=== PATIENT | female | born 1965 | race Caucasian/White ===

== ENCOUNTER 2022-10-01 05:01 | Emergency (ER) | payer OTHER, SELFPAY ==
[2022-10-01 05:05] VITALS: BP 128/68; PULSE 87; RESP 16; TEMP 36.7; O2SAT 96; BMI 34.9
--- NOTE | 2022-10-01 05:25 | ED_ITS ---
HPI - General Adult General Chief complaint: Extremity Injury, Upper Stated complaint: upper arm pain Time Seen by Provider: 10/01/22 05:14 Source: patient Mode of arrival: walk-in Limitations: no limitations History of Present Illness HPI narrative: patient in the Emergency Room is coming after she had a blood drawn four days ago ,she said after multiple attempts to draw blood work up ,patient is complaining of right arm pain at the elbow level that started the day after the blood draw The patient denies any nausea vomiting or any other concerns she denies any fever or any trauma she did take Tylenol at home for the pain that did not help Review of systems otherwise negative Related Data Home Medications Medication Instructions Recorded Confirmed aspirin 81 mg chewable tablet 81 mg PO DAILY 10/01/22 10/01/22 atorvastatin 20 mg tablet mg 10/01/22 bupropion HCl 300 mg 24 hr tablet, mg PO 10/01/22 extended release buspirone 15 mg tablet mg 10/01/22 carvedilol 3.125 mg tablet mg 10/01/22 cholecalciferol (vitamin D3) 1,250 10/01/22 mcg (50,000 unit) capsule dapagliflozin 10 mg tablet mg 10/01/22 (Farxiga) diltiazem HCl 120 mg mg PO 10/01/22 capsule,extended release 24 hr (Cartia XT) furosemide 40 mg tablet mg 10/01/22 glimepiride 4 mg tablet mg 10/01/22 lisinopril 2.5 mg tablet mg 10/01/22 magnesium oxide 400 mg (241.3 mg mg 10/01/22 magnesium) tablet omeprazole 20 mg capsule,delayed mg 10/01/22 release pramipexole 1 mg tablet mg 10/01/22 pregabalin 150 mg capsule (Lyrica) 150 mg PO DAILY 10/01/22 10/01/22 semaglutide 0.25 mg or 0.5 mg (2 mg subcut 10/01/22 mg/1.5 mL) subcutaneous pen injector (Ozempic) trazodone 100 mg tablet mg 10/01/22 Previous Rx's Medication Instructions Recorded ibuprofen 600 mg tablet 600 mg PO Q8H #10 tabs 10/01/22 Allergies Allergy/AdvReac Type Severity Reaction Status Date / Time No Known Drug Allergies Allergy Verified 10/01/22 05:09 Review of Systems ROS Status of ROS 10 or more systems reviewed and unremarkable except as noted in history and below Exam Narrative Exam Narrative: Nurses notes and vital signs reviewed and patient is not hypoxic. General: Well-appearing and in no apparent distress. Skin: Warm, dry, no pallor noted. No rash. Head: Normocephalic, atraumatic. Neck: Supple, non-tender. Eye: Pupils are equal, round and EOMI. No scleral icterus. Ears, Nose, Mouth, and Throat: TM are clear, no nasal mucosal hypertrophy. Oral mucosa is moist, no posterior oropharynx erythema, uvula is mid-line Cardiovascular: Regular Rate and Rhythm without murmur, gallop or rub. Respiratory: No accessory muscle use or respiratory distress. Lungs are clear to auscultation, no wheezing, rales or rhonchi Chest Wall: no tenderness Back: No midline thoracic or lumbar vertebral tenderness. No CVA tenderness Musculoskeletal: on examination the patient presents into the left upper extremity showed an area of subcutaneous hematoma mostly secondary to the blood draw, there was no signs of infection limited 2-1 cm right upper extremity pt had small subcutanous hematoma less than 1 cm at the elbow anteriorly , the pt elbow joint had and didn't want you to the pain that the patient had no erythema no hotness no redness and there is no signs of any elbow infection. Have normal capillary refill in her fingers and no vascular injury with a good radial pulse bilaterally GI: Abdomen is soft, non-distended. Normal bowel sounds. No masses appreciated. No tenderness to palpation. No rebound, guarding, or rigidity noted. Neurological: A&O x4. No cranial nerve dysfunction observed. No truncal ataxia. Moves all extremities. Sensation intact. Psychiatric: Cooperative and interactive. Normal mood and affect. Constitutional Vital Signs - 24 hr 10/01/22 05:05 Temperature 98.1 F Pulse Rate [Monitor Left] 87 Respiratory Rate 16 Blood Pressure [Left Arm] 128/68 H Pulse Oximetry 96 Oxygen Delivery Method Room Air Course Vital Signs Vital signs: Vital Signs Temperature 98.1 F 10/01/22 05:05 Pulse Rate 87 10/01/22 05:05 Respiratory Rate 16 10/01/22 05:05 Blood Pressure 128/68 H 10/01/22 05:05 Pulse Oximetry 96 10/01/22 05:05 Oxygen Delivery Method Room Air 10/01/22 05:05 Temperature 98.1 F 10/01/22 05:05 Pulse Rate 87 10/01/22 05:05 Respiratory Rate 16 10/01/22 05:05 Blood Pressure 128/68 H 10/01/22 05:05 Pulse Oximetry 96 10/01/22 05:05 Oxygen Delivery Method Room Air 10/01/22 05:05 Medical Decision Making MDM Narrative Medical decision making narrative: the patient presenting mostly with the phlebitis secondary to her recent blood draw she was given Toradol in the Emergency Room in addition to apply an Rufino wra p and instructed about using ice at home and also ibuprofen every eight hours for three days at the anti-inflammatory course---possible phlebitis The patient was still instructed to come back in case of any redness, swelling and increasing pain The patient is to followup with primary care physician in next 2-3 days or to return to the emergency department should any of the signs or symptoms worsen or new symptoms develop. The patient agrees with the following Diagnosis and Treatment plan and the patient will be discharged home. Discharge Plan Discharge Chief Complaint: Extremity Injury, Upper Clinical Impression: Phlebitis Patient Disposition: Home, Self-Care Time of Disposition Decision: 05:32 Condition: Good Mode of Transportation: Private Vehicle Prescriptions / Home Meds: New ibuprofen 600 mg tablet 600 mg PO Q8H Qty: 10 0RF Rx Instructions: please take with food No Action pramipexole 1 mg tablet furosemide 40 mg tablet atorvastatin 20 mg tablet carvedilol 3.125 mg tablet magnesium oxide 400 mg (241.3 mg magnesium) tablet trazodone 100 mg tablet glimepiride 4 mg tablet omeprazole 20 mg capsule,delayed release(DR/EC) diltiazem HCl [Cartia XT] 120 mg capsule,extended release 24hr PO lisinopril 2.5 mg tablet buspirone 15 mg tablet bupropion HCl 300 mg tablet extended release 24 hr PO cholecalciferol (vitamin D3) 1,250 mcg (50,000 unit) capsule Farxiga 10 mg tablet Ozempic 0.25 mg or 0.5 mg(2 mg/1.5 mL) pen injector SUBCUT aspirin 81 mg tablet,chewable 81 mg PO DAILY pregabalin [Lyrica] 150 mg capsule 150 mg PO DAILY Instructions: Phlebitis (ED) Stand Alone Forms: Portal Instructions Referrals: Shaikh Villalta MD [Primary Care Provider] - 1 week
[2022-10-01] MEDS: KETOROLAC TROMETHAMINE 30 MG/ML VIAL IM (05:46)
--- NOTE | 2022-10-01 05:59 | PC.NURSE ---
Pts right forearm and elbow maira wraped and pt placed in a sling prior to discharge A work note was given for today
== END 2022-10-01 06:01 | disposition home or self-care (01) ==
PROVIDERS: Emergency Provider Emergency Medicine; PCP Internal Medicine
DX: I80.8 Phlebitis and thrombophlebitis of other sites (principal); Z79.899 Other long term (current) drug therapy; Z79.82 Long term (current) use of aspirin
CPT/HCPCS: 96372; 99284

== ENCOUNTER 2022-10-23 00:33 | Observation (INO) | payer OTHER, SELFPAY ==
[2022-10-23] VITALS (26 sets, daily range): BP systolic 68–134; BP diastolic 48–89; PULSE 71–94; RESP 13–25; TEMP 36.4–36.5; O2SAT 3–96; BMI 35.2; BMI 36.7
--- NOTE | 2022-10-23 00:43 | ECG_ITS ---
[facility] Test Date: 2022-10-23 Pat Name: RAQUEL MAURICE Department: Room: - Gender: Female [employer] Person: : 1965 Requested By: SHAIKH SAWYER Order Number: [id number] Reading MD: MARIA FERNANDA MAST Measurements Intervals [place] Rate: 72 P: 62 VA: 178 QRS: 38 QRSD: 88 T: 60 QT: 396 QTc: 421 Interpretive Statements 1100 Sinus rhythm 4068 Nonspecific [place] abnormality 9130 borderline ECG No previous ECG available for comparison Electronically Signed On 10-23-2022 6:57:01 EDT by MARIA FERNANDA MAST
[2022-10-23 00:50] LABS: Glucometer 162 mg/dL (74-106)
[2022-10-23] MEDS: 0.9 % SODIUM CHLORIDE 1,000 ML 999 ML IV (01:04)
--- NOTE | 2022-10-23 01:06 | ED_ITS ---
HPI - Dizziness General Chief Complaint: Dizziness Stated Complaint: DIZZINESS Time Seen by Provider: 10/23/22 00:43 Source: patient Mode of arrival: walk-in Limitations: no limitations History of Present Illness HPI Narrative: patient experienced dizziness intermittently for the last two weeks. She has been taking Ozempic and has lost a lot of weight. She admittedly does not eat or drink enough. She told me that she works two jobs and it is difficult for her to drink enough water each day. During these episodes she describes feeling light headed and then things start to go black, like I am going to pass out but I don't. She said that her stationary fireman and her motor equipment lieutenant both monitor her labs and that her kidney function has been getting worse . Related Data Home Medications Medication Instructions Recorded Confirmed aspirin 81 mg chewable tablet 81 mg PO DAILY 10/01/22 10/01/22 atorvastatin 20 mg tablet mg 10/01/22 bupropion HCl 300 mg 24 hr tablet, mg PO 10/01/22 extended release buspirone 15 mg tablet mg 10/01/22 carvedilol 3.125 mg tablet mg 10/01/22 cholecalciferol (vitamin D3) 1,250 10/01/22 mcg (50,000 unit) capsule dapagliflozin 10 mg tablet mg 10/01/22 (Farxiga) diltiazem HCl 120 mg mg PO 10/01/22 capsule,extended release 24 hr (Cartia XT) furosemide 40 mg tablet mg 10/01/22 glimepiride 4 mg tablet mg 10/01/22 lisinopril 2.5 mg tablet mg 10/01/22 magnesium oxide 400 mg (241.3 mg mg 10/01/22 magnesium) tablet omeprazole 20 mg capsule,delayed mg 10/01/22 release pramipexole 1 mg tablet mg 10/01/22 pregabalin 150 mg capsule (Lyrica) 150 mg PO DAILY 10/01/22 10/01/22 semaglutide 0.25 mg or 0.5 mg (2 mg subcut 10/01/22 mg/1.5 mL) subcutaneous pen injector (Ozempic) trazodone 100 mg tablet mg 10/01/22 Previous Rx's Medication Instructions Recorded ibuprofen 600 mg tablet 600 mg PO Q8H #10 tabs 10/01/22 Allergies Allergy/AdvReac Type Severity Reaction Status Date / Time No Known Drug Allergies Allergy Verified 10/01/22 05:09 [facility] Social History Smoking status: Former smoker Exam Narrative Exam Narrative: Nurses notes and vital signs reviewed and patient is not hypoxic. afebrile HYPOTENSIVE General: Well-appearing and in no apparent distress. Skin: Warm, dry, no pallor noted. No rash. Head: Normocephalic, atraumatic. Eye: Pupils are equal, round and EOMI. No scleral icterus. Ears, Nose, Mouth, and Throat: Oral mucosa is dry Cardiovascular: Regular Rate and Rhythm without murmur, gallop or rub. Respiratory: No accessory muscle use or respiratory distress. Lungs are clear to auscultation, no wheezing, rales or rhonchi Musculoskeletal: normal ROM, no calf or popliteal tenderness, no lower extremity edema/swelling GI: Abdomen is soft, non-distended. Normal bowel sounds. No tenderness to palpation. No rebound, guarding, or rigidity noted. Neurological: A&O x4. No cranial nerve dysfunction observed. No truncal ataxia. Moves all extremities. Sensation intact. Psychiatric: Cooperative and interactive. Normal mood and affect. Constitutional Vital Signs - 24 hr 10/23/22 00:43 10/23/22 00:52 10/23/22 00:43 Temperature 97.6 F Pulse Rate Pulse Rate [Monitor Right] 78 Pulse Rate [orthostatic lying] 87 Pulse Rate [orthostatic sitting Right] Pulse Rate [orthostatic standing Right] Respiratory Rate 16 Blood Pressure Blood Pressure [Right Arm] 87/68 L Blood Pressure [orthostatic lying] 87/56 L Blood Pressure [orthostatic sitting Right Arm] Blood Pressure [orthostatic standing Right Arm] Pulse Oximetry 95 96 Oxygen Delivery Method Room Air 10/23/22 00:46 10/23/22 00:46 10/23/22 00:52 Temperature Pulse Rate 87 Pulse Rate [Monitor Right] Pulse Rate [orthostatic lying] Pulse Rate [orthostatic sitting Right] Pulse Rate [orthostatic standing Right] Respiratory Rate 16 Blood Pressure 87/68 L 87/56 L Blood Pressure [Right Arm] Blood Pressure [orthostatic lying] Blood Pressure [orthostatic sitting Right Arm] Blood Pressure [orthostatic standing Right Arm] Pulse Oximetry 3 L Oxygen Delivery Method 10/23/22 00:54 10/23/22 00:55 10/23/22 01:04 Temperature Pulse Rate 94 H 77 74 Pulse Rate [Monitor Right] Pulse Rate [orthostatic lying] Pulse Rate [orthostatic sitting Right] Pulse Rate [orthostatic standing Right] Respiratory Rate 16 18 21 Blood Pressure 72/52 L 68/48 L 91/50 L Blood Pressure [Right Arm] Blood Pressure [orthostatic lying] Blood Pressure [orthostatic sitting Right Arm] Blood Pressure [orthostatic standing Right Arm] Pulse Oximetry 95 Oxygen Delivery Method 10/23/22 00:54 10/23/22 00:55 10/23/22 01:15 Temperature Pulse Rate 75 Pulse Rate [Monitor Right] Pulse Rate [orthostatic lying] Pulse Rate [orthostatic sitting Right] 94 H Pulse Rate [orthostatic standing Right] 77 Respiratory Rate 18 Blood Pressure 85/54 L Blood Pressure [Right Arm] Blood Pressure [orthostatic lying] Blood Pressure [orthostatic sitting Right Arm] 72/52 L Blood Pressure [orthostatic standing Right Arm] 68/48 L Pulse Oximetry Oxygen Delivery Method 10/23/22 01:30 10/23/22 01:42 10/23/22 01:45 Temperature Pulse Rate 77 73 77 Pulse Rate [Monitor Right] Pulse Rate [orthostatic lying] Pulse Rate [orthostatic sitting Right] Pulse Rate [orthostatic standing Right] Respiratory Rate 25 H 18 19 Blood Pressure 97/59 L 89/54 L 89/57 L Blood Pressure [Right Arm] Blood Pressure [orthostatic lying] Blood Pressure [orthostatic sitting Right Arm] Blood Pressure [orthostatic standing Right Arm] Pulse Oximetry Oxygen Delivery Method 10/23/22 01:42 10/23/22 01:44 10/23/22 01:45 Temperature Pulse Rate Pulse Rate [Monitor Right] Pulse Rate [orthostatic lying] 76 Pulse Rate [orthostatic sitting Right] 81 Pulse Rate [orthostatic standing Right] 86 Respiratory Rate Blood Pressure Blood Pressure [Right Arm] Blood Pressure [orthostatic lying] 89/54 L Blood Pressure [orthostatic sitting Right Arm] 88/58 L Blood Pressure [orthostatic standing Right Arm] 89/57 L Pulse Oximetry Oxygen Delivery Method 10/23/22 01:45 10/23/22 02:00 Temperature Pulse Rate 82 79 Pulse Rate [Monitor Right] Pulse Rate [orthostatic lying] Pulse Rate [orthostatic sitting Right] Pulse Rate [orthostatic standing Right] Respiratory Rate 17 24 Blood Pressure 89/57 L 91/51 L Blood Pressure [Right Arm] Blood Pressure [orthostatic lying] Blood Pressure [orthostatic sitting Right Arm] Blood Pressure [orthostatic standing Right Arm] Pulse Oximetry Oxygen Delivery Method Course Vital Signs Vital signs: Vital Signs Temperature 97.6 F 10/23/22 00:43 Pulse Rate 78 10/23/22 00:43 Respiratory Rate 16 10/23/22 00:43 Blood Pressure 87/68 L 10/23/22 00:43 Pulse Oximetry 95 10/23/22 00:43 Oxygen Delivery Method Room Air 10/23/22 00:43 Temperature 97.6 F 10/23/22 00:43 Pulse Rate 79 10/23/22 02:00 Respiratory Rate 24 10/23/22 02:00 Blood Pressure 91/51 L 10/23/22 02:00 Pulse Oximetry 95 10/23/22 00:55 Oxygen Delivery Method Room Air 10/23/22 00:43 MDM - Dizziness MDM Narrative Medical decision making narrative: the patient presents with dizziness. Patient was placed on compliance monitor and EKG obtained. Blood drawn and sent for evaluation. She was found to have orthostatic hypotension. She was ordered to receive a liter of normal saline IV fluid. POC glucose = 162. Normal CBC. Elevated glucose and slightly decreased Na. Normal K. CO2 = 23. Elevated BUN and Cr = 41, 3.1. This is markedly worse than her last values of 31, 1.75 on 08/07/22. Repeat orthostatics after 1st liter of NS IVF were negative but she remained hypotensive. She was ordered to receive another liter of NS IVF. She has hyperglycemia and admittedly decreased oral intake of food and fluids. She has markedly worsened renal function. Her blood pressure is only slowly increasing. She may be an additional 2-3 liters behind on her fluids. I reached out to the tele-hospitalist complex care nurse practitioner to discuss an observation admission for dehydration and acute renal injury for this patient. Dr Fong asked that the patient be obs admit to med/surg with telemetry. Patient agreeable to admission Lab Data Attestation: I reviewed the patient's lab results. Labs: Lab Results 10/23/22 10/23/22 Range/Units 00:20 00:49 WBC 8.5 (4.0-11.0) 10^3/uL RBC 4.48 (4.20-5.40) 10^6/uL Hgb 13.3 (12.0-16.0) g/dL Hct 39.9 (36.0-48.0) % MCV 89.1 (81.0-99.0) fL MCH 29.7 (26.7-34.0) pg MCHC 33.3 (29.9-35.2) g/dL RDW 14.1 (11.0-15.0) % Plt Count 209 (150-450) 10^3/uL MPV 9.8 (9.5-13.5) fL Neut % (Auto) 68.1 (43.0-75.0) % Lymph % (Auto) 21.4 (20.5-60.0) % [place] % (Auto) 8.2 (1.7-12.0) % Eos % (Auto) 1.1 (0.9-7.0) % Baso % (Auto) 0.8 (0.2-2.0) % Neut # (Auto) 5.8 (1.4-6.5) 10^3/uL Lymph # (Auto) 1.8 (1.2-3.8) 10^3/uL [place] # (Auto) 0.7 (0.3-0.8) 10^3/uL Eos # (Auto) 0.1 (0.0-0.7) 10^3/uL Baso # (Auto) 0.1 (0.0-0.1) 10^3/uL Abs Immat Gran (auto) 0.03 (0.00-0.03) 10^3/uL Imm/Tot Granulo (auto) 0.4 (0.0-0.5) % Sodium 133 L (136-145) mmol/L Potassium 4.0 (3.5-5.1) mmol/L Chloride 99 (98-107) mmol/L Carbon Dioxide 23.1 (21.0-32.0) mmol/L Anion Gap 14.9 BUN 41.0 H (7.0-18.0) mg/dL Creatinine 3.10 H (0.55-1.02) mg/dL Est GFR ( Amer) 19 L (>=60) Est GFR (Non-Af Amer) 16 L (>=60) BUN/Creatinine Ratio 13.2 Glucose 159 H (74-106) mg/dL Calcium 9.5 (8.5-10.1) mg/dL Total Bilirubin 0.5 (0.2-1.0) mg/dL AST 15 (15-37) U/L ALT 20 (14-59) U/L Alkaline Phosphatase 136 H (46-116) U/L Total Protein 8.4 H (6.4-8.2) g/dL Albumin 3.7 (3.4-5.0) g/dL Globulin 4.7 g/dL Albumin/Globulin Ratio 0.8 POC Glucose 162 H (74-106) mg/dL ECG Data Interpretation: EKG interpretation: Emergency Department physician interpretation. Normal sinus rhythm at 72bpm. Normal axis, normal intervals and non-specific ST changes. No ST segment elevation or depression. Discharge Plan Discharge Chief Complaint: Dizziness Clinical Impression: Acute kidney injury, Orthostatic hypotension Patient Disposition: Admitted as Observation Time of Disposition Decision: 02:43 Prescriptions / Home Meds: No Action pramipexole 1 mg tablet furosemide 40 mg tablet atorvastatin 20 mg tablet carvedilol 3.125 mg tablet magnesium oxide 400 mg (241.3 mg magnesium) tablet trazodone 100 mg tablet glimepiride 4 mg tablet omeprazole 20 mg capsule,delayed release(DR/EC) diltiazem HCl [Cartia XT] 120 mg capsule,extended release 24hr PO lisinopril 2.5 mg tablet buspirone 15 mg tablet bupropion HCl 300 mg tablet extended release 24 hr PO cholecalciferol (vitamin D3) 1,250 mcg (50,000 unit) capsule Farxiga 10 mg tablet Ozempic 0.25 mg or 0.5 mg(2 mg/1.5 mL) pen injector SUBCUT aspirin 81 mg tablet,chewable 81 mg PO DAILY pregabalin [Lyrica] 150 mg capsule 150 mg PO DAILY ibuprofen 600 mg tablet 600 mg PO Q8H Qty: 10 0RF Rx Instructions: please take with food Additional Instructions: admit to dr yang, med/surg with telemetry Referrals: Shaikh Villalta MD [Primary Care Provider] - 1 week
[2022-10-23 01:09] LABS: Basophils Absolute Auto 0.1 10^3/uL (0.0-0.1); Basophils Percent Auto 0.8 % (0.2-2.0); Eosinophils Absolute Auto 0.1 10^3/uL (0.0-0.7); Eosinophils Percent Auto 1.1 % (0.9-7.0); Hematocrit 39.9 % (36.0-48.0); Hemoglobin 13.3 g/dL (12.0-16.0); Immature Granulocytes Abs Auto 0.03 10^3/uL (0.00-0.03); Immature Granulocytes Pct Auto 0.4 % (0.0-0.5); Lymphocytes Absolute Auto 1.8 10^3/uL (1.2-3.8); Lymphocytes Percent Auto 21.4 % (20.5-60.0); Mean Corpuscular HGB Conc 33.3 g/dL (29.9-35.2); Mean Corpuscular Hemoglobin 29.7 pg (26.7-34.0); Mean Corpuscular Volume 89.1 fL (81.0-99.0); Mean Platelet Volume 9.8 fL (9.5-13.5); Monocytes Absolute Auto 0.7 10^3/uL (0.3-0.8); Monocytes Percent Auto 8.2 % (1.7-12.0); Neutrophils Absolute Auto 5.8 10^3/uL (1.4-6.5); Neutrophils Percent Auto 68.1 % (43.0-75.0); Platelet Count 209 10^3/uL (150-450); Red Blood Count 4.48 10^6/uL (4.20-5.40); Red Cell Distribution Width 14.1 % (11.0-15.0); White Blood Count 8.5 10^3/uL (4.0-11.0)
[2022-10-23 01:27] LABS: Alanine Aminotransferase 20 U/L (14-59); Albumin Globulin Ratio 0.8; Albumin Level 3.7 g/dL (3.4-5.0); Alkaline Phosphatase 136 U/L (46-116); Anion Gap 14.9; Aspartate Amino Transferase 15 U/L (15-37); BUN Creatinine Ratio 13.2; Bilirubin Total 0.5 mg/dL (0.2-1.0); Calcium 9.5 mg/dL (8.5-10.1); Carbon Dioxide 23.1 mmol/L (21.0-32.0); Chloride 99 mmol/L (98-107); Estimated GFR (African America 19 (>=60); Estimated GFR (Non-African Ame 16 (>=60); Globulin 4.7 g/dL; Glucose 159 mg/dL (74-106); Sodium 133 mmol/L (136-145); Total Protein 8.4 g/dL (6.4-8.2)
[2022-10-23] MEDS: 0.9 % SODIUM CHLORIDE 1,000 ML 1000 ML IV (02:10)
--- NOTE | 2022-10-23 04:53 | P.PN_ITS ---
Progress Note: Subjective Subjective Interval history: Patient complains of weakness, dizziness This is a 56 years old female presents with above complaints. Patient's past medical history significant for chronic kidney disease, diabetes, hypertension. For the last year patient confusion Ozempic and attempt to lose weight. She succeeded, but seems that her oral intake significantly diminished as well. On presentation emergency room patient found to have significantly worsening renal parameters (increased BUN and creatinine. Patient has orthostatic changes in her vital signs. Admitted for IV hydration. Exam Narrative Exam Narrative: Physical Exam: Not in distress, pleasant, lucid, cooperative, Head - atraumatic, eyes - pupils equal, round, reactive to light, extra ocular movement intact, MMM Neck - supple, thyroid not enlarged, LN not palpated Lungs - clear to auscultation, no dullness on percussion CVS - heart sounds S1, S2, no additional murmurs gallop, regular rate and rhythm Gastrointestinal?abdomen is soft, non-tender, non-distended, no organomegaly, positive bowel sounds Extremities no clubbing, cyanosis or edema Neurological?cranial nerve II?XII grossly intact, no meningeal signs, no cerebellar signs, no sensory deficit Musculoskeletal - joints, no effusions, ROM preserved Dermatological - the skin dry, warm, no rashes Psychiatric?patient is AAO X3, patient has normal affect Constitutional Vital Signs - 24 hr 10/23/22 00:43 10/23/22 00:52 10/23/22 00:43 Temperature 97.6 F Pulse Rate Pulse Rate [Monitor Right] 78 Pulse Rate [orthostatic lying] 87 Pulse Rate [orthostatic sitting Right] Pulse Rate [orthostatic standing Right] Respiratory Rate 16 Blood Pressure Blood Pressure [Right Arm] 87/68 L Blood Pressure [orthostatic lying] 87/56 L Blood Pressure [orthostatic sitting Right Arm] Blood Pressure [orthostatic standing Right Arm] Pulse Oximetry 95 96 Oxygen Delivery Method Room Air 10/23/22 00:46 10/23/22 00:46 10/23/22 00:52 Temperature Pulse Rate 87 Pulse Rate [Monitor Right] Pulse Rate [orthostatic lying] Pulse Rate [orthostatic sitting Right] Pulse Rate [orthostatic standing Right] Respiratory Rate 16 Blood Pressure 87/68 L 87/56 L Blood Pressure [Right Arm] Blood Pressure [orthostatic lying] Blood Pressure [orthostatic sitting Right Arm] Blood Pressure [orthostatic standing Right Arm] Pulse Oximetry 3 L Oxygen Delivery Method 10/23/22 00:54 10/23/22 00:55 10/23/22 01:04 Temperature Pulse Rate 94 H 77 74 Pulse Rate [Monitor Right] Pulse Rate [orthostatic lying] Pulse Rate [orthostatic sitting Right] Pulse Rate [orthostatic standing Right] Respiratory Rate 16 18 21 Blood Pressure 72/52 L 68/48 L 91/50 L Blood Pressure [Right Arm] Blood Pressure [orthostatic lying] Blood Pressure [orthostatic sitting Right Arm] Blood Pressure [orthostatic standing Right Arm] Pulse Oximetry 95 Oxygen Delivery Method 10/23/22 00:54 10/23/22 00:55 10/23/22 01:15 Temperature Pulse Rate 75 Pulse Rate [Monitor Right] Pulse Rate [orthostatic lying] Pulse Rate [orthostatic sitting Right] 94 H Pulse Rate [orthostatic standing Right] 77 Respiratory Rate 18 Blood Pressure 85/54 L Blood Pressure [Right Arm] Blood Pressure [orthostatic lying] Blood Pressure [orthostatic sitting Right Arm] 72/52 L Blood Pressure [orthostatic standing Right Arm] 68/48 L Pulse Oximetry Oxygen Delivery Method 10/23/22 01:30 10/23/22 01:42 10/23/22 01:45 Temperature Pulse Rate 77 73 77 Pulse Rate [Monitor Right] Pulse Rate [orthostatic lying] Pulse Rate [orthostatic sitting Right] Pulse Rate [orthostatic standing Right] Respiratory Rate 25 H 18 19 Blood Pressure 97/59 L 89/54 L 89/57 L Blood Pressure [Right Arm] Blood Pressure [orthostatic lying] Blood Pressure [orthostatic sitting Right Arm] Blood Pressure [orthostatic standing Right Arm] Pulse Oximetry Oxygen Delivery Method 10/23/22 01:42 10/23/22 01:44 10/23/22 01:45 Temperature Pulse Rate Pulse Rate [Monitor Right] Pulse Rate [orthostatic lying] 76 Pulse Rate [orthostatic sitting Right] 81 Pulse Rate [orthostatic standing Right] 86 Respiratory Rate Blood Pressure Blood Pressure [Right Arm] Blood Pressure [orthostatic lying] 89/54 L Blood Pressure [orthostatic sitting Right Arm] 88/58 L Blood Pressure [orthostatic standing Right Arm] 89/57 L Pulse Oximetry Oxygen Delivery Method 10/23/22 01:45 10/23/22 02:00 10/23/22 02:00 Temperature Pulse Rate 82 79 76 Pulse Rate [Monitor Right] Pulse Rate [orthostatic lying] Pulse Rate [orthostatic sitting Right] Pulse Rate [orthostatic standing Right] Respiratory Rate 17 24 13 Blood Pressure 89/57 L 91/51 L 91/51 L Blood Pressure [Right Arm] Blood Pressure [orthostatic lying] Blood Pressure [orthostatic sitting Right Arm] Blood Pressure [orthostatic standing Right Arm] Pulse Oximetry Oxygen Delivery Method 10/23/22 02:15 10/23/22 02:30 10/23/22 03:20 Temperature Pulse Rate 76 79 86 Pulse Rate [Monitor Right] Pulse Rate [orthostatic lying] Pulse Rate [orthostatic sitting Right] Pulse Rate [orthostatic standing Right] Respiratory Rate 16 16 Blood Pressure 86/51 L 94/57 L Blood Pressure [Right Arm] Blood Pressure [orthostatic lying] Blood Pressure [orthostatic sitting Right Arm] Blood Pressure [orthostatic standing Right Arm] Pulse Oximetry Oxygen Delivery Method 10/23/22 02:46 10/23/22 03:13 10/23/22 03:20 Temperature Pulse Rate 77 93 H Pulse Rate [Monitor Right] Pulse Rate [orthostatic lying] Pulse Rate [orthostatic sitting Right] Pulse Rate [orthostatic standing Right] Respiratory Rate 21 25 H Blood Pressure 105/57 L Blood Pressure [Right Arm] Blood Pressure [orthostatic lying] Blood Pressure [orthostatic sitting Right Arm] Blood Pressure [orthostatic standing Right Arm] Pulse Oximetry Oxygen Delivery Method 10/23/22 03:30 10/23/22 03:40 10/23/22 03:53 Temperature Pulse Rate 71 77 74 Pulse Rate [Monitor Right] Pulse Rate [orthostatic lying] Pulse Rate [orthostatic sitting Right] Pulse Rate [orthostatic standing Right] Respiratory Rate 13 20 Blood Pressure Blood Pressure [Right Arm] Blood Pressure [orthostatic lying] Blood Pressure [orthostatic sitting Right Arm] Blood Pressure [orthostatic standing Right Arm] Pulse Oximetry Oxygen Delivery Method Progress Note: Objective Labs Labs: Short CBC 10/23/22 Range/Units 00:20 WBC 8.5 (4.0-11.0) 10^3/uL Hgb 13.3 (12.0-16.0) g/dL Hct 39.9 (36.0-48.0) % Plt Count 209 (150-450) 10^3/uL BMP 10/23/22 00:20 Sodium 133 L Potassium 4.0 Chloride 99 Carbon Dioxide 23.1 BUN 41.0 H Creatinine 3.10 H Glucose 159 H Calcium 9.5 Liver Function 10/23/22 Range/Units 00:20 Total Bilirubin 0.5 (0.2-1.0) mg/dL AST 15 (15-37) U/L ALT 20 (14-59) U/L Alkaline Phosphatase 136 H (46-116) U/L Albumin 3.7 (3.4-5.0) g/dL Progress Note: A&P Assessment and Plan (1) Acute kidney injury: Assessment and Plan: To be related to side effects of Ozempic that is patient appears to be dehydrated Started on IV fluid resuscitation Monitor kidney function closely Avoid use of nephrotoxic medications (2) Orthostatic hypotension: Assessment and Plan: Related to above Fall precautions in place Continue with IV fluids Check orthostatic vital signs (3) Diabetes: Assessment and Plan: DM- continue with ADA diet - hold off oral hypoglycemic agents while in the hospital to avoid hypoglycemic episodes - frequent accuchecks (TID AC + HS) - will provide coverage with long acting insulin as well as short acting insulin with meals - adjust as needed - hypoglycemia protocol in place (4) Hypertension: Assessment and Plan: Patient blood pressure appears to be low. Hold home antihypertensive medications (5) Chronic kidney disease (CKD): Assessment and Plan: Patient's baseline kidney function got significantly worse. Monitor BUN and creatinine after IV fluid challenge Telemedicine Attestation Telemedicine Attestation I conducted this encounter from [[place]] via secure live, [id number] video conference with the patient, located at [facility] with [dehydration]. Prior to the interview, the risks and benefits of telemedicine were discussed with the patient and verbal consent was obtained.
[2022-10-23 06:13] LABS: Basophils Absolute Auto 0.1 10^3/uL (0.0-0.1); Basophils Percent Auto 0.7 % (0.2-2.0); Eosinophils Absolute Auto 0.1 10^3/uL (0.0-0.7); Eosinophils Percent Auto 0.8 % (0.9-7.0); Hematocrit 39.1 % (36.0-48.0); Hemoglobin 12.7 g/dL (12.0-16.0); Immature Granulocytes Abs Auto 0.02 10^3/uL (0.00-0.03); Immature Granulocytes Pct Auto 0.3 % (0.0-0.5); Lymphocytes Absolute Auto 1.2 10^3/uL (1.2-3.8); Mean Corpuscular HGB Conc 32.5 g/dL (29.9-35.2); Mean Corpuscular Hemoglobin 29.5 pg (26.7-34.0); Mean Corpuscular Volume 90.7 fL (81.0-99.0); Mean Platelet Volume 9.7 fL (9.5-13.5); Monocytes Absolute Auto 0.5 10^3/uL (0.3-0.8); Monocytes Percent Auto 7.6 % (1.7-12.0); Neutrophils Absolute Auto 5.2 10^3/uL (1.4-6.5); Neutrophils Percent Auto 73.6 % (43.0-75.0); Platelet Count 174 10^3/uL (150-450); Red Blood Count 4.31 10^6/uL (4.20-5.40); Red Cell Distribution Width 14.1 % (11.0-15.0); White Blood Count 7.1 10^3/uL (4.0-11.0)
[2022-10-23] MEDS: 0.9 % SODIUM CHLORIDE 1,000 ML 100 ML IV (06:15)
[2022-10-23 06:33] LABS: Alanine Aminotransferase 18 U/L (14-59); Albumin Globulin Ratio 0.8; Albumin Level 3.4 g/dL (3.4-5.0); Alkaline Phosphatase 131 U/L (46-116); Anion Gap 10.3; Aspartate Amino Transferase 11 U/L (15-37); BUN Creatinine Ratio 16.2; Bilirubin Total 0.3 mg/dL (0.2-1.0); Calcium 9.3 mg/dL (8.5-10.1); Carbon Dioxide 25.9 mmol/L (21.0-32.0); Chloride 103 mmol/L (98-107); Chol HDL Ratio 3.7; Cholesterol 169 mg/dL (<=200); Estimated GFR (African America 23 (>=60); Estimated GFR (Non-African Ame 19 (>=60); Globulin 4.3 g/dL; Glucose 128 mg/dL (74-106); HDL Cholesterol 46 mg/dL (40-60); Magnesium 2.2 mg/dL (1.8-2.4); Potassium 4.2 mmol/L (3.5-5.1); Prealbumin 32.8 mg/dL (20.9-45.5); Sodium 135 mmol/L (136-145); Total Protein 7.7 g/dL (6.4-8.2); Triglycerides 180 mg/dL (<=150)
[2022-10-23] MEDS: MAGNESIUM OXIDE 400 MG TABLET PO (08:40)
[2022-10-23] MEDS: OMEPRAZOLE 20 MG CAPSULE.DR 40 MG PO (08:40)
[2022-10-23] MEDS: DILTIAZEM HCL 120 MG CAP.ER.24H PO (08:40)
[2022-10-23] MEDS: PRAMIPEXOLE 1 MG TABLET 0.5 MG PO (08:41)
[2022-10-23] MEDS: PREGABALIN 75 MG CAPSULE 150 MG PO (08:41)
--- NOTE | 2022-10-23 10:22 | PM.HP ---
H&P: HPI History of Present Illness Chief complaint: Lightheadedness Narrative: 56 y/o female to ER c/o lightheadedness for over 1 week. Feels very lightheaded when up and moving. Develops black on sides of vision and feels like will pass out but no LOC. Working a lot and not drinking as much over past week. Continued symptoms and to ER. Afebrile. BP low and orthostatic hypotension in ER. Labs showed MELODY. Started IV fluids and admitted. Much improved overnight. Not having lightheadedness and BP improved. Ambulating around room without difficulty. Review of Systems ROS Constitutional Denies: fever, chills or night sweats Cardiovascular Reports: lightheadedness; Denies: chest pain, palpitations or edema Respiratory Denies: shortness of breath, cough or wheezing Gastrointestinal Denies: abdominal pain, nausea, vomiting or diarrhea Genitourinary Denies: painful urination PFSH PFSH Social History Smoking status: Former smoker Meds Home Medications and Allergies Home Medications Medication Instructions Recorded Confirmed Type aspirin 81 mg chewable tablet 81 mg PO DAILY 10/01/22 10/01/22 History atorvastatin 20 mg tablet mg 10/01/22 History bupropion HCl 300 mg 24 hr tablet, mg PO 10/01/22 History extended release buspirone 15 mg tablet mg 10/01/22 History carvedilol 3.125 mg tablet mg 10/01/22 History cholecalciferol (vitamin D3) 1,250 10/01/22 History mcg (50,000 unit) capsule dapagliflozin 10 mg tablet mg 10/01/22 History (Farxiga) diltiazem HCl 120 mg mg PO 10/01/22 History capsule,extended release 24 hr (Cartia XT) furosemide 40 mg tablet mg 10/01/22 History glimepiride 4 mg tablet mg 10/01/22 History ibuprofen 600 mg tablet 600 mg PO Q8H #10 tabs 10/01/22 Rx lisinopril 2.5 mg tablet mg 10/01/22 History magnesium oxide 400 mg (241.3 mg mg 10/01/22 History magnesium) tablet omeprazole 20 mg capsule,delayed mg 10/01/22 History release pramipexole 1 mg tablet mg 10/01/22 History pregabalin 150 mg capsule (Lyrica) 150 mg PO DAILY 10/01/22 10/01/22 History semaglutide 0.25 mg or 0.5 mg (2 mg subcut 10/01/22 History mg/1.5 mL) subcutaneous pen injector (Ozempic) trazodone 100 mg tablet mg 10/01/22 History Allergies Allergy/AdvReac Type Severity Reaction Status Date / Time No Known Drug Allergies Allergy Verified 10/01/22 05:09 Exam Constitutional Vital Signs - 24 hr 10/23/22 00:43 10/23/22 00:52 10/23/22 00:43 Temperature 97.6 F Pulse Rate Pulse Rate [Monitor Right] 78 Pulse Rate [orthostatic lying] 87 Pulse Rate [orthostatic sitting Right] Pulse Rate [orthostatic standing Right] Respiratory Rate 16 Blood Pressure Blood Pressure [Right Arm] 87/68 L Blood Pressure [orthostatic lying] 87/56 L Blood Pressure [orthostatic sitting Right Arm] Blood Pressure [orthostatic standing Right Arm] Pulse Oximetry 95 96 Oxygen Delivery Method Room Air 10/23/22 00:46 10/23/22 00:46 10/23/22 00:52 Temperature Pulse Rate 87 Pulse Rate [Monitor Right] Pulse Rate [orthostatic lying] Pulse Rate [orthostatic sitting Right] Pulse Rate [orthostatic standing Right] Respiratory Rate 16 Blood Pressure 87/68 L 87/56 L Blood Pressure [Right Arm] Blood Pressure [orthostatic lying] Blood Pressure [orthostatic sitting Right Arm] Blood Pressure [orthostatic standing Right Arm] Pulse Oximetry 3 L Oxygen Delivery Method 10/23/22 00:54 10/23/22 00:55 10/23/22 01:04 Temperature Pulse Rate 94 H 77 74 Pulse Rate [Monitor Right] Pulse Rate [orthostatic lying] Pulse Rate [orthostatic sitting Right] Pulse Rate [orthostatic standing Right] Respiratory Rate 16 18 21 Blood Pressure 72/52 L 68/48 L 91/50 L Blood Pressure [Right Arm] Blood Pressure [orthostatic lying] Blood Pressure [orthostatic sitting Right Arm] Blood Pressure [orthostatic standing Right Arm] Pulse Oximetry 95 Oxygen Delivery Method 10/23/22 00:54 10/23/22 00:55 10/23/22 01:15 Temperature Pulse Rate 75 Pulse Rate [Monitor Right] Pulse Rate [orthostatic lying] Pulse Rate [orthostatic sitting Right] 94 H Pulse Rate [orthostatic standing Right] 77 Respiratory Rate 18 Blood Pressure 85/54 L Blood Pressure [Right Arm] Blood Pressure [orthostatic lying] Blood Pressure [orthostatic sitting Right Arm] 72/52 L Blood Pressure [orthostatic standing Right Arm] 68/48 L Pulse Oximetry Oxygen Delivery Method 10/23/22 01:30 10/23/22 01:42 10/23/22 01:45 Temperature Pulse Rate 77 73 77 Pulse Rate [Monitor Right] Pulse Rate [orthostatic lying] Pulse Rate [orthostatic sitting Right] Pulse Rate [orthostatic standing Right] Respiratory Rate 25 H 18 19 Blood Pressure 97/59 L 89/54 L 89/57 L Blood Pressure [Right Arm] Blood Pressure [orthostatic lying] Blood Pressure [orthostatic sitting Right Arm] Blood Pressure [orthostatic standing Right Arm] Pulse Oximetry Oxygen Delivery Method 10/23/22 01:42 10/23/22 01:44 10/23/22 01:45 Temperature Pulse Rate Pulse Rate [Monitor Right] Pulse Rate [orthostatic lying] 76 Pulse Rate [orthostatic sitting Right] 81 Pulse Rate [orthostatic standing Right] 86 Respiratory Rate Blood Pressure Blood Pressure [Right Arm] Blood Pressure [orthostatic lying] 89/54 L Blood Pressure [orthostatic sitting Right Arm] 88/58 L Blood Pressure [orthostatic standing Right Arm] 89/57 L Pulse Oximetry Oxygen Delivery Method 10/23/22 01:45 10/23/22 02:00 10/23/22 02:00 Temperature Pulse Rate 82 79 76 Pulse Rate [Monitor Right] Pulse Rate [orthostatic lying] Pulse Rate [orthostatic sitting Right] Pulse Rate [orthostatic standing Right] Respiratory Rate 17 24 13 Blood Pressure 89/57 L 91/51 L 91/51 L Blood Pressure [Right Arm] Blood Pressure [orthostatic lying] Blood Pressure [orthostatic sitting Right Arm] Blood Pressure [orthostatic standing Right Arm] Pulse Oximetry Oxygen Delivery Method 10/23/22 02:15 10/23/22 02:30 10/23/22 03:20 Temperature Pulse Rate 76 79 86 Pulse Rate [Monitor Right] Pulse Rate [orthostatic lying] Pulse Rate [orthostatic sitting Right] Pulse Rate [orthostatic standing Right] Respiratory Rate 16 16 Blood Pressure 86/51 L 94/57 L Blood Pressure [Right Arm] Blood Pressure [orthostatic lying] Blood Pressure [orthostatic sitting Right Arm] Blood Pressure [orthostatic standing Right Arm] Pulse Oximetry Oxygen Delivery Method 10/23/22 03:20 10/23/22 03:20 10/23/22 02:46 Temperature 97.6 F Pulse Rate 74 Pulse Rate [Monitor Right] 78 Pulse Rate [orthostatic lying] Pulse Rate [orthostatic sitting Right] Pulse Rate [orthostatic standing Right] Respiratory Rate 20 20 Blood Pressure 105/57 L Blood Pressure [Right Arm] 134/79 H Blood Pressure [orthostatic lying] Blood Pressure [orthostatic sitting Right Arm] Blood Pressure [orthostatic standing Right Arm] Pulse Oximetry 95 95 Oxygen Delivery Method Room Air Room Air 10/23/22 03:13 10/23/22 03:20 10/23/22 03:30 Temperature Pulse Rate 77 93 H 71 Pulse Rate [Monitor Right] Pulse Rate [orthostatic lying] Pulse Rate [orthostatic sitting Right] Pulse Rate [orthostatic standing Right] Respiratory Rate 21 25 H 13 Blood Pressure Blood Pressure [Right Arm] Blood Pressure [orthostatic lying] Blood Pressure [orthostatic sitting Right Arm] Blood Pressure [orthostatic standing Right Arm] Pulse Oximetry Oxygen Delivery Method 10/23/22 03:40 10/23/22 03:53 10/23/22 05:32 Temperature 97.7 F Pulse Rate 77 74 75 Pulse Rate [Monitor Right] Pulse Rate [orthostatic lying] Pulse Rate [orthostatic sitting Right] Pulse Rate [orthostatic standing Right] Respiratory Rate 20 18 Blood Pressure Blood Pressure [Right Arm] 108/71 Blood Pressure [orthostatic lying] Blood Pressure [orthostatic sitting Right Arm] Blood Pressure [orthostatic standing Right Arm] Pulse Oximetry 91 L Oxygen Delivery Method Room Air 10/23/22 06:01 10/23/22 06:03 10/23/22 06:03 Temperature Pulse Rate 82 Pulse Rate [Monitor Right] Pulse Rate [orthostatic lying] Pulse Rate [orthostatic sitting Right] Pulse Rate [orthostatic standing Right] Respiratory Rate Blood Pressure 99/66 123/85 H Blood Pressure [Right Arm] Blood Pressure [orthostatic lying] Blood Pressure [orthostatic sitting Right Arm] Blood Pressure [orthostatic standing Right Arm] Pulse Oximetry Oxygen Delivery Method 10/23/22 06:04 10/23/22 07:59 10/23/22 09:58 Temperature Pulse Rate 79 82 Pulse Rate [Monitor Right] Pulse Rate [orthostatic lying] Pulse Rate [orthostatic sitting Right] Pulse Rate [orthostatic standing Right] Respiratory Rate Blood Pressure 127/89 H Blood Pressure [Right Arm] Blood Pressure [orthostatic lying] Blood Pressure [orthostatic sitting Right Arm] Blood Pressure [orthostatic standing Right Arm] Pulse Oximetry Oxygen Delivery Method Documenting provider has reviewed patient's vital signs: yes Common normals: no apparent distress, oriented x3 and alert HENMT Common normals: normocephalic Eye Common normals: PERRL and EOMs intact bilaterally Respiratory Common normals: clear to auscultation bilaterally Cardio Common normals: regular rate, regular rhythm, no gallops, no murmurs and no rub GI Common normals: Normal to inspection, nondistended, normoactive bowel sounds present Extremity General: no edema Results Labs Labs: Short CBC 10/23/22 10/23/22 Range/Units 00:20 06:07 WBC 8.5 7.1 (4.0-11.0) 10^3/uL Hgb 13.3 12.7 (12.0-16.0) g/dL Hct 39.9 39.1 (36.0-48.0) % Plt Count 209 174 (150-450) 10^3/uL BMP 10/23/22 10/23/22 00:20 06:07 Sodium 133 L 135 L Potassium 4.0 4.2 Chloride 99 103 Carbon Dioxide 23.1 25.9 BUN 41.0 H 42.0 H Creatinine 3.10 H 2.60 H Glucose 159 H 128 H Calcium 9.5 9.3 Liver Function 10/23/22 10/23/22 Range/Units 00:20 06:07 Total Bilirubin 0.5 0.3 (0.2-1.0) mg/dL AST 15 11 L (15-37) U/L ALT 20 18 (14-59) U/L Alkaline Phosphatase 136 H 131 H (46-116) U/L Albumin 3.7 3.4 (3.4-5.0) g/dL Assessment and Plan Assessment and Plan (1) Acute kidney injury: (2) Orthostatic hypotension: (3) Diabetes: (4) Hypertension: (5) Chronic kidney disease (CKD): Plan 1. MELODY 2. orthostatic hypotension 3. Dehydration 4. DM2 with hyperglycemia 5. HTN 6. CKD 3b Presented with low BP and MELODY due to dehydration. Treated with IV fluids and symptoms improved. BP normal and ambulating without symptoms. Renal function improved. Discharge home. Increase fluid intake. Resume home medication without change. F/u with PCP in 1-2 weeks.
[2022-10-23 11:30] LABS: Glucometer 89 mg/dL (74-106)
--- NOTE | 2022-10-24 14:25 | CM.DCFOLLOWU ---
No answer 10/24/22
--- NOTE | 2022-10-26 15:57 | CM.DCFOLLOWU ---
Person spoke with: Shirley How are you feeling? good How is your pain? None Did you understand your discharge instructions? Yes Do you have any questions about your discharge instructions? No Were you given any prescriptions at discharge? Were you able to get your prescriptions filled? Do you understand how to take your medications as ordered? Yes Do you have any questions about your follow up appointment and do you plan to keep your follow up appointment? Will schedule Saturday Is there anything else that you would like to discuss? No Questions/Comments/Concerns/Other:
== END 2022-10-23 12:52 | disposition home or self-care (01) ==
LOC: ER 03:03 → MS 03:11
PROVIDERS: Admitting Provider Internal Medicine; Emergency Provider Emergency Medicine; PCP Internal Medicine; Visit Provider Family Medicine
DX: N17.9 Acute kidney failure, unspecified (principal); I12.9 Hypertensive chronic kidney disease with stage 1 through stage 4 chronic kidney disease, or unspecified chronic kidney disease; I95.1 Orthostatic hypotension; E86.0 Dehydration; E11.65 Type 2 diabetes mellitus with hyperglycemia; E11.22 Type 2 diabetes mellitus with diabetic chronic kidney disease; N18.32 Chronic kidney disease, stage 3b; Z87.891 Personal history of nicotine dependence; Z79.82 Long term (current) use of aspirin; Z79.899 Other long term (current) drug therapy
CPT/HCPCS: 36415; 80053; 80061; 82948; 83735; 84134; 85025; 93005; 96360; 99285; G0378; Q3014

== ENCOUNTER 2022-11-05 10:40 | Outpatient (OUT) | payer OTHER, SELFPAY ==
--- NOTE | 2022-11-05 11:15 | XR_ITS ---
[address] [address] Patient Name: RAQUEL MAURICE MRN: [id number] date: 1965 Sex: F Assigned Patient Location: LAB Current Patient Location: LAB Accession/Order Number: [id number] Exam Date: 11/05/2022 11:20 Report Date: 11/05/2022 13:38 At the request of: SHAIKH SAWYER Procedure: XR shoulder RT min 2V EXAM: XR shoulder RT min 2V HISTORY: Right Shoulder Pain M25.511 COMPARISON: None. TECHNIQUE: 3 views FINDINGS: No acute fracture or dislocation. No significant degenerative changes. Unremarkable soft tissues. XR/XR shoulder RT min 2V IMPRESSION: Unremarkable exam. Electronically authenticated by: JANIA PERSAUD Date: 11/05/2022 13:38
[2022-11-05 11:19] LABS: Basophils Percent Auto 0.5 % (0.2-2.0); Eosinophils Absolute Auto 0.1 10^3/uL (0.0-0.7); Eosinophils Percent Auto 1.3 % (0.9-7.0); Hematocrit 40.4 % (36.0-48.0); Hemoglobin 13.5 g/dL (12.0-16.0); Immature Granulocytes Abs Auto 0.02 10^3/uL (0.00-0.03); Immature Granulocytes Pct Auto 0.2 % (0.0-0.5); Lymphocytes Absolute Auto 1.5 10^3/uL (1.2-3.8); Lymphocytes Percent Auto 18.1 % (20.5-60.0); Mean Corpuscular HGB Conc 33.4 g/dL (29.9-35.2); Mean Corpuscular Hemoglobin 29.9 pg (26.7-34.0); Mean Corpuscular Volume 89.6 fL (81.0-99.0); Mean Platelet Volume 9.6 fL (9.5-13.5); Monocytes Absolute Auto 0.4 10^3/uL (0.3-0.8); Monocytes Percent Auto 4.2 % (1.7-12.0); Neutrophils Absolute Auto 6.3 10^3/uL (1.4-6.5); Neutrophils Percent Auto 75.7 % (43.0-75.0); Platelet Count 229 10^3/uL (150-450); Red Blood Count 4.51 10^6/uL (4.20-5.40); Red Cell Distribution Width 13.9 % (11.0-15.0); White Blood Count 8.3 10^3/uL (4.0-11.0)
[2022-11-05 11:44] LABS: Alanine Aminotransferase 16 U/L (14-59); Albumin Globulin Ratio 0.7; Albumin Level 3.6 g/dL (3.4-5.0); Alkaline Phosphatase 136 U/L (46-116); Anion Gap 14.6; Aspartate Amino Transferase 16 U/L (15-37); BUN Creatinine Ratio 21.5; Bilirubin Total 0.2 mg/dL (0.2-1.0); Calcium 9.7 mg/dL (8.5-10.1); Carbon Dioxide 26.8 mmol/L (21.0-32.0); Chloride 102 mmol/L (98-107); Chol HDL Ratio 3.5; Cholesterol 146 mg/dL (<=200); Estimated GFR (African America 32 (>=60); Estimated GFR (Non-African Ame 27 (>=60); Globulin 5.1 g/dL; Glucose 127 mg/dL (74-106); HDL Cholesterol 42 mg/dL (40-60); Potassium 4.4 mmol/L (3.5-5.1); Sodium 139 mmol/L (136-145); Total Protein 8.7 g/dL (6.4-8.2); Triglycerides 207 mg/dL (<=150); VLDL CHOLESTEROL 41.4 mg/dL
[2022-11-05 15:34] LABS: Estimated Average Glucose 128 mg/dL; Glycohemoglobin A1C 6.1 % (4.5-6.2)
[2022-11-05 16:14] LABS: Creatinine Urine Random 49.35 mg/dL (20.00-300.00)
== END 2022-11-05 10:41 | disposition home or self-care (01) ==
LOC: LAB 10:44
PROVIDERS: PCP Internal Medicine; Visit Provider Internal Medicine
DX: M25.511 Pain in right shoulder (principal); I11.0 Hypertensive heart disease with heart failure; I50.32 Chronic diastolic (congestive) heart failure; E11.69 Type 2 diabetes mellitus with other specified complication; N18.30 Chronic kidney disease, stage 3 unspecified; E66.9 Obesity, unspecified
CPT/HCPCS: 36415; 73030; 80053; 80061; 82570; 83036; 85025

== ENCOUNTER 2022-11-07 11:58 | Outpatient (OUT) | payer OTHER, SELFPAY ==
--- NOTE | 2022-11-07 12:01 | MR_ITS ---
[address] [address] Patient Name: RAQUEL MAURICE MRN: [id number] date: 1965 Sex: F Assigned Patient Location: MRI Current Patient Location: MRI Accession/Order Number: [id number] Exam Date: 11/07/2022 12:28 Report Date: 11/07/2022 15:23 At the request of: AMARA CABRERA Procedure: MR cervical spine wo con EXAMINATION: MR cervical spine wo con HISTORY: Cervical Myelopathy G95.9, Hyper-reflexia R29.2 COMPARISON: No relevant comparison available. TECHNIQUE: A variety of imaging planes and parameters were utilized for visualization of suspected pathology. FINDINGS: CRANIOCERVICAL AREA: Normal foramen magnum with no Chiari malformation. PARASPINAL AREA: Anterior midline mass measuring 1.5 x 2 cm axial image #1, 2.5 cm in CC dimension, sagittal image 8 Enlarged heterogeneous thyroid gland BONES: Normal alignment with no acute fracture or spondylolisthesis CORD: Normal caliber, contour, and signal intensity. CERVICAL DISC LEVELS: C2-C3: Early degenerative disc disease is present without focal protrusion or neural impingement. C3-C4: Early degenerative disc disease is present without focal protrusion or neural impingement. C4-C5: Moderate degenerative disc disease is present without visible neural impingement. C5-C6: Moderate disc space narrowing and disc desiccation. Moderate diffuse disc/osteophyte complex and facet osteoarthropathy. Narrowing of the central canal to 8.2 mm in AP dimension. Moderate bilateral foraminal stenosis C6-C7: Moderate disc space narrowing and disc desiccation. Moderate diffuse disc/osteophyte complex narrowing the central canal to 7.5 mm in AP dimension. Moderate bilateral foraminal stenosis C7-T1:. No significant disc/facet abnormality, spinal stenosis, or foraminal stenosis. MR/MR cervical spine wo con IMPRESSION: Discogenic changes resulting in central and foraminal stenosis at C5-C6 and C6-C7 1.5 x 2.0 x 2.5 cm midline anterior mass below the level of the epiglottis Enlarged heterogeneous thyroid gland Electronically authenticated by: DAMIEN LICEA Date: 11/07/2022 15:23
== END 2022-11-07 11:59 | disposition home or self-care (01) ==
LOC: MRI 11:58
PROVIDERS: PCP Internal Medicine; Visit Provider Psychiatry & Neurology Neurology
DX: R20.2 Paresthesia of skin (principal); R29.2 Abnormal reflex; G95.9 Disease of spinal cord, unspecified
CPT/HCPCS: 72141

== ENCOUNTER 2022-11-15 07:33 | Outpatient (RCR) | payer OTHER, SELFPAY | END 2022-12-14 11:47 | disposition home or self-care (01) | LOC: PT 07:33 | PROVIDERS: PCP Internal Medicine; Visit Provider Internal Medicine | DX: M25.511 Pain in right shoulder (principal) | CPT/HCPCS: 97010; 97014; 97110; 97112; 97113; 97140; 97162 ==

== ENCOUNTER 2022-11-22 13:52 | Outpatient (OUT) | payer OTHER, SELFPAY ==
--- NOTE | 2022-11-22 13:57 | US_ITS ---
The [address] [address] Patient Name: RAQUEL MAURICE MRN: [id number] date: 1965 Sex: F Assigned Patient Location: US Current Patient Location: Accession/Order Number: [id number] Exam Date: 11/22/2022 14:05 Report Date: 11/23/2022 06:44 At the request of: SHAIKH SAWYER Procedure: US thyroid EXAMINATION: US thyroid HISTORY: Neck mass R22.1 COMPARISON: Ultrasound thyroid 09/16/2021 FINDINGS: RIGHT LOBE: Enlarged with heterogeneous echotexture and contains several stable TR 4 nodules, largest is 1.4 cm. Lobe size: 5.5 x 2.1 x 2.2 cm LEFT LOBE: Enlarged with heterogeneous echotexture and contains several stable TR 4 nodules, largest is 2.0 cm. Lobe size: 6.1 x 1.9 x 2.5 cm ISTHMUS: [Heterogeneous echotexture. Superior to the isthmus is a 2.6 x 2.4 x 1.4 cm mass which is increased slightly in size (previously 2.2 x 1.9 x 1.5 cm). Thickness: 3 mm US/US thyroid IMPRESSION: 1. Interval increase in size of the nonspecific mass cephalad to the isthmus. Ultrasound-guided fine-needle aspiration is recommended. 2. Stable appearance of multiple bilateral thyroid nodules favoring multinodular goiter. TR4 (moderately suspicious): If > 1.0 cm Follow-up ultrasound in 1, 2, 3, and 5 years. If > 1.5 cm fine needle aspiration (FNA). Electronically authenticated by: AMARA DAVISON Date: 11/23/2022 06:44
== END 2022-11-22 13:53 | disposition home or self-care (01) ==
LOC: US 13:52
PROVIDERS: PCP Internal Medicine; Visit Provider Internal Medicine
DX: R22.1 Localized swelling, mass and lump, neck (principal); E07.9 Disorder of thyroid, unspecified
CPT/HCPCS: 76536

== ENCOUNTER 2022-12-04 13:40 | Day surgery (SDC) | payer OTHER, SELFPAY ==
--- NOTE | 2022-12-04 13:44 | US_ITS ---
[address] [address] Patient Name: RAQUEL MAURICE MRN: [id number] date: 1965 Sex: F Assigned Patient Location: US Current Patient Location: Accession/Order Number: [id number] Exam Date: 12/04/2022 13:45 Report Date: 12/04/2022 17:00 At the request of: SHAIKH SAWYER Procedure: US biopsy thyroid EXAMINATION: US biopsy thyroid HISTORY: Abnormal ultrasound - mass COMPARISON: Ultrasound thyroid 11/22/2022 TECHNIQUE: After obtaining informed consent, ultrasound-guided fine needle aspiration was performed in the usual sterile manner. FINDINGS: IMAGING: Ultrasound. BIOPSY NEEDLE: 25-gauge single 3 separate passes LOCATION: Oval slightly heterogeneous mass within versus adjacent superior margin of the thyroid isthmus. SPECIMEN TYPE: Cellular tissue. LOCAL ANESTHETIC: Buffered Xylocaine. COMPLICATIONS: None. LABORATORY: Prepared slide smears and washings for cell block evaluation. OTHER: Negative. PATHOLOGY: Pending. An addendum will be added when results are available. US/US biopsy thyroid IMPRESSION: 1. Uneventful ultrasound guided fine needle aspiration (FNA). 2. Pathology results are pending. Electronically authenticated by: AMARA DAVISON Date: 12/04/2022 17:00
[2022-12-04] MEDS: LIDOCAINE HCL 10 ML, SODIUM BICARBONATE 1 MEQ INJ (14:40)
[2022-12-04 15:29] VITALS: BP 133/98; PULSE 94; O2SAT 98
== END 2022-12-04 15:00 | disposition home or self-care (01) ==
LOC: US 13:41
PROVIDERS: Radiology Diagnostic Radiology; PCP Internal Medicine; Visit Provider Internal Medicine
DX: R22.1 Localized swelling, mass and lump, neck (principal)
CPT/HCPCS: 10005; 88173

== ENCOUNTER 2022-12-07 07:50 | Outpatient (OUT) | payer OTHER, SELFPAY ==
--- NOTE | 2022-12-07 07:57 | MR_ITS ---
[place] [id number] Patient Name: RAQUEL MAURICE MRN: [facility]:[id number] date: 1965 Sex: F Assigned Patient Location: MRI Current Patient Location: Accession/Order Number: [id number] Exam Date: 12/07/2022 08:00 Report Date: 12/10/2022 08:07 At the request of: SHAIKH SAWYER Procedure: MR shoulder RT wo con EXAMINATION: MR shoulder RT wo con HISTORY: Right Shoulder Pain M25.511 , chronic; limited range of motion COMPARISON: No relevant comparison available. TECHNIQUE: A variety of imaging planes and parameters were utilized for visualization of suspected pathology. Imaging was performed without or with contrast as indicated by examination type. FINDINGS: ROTATOR CUFF REGION CUFF TENDONS: Marked thinning of the supraspinatus tendon, and no clearly definable tendon attaching to the humeral head. Prominent edema and several screws within lateral humeral head consistent with prior rotator cuff repair. CUFF MUSCLES: Normal appearing muscles. DELTOID: Edema and thinning at its attachment, but no convincing tear. LONG BICEPS TENDON: No appreciable tear/disruption. LABRUM/BICEPS ANCHOR SUPERIOR: No visible labral tear or biceps anchor pathology. ANTERIOR/INFERIOR: No visible tear or attrition. POSTERIOR: No posterior labrum abnormality. CAPSULE No visible capsular laxity or thickening. AC JOINT REGION AC JOINT: Narrowing with prominent cephalad osteophyte at distal end of clavicle. AC LIGAMENTS: Normal acromioclavicular ligament. CC LIGAMENTS: Normal coracoclavicular ligaments. ACROMION: Normal horizontal (Type I) configuration. SUBACROMIAL BURSA: Marked narrowing of the acromial-humeral interval. Trace amount of fluid within the subacromial bursa. HYALINE CARTILAGE: Marked thinning without appreciable subchondral cysts. OTHER BONES: Unremarkable proximal humerus, glenoid, and coracoid. OTHER OBSERVATIONS: Negative. MR/MR shoulder RT wo con IMPRESSION: 1. Prior superior rotator cuff repair. 2. Marked thinning of the superior rotator cuff and suspected disruption from prior humeral head point of attachment/repair. 3. Prominent edema within lateral aspect of humeral head and adjacent soft tissues; sequela of recent surgery versus secondary to high-grade strain versus tear. 4. Moderate degenerative changes of the acromioclavicular joint predominantly projecting cephalad. Electronically authenticated by: AMARA DAVISON Date: 12/10/2022 08:07
== END 2022-12-07 07:51 | disposition home or self-care (01) ==
LOC: MRI 07:50
PROVIDERS: PCP Internal Medicine; Visit Provider Internal Medicine
DX: M25.511 Pain in right shoulder (principal)
CPT/HCPCS: 73221

== ENCOUNTER 2022-12-13 23:57 | Emergency (ER) | payer OTHER, SELFPAY ==
[2022-12-14] VITALS (19 sets, daily range): BP systolic 101–115; BP diastolic 63–70; PULSE 70–83; RESP 12–23; TEMP 36.6; O2SAT 93–98; BMI 36.0
--- NOTE | 2022-12-14 00:49 | ECG_ITS ---
[facility] Test Date: 2022-12-14 Pat Name: RAQUEL MAURICE Department: Room: - Gender: Female Clinical Social Worker: : 1965 Requested By: SHAIKH SAWYER Order Number: [id number] Reading MD: MARIA FERNANDA MAST Measurements Intervals [place] Rate: 75 P: 55 SD: 184 QRS: 30 QRSD: 90 T: 38 QT: 398 QTc: 427 Interpretive Statements 1100 Sinus rhythm [address] depression, unchanged from previous tracing 9130 borderline ECG Electronically Signed On 12-14-2022 7:01:31 EDT by MARIA FERNANDA MAST
--- NOTE | 2022-12-14 00:51 | ED_ITS ---
HPI - General Adult General Chief complaint: Weakness Stated complaint: general weakness Time Seen by Provider: 12/14/22 00:09 Mode of arrival: walk-in History of Present Illness HPI narrative: This 57-year-old female with a history of hypertension, type 2 diabetes and cardiomyopathy presents for evaluation of generalized weakness with mild dizziness and nausea. She states she has the feeling that things are closing in on her like she might pass out. She had similar symptoms in October and was told that she was dehydrated at that time. 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 She states she is having a hard time getting adjusted to slot shift manager. She denies any chest pain or shortness of breath. She has not passed out. She is mildly nauseated. She denies any vomiting or diarrhea. She has not had a fever or cough. She recently had her Lasix dose decreased by her chronometer repairer. Related Data Home Medications Medication Instructions Recorded Confirmed aspirin 81 mg capsule 81 mg PO DAILY 11/27/22 12/04/22 atorvastatin 20 mg tablet 20 mg PO DAILY 11/27/22 12/04/22 bupropion HCl 300 mg 24 hr tablet, 300 mg PO DAILY 11/27/22 12/04/22 extended release buspirone 15 mg tablet 15 mg PO BID 11/27/22 12/04/22 cholecalciferol (vitamin D3) 1,250 50,000 unit PO QWEEK 11/27/22 12/04/22 mcg (50,000 unit) capsule dapagliflozin propanediol 10 mg 10 mg PO DAILY 11/27/22 12/04/22 tablet (Farxiga) diltiazem HCl 120 mg 120 mg PO DAILY 11/27/22 12/04/22 capsule,extended release 24 hr (Cartia XT) furosemide 80 mg tablet 80 mg PO DAILY 11/27/22 12/04/22 glimepiride 4 mg tablet 4 mg PO BID 11/27/22 12/04/22 lisinopril 2.5 mg tablet 2.5 mg PO DAILY 11/27/22 12/04/22 magnesium oxide 400 mg PO DAILY 11/27/22 12/04/22 omeprazole magnesium 20 mg 20 mg PO DAILY 11/27/22 12/04/22 capsule,delayed release pramipexole 1 mg tablet 1 mg PO DAILY 11/27/22 12/04/22 pregabalin 100 mg capsule 100 mg PO TID 11/27/22 12/04/22 semaglutide 0.25 mg or 0.5 mg (2 0.25 mg subcut QWEEK 11/27/22 12/04/22 mg/3 mL) subcutaneous pen injector (Ozempic) Allergies Allergy/AdvReac Type Severity Reaction Status Date / Time No Known Drug Allergies Allergy Verified 12/14/22 00:22 Review of Systems ROS Status of ROS 10 or more systems reviewed and unremarkable except as noted in history and below [facility] Medical History (Updated 12/14/22 @ 02:34 by Lanny Steel MD) Surgical History (Updated 11/27/22 @ 14:49 by Joy Chavarria) Social History Smoking status: Former smoker Exam Narrative Exam Narrative: Nurses note and vital signs reviewed and patient is borderline hypoxic and 93 percent on room air. She has a low normal blood pressure 115/70. General: The patient appears well and in no apparent distress. Patient is resting comfortably on cart. Skin: Warm, dry, no pallor noted. There is no rash noted. Head: Normocephalic, atraumatic Eye: Normal conjunctiva, no drainage, EOMI. PERRL Ears, Nose, Mouth, and Throat: oral mucosa is dry, no oral lesions noted Cardiovascular: Regular Rate and Rhythm S1S2 with harsh holosystolic murmur, no gallops or S3 noted Respiratory: Patient is in no distress, no accessory muscle use, lungs are clear to auscultation, no wheezing, rales or rhonchi Back: non-tender, no CVA tenderness bilaterally to percussion. GI: Normal bowel sounds, no tenderness to palpation, no masses appreciated. No rebound, guarding, or rigidity noted. Musculoskeletal: The patient has no evidence of calf tenderness, no pitting edema, symmetrical pulses noted bilaterally Neurological: A&O x4, normal speech Psychiatric: Cooperative Constitutional Vital Signs, click to edit/add: Last Vital Signs Temp 98 F 12/14/22 00:14 Pulse 78 12/14/22 00:14 Resp 16 12/14/22 00:14 BP 115/70 12/14/22 00:14 Pulse Ox 93 L 12/14/22 00:14 O2 Del Method Room Air 12/14/22 00:14 Course Vital Signs Vital signs: Vital Signs Temperature 98 F 12/14/22 00:14 Pulse Rate 78 12/14/22 00:14 Respiratory Rate 16 12/14/22 00:14 Blood Pressure 115/70 12/14/22 00:14 Pulse Oximetry 93 L 12/14/22 00:14 Oxygen Delivery Method Room Air 12/14/22 00:14 Temperature 98 F 12/14/22 00:14 Pulse Rate 78 12/14/22 00:14 Respiratory Rate 16 12/14/22 00:14 Blood Pressure 115/70 12/14/22 00:14 Pulse Oximetry 93 L 12/14/22 00:14 Oxygen Delivery Method Room Air 12/14/22 00:14 Medical Decision Making MDM Narrative Medical decision making narrative: This 57-year-old female with a history of diabetes, hypertension, stage III kidney disease and a heart murmur presents for evaluation of dizziness and nausea. 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 She left her job and came to the emergency department for evaluation. She denied any chest pain but stated she felt like she was going to pass out. She has been eating and drinking normally. She was admitted here last month for severe dehydration and had a creatinine greater than 3 at that time. On arrival an EKG was done that was sinus rhythm at 75 beats for minute with nonspecific ST changes. An IV was placed and she was medicated with Zofran and IV fluids. Routine labs are ordered and are reviewed. She has a normal troponin. She has a normal white count. Her hemoglobin is 10.5 today which is considerably lower than it has been most recently when it was 12- 13. She had been extremely dehydrated when her creatinine was elevated and her hemoglobin was higher a be a reflection of dehydration. She denies that she is having any abdominal pain dark tarry stools and she has had several colonoscopies. She is being worked up for chronic neck and back pain and has an MRI of her lumbar spine later today. I discussed her labs with her and encouraged her to follow up closely with her PCP to monitor her hemoglobin. She is feeling better after her IVF and her vital signs are stable for discharge. Lab Data Labs: Lab Results 12/14/22 Range/Units 01:00 WBC 8.1 (4.0-11.0) 10^3/uL RBC 3.52 L (4.20-5.40) 10^6/uL Hgb 10.5 L (12.0-16.0) g/dL Hct 32.0 L (36.0-48.0) % MCV 90.9 (81.0-99.0) fL MCH 29.8 (26.7-34.0) pg MCHC 32.8 (29.9-35.2) g/dL RDW 14.6 (11.0-15.0) % Plt Count 193 (150-450) 10^3/uL MPV 9.9 (9.5-13.5) fL Neut % (Auto) 75.0 (43.0-75.0) % Lymph % (Auto) 13.9 L (20.5-60.0) % Sandoval % (Auto) 9.3 (1.7-12.0) % Eos % (Auto) 0.9 (0.9-7.0) % Baso % (Auto) 0.5 (0.2-2.0) % Neut # (Auto) 6.1 (1.4-6.5) 10^3/uL Lymph # (Auto) 1.1 L (1.2-3.8) 10^3/uL Sandoval # (Auto) 0.8 (0.3-0.8) 10^3/uL Eos # (Auto) 0.1 (0.0-0.7) 10^3/uL Baso # (Auto) 0.0 (0.0-0.1) 10^3/uL Abs Immat Gran (auto) 0.03 (0.00-0.03) 10^3/uL Imm/Tot Granulo (auto) 0.4 (0.0-0.5) % Sodium 136 (136-145) mmol/L Potassium 3.5 (3.5-5.1) mmol/L Chloride 103 (98-107) mmol/L Carbon Dioxide 26.4 (21.0-32.0) mmol/L Anion Gap 10.1 BUN 27.0 H (7.0-18.0) mg/dL Creatinine 1.35 H (0.55-1.02) mg/dL Est GFR ( Amer) 49 L (>=60) Est GFR (Non-Af Amer) 40 L (>=60) BUN/Creatinine Ratio 20.0 Glucose 150 H (74-106) mg/dL Lactate 0.7 (0.4-2.0) mmol/L Calcium 9.0 (8.5-10.1) mg/dL Magnesium 2.0 (1.8-2.4) mg/dL Total Bilirubin 0.3 (0.2-1.0) mg/dL AST 25 (15-37) U/L ALT 35 (14-59) U/L Alkaline Phosphatase 144 H (46-116) U/L Troponin I High Sens 8.7 (4.0-51.3) pg/mL NT-Pro-B Natriuret Pep 268.0 (<=900.0) pg/mL Total Protein 8.0 (6.4-8.2) g/dL Albumin 3.0 L (3.4-5.0) g/dL Globulin 5.0 g/dL Albumin/Globulin Ratio 0.6 Lipase 84.0 (73.0-393.0) U/L TSH 0.341 L (0.358-3.740) uIU/mL ECG Data Attestation: I personally reviewed and interpreted this ECG as follows: (Sinus rhythm at 75 beats for minute, normal axis, normal intervals, minimal ST depression in lead 2, 3 and aVF, no acute ST segment elevation or T-wave inversion) Discharge Plan Discharge Chief Complaint: Weakness Clinical Impression: Dizziness, nonspecific, Anemia, Nausea Patient Disposition: Home, Self-Care Time of Disposition Decision: 02:36 Condition: Good Prescriptions / Home Meds: No Action aspirin 81 mg capsule 81 mg PO DAILY atorvastatin 20 mg tablet 20 mg PO DAILY bupropion HCl 300 mg tablet extended release 24 hr 300 mg PO DAILY buspirone 15 mg tablet 15 mg PO BID cholecalciferol (vitamin D3) 1,250 mcg (50,000 unit) capsule 50,000 unit PO QWEEK Patient Comments: sundays Farxiga 10 mg tablet 10 mg PO DAILY furosemide 80 mg tablet 80 mg PO DAILY glimepiride 4 mg tablet 4 mg PO BID lisinopril 2.5 mg tablet 2.5 mg PO DAILY magnesium oxide 400 mg magnesium tablet 400 mg PO DAILY omeprazole magnesium 20 mg capsule,delayed release(DR/EC) 20 mg PO DAILY pramipexole 1 mg tablet 1 mg PO DAILY pregabalin 100 mg capsule 100 mg PO TID Ozempic 0.25 mg or 0.5 mg (2 mg/3 mL) pen injector 0.25 mg subcut QWEEK Patient Comments: sundays Rx Instructions: for 4 weeks diltiazem HCl [Cartia XT] 120 mg capsule,extended release 24hr 120 mg PO DAILY Instructions: Lightheadedness (ED), Anemia (ED) Stand Alone Forms: Portal Instructions Referrals: Shaikh Villalta MD [Primary Care Provider] - 1 week
[2022-12-14] MEDS: ONDANSETRON PF 4 MG/2 ML VIAL IV (01:08)
[2022-12-14] MEDS: 0.9 % SODIUM CHLORIDE 1,000 ML 999 ML IV (01:08)
[2022-12-14 01:22] LABS: Basophils Percent Auto 0.5 % (0.2-2.0); Eosinophils Absolute Auto 0.1 10^3/uL (0.0-0.7); Eosinophils Percent Auto 0.9 % (0.9-7.0); Hemoglobin 10.5 g/dL (12.0-16.0); Immature Granulocytes Abs Auto 0.03 10^3/uL (0.00-0.03); Immature Granulocytes Pct Auto 0.4 % (0.0-0.5); Lymphocytes Absolute Auto 1.1 10^3/uL (1.2-3.8); Lymphocytes Percent Auto 13.9 % (20.5-60.0); Mean Corpuscular HGB Conc 32.8 g/dL (29.9-35.2); Mean Corpuscular Hemoglobin 29.8 pg (26.7-34.0); Mean Corpuscular Volume 90.9 fL (81.0-99.0); Mean Platelet Volume 9.9 fL (9.5-13.5); Monocytes Absolute Auto 0.8 10^3/uL (0.3-0.8); Monocytes Percent Auto 9.3 % (1.7-12.0); Neutrophils Absolute Auto 6.1 10^3/uL (1.4-6.5); Platelet Count 193 10^3/uL (150-450); Red Blood Count 3.52 10^6/uL (4.20-5.40); Red Cell Distribution Width 14.6 % (11.0-15.0); White Blood Count 8.1 10^3/uL (4.0-11.0)
[2022-12-14 01:37] LABS: Lactate/Lactic Acid 0.7 mmol/L (0.4-2.0)
[2022-12-14 01:43] LABS: Alanine Aminotransferase 35 U/L (14-59); Albumin Globulin Ratio 0.6; Alkaline Phosphatase 144 U/L (46-116); Anion Gap 10.1; Aspartate Amino Transferase 25 U/L (15-37); Bilirubin Total 0.3 mg/dL (0.2-1.0); Carbon Dioxide 26.4 mmol/L (21.0-32.0); Chloride 103 mmol/L (98-107); Estimated GFR (African America 49 (>=60); Estimated GFR (Non-African Ame 40 (>=60); Glucose 150 mg/dL (74-106); Potassium 3.5 mmol/L (3.5-5.1); Sodium 136 mmol/L (136-145); Thyroid Stimulating Hormone 0.341 uIU/mL (0.358-3.740); Troponin I High Sensitivity 8.7 pg/mL (4.0-51.3)
--- NOTE | 2022-12-14 02:19 | XR_ITS ---
The [address] [address] Patient Name: RAQUEL MAURICE MRN: [id number] date: 1965 Sex: F Assigned Patient Location: ER Current Patient Location: Accession/Order Number: [id number] Exam Date: 12/14/2022 02:27 Report Date: 12/14/2022 03:31 At the request of: DANI MARKER Procedure: XR chest 1V EXAM: XR chest 1V HISTORY: weakness COMPARISON: 11/20/2021. TECHNIQUE: AP FINDINGS: Cardiomediastinal silhouette is within normal limits. Lung rouse show no evidence for consolidation, infiltrate, pneumothorax or pleural effusion. There is pulmonary vascular congestion on the right. Osseous structures are intact without evidence for an acute osseous abnormality. The diaphragm is intact. XR/XR chest 1V IMPRESSION: Mild pulmonary vascular congestion without evidence for an acute process. Electronically authenticated by: BENY CAMPA Date: 12/14/2022 03:31
== END 2022-12-14 02:50 | disposition home or self-care (01) ==
PROVIDERS: Emergency Provider Emergency Medicine; PCP Internal Medicine
DX: R42 Dizziness and giddiness (principal); D64.9 Anemia, unspecified; R11.2 Nausea with vomiting, unspecified; I42.9 Cardiomyopathy, unspecified; I12.9 Hypertensive chronic kidney disease with stage 1 through stage 4 chronic kidney disease, or unspecified chronic kidney disease; N18.30 Chronic kidney disease, stage 3 unspecified; E11.22 Type 2 diabetes mellitus with diabetic chronic kidney disease; Z79.82 Long term (current) use of aspirin; Z79.899 Other long term (current) drug therapy; Z87.891 Personal history of nicotine dependence
CPT/HCPCS: 36415; 71045; 80053; 81003; 83605; 83690; 83735; 83880; 84443; 84484; 85025; 93005; 96374; 99285

== ENCOUNTER 2022-12-15 07:18 | Outpatient (OUT) | payer OTHER, SELFPAY ==
[2022-12-15 09:50] LABS: Free T3 3.03 pg/mL (2.18-3.98); Thyroid Stimulating Hormone 0.677 uIU/mL (0.358-3.740)
[2022-12-16 07:09] LABS: Thyroid Peroxidase (TPO) Ab 10 IU/mL (0-34)
[2022-12-17 16:09] LABS: Thyroglobulin Antibody <1.0 IU/mL (0.0-0.9)
== END 2022-12-15 07:19 | disposition home or self-care (01) ==
LOC: LAB 07:20
PROVIDERS: PCP Internal Medicine; Visit Provider Internal Medicine
DX: E04.1 Nontoxic single thyroid nodule (principal)
CPT/HCPCS: 36415; 84436; 84439; 84443; 84481; 86376; 86800

== ENCOUNTER 2022-12-18 13:27 | Outpatient (OUT) | payer OTHER, SELFPAY ==
--- NOTE | 2022-12-18 13:32 | MR_ITS ---
[place] [id number] Patient Name: RAQUEL MAURICE MRN: [id number] date: 1965 Sex: F Assigned Patient Location: MRI Current Patient Location: MRI Accession/Order Number: [id number] Exam Date: 12/18/2022 13:50 Report Date: 12/18/2022 15:13 At the request of: JOAN ARMENTA Procedure: MR lumbar spine wo con TITLE: MR lumbar spine wo con COMPARISON: None. CLINICAL HISTORY: Radiculopathy lumbar region M54.16. Chronic lower back and lower extremity pain TECHNIQUE: Sagittal T1, sagittal T2 FSE, sagittal STIR, and axial T2 FSE. FINDINGS: Alignment is normal. There is no listhesis nor vertebral body height loss. The conus medullaris terminates at L1-2 and appears normal. The visualized adjacent soft tissues appear unremarkable. There is multilevel disc desiccation sparing L2-3 and L5-S1. Mild disc bulges at the thoracolumbar junction T12-L1: Normal disc space. No stenosis. L1-L2:Mild disc bulge and facet hypertrophy. No stenosis. L2-3: Normal disc space. No stenosis. L3-4: Disc desiccation. Small annular tear with a left lateral disc protrusion. Facet hypertrophy. Mild central canal and moderate foraminal narrowing L4-5: Diffuse disc bulge with lateral extension. Bilateral facet hypertrophy. Moderate central canal and foraminal stenoses L5-S1: Small central disc protrusion. Bilateral facet hypertrophy. No significant stenosis MR/MR lumbar spine wo con IMPRESSION: MULTILEVEL DEGENERATIVE CHANGES OF THE LOWER THORACIC AND LUMBAR SPINE RELATIVE SPARING OF THE L2-3 AND L5-S1 DISC SPACES. MODERATE MULTIFACTORIAL CENTRAL CANAL AND FORAMINAL NARROWING L4-5 ANNULAR TEAR WITH FORAMINAL DISC PROTRUSION L5-3-4 FACET HYPERTROPHY LOWER 3 LUMBAR LEVELS. Electronically authenticated by: KAHLIL MUSTAFA Date: 12/18/2022 15:13
== END 2022-12-18 13:28 | disposition home or self-care (01) ==
LOC: MRI 13:27
PROVIDERS: PCP Internal Medicine; Visit Provider Physician Assistant Medical
DX: M54.16 Radiculopathy, lumbar region (principal)
CPT/HCPCS: 72148

== ENCOUNTER 2022-12-27 12:46 | Outpatient (RCR) | payer OTHER, SELFPAY | END 2022-12-28 14:00 | disposition home or self-care (01) | LOC: PT 12:46 | PROVIDERS: PCP Internal Medicine; Visit Provider Physician Assistant Medical | DX: R20.2 Paresthesia of skin (principal); R29.3 Abnormal posture | CPT/HCPCS: 97110; 97161 ==

== ENCOUNTER 2023-05-27 12:09 | Outpatient (OUT) | payer OTHER, SELFPAY ==
--- NOTE | 2023-05-27 12:18 | MM_ITS ---
Patient Name: RAQUEL MAURICE MR#: [id number] : 1965 Exam Date: 05/27/2023 Ordering Doctor: Shaikh Silvino Villalta . RADIOLOGY REPORT PROCEDURE: MM TOMOSYNTHESIS SCREENING BI COMPARISON: MG MAMM SCREEN 3D AARON CAD, 11/08/2020. MG MAMM SCREEN 3D AARON CAD, 02/14/2022. INDICATIONS: screening Calculator Name NCI Breast Cancer Risk Assessment Tool 5 Year Breast Cancer Risk 1.00% Lifetime Breast Cancer Risk 6.50% Personal Breast Cancer No Personal Ovarian Cancer No Treatments None Family Cancers Mother with unknown cancer at age 72. LOCATION: [facility] BREAST COMPOSITION: Scattered areas fibroglandular density. FINDINGS: DIAGNOSTIC CATEGORY 1--NEGATIVE. NO CHANGE FROM COMPARISON ASSESSMENT. RIGHT BREAST: No significant suspicious finding. LEFT BREAST: No significant suspicious finding. RECOMMENDATIONS: ROUTINE MAMMOGRAM AND CLINICAL EVALUATION IN 12 MONTHS. PLEASE NOTE: A NORMAL MAMMOGRAM DOES NOT EXCLUDE THE POSSIBILITY OF BREAST CANCER. A CLINICALLY SUSPICIOUS PALPABLE LUMP SHOULD BE BIOPSIED. Dictated by: Osman Dunn MD on 05/27/2023 at 13:46 Approved by: Osman Dunn MD on 05/27/2023 at 13:48
--- NOTE | 2023-05-27 12:19 | XR_ITS ---
The [address] [address] Patient Name: RAQUEL MAURICE MRN: [id number] date: 1965 Sex: F Assigned Patient Location: MAMMO Current Patient Location: Accession/Order Number: [id number] Exam Date: 05/27/2023 12:28 Report Date: 05/28/2023 10:43 At the request of: SHAIKH SAWYER Procedure: XR shoulder LT min 2V PROCEDURE: XR shoulder LT min 2V HISTORY: acute pain of left shoulder M25.512 COMPARISON: None. FINDINGS: BONES:No fracture, dislocation, bone lesion. Mild degenerative changes acromioclavicular joint. Small degenerative osteophyte along inferior margin of glenoid. SOFT TISSUES:No visible soft tissue swelling. EFFUSION:None visible. OTHER: Negative. XR/XR shoulder LT min 2V IMPRESSION: 1. Mild degenerative changes. 2. No acute bone abnormality. Electronically authenticated by: AMARA DAVISON Date: 05/28/2023 10:43
--- NOTE | 2023-05-27 12:20 | XR_ITS ---
[address] [address] Patient Name: RAQUEL MAURICE MRN: [id number] date: 1965 Sex: F Assigned Patient Location: [facility] Current Patient Location: [facility] Accession/Order Number: [id number] Exam Date: 05/27/2023 12:28 Report Date: 05/27/2023 15:27 At the request of: SHAIKH SAWYER Procedure: XR knee AARON 3V EXAMINATION: XR knee AARON 3V HISTORY: chronic pain of both knees M25.561, M25.562, G89.29 COMPARISON: 06/25/2023 FINDINGS: RIGHT FINDINGS: BONES: No acute fracture or dislocation. Moderate tricompartmental osteoarthropathy with moderate narrowing of medial joint space with marginal osteophyte formation SOFT TISSUES: Negative. No visible soft tissue swelling. OTHER: Negative. LEFT FINDINGS: BONES: No acute fracture or dislocation. Moderate to severe tricompartmental osteoarthropathy with [id number] articulation of the medial compartment. Marginal osteophyte formation SOFT TISSUES: Negative. No visible soft tissue swelling. OTHER: Negative. XR/XR knee AARON 3V IMPRESSION: RIGHT CONCLUSION: Moderate osteoarthritis LEFT CONCLUSION: Moderate to severe osteoarthritis Electronically authenticated by: DAMIEN LICEA Date: 05/27/2023 15:27
--- OUTSIDE RECORDS SUMMARY | 2023-05-27 12:20 | XMS_ITS | CCD ---
Author Name Unknown Address [id number] [place] [address] Organization [facility] Care Team Providers Care Inspectors And Regulatory Officers Name Role Phone Lisbeth Grace Primary Care Physician Truman, Margarita Unavailable PROVIDER, UNKNOWN Attending Unavailable PROVIDER, UNKNOWN Admitting Unavailable ERIC CONTE Attending Unavailable KAVONALY, RAGHEBernie Admitting Unavailable SELF, REFERRED Referring Unavailable LISBETH GRACE Primary Care Unavailable Isaias Gomez Unavailable Giovana Crum Unavailable TIFFANI, DR CAMPA Admitting Unavailable MARISELUKARBEL, DR CAMPA Attending Unavailable MARISELUKARBNAZARIO, DR CAMPA Consulting Unavailable FAWWAD, TILLMAN H Primary Care Unavailable ZIEBER, DR AMARA Segundo Consulting Unavailable FAWWAD, TILLMAN H Admitting Unavailable FAWWAD, TILLMAN H Attending Unavailable FAWWAD, TILLMAN H Primary Care Unavailable FAWWAD, TILLMAN H Consulting Unavailable TRUMAN, MARGARITA Attending Unavailable TRUMAN, MARGARITA Consulting Unavailable TRUMAN, MARGARITA Admitting Unavailable FAWWAD, TILLMAN H Primary Care Unavailable MISC, DR ASHRAF Admitting Unavailable VINAYAK, DR DAMIEN Lowry Consulting Unavailable MISC, DR ASHRAF Attending Unavailable FAWWAD, TILLMAN H Primary Care Unavailable MISC, DR ASHRAF Consulting Unavailable ZIEBER, DR AMARA Segundo Consulting Unavailable TRUMAN, MARGARITA Admitting Unavailable TRUMAN, MARGARITA Attending Unavailable TRUMAN, MARGARITA Consulting Unavailable FAWWAD, TILLMAN H Primary Care Unavailable FAWWAD, TILLMAN H Admitting Unavailable FAWWAD, TILLMAN H Attending Unavailable FAWWAD, TILLMAN H Primary Care Unavailable DR AMARA DAVISON Consulting Unavailable JUAN CARLOS ., BRITTNEY Admitting Unavailable [facility] Primary Care Unavailable JUAN CARLOS Tripathi, BRITTNEY Attending Unavailable JUAN CARLOS ., BRITTNEY Consulting Unavailable NILL ., DR GAYLE Admitting Unavailable NILL ., DR GAYLE Attending Unavailable NILL ., DR GAYLE Consulting Unavailable [facility] Primary Care Unavailable MAJO SRIVASTAVA Consulting Unavailable Nalini LANDERS Attending Unavailable Nalini LANDERS Attending Unavailable JANIA GUTIERREZ Attending Unavailable [facility] Referring Unavailable [facility] Primary Care Unavailable AMBAR, TILLMAN Attending Unavailable KATHERYN NIXON Attending Unavailable TIFFANI, KATHERYN Attending Unavailable KATHERYN NIXON Attending Unavailable Allergies Allergy Classification Reported Allergen(s) Allergy Type Date of Onset Reaction(s) Facility (1 source) No Known Medication Allergies; Translations: [No Known Medication Allergies] Propensity to adverse reactions (disorder) [facility] Repository Medications Current Medications Medication Drug Class(es) Dates Sig (Normalized) Sig (Original) acetaminophen 650 mg oral tablet (3 sources) take 2 tablets by mouth every eight hours as needed Acetaminophen ER 650 MG 2 tablets as needed Orally every 8 hrs Active take 2 tablets by mo uth every eight hours Acetaminophen ER 650 MG 2 tablets as nee ded Orally every 8 hrs Active apixaban 5 mg oral tablet (2 sources) Factor Xa Inhibitor take 1 tablet by mouth every twelve hours Eliquis 5 MG 1 tab(s) Orally bid Active aspirin 81 mg delayed release oral tablet (7 sources) Platelet Aggregation Inhibitor, Nonsteroidal Anti-inflammatory Drug Start: 05-04-2020 take 1 tablet by mouth once daily aspirin 81 mg Oral EC Tab 81 mg = 1 tab(s), Oral, Daily, Refills(s) 0 Start Date: 05/04/20 Status: Ordered take 1 tablet by mouth once reinaldo y Aspirin 81 81 MG 1 tablet Orally Once a day Active atorvastatin 20 mg oral tablet (7 sources) HMG-CoA Reductase Inhibitor Start: 05-04-2020 take 1 tablet by mouth once daily atorvastatin 20 mg Tab 20 mg = 1 tab(s), Oral, Daily, Refills(s) 0 Start Date: 05/04/20 Status: Ordered calcium (as carbonate)-vitamin D 600 mg-800 intl units oral tablet (2 sources) Start: 05-04-2020 take 1 tablet by mouth twice daily calcium (as carbonate)-vitamin D 600 mg-800 intl units oral tablet 1 tab(s), Oral, BID Start Date: 05/04/20 Status: Ordered carvedilol 3.125 mg oral tablet (4 sources) alpha-Adrenergic John, beta-Adrenergic John take 1 tablet by mouth every twelve hours Carvedilol 3.125 MG 1 tablet with food Orally Twice a day Active Carvedilol Activ e CHROMIUM PICOLINATE (5 sources) take 1 tablet by mouth once daily Chromium Picolinate 1000 MCG 1 tablet Orally Once a day Active dapagliflozin 5 mg oral tablet (5 sources) Sodium-Glucose Cotransporter 2 Inhibitor Start: 09-27-19 take 2 tablets by mouth once daily Farxiga 5 mg oral tablet 10 mg = 2 tab(s), Oral, Daily, Refills(s) 0 Start Date: 09/26/21 Status: Ordered take 1 tablet by bryan th every twenty-four hours Farxiga 10 MG 1 tablet Orally Once a day Active 24 hr dilTIAZem hydrochloride 120 mg extended release oral capsule (5 sources) Calcium Channel John take 1 capsule by mouth once daily dilTIAZem HCl ER Beads 120 MG 1 capsule Orally Once a day Active take 1 capsule by mouth once monica ly dilTIAZem HCl ER Beads 360 MG 1 capsule Orally Once a day Not-Taking diltiazem 24 hour extended release (2 sources) Start: 09-26-2021 take 1 capsule by mouth once daily diltiazem 24 hour extended release = 1 cap(s), Oral, Daily, Refills(s) 0 Start Date: 09/26/21 Status: Ordered ergocalciferol 1.25 mg oral capsule (5 sources) Provitamin D2 Compound Start: 08-08-2021 take 1 capsule by mouth every week Ergocalciferol 1.25 MG (13218 UT) 1 capsule Orally Q week for 90 day(s) Jul, Active escitalopram 20 mg oral tablet (7 sources) Serotonin Reuptake Inhibitor Start: 09-26-2021 take 1 tablet by mouth once daily Lexapro 20 mg Tab 20 mg = 1 tab(s), Oral, Daily, Refills(s) 0 Start Date: 09/26/21 Status: Ordered ferrous sulfate (5 sources) take 1 tablet by mouth every twenty-four hours Ferrous Sulfate 325 (65 Fe) MG 1 tablet Orally Once a day Active take 1 tablet by mouth once reinaldo y Ferrous Sulfate 325 (65 Fe) MG 1 tablet Orally Once a day Active furosemide 40 mg oral tablet (7 sources) Loop Diuretic Start: 05-04-2020 take 2 tablets by mouth once daily Lasix 40 mg Tab 80 mg = 2 tab(s), Oral, Daily, Refills(s) 0 Start Date: 05/04/20 Status: Ordered glimepiride 4 mg oral tablet (7 sources) Sulfonylurea Start: 05-04-2020 take 2 tablets by mouth once daily glimepiride 4 mg Tab 8 mg = 2 tab(s), Oral, Daily, Refills(s) 0 Start Date: 05/04/20 Status: Ordered take 1 tablet by bryan th every twelve hours Glimepiride 4 MG 1 tab(s) Orally bid Act beronica hydrOXYzine hydrochloride 25 mg oral tablet (5 sources) Antihistamine Start: 10-10-2021 take 1 tablet by mouth four times daily as needed for anxiety hydrOXYzine hydrochloride 25 mg Tab 25 mg = 1 tab(s), Oral, QID, PRN as needed for anxiety, Refills(s) 0 Start Date: 10/10/21 Status: Ordered take 1 tablet by bryan th every twenty-four hours hydrOXYzine HCl 25 MG 1 tablet at bedtim e as needed Orally Once a day Active insulin glargine 100 unt/ml injectable solution (7 sources) Insulin Analog Start: 05-04-2020 inject 40 [IU] by subcutaneous injection once daily at bedtime Lantus 100 units/mL Injection-Insulin 40 unit(s), SubCutaneous, Once a day (at bedtime), Refills(s) 0 Start Date: 05/04/20 Status: Ordered Lantus SoloStar 100 UNIT/ML as directed Subcutaneous 35 UNITS ONCE A DAY Active lisinopril 2.5 mg oral tablet (7 sources) Angiotensin Converting Enzyme Inhibitor Start: 08-08-2021 take 1 tablet by mouth once daily lisinopril 2.5 mg Tab 2.5 mg = 1 tab(s), Oral, Daily, Refills(s) 0 Start Date: 10/10/21 Status: Ordered Magnesium (5 sources) Magnesium 400 MG as directed Orally Once a day Active magnesium oxide 400 mg oral tablet (2 sources) Start: 09-26-2021 take 1 tablet by mouth once daily magnesium oxide 400 mg Tab 400 mg = 1 tab(s), Oral, Daily, Refills(s) 0 Start Date: 09/26/21 Status: Ordered 24 hr metoprolol succinate 200 mg extended release oral tablet (8 sources) beta-Adrenergic John Start: 09-26-2021 metoprolol 200 mg ER Tab 200 mg = 1 tab(s), Oral, Daily, along with 100mg tab, Refills(s) 0 Start Date: 09/26/21 Status: Ordered Start: 05-04-2020 take 1 tablet by bryan th once daily Metoprolol succinate 100 mg ER Tablet = 1 tab(s), Oral, Daily, Refills(s) 0 Start Date: 05/04/20 Status: Ordered omeprazole 20 mg delayed release oral capsule (7 sources) Proton Pump Inhibitor Start: 10-10-2021 take 1 capsule by mouth once daily omeprazole 20 mg Cap-DR 20 mg = 1 cap(s), Oral, Daily, Refills(s) 0 Start Date: 10/10/21 Status: Ordered pramipexole dihydrochloride 1 mg oral tablet (7 sources) Nonergot Dopamine Agonist Start: 05-04-2020 take 1 tablet by mouth at bedtime pramipexole 1 mg Tab 1 mg = 1 tab(s), Oral, Bedtime, Refills(s) 0 Start Date: 05/04/20 Status: Ordered + Complete Multi 18-0.8 & 290 MG (2 sources) + Complete Multi 18-0.8 & 290 MG as directed Orally Active ProFe 180 mg oral capsule (2 sources) Start: 09-26-2021 take 1 capsule by mouth once daily ProFe 180 mg oral capsule 180 mg = 1 cap(s), Oral, Daily, Refills(s) 0 Start Date: 09/26/21 Status: Ordered 0.25 mg, 0.5 mg dose 1.5 ml semaglutide 1.34 mg/ml pen injector (5 sources) Ozempic (0.25 or 0.5 MG/DOSE) 2 MG/1.5ML as directed Subcutaneous Active Rybelsus 7 MG 1 tablet at least 30 minutes before first food, beverage or other oral medicine of the day Orally Once a day Active Problems Active Problems Problem Classification Problem Date Documented Date Episodic/Chronic Anxiety disorders (4 sources) Mixed anxiety and depressive disorder; Translations: [Other specified anxiety disorders] Onset: 1 09-26-2021 Chronic Chronic kidney disease (14 sources) Chronic kidney disease stage 4; Translations: [Chronic kidney disease, stage 4 (severe)] Chronic Congestive heart failure; nonhypertensive (3 sources) Diastolic heart failure; Translations: [Unspecified diastolic (congestive) heart failure] Onset: 2 09-26-2021 Chronic Deficiency and other anemia (5 sources) Anemia of renal disease; Translations: [Anemia in chronic kidney disease] Chronic Diabetes mellitus with complications (8 sources) Disorder of kidney due to diabetes mellitus; Translations: [Type 2 diabetes mellitus with diabetic chronic kidney disease] Onset: 2 Resolved: 2 Chronic Diabetes mellitus without complication (3 sources) Type 2 diabetes mellitus; Translations: [Type 2 diabetes mellitus without complications] Onset: 2 05-04-2020 Chronic Disorders of lipid metabolism (5 sources) Hyperlipidemia; Translations: [Hyperlipidemia, unspecified] Onset: 2 05-04-2020 Chronic Essential hypertension (4 sources) Hypertensive disorder; Translations: [Essential (primary) hypertension] Onset: 3 05-04-2020 Chronic Heart valve disorders (2 sources) Functional heart murmur 05-04-2020 Episodic Hypertension with complications and secondary hypertension (12 sources) Chronic kidney disease due to hypertension; Translations: [Hypertensive chronic kidney disease with stage 1 through stage 4 chronic kidney disease, or unspecified chronic kidney disease] Onset: 2 Resolved: 2 Chronic Immunizations and screening for infectious disease (5 sources) Contact with and (suspected) exposure to other viral communicable diseases; Translations: [Contact with and (suspected) exposure to other viral communicable diseases] Episodic Mood disorders (1 source) Major depressive disorder, recurrent severe without psychotic features; Translations: [Major depressive disorder, recurrent severe without psychotic features] Onset: 1 Chronic Nutritional deficiencies (10 sources) Vitamin D deficiency; Translations: [Vitamin D deficiency, unspecified] Onset: 2 Resolved: 2 05-04-2020 Chronic Nutritional deficiencies (3 sources) Iron deficiency; Translations: [IRON DEFICIENCY] Onset: 2 Resolved: 2 Episodic Other circulatory disease (2 sources) Vascular insufficiency 05-04-2020 Episodic Other circulatory disease (2 sources) Other hypotension; Translations: [Other hypotension] Onset: 4 Episodic Other connective tissue disease (2 sources) Plantar fasciitis 05-04-2020 Episodic Other diseases of kidney and ureters (5 sources) Secondary hyperparathyroidism; Translations: [Secondary hyperparathyroidism of renal origin] Chronic Other diseases of kidney and ureters (2 sources) Disorder of kidney and ureter, unspecified; Translations: [Disorder of kidney and ureter, unspecified] Onset: 4 Episodic Other ear and sense organ disorders (2 sources) Sensorineural hearing loss, bilateral 05-04-2020 Chronic Other gastrointestinal disorders (2 sources) History of gastritis 05-04-2020 Episodic Other hereditary and degenerative nervous system conditions (2 sources) Restless legs 05-04-2020 Chronic Other nervous system disorders (1 source) Carpal tunnel syndrome, left upper limb; Translations: [CARPAL TUNNEL SYND LEFT UPPER LIMB] Onset: 2 Chronic Other nutritional; endocrine; and metabolic disorders (2 sources) Body mass index 40+ - severely obese 10-10-2021 Chronic Other nutritional; endocrine; and metabolic disorders (2 sources) Morbid obesity 09-26-2021 Chronic Other nutritional; endocrine; and metabolic disorders (1 source) Morbid (severe) obesity due to excess calories; Translations: [MORBID SEVERE OBES D/T EXCESS DARLENE] Onset: 2 Chronic Other nutritional; endocrine; and metabolic disorders (1 source) Obesity, unspecified; Translations: [OBESITY UNSPECIFIED] Onset: 2 Chronic Other nutritional; endocrine; and metabolic disorders (1 source) Body mass index (BMI) 50.0-59.9, adult; Translations: [BODY MASS INDEX BMI 50.0-59.9 ADULT] Onset: 2 Chronic Other nutritional; endocrine; and metabolic disorders (3 sources) Hyperuricemia without signs of inflammatory arthritis and tophaceous disease; Translations: [HU W/O SIGNS IA AND TOPHACEOUS DZ] Onset: 2 Resolved: 2 Episodic Other skin disorders (4 sources) Trichilemmal cyst; Translations: [Pilar cyst] Onset: 2 Episodic Other skin disorders (2 sources) Infection of sebaceous cyst 05-04-2020 Episodic Rashmi-; endo-; and myocarditis; cardiomyopathy (except that caused by tuberculosis or sexually transmitted disease) (10 sources) Hypertrophic obstructive cardiomyopathy; Translations: [Obstructive hypertrophic cardiomyopathy] Onset: 2 05-04-2020 Chronic Peripheral and visceral atherosclerosis (2 sources) Peripheral vascular disease 09-26-2021 Chronic Pulmonary heart disease (4 sources) H/O: pulmonary embolus; Translations: [Personal history of pulmonary embolism] Onset: 3 09-26-2021 Episodic Residual codes; unclassified (2 sources) Sleep apnea 05-04-2020 Chronic Residual codes; unclassified (1 source) Obstructive sleep apnea (adult) (pediatric); Translations: [OBSTRUCTIVE SLEEP APNEA] Onset: 2 Chronic Residual codes; unclassified (2 sources) Insomnia 05-04-2020 Episodic Retinal detachments; defects; vascular occlusion; and retinopathy (2 sources) Bilateral telangiectasis of retinas 05-04-2020 Chronic Skin and subcutaneous tissue infections (2 sources) Abscess of left axilla 05-18-2020 Episodic Spondylosis; intervertebral disc disorders; other back problems (2 sources) Cervical disc disorder 05-04-2020 Chronic Spondylosis; intervertebral disc disorders; other back problems (2 sources) Chronic low back pain 05-04-2020 Episodic Substance-related disorders (3 sources) Smoker; Translations: [Nicotine dependence, cigarettes, uncomplicated] Onset: 2 05-04-2020 Chronic Thyroid disorders (5 sources) Hyperthyroidism; Translations: [Thyroid colloid nodule ] Onset: 2 09-26-2021 Chronic Unclassified (1 source) CHRN KIDNEY DISEASE STG 3 UNSP; Translations: [CHRN KIDNEY DISEASE STG 3 UNSP] Onset: 3 Unclassified (1 source) CONTACT W/AND (SUSP) EXPOS COVID-19; Translations: [CONTACT W/AND (SUSP) EXPOS COVID-19] Onset: 2 Varicose veins of lower extremity (2 sources) Varicose veins of lower extremity 05-04-2020 Episodic Viral infection (1 source) Viral infection, unspecified Episodic Past or Other Problems Problem Classification Problem Date Documented Date Episodic/Chronic Cardiac dysrhythmias (1 source) Bradycardia, unspecified; Translations: [BRADYCARDIA UNSPECIFIED] Onset: 11-22-2021 Episodic Chronic kidney disease (3 sources) Chronic kidney disease; Translations: [Chronic kidney disease, stage 3 unspecified] Onset: 08-08-2021 Resolved: 08-08-2021 Conditions associated with dizziness or vertigo (3 sources) Dizziness and giddiness; Translations: [DIZZINESS AND GIDDINESS] Onset: 11-20-2021 Episodic Diabetes mellitus without complication (1 source) Hyperglycemia, unspecified; Translations: [HYPERGLYCEMIA UNSPECIFIED] Onset: 11-22-2021 Episodic Fluid and electrolyte disorders (3 sources) Hyperosmolality and hypernatremia; Translations: [Acidosis] Onset: 11-22-2021 Episodic Nonspecific chest pain (1 source) Other chest pain; Translations: [OTHER CHEST PAIN] Onset: 03-28-2022 Episodic Other aftercare (1 source) Other terminal clerk (current) drug therapy; Translations: [OTH INTENSIVE CARE MEDICINE SPECIALIST CURRENT DRUG THERAPY] Onset: 01-04-2022 Episodic Other aftercare (1 source) termite technician (current) use of aspirin; Translations: [INTENSIVE CARE MEDICINE SPECIALIST CURRENT USE OF ASPIRIN] Onset: 01-04-2022 Episodic Other aftercare (1 source) termite technician (current) use of insulin; Translations: [INTENSIVE CARE MEDICINE SPECIALIST CURRENT USE OF INSULIN] Onset: 01-04-2022 Episodic Other aftercare (1 source) termite technician (current) use of anticoagulants; Translations: [INTENSIVE CARE MEDICINE SPECIALIST CURRNT USE ANTICOAGULANTS] Onset: 11-22-2021 Episodic Other bone disease and musculoskeletal deformities (4 sources) Other specified disorders of bone density and structure, left thigh; Translations: [OTH D/O BONE DEN STRUCT LT THIGH] Onset: 02-14-2022 Episodic Other lower respiratory disease (1 source) Shortness of breath; Translations: [SHORTNESS OF BREATH] Onset: 11-22-2021 Episodic Other non-traumatic joint disorders (4 sources) Pain in left shoulder; Translations: [PAIN IN LEFT SHOULDER] Onset: 03-23-2022 Episodic Other non-traumatic joint disorders (1 source) Pain in right knee; Translations: [PAIN IN RIGHT KNEE] Onset: 03-28-2022 Episodic Other screening for suspected conditions (not mental disorders or infectious disease) (1 source) Encounter for screening mammogram for malignant neoplasm of breast; Translations: [ENC SCR MAMMO MALIG NEOPLASM BREAST] Onset: 03-13-2022 Episodic Other skin disorders (4 sources) Pilar cyst; Translations: [PILAR CYST] Onset: 12-27-2021 Episodic Other skin disorders (4 sources) Localized swelling, mass and lump, head; Translations: [LOCALIZED SWELLING MASS AND LUMP HEAD] Onset: 09-16-2021 Episodic Residual codes; unclassified (1 source) Family history of osteoporosis; Translations: [FAMILY HISTORY OF OSTEOPOROSIS] Onset: 03-13-2022 Episodic Residual codes; unclassified (1 source) Family history of malignant neoplasm, unspecified; Translations: [FAM HX MALIGNANT NEOPLASM UNS] Onset: 03-13-2022 Episodic Residual codes; unclassified (1 source) Pain, unspecified; Translations: [PAIN UNSPECIFIED] Onset: 01-04-2022 Episodic Residual codes; unclassified (1 source) Transient alteration of awareness; Translations: [TRANSIENT ALTERATION OF AWARENESS] Onset: 11-22-2021 Episodic Shock (1 source) Cardiogenic shock; Translations: [CARDIOGENIC SHOCK] Onset: 11-22-2021 Episodic Unclassified (2 sources) Drug therapy finding 10-10-2021 Results Test Name Value Interpretation Reference Range Facility Office Visiton 05-24-2023 Follow-up visit [id number] Jessica Vila 1965 F Date Provider Department Center 05/24/2023 KATHERYN MARTINEZ Family History Problem Relation Age of Onset Breast cancer Mother Family Status - Relation Status Age at Mother Level of Service:84607 [place] OFFICE/OUTPATIENT ESTABLISHED MOD MDM 30 MIN Normal [facility] Office Visiton 12-07-2022 Follow-up visit [id number] Jessica Vila 1965 F Date Provider Department Center 12/07/2022 KATHERYN MARTINEZ Family History Problem Relation Age of Onset Breast cancer Mother Family Status - Relation Status Age at Mother Level of Service:89409 [place] OFFICE/OUTPATIENT ESTABLISHED LOW MDM 20-29 MIN Reason for Visit and Comments: Follow-up [834395] - 6 MONTH FOLLOW UP Normal [facility] PTH INTACTon 08-08-2022 PTH, Intact 34 pg/mL Normal 15-65 [facility] Comment on above: Performed By: #### C LIBERTAD #### [facility] [address] [place] [address] Dr. Kelsie Dominguez HEMOGRAM AND PLATELon 2022 Hematocrit (Bld) [Volume fraction] 38.1 % Normal 36.0-48.0 [facility] Comment on above: Performed By: #### H H #### [facility] [address] [place] [address] Dr. Kelsie Dominguez Hemoglobin (Bld) [Mass/Vol] 12.5 g/dL Normal 12.0-16.0 [facility] Comment on above: Performed By: #### H H #### [facility] [address] [place] [address] Dr. Kelsie Dominguez MCH (RBC) [Entitic mass] 29.8 pg Normal 26.7-34.0 [facility] Comment on above: Performed By: #### H H #### [facility] [address] [place] [address] Dr. Kelsie Dominguez MCHC (RBC) [Mass/Vol] 32.8 g/dL Normal 29.9-35.2 [facility] Comment on above: Performed By: #### H H #### [facility] [address] [place] [address] Dr. Kelsie Dominguez MCV (RBC) [Entitic vol] 90.9 fL Normal 81.0-99.0 [facility] Comment on above: Performed By: #### H H #### [facility] [address] [place] [address] Dr. Kelsie Dominguez PLT 207 103/ul Normal 150-450 [facility] Comment on above: Performed By: #### H H #### [facility] [address] [place] [address] Dr. Kelsie Dominguez RBC 4.19 106/ul Critically low 4.20-5.40 [facility] Comment on above: Performed By: #### H H #### [facility] [address] [place] [address] Dr. Kelsie Dominguez WBC 5.1 103/ul Normal 4.0-11.0 [facility] Comment on above: Performed By: #### H H #### [facility] [address] [place] [address] Dr. Kelsie Dominguez MAGNESIUMon 08-07-2022 Magnesium [Mass/Vol] 1.9 mg/dL Normal 1.8-2.4 [facility] Comment on above: Performed By: #### H H #### [facility] [address] [place] [address] Dr. Kelsie Dominguez RENAL FUNCTION PANELon 08-07 Albumin [Mass/Vol] 3.0 g/dL Critically low 3.4-5.0 [facility] Comment on above: Performed By: #### H H #### [facility] [address] [place] [address] Dr. Kelsie Dominguez Calcium [Mass/Vol] 9.1 mg/dL Normal 8.5-10.1 [facility] Comment on above: Performed By: #### H H #### [facility] [address] [place] [address] Dr. Kelsie Dominguez Chloride [Moles/Vol] 103 mmol/L Normal 98-107 [facility] Comment on above: Performed By: #### H H #### [facility] [address] [place] [address] Dr. Kelsie Dominguez CO2 [Moles/Vol] 24.9 mmol/L Normal 21.0-32.0 [facility] Comment on above: Performed By: #### H H #### [facility] [address] [place] [address] Dr. Kelsie Dominguez Creatinine [Mass/Vol] 1.75 mg/dL Critically high 0.55-1.02 [facility] Comment on above: Performed By: #### H H #### [facility] [address] [place] [address] Dr. Kelsie Dominguez EGFR-AF NAMIBIAN 36 mL/min/1.73m2 Critically low >=60 [facility] Comment on above: Performed By: #### H H #### [facility] [address] [address] [address] Kelsie Dominguez EGFR-NON AF NAMIBIAN 30 mL/min/1.73m2 Critically low >=60 [facility] Comment on above: Performed By: #### H H #### [facility] [address] [address] [address] Kelsie Dominguez Glucose [Mass/Vol] 222 mg/dL Critically high 74-106 [facility] Comment on above: Performed By: #### H H #### [facility] [address] [address] [address] Kelsie Dominguez Phosphate [Mass/Vol] 3.6 mg/dL Normal 2.6-4.7 [facility] Comment on above: Performed By: #### H H #### [facility] [address] [address] [address] Kelsie Dominguez Potassium [Moles/Vol] 3.6 mmol/L Normal 3.5-5.1 [facility] Comment on above: Performed By: #### H H #### [facility] [address] [address] [address] Kelsie Dominguez Sodium [Moles/Vol] 141 mmol/L Normal 136-145 [facility] Comment on above: Performed By: #### H H #### [facility] [address] [address] [address] Kelsie Dominguez Urea nitrogen [Mass/Vol] 31.0 mg/dL Critically high 7.0-18.0 [facility] Comment on above: Performed By: #### H H #### [facility] [address] [place] [address] Dr. Kelsie Dominguez UA RANDOM W/MICROSCOPICon BACTERIA NONE SEEN Normal NONE SEEN [facility] Comment on above: Performed By: #### V ITAD #### [facility] [address] [address] [address] Kelsie Dominguez Bilirubin Ql (U) Negative Normal NEGATIVE [facility] Comment on above: Performed By: #### V ITAD #### [facility] [address] [place] [address] Dr. Kelsie Dominguez CAST NONE SEEN Normal NONE SEEN [facility] Comment on above: Performed By: #### V ITAD #### [facility] [address] [place] [address] Dr. Kelsie Dominguez Clarity (U) CLEAR Normal CLEAR [facility] Comment on above: Performed By: #### V ITAD #### [facility] [address] [place] [address] Dr. Kelsie Dominguez Color (U) LT. YELLOW Normal YELLOW [facility] Comment on above: Performed By: #### V ITAD #### [facility] [address] [place] [address] Dr. Kelsie Dominguez Crystals LM Nom (Urine sed) NONE SEEN Normal NONE SEEN [facility] Comment on above: Performed By: #### V ITAD #### [facility] [address] [place] [address] Dr. Kelsie Dominguez Epithelial cells LM Ql (Urine sed) RARE Normal NONE SEEN /RARE [facility] Comment on above: Performed By: #### V ITAD #### [facility] [address] [place] [address] Dr. Kelsie Domingeuz Glucose Ql (U) 250 mg/dl Abnormal NEGATIVE [facility] Comment on above: Performed By: #### V ITAD #### [facility] [address] [place] [address] Dr. Kelsie Dominguez Hemoglobin Ql (U) SMALL Abnormal NEGATIVE [facility] Comment on above: Performed By: #### V ITAD #### [facility] [address] [place] [address] Dr. Kelsie Dominguez Ketones Ql (U) Negative Normal NEGATIVE [facility] Comment on above: Performed By: #### V ITAD #### [facility] [address] [place] [address] Dr. Kelsie Dominguez LEUKOCYTES TRACE Abnormal NEGATIVE [facility] Comment on above: Performed By: #### V ITAD #### [facility] [address] [place] [address] Dr. Kelsie Dominguez MUCOUS TRACE Abnormal NONE SEEN [facility] Comment on above: Performed By: #### V ITAD #### [facility] [address] [place] [address] Dr. Kelsie Dominguez Nitrite Ql (U) Negative Normal NEGATIVE [facility] Comment on above: Performed By: #### V ITAD #### [facility] [address] [place] [address] Dr. Kelsie Dominguez pH (U) 6.0 [pH] Normal 5-9 [facility] Comment on above: Performed By: #### V ITAD #### [facility] [address] [place] [address] Dr. Kelsie Dominguez RBC 5-10 Abnormal 0-2 [facility] Comment on above: Performed By: #### V ITAD #### [facility] [address] [place] [address] Dr. Kelsie Dominguez SPEC GRAVITY 1.010 Normal 1.005-<=1.02 5 [facility] Comment on above: Performed By: #### V ITAD #### [facility] [address] [place] [address] Dr. Kelsie Dominguez UA PROTEIN Negative Normal NEGATIVE/ TRACE [facility] Comment on above: Performed By: #### V ITAD #### [facility] [address] [place] [address] Dr. Kelsie Dominguez Urobilinogen Qn (U) 0.2 {Miguel'U}/dL Normal 0.2 - 1. 0 [facility] Comment on above: Performed By: #### V ITAD #### [facility] [address] [place] [address] Dr. Kelsie Dominguez WBC 10-20 Abnormal NONE SEEN [facility] Comment on above: Performed By: #### V ITAD #### [facility] [address] [place] [address] Dr. Kelsie Dominguez URIC ACID SERUMon 08-07-2022 Urate [Mass/Vol] 10.2 mg/dL Critically high 2.6-6.0 [facility] Comment on above: Performed By: #### H H #### [facility] [address] [address] [address] Kelsie Dominguez URINE T PROTEIN CREAT RATIOo n 08-07-2022 Protein (U) [Mass/Vol] 25.3 mg/dL Critically high <=12.0 [facility] Comment on above: Performed By: #### V ITAD #### [facility] [address] [address] [address] Kelsie Dominguez UR PROT CREAT RAT 0.21 Normal [facility] Comment on above: Performed By: #### V ITAD #### [facility] [address] [place] [address] Dr. Kelsie Dominguez URINE CREAT 121.04 mg/dL Normal 20.00-300.00 [facility] Comment on above: Performed By: #### V ITAD #### [facility] [address] [address] [address] Kelsie Dominguez VITAMIN D 25 OHon 08-07-2022 VIT D 25-OH 30.9 ng/mL Normal [facility] Comment on above: Performed By: #### V ITAD #### [facility] [address] [place] [address] Dr. Kelsie Dominguez VIT D RANGES SEE BELOW Normal [facility] Comment on above: Result Comment: <20 ng/mL Vit D deficient 20 - <30 ng/mL Vit D insufficient 30 - 100 ng/mL Vit D sufficient >100 ng/mL Potential Toxicity Performed By: #### V ITAD #### [facility] [address] [place] [address] Dr. Kelsie Dominguez Office Visiton 06-11-2022 Follow-up visit [id number] Jessica Vila 1965 F Date Provider Department Center 06/11/2022 KATHERYN MARTINEZ [facility] Family History Problem Relation Age of Onset Breast cancer Mother Family Status - Relation Status Age at Mother Level of Service:44831 CA OFFICE/OUTPATIENT ESTABLISHED LOW MDM 20-29 MIN Reason for Visit and Comments: Hyperlipidemia [182] Hypertension [214180] Cardiomyopathy [104] Normal [facility] MG MAMM SCREEN 3D AARON CADon 02-14-2022 MG MAMM SCREEN 3D AARON CAD Patient: RAQUEL VILA Exam Date: 02/14/2022 : 1965 Gender:F Ordering : DR. SHREYAS LONG M.D. Admission #: [id number] Family : Order #: [id number] CLICK HERE TO VIEW EXAM RADIOLOGY REPORT PROCEDURE: MAMMOGRAM SCREENING 3D BILATERAL CAD COMPARISON: MG MAMM SCREEN 3D AARON CAD, 11/08/2020. MG MAMM SCREEN AARON W CAD, 10/15/2019. INDICATIONS: Screening mammography Calculator Name NCI Breast Cancer Risk Assessment Tool 5 Year Breast Cancer Risk 1.00% Lifetime Breast Cancer Risk 6.60% Personal Breast Cancer No Personal Ovarian Cancer No Treatments None Family Cancers Mother with unknown cancer at age 72. LOCATION: [facility] BREAST COMPOSITION: Scattered areas fibroglandular density. FINDINGS: DIAGNOSTIC CATEGORY 1--NEGATIVE. NO CHANGE FROM COMPARISON ASSESSMENT. Scattered benign-appearing calcifications are present. RIGHT BREAST: No significant suspicious finding. LEFT BREAST: No significant suspicious finding. RECOMMENDATIONS: ROUTINE MAMMOGRAM AND CLINICAL EVALUATION IN 12 MONTHS. PLEASE NOTE: A NORMAL MAMMOGRAM DOES NOT EXCLUDE THE POSSIBILITY OF BREAST CANCER. A CLINICALLY SUSPICIOUS PALPABLE LUMP SHOULD BE BIOPSIED. Dictated by: Damien Dunn MD on 02/14/2022 at 11:20 Approved by: Damien Dunn MD on 02/14/2022 at 11:22 Normal [facility] XR DEXA BONE DENSITYon 02-14 XR DEXA BONE DENSITY EXAMINATION: XR DEX A BONE DENSITY, 02/14/2022 9:40 AM EDT HISTORY: FH: Osteoporosis COMPARISON: DEXA bone densitometry 04/28/2020 TECHNIQUE: Dual-energy X-ray absorptiometry (DEXA) bone density study performed for the axial skeleton. FINDINGS: SPINE ANALYSIS: Average bone mineral density is 1.135 g/cm2. T-score (standard deviation relative to young adult mean): -0.4 . -3.8% change since prior study. HIP ANALYSIS: Lowest bone mineral density is within the left femoral neck, 0.10 g/cm2. T-score (standard deviation relative to young adult mean): -1.6 . -7.7% change since prior study. IMPRESSION: [employer] Classification: Osteopenia - Moderate Fracture Risk Electronically authenticated by: AMARA LANEY Date: 2022-02-14 21:14 Normal [facility] PTH INTACTon 02-02-2022 PTH, Intact 23 pg/mL Normal 15-65 [facility] Comment on above: Performed By: #### C LIBERTAD #### [facility] [address] [place] [address] Dr. Kelsie Dominguez FERRITINon 01-31-2022 Ferritin [Mass/Vol] 96.0 ng/mL Normal 8.0-252.0 [facility] Comment on above: Performed By: #### C LIBERTAD #### [facility] [address] [place] [address] Dr. Kelsie Dominguez HEMOGRAM AND PLATELon 2021 Hematocrit (Bld) [Volume fraction] 38.7 % Normal 36.0-48.0 [facility] Comment on above: Performed By: #### H H #### [facility] [address] [place] [address] Dr. Kelsie Dominguez Hemoglobin (Bld) [Mass/Vol] 12.4 g/dL Normal 12.0-16.0 [facility] Comment on above: Performed By: #### H H #### [facility] [address] [place] [address] Dr. Kelsie Dominguez MCH (RBC) [Entitic mass] 31.3 pg Normal 26.7-34.0 [facility] Comment on above: Performed By: #### H H #### [facility] [address] [place] [address] Dr. Kelsie Dominguez MCHC (RBC) [Mass/Vol] 32.0 g/dL Normal 29.9-35.2 [facility] Comment on above: Performed By: #### H H #### [facility] [address] [place] [address] Dr. Kelsie Dominguez MCV (RBC) [Entitic vol] 97.7 fL Normal 81.0-99.0 [facility] Comment on above: Performed By: #### H H #### [facility] [address] [address] [address] Kelsie Dominguez PLT 157 103/ul Normal 150-450 [facility] Comment on above: Performed By: #### H H #### [facility] [address] [address] [address] Kelsie Dominguez RBC 3.96 106/ul Critically low 4.20-5.40 [facility] Comment on above: Performed By: #### H H #### [facility] [address] [address] [address] Kelsie Dominguez WBC 6.8 103/ul Normal 4.0-11.0 [facility] Comment on above: Performed By: #### H H #### [facility] [address] [address] [address] Kelsie Dominguez IRON AND TIBCon 01-31-2022 % SATURATION 16.4 % Normal [facility] Comment on above: Performed By: #### C LIBERTAD #### [facility] [address] [place] [address] Dr. Kelsie Dominguez Iron [Mass/Vol] 44.0 ug/dL Critically low 50.0-170.0 [facility] Comment on above: Performed By: #### C LIBERTAD #### [facility] [address] [address] [address] Kelsie Dominguez TIBC DIRECT 268.0 ug/dL Normal 250.0-450.0 [facility] Comment on above: Performed By: #### C LIBERTAD #### [facility] [address] [place] [address] Dr. Kelsie Dominguez MAGNESIUMon 01-31-2022 Magnesium [Mass/Vol] 1.9 mg/dL Normal 1.8-2.4 [facility] Comment on above: Performed By: #### M Mary, RENAL, URIC #### [facility] [address] [place] [address] Dr. Kelsie Dominguez RENAL FUNCTION PANELon 01-31 Albumin [Mass/Vol] 3.3 g/dL Critically low 3.4-5.0 [facility] Comment on above: Performed By: #### M G, RENAL, URIC #### [facility] [address] [address] [address] Kelsie Dominguez Calcium [Mass/Vol] 9.3 mg/dL Normal 8.5-10.1 [facility] Comment on above: Performed By: #### M G, RENAL, URIC #### [facility] [address] [address] [address] Kelsie Dominguez Chloride [Moles/Vol] 110 mmol/L Critically high 98-107 [facility] Comment on above: Performed By: #### M G, RENAL, URIC #### [facility] [address] [address] [address] Kelsie Dominguez CO2 [Moles/Vol] 24.0 mmol/L Normal 21.0-32.0 [facility] Comment on above: Performed By: #### M G, RENAL, URIC #### [facility] [address] [place] [address] Dr. Kelsie Dominguez Creatinine [Mass/Vol] 1.37 mg/dL Critically high 0.55-1.02 [facility] Comment on above: Performed By: #### M G, RENAL, URIC #### [facility] [address] [place] [address] Dr. Kelsie Dominguez EGFR-AF NAMIBIAN 48 mL/min/1.73m2 Critically low >=60 [facility] Comment on above: Performed By: #### M G, RENAL, URIC #### [facility] [address] [place] [address] Dr. Kelsie Dominguez EGFR-NON AF NAMIBIAN 40 mL/min/1.73m2 Critically low >=60 [facility] Comment on above: Performed By: #### M G, RENAL, URIC #### [facility] [address] [address] [address] Kelsie Dominguez Glucose [Mass/Vol] 280 mg/dL Critically high 74-106 [facility] Comment on above: Performed By: #### M G, RENAL, URIC #### [facility] [address] [address] [address] Kelsie Dominguez Phosphate [Mass/Vol] 3.7 mg/dL Normal 2.6-4.7 [facility] Comment on above: Performed By: #### M G, RENAL, URIC #### [facility] [address] [place] [address] Dr. Kelsie Dominguez Potassium [Moles/Vol] 4.4 mmol/L Normal 3.5-5.1 [facility] Comment on above: Performed By: #### M G, RENAL, URIC #### [facility] [address] [place] [address] Dr. Kelsie Dominguez Sodium [Moles/Vol] 146 mmol/L Critically high 136-145 [facility] Comment on above: Performed By: #### M G, RENAL, URIC #### [facility] [address] [place] [address] Dr. Kelsie Dominguez Urea nitrogen [Mass/Vol] 36.0 mg/dL Critically high 7.0-18.0 [facility] Comment on above: Performed By: #### M G, RENAL, URIC #### [facility] [address] [place] [address] Dr. Kelsie Dominguez UA RANDOM W/MICROSCOPICon BACTERIA SMALL Abnormal NONE SEEN [facility] Comment on above: Performed By: #### V ITAD #### [facility] [address] [place] [address] Dr. Kelsie Dominguez Bilirubin Ql (U) Negative Normal NEGATIVE [facility] Comment on above: Performed By: #### V ITAD #### [facility] [address] [place] [address] Dr. Kelsie Dominguez CAST NONE SEEN Normal NONE SEEN [facility] Comment on above: Performed By: #### V ITAD #### [facility] [address] [place] [address] Dr. Kelsie Dominguez Clarity (U) CLEAR Normal CLEAR [facility] Comment on above: Performed By: #### V ITAD #### [facility] [address] [place] [address] Dr. Kelsie Dominguez Color (U) LT. YELLOW Normal YELLOW [facility] Comment on above: Performed By: #### V ITAD #### [facility] [address] [place] [address] Dr. Kelsie Dominguez Crystals LM Nom (Urine sed) NONE SEEN Normal NONE SEEN [facility] Comment on above: Performed By: #### V ITAD #### [facility] [address] [place] [address] Dr. Kelsie Dominguez Epithelial cells LM Ql (Urine sed) FEW Abnormal NONE SEEN /RARE [facility] Comment on above: Performed By: #### V ITAD #### [facility] [address] [place] [address] Dr. Kelsie Dominguez Glucose Ql (U) 500 mg/dl Abnormal NEGATIVE [facility] Comment on above: Performed By: #### V ITAD #### [facility] [address] [place] [address] Dr. Kelsie Dominguez Hemoglobin Ql (U) LARGE Abnormal NEGATIVE [facility] Comment on above: Performed By: #### V ITAD #### [facility] [address] [place] [address] Dr. Kelsie Dominguez Ketones Ql (U) Negative Normal NEGATIVE [facility] Comment on above: Performed By: #### V ITAD #### [facility] [address] [place] [address] Dr. Kelsie Dominguez LEUKOCYTES SMALL Abnormal NEGATIVE [facility] Comment on above: Performed By: #### V ITAD #### [facility] [address] [place] [address] Dr. Kelsie Dominguez MUCOUS NONE SEEN Normal NONE SEEN [facility] Comment on above: Performed By: #### V ITAD #### [facility] [address] [place] [address] Dr. Kelsie Dominguez Nitrite Ql (U) Negative Normal NEGATIVE [facility] Comment on above: Performed By: #### V ITAD #### [facility] [address] [place] [address] Dr. Kelsie Dominguez pH (U) 6.0 [pH] Normal 5-9 [facility] Comment on above: Performed By: #### V ITAD #### [facility] [address] [place] [address] Dr. Kelsie Dominguez RBC 20-50 Abnormal 0-2 [facility] Comment on above: Performed By: #### V ITAD #### [facility] [address] [place] [address] Dr. Kelsie Dominguez SPEC GRAVITY 1.020 Normal 1.005-<=1.02 5 [facility] Comment on above: Performed By: #### V ITAD #### [facility] [address] [address] [address] Kelsie Dominguez UA PROTEIN 30 mg/dl Abnormal NEGATIVE/ TRACE [facility] Comment on above: Performed By: #### V ITAD #### [facility] [address] [place] [address] Dr. Kelsie Dominguez Urobilinogen Qn (U) 0.2 {Miguel'U}/dL Normal 0.2 - 1. 0 [facility] Comment on above: Performed By: #### V ITAD #### [facility] [address] [place] [address] Dr. Kelsie Dominguez WBC 20-50 Abnormal NONE SEEN [facility] Comment on above: Performed By: #### V ITAD #### [facility] [address] [place] [address] Dr. Kelsie Dominguez URIC ACID SERUMon 01-31-2022 Urate [Mass/Vol] 9.4 mg/dL Critically high 2.6-6.0 [facility] Comment on above: Performed By: #### M G, RENAL, URIC #### [facility] [address] [place] [address] Dr. Kelsie Dominguez URINE T PROTEIN CREAT RATIOo n 01-31-2022 Protein (U) [Mass/Vol] 56.9 mg/dL Critically high <=12.0 [facility] Comment on above: Performed By: #### H H #### [facility] [address] [place] [address] Dr. Kelsie Dominguez UR PROT CREAT RAT 0.42 Normal [facility] Comment on above: Performed By: #### H H #### [facility] [address] [place] [address] Dr. Kelsie Dominguez URINE CREAT 136.85 mg/dL Normal 20.00-300.00 [facility] Comment on above: Performed By: #### H H #### [facility] [address] [address] [address] Kelsie Dominguez VITAMIN D 25 OHon 01-31-2022 VIT D 25-OH 32.0 ng/mL Normal [facility] Comment on above: Performed By: #### C LIBERTAD #### [facility] [address] [address] [address] Kelsie Dominguez VIT D RANGES SEE BELOW Normal [facility] Comment on above: Result Comment: <20 ng/mL Vit D deficient 20 - <30 ng/mL Vit D insufficient 30 - 100 ng/mL Vit D sufficient >100 ng/mL Potential Toxicity Performed By: #### C LIBERTAD #### [facility] [address] [address] [address] Kelsie Dominguez [facility] [place] [place] [facility] January 11, 2022 [address] [place] [address] RAQUEL VILA 1965 To Whom It May Concern, Please excuse above patient from work 01/10/2022 due to doctor office appointment. . Sincerely, Dr. Nalini Landers MD General Surgery [facility] Ambulatory Visit Summaryon 0 01-10-2022 Ambulatory Visit Summary RAQUEL VILA :1965 Visit Date:01/10/2022 Ambulatory Visit Instructions Your Care Team Attending Physician - SHAHEED ARAIZA, Nalini Segundo Primary Care Physician - Lisbeth Grace MD This Is Your Medications List aspirin (aspirin 81 mg Oral EC Tab) atorvastatin (atorvastatin 20 mg Tab) calcium-vitamin D (calcium (as carbonate)-vitamin D 600 mg-800 intl units oral tablet) dapagliflozin (Farxiga 5 mg oral tablet) diltiazem (diltiazem 24 hour extended release) escitalopram (Lexapro 20 mg Tab) furosemide (Lasix 40 mg Tab) glimepiride (glimepiride 4 mg Tab) hydrOXYzine (hydrOXYzine hydrochloride 25 mg Tab) insulin glargine (Lantus 100 units/mL Injection-Insulin) iron polysaccharide (ProFe 180 mg oral capsule) lisinopril (lisinopril 2.5 mg Tab) magnesium oxide (magnesium oxide 400 mg Tab) metoprolol (Metoprolol succinate 100 mg ER Tablet) metoprolol (metoprolol 200 mg ER Tab) omeprazole (omeprazole 20 mg Cap-DR) pramipexole (pramipexole 1 mg Tab) Procedures Performed section, Deviated nasal septum, Excision of cyst, Rotator cuff tear, Tonsillectomy with adenoidectomy, Uvulectomy. Medications What How Much When Instructions Unchanged aspirin (aspirin 81 mg Oral EC Tab) 1 Tablets By Mouth Every day Unchanged atorvastatin (atorvastatin 20 mg Tab) 1 Tablets By Mouth Every day Unchanged calcium-vitamin D (calcium (as carbonate)-vitamin D 600 mg-800 intl units oral tablet) 1 Tablets By Mouth 2 times a day Unchanged dapagliflozin (Farxiga 5 mg oral tablet) 2 Tablets By Mouth Every day Unchanged diltiazem (diltiazem 24 hour extended release) 1 Capsules By Mouth Every day Unchanged escitalopram (Lexapro 20 mg Tab) 1 Tablets By Mouth Every day Unchanged furosemide (Lasix 40 mg Tab) 2 Tablets By Mouth Every day Unchanged glimepiride (glimepiride 4 mg Tab) 2 Tablets By Mouth Every day Unchanged hydrOXYzine (hydrOXYzine hydrochloride 25 mg Tab) 1 Tablets By Mouth 4 times a day as needed for as needed for anxiety Unchanged insulin glargine (Lantus 100 units/ mL Injection-Insulin) 40 Units Subcutaneous Once a day (at bedtime) Unchanged iron polysaccharide (ProFe 180 mg oral capsule) 1 Capsules By Mouth Every day Unchanged lisinopril (lisinopril 2.5 mg Tab) 1 Tablets By Mouth Every day Unchanged magnesium oxide (magnesium oxide 400 mg Tab) 1 Tablets By Mouth Every day Unchanged metoprolol (metoprolol 200 mg ER Tab) 1 Tablets By Mouth Every day along with 100mg tab Unchanged metoprolol (Metoprolol succinate 100 mg ER Tablet) 1 Tablets By Mouth Every day Unchanged omeprazole (omeprazole 20 mg Cap-DR) 1 Capsules By Mouth Every day Unchanged pramipexole (pramipexole 1 mg Tab) 1 Tablets By Mouth At bedtime Allergies No Known Allergies No Known Medication Allergies Problems Ongoing - Any problem that you are currently receiving treatment for. Anxiety and depression Asymptomatic varicose veins of bilateral lower extremities Benign and innocent cardiac murmurs Bilateral sensorineural hearing loss BMI 45.0-49.9, adult Cardiomyopathy, hypertrophic obstructive Cervical disc disease Chronic low back pain Colloid thyroid nodule DM II (diabetes mellitus, type II), controlled Heart failure, diastolic History of gastritis History of pulmonary embolism HTN (hypertension) Hyperlipidemia Hyperthyroidism Hypertrophic obstructive cardiomyopathy Infected sebaceous cyst Insomnia Morbid obesity Pilar cysts Plantar fasciitis PVD (peripheral vascular disease) Retinal telangiectasia of both eyes RLS (restless legs syndrome) Sleep apnea Smoker Venous insufficiency Vitamin D deficiency Historical - Any problem that you are no longer receiving treatment for. Anticoagulated Left axillary abscess Normal [facility] General Surgery Office/Clini c Noteon 01-10-2022 General Surgery Office/Clinic Note Chief Complaint post operative follow up HPI Staff 14 day post operative follow up post excisional biopsy pilar cyst occipital and parietal scalps. Denies tenderness, bleeding or drainage. Sutures intact. History of Present Illness 2 weeks s/p excision pilar cysts x 2, doing well, mild soreness, no drainage; pathology consistent with pilar cysts. Physical Exam skin: incisions healing well, no erythema or drainage. Assessment/Plan 1. Pilar cysts (L72.11: Pilar cyst) doing well, sutures removed; call with problems/questions. Follow-up No qualifying data available Problem List/Past Medical History Ongoing Anxiety and depression Asymptomatic varicose veins of bilateral lower extremities Benign and innocent cardiac murmurs Bilateral sensorineural hearing loss BMI 45.0-49.9, adult Cardiomyopathy, hypertrophic obstructive Cervical disc disease Chronic low back pain Colloid thyroid nodule DM II (diabetes mellitus, type II), controlled Heart failure, diastolic History of gastritis History of pulmonary embolism HTN (hypertension) Hyperlipidemia Hyperthyroidism Hypertrophic obstructive cardiomyopathy Infected sebaceous cyst Insomnia Morbid obesity Pilar cysts Plantar fasciitis PVD (peripheral vascular disease) Retinal telangiectasia of both eyes RLS (restless legs syndrome) Sleep apnea Smoker Venous insufficiency Vitamin D deficiency Historical Anticoagulated Left axillary abscess Procedure/Surgical History section, Deviated nasal septum, Excision of cyst, Rotator cuff tear, Tonsillectomy with adenoidectomy, Uvulectomy. Medications aspirin 81 mg Oral EC Tab, 81 mg= 1 tab(s), Oral, Daily atorvastatin 20 mg Tab, 20 mg= 1 tab(s), Oral, Daily calcium (as carbonate)-vitamin D 600 mg-800 intl units oral tablet, 1 tab(s), Oral, BID diltiazem 24 hour extended release, 1 cap(s), Oral, Daily Farxiga 5 mg oral tablet, 10 mg= 2 tab(s), Oral, Daily glimepiride 4 mg Tab, 8 mg= 2 tab(s), Oral, Daily hydrOXYzine hydrochloride 25 mg Tab, 25 mg= 1 tab(s), Oral, QID, PRN Lantus 100 units/mL Injection-Insulin, 40 unit(s), SubCutaneous, Once a day (at bedtime) Lasix 40 mg Tab, 80 mg= 2 tab(s), Oral, Daily Lexapro 20 mg Tab, 20 mg= 1 tab(s), Oral, Daily lisinopril 2.5 mg Tab, 2.5 mg= 1 tab(s), Oral, Daily magnesium oxide 400 mg Tab, 400 mg= 1 tab(s), Oral, Daily metoprolol 200 mg ER Tab, 200 mg= 1 tab(s), Oral, Daily Metoprolol succinate 100 mg ER Tablet, 1 tab(s), Oral, Daily omeprazole 20 mg Cap-DR, 20 mg= 1 cap(s), Oral, Daily pramipexole 1 mg Tab, 1 mg= 1 tab(s), Oral, Bedtime ProFe 180 mg oral capsule, 180 mg= 1 cap(s), Oral, Daily Allergies No Known Allergies No Known Medication Allergies Social History Alcohol - Denies Alcohol Use, 05/04/2020 Substance Abuse - Denies Substance Abuse, 05/04/2020 Tobacco Former smoker, quit more than 30 days ago Tobacco Use:. Never Smokeless Tobacco Use:., 10/10/2021 Family History Diabetes mellitus type 2: Mother. Hypertension: Mother. Multiple myeloma: Sister. Immunizations Vaccine Date Status Comments influenza virus vaccine, inactivated - Not Given Patient Refuses Normal [facility] Comment on above: Result Comment: Elec tronically Signed By: SHAHEED ARAIZA, Nalini Feng\Date and Time Signed: 01/10/22 17:59 EDT Pathology Noteon 01-04-2022 Pathology Note [id number]# 1.00CD:127 Normal [facility] Operative Reporton Operative Report [id number]#1 .00CD:127 Normal [facility] Consultation Noteon 12-27-19 Consultation Note [id number] .00CD:127 Normal [facility] SARS-CoV-2 (COVID-19) RNA NA A+probe Ql (Resp)on 12-06-2021 SARS-CoV-2 (COVID-19) RNA SUZANNA+probe Ql (Unsp spec) Positive [employer] Other Physician Referralon 022 Physician Referral [id number] .00CD:127 Normal [facility] Lab Reportson 12-01-2021 Lab Reports [id number] .00CD:127 Normal [facility] BASIC METABOLIC PANELon Calcium [Mass/Vol] 8.7 mg/dL Normal 8.6-10.3 [facility] Comment on above: Order Comment: No: D o not add to previous draw Performed By: #### 8 4511 #### [facility] [address] [place] [address], [facility] Chloride [Moles/Vol] 104 mmol/L Normal 98-107 [facility] Comment on above: Order Comment: No: D o not add to previous draw Performed By: #### 8 4511 #### [facility] [address] [place] [address], [facility] CO2 [Moles/Vol] 27 mmol/L Normal 21-31 [facility] Comment on above: Order Comment: No: D o not add to previous draw Performed By: #### 8 4511 #### [facility] [address] [place] [address], [facility] Creatinine [Mass/Vol] 0.85 mg/dL Normal 0.60-1.20 [facility] Comment on above: Order Comment: No: D o not add to previous draw Performed By: #### 8 4511 #### [facility] [address] [place] [address], [facility] GFR/1.73 sq M.predicted among non-blacks MDRD (S/P/Bld) [Vol rate/Area] mL/min/{1.73_m2} Normal >60 The [facility] Comment on above: Order Comment: No: D o not add to previous draw Result Comment: The [facility]'s estimated glomerular filtration rate (eGFR) will no longer include consideration of race in its calculation. The National Kidney Foundation's eGFR Task Force developed new recommendations for the estimation of the glomerular filtration rate in the [place] They recommend immediate implementation of the new equation refit without the race variable in all laboratories because the calculation does not include race. In addition to not including race in the calculation and reporting, it included diversity in its development, and has acceptable performance characteristics and potential consequences that do not disproportionately affect any one group of individuals. Performed By: #### 8 4511 #### [facility] [address] [place] [address], [facility] Glucose [Mass/Vol] 150 mg/dL High 70-100 [facility] Comment on above: Order Comment: No: D o not add to previous draw Performed By: #### 8 4511 #### [facility] [address] [place] [address], [place] Potassium [Moles/Vol] 4.3 mmol/L Normal 3.5-5.1 [facility] Comment on above: Order Comment: No: D o not add to previous draw Performed By: #### 8 4511 #### [facility] [address] [place] [address], [place] Sodium [Moles/Vol] 139 mmol/L Normal 136-145 [facility] Comment on above: Order Comment: No: D o not add to previous draw Performed By: #### 8 4511 #### [facility] [address] [place] [address], [facility] Urea nitrogen [Mass/Vol] 11 mg/dL Normal 7-25 The [facility] Comment on above: Order Comment: No: D o not add to previous draw Performed By: #### 8 4511 #### [facility] [address] [place] [address], [place] POC GLUCOSE LABon 11-24-2021 Glucose [Mass/Vol] 176 mg/dL High 70-100 [facility] Comment on above: Performed By: #### 8 5499 #### [facility] [address] [place] [address], [place] Glucose [Mass/Vol] 141 mg/dL High 70-100 [facility] Comment on above: Performed By: #### 8 5499 #### [facility] [address] [place] [address], [place] Glucose [Mass/Vol] 147 mg/dL High 70-100 [facility] Comment on above: Performed By: #### 8 5499 #### [facility] [address] [place] [address], [facility] BASIC METABOLIC PANELon 08-0 Calcium [Mass/Vol] 8.2 mg/dL Low 8.6-10.3 [facility] Comment on above: Order Comment: RESUL TS CHECKED AND CALLED. ACCURATELY READ BACK BY Jina TAVAREZ ED, RN Performed By: #### 8 4511 #### [facility] [address] [place] [address], [place] Chloride [Moles/Vol] 106 mmol/L Normal 98-107 The [facility] Comment on above: Order Comment: RESUL TS CHECKED AND CALLED. ACCURATELY READ BACK BY Jina TAVAREZ ED RN Performed By: #### 8 4511 #### [facility] [address] [place] [address], [facility] CO2 [Moles/Vol] 29 mmol/L Normal 21-31 The [facility] Comment on above: Order Comment: RESUL TS CHECKED AND CALLED. ACCURATELY READ BACK BY Jina TAVAREZ ED RN Performed By: #### 8 4511 #### [facility] [address] [place] [address], [facility] Creatinine [Mass/Vol] 1.04 mg/dL Normal 0.60-1.20 [facility] Comment on above: Order Comment: RESUL TS CHECKED AND CALLED. ACCURATELY READ BACK BY Jina TAVAREZ ED RN Performed By: #### 8 4511 #### [facility] [address] [place] [address], [facility] GFR/1.73 sq M.predicted among non-blacks MDRD (S/P/Bld) [Vol rate/Area] mL/min/{1.73_m2} Normal >60 The [facility] Comment on above: Order Comment: RESUL TS CHECKED AND CALLED. ACCURATELY READ BACK BY Jina TAVAREZ ED, RN Result Comment: The [facility]'s estimated glomerular filtration rate (eGFR) will no longer include consideration of race in its calculation. The National Kidney Foundation's eGFR Task Force developed new recommendations for the estimation of the glomerular filtration rate in the [place] They recommend immediate implementation of the new equation refit without the race variable in all laboratories because the calculation does not include race. In addition to not including race in the calculation and reporting, it included diversity in its development, and has acceptable performance characteristics and potential consequences that do not disproportionately affect any one group of individuals. Performed By: #### 8 4511 #### [facility] [address] [facility] [place] [address], [facility] Glucose [Mass/Vol] 124 mg/dL High 70-100 [facility] Comment on above: Order Comment: RESUL TS CHECKED AND CALLED. ACCURATELY READ BACK BY Jina TAVAREZ ED, RN Performed By: #### 8 4511 #### [facility] [address] Potassium [Moles/Vol] 3.3 mmol/L Low 3.5-5.1 The [facility] Comment on above: Order Comment: RESUL TS CHECKED AND CALLED. ACCURATELY READ BACK BY Jina TAVAREZ ED RN Performed By: #### 8 4511 #### [facility] [address] [facility] Sodium [Moles/Vol] 145 mmol/L Normal 136-145 [facility] Comment on above: Order Comment: RESUL TS CHECKED AND CALLED. ACCURATELY READ BACK BY Jina TAVAREZ ED RN Performed By: #### 8 4511 #### [facility] [address] Urea nitrogen [Mass/Vol] 15 mg/dL Normal 7-25 The [facility] Comment on above: Order Comment: RESUL TS CHECKED AND CALLED. ACCURATELY READ BACK BY Jina TAVAREZ ED RN Performed By: #### 8 4511 #### [facility] [address] CBC W/DIFFon 11-23-2021 ABS IMM GRANS 0.0 10*3/uL Normal 0.0-0.2 The [facility] Comment on above: Order Comment: No: D o not add to previous draw Performed By: #### 8 4511 #### [facility] [address] [place] [address], [facility] ABS NEUTROPHILS 4.5 10*3/uL Normal 1.6-7.6 The [facility] Comment on above: Order Comment: No: D o not add to previous draw Performed By: #### 8 4511 #### [facility] [address] [place] [address], [facility] Basophils (Bld) [#/Vol] 0.0 10*3/uL Normal 0.0-0.2 The [facility] Comment on above: Order Comment: No: D o not add to previous draw Performed By: #### 8 4511 #### [facility] [address] [place] [address], [place] Basophils/100 WBC (Bld) 0.6 % Normal 0.0-1.0 The [facility] Comment on above: Order Comment: No: D o not add to previous draw Performed By: #### 8 4511 #### [facility] [address] [place] [address], [place] Eosinophils (Bld) [#/Vol] 0.1 10*3/uL Normal 0.0-0.5 The [facility] Comment on above: Order Comment: No: D o not add to previous draw Performed By: #### 8 4511 #### [facility] [address] [place] [address], [facility] Eosinophils/100 WBC (Bld) 1.7 % Normal 0.0-6.0 The [facility] Comment on above: Order Comment: No: D o not add to previous draw Performed By: #### 8 4511 #### [facility] [address] [place] [address], [facility] Erythrocyte distribution width (RBC) [Ratio] 14.4 % Normal 11.5-15.0 The [facility] Comment on above: Order Comment: No: D o not add to previous draw Performed By: #### 8 4511 #### [facility] [address] [place] [address], [place] Hematocrit (Bld) [Volume fraction] 32.1 % Low 36.0-45.0 [facility] Comment on above: Order Comment: No: D o not add to previous draw Performed By: #### 8 4511 #### [facility] [address] [place] [address], [place] Hemoglobin (Bld) [Mass/Vol] 10.5 g/dL Low 12.0-15.0 The [facility] Comment on above: Order Comment: No: D o not add to previous draw Performed By: #### 8 4511 #### [facility] [address] [place] [address], [facility] IMMATURE GRANS 0.5 % Normal 0.0-1.0 [facility] Comment on above: Order Comment: No: D o not add to previous draw Performed By: #### 8 4511 #### [facility] [address] [place] [address], [facility] Lymphocytes (Bld) [#/Vol] 1.1 10*3/uL Low 1.2-4.0 The [facility] Comment on above: Order Comment: No: D o not add to previous draw Performed By: #### 8 4511 #### [facility] [address] [place] [address], [facility] Lymphocytes/100 WBC (Bld) 17.4 % Low 20.0-45.0 The [facility] Comment on above: Order Comment: No: D o not add to previous draw Performed By: #### 8 4511 #### [facility] [address] [place] [address], [facility] MCH (RBC) [Entitic mass] 31.8 pg Normal 27.0-33.0 The [facility] Comment on above: Order Comment: No: D o not add to previous draw Performed By: #### 8 4511 #### [facility] [address] [place] [address], [facility] MCHC (RBC) [Mass/Vol] 32.7 g/dL Normal 32.0-35.0 The [facility] Comment on above: Order Comment: No: D o not add to previous draw Performed By: #### 8 4511 #### [facility] [address] [place] [address], [facility] MCV (RBC) [Entitic vol] 97.3 fL Normal 82.0-98.0 The [facility] Comment on above: Order Comment: No: D o not add to previous draw Performed By: #### 8 4511 #### [facility] [address] [place] [address], [facility] Monocytes (Bld) [#/Vol] 0.7 10*3/uL Normal 0.1-1.0 The [facility] Comment on above: Order Comment: No: D o not add to previous draw Performed By: #### 8 4511 #### [facility] [address] [place] [id number], [facility] MONOS 10.5 % Normal 5.0-12.0 The [facility] Comment on above: Order Comment: No: D o not add to previous draw Performed By: #### 8 4511 #### [facility] [address] [place] [address], [facility] Neutrophils/100 WBC (Bld) 69.3 % Normal 40.0-72.0 The [facility] Comment on above: Order Comment: No: D o not add to previous draw Performed By: #### 8 4511 #### [facility] [address] [place] [address], [facility] Nucleated RBC/100 WBC (Bld) [Ratio] 0 % Normal 0-0 The [facility] Comment on above: Order Comment: No: D o not add to previous draw Performed By: #### 8 4511 #### [facility] [address] [place] [id number], [place] PLAT CNT 146 10*3/uL Low 150-[address] [facility] Comment on above: Order Comment: No: D o not add to previous draw Performed By: #### 8 4511 #### [facility] [address] [place] [id number], [facility] RBC (Bld) [#/Vol] 3.30 10*6/uL Low 3.80-5.00 The [facility] Comment on above: Order Comment: No: D o not add to previous draw Performed By: #### 8 4511 #### [facility] [address] [place] [address], [place] WBC (Bld) [#/Vol] 6.48 10*3/uL Normal 4.00-10.60 The [facility] Comment on above: Order Comment: No: D o not add to previous draw Performed By: #### 8 4511 #### [facility] [address] [place] [address], [place] MAGNESIUM BLOODon 11-23-2021 Magnesium [Mass/Vol] 1.8 mg/dL Low 1.9-2.7 The [facility] Comment on above: Order Comment: RESUL TS CHECKED AND CALLED. ACCURATELY READ BACK BY Jina TAVAREZ ED, RN Performed By: #### 8 4511 #### [facility] [address] [place] [address], [place] POC GLUCOSE LABon 11-23-2021 Glucose [Mass/Vol] 175 mg/dL High 70-100 [facility] Comment on above: Performed By: #### 8 5499 ####[facility] [place] [address], [place] Glucose [Mass/Vol] 148 mg/dL High 70-100 [facility] Comment on above: Performed By: #### 8 4511 #### [facility] [address] [place] [address], [place] Glucose [Mass/Vol] 115 mg/dL High 70-100 [facility] Comment on above: Performed By: #### 8 5499 #### [facility] [address] [place] [address], [place] Glucose [Mass/Vol] 123 mg/dL High 70-100 [facility] Comment on above: Performed By: #### 8 5499 #### [facility] [address] [place] [address], [place] PORTABLE CHEST 1 VIEWon 080 4-2022 PORTABLE CHEST 1 VIEW [facility] Department of Radiology [address] [place] [address] Patient Name: RAQUEL VILA : 1965 Sex: F Age: Race: White Pt. Location: [place] [address] Patient Status: I Ordered Date: 11/23/2021 12:10:00 PM Completed Date: 11/23/2021 12:54 PM Requesting Provider: ESTHELA HOOD Attending Provider: REMINGTON NOLAN Report Copy To: Signs & Symptoms: Shortness of Breath History: Comments: Atelectasis Exam: PORTABLE CHEST 1 VIEW PORTABLE CHEST 1 VIEW 11/23/2021 12:54 PM CLINICAL INDICATIONS: Shortness of Breath TECHNOLOGIST COMMENTS: Shortness of Breath QUESTION FOR THE RADIOLOGIST: Atelectasis PROTOCOL: AP(PA) view was obtained. COMPARISON: 11/20/2021 IMPRESSION: Has been extubated. Appearance of the lungs is improved. No new airspace disease or infiltrate. Vasculature appears more distinct. No large effusion. Elevation of the right hemidiaphragm is noted in likely chronic. No acute process Electronically signed: Maggie Lynne. Transcribed by: [email or web address], User Resident: Electronically Signed by: MAGGIE LYNNE @ 11/23/2021 01:05 PM Normal [facility] Comment on above: Order Comment: Atele ctasis ARTERIAL BLOOD GAS WITH ICAo n 11-22-2021 BASE EXCESS 2 mmol/L Normal -2-3 [facility] Comment on above: Performed By: #### 8 4511 #### [facility] [address] [place] [address], [facility] DELIVERY SYSTEMS VENTILATOR Normal [facility] Comment on above: Performed By: #### 8 4511 #### [facility] [address] [place] [address], [place] FIO2 40 % Normal [facility] Comment on above: Performed By: #### 8 4511 #### [facility] [address] [place] [address], [facility] HCO3 (Bld) [Moles/Vol] 27 mmol/L Normal 21-28 The [facility] Comment on above: Performed By: #### 8 4511 #### [facility] [address] [place] [address], [facility] IONIZED CALCIUM 1.16 mmol/L Normal 1.13-1.32 The [facility] Comment on above: Performed By: #### 8 4511 #### [facility] [address] [place] [address], [place] MIN VOLUME 8.1 Normal [facility] Comment on above: Performed By: #### 8 4511 #### [facility] [address] [place] [address], [facility] MODALITY AC-ASSIST CONTROL Normal The [facility] Comment on above: Performed By: #### 8 4511 #### [facility] [address] [place] [address], [place] Oxygen (Bld) [Partial pressure] 85 mm[Hg] Normal 83-108 [facility] Comment on above: Performed By: #### 8 4511 #### [facility] [address] [place] [address], [place] Oxygen saturation in Blood 97.0 % Normal 94.0-97.0 [facility] Comment on above: Performed By: #### 8 4511 #### [facility] [address] [place] [address], [place] PCO2 40 mmHg Normal 35-45 [facility] Comment on above: Performed By: #### 8 4511 #### [facility] [address] [place] [address], [place] PEEP 8.0 CMH20 Normal [facility] Comment on above: Performed By: #### 8 4511 #### [facility] [address] [place] [address], [place] PF RATIO 215 mmHg Normal [facility] Comment on above: Performed By: #### 8 4511 #### [facility] [address] [place] [address], [place] pH (Bld) 7.43 [pH] Normal 7.35-7.45 [facility] Comment on above: Performed By: #### 8 4511 #### [facility] [address] [place] [address], [place] Respiratory rate 18 /min Normal [facility] Comment on above: Performed By: #### 8 4511 #### [facility] [address] [place] [address], [place] TIDAL VOLUME (VT) CC 450 Normal [facility] Comment on above: Performed By: #### 8 4511 #### [facility] [address] [place] [address], [place] CBC COMPLETE BLOOD COUNTon 0 11-22-2021 Erythrocyte distribution width (RBC) [Ratio] 14.6 % Normal 11.5-15.0 The [facility] Comment on above: Order Comment: No: D o not add to previous draw Performed By: #### 8 4511 #### [facility] [address] [place] [address], [place] Hematocrit (Bld) [Volume fraction] 32.0 % Low 36.0-45.0 [facility] Comment on above: Order Comment: No: D o not add to previous draw Performed By: #### 8 4511 #### [facility] [address] [place] [id number], [facility] Hemoglobin (Bld) [Mass/Vol] 10.6 g/dL Low 12.0-15.0 The [facility] Comment on above: Order Comment: No: D o not add to previous draw Performed By: #### 8 4511 #### [facility] [address] [place] [address], [facility] MCH (RBC) [Entitic mass] 31.6 pg Normal 27.0-33.0 [facility] Comment on above: Order Comment: No: D o not add to previous draw Performed By: #### 8 4511 #### [facility] [address] [place] [address], [facility] MCHC (RBC) [Mass/Vol] 33.1 g/dL Normal 32.0-35.0 [facility] Comment on above: Order Comment: No: D o not add to previous draw Performed By: #### 8 4511 #### [facility] [address] [place] [address], [facility] MCV (RBC) [Entitic vol] 95.5 fL Normal 82.0-98.0 The [facility] Comment on above: Order Comment: No: D o not add to previous draw Performed By: #### 8 4511 #### [facility] [address] [facility] [place] [address], [facility] Nucleated RBC/100 WBC (Bld) [Ratio] 0 % Normal 0-0 The [facility] Comment on above: Order Comment: No: D o not add to previous draw Performed By: #### 8 4511 #### [facility] [address] [place] [address], [facility] PLAT CNT 147 10*3/uL Low 150-[address] [facility] Comment on above: Order Comment: No: D o not add to previous draw Performed By: #### 8 4511 #### [facility] [address] [place] [address], [facility] RBC (Bld) [#/Vol] 3.35 10*6/uL Low 3.80-5.00 The [facility] Comment on above: Order Comment: No: D o not add to previous draw Performed By: #### 8 4511 #### [facility] [address] [place] [address], [place] WBC (Bld) [#/Vol] 7.77 10*3/uL Normal 4.00-10.60 The [facility] Comment on above: Order Comment: No: D o not add to previous draw Performed By: #### 8 4511 #### [facility] [address] [place] [address], [facility] COMP METABOLIC PANELon 11-22 Albumin [Mass/Vol] 3.4 g/dL Low 3.5-5.7 [facility] Comment on above: Order Comment: No: D o not add to previous draw Performed By: #### 8 4511 #### [facility] [address] [place] [address], [facility] ALKALINE PHOSPH 134 IU/L High 34-104 The [facility] Comment on above: Order Comment: No: D o not add to previous draw Performed By: #### 8 4511 #### [facility] [address] [place] [address], [place] ALT [Catalytic activity/Vol] 400 U/L Critically high 7-52 The [facility] Comment on above: Order Comment: No: D o not add to previous draw Performed By: #### 8 4511 #### [facility] [address] [place] [address], [place] AST [Catalytic activity/Vol] 306 U/L High 13-39 The [facility] Comment on above: Order Comment: No: D o not add to previous draw Performed By: #### 8 4511 #### [facility] [address] [place] [address], [place] Bilirubin [Mass/Vol] 0.4 mg/dL Normal 0.3-1.0 The [facility] Comment on above: Order Comment: No: D o not add to previous draw Performed By: #### 8 4511 #### [facility] [address] [place] [address], [place] Calcium [Mass/Vol] 8.4 mg/dL Low 8.6-10.3 The [facility] Comment on above: Order Comment: No: D o not add to previous draw Performed By: #### 8 4511 #### [facility] [address] [place] [address], [place] Chloride [Moles/Vol] 109 mmol/L High 98-107 The [facility] Comment on above: Order Comment: No: D o not add to previous draw Performed By: #### 8 4511 #### [facility] [address] [place] [address], [place] CO2 [Moles/Vol] 25 mmol/L Normal 21-31 The [facility] Comment on above: Order Comment: No: D o not add to previous draw Performed By: #### 8 4511 #### [facility] [address] [place] [address], [place] Creatinine [Mass/Vol] 1.34 mg/dL High 0.60-1.20 The [facility] Comment on above: Order Comment: No: D o not add to previous draw Performed By: #### 8 4511 #### [facility] [address] [place] [address], [place] EGFR 47 ml/min/1.73sq m Abnormal >60 The [facility] Comment on above: Order Comment: No: D o not add to previous draw Result Comment: The [facility]'s estimated glomerular filtration rate (eGFR) will no longer include consideration of race in its calculation. The National Kidney Foundation's eGFR Task Force developed new recommendations for the estimation of the glomerular filtration rate in the [place] They recommend immediate implementation of the new equation refit without the race variable in all laboratories because the calculation does not include race. In addition to not including race in the calculation and reporting, it included diversity in its development, and has acceptable performance characteristics and potential consequences that do not disproportionately affect any one group of individuals. Performed By: #### 8 4511 #### [facility] [address] [place] [address], [place] Glucose [Mass/Vol] 100 mg/dL Normal 70-100 The [facility] Comment on above: Order Comment: No: D o not add to previous draw Performed By: #### 8 4511 #### [facility] [address] [place] [address], [place] Potassium [Moles/Vol] 3.2 mmol/L Low 3.5-5.1 The [facility] Comment on above: Order Comment: No: D o not add to previous draw Performed By: #### 8 4511 #### [facility] [address] [place] [address], [place] Protein [Mass/Vol] 5.5 g/dL Low 6.0-8.3 [facility] Comment on above: Order Comment: No: D o not add to previous draw Performed By: #### 8 4511 #### [facility] [address] [place] [address], [place] Sodium [Moles/Vol] 144 mmol/L Normal 136-145 The [facility] Comment on above: Order Comment: No: D o not add to previous draw Performed By: #### 8 4511 #### [facility] [address] [place] [address], [place] Urea nitrogen [Mass/Vol] 21 mg/dL Normal 7-25 The [facility] Comment on above: Order Comment: No: D o not add to previous draw Performed By: #### 8 4511 #### [facility] [address] [place] [address], [facility] MAGNESIUM BLOODon 11-22-2021 Magnesium [Mass/Vol] 1.9 mg/dL Normal 1.9-2.7 The [facility] Comment on above: Order Comment: No: D o not add to previous draw Performed By: #### 8 4511 #### [facility] [address] [place] [address], [facility] PHOSPHORUS BLOODon Phosphate [Mass/Vol] 3.3 mg/dL Normal 2.5-5.0 The [facility] Comment on above: Order Comment: No: D o not add to previous draw Performed By: #### 8 4511 #### [facility] [address] [place] [address], [facility] POC GLUCOSE LABon 11-22-2021 Glucose [Mass/Vol] 140 mg/dL High 70-100 The [facility] Comment on above: Performed By: #### 8 5499 #### [facility] [address] [place] [address], [place] Glucose [Mass/Vol] 160 mg/dL High 70-100 The [facility] Comment on above: Performed By: #### 8 5499 #### [facility] [address] [place] [place] [address], [facility] Glucose [Mass/Vol] 86 mg/dL Normal 70-100 The [facility] Comment on above: Performed By: #### 8 4511 #### [facility] [address] [facility] [place] [address], [facility] *BLOOD CULTUREon 11-21-2021 *BLOOD CULTURE Clinical Report: (D) Specimen: BLOOD CULTURE Collected: 11/21/2021 00:17 Status: Final Last Updated: 11/26/2021 06:23 CULT RES (Final) No Growth Day 5 Normal [facility] Comment on above: Performed By: #### 8 [id number] #### [facility] [address] [place] [address], [facility] Performed By: #### 8 4511 #### [facility] [address] [place] [address], [facility] ARTERIAL BLOOD GAS WITH ICAo n 11-21-2021 BASE EXCESS -1 mmol/L Normal -2-3 [facility] Comment on above: Performed By: #### 8 5499 #### [facility] [address] [place] [address], [facility] DELIVERY SYSTEMS VENTILATOR Normal [facility] Comment on above: Performed By: #### 8 5499 #### [facility] [address] [place] [address], [facility] FIO2 70 % Normal [facility] Comment on above: Performed By: #### 8 5499 #### [facility] [address] [place] [address], [facility] HCO3 (Bld) [Moles/Vol] 24 mmol/L Normal 21-28 [facility] Comment on above: Performed By: #### 8 [id number] #### [facility] [address] [place] [address], [facility] IONIZED CALCIUM 1.17 mmol/L Normal 1.13-1.32 The [facility] Comment on above: Performed By: #### 8 5499 #### [facility] [address] [place] [address], [place] MIN VOLUME 11.0 Normal [facility] Comment on above: Performed By: #### 8 5499 #### [facility] [address] [place] [address], [place] MODALITY AC VC Normal [facility] Comment on above: Performed By: #### 8 5499 #### [facility] [address] [place] [address], [facility] Oxygen (Bld) [Partial pressure] 191 mm[Hg] Critically high 83-108 The [facility] Comment on above: Performed By: #### 8 5499 #### [facility] [address] [place] [address], [place] Oxygen saturation in Blood 97.8 % High 94.0-97.0 The [facility] Comment on above: Performed By: #### 8 5499 #### [facility] [address] [place] [address], [facility] PCO2 39 mmHg Normal 35-45 The [facility] Comment on above: Performed By: #### 8 5499 #### [facility] [address] [place] [address], [facility] PEEP 10.0 CMH20 Normal The [facility] Comment on above: Performed By: #### 8 5499 #### [facility] [address] [place] [address], [facility] pH (Bld) 7.40 [pH] Normal 7.35-7.45 The [facility] Comment on above: Performed By: #### 8 5499 #### [facility] [address] [place] [address], [place] Respiratory rate 24 /min Normal [facility] Comment on above: Performed By: #### 8 5499 #### [facility] [address] [place] [address], [place] TIDAL VOLUME (VT) CC 450 Normal [facility] Comment on above: Performed By: #### 8 5499 #### [facility] [address] [place] [address], [facility] BASIC METABOLIC PANELon 08-0 Calcium [Mass/Vol] 9.3 mg/dL Normal 8.6-10.3 [facility] Comment on above: Order Comment: RESUL TS CHECKED AND CALLED. ACCURATELY READ BACK BY Jina TAVAREZ ED RN Performed By: #### 8 4511 #### [facility] [address] [place] [address], [facility] Chloride [Moles/Vol] 106 mmol/L Normal 98-107 The [facility] Comment on above: Order Comment: RESUL TS CHECKED AND CALLED. ACCURATELY READ BACK BY Jina TAVAREZ ED RN Performed By: #### 8 4511 #### [facility] [address] CO2 [Moles/Vol] 25 mmol/L Normal 21-31 [facility] Comment on above: Order Comment: RESUL TS CHECKED AND CALLED. ACCURATELY READ BACK BY Jina TAVAREZ ED RN Performed By: #### 8 4511 #### [address] Creatinine [Mass/Vol] 1.68 mg/dL High 0.60-1.20 [facility] Comment on above: Order Comment: RESUL TS CHECKED AND CALLED. ACCURATELY READ BACK BY Jina TAVAREZ ED RN Performed By: #### 8 4511 #### [facility] [address] EGFR 36 ml/min/1.73sq m Abnormal >60 [facility] Comment on above: Order Comment: RESUL TS CHECKED AND CALLED. ACCURATELY READ BACK BY Jina TAVAREZ ED RN Result Comment: The [facility]'s estimated glomerular filtration rate (eGFR) will no longer include consideration of race in its calculation. The National Kidney Foundation's eGFR Task Force developed new recommendations for the estimation of the glomerular filtration rate in the [place] They recommend immediate implementation of the new equation refit without the race variable in all laboratories because the calculation does not include race. In addition to not including race in the calculation and reporting, it included diversity in its development, and has acceptable performance characteristics and potential consequences that do not disproportionately affect any one group of individuals. Performed By: #### 8 4511 #### [facility] [address] [place] [address], [facility] Glucose [Mass/Vol] 201 mg/dL High 70-100 [facility] Comment on above: Order Comment: RESUL TS CHECKED AND CALLED. ACCURATELY READ BACK BY Jina TAVAREZ ED RN Performed By: #### 8 4511 #### [facility] [address] [place] [address], [facility] Potassium [Moles/Vol] 3.7 mmol/L Normal 3.5-5.1 The [facility] Comment on above: Order Comment: RESUL TS CHECKED AND CALLED. ACCURATELY READ BACK BY Jina TAVAREZ ED RN Performed By: #### 8 4511 #### [facility] [address] [place] [address], [facility] Sodium [Moles/Vol] 141 mmol/L Normal 136-145 The [facility] Comment on above: Order Comment: RESUL TS CHECKED AND CALLED. ACCURATELY READ BACK BY Jina TAVAREZ ED RN Performed By: #### 8 4511 #### [facility] [address] [place] [address], [facility] Urea nitrogen [Mass/Vol] 28 mg/dL High 7-25 The [facility] Comment on above: Order Comment: RESUL TS CHECKED AND CALLED. ACCURATELY READ BACK BY Jina TAVAREZ ED RN Performed By: #### 8 4511 #### [facility] [address] BETA HYDROXYBUTYRATEon 11-21 BETA HYDROXYBUTYRATE 0.21 mmol/L Normal 0.02-0.27 The [facility] Comment on above: Performed By: #### 8 4511 #### [facility] [address] [place] [address], [facility] CBC W/DIFFon 11-21-2021 ABS IMM GRANS 0.1 10*3/uL Normal 0.0-0.2 The [facility] Comment on above: Order Comment: No: D o not add to previous draw Performed By: #### 8 4511 #### [facility] [address] [place] [address], [facility] ABS NEUTROPHILS 9.5 10*3/uL High 1.6-7.6 The [facility] Comment on above: Order Comment: No: D o not add to previous draw Performed By: #### 8 4511 #### [facility] [address] [place] [address], [place] Basophils (Bld) [#/Vol] 0.0 10*3/uL Normal 0.0-0.2 The [facility] Comment on above: Order Comment: No: D o not add to previous draw Performed By: #### 8 4511 #### [facility] [address] [place] [address], [facility] Basophils/100 WBC (Bld) 0.3 % Normal 0.0-1.0 The [facility] Comment on above: Order Comment: No: D o not add to previous draw Performed By: #### 8 4511 #### [facility] [address] [place] [address], [facility] Eosinophils (Bld) [#/Vol] 0.0 10*3/uL Normal 0.0-0.5 The [facility] Comment on above: Order Comment: No: D o not add to previous draw Performed By: #### 8 4511 #### [facility] [address] [place] [id number], [facility] Eosinophils/100 WBC (Bld) 0.0 % Normal 0.0-6.0 The [facility] Comment on above: Order Comment: No: D o not add to previous draw Performed By: #### 8 4511 #### [facility] [address] [place] [address], [place] Erythrocyte distribution width (RBC) [Ratio] 14.3 % Normal 11.5-15.0 The [facility] Comment on above: Order Comment: No: D o not add to previous draw Performed By: #### 8 4511 #### [facility] [address] [place] [id number], [facility] Hematocrit (Bld) [Volume fraction] 38.8 % Normal 36.0-45.0 The [facility] Comment on above: Order Comment: No: D o not add to previous draw Performed By: #### 8 4511 #### [facility] [address] [place] [address], [facility] Hemoglobin (Bld) [Mass/Vol] 13.0 g/dL Normal 12.0-15.0 The [facility] Comment on above: Order Comment: No: D o not add to previous draw Performed By: #### 8 4511 #### [facility] [address] [place] [address], [facility] IMMATURE GRANS 1.1 % High 0.0-1.0 The [facility] lauren [facility] Comment on above: Order Comment: No: D o not add to previous draw Performed By: #### 8 4511 #### [facility] [address] [place] [id number], [facility] Lymphocytes (Bld) [#/Vol] 0.9 10*3/uL Low 1.2-4.0 The [facility] Comment on above: Order Comment: No: D o not add to previous draw Performed By: #### 8 4511 #### [facility] [address] [place] [id number], [facility] Lymphocytes/100 WBC (Bld) 8.2 % Low 20.0-45.0 The [facility] Comment on above: Order Comment: No: D o not add to previous draw Performed By: #### 8 4511 #### [facility] [address] [place] [id number], [facility] MCH (RBC) [Entitic mass] 31.3 pg Normal 27.0-33.0 The [facility] Comment on above: Order Comment: No: D o not add to previous draw Performed By: #### 8 4511 #### [facility] [address] [place] [address], [facility] MCHC (RBC) [Mass/Vol] 33.5 g/dL Normal 32.0-35.0 The [facility] Comment on above: Order Comment: No: D o not add to previous draw Performed By: #### 8 4511 #### [facility] [address] [place] [address], [facility] MCV (RBC) [Entitic vol] 93.3 fL Normal 82.0-98.0 The [facility] Comment on above: Order Comment: No: D o not add to previous draw Performed By: #### 8 4511 #### [facility] [address] [place] [address], [facility] Monocytes (Bld) [#/Vol] 1.0 10*3/uL Normal 0.1-1.0 The [facility] Comment on above: Order Comment: No: D o not add to previous draw Performed By: #### 8 4511 #### [facility] [address] [place] [address], [facility] MONOS 8.3 % Normal 5.0-12.0 The [facility] Comment on above: Order Comment: No: D o not add to previous draw Performed By: #### 8 4511 #### [facility] [address] [place] [address], [facility] Neutrophils/100 WBC (Bld) 82.1 % High 40.0-72.0 The [facility] Comment on above: Order Comment: No: D o not add to previous draw Performed By: #### 8 4511 #### [facility] [address] [place] [address], [facility] Nucleated RBC/100 WBC (Bld) [Ratio] 0 % Normal 0-0 The [facility] Comment on above: Order Comment: No: D o not add to previous draw Performed By: #### 8 4511 #### [facility] [address] [place] [address], [facility] PLAT CNT 176 10*3/uL Normal 150-[address] [facility] Comment on above: Order Comment: No: D o not add to previous draw Performed By: #### 8 4511 #### [facility] [address] [place] [id number], [facility] RBC (Bld) [#/Vol] 4.16 10*6/uL Normal 3.80-5.00 The [facility] Comment on above: Order Comment: No: D o not add to previous draw Performed By: #### 8 4511 #### [facility] [address] [place] [address], [facility] WBC (Bld) [#/Vol] 11.53 10*3/uL High 4.00-10.60 [facility] Comment on above: Order Comment: No: D o not add to previous draw Performed By: #### 8 4511 #### [facility] [address] [place] [address], [facility] ABS IMM GRANS 0.2 10*3/uL Normal 0.0-0.2 The [facility] Comment on above: Order Comment: Yes: Add to Previous draw if able Performed By: #### 8 5499 #### [facility] [address] [place] [address], [facility] ABS NEUTROPHILS 12.0 10*3/uL High 1.6-7.6 The [facility] Comment on above: Order Comment: Yes: Add to Previous draw if able Performed By: #### 8 5499 #### [facility] [address] [place] [address], [facility] Basophils (Bld) [#/Vol] 0.0 10*3/uL Normal 0.0-0.2 The [facility] Comment on above: Order Comment: Yes: Add to Previous draw if able Performed By: #### 8 5499 #### [facility] [address] [place] [address], [facility] Basophils/100 WBC (Bld) 0.2 % Normal 0.0-1.0 The [facility] Comment on above: Order Comment: Yes: Add to Previous draw if able Performed By: #### 8 5499 #### [facility] [address] [place] [address], [place] Eosinophils (Bld) [#/Vol] 0.0 10*3/uL Normal 0.0-0.5 The [facility] Comment on above: Order Comment: Yes: Add to Previous draw if able Performed By: #### 8 5499 #### [facility] [address] [place] [address], [facility] Eosinophils/100 WBC (Bld) 0.1 % Normal 0.0-6.0 The [facility] Comment on above: Order Comment: Yes: Add to Previous draw if able Performed By: #### 8 [id number] #### [facility] [address] [place] [address], [facility] Erythrocyte distribution width (RBC) [Ratio] 14.5 % Normal 11.5-15.0 The [facility] Comment on above: Order Comment: Yes: Add to Previous draw if able Performed By: #### 8 [id number] #### [facility] [address] [place] [address], [place] Hematocrit (Bld) [Volume fraction] 40.6 % Normal 36.0-45.0 The [facility] Comment on above: Order Comment: Yes: Add to Previous draw if able Performed By: #### 8 [id number] #### [facility] [address] [place] [address], [place] Hemoglobin (Bld) [Mass/Vol] 13.3 g/dL Normal 12.0-15.0 [facility] [facility] Comment on above: Order Comment: Yes: Add to Previous draw if able Performed By: #### 8 [id number] #### [facility] [address] [place] [address], [facility] IMMATURE GRANS 1.7 % High 0.0-1.0 The [facility] Comment on above: Order Comment: Yes: Add to Previous draw if able Performed By: #### 8 [id number] #### [facility] [address] [place] [address], [facility] Lymphocytes (Bld) [#/Vol] 0.6 10*3/uL Low 1.2-4.0 The [facility] Comment on above: Order Comment: Yes: Add to Previous draw if able Performed By: #### 8 [id number] #### [facility] [address] [facility] [place] [address], [facility] Lymphocytes/100 WBC (Bld) 4.2 % Low 20.0-45.0 The [facility] Comment on above: Order Comment: Yes: Add to Previous draw if able Performed By: #### 8 [id number] #### [facility] [address] [place] [address], [facility] MCH (RBC) [Entitic mass] 31.4 pg Normal 27.0-33.0 The [facility] Comment on above: Order Comment: Yes: Add to Previous draw if able Performed By: #### 8 [id number] #### [facility] [address] [place] [place] [address], [facility] MCHC (RBC) [Mass/Vol] 32.8 g/dL Normal 32.0-35.0 The [facility] Comment on above: Order Comment: Yes: Add to Previous draw if able Performed By: #### 8 [id number] #### [facility] [address] [facility] [place] [address], [facility] MCV (RBC) [Entitic vol] 95.8 fL Normal 82.0-98.0 The [facility] Comment on above: Order Comment: Yes: Add to Previous draw if able Performed By: #### 8 [id number] #### [facility] [address] [place] [address], [facility] Monocytes (Bld) [#/Vol] 0.8 10*3/uL Normal 0.1-1.0 The [facility] Comment on above: Order Comment: Yes: Add to Previous draw if able Performed By: #### 8 [id number] #### [facility] [address] [place] [address], [place] MONOS 5.8 % Normal 5.0-12.0 The [facility] Comment on above: Order Comment: Yes: Add to Previous draw if able Performed By: #### 8 [id number] #### [facility] [address] [place] [address], [place] Neutrophils/100 WBC (Bld) 88.0 % High 40.0-72.0 The [facility] Comment on above: Order Comment: Yes: Add to Previous draw if able Performed By: #### 8 [id number] #### [facility] [address] [place] [address], [place] Nucleated RBC/100 WBC (Bld) [Ratio] 0 % Normal 0-0 The [facility] Comment on above: Order Comment: Yes: Add to Previous draw if able Performed By: #### 8 [id number] #### [facility] [address] [place] [address], [place] PLAT CNT 163 10*3/uL Normal 150-[address] [facility] Comment on above: Order Comment: Yes: Add to Previous draw if able Performed By: #### 8 [id number] #### [facility] [address] [place] [address], [place] RBC (Bld) [#/Vol] 4.24 10*6/uL Normal 3.80-5.00 The [facility] Comment on above: Order Comment: Yes: Add to Previous draw if able Performed By: #### 8 [id number] #### [facility] [address] [place] [address], [place] WBC (Bld) [#/Vol] 13.68 10*3/uL High 4.00-10.60 The [facility] Comment on above: Order Comment: Yes: Add to Previous draw if able Performed By: #### 8 [id number] #### [facility] [address] [place] [address], [facility] COMP METABOLIC PANELon 11-21 Albumin [Mass/Vol] 4.1 g/dL Normal 3.5-5.7 The [facility] Comment on above: Performed By: #### 8 4511 #### [facility] [address] [place] [address], [facility] ALKALINE PHOSPH 196 IU/L High 34-104 The [facility] Comment on above: Performed By: #### 8 4511 #### [facility] [address] [place] [address], [place] ALT [Catalytic activity/Vol] 560 U/L Critically high 7-52 The [facility] Comment on above: Performed By: #### 8 4511 #### [facility] [address] [place] [address], [facility] AST [Catalytic activity/Vol] 852 U/L High 13-39 The [facility] Comment on above: Performed By: #### 8 4511 #### [facility] [address] [place] [address], [facility] Bilirubin [Mass/Vol] 0.9 mg/dL Normal 0.3-1.0 The [facility] Comment on above: Performed By: #### 8 4511 #### [facility] [address] [place] [address], [facility] Calcium [Mass/Vol] 8.9 mg/dL Normal 8.6-10.3 The [facility] Comment on above: Performed By: #### 8 4511 #### [facility] [address] [place] [address], [place] Chloride [Moles/Vol] 101 mmol/L Normal 98-107 The [facility] Comment on above: Performed By: #### 8 4511 #### [facility] [address] [place] [address], [facility] CO2 [Moles/Vol] 22 mmol/L Normal 21-31 [facility] Comment on above: Performed By: #### 8 4511 #### [facility] [address] [place] [address], [facility] Creatinine [Mass/Vol] 1.90 mg/dL High 0.60-1.20 The [facility] Comment on above: Performed By: #### 8 4511 #### [facility] [address] [place] [address], [facility] EGFR 31 ml/min/1.73sq m Abnormal >60 The [facility] Comment on above: Result Comment: The [facility]'s estimated glomerular filtration rate (eGFR) will no longer include consideration of race in its calculation. The National Kid[employer] Foundation's eGFR Task Force developed new recommendations for the estimation of the glomerular filtration rate in the [place] They recommend immediate implementation of the new equation refit without the race variable in all laboratories because the calculation does not include race. In addition to not including race in the calculation and reporting, it included diversity in its development, and has acceptable performance characteristics and potential consequences that do not disproportionately affect any one group of individuals. Performed By: #### 8 [id number] #### [facility] [address] [place] [address], [facility] Glucose [Mass/Vol] 436 mg/dL High 70-100 The [facility] Comment on above: Performed By: #### 8 4511 #### [facility] [address] [place] [address], [facility] Potassium [Moles/Vol] 4.4 mmol/L Normal 3.5-5.1 The [facility] Comment on above: Performed By: #### 8 4511 #### [facility] [address] [place] [address], [facility] Protein [Mass/Vol] 6.9 g/dL Normal 6.0-8.3 The [facility] Comment on above: Performed By: #### 8 4511 #### [facility] [address] [place] [address], [facility] Sodium [Moles/Vol] 136 mmol/L Normal 136-145 The [facility] Comment on above: Performed By: #### 8 4511 #### [facility] [address] [place] [address], [facility] Urea nitrogen [Mass/Vol] 30 mg/dL High 7-25 The [facility] Comment on above: Performed By: #### 8 4511 #### [facility] [address] [place] [address], [facility] CT BRAIN WO CONTRASTon 11-21 CT BRAIN WO CONTRAST [facility] Department of Radiology [address] [place], [place] [id number] Patient Name: RAQUEL VILA : 1965 Sex: F Age: Race: White Pt. Location: [place] [address] Patient Status: I Ordered Date: 11/20/2021 10:30:00 PM Completed Date: 11/20/2021 10:58 PM Requesting Provider: AISHWARYA DUCKWORTH Attending Provider: REMINGTON NOLAN Report Copy To: Signs & Symptoms: Headache History: See Comments Comments: Other Exam: CT BRAIN WO CONTRAST CLINICAL HISTORY: Headache. TECHNIQUE: CT brain without intravenous contrast. Automated exposure control was utilized. COMPARISON: No relevant prior studies available. FINDINGS: There is no shift of the midline structures, acute intracranial bleeding, mass effects, or evidence of acute ischemia/infarct. Artifact in the right occipital region accounting for the increased attenuation. The ventricular system size is age compatible. The brainstem and the cerebellum are unremarkable. The visualized intraorbital contents and the infratemporal soft tissues show no acute abnormality. No mucosal thickening in the visualized paranasal sinuses. The osseous structures in the skull base and the calvarium show no acute abnormality. Sebaceous cyst is present in the occipital subcutaneous tissues. IMPRESSION: * No acute intracranial findings. All CT scans at this facility use dose modulation, iterative reconstruction, and/or weight based dosing when appropriate to reduce radiation dose to as low as reasonably achievable. Electronically signed: Aziza Funes M.D.. Transcribed by: [email or web address], User Resident: Electronically Signed by: AZIZA FUNES @ 11/20/2021 11:03 PM Normal The [facility] Comment on above: Order Comment: Other ELECTROLYTE PANELon 11-22-19 22 CARBON DIOXIDE CANCELED Normal 21-31 The [facility] Comment on above: Result Comment: The released value 23 was canceled by [email or web address] on 11/21/2021 02:22 Performed By: #### 8 4511 #### [facility] [address] [place] [address], [facility] CHLORIDE CANCELED Normal 98-107 The [facility] Comment on above: Result Comment: The released value 101 was canceled by [email or web address] on 11/21/2021 02:22 Performed By: #### 8 4511 #### [facility] [address] [place] [address], [place] POTASSIUM CANCELED Normal 3.5-5.1 The [facility] Comment on above: Result Comment: The released value 4.4 was canceled by [email or web address] on 11/21/2021 02:22 Performed By: #### 8 4511 #### [facility] [address] [place] [address], [facility] SODIUM CANCELED Normal 136-145 The [facility] Comment on above: Result Comment: The released value 135 was canceled by [email or web address] on 11/21/2021 02:22 Performed By: #### 8 4511 #### [facility] [address] [place] [address], [place] LACTATE BLOODon 11-21-2021 Lactate [Moles/Vol] 2.1 mmol/L Normal .5-2.2 The [facility] Comment on above: Order Comment: No: D o not add to previous draw Performed By: #### 8 4511 #### [facility] [address] [place] [address], [facility] Lactate [Moles/Vol] 2.1 mmol/L Normal .5-2.2 The [facility] Comment on above: Order Comment: RESUL TS CHECKED AND CALLED. ACCURATELY READ BACK BY Jina TAVAREZ ED RN Performed By: #### 8 4511 #### [facility] [address] [place] [address], [facility] MAGNESIUM BLOODon 11-21-2021 Magnesium [Mass/Vol] 2.0 mg/dL Normal 1.9-2.7 The [facility] Comment on above: Order Comment: RESUL TS CHECKED AND CALLED. ACCURATELY READ BACK BY Jina TAVAREZ ED, RN Performed By: #### 8 4511 #### [facility] [address] [place] [address], [place] OSMOLALITY BLOODon 2 Osmolality [Osmolality] 319 mosm/kg High 285-305 The [facility] Comment on above: Order Comment: No: D o not add to previous draw Performed By: #### 8 4511 #### [facility] [address] [place] [address], [place] PHOSPHORUS BLOODon 2 Phosphate [Mass/Vol] 3.1 mg/dL Normal 2.5-5.0 The [facility] Comment on above: Order Comment: RESUL TS CHECKED AND CALLED. ACCURATELY READ BACK BY Jina TAVAREZ ED, RN Performed By: #### 8 4511 #### [facility] [address] [place] [address], [place] POC GLUCOSE LABon 11-21-2021 Glucose [Mass/Vol] 150 mg/dL High 70-100 The [facility] Comment on above: Performed By: #### 8 [id number] #### [facility] [address] [place] [address], [place] Glucose [Mass/Vol] 149 mg/dL High 70-100 The [facility] Comment on above: Performed By: #### 8 [id number] #### [facility] [address] [place] [address], [place] Glucose [Mass/Vol] 178 mg/dL High 70-100 The [facility] Comment on above: Performed By: #### 8 4511 #### [facility] [address] [place] [address], [place] Glucose [Mass/Vol] 173 mg/dL High 70-100 The [facility] Comment on above: Performed By: #### 8 4511 #### [facility] [address] [place] [address], [place] Glucose [Mass/Vol] 158 mg/dL High 70-100 The [facility] Comment on above: Performed By: #### 8 [id number] #### [facility] [address] [place] [address], [place] Glucose [Mass/Vol] 165 mg/dL High 70-100 The [facility] Comment on above: Performed By: #### 8 4511 #### [facility] [address] [place] [address], [place] Glucose [Mass/Vol] 185 mg/dL High 70-100 [facility] Comment on above: Performed By: #### 8 5499 #### [facility] [address] [place] [address], [place] Glucose [Mass/Vol] 200 mg/dL High 70-100 [facility] Comment on above: Performed By: #### 8 5499 ####[facility] [place] [address], [place] Glucose [Mass/Vol] 230 mg/dL High 70-100 [facility] Comment on above: Performed By: #### 8 4511 #### [facility] [address] [place] [address], [place] Glucose [Mass/Vol] 265 mg/dL High 70-100 [facility] Comment on above: Performed By: #### 8 5499 #### [facility] [address] [place] [address], [place] Glucose [Mass/Vol] 352 mg/dL High 70-100 [facility] Comment on above: Performed By: #### 8 [id number] #### [facility] [address] [place] [address], [place] Glucose [Mass/Vol] 403 mg/dL High 70-100 [facility] Comment on above: Performed By: #### 8 [id number] #### [facility] [address] [place] [address], [place] Glucose [Mass/Vol] 502 mg/dL Critically high 70-100 T he [facility] Comment on above: Order Comment: NOTE: Critical Value Performed By: #### 8 [id number] #### [facility] [address] [place] [address], [place] Glucose [Mass/Vol] 490 mg/dL High 70-100 [facility] Comment on above: Performed By: #### 8 5499 #### [facility] [address] [place] [address], [facility] PROCALCITONINon 11-21-2021 PROCALCITONIN 1.17 ng/mL High 0.00-0.10 [facility] Comment on above: Result Comment: Susp ected Lower Respiratory Tract Infection: 0.1-0.25ng/mL- Low likelihood for bacterial infection;Antibiotics discouraged.* >0.25ng/mL- Increased likelihood bacterial infection;Antibiotics encouraged. Suspected Sepsis: Strongly consider initiating antibiotics in all unstable patients. 0.1-0.5ng/mL- Low likelihood for sepsis; Antibiotics discouraged.* >0.5ng/mL- Increased likelihood sepsis; Antibiotics encouraged. >2.0ng/mL- High risk of sepsis/septic shock; Antibiotics strongly encouraged. *Recommend retesting PCT within 6-12hours if clinically indicated and initial PCT<0.5ng/mL Performed By: #### 8 4511 #### [facility] [address] TRIGLYCERIDES BLOODon 2021 Triglyceride [Mass/Vol] 121 mg/dL Normal 40-149 The [facility] Comment on above: Order Comment: RESUL TS CHECKED AND CALLED. ACCURATELY READ BACK BY Jina TAVAREZ ED RN Result Comment: TRIG LYCERIDE REFERENCE RANGE: 20 YEARS AND OLDER CARDIOVASCULAR RISK LESS THAN 150 mg/dl LOW RISK 150 TO 199 mg/dl BORDERLINE RISK 200 mg/dl AND GREATER HIGH RISK Performed By: #### 8 1717 #### [facility] [address] [place] [address], [facility] ACETONE SERUMon 11-20-2021 ACETONE Negative Normal NEGATIVE The [facility] Comment on above: Performed By: #### V ITAD #### [facility] [address] [place], [place] [address] Dr. Kelsie Dominguez ARTERIAL BLOOD GAS WITH ICAo n 11-20-2021 BASE EXCESS -4 mmol/L Low -2-[address] [facility] Comment on above: Order Comment: RESUL TS CHECKED AND CALLED. ACCURATELY READ BACK BY Jina TAVAREZ ED RN Performed By: #### 8 4511 #### [facility] [address] [facility] [place] [address], [facility] DELIVERY SYSTEMS VENTILATOR Normal The [facility] Comment on above: Order Comment: RESUL TS CHECKED AND CALLED. ACCURATELY READ BACK BY Jina TAVAREZ ED RN Performed By: #### 8 4511 #### [facility] [address] [place] [address], [facility] FIO2 100 % Normal [facility] Comment on above: Order Comment: RESUL TS CHECKED AND CALLED. ACCURATELY READ BACK BY Jina TAVAREZ ED RN Performed By: #### 8 4511 #### [facility] [address] [place] [address], [facility] HCO3 (Bld) [Moles/Vol] 23 mmol/L Normal 21-28 The [facility] Comment on above: Order Comment: RESUL TS CHECKED AND CALLED. ACCURATELY READ BACK BY Jina TAVAREZ ED RN Performed By: #### 8 4511 #### [facility] [address] [place] [address], [facility] IONIZED CALCIUM 1.13 mmol/L Normal 1.13-1.32 The [facility] Comment on above: Order Comment: RESUL TS CHECKED AND CALLED. ACCURATELY READ BACK BY Jina TAVAREZ ED, RN Performed By: #### 8 4511 #### [facility] [address] [place], [place] [address] MIN VOLUME 11.0 Normal The [facility] Comment on above: Order Comment: RESUL TS CHECKED AND CALLED. ACCURATELY READ BACK BY Jina TAVAREZ ED RN Performed By: #### 8 4511 #### [facility] [address] [place] [place] [address], [facility] MODALITY AC VC Normal The [facility] Comment on above: Order Comment: RESUL TS CHECKED AND CALLED. ACCURATELY READ BACK BY Jina TAVAREZ ED RN Performed By: #### 8 4511 #### [facility] [address] [place] [address], [facility] Oxygen (Bld) [Partial pressure] 68 mm[Hg] Low 83-108 The [facility] Comment on above: Order Comment: RESUL TS CHECKED AND CALLED. ACCURATELY READ BACK BY Jina TAVAREZ ED RN Performed By: #### 8 4511 #### [facility] [address] [facility]. [place], [place] [address] [place] [address] Oxygen saturation in Blood 91.7 % Low 94.0-97.0 The [facility] Comment on above: Order Comment: RESUL TS CHECKED AND CALLED. ACCURATELY READ BACK BY Jina TAVAREZ ED RN Performed By: #### 8 4511 #### [facility] [address] [facility] [place] [address], [facility] PCO2 52 mmHg High 35-45 The [facility] Comment on above: Order Comment: RESUL TS CHECKED AND CALLED. ACCURATELY READ BACK BY Jina TAVAREZ ED RN Performed By: #### 8 4511 #### [facility] [address] [facility] [place] [address], [facility] PEEP 10.0 CMH20 Normal The [facility] Comment on above: Order Comment: RESUL TS CHECKED AND CALLED. ACCURATELY READ BACK BY Jina TAVAREZ ED RN Performed By: #### 8 4511 #### [facility] [address] [place] [address], [facility] pH (Bld) 7.26 [pH] Low 7.35-7.45 The [facility] Comment on above: Order Comment: RESUL TS CHECKED AND CALLED. ACCURATELY READ BACK BY Jina TAVAREZ ED RN Performed By: #### 8 4511 #### [facility] [address] [place] [address], [facility] Respiratory rate 24 /min Normal The [facility] Comment on above: Order Comment: RESUL TS CHECKED AND CALLED. ACCURATELY READ BACK BY Jina TAVAREZ ED RN Performed By: #### 8 4511 #### [facility] [address] [place] [address], [facility] TIDAL VOLUME (VT) CC 450 Normal The [facility] Comment on above: Order Comment: RESUL TS CHECKED AND CALLED. ACCURATELY READ BACK BY Jina TAVAREZ ED RN Performed By: #### 8 4511 #### [facility] [address] [place] [address], [facility] BASE EXCESS -10 mmol/L Low -2-[address] [facility] Comment on above: Performed By: #### 8 4511 #### [facility] [address] [place], [place] [id number] [place] [address] DELIVERY SYSTEMS VENTILATOR Normal The [facility] Comment on above: Performed By: #### 8 4511 #### [facility] [address] [place] [address], [facility] FIO2 60 % Normal The [facility] Comment on above: Performed By: #### 8 4511 #### [facility] [address] [place] [address], [facility] HCO3 (Bld) [Moles/Vol] 20 mmol/L Low 21-28 The [facility] Comment on above: Result Comment: RESU LTS CHECKED AND CALLED. ACCURATELY READ BACK BY Jina TAVAREZ ED, RN Performed By: #### 8 4511 #### [facility] [address] [place] [address], [facility] IONIZED CALCIUM 1.13 mmol/L Normal 1.13-1.32 The [facility] Comment on above: Performed By: #### 8 4511 #### [facility] [address] [place] [address], [place] MIN VOLUME 6.8 Normal [facility] Comment on above: Performed By: #### 8 4511 #### [facility] [address] [place] [address], [place] MODALITY AV VC Normal The [facility] Comment on above: Performed By: #### 8 4511 #### [facility] [address] [place] [address], [place] Oxygen (Bld) [Partial pressure] 65 mm[Hg] Low 83-108 [facility] Comment on above: Performed By: #### 8 4511 #### [facility] [address] [place] [address], [place] Oxygen saturation in Blood 87.0 % Critically low 94.0-97.0 The [facility] Comment on above: Performed By: #### 8 [id number] #### [facility] [address] [place] [address], [place] PCO2 59 mmHg Critically high 35-45 The [facility] Comment on above: Performed By: #### 8 [id number] #### [facility] [address] [place] [address], [place] PEEP 8.0 CMH20 Normal [facility] Comment on above: Performed By: #### 8 [id number] #### [facility] [address] [place] [address], [place] pH (Bld) 7.14 [pH] Critically low 7.35-7.45 The [facility] Comment on above: Result Comment: RESU LTS CHECKED AND CALLED. ACCURATELY READ BACK BY Jina TAVAREZ ED, RN Performed By: #### 8 [id number] #### [facility] [address] [place] [address], [place] Respiratory rate 14 /min Normal The [facility] Comment on above: Performed By: #### 8 [id number] #### [facility] [address] [place] [address], [facility] TIDAL VOLUME (VT) CC 500 Normal The [facility] Comment on above: Performed By: #### 8 [id number] #### [facility] [address] [place] [address], [facility] BASIC METABOLIC PANELon 08-0 Calcium [Mass/Vol] 8.5 mg/dL Low 8.6-10.3 The [facility] Comment on above: Performed By: #### [id number] #### [facility] [address] [place] [address], [facility] Chloride [Moles/Vol] 102 mmol/L Normal 98-107 The [facility] Comment on above: Performed By: #### [id number] #### [facility] [address] [place] [address], [facility] CO2 [Moles/Vol] 19 mmol/L Low 21-31 The [facility] Comment on above: Performed By: #### 8 [id number] #### [facility] [address] [place] [address], [facility] Creatinine [Mass/Vol] 1.89 mg/dL High 0.60-1.20 The [facility] Comment on above: Performed By: #### 8 [id number] #### [facility] [address] EGFR 31 ml/min/1.73sq m Abnormal >60 The [facility] Comment on above: Result Comment: The [facility]'s estimated glomerular filtration rate (eGFR) will no longer include consideration of race in its calculation. The National Kidney Foundation's eGFR Task Force developed new recommendations for the estimation of the glomerular filtration rate in the [place] They recommend immediate implementation of the new equation refit without the race variable in all laboratories because the calculation does not include race. In addition to not including race in the calculation and reporting, it included diversity in its development, and has acceptable performance characteristics and potential consequences that do not disproportionately affect any one group of individuals. Performed By: #### [id number] #### [facility] [address] [place] [address], [facility] Glucose [Mass/Vol] 465 mg/dL High 70-100 The [facility] Comment on above: Performed By: #### [id number] #### [facility] [address] [facility] [place] [address], [facility] Potassium [Moles/Vol] 6.2 mmol/L Critically high 3.5-5.1 The [facility] Comment on above: Result Comment: M-CR ITICAL RESULT(S) REVIEWED, CALLED TO AND READ BACK BY Alexandra Vásquez RN at 2021. M-No hemolysis. Performed By: #### [id number] #### [facility] [address] [facility] [place] [address], [facility] Sodium [Moles/Vol] 135 mmol/L Low 136-145 The [facility] Comment on above: Performed By: #### [id number] #### [facility] [address] [facility] [place] [address], [facility] Urea nitrogen [Mass/Vol] 28 mg/dL High 7-25 The [facility] Comment on above: Performed By: #### [id number] #### [facility] [address] [facility] [place] [address], [facility] BLOOD GASES BTYon 11-20-2021 02 MODE VENTILATOR Normal The [facility] Comment on above: Performed By: #### V ITAD #### [facility] [address] [address] [address] Kelsie OBANDO TEST Positive Normal [facility] Comment on above: Performed By: #### V ITAD #### [facility] [address] [address] [address] Kelsie Dominguez Base excess Calc (Bld) [Moles/Vol] -14.30259 mmol/L Critically low -2.0-2.0 [facility] Comment on above: Performed By: #### V ITAD #### [facility] [address] [place] [address] Dr. Kelsie Dominguez BIPAP PRESSURE Normal [facility] Comment on above: Performed By: #### V ITAD #### [facility] [address] [place] [address] Dr. Kelsie Dmoinguez CO2 [Moles/Vol] 34.7 mmol/L Critically high 23.0-28.0 [facility] Comment on above: Performed By: #### V ITAD #### [facility] [address] [place] [address] Dr. Kelsie Dominguez CPAP [facility] Comment on above: Performed By: #### V ITAD #### [facility] [address] [place] [address] Dr. Kelsie Dominguez FIO2 100.00 % Normal [facility] Comment on above: Performed By: #### V ITAD #### [facility] [address] [place] [address] Dr. Kelsie Dominguez HCO3 (Bld) [Moles/Vol] 13.8 mmol/L Critically low 22.0-26.0 [facility] Comment on above: Performed By: #### V ITAD #### [facility] [address] [place] [address] Dr. Kelsie Dominguez LPM [facility] Comment on above: Performed By: #### V ITAD #### [facility] [address] [place] [address] Dr. Kelsie Dominguez MINUTE VOLUME Normal [facility] Comment on above: Performed By: #### V ITAD #### [facility] [address] [place] [address] Dr. Kelsie Dominguez Oxygen (Bld) [Partial pressure] 122.0 mm[Hg] Critically high 80.0-100.0 [facility] Comment on above: Performed By: #### V ITAD #### [facility] [address] [place] [address] Dr. Kelsie Dominguez Oxygen saturation in Blood 97.0 % Normal 95.0-100.0 [facility] Comment on above: Performed By: #### V ITAD #### [facility] [address] [address] [address] Kelsie Dominguez PCO2 53.1 mmHg Critically high 35.0-45.0 [facility] Comment on above: Performed By: #### V ITAD #### [facility] [address] [address] [address] Kelsie Dominguez PEEP 8 [facility] Comment on above: Performed By: #### V ITAD #### [facility] [address] [place] [address] Dr. Kelsie Dominguez pH (Bld) 7.084 [pH] Critically low 7.350-7.450 [facility] Comment on above: Performed By: #### V ITAD #### [facility] [address] [place] [address] Dr. Kelsie Dominguez PIP [facility] Comment on above: Performed By: #### V ITAD #### [facility] [address] [place] [address] Dr. Kelsie Dominguez PS 14 [facility] Comment on above: Performed By: #### V ITAD #### [facility] [address] [place] [address] Dr. Kelsie Dominguez PUNCTURE SITE RR [facility] Comment on above: Performed By: #### V ITAD #### [facility] [address] [place] [address] Dr. Kelsie Dominguez RATE 20 bpm [facility] Comment on above: Performed By: #### V ITAD #### [facility] [address] [place] [address] Dr. Kelsie Dominguez VENT MODE PSIMV [facility] Comment on above: Performed By: #### V ITAD #### [facility] [address] [place] [address] Dr. Kelsie Dominguez [place] [facility] Comment on above: Performed By: #### V ITAD #### [facility] [address] [place] [address] Dr. Kelsie Dominguez BNPon 11-20-2021 Natriuretic peptide B (Bld) [Mass/Vol] 2560.0 pg/mL Critically high <=900.0 [facility] Comment on above: Performed By: #### C MP, CMADM, BNP #### [facility] [address] [place] [address] Dr. Kelsie Dominguez CARDIAC JANIA ADMITon 022 CK [Catalytic activity/Vol] 93 U/L Normal 26-192 [facility] Comment on above: Performed By: #### C MP, CMADM, BNP #### [facility] [address] [place] [address] Dr. Kelsie Dominguez CK.MB [Mass/Vol] 2.87 ng/mL Normal <=3.60 [facility] Comment on above: Performed By: #### C MP, CMADM, BNP #### [facility] [address] [place] [address] Dr. Kelsie Dominguez HSTROP 12.2 pg/mL Normal 4.0-51.3 [facility] Comment on above: Result Comment: CUT- OFF POINTS HAVE BEEN ESTABLISHED BASED ON THE FOURTH UNIVERSAL DEFINITIONS OF MYOCARDIAL INFARCTION. THE UPPER REFERENCE LIMIT (URL) OF TROPONIN, DEFINED THE 99TH PERCENTILE OF cTnI DISTRIBUTION IN A REFERENCE POPULATION, HAS BEEN CONFIRMED THE DECISION THRESHOLD FOR [place] DIAGNOSIS. Performed By: #### C MP, CMADM, BNP #### [facility] [address] [place] [address] Dr. Kelsie Dominguez VARGAS 112 ng/mL Critically high 9-82 [facility] Comment on above: Performed By: #### C MP, CMADM, BNP #### [facility] [address] [place] [address] Dr. Kelsie Dominguez CBC W MANUAL DIFFon 11-21-19 22 ATYPICAL LYMPH # Normal [facility] Comment on above: Performed By: #### C BCMAN #### [facility] [address] [place] [address] Dr. Kelsie Dominguez ATYPICAL LYMPH % Normal [facility] Comment on above: Performed By: #### C BCMAN #### [facility] [address] [place] [address] Dr. Kelsie Dominguez BAND # 0.1 103/ul Normal 0.0-0.3 [facility] Comment on above: Performed By: #### C BCMAN #### [facility] [address] [place] [address] Dr. Kelsie Dominguez BAND % 1 % Normal 0-5 [facility] Comment on above: Performed By: #### C BCMAN #### [facility] [address] [place] [address] Dr. Kelsie Dominguez BASOM # 0.00 103/ul Normal 0.00-0.10 [facility] Comment on above: Performed By: #### C BCMAN #### [facility] [address] [place] [address] Dr. Kelsie Dominguez BASOM % 0.0 % Critically low 0.2-2.0 [facility] Comment on above: Performed By: #### C BCKASEY #### [facility] [address] [place] [address] Dr. Kelsie Dominguez BLAST # Normal [facility] Comment on above: Performed By: #### C BCKASEY #### [facility] [address] [place] [address] Dr. Kelsie Dominguez BLAST % Normal [facility] Comment on above: Performed By: #### C LIBERTAD #### [facility] [address] [place] [address] Dr. Kelsie Dominguez CORRECTED WBC Normal 4.0-11.0 The [facility] Comment on above: Performed By: #### C BCKASEY #### [facility] [address] [place] [address] Dr. Kelsie Dominguez EOS # 0.00 103/ul Normal 0.00-0.70 [facility] Comment on above: Performed By: #### C BCKASEY #### [facility] [address] [place] [address] Dr. Kelsie Dominguez EOS% 0.0 % Critically low 0.9-7.0 [facility] Comment on above: Performed By: #### C LIBERTAD #### [facility] [address] [address] [address] Kelsie Dominguez HCT 43.8 % Normal 36.0-48.0 [facility] Comment on above: Performed By: #### C LIBERTAD #### [facility] [address] [address] [address] Kelsie Dominguez HGB 13.3 g/dl Normal 12.0-16.0 [facility] Comment on above: Performed By: #### C LIBERTAD #### [facility] [address] [address] [address] Kelsie Dominguez LYMPHM # 3.78 103/ul Normal 1.20-3.80 [facility] Comment on above: Performed By: #### C LIBERTAD #### [facility] [address] [place] [address] Dr. Kelsie Dominguez LYMPHM% 27.0 % Normal 20.5-60.0 [facility] Comment on above: Performed By: #### C LIBERTAD #### [facility] [address] [place] [address] Dr. Kelsie Dominguez MCH 31.4 pg Normal 26.7-34.0 [facility] Comment on above: Performed By: #### C LIBERTAD #### [facility] [address] [place] [address] Dr. Kelsie Dominguez MCHC 30.4 g/dl Normal 29.9-35.2 [facility] Comment on above: Performed By: #### C LIBERTAD #### [facility] [address] [place] [address] Dr. Kelsie Dominguez MCV 103.3 fL Critically high 81.0-99.0 [facility] Comment on above: Performed By: #### C LIBERTAD #### [facility] [address] [place] [address] Dr. Kelsie Dominguez METAMYELOCYTE # Normal [facility] Comment on above: Performed By: #### C LIBERTAD #### [facility] [address] [place] [address] Dr. Kelsie Dominguez METAMYELOCYTE % Normal [facility] Comment on above: Performed By: #### C BCMAN #### [facility] [address] [address] [address] Kelsie Dominguez MONOM# 1.12 103/ul Critically high 0.30-0.80 [facility] Comment on above: Performed By: #### C BCMAN #### [facility] [address] [address] [address] Kelsie Dominguez MONOM% 8.0 % Normal 1.7-12.0 [facility] Comment on above: Performed By: #### C BCMAN #### [facility] [address] [address] [address] Kelsie Dominguez MPV 9.2 fL Critically low 9.5-13.5 [facility] Comment on above: Performed By: #### C BCMAN #### [facility] [address] [place] [address] Dr. Kelsie Dominguez MYELOCYTE # Normal [facility] Comment on above: Performed By: #### C BCKASEY #### [facility] [address] [address] [address] Kelsie Dominguez MYELOCYTE % Normal [facility] Comment on above: Performed By: #### C BCMAN #### [facility] [address] [place] [address] Dr. Kelsie Dominguez NRBC Normal [facility] Comment on above: Performed By: #### C BCKASEY #### [facility] [address] [address] [address] Kelsie Dominguez PLT 213 103/ul Normal 150-450 [facility] Comment on above: Performed By: #### C BCMAN #### [facility] [address] [address] [address] Kelsie Dominguez RBC 4.24 106/ul Normal 4.20-5.40 [facility] Comment on above: Performed By: #### C BCKASEY #### [facility] [address] [address] [address] Kelsie Dominguez RDW 14.6 % Normal 11.0-15.0 [facility] Comment on above: Performed By: #### C LIBERTAD #### [facility] [address] [address] [address] Kelsie Dominguez SEG # 8.96 103/ul Critically high 1.40-6.50 [facility] Comment on above: Performed By: #### C LIBERTAD #### [facility] [address] [address] [address] Kelsie Dominguez SEG % 64.0 % Normal 43.0-75.0 [facility] Comment on above: Performed By: #### C KAREEMMAN #### [facility] [address] [address] [address] Kelsie Dominguez WBC 14.0 103/ul Critically high 4.0-11.0 [facility] Comment on above: Performed By: #### C LIBERTAD #### [facility] [address] [place] [address] Dr. Kelsie Dominguez Covid-19 PCR ([facility])on SARS-CoV-2 (COVID-19) RNA SUZANNA+probe Ql (Unsp spec) Not detected Normal NOT DETECTED [facility] Comment on above: Result Comment: When diagnostic testing is negative, the possibility of a false negative should be considered in the context of a patient's recent exposures and the presence of clinical signs and symptoms consistent with SARS-CoV-2. This test is not yet approved or cleared by the [place] FDA. When there are no FDA-approved or cleared tests available, and other criteria are met, FDA can make tests available under an emergency access mechanism called an Emergency Use Authorization (EUA). The EUA for this test is supported by the Heavy Equipment Sales Manager of Health and Human Service's declaration that circumstances exist to justify the emergency use of in vitro diagnostics for the detection and/or diagnosis of the virus that causes COVID-19. This EUA will remain in effect for the duration of the COVID-19 declaration justifying emergency of IVDs, unless it is terminated or revoked by the FDA (after which the test may no longer be used). Performed By: #### C LIBERTAD #### [facility] [address] [place] [address] Dr. Kelsie Dominguez D-DIMERon 11-20-2021 D-DIMER 2.80 mg/L FEU Critically high <=0.59 [facility] Comment on above: Performed By: #### V ITAD #### [facility] [address] [place] [id number] Kelsie Dominguez D-DIMER COMMENTS SEE BELOW Normal [facility] Comment on above: Result Comment: Incr eases in D-Dimer concentration observed with thromboembolic events can be variable due to localization, size, and age of the thrombus. Therefore, a thromboembolic event cannot be diagnosed with certainty on the basis of the reference range. D-Dimers may also be elevated for a variety of disorders including: advanced age, , coronary disease, cancer, liver disease, infection, inflammation, hematoma, DIC, trauma, post-surgery, diabetes, thrombolytic or anticoagulant therapy, stress, and generalized hospitalization. Performed By: #### V ITAD #### [facility] [address] [place] [address] Dr. Kelsie Dominguez LACTATE BLOODon 11-20-2021 Lactate [Moles/Vol] 5.2 mmol/L Critically high .5-2.2 [facility] Comment on above: Order Comment: RESUL TS CHECKED AND CALLED. ACCURATELY READ BACK BY Jina TAVAREZ ED, RN Result Comment: M-CR ITICAL RESULT(S) REVIEWED, CALLED TO AND READ BACK BY Alxeandra Vásquez RN at 2140. Performed By: #### 8 [id number] #### [facility] [address] LACTATE/LACTIC ACIDon 2021 Lactate [Moles/Vol] 12.3 mmol/L Critically high 0.4-1.9 [facility] Comment on above: Performed By: #### H H #### [facility] [address] [place], [place] [id number] Dr. Kelsie Dominguez LIVER BATTERYon 11-20-2021 Albumin [Mass/Vol] 4.1 g/dL Normal 3.5-5.7 [facility] Comment on above: Performed By: #### 8 [id number] #### [facility] [address] [place] [address], [place] ALKALINE PHOSPH 213 IU/L High 34-104 [facility] Comment on above: Performed By: #### 8 [id number] #### [facility] [address] [place] [address], [place] ALT [Catalytic activity/Vol] 437 U/L Critically high 7-52 [facility] Comment on above: Performed By: #### 8 [id number] #### [facility] [address] [place] [address], [place] AST [Catalytic activity/Vol] 717 U/L High 13-39 [facility] Comment on above: Performed By: #### 8 [id number] #### [facility] [address] [place] [address], [place] Bilirubin [Mass/Vol] 1.7 mg/dL High 0.3-1.0 [facility] Comment on above: Performed By: #### 8 [id number] #### [facility] [address] [place] [address], [place] Bilirubin.direct [Mass/Vol] 0.9 mg/dL High 0.0-0.2 [facility] Comment on above: Performed By: #### 8 [id number] #### [facility] [address] [place] [address], [place] Protein [Mass/Vol] 6.8 g/dL Normal 6.0-8.3 [facility] Comment on above: Performed By: #### 8 [id number] #### [facility] [address] [place] [address], [place] MAGNESIUM BLOODon 11-20-2021 Magnesium [Mass/Vol] 2.1 mg/dL Normal 1.9-2.7 [facility] Comment on above: Performed By: #### 8 [id number] #### [facility] [address] [place] [address], [place] PHOSPHORUS BLOODon Phosphate [Mass/Vol] 7.1 mg/dL High 2.5-5.0 [facility] Comment on above: Performed By: #### 8 [id number] #### [address] [address] POINT OF CARE GLUCOSEon Glucose [Mass/Vol] 477 mg/dL Critically high 74-106 [facility] Comment on above: Performed By: #### C LIBERTAD #### [facility] [address] [address] [address] Kelsie Dominguez PORTABLE CHEST 1 VIEWon PORTABLE CHEST 1 VIEW [facility] Department of Radiology [address] [place] [id number] Patient Name: RAQUEL VILA : 1965 Sex: F Age: Race: White Pt. Location: [facility] Patient Status: E Ordered Date: 11/20/2021 8:35:00 PM Completed Date: 11/20/2021 08:43 PM Requesting Provider: NICOLLE RICH Attending Provider: NICOLLE RICH Report Copy To: Signs & Symptoms: O2 Desaturation History: Comments: Check E.T. Position Exam: PORTABLE CHEST 1 VIEW PORTABLE CHEST 1 VIEW 11/20/2021 8:43 PM CLINICAL INDICATIONS: O2 Desaturation TECHNOLOGIST COMMENTS: Check E.T. Position, O2 Desaturation QUESTION FOR THE RADIOLOGIST: Check E.T. Position PROTOCOL: AP(PA) view was obtained. COMPARISON: 08/05/2020 IMPRESSION: * Endotracheal tube above the laura. * Mildly prominent cardiac silhouette exaggerated by technique. Vascular congestion and multifocal groundglass opacities are noted. * No pneumothorax or free air. Electronically signed: Aziza Funes M.D.. Transcribed by: [email or web address], User Resident: Electronically Signed by: AZIZA FUNES @ 11/20/2021 09:02 PM Normal [facility] Comment on above: Order Comment: Check E.T. Position PROF 14(COMP METB)on 022 Albumin [Mass/Vol] 3.4 g/dL Normal 3.4-5.0 [facility] Comment on above: Performed By: #### C MP, CMADM, BNP #### [facility] [address] [place] [address] Dr. Kelsie Dominguez Albumin/Globulin [Mass ratio] 0.9 {ratio} Normal [facility] Comment on above: Performed By: #### C MP, CMADM, BNP #### [facility] [address] [address] [address] Kelsie Dominguez ALP [Catalytic activity/Vol] 161 U/L Critically high 46-116 [facility] Comment on above: Performed By: #### C MP, CMADM, BNP #### [facility] [address] [address] [address] Kelsie Dominguez ALT [Catalytic activity/Vol] 91 U/L Critically high 14-59 [facility] Comment on above: Performed By: #### C MP, CMADM, BNP #### [facility] [address] [address] [address] Kelsie Dominguez Anion gap [Moles/Vol] 29.0 mmol/L Normal [facility] Comment on above: Performed By: #### C MP, CMADM, BNP #### [facility] [address] [address] [address] Kelsie Dominguez AST [Catalytic activity/Vol] 134 U/L Critically high 15-37 [facility] Comment on above: Performed By: #### C MP, CMADM, BNP #### [facility] [address] [address] [address] Kelsie Dominguez Bilirubin [Mass/Vol] 1.0 mg/dL Normal 0.2-1.0 [facility] Comment on above: Performed By: #### C MP, CMADM, BNP #### [facility] [address] [place] [address] Dr. Kelsie Dominguez Calcium [Mass/Vol] 8.9 mg/dL Normal 8.5-10.1 [facility] Comment on above: Performed By: #### C MP, CMADM, BNP #### [facility] [address] [place] [address] Dr. Kelsie Dominguez Chloride [Moles/Vol] 98 mmol/L Normal 98-107 [facility] Comment on above: Performed By: #### C MP, CMADM, BNP #### [facility] [address] [place] [address] Dr. Kelsie Dominguez CO2 [Moles/Vol] 15.6 mmol/L Critically low 21.0-32.0 [facility] Comment on above: Performed By: #### C MP, CMADM, BNP #### [facility] [address] [place] [address] Dr. Kelsie Dominguez Creatinine [Mass/Vol] 2.18 mg/dL Critically high 0.55-1.02 [facility] Comment on above: Performed By: #### C MP, CMADM, BNP #### [facility] [address] [place] [address] Dr. Kelsie Dominguez EGFR-AF NAMIBIAN 28 mL/min/1.73m2 Critically low >=60 [facility] Comment on above: Performed By: #### C MP, CMADM, BNP #### [facility] [address] [place] [address] Dr. Kelsie Dominguez EGFR-NON AF NAMIBIAN 23 mL/min/1.73m2 Critically low >=60 [facility] Comment on above: Performed By: #### C MP, CMADM, BNP #### [facility] [address] [address] [address] Kelsie Dominguez Globulin (S) [Mass/Vol] 3.9 g/dL Normal [facility] Comment on above: Performed By: #### C MP, CMADM, BNP #### [facility] [address] [address] [address] Kelsie Dominguez Glucose [Mass/Vol] 587 mg/dL Critically high 74-106 [facility] Comment on above: Performed By: #### C MP, CMADM, BNP #### [facility] [address] [address] [address] Kelsie Dominguez Potassium [Moles/Vol] 6.6 mmol/L Critically high 3.5-5.1 [facility] Comment on above: Performed By: #### C MP, CMADM, BNP #### [facility] [address] [place] [address] Dr. Kelsie Dominguez Protein [Mass/Vol] 7.3 g/dL Normal 6.4-8.2 [facility] Comment on above: Performed By: #### C MP, CMADM, BNP #### [facility] [address] [address] [address] Kelsie Dominguez Sodium [Moles/Vol] 136 mmol/L Normal 136-145 [facility] Comment on above: Performed By: #### C MP, CMADM, BNP #### [facility] [address] [address] [address] Kelsie Dominguez Urea nitrogen [Mass/Vol] 25.0 mg/dL Critically high 7.0-18.0 [facility] Comment on above: Performed By: #### C MP, CMADM, BNP #### [facility] [address] [address] [address] Kelsie Dominguez Urea nitrogen/Creatinine [Mass ratio] 11.5 mg/mg Normal [facility] Comment on above: Performed By: #### C MP, CMADM, BNP #### [facility] [address] [address] [address] Kelsie Dominguez PROTIMEon 08-01-2022 INR Coag (PPP) [Relative time] 1.06 {INR} Normal [facility] Comment on above: Performed By: #### V ITAD #### [facility] [address] [place] [address] Dr. Kelsie Dominguez INR GUIDELINES SEE BELOW Normal [facility] Comment on above: Result Comment: EDDI RED INR: 2.0 - 3.0 CONDITIONS NOT LISTED BELOW 2.5 - 3.5 FOR PROSTHETIC HEART VALVE REPLACEMENT 2.5 - 3.5 RECURRENT THROMBOSIS Performed By: #### V ITAD #### [facility] [address] [place] [address] Dr. Kelsie Dominguez PT Coag (PPP) [Time] 11.4 s Normal 9.0-11.6 [facility] Comment on above: Performed By: #### V ITAD #### [facility] [address] [place] [address] Dr. Kelsie Dominguez PTTon 11-20-2021 aPTT Coag (Bld) [Time] 29.0 s Normal 22.3-36.2 [facility] Comment on above: Performed By: #### V ITAD #### [facility] [address] [place] [address] Dr. Kelsie Dominguez TROPONIN-Ion 11-20-2021 Troponin I.cardiac [Mass/Vol] 0.01 ng/mL Normal 0.00-0.04 [facility] Comment on above: Result Comment: REFE RENCE RANGES: 0.00 - 0.04 ng/ml NORMAL 0.05 - 0.50 ng/ml INDETERMINATE > 0.50 ng/ml CONSISTENT WITH AN M.I. Performed By: #### 8 [id number] #### [facility] [address] [place] [address], [facility] URINALYSISon 11-20-2021 Appearance (U) CLEAR Normal CLEAR [facility] Comment on above: Order Comment: Yes: Add to Previous draw if able Performed By: #### 1 0008 #### [facility] [address] [place] [address], [place] Bilirubin Ql (U) Negative Normal NEGATIVE [facility] Comment on above: Order Comment: Yes: Add to Previous draw if able Performed By: #### 1 0008 #### [facility] [address] [place] [address], [facility] Color (U) YELLOW Normal YELLOW [facility] Comment on above: Order Comment: Yes: Add to Previous draw if able Performed By: #### 1 0008 #### [facility] [address] [place] [address], [facility] EPIS NONE SEEN Normal FEW,OCC,NONE SEEN [facility] Comment on above: Order Comment: Yes: Add to Previous draw if able Performed By: #### 1 0008 #### [facility] [address] [place] [address], [place] Glucose Ql (U) >=1000 Abnormal NEGATIVE [facility] Comment on above: Order Comment: Yes: Add to Previous draw if able Performed By: #### 1 0008 #### [facility] [address] [place] [address], [place] Hemoglobin Ql (U) SMALL Abnormal NEGATIVE The [facility] Comment on above: Order Comment: Yes: Add to Previous draw if able Performed By: #### 1 0008 #### [facility] [address] [place] [address], [place] KETONE Negative Normal NEGATIVE [facility] Comment on above: Order Comment: Yes: Add to Previous draw if able Performed By: #### 1 0008 #### [facility] [address] [place] [address], [place] LEUK DORIS Negative Normal NEGATIVE The [facility] Comment on above: Order Comment: Yes: Add to Previous draw if able Performed By: #### 1 0008 #### [facility] [address] [place] [address], [place] MUCUS THREADS OCC Abnormal NONE SEEN The [facility] Comment on above: Order Comment: Yes: Add to Previous draw if able Performed By: #### 1 0008 #### [facility] [address] [place] [address], [facility] Nitrite Ql (U) Negative Normal NEGATIVE [facility] Comment on above: Order Comment: Yes: Add to Previous draw if able Performed By: #### 1 0008 #### [facility] [address] [place] [address], [facility] pH (U) 6.0 [pH] Normal 5.0-8.0 [facility] Comment on above: Order Comment: Yes: Add to Previous draw if able Performed By: #### 1 0008 #### [facility] [address] [facility] [place] [address], [facility] Protein Ql (U) 30 Abnormal NEGATIVE [facility] Comment on above: Order Comment: Yes: Add to Previous draw if able Performed By: #### 1 0008 #### [facility] [address] [facility]. [address] RBC 0-2 Abnormal NONE SEEN The [facility] Comment on above: Order Comment: Yes: Add to Previous draw if able Performed By: #### 1 0008 #### [facility] [address] [facility] [place] [address], [facility] SPEC GRAV 1.015 Normal 1.015-1.[address] [facility] Comment on above: Order Comment: Yes: Add to Previous draw if able Performed By: #### 1 0008 #### [facility] [address] [place] [address], [facility] WBC UA 0-2 Abnormal NONE SEEN The [facility] Comment on above: Order Comment: Yes: Add to Previous draw if able Performed By: #### 1 0008 #### [facility] [address] XR CHEST 1 Von 11-20-2021 XR CHEST 1 V EXAMINATION: XR CHES T 1 V HISTORY: SHORTNESS OF BREATH COMPARISON: No relevant comparison available. FINDINGS: LUNGS: Endotracheal tube with the tip in the right mainstem bronchus, 1.2 cm underexpanded lungs with right hilar prominence. VASCULATURE: No increased pulmonary vasculature. PLEURA: No pneumothorax, effusion, or pleural thickening. CARDIAC: Cardiomegaly. MEDIASTINUM: No visible mass or adenopathy. BONES: No fracture or visible bone lesion. OTHER: Negative. IMPRESSION: 1. Endotracheal tube tip is in right mainstem bronchus. Retraction of the tube 4 cm is recommended. 2. Underexpanded lungs with right perihilar prominence; developing pulmonary edema versus infiltrates versus lymphadenopathy. Left-side is obscured by the heart silhouette. 3. New cardiomegaly. Electronically authenticated by: AMARA DAVISON Date: 2021-11-20 17:47 Normal [facility] ECHOCARDIO M/2D COMPLETEon 0 10-02-2021 ECHOCARDIO M/2D COMPLETE Patient: RAQUEL VILA Exam Date: 10/02/2021 : 1965 Gender:F Ordering : DR KATHERYN NIXON M.D. Admission #: [id number] Family : SHAIKH Silvino JACQUES . Order #: [id number] CLICK HERE TO VIEW EXAM ECHOCARDIOGRAM REPORT PROCEDURE: CARDIO PULMONARY ECHOCARDIO M/2D COMP INDICATIONS: Hypertrophic obstructive cardiomyopathy, hypertension, former smoker, h/o ablation COMPARISON: None. DESCRIPTION: COMPLETE ECHOCARDIOGRAM Real-time transthoracic echocardiography with 2D, M-mode, spectral and color flow Doppler performed. QUALITY: Technical quality was good. 65 290# BP 144/78 HR 81 LEFT VENTRICLE: Normal chamber size. Mild concentric left ventricular hypertrophy. Systolic function is hyperdynamic. There is evidence of mild left ventricular outflow tract obstruction with a late peaking gradient of 16 mmHg (peak velocity 2.02 m/s) at rest. There is no evidence of systolic anterior motion (ZAC) of the anterior mitral valve leaflet. Overall gradient across the left ventricle is moderately increased at 47 mmHg [velocity 3.4 m/s]. This is related to the hyperdynamic contractility of the ventricle. LV EF: Hyperdynamic left ventricular ejection fraction, (75%). DIASTOLIC: Diastolic function is indeterminate. ATRIAL SEPTUM: LEFT ATRIUM: Mild dilatation. RIGHT ATRIUM: Normal chamber size. RIGHT VENTRICLE: Normal chamber size. Normal right ventricular systolic function. TRICUSPID VALVE: Normal mobility and thickness. No stenosis with mild regurgitation. Doppler studies reveal moderately (45-60) elevated right sided pressures. RVSP 47 mmHg MITRAL VALVE: Normal mobility and thickness. No evidence of mitral valve stenosis. There is no mitral annular calcification. Trivial mitral regurgitation. AORTIC VALVE: Normal trileaflet appearance. No visible sclerosis. Normal leaflet mobility. Trivial aortic regurgitation. AORTIC ROOT: Normal diameter and appearance. Ascending aorta is normal in size. PULMONIC VALVE: Normal thickness and mobility. No stenosis. No regurgitation. PERICARDIUM: No evidence of pericardial effusion. IVC: Not well visualized. PLEURA: CONCLUSION: 1. Left ventricular systolic function is hyperdynamic. LVEF is 75%. Mild left ventricular outflow tract obstruction is noted with a peak gradient of 16 mmHg at rest. There is no evidence of ZAC of the mitral valve. Moderately increased overall velocities and gradient across the left ventricle related to hyperdynamic contractility. 2. Normal right ventricular systolic function. 3. No significant valvular dysfunction. 4. Moderate elevation of right-sided pressures. Adult Echocardiography Procedure Report Left Ventricle Left Atrium Mitral Valve Right Ventricle Aorta Aortic Valve Peak Velocity (Antegrade Flow): 3.45 m/s, 3.41 m/s AoV Area (Peak Rafael): 1.67 cm2, 1.67 cm2, 1.70 cm2, 1.70 cm2 AoV Area (VTI): 1.39 cm2, 1.39 cm2 Peak Velocity(Antegrade Flow): 3.45 m/s, 3.41 m/s Peak Gradient(Antegrade Flow): 47.57 mm[Hg], 46.38 mm[Hg] Mean Velocity(Antegrade Flow): 2.65 m/s Mean Gradient(Antegrade Flow): 30.92 mm[Hg] Velocity Time Integral: 79.43 cm Tricuspid Valve Peak Velocity (Regurgitant Flow): 3.36 m/s, 2.96 m/s, 3.29 m/s, 3.32 m/s Peak Velocity: 0.62 m/s Pulmonic Valve PV Max Rafael (0.6 - 0.9 m per sec): 1.24 m/s PV Max Gradient: 6.11 mm[Hg] Right Atrium Dictated by: Katheryn Nixon M.D. on 10/03/2021 at 18:23 Approved by: Katheryn Nixon M.D. on 10/03/2021 at 18:42 Normal [facility] US ST HEAD_NECKon 09-17-[address] HEAD_NECK EXAM: US ST HEAD_NEC K HISTORY: Mass of head , chronic, slowly enlarging lump on back of scalp COMPARISON: None. TECHNIQUE: Ultrasound evaluation of soft tissue FINDINGS: Corresponding to the patient's palpable lump is a 2.0 x 1.8 x 1.1 cm smoothly encapsulated heterogeneous nodule within the subcutaneous fat. No detectable internal blood flow on color Doppler. IMPRESSION: 1. Nonspecific avascular versus hypovascular mass within the subcutaneous fat corresponding to patient's lump. This is nonspecific but would be compatible with a chronic sebaceous gland cyst, epidermoid inclusion cyst, etc. Ultrasound-guided tissue sampling could be performed if desired. Electronically authenticated by: AMARA DAVISON Date: 2021-09-17 09:22 Normal [facility] US THYROIDon 09-17-2021 US THYROID EXAMINATION: US THYROID HISTORY: Non-toxic uninodular goiter COMPARISON: Ultrasound thyroid 11/08/2020, 03/25/2020 FINDINGS: RIGHT LOBE: Contains several stable nodules, highest grade is a 6 mm TR 4 nodule within mid body and an 8 mm TR 4 nodule within superior pole. Lobe size: 5.8 x 2.1 x 2.2 cm LEFT LOBE: Contains a 2.0 x 1.8 x 1.4 cm TR 4 nodule within inferior pole. Lobe size: 6.5 x 2.4 x 2.8 cm ISTHMUS: Contains a 2.2 x 1.9 x 1.5 cm TR 4 nodule. Abnormally thickened isthmus. Thickness: 7 mm IMPRESSION: 1. Heterogeneous thyroid gland containing multiple nodules suggests multinodular goiter. No significant change compared to last 2 years. Follow-up imaging in one year is recommended. TR 4: The [employer] TI-RADS committee's white paper recommendations for thyroid lesions classified as TR4 (moderately suspicious) are listed below: > 1.0 cm. Follow-up ultrasound in 1, 2, 3, and 5 years. > 1.5 cm. FNA. J. Am Alfonso Radiol 2017;14:587-595. Electronically authenticated by: AMARA DAVISON Date: 2021-09-17 09:29 Normal [facility] Vital Signs Date Time Vital Sign Value Performing Clinician Facility 02-08-2022 15:00-0400 Body height 165.1 cm Margarita Truman Other [facility] Other 02-08-2022 15:00-0400 Body mass index (BMI) [Ratio] 42.66 kg/m2 Margarita Truman Other [facility] Other 02-08-2022 15:00-0400 Body temperature 96.6 [degF] Margarita Truman Other [facility] Other 02-08-2022 15:00-0400 Body weight 116.3 kg Margarita Truman Other [facility] Other 02-08-2022 15:00-0400 Diastolic blood pressure 76 mm[Hg] Margarita Truman Other [facility] Other 02-08-2022 15:00-0400 Respiratory rate 18 /min Margarita Truman Other [facility] Other 02-08-2022 15:00-0400 SaO2% (BldA) [Mass fraction] 96 % Margarita Truman Other [facility] Other 02-08-2022 15:00-0400 Systolic blood pressure 114 mm[Hg] Margarita Truman Other [facility] Other 12-06-2021 12:35-0400 Body height 165.1 cm Isaias Gomez Other [facility] Other 12-06-2021 12:35-0400 Body mass index (BMI) [Ratio] 43.26 kg/m2 Isaias Gomez Other [facility] Other 12-06-2021 12:35-0400 Body temperature 97.3 [degF] Isaias Gomez Other [facility] Other 12-06-2021 12:35-0400 Body weight 117.94 kg Isaias Gomez Other [facility] Other 12-06-2021 12:35-0400 Respiratory rate 18 /min Isaias Gomez Other [facility] Other 12-06-2021 12:35-0400 SaO2% (BldA) [Mass fraction] 93 % Isaias Gomez Other [facility] Other 10-10-2021 14:05-0400 Blood Pressure Location [facility] 10-10-2021 14:05-0400 Diastolic blood pressure 78 mm[Hg] Nalini NILL [facility] 10-10-2021 14:05-0400 Heart rate 72 /min Nalini NILL [facility] 10-10-2021 14:05-0400 Respiratory rate 16 /min Nalini NILL [facility] 10-10-2021 14:05-0400 Systolic blood pressure 120 mm[Hg] Nalini NILL [facility] 08-08-2021 16:00-0400 Body height 165.1 cm Margarita Truman Other [facility] Other 08-08-2021 16:00-0400 Body mass index (BMI) [Ratio] 48.89 kg/m2 Margarita Truman Other [facility] Other 08-08-2021 16:00-0400 Body temperature 97.8 [degF] Margarita Truman Other [facility] Other 08-08-2021 16:00-0400 Body weight 133.27 kg Margarita Truman Other [facility] Other 08-08-2021 16:00-0400 Diastolic blood pressure 78 mm[Hg] Margarita Truman Other [facility] Other 08-08-2021 16:00-0400 Respiratory rate 18 /min Margarita Truman Other [facility] Other 08-08-2021 16:00-0400 SaO2% (BldA) [Mass fraction] 95 % Margarita Truman Other [facility] Other 08-08-2021 16:00-0400 Systolic blood pressure 122 mm[Hg] Margarita Truman Other [facility] Other Encounters Encounter Date Encounter Type Care Provider Facility Start: 05-24-2023 End: 05-24-2023 ambulatory [facility] Start: 05-07-2023 End: 05-07-2023 ambulatory SHAIKH AMBAR Not Available Start: 04-25-2023 End: 04-25-2023 ambulatory [facility] Start: 12-07-2022 End: 12-07-2022 ambulatory [facility] Start: 11-01-2022 ambulatory Nalini LANDERS Facility:[facility] Start: 08-07-2022 End: 08-08-2022 ambulatory MARGARITA TRUMAN Facility:[facility] Start: 06-14-2022 End: 06-14-2022 ambulatory Margarita Truman Other [facility] Other Start: 06-14-2022 Telephone encounter Margarita Truman [facility] Start: 06-11-2022 End: 06-11-2022 ambulatory [facility] Start: 05-31-2022 End: 05-31-2022 ambulatory Giovana Crum Other [facility] Other Start: 05-31-2022 Telephone encounter Giovana Crum [facility] Start: 03-23-2022 End: 03-31-2022 ambulatory SHAIKH Ashley JACQUES Facility:[facility] Start: 02-14-2022 End: 02-15-[address] DOCTOR SHAHID Facility:[facility] Start: 02-08-2022 End: 02-08-2022 ambulatory Margarita Truman Other [facility] Other Start: 02-08-2022 Office outpatient visit 25 minutes Margarita Truman [facility] Start: 01-31-2022 End: 02-01-2022 ambulatory MARGARITA TRUMAN Facility:[facility] Start: 01-10-2022 End: 01-11-2022 ambulatory Nalini LANDERS Facility:[facility] Start: 01-10-2022 End: 01-10-2022 Patient encounter procedure Nalini LANDERS General Surgery [facility] Start: 12-27-2021 End: 12-28-[address] NALINI LANDERS . Facility:[facility] Start: 12-06-2021 End: 12-06-2021 ambulatory Isaias Gomez Other [facility] Other Start: 12-06-2021 Office outpatient visit 15 minutes Isaias Jason [facility] Start: 11-21-2021 End: 11-21-2021 ambulatory UNKNOWN PROVIDER Facility:[facility] Start: 11-20-2021 End: 11-24-2021 Evaluation and management of inpatient ERIC CONTE Facility:[facility] Start: 11-20-2021 End: 11-20-[address] AMARA DAVISON Facility: Start: 10-10-2021 End: 10-10-2021 Patient encounter procedure Nalini JULIENL General Surgery [facility] Start: 10-02-2021 End: 10-03-[address] KATHERYN NIXON Facility:[facility] Start: 09-16-2021 End: 09-17-[address] AMARA DAVISON Facility: Start: 08-08-2021 End: 08-08-2021 ambulatory Margarita Truman Other [facility] Other Start: 08-08-2021 Office outpatient visit 25 minutes Margarita Truman [facility] Procedures Date Procedure Procedure Detail Performing Clinician Start: 04-25-2023 Follow-up visit Follow-up JANIA Bassett MATT section Nalini NIL L Deviated nasal septu m (disorder) Nalini NILL Excision of cyst Nalini NIL L Excision of uvula Nalini NI LL Rotator cuff syndrom e (disorder) Nalini NILL Comment on above: right Tonsillectomy and adenoidectomy Nalini NILL Immunizations Immunization Date Immunization Notes Care Provider Fa cility NEGATED: Highlighted row has not occurred!05-18-2020 influenza virus vaccine, unspecified formulation Nalini NILL [facility] Payers Date Payer Category Payer Unknown [id number] [id number]. [id number] 1965 Unknown [id number] 2.16.8 [id number] 1965 Unknown [id number] 2.16.84 [id number] 1965 Unknown [id number] 2.16.84 [id number] 1965 Unknown [id number] 2.16.84 [id number] 1965 Unknown [id number] 2.16.84 [id number] 1965 Unknown [id number] 2.16.84 [id number] 1965 Unknown [id number] 2.16.84 [id number] 1965 Unknown [id number] 2.16.84 [id number] 1965 Unknown [id number] 2.16.84 [id number] 1965 Unknown [id number] 2.16.8 [id number] 1965 Unknown [id number] 2.16.8 [id number] 1965 Unknown [id number] 2.16.84 0.1.191779.3.579.2.1286 1965 Unknown [id number] 2.16.84 [id number] 1959 Medicaid [id number] 1959 Unknown [id number] Unknown [id number] Social History Date Type Detail Facility Start: 10-10-2021 Tobacco smoking status Ex-smoker (fi day) [facility] Other Tobacco smoking status Never Gener al Surgery [employer] Sex Assigned At Female [facility] Other Functional Status Date Assessment Result Facility 10-10-2021 Functional Status N/A General [facility] [employer] Clinical Notes 08-08-2021 to 05-24-2023 Note Date & Type Note Facility 05-24-2023 Note [facility] Subjective Raquel Vila is a 57 y.o. year old female patient being seen for 6 mo follow up HCM, hypertension, hyperlipidemia, and hx of PE. She will have routine labs drawn on Saturday for PCP. She denies chest pain, SOB, palpitations, LE edema, and lightheadedness/syncope. Patient Active Problem List Diagnosis ??? Chronic low back pain ??? Current smoker ??? Diastolic heart failure (CMS/HCC) ??? Disorder of intervertebral disc of cervical spine ??? Functional heart murmur ??? History of pulmonary embolism ??? Hyperlipidemia ??? Hypertrophic obstructive cardiomyopathy (CMS/HCC) ??? Infected sebaceous cyst ??? Insomnia ??? Mixed anxiety depressive disorder ??? Generalized anxiety disorder ??? Morbid obesity (CMS/HCC) ??? Hypertension ??? Peripheral vascular disease (CMS/HCC) ??? Pilar cyst ??? Plantar fasciitis ??? Restless legs syndrome ??? Sensorineural hearing loss (SNHL) of both ears ??? Severe episode of recurrent major depressive disorder, without psychotic features (CMS/HCC) ??? Obstructive sleep apnea syndrome ??? Sleep apnea ??? Type 2 diabetes mellitus (CMS/HCC) ??? Diabetes mellitus (CMS/HCC) ??? Varicose veins of lower extremity ??? Vascular insufficiency ??? Vitamin D deficiency ??? Family history of osteoporosis in mother ??? Acute pain of left shoulder ??? Annual physical exam ??? Cardiomyopathy (CMS/HCC) ??? Chronic pain of both knees Family History Problem Relation Name Age of Onset ??? Breast cancer Mother Social History Tobacco Use ??? Smoking status: Former Types: Cigarettes ??? Smokeless tobacco: Never Substance Use Topics ??? Alcohol use: Yes Comment: occasional HPI Raquel is seen in follow up. She was initially seen on 10/02/[address] Grace's office. Visit of 10/02/2017: She was recently evaluated by Dr Grace due to shortness of breath, leg edema, chest heaviness. The chest heaviness and shortness of breath happen on mild exertion (walking short distance). This is resolved by resting. She sometimes has symptoms when sleeping at night. She has no palpitations. She has had no syncope. She has history of hypertension, on treatment for about 1 year. She has obesity and PATRICE. She has diabetes (on treatment for about 1 year). Echocardiogram 09/25/2017: Normal LV systolic function. Mild diastolic dysfunction. Mild biatrial dilatation. Mild to moderate TR with moderate elevated right sided pressures. LVOT resting dynamic gradient (mean 26 mmHg). No provocative maneuvers performed. Findings are consistent with the phenotype of hypertrophic obstructive cardiomyopathy. ECG today 10/02/2017: Normal sinus rhythm Non specific ST abnormality Update 11/11/2017: She is seen in follow up. She has been feeling better. She says she recently had pneumonia, was on antibiotics. At last visit I had added metoprolol. She is still having dyspnea on exertion, better that before. No chest pain. Her lipid profile 09/04/2017: LDL 116; chol 227; HDL 60; TG 256 Echocardiogram 11/05/2017: Global left ventricular systolic function is normal (Visually estimated EF 65%). Mild left ventricular outflow tract obstruction. Moderate increase in LVOT Doppler flows with Valsalva maneuver. No regional wall motion abnormality. Grade 1, mild diastolic dysfunction (abnormal relaxation). Mild-moderate tricuspid regurgitation. Doppler studies suggest mildly elevated right sided pressures. Event monitor 10/02/2017 for 23.5 days: sinus rhythm mostly with 8 beat of accelerated junctional rhythm. Update 02/12/2018: She is seen in follow up. She is feeling a bit better but still has dyspnea on exertion. She has been found to have anemia (Hb 10.0) and will see GI for possible endoscopy. Event monitor 12/30/2017 for 24 days: sinus rhythm with rare PACs and PVCs and no significant arrhythmias. Echocardiogram 02/10/2018: Global left ventricular systolic function is normal (Visually estimated EF 65%). Concentric left ventricular hypertrophy. No regional wall motion abnormality. Moderate left ventricular outflow tract obstruction. Right ventricular systolic function appears normal. Mild-moderate tricuspid regurgitation. Doppler studies suggest mildly elevated right sided pressures. There is an LV obstruction under provocation. The max LVOT velocity is 4.6 m/sec. Gradient 84 mmHg. Doppler flows in the LVOT increased with valsalva maneuver. According to echocardiographic criteria, there is hypertrophic cardiomyopathy with obstruction. Limited echocardiogram performed to assess left ventricular outflow tract and right ventricular systolic pressure. Her septum measures about 2 cm at the base. Update 03/24/2018: She is seen in follow up. At last visit I had increased the cardizem to 360 mg daily. She says that she has been a little more short of breath on exertion. No robbi (more content not included)... [facility] 12-07-2022 Note [place] [facility] - [facility] Subjective Raquel Vila is a 56 y.o. year old female patient being seen for Follow-up (6 MONTH FOLLOW UP ) Patient Active Problem List Diagnosis Chronic low back pain Current smoker Diastolic heart failure (CMS/HCC) Disorder of intervertebral disc of cervical spine Functional heart murmur History of pulmonary embolism Hyperlipidemia Hypertrophic obstructive cardiomyopathy (CMS/HCC) Infected sebaceous cyst Insomnia Mixed anxiety depressive disorder Generalized anxiety disorder Morbid obesity (CMS/HCC) Hypertension Peripheral vascular disease (CMS/HCC) Pilar cyst Plantar fasciitis Restless legs syndrome Sensorineural hearing loss (SNHL) of both ears Severe episode of recurrent major depressive disorder, without psychotic features (CMS/HCC) Obstructive sleep apnea syndrome Sleep apnea Type 2 diabetes mellitus (CMS/HCC) Diabetes mellitus (CMS/HCC) Varicose veins of lower extremity Vascular insufficiency Vitamin D deficiency Family history of osteoporosis in mother Family History Problem Relation Name Age of Onset Breast cancer Mother Social History Tobacco Use Smoking status: Former Types: Cigarettes Smokeless tobacco: Never Substance Use Topics Alcohol use: Yes Comment: occasional HPI Raquel is seen in follow up. She was initially seen on 10/02/[address] Grace's office. Visit of 10/02/2017: She was recently evaluated by Dr Grace due to shortness of breath, leg edema, chest heaviness. The chest heaviness and shortness of breath happen on mild exertion (walking short distance). This is resolved by resting. She sometimes has symptoms when sleeping at night. She has no palpitations. She has had no syncope. She has history of hypertension, on treatment for about 1 year. She has obesity and PATRICE. She has diabetes (on treatment for about 1 year). Echocardiogram 09/25/2017: Normal LV systolic function. Mild diastolic dysfunction. Mild biatrial dilatation. Mild to moderate TR with moderate elevated right sided pressures. LVOT resting dynamic gradient (mean 26 mmHg). No provocative maneuvers performed. Findings are consistent with the phenotype of hypertrophic obstructive cardiomyopathy. ECG today 10/02/2017: Normal sinus rhythm Non specific ST abnormality Update 11/11/2017: She is seen in follow up. She has been feeling better. She says she recently had pneumonia, was on antibiotics. At last visit I had added metoprolol. She is still having dyspnea on exertion, better that before. No chest pain. Her lipid profile 09/04/2017: LDL 116; chol 227; HDL 60; TG 256 Echocardiogram 11/05/2017: Global left ventricular systolic function is normal (Visually estimated EF 65%). Mild left ventricular outflow tract obstruction. Moderate increase in LVOT Doppler flows with Valsalva maneuver. No regional wall motion abnormality. Grade 1, mild diastolic dysfunction (abnormal relaxation). Mild-moderate tricuspid regurgitation. Doppler studies suggest mildly elevated right sided pressures. Event monitor 10/02/2017 for 23.5 days: sinus rhythm mostly with 8 beat of accelerated junctional rhythm. Update 02/12/2018: She is seen in follow up. She is feeling a bit better but still has dyspnea on exertion. She has been found to have anemia (Hb 10.0) and will see GI for possible endoscopy. Event monitor 12/30/2017 for 24 days: sinus rhythm with rare PACs and PVCs and no significant arrhythmias. Echocardiogram 02/10/2018: Global left ventricular systolic function is normal (Visually estimated EF 65%). Concentric left ventricular hypertrophy. No regional wall motion abnormality. Moderate left ventricular outflow tract obstruction. Right ventricular systolic function appears normal. Mild-moderate tricuspid regurgitation. Doppler studies suggest mildly elevated right sided pressures. There is an LV obstruction under provocation. The max LVOT velocity is 4.6 m/sec. Gradient 84 mmHg. Doppler flows in the LVOT increased with valsalva maneuver. According to echocardiographic criteria, there is hypertrophic cardiomyopathy with obstruction. Limited echocardiogram performed to assess left ventricular outflow tract and right ventricular systolic pressure. Her septum measures about 2 cm at the base. Update 03/24/2018: She is seen in follow up. At last visit I had increased the cardizem to 360 mg daily. She says that she has been a little more short of breath on exertion. No chest pain. Echocardiogram 03/19/2018: Global left ventricular systolic function is hyperdynamic (Visually estimated EF 75%). The left ventricle is normal size. Left ventricular wall thickness is mildly increased. Mild left ventricular hypertrophy. No regional wall motion abnormality. The mitral valve is normal in mobility and thickness. Mild systolic anterior motion of the mitral valve is seen. Grade I: (more content not included)... [facility] 06-11-2022 Note [place] [facility] - [facility] Subjective Raquel Vila is a 56 y.o. year old female patient being seen for 6 mo follow up HOCM, hypertension, and hyperlipidemia. Had labs in Jan 2022. She is down 27#. She hasn't had issues since her admission to [facility] in Nov 2021. Patient Active Problem List Diagnosis Chronic low back pain Current smoker Diastolic heart failure (CMS/HCC) Disorder of intervertebral disc of cervical spine Functional heart murmur History of pulmonary embolism Hyperlipidemia Hypertrophic obstructive cardiomyopathy (CMS/HCC) Infected sebaceous cyst Insomnia Mixed anxiety depressive disorder Generalized anxiety disorder Morbid obesity (CMS/HCC) Hypertension Peripheral vascular disease (CMS/HCC) Pilar cyst Plantar fasciitis Restless legs syndrome Sensorineural hearing loss (SNHL) of both ears Severe episode of recurrent major depressive disorder, without psychotic features (CMS/HCC) Obstructive sleep apnea syndrome Sleep apnea Type 2 diabetes mellitus (CMS/HCC) Diabetes mellitus (CMS/HCC) Varicose veins of lower extremity Vascular insufficiency Vitamin D deficiency Family History Problem Relation Name Age of Onset Breast cancer Mother Social History Tobacco Use Smoking status: Former Types: Cigarettes Smokeless tobacco: Never Substance Use Topics Alcohol use: Yes Comment: occasional HPI Raquel is seen in follow up. She was initially seen on 10/02/[address] Grace's office. Visit of 10/02/2017: She was recently evaluated by Dr Grace due to shortness of breath, leg edema, chest heaviness. The chest heaviness and shortness of breath happen on mild exertion (walking short distance). This is resolved by resting. She sometimes has symptoms when sleeping at night. She has no palpitations. She has had no syncope. She has history of hypertension, on treatment for about 1 year. She has obesity and PATRICE. She has diabetes (on treatment for about 1 year). Echocardiogram 09/25/2017: Normal LV systolic function. Mild diastolic dysfunction. Mild biatrial dilatation. Mild to moderate TR with moderate elevated right sided pressures. LVOT resting dynamic gradient (mean 26 mmHg). No provocative maneuvers performed. Findings are consistent with the phenotype of hypertrophic obstructive cardiomyopathy. ECG today 10/02/2017: Normal sinus rhythm Non specific ST abnormality Update 11/11/2017: She is seen in follow up. She has been feeling better. She says she recently had pneumonia, was on antibiotics. At last visit I had added metoprolol. She is still having dyspnea on exertion, better that before. No chest pain. Her lipid profile 09/04/2017: LDL 116; chol 227; HDL 60; TG 256 Echocardiogram 11/05/2017: Global left ventricular systolic function is normal (Visually estimated EF 65%). Mild left ventricular outflow tract obstruction. Moderate increase in LVOT Doppler flows with Valsalva maneuver. No regional wall motion abnormality. Grade 1, mild diastolic dysfunction (abnormal relaxation). Mild-moderate tricuspid regurgitation. Doppler studies suggest mildly elevated right sided pressures. Event monitor 10/02/2017 for 23.5 days: sinus rhythm mostly with 8 beat of accelerated junctional rhythm. Update 02/12/2018: She is seen in follow up. She is feeling a bit better but still has dyspnea on exertion. She has been found to have anemia (Hb 10.0) and will see GI for possible endoscopy. Event monitor 12/30/2017 for 24 days: sinus rhythm with rare PACs and PVCs and no significant arrhythmias. Echocardiogram 02/10/2018: Global left ventricular systolic function is normal (Visually estimated EF 65%). Concentric left ventricular hypertrophy. No regional wall motion abnormality. Moderate left ventricular outflow tract obstruction. Right ventricular systolic function appears normal. Mild-moderate tricuspid regurgitation. Doppler studies suggest mildly elevated right sided pressures. There is an LV obstruction under provocation. The max LVOT velocity is 4.6 m/sec. Gradient 84 mmHg. Doppler flows in the LVOT increased with valsalva maneuver. According to echocardiographic criteria, there is hypertrophic cardiomyopathy with obstruction. Limited echocardiogram performed to assess left ventricular outflow tract and right ventricular systolic pressure. Her septum measures about 2 cm at the base. Update 03/24/2018: She is seen in follow up. At last visit I had increased the cardizem to 360 mg daily. She says that she has been a little more short of breath on exertion. No chest pain. Echocardiogram 03/19/2018: Global left ventricular systolic function is hyperdynamic (Visually estimated EF 75%). The left ventricle is normal size. Left ventricular wall thickness is mildly increased. Mild left ventricular hypertrophy. No regional wall motion abnormality. The mitral valve is normal in mobility (more content not included)... 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 She appears to be euvolemic. Continue current antihypertensive medication and diuretic. Jan, Chronic kidney disease, stage 3 unspecified (ICD-10 - N18.30) She has a CKD due to the diabetes mellitus and hypertension. Her baseline serum creatinine is 1.1-1.3 mg/dL. She has no evidence of hematuria proteinuria on UA. Her renal ultrasound showed renal cortical thinning with no evidence of renal mass or hydronephrosis or kidney stones. I discussed with the importance of good DM and HTN control to surround the progression of CKD. I have advised her to avoid NSAIDs. Jan, Diabetes mellitus with chronic kidney disease (ICD-10 - E11.22) I have advised her to continue to follow with Dr. Mendenhall for the management. Continue low-dose of the lisinopril for renal protection. Continue Farxiga. I informed her that in future I will prescribe finerenone but due to her relatively low blood pressure we will avoid it now. Jan, Vitamin D deficiency (ICD-10 - E55.9) Her calcium and vitamin D are within the target goal. Continue oral vitamin D. Jan, Iron deficiency (ICD-10 - E61.1) She has low Iron .Continue oral iron supplement. Jan, Hyperuricemia (ICD-10 - E79.0) She has hyperuricemia due to the CKD and diuretics. Will monitor as she is asymptomatic. Will prescribe allopurinol if she gets symptoms. Jan, Hypernatremia (ICD-10 - E87.0) She has hypernatremia likely due to the hyperglycemia induced osmotic diuresis. Advised her to adequately hydrate herself. [facility] Other 09-07-2022 NoteOPERATIVE NOTE OPERATION DATE: 12/27/2021 PREOPERATIVE DIAGNOSIS: Enlarging pilar cyst of the occipital and parietal scalp. 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 PROCEDURE: Excisional biopsy of enlarging pilar cyst of the occipital and parietal scalp. SURGEON: Nalini aLnders M.D. ANESTHESIA: Local with 0.5% Marcaine plain. ESTIMATED BLOOD LOSS: Less than 3 mL. INDICATIONS AND CONSENT: Patient is a 56-year-old female with history of enlarging pilar cyst in the left occipital and right parietal scalp. Indications, risks, benefits, alternatives of proceeding with the excisional biopsy under local anesthesia were explained extensively to the patient, including risks of bleeding, infection, scarring, pain, recurrence and need for further surgery. All of her questions were answered. Informed consent was obtained. PROCEDURE: Patient brought to the operating room, placed in the right lateral decubitus position. The left occipital region was prepped and draped in the usual sterile fashion. It was anesthetized with 0.5% Marcaine plain. Incision was made over the long access of the lesion, carried down to subcutaneous using sharp dissection. A 1.5 cm pilar cyst was freed up and sent off to Pathology. Wound was irrigated. Incision was then closed with interrupted 4-0 Prolene sutures. Patient was then positioned in the supine position and the right parietal lesion was excised in identical fashion. This was approximately 1 cm in greatest diameter. It was closed in identical fashion. The patient tolerated procedure well, was discharged home in good condition, is to follow up in 10 days for suture removal and wound check. She is to call sooner with any problems or questions. CC: Shaikh Ambar M.D.[facility] [id number] Evaluation note* Encounter Date Diagnosis Assessment Notes Treatment Notes Treatment Clinical Notes Nov, Contact with and (suspected) exposure to other viral communicable diseases (ICD-10 - Z20.828) Nov, Viral infection (ICD-10 - B34.9) We will call you when the covid PCR test results return. Drink plenty of fluids and get plenty of rest. If you develop chest pain, shortness of breath, or feel like you are going to pass out then go to the ER. Follow up with your pcp as scheduled. PCR test is positive. I educated her about the risk versus benefits of starting paxlovid admitted as I believe she would be a good candidate for it given the duration of her symptoms and her age. However, patient does not feel comfortable starting the medication and would like to hold off on it. She is given return precautions. Advised her to follow-up with her family doctor in 7 to 10 days. She understands and agrees with plan. [employer] Other 08-05-2022 NoteMR#: [id number] I [facility] Pt. Name: Raquel Vila Admitted: 11/20/2021 Discharged: 11/24/2021 Date of : 1965 Physician: Eric Conte MD DISCHARGE SUMMARY FINAL DIAGNOSES: 1. Complete heart block. 2. Acute hypoxemic and hypercapnic respiratory failure requiring mechanical ventilation. 3. Chronic congestive heart failure. 4. Anion gap metabolic acidosis. 5. Transaminitis. 6. Hyperglycemia. 7. Hypertrophic cardiomyopathy. 8. Acute kidney injury. 9. Hypertension. 10. Depression history. HISTORY OF PRESENT ILLNESS AND HOSPITALIZATION COURSE: The patient is a 55-year-old female. She presented to an outside facility initially and she was found to be in complete heart block. Reported heart rate on admission was 20. The patient was initially transcutaneously paced and sent to the [facility] for further management. The patient was intubated and mechanically ventilated prior to her transfer to [facility]. The patient was admitted to the medical ICU. Her EKG was showing sinus bradycardia. Her blood pressure on admission was in the 80s systolically and she was started on Levophed. The patient was transitioned later on to dopamine infusion. She was seen by Cardiology Service during her ICU stay. The patient is on Cardizem and metoprolol and they were discontinued. She was also on Lexapro, which was held given her presentation with the arrhythmia. Bradycardia is more likely related to medication induced, this has resolved upon holding the Cardizem and the metoprolol. She was eventually transitioned to carvedilol as per Cardiology recommendations. The patient was extubated on November 23 and she was transitioned to nasal cannula. She was saturating in the high 90s on 2 L. She had a followup x-ray post extubation, which is showing no infiltration or pleural effusion. The patient reports that she had history of oxygen requirement in the past. She was evaluated on the day of discharge by respiratory therapy and she did not qualify for home O2 therapy. The patient was resumed on her congestive heart failure medications including the Lasix. She had an echocardiogram done during this admission showing an EF of 55-60 percent. The patient will need to follow up with Cardiology as an outpatient. During her hospitalization, she was also found to have transaminitis, which is likely related to the hyperperfusion status, this was resolving during her admission. Psychiatry recommended for her to be back on her Lexapro, which was discussed with the Cardiology Team and she was put back on her Lexapro. The patient had an acute kidney injury on this admission and that resolved. The patient was discharged home in stable condition on November 24, 2021. MEDICATION ON DISCHARGE: As per the medication reconciliation list. INSTRUCTIONS ON DISCHARGE: She was instructed to follow up with her PCP within a week of discharge and to follow up with Cardiology and Psychiatry Team as an outpatient. She was instructed to seek medical attention if she develop worsening of her symptoms including lightheadedness/dizziness, increased shortness of breath or chest pain. Time of discharge 50 minutes. Electronically Signed by: Eric Conte MD 11/29/2021 07:32 A Eric Conte MD Date Dict: 11/24/2021/03:25 P/Eric Conte MD Date Trans: 11/24/2021 04:50 P/jenny [id number] cc: Lisbeth Grace M.D. 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 She appears to be euvolemic. Continue current antihypertensive medication and diuretic. Jul, Chronic kidney disease, stage 3 unspecified (ICD-10 - N18.30) She has a CKD due to the diabetes mellitus and hypertension. Her baseline serum creatinine is 1.1-1.3 mg/dL. She has no evidence of hematuria proteinuria on UA. Her renal ultrasound showed renal cortical thinning with no evidence of renal mass or hydronephrosis or kidney stones. I discussed with the importance of good DM and HTN control to surround the progression of CKD. I have advised her to avoid NSAIDs. Jul, Diabetes mellitus with chronic kidney disease (ICD-10 - E11.22) Her hemoglobin A1c is above the target goal. I have advised her to continue to follow with Dr. Mendenhall for the management. I have advised her to discuss with Dr. Mendenhall about Farxiga. I have prescribed low-dose of the lisinopril for renal protection. Jul, Vitamin D deficiency (ICD-10 - E55.9) He has a vitamin D deficiency and I have prescribed oral vitamin D once weekly 50,000 unit Jul, Iron deficiency (ICD-10 - E61.1) She has low Iron .Continue oral iron supplement. Jul, Hyperuricemia (ICD-10 - E79.0) She has hyperuricemia due to the CKD and diuretics. Will monitor as she is asymptomatic. Will prescribe allopurinol if she gets symptoms. [facility] [facility] Other Evaluation + Plan note No data available for this section General Surgery [place] Evaluation noteNo InformationNort [employer] Other History general Narrative - Reported* Type Description Date Medical History 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 Medical History HYPERTENSION Medical History VITAMIN D DEFICIENCY Medical History MIXED HYPERLIPIDEMIA Medical History PNEUMONIA, PULMONARY EDEMA, O2 LOW FOUND A CLOT IN LUNG Surgical History 1 Surgical History NASAL SURGERY Surgical History TONSIL ADNOIDS REMOVED Surgical History RIGHT ROTATOR CUFF Hospitalization History SEE ABOVE Hospitalization History ABLASION FOR HEART X5 DA Y [facility] Hospitalization History PNEUMONIA, BLOOD CLOT IN THE LUNG 07/2020 [facility] Other History general Narrative - Reported* Type Description Date Medical History 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 Medical History HYPERTENSION Medical History VITAMIN D DEFICIENCY Medical History MIXED HYPERLIPIDEMIA Medical History PNEUMONIA, PULMONARY EDEMA, O2 LOW FOUND A CLOT IN LUNG Surgical History 1 Surgical History NASAL SURGERY Surgical History TONSIL ADNOIDS REMOVED Surgical History RIGHT ROTATOR CUFF Hospitalization History SEE ABOVE Hospitalization History ABLASION FOR HEART X5 DA Y [facility] Hospitalization History PNEUMONIA, BLOOD CLOT IN THE LUNG 07/2020 Hospitalization History DRUG REACTION MIXING MET OPROLOL AND LEXAPRO 11/2021 [facility] Other [facility] general Narrative - Reported* Type Description Date Medical History 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 Medical History HYPERTENSION Medical History VITAMIN D DEFICIENCY Medical History MIXED HYPERLIPIDEMIA Medical History PNEUMONIA, PULMONARY EDEMA, O2 LOW FOUND A CLOT IN LUNG Medical History [facility] 11/20/2021 UNRESPONSIVE AND LOW HEART RATE Surgical History 1 Surgical History NASAL SURGERY Surgical History TONSIL ADNOIDS REMOVED Surgical History RIGHT ROTATOR CUFF Surgical History CYST REMOVED FROM SCALP AREA Hospitalization History SEE ABOVE Hospitalization History ABLASION FOR HEART X5 DA Y [facility] Hospitalization History PNEUMONIA, BLOOD CLOT IN THE LUNG 07/2020 Hospitalization History DRUG REACTION MIXING MET OPROLOL AND LEXAPRO 11/2021 [facility] Other Hospital Discharge instructions No data available for this section General Surgery [place] [facility] note No data available for this section General Surgery [place] Summary Purpose Family History No Family History Records FoundNo Family History Records FoundNo Family History Records FoundNo Family History Records FoundNo Family History Records FoundNo Family History Records FoundNo Family History Records Found Advance Directives No Advanced Directives Records FoundNo Advanced Directives Records FoundNo Advanced Directives Records FoundNo Advanced Directives Records FoundNo Advanced Directives Records FoundNo Advanced Directives Records FoundNo Advanced Directives Records Found Additional Source Comments Care Team (unrecognized sect ion and content) Personnel Name: Lisbeth Grace MD Address: [address] [place] [address] Personnel Name: Lisbeth Grace MD Address: [address] [place] [address] [place] [address]- REASON FOR VISIT (unrecogniz ed section and content) CKDGRAY LEW FOCUS, COUGH, C ONGESTION, DIZZINESS, H/A, SINUS DRAINAGE,CKD and HTNREFILLREFILL INFORMATION SOURCE (unrecogn ized section and content) DATE CREATED AUTHOR 11/22/2021 [facility] DATE CREATED AUTHOR AUTHOR'S ORGANIZ ATION 12/01/2021 [facility] DATE CREATED AUTHOR AUTHOR'S ORGANIZ ATION 09/05/2022 [facility] DATE CREATED AUTHOR AUTHOR'S ORGANIZ ATION 11/02/2022 [facility] DATE CREATED AUTHOR AUTHOR'S ORGANIZ ATION 04/28/[address] [facility] DATE CREATED AUTHOR AUTHOR'S ORGANIZ ATION 05/08/2023 [facility] DATE CREATED AUTHOR AUTHOR'S ORGANIZ ATION 05/25/2023 [facility] FOR RECORDS PERTAINING TO PATIENTS WHO ARE OR HAVE BEEN ENROLLED IN A CHEMICAL DEPENDENCY/SUBSTANCEABUSE PROGRAM, SOME INFORMATION MAY BE OMITTED. This clinical summary was aggregated from multiple sources. Caution should be exercised in using it in the provision of clinical care. This summary normalizes information from multiple sources, and as a consequence, information in this document may materially change the coding, format and clinical context of patient data. In addition, data may be omitted in some cases. CLINICAL DECISIONS SHOULD BE BASED ON THE PRIMARY CLINICAL RECORDS. [facility] provides no warranty or guarantee of the accuracy or completeness of information in this document.
== END 2023-05-27 12:10 | disposition home or self-care (01) ==
LOC: MAMMO 12:10
PROVIDERS: PCP Internal Medicine; Visit Provider Internal Medicine
DX: Z12.31 Encounter for screening mammogram for malignant neoplasm of breast (principal); M25.561 Pain in right knee; M25.562 Pain in left knee; G89.29 Other chronic pain; M25.512 Pain in left shoulder; Z80.8 Family history of malignant neoplasm of other organs or systems
CPT/HCPCS: 73030; 73562; 77063; 77067

== ENCOUNTER 2023-06-01 09:57 | Outpatient (OUT) | payer OTHER, SELFPAY ==
--- OUTSIDE RECORDS SUMMARY | 2023-06-01 10:02 | XMS_ITS | CCD ---
Author Name Unknown Address [id number] [place] [address] Organization [facility] Care Team Providers Care It Security Manager Name Role Phone Lisbeth Grace Primary Care Physician [phone] Truman, Margarita Unavailable PROVIDER, UNKNOWN Attending Unavailable PROVIDER, UNKNOWN Admitting Unavailable ERIC CONTE Attending Unavailable KAVONALY, RAGHEBernie Admitting Unavailable SELF, REFERRED Referring Unavailable LISBETH GRACE Primary Care Unavailable Isaias Gomez Unavailable Giovana Crum Unavailable TIFFANI, DR CAMPA Admitting Unavailable MOUKARBEL, DR CAMPA Attending Unavailable MARISELUKARBEL, DR CAMPA Consulting Unavailable FAWWAD, TILLMAN H [...] Unavailable JUAN CARLOS ., BRITTNEY Admitting Unavailable [facility], [facility] Primary Care Unavailable JUAN CARLOS Tripathi, BRITTNEY Attending Unavailable JUAN CARLOS ., BRITTNEY Consulting Unavailable NILL ., DR GAYLE Admitting Unavailable NILL ., DR GAYLE Attending Unavailable NILL ., DR GAYLE Consulting Unavailable [facility], [facility] Primary Care Unavailable MAJO SRIVASTAVA Consulting Unavailable Nalini LANDERS Attending Unavailable Nalini LANDERS Attending Unavailable JANIA GUTIERREZ Attending Unavailable [facility], [facility] Referring Unavailable [facility], [facility] Primary Care Unavailable AMBAR, TILLMAN Attending Unavailable KATHERYN NIXON Attending Unavailable TIFFANI, KATHERYN Attending Unavailable KATHERYN NIXON Attending Unavailable Allergies Allergy Classification Reported Allergen(s) Allergy Type Date of Onset Reaction(s) Facility (1 source) No Known Medication Allergies; Translations: [No Known Medication Allergies] Propensity to adverse reactions (disorder) [facility] Repository Medications Current Medications Medication Drug Class(es) [...] by mouth every week Ergocalciferol 1.25 MG (85264 UT) 1 capsule Orally Q week for [...] 03-28-2022 Episodic Other aftercare (1 source) Other alf (current) drug therapy; Translations: [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 THERAPY] Onset: 01-04-2022 Episodic Other aftercare (1 source) detention (current) use of aspirin; Translations: [[facility] CURRENT USE OF ASPIRIN] Onset: 01-04-2022 Episodic Other aftercare (1 source) 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 of insulin; Translations: [[facility] CURRENT USE OF INSULIN] Onset: 01-04-2022 Episodic Other aftercare (1 source) 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 of anticoagulants; Translations: [[facility] CURRNT USE ANTICOAGULANTS] Onset: 11-22-2021 Episodic Other [...] Range Facility Office Visiton 05-24-2023 Follow-up visit [id number] Jessica Vila 1965 F Date Provider Department Center 05/24/2023 KATHERYN MATRINEZ Family History Problem Relation Age of Onset Breast cancer Mother Family Status - Relation Status Age at Mother Level of Service:90850 [place] OFFICE/OUTPATIENT ESTABLISHED MOD MDM 30 MIN Normal [facility] Office Visiton 12-07-2022 Follow-up visit [id number] Jessica Vila 1965 F Date Provider Department Center 12/07/2022 KATHERYN MARTINEZ Family History Problem Relation Age of Onset Breast cancer Mother Family Status - Relation Status Age at Mother Level of Service:73144 [place] OFFICE/OUTPATIENT ESTABLISHED LOW MDM 20-29 MIN Reason for Visit and Comments: Follow-up [882131] - 6 MONTH FOLLOW UP Normal [facility] PTH INTACTon 08-08-2022 PTH, Intact 34 pg/mL Normal 15-65 [facility] Comment on above: Performed By: #### C LIBERTAD #### [facility] [address] [place] [address] Dr. Kelsie Dominguez HEMOGRAM AND PLATELon 2022 Hematocrit (Bld) [Volume fraction] 38.1 % Normal 36.0-48.0 [facility] Comment on above: Performed By: #### H H #### [facility] [address] [place] [address] Dr. Kelsie Dominguez Hemoglobin (Bld) [Mass/Vol] 12.5 g/dL Normal 12.0-16.0 [facility] Comment on above: Performed By: #### H H #### [facility] [address] [place] [address] Dr. Kelsie Dominguez MCH (RBC) [Entitic mass] 29.8 pg Normal 26.7-34.0 [facility] Comment on above: Performed By: #### H H #### [facility] [address] [place] [address] Dr. Kelsie Dominguez MCHC (RBC) [Mass/Vol] 32.8 g/dL Normal 29.9-35.2 [facility] Comment on above: Performed By: #### H H #### [facility] [address] [place] [address] Dr. Kelsie Dominguez MCV (RBC) [Entitic vol] 90.9 fL Normal 81.0-99.0 [facility] Comment on above: Performed By: #### H H #### [facility] [address] [place] [address] Dr. Kelsie Dominguez PLT 207 103/ul Normal 150-450 [facility] Comment on above: Performed By: #### H H #### [facility] [address] [place] [address] Dr. Kelsei Dominguez RBC 4.19 106/ul Critically low 4.20-5.40 [facility] Comment on above: Performed By: #### H H #### [facility] [address] [place] [address] Dr. Kelsie Dominguez WBC 5.1 103/ul Normal 4.0-11.0 [facility] Comment on above: Performed By: #### H H #### [facility] [address] [place] [address] Dr. Kelsie Dominguez MAGNESIUMon 08-07-2022 Magnesium [Mass/Vol] 1.9 mg/dL Normal 1.8-2.4 [facility] Comment on above: Performed By: #### H H #### [facility] [address] [place] [address] Dr. Kelsie Dominguez RENAL FUNCTION PANELon 08-07 Albumin [Mass/Vol] 3.0 g/dL Critically low 3.4-5.0 [facility] Comment on above: Performed By: #### H H #### [facility] [address] [place] [address] Dr. Kelsie Dominguez Calcium [Mass/Vol] 9.1 mg/dL Normal 8.5-10.1 [facility] Comment on above: Performed By: #### H H #### [facility] [address] [place] [address] Dr. Kelsie Dominguez Chloride [Moles/Vol] 103 mmol/L Normal 98-107 [facility] Comment on above: Performed By: #### H H #### [facility] [address] [place] [address] Dr. Kelsie Dominguez CO2 [Moles/Vol] 24.9 mmol/L Normal 21.0-32.0 [facility] Comment on above: Performed By: #### H H #### [facility] [address] [place] [address] Dr. Kelsie Dominguez Creatinine [Mass/Vol] 1.75 mg/dL Critically high 0.55-1.02 [facility] Comment on above: Performed By: #### H H #### [facility] [address] [place] [address] Dr. Kelsie Domniguez EGFR-AF TRINIDADIAN 36 mL/min/1.73m2 Critically low >=60 [facility] Comment on above: Performed By: #### H H #### [facility] [address] [address] [address] Kelsie Dominguez EGFR-NON AF TRINIDADIAN 30 mL/min/1.73m2 Critically low >=60 [facility] Comment on above: Performed By: #### H H #### [facility] [address] [address] [address] Kelsie Dominguez Glucose [Mass/Vol] 222 mg/dL Critically high 74-106 [facility] Comment on above: Performed By: #### H H #### [facility] [address] [address] [address] Kelsie Dominguez Phosphate [Mass/Vol] 3.6 mg/dL Normal 2.6-4.7 [facility] Comment on above: Performed By: #### H H #### [facility] [address] [address] [address] Kelsie Dominguez Potassium [Moles/Vol] 3.6 mmol/L Normal 3.5-5.1 [facility] Comment on above: Performed By: #### H H #### [facility] [address] [address] [address] Kelsie Dominguez Sodium [Moles/Vol] 141 mmol/L Normal 136-145 [facility] Comment on above: Performed By: #### H H #### [facility] [address] [address] [address] Kelsie Dominguez Urea nitrogen [Mass/Vol] 31.0 mg/dL Critically high 7.0-18.0 [facility] Comment on above: Performed By: #### H H #### [facility] [address] [place] [address] Dr. Kelsie Dominguez UA RANDOM W/MICROSCOPICon BACTERIA NONE SEEN Normal NONE SEEN [facility] Comment on above: Performed By: #### V ITAD #### [facility] [address] [address] [address] Kelsie Dominguez Bilirubin Ql (U) Negative Normal NEGATIVE [facility] Comment on above: Performed By: #### V ITAD #### [facility] [address] [place] [address] Dr. Kelsie Dominguez CAST NONE SEEN Normal NONE SEEN [facility] Comment on above: Performed By: #### V ITAD #### [facility] [address] [place] [address] Dr. Kelsie Dominguez Clarity (U) CLEAR Normal CLEAR [facility] Comment on above: Performed By: #### V ITAD #### [facility] [address] [place] [address] Dr. Kelsie Dominguez Color (U) LT. YELLOW Normal YELLOW [facility] Comment on above: Performed By: #### V ITAD #### [facility] [address] [place] [address] Dr. Kelsie Dominguez Crystals LM Nom (Urine sed) NONE SEEN Normal NONE SEEN [facility] Comment on above: Performed By: #### V ITAD #### [facility] [address] [place] [address] Dr. Kelsie Dominguez Epithelial cells LM Ql (Urine sed) RARE Normal NONE SEEN /RARE [facility] Comment on above: Performed By: #### V ITAD #### [facility] [address] [place] [address] Dr. Kelsie Dominguez Glucose Ql (U) 250 mg/dl Abnormal NEGATIVE [facility] Comment on above: Performed By: #### V ITAD #### [facility] [address] [place] [address] Dr. Kelsie Dominguez Hemoglobin Ql (U) SMALL Abnormal NEGATIVE [facility] Comment on above: Performed By: #### V ITAD #### [facility] [address] [place] [address] Dr. Kelsie Dominguez Ketones Ql (U) Negative Normal NEGATIVE [facility] Comment on above: Performed By: #### V ITAD #### [facility] [address] [place] [address] Dr. Kelsie Dominguez LEUKOCYTES TRACE Abnormal NEGATIVE [facility] Comment on above: Performed By: #### V ITAD #### [facility] [address] [place] [address] Dr. Kelsie Dominguez MUCOUS TRACE Abnormal NONE SEEN [facility] Comment on above: Performed By: #### V ITAD #### [facility] [address] [place] [address] Dr. Kelsie Dominguez Nitrite Ql (U) Negative Normal NEGATIVE [facility] Comment on above: Performed By: #### V ITAD #### [facility] [address] [place] [address] Dr. Kelsie Dominguez pH (U) 6.0 [pH] Normal 5-9 [facility] Comment on above: Performed By: #### V ITAD #### [facility] [address] [place] [address] Dr. Kelsie Dominguez RBC 5-10 Abnormal 0-2 [facility] Comment on above: Performed By: #### V ITAD #### [facility] [address] [place] [address] Dr. Kelsie Dominguez SPEC GRAVITY 1.010 Normal 1.005-<=1.02 5 [facility] Comment on above: Performed By: #### V ITAD #### [facility] [address] [place] [address] Dr. Kelsie Dominguez UA PROTEIN Negative Normal NEGATIVE/ TRACE [facility] Comment on above: Performed By: #### V ITAD #### [facility] [address] [place] [address] Dr. Kelsie Dominguez Urobilinogen Qn (U) 0.2 {Miguel'U}/dL Normal 0.2 - 1. 0 [facility] Comment on above: Performed By: #### V ITAD #### [facility] [address] [place] [address] Dr. Kelsie Dominguez WBC 10-20 Abnormal NONE SEEN [facility] Comment on above: Performed By: #### V ITAD #### [facility] [address] [place] [address] Dr. Kelsei Dominguez URIC ACID SERUMon 08-07-2022 Urate [Mass/Vol] 10.2 mg/dL Critically high 2.6-6.0 [facility] Comment on above: Performed By: #### H H #### [facility] [address] [address] [address] Kelsie Dominguez URINE T PROTEIN CREAT RATIOo n 08-07-2022 Protein (U) [Mass/Vol] 25.3 mg/dL Critically high <=12.0 [facility] Comment on above: Performed By: #### V ITAD #### [facility] [address] [address] [address] Kelsie Dominguez UR PROT CREAT RAT 0.21 Normal [facility] Comment on above: Performed By: #### V ITAD #### [facility] [address] [place] [address] Dr. Kelsie Dominguez URINE CREAT 121.04 mg/dL Normal 20.00-300.00 [facility] Comment on above: Performed By: #### V ITAD #### [facility] [address] [address] [address] Kelsie Dominguez VITAMIN D 25 OHon 08-07-2022 VIT D 25-OH 30.9 ng/mL Normal [facility] Comment on above: Performed By: #### V ITAD #### [facility] [address] [place] [address] Dr. Kelsie Dominguez VIT D RANGES SEE BELOW Normal [facility] Comment on above: Result Comment: <20 ng/mL Vit D deficient 20 - <30 ng/mL Vit D insufficient 30 - 100 ng/mL Vit D sufficient >100 ng/mL Potential Toxicity Performed By: #### V ITAD #### [facility] [address] [place] [address] Dr. Kelsie Dominguez Office Visiton 06-11-2022 Follow-up visit [id number] Jessica Vila 1965 F Date Provider Department Center 06/11/2022 KATHERYN MARTINEZ [facility] Family History Problem Relation Age of Onset Breast cancer Mother Family Status - Relation Status Age at Mother Level of Service:23866 [place] OFFICE/OUTPATIENT ESTABLISHED LOW MDM 20-29 MIN Reason for Visit and Comments: Hyperlipidemia [182] Hypertension [665049] Cardiomyopathy [104] Normal [facility] MG MAMM SCREEN 3D AARON CADon 02-14-2022 MG MAMM SCREEN 3D AARON CAD Patient: RAQUEL VILA Exam Date: 02/14/2022 : 1965 Gender:F Ordering : DR. SHREYAS LONG M.D. Admission #: [id number] Family : Order #: [id number] CLICK HERE TO VIEW EXAM RADIOLOGY REPORT [...] unknown cancer at age 72. LOCATION: [facility] BREAST COMPOSITION: Scattered areas fibroglandular density. [...] MD on 02/14/2022 at 11:22 Normal [facility] XR DEXA BONE DENSITYon 02-14 XR [...] by: AMARA LANEY Date: 2022-02-14 21:14 Normal [facility] PTH INTACTon 02-02-2022 PTH, Intact 23 pg/mL Normal 15-65 [facility] Comment on above: Performed By: #### C LIBERTAD #### [facility] [address] [place] [address] Dr. Kelsie Dominguez FERRITINon 01-31-2022 Ferritin [Mass/Vol] 96.0 ng/mL Normal 8.0-252.0 [facility] Comment on above: Performed By: #### C LIBERTAD #### [facility] [address] [place] [address] Dr. Kelsie Dominguez HEMOGRAM AND PLATELon 2021 Hematocrit (Bld) [Volume fraction] 38.7 % Normal 36.0-48.0 [facility] Comment on above: Performed By: #### H H #### [facility] [address] [place] [address] Dr. Kelsie Dominguez Hemoglobin (Bld) [Mass/Vol] 12.4 g/dL Normal 12.0-16.0 [facility] Comment on above: Performed By: #### H H #### [facility] [address] [place] [address] Dr. Kelsie Dominguez MCH (RBC) [Entitic mass] 31.3 pg Normal 26.7-34.0 [facility] Comment on above: Performed By: #### H H #### [facility] [address] [place] [address] Dr. Kelsie Dominguez MCHC (RBC) [Mass/Vol] 32.0 g/dL Normal 29.9-35.2 [facility] Comment on above: Performed By: #### H H #### [facility] [address] [place] [address] Dr. Kelsie Dominguez MCV (RBC) [Entitic vol] 97.7 fL Normal 81.0-99.0 [facility] Comment on above: Performed By: #### H H #### [facility] [address] [address] [address] Kelsie Dominguez PLT 157 103/ul Normal 150-450 [facility] Comment on above: Performed By: #### H H #### [facility] [address] [address] [address] Kelsie Dominguez RBC 3.96 106/ul Critically low 4.20-5.40 [facility] Comment on above: Performed By: #### H H #### [facility] [address] [address] [address] Kelsie Dominguez WBC 6.8 103/ul Normal 4.0-11.0 [facility] Comment on above: Performed By: #### H H #### [facility] [address] [address] [address] Kelsie Dominguez IRON AND TIBCon 01-31-2022 % SATURATION 16.4 % Normal [facility] Comment on above: Performed By: #### C LIBERTAD #### [facility] [address] [place] [address] Dr. Kelsie Dominguez Iron [Mass/Vol] 44.0 ug/dL Critically low 50.0-170.0 [facility] Comment on above: Performed By: #### C LIBERTAD #### [facility] [address] [address] [address] Kelsie Dominguez TIBC DIRECT 268.0 ug/dL Normal 250.0-450.0 [facility] Comment on above: Performed By: #### C LIBERTAD #### [facility] [address] [place] [address] Dr. Kelsie Dominguez MAGNESIUMon 01-31-2022 Magnesium [Mass/Vol] 1.9 mg/dL Normal 1.8-2.4 [facility] Comment on above: Performed By: #### M Mary, RENAL, URIC #### [facility] [address] [place] [address] Dr. Kelsie Dominguez RENAL FUNCTION PANELon 01-31 Albumin [Mass/Vol] 3.3 g/dL Critically low 3.4-5.0 [facility] Comment on above: Performed By: #### M G, RENAL, URIC #### [facility] [address] [address] [address] Kelsie Dominguez Calcium [Mass/Vol] 9.3 mg/dL Normal 8.5-10.1 [facility] Comment on above: Performed By: #### M G, RENAL, URIC #### [facility] [address] [address] [address] Kelsie Dominguez Chloride [Moles/Vol] 110 mmol/L Critically high 98-107 [facility] Comment on above: Performed By: #### M G, RENAL, URIC #### [facility] [address] [address] [address] Kelsie Dominguez CO2 [Moles/Vol] 24.0 mmol/L Normal 21.0-32.0 [facility] Comment on above: Performed By: #### M G, RENAL, URIC #### [facility] [address] [place] [address] Dr. Kelsie Dominguez Creatinine [Mass/Vol] 1.37 mg/dL Critically high 0.55-1.02 [facility] Comment on above: Performed By: #### M G, RENAL, URIC #### [facility] [address] [place] [address] Dr. Kelsie Dominguez EGFR-AF TRINIDADIAN 48 mL/min/1.73m2 Critically low >=60 [facility] Comment on above: Performed By: #### M G, RENAL, URIC #### [facility] [address] [place] [address] Dr. Kelsie Dominguez EGFR-NON AF TRINIDADIAN 40 mL/min/1.73m2 Critically low >=60 [facility] Comment on above: Performed By: #### M G, RENAL, URIC #### [facility] [address] [address] [address] Kelsie Dominguez Glucose [Mass/Vol] 280 mg/dL Critically high 74-106 [facility] Comment on above: Performed By: #### M G, RENAL, URIC #### [facility] [address] [address] [address] Kelsie Dominguez Phosphate [Mass/Vol] 3.7 mg/dL Normal 2.6-4.7 [facility] Comment on above: Performed By: #### M G, RENAL, URIC #### [facility] [address] [place] [address] Dr. Kelsie Dominguez Potassium [Moles/Vol] 4.4 mmol/L Normal 3.5-5.1 [facility] Comment on above: Performed By: #### M G, RENAL, URIC #### [facility] [address] [place] [address] Dr. Kelsie Dominguez Sodium [Moles/Vol] 146 mmol/L Critically high 136-145 [facility] Comment on above: Performed By: #### M G, RENAL, URIC #### [facility] [address] [place] [address] Dr. Kelsie Dominguez Urea nitrogen [Mass/Vol] 36.0 mg/dL Critically high 7.0-18.0 [facility] Comment on above: Performed By: #### M G, RENAL, URIC #### [facility] [address] [place] [address] Dr. Kelsie Dominguez UA RANDOM W/MICROSCOPICon BACTERIA SMALL Abnormal NONE SEEN [facility] Comment on above: Performed By: #### V ITAD #### [facility] [address] [place] [address] Dr. Kelsie Dominguez Bilirubin Ql (U) Negative Normal NEGATIVE [facility] Comment on above: Performed By: #### V ITAD #### [facility] [address] [place] [address] Dr. Kelsie Dominguez CAST NONE SEEN Normal NONE SEEN [facility] Comment on above: Performed By: #### V ITAD #### [facility] [address] [place] [address] Dr. Kelsie Dominguez Clarity (U) CLEAR Normal CLEAR [facility] Comment on above: Performed By: #### V ITAD #### [facility] [address] [place] [address] Dr. Kelsie Dominguez Color (U) LT. YELLOW Normal YELLOW [facility] Comment on above: Performed By: #### V ITAD #### [facility] [address] [place] [address] Dr. Kelsie Dominguez Crystals LM Nom (Urine sed) NONE SEEN Normal NONE SEEN [facility] Comment on above: Performed By: #### V ITAD #### [facility] [address] [place] [address] Dr. Kelsie Dominguez Epithelial cells LM Ql (Urine sed) FEW Abnormal NONE SEEN /RARE [facility] Comment on above: Performed By: #### V ITAD #### [facility] [address] [place] [address] Dr. Kelsie Dominguez Glucose Ql (U) 500 mg/dl Abnormal NEGATIVE [facility] Comment on above: Performed By: #### V ITAD #### [facility] [address] [place] [address] Dr. Kelsie Dominguez Hemoglobin Ql (U) LARGE Abnormal NEGATIVE [facility] Comment on above: Performed By: #### V ITAD #### [facility] [address] [place] [address] Dr. Kelsie Dominguez Ketones Ql (U) Negative Normal NEGATIVE [facility] Comment on above: Performed By: #### V ITAD #### [facility] [address] [place] [address] Dr. Kelsie Dominguez LEUKOCYTES SMALL Abnormal NEGATIVE [facility] Comment on above: Performed By: #### V ITAD #### [facility] [address] [place] [address] Dr. Kelsie Dominguez MUCOUS NONE SEEN Normal NONE SEEN [facility] Comment on above: Performed By: #### V ITAD #### [facility] [address] [place] [address] Dr. Kelsie Dominguez Nitrite Ql (U) Negative Normal NEGATIVE [facility] Comment on above: Performed By: #### V ITAD #### [facility] [address] [place] [address] Dr. Kelsie Dominguez pH (U) 6.0 [pH] Normal 5-9 [facility] Comment on above: Performed By: #### V ITAD #### [facility] [address] [place] [address] Dr. Kelsie Dominguez RBC 20-50 Abnormal 0-2 [facility] Comment on above: Performed By: #### V ITAD #### [facility] [address] [place] [address] Dr. Kelsie Dominguez SPEC GRAVITY 1.020 Normal 1.005-<=1.02 5 [facility] Comment on above: Performed By: #### V ITAD #### [facility] [address] [address] [address] Kelsie Dominguez UA PROTEIN 30 mg/dl Abnormal NEGATIVE/ TRACE [facility] Comment on above: Performed By: #### V ITAD #### [facility] [address] [place] [address] Dr. Kelsie Dominguez Urobilinogen Qn (U) 0.2 {Miguel'U}/dL Normal 0.2 - 1. 0 [facility] Comment on above: Performed By: #### V ITAD #### [facility] [address] [place] [address] Dr. Kelsie Dominguez WBC 20-50 Abnormal NONE SEEN [facility] Comment on above: Performed By: #### V ITAD #### [facility] [address] [place] [address] Dr. Kelsie Dominguez URIC ACID SERUMon 01-31-2022 Urate [Mass/Vol] 9.4 mg/dL Critically high 2.6-6.0 [facility] Comment on above: Performed By: #### M G, RENAL, URIC #### [facility] [address] [place] [address] Dr. Kelsie Dominguez URINE T PROTEIN CREAT RATIOo n 01-31-2022 Protein (U) [Mass/Vol] 56.9 mg/dL Critically high <=12.0 [facility] Comment on above: Performed By: #### H H #### [facility] [address] [place] [address] Dr. Kelsie Dominguez UR PROT CREAT RAT 0.42 Normal The [facility] Comment on above: Performed By: #### H H #### [facility] [address] [place] [address] Dr. Kelsie Dominguez URINE CREAT 136.85 mg/dL Normal 20.00-300.00 [facility] Comment on above: Performed By: #### H H #### [facility] [address] [address] [address] Kelsie Dominguez VITAMIN D 25 OHon 01-31-2022 VIT D 25-OH 32.0 ng/mL Normal [facility] Comment on above: Performed By: #### C LIBERTAD #### [facility] [address] [address] [address] Kelsie Dominguez VIT D RANGES SEE BELOW Normal [facility] Comment on above: Result Comment: <20 ng/mL Vit D deficient 20 - <30 ng/mL Vit D insufficient 30 - 100 ng/mL Vit D sufficient >100 ng/mL Potential Toxicity Performed By: #### C LIBERTAD #### [facility] [address] [address] [address] Kelsie Dominguez Provider [facility] Provider Letter [facility] January 11, 2022 RAQUEL VILA [address] [place] [address] RAQUEL VILA 1965 To Whom It May Concern, Please excuse above patient from work 01/10/2022 due to doctor office appointment. . Sincerely, Dr. Nalini Landers MD General Surgery [facility] Ambulatory Visit Summaryon 0 01-10-2022 Ambulatory Visit [...] treatment for. Anticoagulated Left axillary abscess Normal [facility] General Surgery Office/Clini c Noteon 01-10-2022 General [...] inactivated - Not Given Patient Refuses Normal [facility] Comment on above: Result Comment: Elec tronically Signed By: SHAHEED ARAIZA, Nalini Feng\Date and Time Signed: 01/10/22 17:59 EDT Pathology Noteon 01-04-2022 Pathology Note [id number]# 1.00CD:127 Normal [facility] Operative Reporton Operative Report [id number]#1 .00CD:127 Normal [facility] Consultation Noteon 12-27-19 Consultation Note [id number]#1 .00CD:127 Normal [facility] SARS-CoV-2 (COVID-19) RNA NA A+probe Ql (Resp)on 12-06-2021 SARS-CoV-2 (COVID-19) RNA SUZANNA+probe Ql (Unsp spec) Positive [employer] Other Physician Referralon 022 Physician Referral [id number] .00CD:127 Normal [facility] Lab Reportson 12-01-2021 Lab Reports [id number] .00CD:127 Normal [facility] BASIC METABOLIC PANELon Calcium [Mass/Vol] 8.7 mg/dL Normal 8.6-10.3 [facility] Comment on above: Order Comment: No: D o not add to previous draw Performed By: #### 8 4511 #### [facility] [address] [place] [address], [facility] Chloride [Moles/Vol] 104 mmol/L Normal 98-107 [facility] Comment on above: Order Comment: No: D o not add to previous draw Performed By: #### 8 4511 #### [facility] [address] [place] [address], [facility] CO2 [Moles/Vol] 27 mmol/L Normal 21-31 [facility] Comment on above: Order Comment: No: D o not add to previous draw Performed By: #### 8 4511 #### [facility] [address] [place] [address], [facility] Creatinine [Mass/Vol] 0.85 mg/dL Normal 0.60-1.20 [facility] Comment on above: Order Comment: No: D o not add to previous draw Performed By: #### 8 4511 #### [facility] [address] [place] [address], [facility] GFR/1.73 sq M.predicted among non-blacks MDRD (S/P/Bld) [Vol rate/Area] mL/min/{1.73_m2} Normal >60 [facility] Comment on above: Order Comment: No: D o not add to previous draw Result Comment: [facility]'s estimated glomerular filtration rate (eGFR) will no [...] individuals. Performed By: #### 8 4511 #### [facility] [address] [place] [address], [facility] Glucose [Mass/Vol] 150 mg/dL High 70-100 [facility] Comment on above: Order Comment: No: D o not add to previous draw Performed By: #### 8 4511 #### [facility] [address] [place] [address], [place] Potassium [Moles/Vol] 4.3 mmol/L Normal 3.5-5.1 [facility] Comment on above: Order Comment: No: D o not add to previous draw Performed By: #### 8 4511 #### [facility] [address] [place] [address], [place] Sodium [Moles/Vol] 139 mmol/L Normal 136-145 The [facility] Comment on above: Order Comment: No: D o not add to previous draw Performed By: #### 8 4511 #### [facility] [address] [place] [address], [facility] Urea nitrogen [Mass/Vol] 11 mg/dL Normal 7-25 [facility] Comment on above: Order Comment: No: D o not add to previous draw Performed By: #### 8 4511 #### [facility] [address] [place] [address], [place] POC GLUCOSE LABon 11-24-2021 Glucose [Mass/Vol] 176 mg/dL High 70-100 The [facility] Comment on above: Performed By: #### 8 5499 #### [facility] [address] [place] [address], [place] Glucose [Mass/Vol] 141 mg/dL High 70-100 [facility] Comment on above: Performed By: #### 8 5499 #### [facility] [address] [place] [address], [place] Glucose [Mass/Vol] 147 mg/dL High 70-100 [facility] Comment on above: Performed By: #### 8 5499 #### [facility] [address] [place] [address], [facility] BASIC METABOLIC PANELon 08-0 Calcium [Mass/Vol] 8.2 mg/dL Low 8.6-10.3 [facility] Comment on above: Order Comment: RESUL TS CHECKED AND CALLED. ACCURATELY READ BACK BY Jina TAVAREZ ED, RN Performed By: #### 8 4511 #### [facility] [address] [place] [address], [place] Chloride [Moles/Vol] 106 mmol/L Normal 98-107 [facility] Comment on above: Order Comment: RESUL TS CHECKED AND CALLED. ACCURATELY READ BACK BY Jina TAVAREZ ED RN Performed By: #### 8 4511 #### [facility] [address] [place] [address], [facility] CO2 [Moles/Vol] 29 mmol/L Normal 21-31 The [facility] Comment on above: Order Comment: RESUL TS CHECKED AND CALLED. ACCURATELY READ BACK BY Jina TAVAREZ ED RN Performed By: #### 8 4511 #### [facility] [address] [place] [address], [facility] Creatinine [Mass/Vol] 1.04 mg/dL Normal 0.60-1.20 [facility] Comment on above: Order Comment: RESUL TS CHECKED AND CALLED. ACCURATELY READ BACK BY Jina TAVAREZ ED RN Performed By: #### 8 4511 #### [facility] [address] [place] [address], [facility] GFR/1.73 sq M.predicted among non-blacks MDRD (S/P/Bld) [Vol rate/Area] mL/min/{1.73_m2} Normal >60 [facility] Comment on above: Order Comment: RESUL TS CHECKED AND CALLED. ACCURATELY READ BACK BY Jina TAVAREZ ED, RN Result Comment: [facility]'s estimated glomerular filtration rate (eGFR) will no [...] individuals. Performed By: #### 8 4511 #### [facility] [address] [place] [address], [facility] Glucose [Mass/Vol] 124 mg/dL High 70-100 [facility] Comment on above: Order Comment: RESUL TS CHECKED AND CALLED. ACCURATELY READ BACK BY Jina TAVAREZ ED, RN Performed By: #### 8 4511 #### [facility] [address] Potassium [Moles/Vol] 3.3 mmol/L Low 3.5-5.1 [facility] Comment on above: Order Comment: RESUL TS CHECKED AND CALLED. ACCURATELY READ BACK BY Jina TAVAREZ ED RN Performed By: #### 8 4511 #### [facility] [address] [facility] [address] Sodium [Moles/Vol] 145 mmol/L Normal 136-145 The [facility] Comment on above: Order Comment: RESUL TS CHECKED AND CALLED. ACCURATELY READ BACK BY Jina TAVAREZ ED RN Performed By: #### 8 4511 #### [facility] [address] Urea nitrogen [Mass/Vol] 15 mg/dL Normal 7-25 [facility] Comment on above: Order Comment: RESUL TS CHECKED AND CALLED. ACCURATELY READ BACK BY Jina TAVAREZ ED RN Performed By: #### 8 4511 #### [facility] [address] CBC W/DIFFon 11-23-2021 ABS IMM GRANS 0.0 10*3/uL Normal 0.0-0.2 The [facility] Comment on above: Order Comment: No: D o not add to previous draw Performed By: #### 8 4511 #### [facility] [address] [place] [address], [facility] ABS NEUTROPHILS 4.5 10*3/uL Normal 1.6-7.6 The [facility] Comment on above: Order Comment: No: D o not add to previous draw Performed By: #### 8 4511 #### [facility] [address] [place] [address], [facility] Basophils (Bld) [#/Vol] 0.0 10*3/uL Normal 0.0-0.2 [facility] Comment on above: Order Comment: No: D o not add to previous draw Performed By: #### 8 4511 #### [facility] [address] [place] [address], [place] Basophils/100 WBC (Bld) 0.6 % Normal 0.0-1.0 [facility] Comment on above: Order Comment: No: D o not add to previous draw Performed By: #### 8 4511 #### [facility] [address] [place] [address], [place] Eosinophils (Bld) [#/Vol] 0.1 10*3/uL Normal 0.0-0.5 [facility] Comment on above: Order Comment: No: D o not add to previous draw Performed By: #### 8 4511 #### [facility] [address] [place] [address], [facility] Eosinophils/100 WBC (Bld) 1.7 % Normal 0.0-6.0 [facility] Comment on above: Order Comment: No: D o not add to previous draw Performed By: #### 8 4511 #### [facility] [address] [place] [address], [facility] Erythrocyte distribution width (RBC) [Ratio] 14.4 % Normal 11.5-15.0 [facility] Comment on above: Order Comment: No: D o not add to previous draw Performed By: #### 8 4511 #### [facility] [address] [place] [address], [place] Hematocrit (Bld) [Volume fraction] 32.1 % Low 36.0-45.0 [facility] Comment on above: Order Comment: No: D o not add to previous draw Performed By: #### 8 4511 #### [facility] [address] [place] [address], [place] Hemoglobin (Bld) [Mass/Vol] 10.5 g/dL Low 12.0-15.0 [facility] Comment on above: Order Comment: No: D o not add to previous draw Performed By: #### 8 4511 #### [facility] [address] [place] [address], [facility] IMMATURE GRANS 0.5 % Normal 0.0-1.0 [facility] Comment on above: Order Comment: No: D o not add to previous draw Performed By: #### 8 4511 #### [facility] [address] [place] [address], [facility] Lymphocytes (Bld) [#/Vol] 1.1 10*3/uL Low 1.2-4.0 [facility] Comment on above: Order Comment: No: D o not add to previous draw Performed By: #### 8 4511 #### [facility] [address] [place] [address], [facility] Lymphocytes/100 WBC (Bld) 17.4 % Low 20.0-45.0 [facility] Comment on above: Order Comment: No: D o not add to previous draw Performed By: #### 8 4511 #### [facility] [address] [place] [address], [facility] MCH (RBC) [Entitic mass] 31.8 pg Normal 27.0-33.0 [facility] Comment on above: Order Comment: No: D o not add to previous draw Performed By: #### 8 4511 #### [facility] [address] [place] [address], [facility] MCHC (RBC) [Mass/Vol] 32.7 g/dL Normal 32.0-35.0 [facility] Comment on above: Order Comment: No: D o not add to previous draw Performed By: #### 8 4511 #### [facility] [address] [place] [address], [facility] MCV (RBC) [Entitic vol] 97.3 fL Normal 82.0-98.0 [facility] Comment on above: Order Comment: No: D o not add to previous draw Performed By: #### 8 4511 #### [facility] [address] [place] [address], [facility] Monocytes (Bld) [#/Vol] 0.7 10*3/uL Normal 0.1-1.0 [facility] Comment on above: Order Comment: No: D o not add to previous draw Performed By: #### 8 4511 #### [facility] [address] [place] [id number], [facility] MONOS 10.5 % Normal 5.0-12.0 [facility] Comment on above: Order Comment: No: D o not add to previous draw Performed By: #### 8 4511 #### [facility] [address] [place] [address], [facility] Neutrophils/100 WBC (Bld) 69.3 % Normal 40.0-72.0 [facility] Comment on above: Order Comment: No: D o not add to previous draw Performed By: #### 8 4511 #### [facility] [address] [place] [address], [facility] Nucleated RBC/100 WBC (Bld) [Ratio] 0 % Normal 0-0 [facility] Comment on above: Order Comment: No: D o not add to previous draw Performed By: #### 8 4511 #### [facility] [address] [place] [id number], [place] PLAT CNT 146 10*3/uL Low 150-400 The [facility] Comment on above: Order Comment: No: D o not add to previous draw Performed By: #### 8 4511 #### [facility] [address] [place] [id number], [facility] RBC (Bld) [#/Vol] 3.30 10*6/uL Low 3.80-5.00 The [facility] Comment on above: Order Comment: No: D o not add to previous draw Performed By: #### 8 4511 #### [facility] [address] [place] [address], [place] WBC (Bld) [#/Vol] 6.48 10*3/uL Normal 4.00-10.60 The [facility] Comment on above: Order Comment: No: D o not add to previous draw Performed By: #### 8 4511 #### [facility] [address] [place] [address], [place] MAGNESIUM BLOODon 11-23-2021 Magnesium [Mass/Vol] 1.8 mg/dL Low 1.9-2.7 [facility] Comment on above: Order Comment: RESUL TS CHECKED AND CALLED. ACCURATELY READ BACK BY Jina TAVAREZ ED, RN Performed By: #### 8 4511 #### [facility] [address] [place] [address], [place] POC GLUCOSE LABon 11-23-2021 Glucose [Mass/Vol] 175 mg/dL High 70-100 The [facility] Comment on above: Performed By: #### 8 5499 ####[facility] [place] [address], [place] Glucose [Mass/Vol] 148 mg/dL High 70-100 The [facility] Comment on above: Performed By: #### 8 4511 #### [facility] [address] [place] [address], [place] Glucose [Mass/Vol] 115 mg/dL High 70-100 The [facility] Comment on above: Performed By: #### 8 5499 #### [facility] [address] [place] [address], [place] Glucose [Mass/Vol] 123 mg/dL High 70-100 The [facility] Comment on above: Performed By: #### 8 5499 #### [facility] [address] [place] [address], [place] PORTABLE CHEST 1 VIEWon 080 4-2022 PORTABLE CHEST 1 VIEW [facility] Department of Radiology [address] [place] [address] Patient Name: RAQUEL VILA : 1965 Sex: F Age: Race: White Pt. Location: [place] [address] Patient Status: I Ordered Date: 11/23/2021 12:10:00 [...] process Electronically signed: Maggie Lynne. Transcribed by: [email or web address], User Resident: Electronically Signed by: MAGGIE LYNNE @ 11/23/2021 01:05 PM Normal [facility] Comment on above: Order Comment: Atele ctasis ARTERIAL BLOOD GAS WITH ICAo n 11-22-2021 BASE EXCESS 2 mmol/L Normal -2-3 [facility] Comment on above: Performed By: #### 8 4511 #### [facility] [address] [place] [address], [facility] DELIVERY SYSTEMS VENTILATOR Normal The [facility] Comment on above: Performed By: #### 8 4511 #### [facility] [address] [place] [address], [place] FIO2 40 % Normal [facility] Comment on above: Performed By: #### 8 4511 #### [facility] [address] [place] [address], [facility] HCO3 (Bld) [Moles/Vol] 27 mmol/L Normal 21-28 [facility] Comment on above: Performed By: #### 8 4511 #### [facility] [address] [place] [address], [facility] IONIZED CALCIUM 1.16 mmol/L Normal 1.13-1.32 The [facility] Comment on above: Performed By: #### 8 4511 #### [facility] [address] [place] [address], [place] MIN VOLUME 8.1 Normal [facility] Comment on above: Performed By: #### 8 4511 #### [facility] [address] [place] [address], [facility] MODALITY AC-ASSIST CONTROL Normal The [facility] Comment on above: Performed By: #### 8 4511 #### [facility] [address] [place] [address], [place] Oxygen (Bld) [Partial pressure] 85 mm[Hg] Normal 83-108 [facility] Comment on above: Performed By: #### 8 4511 #### [facility] [address] [place] [address], [place] Oxygen saturation in Blood 97.0 % Normal 94.0-97.0 [facility] Comment on above: Performed By: #### 8 4511 #### [facility] [address] [place] [address], [place] PCO2 40 mmHg Normal 35-45 [facility] Comment on above: Performed By: #### 8 4511 #### [facility] [address] [place] [address], [place] PEEP 8.0 CMH20 Normal [facility] Comment on above: Performed By: #### 8 4511 #### [facility] [address] [place] [address], [place] PF RATIO 215 mmHg Normal [facility] Comment on above: Performed By: #### 8 4511 #### [facility] [address] [place] [address], [place] pH (Bld) 7.43 [pH] Normal 7.35-7.45 [facility] Comment on above: Performed By: #### 8 4511 #### [facility] [address] [place] [address], [place] Respiratory rate 18 /min Normal [facility] Comment on above: Performed By: #### 8 4511 #### [facility] [address] [place] [address], [place] TIDAL VOLUME (VT) CC 450 Normal [facility] Comment on above: Performed By: #### 8 4511 #### [facility] [address] [place] [address], [place] CBC COMPLETE BLOOD COUNTon 0 11-22-2021 Erythrocyte distribution width (RBC) [Ratio] 14.6 % Normal 11.5-15.0 [facility] Comment on above: Order Comment: No: D o not add to previous draw Performed By: #### 8 4511 #### [facility] [address] [place] [address], [place] Hematocrit (Bld) [Volume fraction] 32.0 % Low 36.0-45.0 [facility] Comment on above: Order Comment: No: D o not add to previous draw Performed By: #### 8 4511 #### [facility] [address] [place] [id number], [facility] Hemoglobin (Bld) [Mass/Vol] 10.6 g/dL Low 12.0-15.0 [facility] Comment on above: Order Comment: No: D o not add to previous draw Performed By: #### 8 4511 #### [facility] [address] [place] [address], [facility] MCH (RBC) [Entitic mass] 31.6 pg Normal 27.0-33.0 [facility] Comment on above: Order Comment: No: D o not add to previous draw Performed By: #### 8 4511 #### [facility] [address] [place] [address], [facility] MCHC (RBC) [Mass/Vol] 33.1 g/dL Normal 32.0-35.0 [facility] Comment on above: Order Comment: No: D o not add to previous draw Performed By: #### 8 4511 #### [facility] [address] [place] [address], [facility] MCV (RBC) [Entitic vol] 95.5 fL Normal 82.0-98.0 [facility] Comment on above: Order Comment: No: D o not add to previous draw Performed By: #### 8 4511 #### [facility] [address] [facility] [place] [address], [facility] Nucleated RBC/100 WBC (Bld) [Ratio] 0 % Normal 0-0 [facility] Comment on above: Order Comment: No: D o not add to previous draw Performed By: #### 8 4511 #### [facility] [address] [place] [address], [facility] PLAT CNT 147 10*3/uL Low 150-400 The [facility] Comment on above: Order Comment: No: D o not add to previous draw Performed By: #### 8 4511 #### [facility] [address] [place] [address], [facility] RBC (Bld) [#/Vol] 3.35 10*6/uL Low 3.80-5.00 The [facility] Comment on above: Order Comment: No: D o not add to previous draw Performed By: #### 8 4511 #### [facility] [address] [place] [address], [place] WBC (Bld) [#/Vol] 7.77 10*3/uL Normal 4.00-10.60 The [facility] Comment on above: Order Comment: No: D o not add to previous draw Performed By: #### 8 4511 #### [facility] [address] [place] [address], [facility] COMP METABOLIC PANELon 11-22 Albumin [Mass/Vol] 3.4 g/dL Low 3.5-5.7 [facility] Comment on above: Order Comment: No: D o not add to previous draw Performed By: #### 8 4511 #### [facility] [address] [place] [address], [facility] ALKALINE PHOSPH 134 IU/L High 34-104 The [facility] Comment on above: Order Comment: No: D o not add to previous draw Performed By: #### 8 4511 #### [facility] [address] [place] [address], [place] ALT [Catalytic activity/Vol] 400 U/L Critically high 7-52 [facility] Comment on above: Order Comment: No: D o not add to previous draw Performed By: #### 8 4511 #### [facility] [address] [place] [address], [place] AST [Catalytic activity/Vol] 306 U/L High 13-39 [facility] Comment on above: Order Comment: No: D o not add to previous draw Performed By: #### 8 4511 #### [facility] [address] [place] [address], [place] Bilirubin [Mass/Vol] 0.4 mg/dL Normal 0.3-1.0 [facility] Comment on above: Order Comment: No: D o not add to previous draw Performed By: #### 8 4511 #### [facility] [address] [place] [address], [place] Calcium [Mass/Vol] 8.4 mg/dL Low 8.6-10.3 The [facility] Comment on above: Order Comment: No: D o not add to previous draw Performed By: #### 8 4511 #### [facility] [address] [place] [address], [place] Chloride [Moles/Vol] 109 mmol/L High 98-107 [facility] Comment on above: Order Comment: No: D o not add to previous draw Performed By: #### 8 4511 #### [facility] [address] [place] [address], [place] CO2 [Moles/Vol] 25 mmol/L Normal 21-31 The [facility] Comment on above: Order Comment: No: D o not add to previous draw Performed By: #### 8 4511 #### [facility] [address] [place] [address], [place] Creatinine [Mass/Vol] 1.34 mg/dL High 0.60-1.20 [facility] Comment on above: Order Comment: No: D o not add to previous draw Performed By: #### 8 4511 #### [facility] [address] [place] [address], [place] EGFR 47 ml/min/1.73sq m Abnormal >60 The [facility] Comment on above: Order Comment: No: D o not add to previous draw Result Comment: [facility]'s estimated glomerular filtration rate (eGFR) will no [...] individuals. Performed By: #### 8 4511 #### [facility] [address] [place] [address], [place] Glucose [Mass/Vol] 100 mg/dL Normal 70-100 The [facility] Comment on above: Order Comment: No: D o not add to previous draw Performed By: #### 8 4511 #### [facility] [address] [place] [address], [place] Potassium [Moles/Vol] 3.2 mmol/L Low 3.5-5.1 [facility] Comment on above: Order Comment: No: D o not add to previous draw Performed By: #### 8 4511 #### [facility] [address] [place] [address], [place] Protein [Mass/Vol] 5.5 g/dL Low 6.0-8.3 [facility] Comment on above: Order Comment: No: D o not add to previous draw Performed By: #### 8 4511 #### [facility] [address] [place] [address], [place] Sodium [Moles/Vol] 144 mmol/L Normal 136-145 The [facility] Comment on above: Order Comment: No: D o not add to previous draw Performed By: #### 8 4511 #### [facility] [address] [place] [address], [place] Urea nitrogen [Mass/Vol] 21 mg/dL Normal 7-25 [facility] Comment on above: Order Comment: No: D o not add to previous draw Performed By: #### 8 4511 #### [facility] [address] [place] [address], [facility] MAGNESIUM BLOODon 11-22-2021 Magnesium [Mass/Vol] 1.9 mg/dL Normal 1.9-2.7 [facility] Comment on above: Order Comment: No: D o not add to previous draw Performed By: #### 8 4511 #### [facility] [address] [place] [address], [facility] PHOSPHORUS BLOODon Phosphate [Mass/Vol] 3.3 mg/dL Normal 2.5-5.0 [facility] Comment on above: Order Comment: No: D o not add to previous draw Performed By: #### 8 4511 #### [facility] [address] [place] [address], [facility] POC GLUCOSE LABon 11-22-2021 Glucose [Mass/Vol] 140 mg/dL High 70-100 The [facility] Comment on above: Performed By: #### 8 5499 #### [facility] [address] [place] [address], [place] Glucose [Mass/Vol] 160 mg/dL High 70-100 The [facility] Comment on above: Performed By: #### 8 5499 #### [facility] [address] [place] [place] [address], [facility] Glucose [Mass/Vol] 86 mg/dL Normal 70-100 The [facility] Comment on above: Performed By: #### 8 4511 #### [facility] [address] [facility] [place] [address], [facility] *BLOOD CULTUREon 11-21-2021 *BLOOD CULTURE Clinical Report: (D) Specimen: BLOOD CULTURE Collected: 11/21/2021 00:17 Status: Final Last Updated: 11/26/2021 06:23 CULT RES (Final) No Growth Day 5 Normal [facility] Comment on above: Performed By: #### 8 [id number] #### [facility] [address] [place] [address], [facility] Performed By: #### 8 4511 #### [facility] [address] [place] [address], [facility] ARTERIAL BLOOD GAS WITH ICAo n 11-21-2021 BASE EXCESS -1 mmol/L Normal -2-3 [facility] Comment on above: Performed By: #### 8 5499 #### [facility] [address] [place] [address], [facility] DELIVERY SYSTEMS VENTILATOR Normal [facility] Comment on above: Performed By: #### 8 5499 #### [facility] [address] [place] [address], [facility] FIO2 70 % Normal [facility] Comment on above: Performed By: #### 8 5499 #### [facility] [address] [place] [address], [facility] HCO3 (Bld) [Moles/Vol] 24 mmol/L Normal 21-28 [facility] Comment on above: Performed By: #### 8 5499 #### [facility] [address] [place] [address], [facility] IONIZED CALCIUM 1.17 mmol/L Normal 1.13-1.32 The [facility] Comment on above: Performed By: #### 8 5499 #### [facility] [address] [place] [address], [place] MIN VOLUME 11.0 Normal [facility] Comment on above: Performed By: #### 8 5499 #### [facility] [address] [place] [address], [place] MODALITY AC VC Normal [facility] Comment on above: Performed By: #### 8 5499 #### [facility] [address] [place] [address], [facility] Oxygen (Bld) [Partial pressure] 191 mm[Hg] Critically high 83-108 [facility] Comment on above: Performed By: #### 8 5499 #### [facility] [address] [place] [address], [place] Oxygen saturation in Blood 97.8 % High 94.0-97.0 [facility] Comment on above: Performed By: #### 8 5499 #### [facility] [address] [place] [address], [facility] PCO2 39 mmHg Normal 35-45 [facility] Comment on above: Performed By: #### 8 5499 #### [facility] [address] [place] [address], [facility] PEEP 10.0 CMH20 Normal [facility] Comment on above: Performed By: #### 8 5499 #### [facility] [address] [place] [address], [facility] pH (Bld) 7.40 [pH] Normal 7.35-7.45 [facility] Comment on above: Performed By: #### 8 5499 #### [facility] [address] [place] [address], [place] Respiratory rate 24 /min Normal [facility] Comment on above: Performed By: #### 8 5499 #### [facility] [address] [place] [address], [place] TIDAL VOLUME (VT) CC 450 Normal [facility] Comment on above: Performed By: #### 8 5499 #### [facility] [address] [place] [address], [facility] BASIC METABOLIC PANELon 08-0 Calcium [Mass/Vol] 9.3 mg/dL Normal 8.6-10.3 [facility] Comment on above: Order Comment: RESUL TS CHECKED AND CALLED. ACCURATELY READ BACK BY Jina TAVAREZ ED RN Performed By: #### 8 4511 #### [facility] [address] [place] [address], [facility] Chloride [Moles/Vol] 106 mmol/L Normal 98-107 [facility] Comment on above: Order Comment: RESUL TS CHECKED AND CALLED. ACCURATELY READ BACK BY Jina TAVAREZ ED RN Performed By: #### 8 4511 #### [facility] [address] CO2 [Moles/Vol] 25 mmol/L Normal 21-31 [facility] Comment on above: Order Comment: RESUL TS CHECKED AND CALLED. ACCURATELY READ BACK BY Jina TAVAREZ ED RN Performed By: #### 8 4511 #### [address] Creatinine [Mass/Vol] 1.68 mg/dL High 0.60-1.20 [facility] Comment on above: Order Comment: RESUL TS CHECKED AND CALLED. ACCURATELY READ BACK BY Jina TAVAREZ ED RN Performed By: #### 8 4511 #### [facility] [address] EGFR 36 ml/min/1.73sq m Abnormal >60 [facility] Comment on above: Order Comment: RESUL TS CHECKED AND CALLED. ACCURATELY READ BACK BY Jina TAVAREZ ED RN Result Comment: [facility]'s estimated glomerular filtration rate (eGFR) will no [...] individuals. Performed By: #### 8 4511 #### [facility] [address] [place] [address], [facility] Glucose [Mass/Vol] 201 mg/dL High 70-100 [facility] Comment on above: Order Comment: RESUL TS CHECKED AND CALLED. ACCURATELY READ BACK BY Jina TAVAREZ ED RN Performed By: #### 8 4511 #### [facility] [address] [place] [address], [facility] Potassium [Moles/Vol] 3.7 mmol/L Normal 3.5-5.1 [facility] Comment on above: Order Comment: RESUL TS CHECKED AND CALLED. ACCURATELY READ BACK BY Jina TAVAREZ ED RN Performed By: #### 8 4511 #### [facility] [address] [place] [address], [facility] Sodium [Moles/Vol] 141 mmol/L Normal 136-145 The [facility] Comment on above: Order Comment: RESUL TS CHECKED AND CALLED. ACCURATELY READ BACK BY Jina TAVAREZ ED RN Performed By: #### 8 4511 #### [facility] [address] [place] [address], [facility] Urea nitrogen [Mass/Vol] 28 mg/dL High 7-25 [facility] Comment on above: Order Comment: RESUL TS CHECKED AND CALLED. ACCURATELY READ BACK BY Jina TAVAREZ ED RN Performed By: #### 8 4511 #### [facility] [address] BETA HYDROXYBUTYRATEon 11-21 BETA HYDROXYBUTYRATE 0.21 mmol/L Normal 0.02-0.27 [facility] Comment on above: Performed By: #### 8 4511 #### [facility] [address] [place] [address], [facility] CBC W/DIFFon 11-21-2021 ABS IMM GRANS 0.1 10*3/uL Normal 0.0-0.2 [facility] Comment on above: Order Comment: No: D o not add to previous draw Performed By: #### 8 4511 #### [facility] [address] [place] [address], [facility] ABS NEUTROPHILS 9.5 10*3/uL High 1.6-7.6 The [facility] Comment on above: Order Comment: No: D o not add to previous draw Performed By: #### 8 4511 #### [facility] [address] [place] [address], [place] Basophils (Bld) [#/Vol] 0.0 10*3/uL Normal 0.0-0.2 [facility] Comment on above: Order Comment: No: D o not add to previous draw Performed By: #### 8 4511 #### [facility] [address] [place] [address], [facility] Basophils/100 WBC (Bld) 0.3 % Normal 0.0-1.0 [facility] Comment on above: Order Comment: No: D o not add to previous draw Performed By: #### 8 4511 #### [facility] [address] [place] [address], [facility] Eosinophils (Bld) [#/Vol] 0.0 10*3/uL Normal 0.0-0.5 [facility] Comment on above: Order Comment: No: D o not add to previous draw Performed By: #### 8 4511 #### [facility] [address] [place] [id number], [facility] Eosinophils/100 WBC (Bld) 0.0 % Normal 0.0-6.0 [facility] Comment on above: Order Comment: No: D o not add to previous draw Performed By: #### 8 4511 #### [facility] [address] [place] [address], [place] Erythrocyte distribution width (RBC) [Ratio] 14.3 % Normal 11.5-15.0 [facility] Comment on above: Order Comment: No: D o not add to previous draw Performed By: #### 8 4511 #### [facility] [address] [place] [id number], [facility] Hematocrit (Bld) [Volume fraction] 38.8 % Normal 36.0-45.0 [facility] Comment on above: Order Comment: No: D o not add to previous draw Performed By: #### 8 4511 #### [facility] [address] [place] [address], [facility] Hemoglobin (Bld) [Mass/Vol] 13.0 g/dL Normal 12.0-15.0 [facility] Comment on above: Order Comment: No: D o not add to previous draw Performed By: #### 8 4511 #### [facility] [address] [place] [address], [facility] IMMATURE GRANS 1.1 % High 0.0-1.0 The [facility] Comment on above: Order Comment: No: D o not add to previous draw Performed By: #### 8 4511 #### [facility] [address] [place] [id number], [facility] Lymphocytes (Bld) [#/Vol] 0.9 10*3/uL Low 1.2-4.0 [facility] Comment on above: Order Comment: No: D o not add to previous draw Performed By: #### 8 4511 #### [facility] [address] [place] [id number], [facility] Lymphocytes/100 WBC (Bld) 8.2 % Low 20.0-45.0 [facility] Comment on above: Order Comment: No: D o not add to previous draw Performed By: #### 8 4511 #### [facility] [address] [place] [id number], [facility] MCH (RBC) [Entitic mass] 31.3 pg Normal 27.0-33.0 [facility] Comment on above: Order Comment: No: D o not add to previous draw Performed By: #### 8 4511 #### [facility] [address] [place] [address], [facility] MCHC (RBC) [Mass/Vol] 33.5 g/dL Normal 32.0-35.0 [facility] Comment on above: Order Comment: No: D o not add to previous draw Performed By: #### 8 4511 #### [facility] [address] [place] [address], [facility] MCV (RBC) [Entitic vol] 93.3 fL Normal 82.0-98.0 [facility] Comment on above: Order Comment: No: D o not add to previous draw Performed By: #### 8 4511 #### [facility] [address] [place] [address], [facility] Monocytes (Bld) [#/Vol] 1.0 10*3/uL Normal 0.1-1.0 [facility] Comment on above: Order Comment: No: D o not add to previous draw Performed By: #### 8 4511 #### [facility] [address] [place] [address], [facility] MONOS 8.3 % Normal 5.0-12.0 [facility] Comment on above: Order Comment: No: D o not add to previous draw Performed By: #### 8 4511 #### [facility] [address] [place] [address], [facility] Neutrophils/100 WBC (Bld) 82.1 % High 40.0-72.0 [facility] Comment on above: Order Comment: No: D o not add to previous draw Performed By: #### 8 4511 #### [facility] [address] [place] [address], [facility] Nucleated RBC/100 WBC (Bld) [Ratio] 0 % Normal 0-0 [facility] Comment on above: Order Comment: No: D o not add to previous draw Performed By: #### 8 4511 #### [facility] [address] [place] [address], [facility] PLAT CNT 176 10*3/uL Normal 150-400 The [facility] Comment on above: Order Comment: No: D o not add to previous draw Performed By: #### 8 4511 #### [facility] [address] [place] [id number], [facility] RBC (Bld) [#/Vol] 4.16 10*6/uL Normal 3.80-5.00 The [facility] Comment on above: Order Comment: No: D o not add to previous draw Performed By: #### 8 4511 #### [facility] [address] [place] [place] [address], [facility] WBC (Bld) [#/Vol] 11.53 10*3/uL High 4.00-10.60 [facility] Comment on above: Order Comment: No: D o not add to previous draw Performed By: #### 8 4511 #### [facility] [address] [place] [address], [facility] ABS IMM GRANS 0.2 10*3/uL Normal 0.0-0.2 The [facility] Comment on above: Order Comment: Yes: Add to Previous draw if able Performed By: #### 8 5499 #### [facility] [address] [place] [place] [address], [facility] ABS NEUTROPHILS 12.0 10*3/uL High 1.6-7.6 The [facility] Comment on above: Order Comment: Yes: Add to Previous draw if able Performed By: #### 8 5499 #### [facility] [address] [place] [address], [facility] Basophils (Bld) [#/Vol] 0.0 10*3/uL Normal 0.0-0.2 [facility] Comment on above: Order Comment: Yes: Add to Previous draw if able Performed By: #### 8 5499 #### [facility] [address] [place] [address], [facility] Basophils/100 WBC (Bld) 0.2 % Normal 0.0-1.0 [facility] Comment on above: Order Comment: Yes: Add to Previous draw if able Performed By: #### 8 5499 #### [facility] [address] [place] [address], [place] Eosinophils (Bld) [#/Vol] 0.0 10*3/uL Normal 0.0-0.5 [facility] Comment on above: Order Comment: Yes: Add to Previous draw if able Performed By: #### 8 5499 #### [facility] [address] [place] [address], [facility] Eosinophils/100 WBC (Bld) 0.1 % Normal 0.0-6.0 [facility] Comment on above: Order Comment: Yes: Add to Previous draw if able Performed By: #### 8 5499 #### [facility] [address] [place] [address], [facility] Erythrocyte distribution width (RBC) [Ratio] 14.5 % Normal 11.5-15.0 [facility] Comment on above: Order Comment: Yes: Add to Previous draw if able Performed By: #### 8 5499 #### [facility] [address] [place] [address], [place] Hematocrit (Bld) [Volume fraction] 40.6 % Normal 36.0-45.0 [facility] Comment on above: Order Comment: Yes: Add to Previous draw if able Performed By: #### 8 5499 #### [facility] [address] [place] [address], [place] Hemoglobin (Bld) [Mass/Vol] 13.3 g/dL Normal 12.0-15.0 [facility] Comment on above: Order Comment: Yes: Add to Previous draw if able Performed By: #### 8 5499 #### [facility] [address] [place] [address], [facility] IMMATURE GRANS 1.7 % High 0.0-1.0 The [facility] Comment on above: Order Comment: Yes: Add to Previous draw if able Performed By: #### 8 5499 #### [facility] [address] [place] [address], [facility] Lymphocytes (Bld) [#/Vol] 0.6 10*3/uL Low 1.2-4.0 [facility] Comment on above: Order Comment: Yes: Add to Previous draw if able Performed By: #### 8 5499 #### [facility] [address] [facility] [place] [address], [facility] Lymphocytes/100 WBC (Bld) 4.2 % Low 20.0-45.0 [facility] Comment on above: Order Comment: Yes: Add to Previous draw if able Performed By: #### 8 5499 #### [facility] [address] [place] [address], [facility] MCH (RBC) [Entitic mass] 31.4 pg Normal 27.0-33.0 [facility] Comment on above: Order Comment: Yes: Add to Previous draw if able Performed By: #### 8 5499 #### [facility] [address] [place] [address], [facility] MCHC (RBC) [Mass/Vol] 32.8 g/dL Normal 32.0-35.0 [facility] Comment on above: Order Comment: Yes: Add to Previous draw if able Performed By: #### 8 5499 #### [facility] [address] [facility] [place] [address], [facility] MCV (RBC) [Entitic vol] 95.8 fL Normal 82.0-98.0 [facility] Comment on above: Order Comment: Yes: Add to Previous draw if able Performed By: #### 8 5499 #### [facility] [address] [place] [address], [facility] Monocytes (Bld) [#/Vol] 0.8 10*3/uL Normal 0.1-1.0 [facility] Comment on above: Order Comment: Yes: Add to Previous draw if able Performed By: #### 8 5499 #### [facility] [address] [place] [address], [place] MONOS 5.8 % Normal 5.0-12.0 [facility] Comment on above: Order Comment: Yes: Add to Previous draw if able Performed By: #### 8 5499 #### [facility] [address] [place] [address], [place] Neutrophils/100 WBC (Bld) 88.0 % High 40.0-72.0 [facility] Comment on above: Order Comment: Yes: Add to Previous draw if able Performed By: #### 8 5499 #### [facility] [address] [place] [address], [place] Nucleated RBC/100 WBC (Bld) [Ratio] 0 % Normal 0-0 [facility] Comment on above: Order Comment: Yes: Add to Previous draw if able Performed By: #### 8 5499 #### [facility] [address] [place] [address], [place] PLAT CNT 163 10*3/uL Normal 150-400 The [facility] Comment on above: Order Comment: Yes: Add to Previous draw if able Performed By: #### 8 5499 #### [facility] [address] [place] [address], [place] RBC (Bld) [#/Vol] 4.24 10*6/uL Normal 3.80-5.00 The [facility] Comment on above: Order Comment: Yes: Add to Previous draw if able Performed By: #### 8 5499 #### [facility] [address] [place] [address], [place] WBC (Bld) [#/Vol] 13.68 10*3/uL High 4.00-10.60 [facility] Comment on above: Order Comment: Yes: Add to Previous draw if able Performed By: #### 8 5499 #### [facility] [address] [place] [address], [facility] COMP METABOLIC PANELon 11-21 Albumin [Mass/Vol] 4.1 g/dL Normal 3.5-5.7 The [facility] Comment on above: Performed By: #### 8 4511 #### [facility] [address] [place] [address], [facility] ALKALINE PHOSPH 196 IU/L High 34-104 The [facility] Comment on above: Performed By: #### 8 4511 #### [facility] [address] [place] [address], [place] ALT [Catalytic activity/Vol] 560 U/L Critically high 7-52 [facility] Comment on above: Performed By: #### 8 4511 #### [facility] [address] [place] [address], [facility] AST [Catalytic activity/Vol] 852 U/L High 13-39 [facility] Comment on above: Performed By: #### 8 4511 #### [facility] [address] [place] [address], [facility] Bilirubin [Mass/Vol] 0.9 mg/dL Normal 0.3-1.0 [facility] Comment on above: Performed By: #### 8 4511 #### [facility] [address] [place] [address], [facility] Calcium [Mass/Vol] 8.9 mg/dL Normal 8.6-10.3 The [facility] Comment on above: Performed By: #### 8 4511 #### [facility] [address] [place] [address], [place] Chloride [Moles/Vol] 101 mmol/L Normal 98-107 [facility] Comment on above: Performed By: #### 8 4511 #### [facility] [address] [place] [address], [facility] CO2 [Moles/Vol] 22 mmol/L Normal 21-31 [facility] Comment on above: Performed By: #### 8 4511 #### [facility] [address] [place] [address], [facility] Creatinine [Mass/Vol] 1.90 mg/dL High 0.60-1.20 [facility] Comment on above: Performed By: #### 8 4511 #### [facility] [address] [place] [address], [facility] EGFR 31 ml/min/1.73sq m Abnormal >60 The [facility] Comment on above: Result Comment: [facility]'s estimated glomerular filtration rate (eGFR) will no [...] individuals. Performed By: #### 8 4511 #### [facility] [address] [place] [address], [facility] Glucose [Mass/Vol] 436 mg/dL High 70-100 The [facility] Comment on above: Performed By: #### 8 4511 #### [facility] [address] [place] [address], [facility] Potassium [Moles/Vol] 4.4 mmol/L Normal 3.5-5.1 [facility] Comment on above: Performed By: #### 8 4511 #### [facility] [address] [place] [address], [facility] Protein [Mass/Vol] 6.9 g/dL Normal 6.0-8.3 The [facility] Comment on above: Performed By: #### 8 4511 #### [facility] [address] [place] [address], [facility] Sodium [Moles/Vol] 136 mmol/L Normal 136-145 The [facility] Comment on above: Performed By: #### 8 4511 #### [facility] [address] [place] [address], [facility] Urea nitrogen [Mass/Vol] 30 mg/dL High 7-25 [facility] Comment on above: Performed By: #### 8 4511 #### [facility] [address] [place] [address], [facility] CT BRAIN WO CONTRASTon 11-21 CT BRAIN WO CONTRAST [facility] Department of Radiology [address] [place], [place] [id number] Patient Name: RAQUEL VILA : 1965 Sex: F Age: Race: White Pt. Location: [place] [address] Patient Status: I Ordered Date: 11/20/2021 10:30:00 [...] Electronically signed: Aziza Funes M.D.. Transcribed by: [email or web address], User Resident: Electronically Signed by: AZIZA FUNES @ 11/20/2021 11:03 PM Normal [facility] Comment on above: Order Comment: Other ELECTROLYTE PANELon 11-22-19 22 CARBON DIOXIDE CANCELED Normal 21-31 The [facility] Comment on above: Result Comment: The released value 23 was canceled by [email or web address] on 11/21/2021 02:22 Performed By: #### 8 4511 #### [facility] [address] [place] [address], [facility] [facility] CHLORIDE CANCELED Normal 98-107 [facility] Comment on above: Result Comment: The released value 101 was canceled by [email or web address] on 11/21/2021 02:22 Performed By: #### 8 [id number] #### [facility] [address] [place] [address], [place] POTASSIUM CANCELED Normal 3.5-5.1 [facility] Comment on above: Result Comment: The released value 4.4 was canceled by [email or web address] on 11/21/2021 02:22 Performed By: #### 8 [id number] #### [facility] [address] [place] [address], [facility] SODIUM CANCELED Normal 136-145 [facility] Comment on above: Result Comment: The released value 135 was canceled by [email or web address] on 11/21/2021 02:22 Performed By: #### 8 4511 #### [facility] [address] [place] [address], [place] LACTATE BLOODon 11-21-2021 Lactate [Moles/Vol] 2.1 mmol/L Normal .5-2.2 The [facility] Comment on above: Order Comment: No: D o not add to previous draw Performed By: #### 8 4511 #### [facility] [address] [place] [address], [facility] Lactate [Moles/Vol] 2.1 mmol/L Normal .5-2.2 The [facility] Comment on above: Order Comment: RESUL TS CHECKED AND CALLED. ACCURATELY READ BACK BY Jina TAVAREZ ED RN Performed By: #### 8 4511 #### [facility] [address] [place] [address], [facility] MAGNESIUM BLOODon 11-21-2021 Magnesium [Mass/Vol] 2.0 mg/dL Normal 1.9-2.7 [facility] Comment on above: Order Comment: RESUL TS CHECKED AND CALLED. ACCURATELY READ BACK BY Jina TAVAREZ ED, RN Performed By: #### 8 4511 #### [facility] [address] [place] [address], [place] OSMOLALITY BLOODon 2 Osmolality [Osmolality] 319 mosm/kg High 285-305 [facility] Comment on above: Order Comment: No: D o not add to previous draw Performed By: #### 8 4511 #### [facility] [address] [place] [address], [place] PHOSPHORUS BLOODon 2 Phosphate [Mass/Vol] 3.1 mg/dL Normal 2.5-5.0 [facility] Comment on above: Order Comment: RESUL TS CHECKED AND CALLED. ACCURATELY READ BACK BY Jina TAVAREZ ED, RN Performed By: #### 8 4511 #### [facility] [address] [place] [address], [place] POC GLUCOSE LABon 11-21-2021 Glucose [Mass/Vol] 150 mg/dL High 70-100 The [facility] Comment on above: Performed By: #### 8 [id number] #### [facility] [address] [place] [address], [place] Glucose [Mass/Vol] 149 mg/dL High 70-100 The [facility] Comment on above: Performed By: #### 8 5499 #### [facility] [address] [place] [address], [place] Glucose [Mass/Vol] 178 mg/dL High 70-100 The [facility] Comment on above: Performed By: #### 8 4511 #### [facility] [address] [place] [address], [place] Glucose [Mass/Vol] 173 mg/dL High 70-100 The [facility] Comment on above: Performed By: #### 8 4511 #### [facility] [address] [place] [address], [place] Glucose [Mass/Vol] 158 mg/dL High 70-100 The [facility] Comment on above: Performed By: #### 8 [id number] #### [facility] [address] [place] [address], [place] Glucose [Mass/Vol] 165 mg/dL High 70-100 The [facility] Comment on above: Performed By: #### 8 4511 #### [facility] [address] [place] [address], [place] Glucose [Mass/Vol] 185 mg/dL High 70-100 [facility] Comment on above: Performed By: #### 8 5499 #### [facility] [address] [place] [address], [place] Glucose [Mass/Vol] 200 mg/dL High 70-100 [facility] Comment on above: Performed By: #### 8 5499 ####[facility] [place] [address], [place] Glucose [Mass/Vol] 230 mg/dL High 70-100 [facility] Comment on above: Performed By: #### 8 4511 #### [facility] [address] [place] [address], [place] Glucose [Mass/Vol] 265 mg/dL High 70-100 [facility] Comment on above: Performed By: #### 8 5499 #### [facility] [address] [place] [address], [place] Glucose [Mass/Vol] 352 mg/dL High 70-100 [facility] Comment on above: Performed By: #### 8 [id number] #### [facility] [address] [place] [address], [place] Glucose [Mass/Vol] 403 mg/dL High 70-100 [facility] Comment on above: Performed By: #### 8 5499 #### [facility] [address] [place] [address], [place] Glucose [Mass/Vol] 502 mg/dL Critically high 70-100 T [facility] Comment on above: Order Comment: NOTE: Critical Value Performed By: #### 8 [id number] #### [facility] [address] [place] [address], [place] Glucose [Mass/Vol] 490 mg/dL High 70-100 [facility] Comment on above: Performed By: #### 8 [id number] #### [facility] [address] [place] [address], [facility] PROCALCITONINon 11-21-2021 PROCALCITONIN 1.17 ng/mL High 0.00-0.10 [facility] Comment on above: Result Comment: Susp [...] PCT<0.5ng/mL Performed By: #### 8 4511 #### [facility] [address] TRIGLYCERIDES BLOODon 2021 Triglyceride [Mass/Vol] 121 mg/dL Normal 40-149 [facility] Comment on above: Order Comment: RESUL TS CHECKED AND CALLED. ACCURATELY READ BACK BY Jina TAVAREZ ED RN Result Comment: TRIG LYCERIDE REFERENCE RANGE: 20 YEARS AND OLDER CARDIOVASCULAR RISK LESS THAN 150 mg/dl LOW RISK 150 TO 199 mg/dl BORDERLINE RISK 200 mg/dl AND GREATER HIGH RISK Performed By: #### 8 [id number] #### [facility] [address] [place] [address], [facility] ACETONE SERUMon 11-20-2021 ACETONE Negative Normal NEGATIVE [facility] Comment on above: Performed By: #### V ITAD #### [facility] [address] [place], [place] [address] Dr. Kelsie Dominguez ARTERIAL BLOOD GAS WITH ICAo n 11-20-2021 BASE EXCESS -4 mmol/L Low -2-3 The [facility] Comment on above: Order Comment: RESUL TS CHECKED AND CALLED. ACCURATELY READ BACK BY Jina TAVAREZ ED RN Performed By: #### 8 4511 #### [facility] [address] [facility] [place] [address], [facility] DELIVERY SYSTEMS VENTILATOR Normal The [facility] Comment on above: Order Comment: RESUL TS CHECKED AND CALLED. ACCURATELY READ BACK BY Jina TAVAREZ ED RN Performed By: #### 8 4511 #### [facility] [address] [place] [address], [facility] FIO2 100 % Normal [facility] Comment on above: Order Comment: RESUL TS CHECKED AND CALLED. ACCURATELY READ BACK BY Jina TAVAREZ ED RN Performed By: #### 8 4511 #### [facility] [address] [place] [address], [facility] HCO3 (Bld) [Moles/Vol] 23 mmol/L Normal 21-28 [facility] Comment on above: Order Comment: RESUL TS CHECKED AND CALLED. ACCURATELY READ BACK BY Jina TAVAREZ ED RN Performed By: #### 8 4511 #### [facility] [address] [place] [address], [facility] IONIZED CALCIUM 1.13 mmol/L Normal 1.13-1.32 The [facility] Comment on above: Order Comment: RESUL TS CHECKED AND CALLED. ACCURATELY READ BACK BY Jina TAVAREZ ED, RN Performed By: #### 8 4511 #### [facility] [address] [facility] [place], [place] [address] MIN VOLUME 11.0 Normal [facility] Comment on above: Order Comment: RESUL TS CHECKED AND CALLED. ACCURATELY READ BACK BY Jina TAVAREZ ED RN Performed By: #### 8 4511 #### [facility] [address] [place] [address], [facility] MODALITY AC VC Normal [facility] Comment on above: Order Comment: RESUL TS CHECKED AND CALLED. ACCURATELY READ BACK BY Jina TAVAREZ ED RN Performed By: #### 8 4511 #### [facility] [address] [place] [address], [facility] Oxygen (Bld) [Partial pressure] 68 mm[Hg] Low 83-108 [facility] Comment on above: Order Comment: RESUL TS CHECKED AND CALLED. ACCURATELY READ BACK BY Jina TAVAREZ ED RN Performed By: #### 8 4511 #### [facility] [address] [facility] [place], [place] [id number] [place] [address] Oxygen saturation in Blood 91.7 % Low 94.0-97.0 [facility] Comment on above: Order Comment: RESUL TS CHECKED AND CALLED. ACCURATELY READ BACK BY Jina TAVAREZ ED RN Performed By: #### 8 4511 #### [facility] [address] [facility] [place] [address], [facility] PCO2 52 mmHg High 35-45 [facility] Comment on above: Order Comment: RESUL TS CHECKED AND CALLED. ACCURATELY READ BACK BY Jina TAVAREZ ED RN Performed By: #### 8 4511 #### [facility] [address] [facility] [place] [address], [facility] PEEP 10.0 CMH20 Normal [facility] Comment on above: Order Comment: RESUL TS CHECKED AND CALLED. ACCURATELY READ BACK BY Jina TAVAREZ ED RN Performed By: #### 8 4511 #### [facility] [address] [place] [address], [facility] pH (Bld) 7.26 [pH] Low 7.35-7.45 [facility] Comment on above: Order Comment: RESUL TS CHECKED AND CALLED. ACCURATELY READ BACK BY Jina TAVAREZ ED RN Performed By: #### 8 4511 #### [facility] [address] [place] [address], [facility] Respiratory rate 24 /min Normal The [facility] Comment on above: Order Comment: RESUL TS CHECKED AND CALLED. ACCURATELY READ BACK BY Jina TAVAREZ ED RN Performed By: #### 8 4511 #### [facility] [address] [place] [address], [facility] TIDAL VOLUME (VT) CC 450 Normal [facility] Comment on above: Order Comment: RESUL TS CHECKED AND CALLED. ACCURATELY READ BACK BY Jina TAVAREZ ED RN Performed By: #### 8 4511 #### [facility] [address] [place] [address], [facility] BASE EXCESS -10 mmol/L Low -2-3 The [facility] Comment on above: Performed By: #### 8 4511 #### [facility] [address] [place], [place] [id number] [place] [address] DELIVERY SYSTEMS VENTILATOR Normal The [facility] Comment on above: Performed By: #### 8 4511 #### [facility] [address] [place] [address], [facility] FIO2 60 % Normal [facility] Comment on above: Performed By: #### 8 4511 #### [facility] [address] [place] [address], [facility] HCO3 (Bld) [Moles/Vol] 20 mmol/L Low 21-28 [facility] Comment on above: Result Comment: RESU LTS CHECKED AND CALLED. ACCURATELY READ BACK BY Jina TAVAREZ ED, RN Performed By: #### 8 4511 #### [facility] [address] [place] [address], [facility] IONIZED CALCIUM 1.13 mmol/L Normal 1.13-1.32 The [facility] Comment on above: Performed By: #### 8 4511 #### [facility] [address] [place] [address], [place] MIN VOLUME 6.8 Normal [facility] Comment on above: Performed By: #### 8 4511 #### [facility] [address] [place] [address], [place] MODALITY AV VC Normal [facility] Comment on above: Performed By: #### 8 4511 #### [facility] [address] [place] [address], [place] Oxygen (Bld) [Partial pressure] 65 mm[Hg] Low 83-108 [facility] Comment on above: Performed By: #### 8 4511 #### [facility] [address] [place] [address], [place] Oxygen saturation in Blood 87.0 % Critically low 94.0-97.0 [facility] Comment on above: Performed By: #### 8 4511 #### [facility] [address] [place] [address], [place] PCO2 59 mmHg Critically high 35-45 The [facility] Comment on above: Performed By: #### 8 4511 #### [facility] [address] [place] [address], [place] PEEP 8.0 CMH20 Normal [facility] Comment on above: Performed By: #### 8 4511 #### [facility] [address] [place] [address], [place] pH (Bld) 7.14 [pH] Critically low 7.35-7.45 The [facility] Comment on above: Result Comment: RESU LTS CHECKED AND CALLED. ACCURATELY READ BACK BY Jina TAVAREZ ED, RN Performed By: #### 8 4511 #### [facility] [address] [place] [address], [place] Respiratory rate 14 /min Normal The [facility] Comment on above: Performed By: #### 8 4511 #### [facility] [address] [place] [address], [facility] TIDAL VOLUME (VT) CC 500 Normal [facility] Comment on above: Performed By: #### 8 4511 #### [facility] [address] [place] [address], [facility] BASIC METABOLIC PANELon 08-0 Calcium [Mass/Vol] 8.5 mg/dL Low 8.6-10.3 The [facility] Comment on above: Performed By: #### 8 5499 #### [facility] [address] [place] [address], [facility] Chloride [Moles/Vol] 102 mmol/L Normal 98-107 [facility] Comment on above: Performed By: #### 8 5499 #### [facility] [address] [place] [address], [facility] CO2 [Moles/Vol] 19 mmol/L Low 21-31 The [facility] Comment on above: Performed By: #### 8 [id number] #### [facility] [address] [place] [address], [facility] Creatinine [Mass/Vol] 1.89 mg/dL High 0.60-1.20 [facility] Comment on above: Performed By: #### 8 5499 #### [facility] [address] EGFR 31 ml/min/1.73sq m Abnormal >60 The [facility] Comment on above: Result Comment: [facility]'s estimated glomerular filtration rate (eGFR) will no [...] individuals. Performed By: #### 8 [id number] #### [facility] [address] [place] [address], [facility] Glucose [Mass/Vol] 465 mg/dL High 70-100 The [facility] Comment on above: Performed By: #### 8 [id number] #### [facility] [address] [facility] [place] [address], [facility] Potassium [Moles/Vol] 6.2 mmol/L Critically high 3.5-5.1 [facility] Comment on above: Result Comment: M-CR ITICAL RESULT(S) REVIEWED, CALLED TO AND READ BACK BY Alexandra Vásquez RN at 2021. M-No hemolysis. Performed By: #### 8 [id number] #### [facility] [address] [facility] [place] [address], [facility] Sodium [Moles/Vol] 135 mmol/L Low 136-145 The [facility] Comment on above: Performed By: #### 8 [id number] #### [facility] [address] [facility] [place] [address], [facility] Urea nitrogen [Mass/Vol] 28 mg/dL High 7-25 [facility] Comment on above: Performed By: #### 8 [id number] #### [facility] [address] [facility] [place] [address], [facility] BLOOD GASES BTYon 11-20-2021 02 MODE VENTILATOR Normal [facility] Comment on above: Performed By: #### V ITAD #### [facility] [address] [address] [address] Kelsie OBANDO TEST Positive Normal [facility] Comment on above: Performed By: #### V ITAD #### [facility] [address] [address] [address] Kelsie Dominguez Base excess Calc (Bld) [Moles/Vol] -14.88251 mmol/L Critically low -2.0-2.0 [facility] Comment on above: Performed By: #### V ITAD #### [facility] [address] [place] [address] Dr. Kelsie Dominguez BIPAP PRESSURE Normal [facility] Comment on above: Performed By: #### V ITAD #### [facility] [address] [place] [address] Dr. Kelsie Dominguez CO2 [Moles/Vol] 34.7 mmol/L Critically high 23.0-28.0 [facility] Comment on above: Performed By: #### V ITAD #### [facility] [address] [place] [address] Dr. Kelsie Dominguez CPAP [facility] Comment on above: Performed By: #### V ITAD #### [facility] [address] [place] [address] Dr. Kelsie Dominguez FIO2 100.00 % Normal [facility] Comment on above: Performed By: #### V ITAD #### [facility] [address] [place] [address] Dr. Kelsie Dominguez HCO3 (Bld) [Moles/Vol] 13.8 mmol/L Critically low 22.0-26.0 [facility] Comment on above: Performed By: #### V ITAD #### [facility] [address] [place] [address] Dr. Kelsie Dominguez LPM [facility] Comment on above: Performed By: #### V ITAD #### [facility] [address] [place] [address] Dr. Kelsie Dominguez MINUTE VOLUME Normal [facility] Comment on above: Performed By: #### V ITAD #### [facility] [address] [place] [address] Dr. Kelsie Dominguez Oxygen (Bld) [Partial pressure] 122.0 mm[Hg] Critically high 80.0-100.0 [facility] Comment on above: Performed By: #### V ITAD #### [facility] [address] [place] [address] Dr. Kelsie Dominguez Oxygen saturation in Blood 97.0 % Normal 95.0-100.0 [facility] Comment on above: Performed By: #### V ITAD #### [facility] [address] [address] [address] Kelsie Dominguez PCO2 53.1 mmHg Critically high 35.0-45.0 [facility] Comment on above: Performed By: #### V ITAD #### [facility] [address] [address] [address] Kelsie Dominguez PEEP 8 [facility] Comment on above: Performed By: #### V ITAD #### [facility] [address] [place] [address] Dr. Kelsie Dominguez pH (Bld) 7.084 [pH] Critically low 7.350-7.450 [facility] Comment on above: Performed By: #### V ITAD #### [facility] [address] [place] [address] Dr. Kelsie Dominguez PIP [facility] Comment on above: Performed By: #### V ITAD #### [facility] [address] [place] [address] Dr. Kelsie Dominguez PS 14 [facility] Comment on above: Performed By: #### V ITAD #### [facility] [address] [place] [address] Dr. Kelsie Dominguez PUNCTURE SITE RR [facility] Comment on above: Performed By: #### V ITAD #### [facility] [address] [place] [address] Dr. Kelsie Dominguez RATE 20 bpm [facility] Comment on above: Performed By: #### V ITAD #### [facility] [address] [place] [address] Dr. Kelsie Dominguez VENT MODE PSIMV [facility] Comment on above: Performed By: #### V ITAD #### [facility] [address] [place] [address] Dr. Kelsie Dominguez [place] [facility] Comment on above: Performed By: #### V ITAD #### [facility] [address] [place] [address] Dr. Kelsie Dominguez BNPon 11-20-2021 Natriuretic peptide B (Bld) [Mass/Vol] 2560.0 pg/mL Critically high <=900.0 [facility] Comment on above: Performed By: #### C MP, CMADM, BNP #### [facility] [address] [place] [address] Dr. Kelsie Dominguez CARDIAC JANIA ADMITon 022 CK [Catalytic activity/Vol] 93 U/L Normal 26-192 [facility] Comment on above: Performed By: #### C MP, CMADM, BNP #### [facility] [address] [place] [address] Dr. Kelsie Dominguez CK.MB [Mass/Vol] 2.87 ng/mL Normal <=3.60 [facility] Comment on above: Performed By: #### C MP, CMADM, BNP #### [facility] [address] [place] [address] Dr. Kelsie Dominguez HSTROP 12.2 pg/mL Normal 4.0-51.3 [facility] Comment on above: Result Comment: CUT- OFF POINTS HAVE BEEN ESTABLISHED BASED ON THE FOURTH UNIVERSAL DEFINITIONS OF MYOCARDIAL INFARCTION. THE UPPER REFERENCE LIMIT (URL) OF TROPONIN, DEFINED THE 99TH PERCENTILE OF cTnI DISTRIBUTION IN A REFERENCE POPULATION, HAS BEEN CONFIRMED THE DECISION THRESHOLD FOR CO DIAGNOSIS. Performed By: #### C MP, CMADM, BNP #### [facility] [address] [place] [address] Dr. Kelsie Dominguez VARGAS 112 ng/mL Critically high 9-82 [facility] Comment on above: Performed By: #### C MP, CMADM, BNP #### [facility] [address] [place] [address] Dr. Kelsie Dominguez CBC W MANUAL DIFFon 11-21-19 22 ATYPICAL LYMPH # Normal [facility] Comment on above: Performed By: #### C BCMAN #### [facility] [address] [place] [address] Dr. Kelsie Dominguez ATYPICAL LYMPH % Normal [facility] Comment on above: Performed By: #### C BCMAN #### [facility] [address] [place] [address] Dr. Kelsie Dominguez BAND # 0.1 103/ul Normal 0.0-0.3 [facility] Comment on above: Performed By: #### C BCMAN #### [facility] [address] [place] [address] Dr. Kelsie Dominguez BAND % 1 % Normal 0-5 [facility] Comment on above: Performed By: #### C BCMAN #### [facility] [address] [place] [address] Dr. Kelsie Dominguez BASOM # 0.00 103/ul Normal 0.00-0.10 [facility] Comment on above: Performed By: #### C BCMAN #### [facility] [address] [place] [address] Dr. Kelsie Dominguez BASOM % 0.0 % Critically low 0.2-2.0 [facility] Comment on above: Performed By: #### C BCKASEY #### [facility] [address] [place] [address] Dr. Kelsie Dominguez BLAST # Normal [facility] Comment on above: Performed By: #### C BCKASEY #### [facility] [address] [place] [address] Dr. Kelsie Dominguez BLAST % Normal [facility] Comment on above: Performed By: #### C LIBERTAD #### [facility] [address] [place] [address] Dr. Kelsie Dominguez CORRECTED WBC Normal 4.0-11.0 [facility] Comment on above: Performed By: #### C BCKASEY #### [facility] [address] [place] [address] Dr. Kelsie Dominguez EOS # 0.00 103/ul Normal 0.00-0.70 [facility] Comment on above: Performed By: #### C BCKASEY #### [facility] [address] [place] [address] Dr. Kelsie Dominguez EOS% 0.0 % Critically low 0.9-7.0 [facility] Comment on above: Performed By: #### C LIBERTAD #### [facility] [address] [address] [address] Kelsie Dominguez HCT 43.8 % Normal 36.0-48.0 [facility] Comment on above: Performed By: #### C LIBERTAD #### [facility] [address] [address] [address] Kelsie Dominguez HGB 13.3 g/dl Normal 12.0-16.0 [facility] Comment on above: Performed By: #### C LIBERTAD #### [facility] [address] [address] [address] Kelsie Dominguez LYMPHM # 3.78 103/ul Normal 1.20-3.80 [facility] Comment on above: Performed By: #### C LIBERTAD #### [facility] [address] [place] [address] Dr. Kelsie Dominguez LYMPHM% 27.0 % Normal 20.5-60.0 [facility] Comment on above: Performed By: #### C LIBERTAD #### [facility] [address] [place] [address] Dr. Kelsie Dominguez MCH 31.4 pg Normal 26.7-34.0 [facility] Comment on above: Performed By: #### C LIBERTAD #### [facility] [address] [place] [address] Dr. Kelsie Dominguez MCHC 30.4 g/dl Normal 29.9-35.2 [facility] Comment on above: Performed By: #### C LIBERTAD #### [facility] [address] [place] [address] Dr. Kelsie Dominguez MCV 103.3 fL Critically high 81.0-99.0 [facility] Comment on above: Performed By: #### C LIBERTAD #### [facility] [address] [place] [address] Dr. Kelsie Dominguez METAMYELOCYTE # Normal [facility] Comment on above: Performed By: #### C LIBERTAD #### [facility] [address] [place] [address] Dr. Kelsie Dominguez METAMYELOCYTE % Normal [facility] Comment on above: Performed By: #### C BCMAN #### [facility] [address] [address] [address] Kelsie Dominguez MONOM# 1.12 103/ul Critically high 0.30-0.80 [facility] Comment on above: Performed By: #### C BCMAN #### [facility] [address] [address] [address] Kelsie Dominguez MONOM% 8.0 % Normal 1.7-12.0 [facility] Comment on above: Performed By: #### C BCMAN #### [facility] [address] [address] [address] Kelsie Dominguez MPV 9.2 fL Critically low 9.5-13.5 [facility] Comment on above: Performed By: #### C BCMAN #### [facility] [address] [place] [address] Dr. Kelsie Dominguez MYELOCYTE # Normal [facility] Comment on above: Performed By: #### C BCKASEY #### [facility] [address] [address] [address] Kelsie Dominguez MYELOCYTE % Normal [facility] Comment on above: Performed By: #### C BCMAN #### [facility] [address] [place] [address] Dr. Kelsie Dominguez NRBC Normal [facility] Comment on above: Performed By: #### C BCKASEY #### [facility] [address] [address] [address] Kelsie Dominguez PLT 213 103/ul Normal 150-450 [facility] Comment on above: Performed By: #### C BCMAN #### [facility] [address] [address] [address] Kelsie Dominguez RBC 4.24 106/ul Normal 4.20-5.40 [facility] Comment on above: Performed By: #### C BCKASEY #### [facility] [address] [address] [address] Kelsie Dominguez RDW 14.6 % Normal 11.0-15.0 [facility] Comment on above: Performed By: #### C LIBERTAD #### [facility] [address] [address] [address] Kelsie Dominguez SEG # 8.96 103/ul Critically high 1.40-6.50 [facility] Comment on above: Performed By: #### C LIBERTAD #### [facility] [address] [address] [address] Kelsie Dominguez SEG % 64.0 % Normal 43.0-75.0 [facility] Comment on above: Performed By: #### C KAREEMMAN #### [facility] [address] [address] [address] Kelsie Dominguez WBC 14.0 103/ul Critically high 4.0-11.0 [facility] Comment on above: Performed By: #### C LIBERTAD #### [facility] [address] [place] [address] Dr. Kelsie Dominguez Covid-19 PCR ([facility])on SARS-CoV-2 (COVID-19) RNA SUZANNA+probe Ql (Unsp spec) Not detected Normal NOT DETECTED [facility] Comment on above: Result Comment: When [...] for this test is supported by the [place] of Health and Human Service's declaration that [...] used). Performed By: #### C LIBERTAD #### [facility] [address] [place] [address] Dr. Kelsie Dominguez D-DIMERon 11-20-2021 D-DIMER 2.80 mg/L FEU Critically high <=0.59 [facility] Comment on above: Performed By: #### V ITAD #### [facility] [address] [place] [address] Kelsie Dominguez D-DIMER COMMENTS SEE BELOW Normal [facility] Comment on above: Result Comment: Incr eases [...] hospitalization. Performed By: #### V ITAD #### [facility] [address] [place] [address] Dr. Kelsie Dominguez LACTATE BLOODon 11-20-2021 Lactate [Moles/Vol] 5.2 mmol/L Critically high .5-2.2 [facility] Comment on above: Order Comment: RESUL TS CHECKED AND CALLED. ACCURATELY READ BACK BY Jina TAVAREZ ED, RN Result Comment: M-CR ITICAL RESULT(S) REVIEWED, CALLED TO AND READ BACK BY Alexandra Vásquez RN at 2140. Performed By: #### 8 [id number] #### [facility] [address] LACTATE/LACTIC ACIDon 2021 Lactate [Moles/Vol] 12.3 mmol/L Critically high 0.4-1.9 [facility] Comment on above: Performed By: #### H H #### [facility] [address] [place], [place] [id number] Dr. Kelsie Dominguez LIVER BATTERYon 11-20-2021 Albumin [Mass/Vol] 4.1 g/dL Normal 3.5-5.7 [facility] Comment on above: Performed By: #### 8 [id number] #### [facility] [address] [place] [address], [place] ALKALINE PHOSPH 213 IU/L High 34-104 [facility] Comment on above: Performed By: #### 8 [id number] #### [facility] [address] [place] [address], [place] ALT [Catalytic activity/Vol] 437 U/L Critically high 7-52 [facility] Comment on above: Performed By: #### 8 [id number] #### [facility] [address] [place] [address], [place] AST [Catalytic activity/Vol] 717 U/L High 13-39 [facility] Comment on above: Performed By: #### 8 [id number] #### [facility] [address] [place] [address], [place] Bilirubin [Mass/Vol] 1.7 mg/dL High 0.3-1.0 [facility] Comment on above: Performed By: #### 8 [id number] #### [facility] [address] [place] [address], [place] Bilirubin.direct [Mass/Vol] 0.9 mg/dL High 0.0-0.2 [facility] Comment on above: Performed By: #### 8 [id number] #### [facility] [address] [place] [address], [place] Protein [Mass/Vol] 6.8 g/dL Normal 6.0-8.3 [facility] Comment on above: Performed By: #### 8 [id number] #### [facility] [address] [place] [address], [place] MAGNESIUM BLOODon 11-20-2021 Magnesium [Mass/Vol] 2.1 mg/dL Normal 1.9-2.7 [facility] Comment on above: Performed By: #### 8 [id number] #### [facility] [address] [place] [address], [place] PHOSPHORUS BLOODon Phosphate [Mass/Vol] 7.1 mg/dL High 2.5-5.0 [facility] Comment on above: Performed By: #### 8 [id number] #### [address] [address] POINT OF CARE GLUCOSEon Glucose [Mass/Vol] 477 mg/dL Critically high 74-106 [facility] Comment on above: Performed By: #### C LIBERTAD #### [facility] [address] [address] [address] Kelsie Dominguez PORTABLE CHEST 1 VIEWon PORTABLE CHEST 1 VIEW [facility] Department of Radiology [address] [place] [id number] Patient Name: RAQUEL VILA : 1965 Sex: F Age: Race: White Pt. Location: [facility] Patient Status: E Ordered Date: 11/20/2021 [...] Electronically signed: Aziza Funes M.D.. Transcribed by: [email or web address], User Resident: Electronically Signed by: AZIZA FUNES @ 11/20/2021 09:02 PM Normal [facility] Comment on above: Order Comment: Check E.T. Position PROF 14(COMP METB)on 022 Albumin [Mass/Vol] 3.4 g/dL Normal 3.4-5.0 [facility] Comment on above: Performed By: #### C MP, CMADM, BNP #### [facility] [address] [place] [address] Dr. Kelsie Dominguez Albumin/Globulin [Mass ratio] 0.9 {ratio} Normal [facility] Comment on above: Performed By: #### C MP, CMADM, BNP #### [facility] [address] [address] [address] Kelsie Dominguez ALP [Catalytic activity/Vol] 161 U/L Critically high 46-116 [facility] Comment on above: Performed By: #### C MP, CMADM, BNP #### [facility] [address] [address] [address] Kelsie Dominguez ALT [Catalytic activity/Vol] 91 U/L Critically high 14-59 [facility] Comment on above: Performed By: #### C MP, CMADM, BNP #### [facility] [address] [address] [address] Kelsie Dominguez Anion gap [Moles/Vol] 29.0 mmol/L Normal [facility] Comment on above: Performed By: #### C MP, CMADM, BNP #### [facility] [address] [address] [address] Kelsie Dominguez AST [Catalytic activity/Vol] 134 U/L Critically high 15-37 [facility] Comment on above: Performed By: #### C MP, CMADM, BNP #### [facility] [address] [address] [address] Kelsie Dominguez Bilirubin [Mass/Vol] 1.0 mg/dL Normal 0.2-1.0 [facility] Comment on above: Performed By: #### C MP, CMADM, BNP #### [facility] [address] [place] [address] Dr. Kelsie Dominguez Calcium [Mass/Vol] 8.9 mg/dL Normal 8.5-10.1 [facility] Comment on above: Performed By: #### C MP, CMADM, BNP #### [facility] [address] [place] [address] Dr. Kelsie Dominguez Chloride [Moles/Vol] 98 mmol/L Normal 98-107 [facility] Comment on above: Performed By: #### C MP, CMADM, BNP #### [facility] [address] [place] [address] Dr. Kelsie Dominguez CO2 [Moles/Vol] 15.6 mmol/L Critically low 21.0-32.0 [facility] Comment on above: Performed By: #### C MP, CMADM, BNP #### [facility] [address] [place] [address] Dr. Kelsie Dominguez Creatinine [Mass/Vol] 2.18 mg/dL Critically high 0.55-1.02 [facility] Comment on above: Performed By: #### C MP, CMADM, BNP #### [facility] [address] [place] [address] Dr. Kelsei Dominguez EGFR-AF TRINIDADIAN 28 mL/min/1.73m2 Critically low >=60 [facility] Comment on above: Performed By: #### C MP, CMADM, BNP #### [facility] [address] [place] [address] Dr. Kelsie Dominguez EGFR-NON AF TRINIDADIAN 23 mL/min/1.73m2 Critically low >=60 [facility] Comment on above: Performed By: #### C MP, CMADM, BNP #### [facility] [address] [address] [address] Kelsie Dominguez Globulin (S) [Mass/Vol] 3.9 g/dL Normal [facility] Comment on above: Performed By: #### C MP, CMADM, BNP #### [facility] [address] [address] [address] Kelsie Dominguez Glucose [Mass/Vol] 587 mg/dL Critically high 74-106 [facility] Comment on above: Performed By: #### C MP, CMADM, BNP #### [facility] [address] [address] [address] Kelsie Dominguez Potassium [Moles/Vol] 6.6 mmol/L Critically high 3.5-5.1 [facility] Comment on above: Performed By: #### C MP, CMADM, BNP #### [facility] [address] [place] [address] Dr. Kelsie Dominguez Protein [Mass/Vol] 7.3 g/dL Normal 6.4-8.2 [facility] Comment on above: Performed By: #### C MP, CMADM, BNP #### [facility] [address] [address] [address] Kelsie Dominguez Sodium [Moles/Vol] 136 mmol/L Normal 136-145 [facility] Comment on above: Performed By: #### C MP, CMADM, BNP #### [facility] [address] [address] [address] Kelsie Dominguez Urea nitrogen [Mass/Vol] 25.0 mg/dL Critically high 7.0-18.0 [facility] Comment on above: Performed By: #### C MP, CMADM, BNP #### [facility] [address] [address] [address] Kelsie Dominguez Urea nitrogen/Creatinine [Mass ratio] 11.5 mg/mg Normal [facility] Comment on above: Performed By: #### C MP, CMADM, BNP #### [facility] [address] [address] [address] Kelsie Dominguez PROTIMEon 08-01-2022 INR Coag (PPP) [Relative time] 1.06 {INR} Normal [facility] Comment on above: Performed By: #### V ITAD #### [facility] [address] [place] [address] Dr. Kelsie Dominguez INR GUIDELINES SEE BELOW Normal [facility] Comment on above: Result Comment: EDDI RED INR: 2.0 - 3.0 CONDITIONS NOT LISTED BELOW 2.5 - 3.5 FOR PROSTHETIC HEART VALVE REPLACEMENT 2.5 - 3.5 RECURRENT THROMBOSIS Performed By: #### V ITAD #### [facility] [address] [place] [address] Dr. Kelsie Dominguez PT Coag (PPP) [Time] 11.4 s Normal 9.0-11.6 [facility] Comment on above: Performed By: #### V ITAD #### [facility] [address] [place] [address] Dr. Kelsie Dominguez PTTon 11-20-2021 aPTT Coag (Bld) [Time] 29.0 s Normal 22.3-36.2 [facility] Comment on above: Performed By: #### V ITAD #### [facility] [address] [place] [address] Dr. Kelsie Dominguez TROPONIN-Ion 11-20-2021 Troponin I.cardiac [Mass/Vol] 0.01 ng/mL Normal 0.00-0.04 [facility] Comment on above: Result Comment: REFE RENCE RANGES: 0.00 - 0.04 ng/ml NORMAL 0.05 - 0.50 ng/ml INDETERMINATE > 0.50 ng/ml CONSISTENT WITH AN M.I. Performed By: #### 8 [id number] #### [facility] [address] [place] [address], [facility] URINALYSISon 11-20-2021 Appearance (U) CLEAR Normal CLEAR [facility] Comment on above: Order Comment: Yes: Add to Previous draw if able Performed By: #### 1 0008 #### [facility] [address] [place] [address], [place] Bilirubin Ql (U) Negative Normal NEGATIVE [facility] Comment on above: Order Comment: Yes: Add to Previous draw if able Performed By: #### 1 0008 #### [facility] [address] [place] [address], [facility] Color (U) YELLOW Normal YELLOW [facility] Comment on above: Order Comment: Yes: Add to Previous draw if able Performed By: #### 1 0008 #### [facility] [address] [place] [address], [facility] EPIS NONE SEEN Normal FEW,OCC,NONE SEEN [facility] Comment on above: Order Comment: Yes: Add to Previous draw if able Performed By: #### 1 0008 #### [facility] [address] [place] [address], [place] Glucose Ql (U) >=1000 Abnormal NEGATIVE [facility] Comment on above: Order Comment: Yes: Add to Previous draw if able Performed By: #### 1 0008 #### [facility] [address] [place] [address], [place] Hemoglobin Ql (U) SMALL Abnormal NEGATIVE [facility] Comment on above: Order Comment: Yes: Add to Previous draw if able Performed By: #### 1 0008 #### [facility] [address] [place] [address], [place] KETONE Negative Normal NEGATIVE [facility] Comment on above: Order Comment: Yes: Add to Previous draw if able Performed By: #### 1 0008 #### [facility] [address] [place] [address], [place] LEUK DORIS Negative Normal NEGATIVE [facility] Comment on above: Order Comment: Yes: Add to Previous draw if able Performed By: #### 1 0008 #### [facility] [address] [place] [address], [place] MUCUS THREADS OCC Abnormal NONE SEEN [facility] Comment on above: Order Comment: Yes: Add to Previous draw if able Performed By: #### 1 0008 #### [facility] [address] [place] [address], [facility] Nitrite Ql (U) Negative Normal NEGATIVE [facility] Comment on above: Order Comment: Yes: Add to Previous draw if able Performed By: #### 1 0008 #### [facility] [address] [facility] [place] [address], [facility] pH (U) 6.0 [pH] Normal 5.0-8.0 [facility] Comment on above: Order Comment: Yes: Add to Previous draw if able Performed By: #### 1 0008 #### [facility] [address] [facility] [place] [address], [facility] Protein Ql (U) 30 Abnormal NEGATIVE The [facility] Comment on above: Order Comment: Yes: Add to Previous draw if able Performed By: #### 1 0008 #### [facility] [address] [facility]. [address] RBC 0-2 Abnormal NONE SEEN [facility] Comment on above: Order Comment: Yes: Add to Previous draw if able Performed By: #### 1 0008 #### [facility] [address] [facility] [place] [address], [facility] SPEC GRAV 1.015 Normal 1.015-1.020 The [facility] Comment on above: Order Comment: Yes: Add to Previous draw if able Performed By: #### 1 0008 #### [facility] [address] [place] [address], [facility] WBC UA 0-2 Abnormal NONE SEEN [facility] Comment on above: Order Comment: Yes: Add to Previous draw if able Performed By: #### 1 0008 #### [facility] [address] XR CHEST 1 Von 11-20-2021 XR [...] by: AMARA DAVISON Date: 2021-11-20 17:47 Normal [facility] ECHOCARDIO M/2D COMPLETEon 0 10-02-2021 ECHOCARDIO M/2D COMPLETE Patient: RAQUEL VILA Exam Date: 10/02/2021 : 1965 Gender:F Ordering : DR KATHERYN NIXON M.D. Admission #: [id number] Family : SHAIKH Silvino JACQUES . Order #: [id number] CLICK HERE TO VIEW EXAM ECHOCARDIOGRAM REPORT [...] Nixon M.D. on 10/03/2021 at 18:[address] Normal [facility] [address] HEAD_NECKon 09-17-[address] HEAD_NECK [...] AMARA DAVISON Date: 2021-09-17 09:22 Normal [facility] US THYROIDon 09-17-2021 US THYROID EXAMINATION: [...] one year is recommended. TR 4: The [place] [employer] TI-RADS committee's white paper recommendations for thyroid lesions classified as TR4 (moderately suspicious) are listed below: > 1.0 cm. Follow-up ultrasound in 1, 2, 3, and 5 years. > 1.5 cm. FNA. J. Am Alfonso Radiol 2017;14:587-595. Electronically authenticated by: AMARA DAVISON Date: 2021-09-17 09:29 Normal [facility] Vital Signs Date Time Vital Sign Value Performing Clinician Facility 02-08-2022 15:00-0400 Body height 165.1 cm Margarita Truman Other [facility] Other 02-08-2022 15:00-0400 Body mass index (BMI) [Ratio] 42.66 kg/m2 Margarita Truman Other [facility] Other 02-08-2022 15:00-0400 Body temperature 96.6 [degF] Margarita Truman Other [facility] Other 02-08-2022 15:00-0400 Body weight 116.3 kg Margarita Truman Other [facility] Other 02-08-2022 15:00-0400 Diastolic blood pressure 76 mm[Hg] Margarita Truman Other [facility] Other 02-08-2022 15:00-0400 Respiratory rate 18 /min Margarita Truman Other [facility] Other 02-08-2022 15:00-0400 SaO2% (BldA) [Mass fraction] 96 % Margarita Truman Other [facility] Other 02-08-2022 15:00-0400 Systolic blood pressure 114 mm[Hg] Margarita Truman Other [facility] Other 12-06-2021 12:35-0400 Body height 165.1 cm Isaias Gomez Other [facility] Other 12-06-2021 12:35-0400 Body mass index (BMI) [Ratio] 43.26 kg/m2 Isaias Gomez Other [facility] Other 12-06-2021 12:35-0400 Body temperature 97.3 [degF] Isaias Gomez Other [facility] Other 12-06-2021 12:35-0400 Body weight 117.94 kg Isaias Gomez Other [facility] Other 12-06-2021 12:35-0400 Respiratory rate 18 /min Isaias Gomez Other [facility] Other 12-06-2021 12:35-0400 SaO2% (BldA) [Mass fraction] 93 % Isaias Gomez Other [facility] Other 10-10-2021 14:05-0400 Blood Pressure Location [facility] [place] 10-10-2021 14:05-0400 Diastolic blood pressure 78 mm[Hg] Nalini NILL [facility] [place] 10-10-2021 14:05-0400 Heart rate 72 /min Nalini NILL [facility] [place] 10-10-2021 14:05-0400 Respiratory rate 16 /min Nalini NILL [facility] [place] 10-10-2021 14:05-0400 Systolic blood pressure 120 mm[Hg] Nalini NILL [facility] [place] 08-08-2021 16:00-0400 Body height 165.1 cm Margarita Truman Other [facility] Other 08-08-2021 16:00-0400 Body mass index (BMI) [Ratio] 48.89 kg/m2 Margarita Truman Other [facility] Other 08-08-2021 16:00-0400 Body temperature 97.8 [degF] Margarita Truman Other [facility] Other 08-08-2021 16:00-0400 Body weight 133.27 kg Margarita Truman Other [facility] Other 08-08-2021 16:00-0400 Diastolic blood pressure 78 mm[Hg] Margarita Truman Other [facility] Other 08-08-2021 16:00-0400 Respiratory rate 18 /min Margarita Truman Other [facility] Other 08-08-2021 16:00-0400 SaO2% (BldA) [Mass fraction] 95 % Margarita Truman Other [facility] Other 08-08-2021 16:00-0400 Systolic blood pressure 122 mm[Hg] Margarita Truman Other [facility] Other Encounters Encounter Date Encounter Type Care Provider Facility Start: 05-24-2023 End: 05-24-2023 ambulatory [facility] Start: 05-07-2023 End: 05-07-2023 ambulatory SHAIKH AMBAR Not Available Start: 04-25-2023 End: 04-25-2023 ambulatory [facility] Start: 12-07-2022 End: 12-07-2022 ambulatory [facility] Start: 11-01-2022 ambulatory Nalini LANDERS Facility:[facility] Start: 08-07-2022 End: 08-08-2022 ambulatory MARGARITA TRUMAN Facility:[facility] Start: 06-14-2022 End: 06-14-2022 ambulatory Margarita Truman Other [facility] Other Start: 06-14-2022 Telephone encounter Margarita Truman [facility] Start: 06-11-2022 End: 06-11-2022 ambulatory [facility] Start: 05-31-2022 End: 05-31-2022 ambulatory Giovana Crum Other [facility] Other Start: 05-31-2022 Telephone encounter Giovana Crum [facility] Start: 03-23-2022 End: 03-31-2022 ambulatory SHAIKH Ashley JACQUES Facility:[facility] Start: 02-14-2022 End: 02-15-[address] DOCTOR SHAHID Facility:[facility] Start: 02-08-2022 End: 02-08-2022 ambulatory Margarita Truman Other [facility] Other Start: 02-08-2022 Office outpatient visit 25 minutes Margarita Truman [facility] Start: 01-31-2022 End: 02-01-2022 ambulatory MARGARITA TRUMAN Facility:[facility] Start: 01-10-2022 End: 01-11-2022 ambulatory Nalini LANDERS Facility:[facility] Start: 01-10-2022 End: 01-10-2022 Patient encounter procedure Nalini LANDERS General Surgery [facility] Start: 12-27-2021 End: 12-28-[address] NALINI LANDERS . Facility:[facility] Start: 12-06-2021 End: 12-06-2021 ambulatory Isaias Gomez Other [facility] Other Start: 12-06-2021 Office outpatient visit 15 minutes Isaias Jason [facility] Start: 11-21-2021 End: 11-21-2021 ambulatory UNKNOWN PROVIDER Facility:[facility] Start: 11-20-2021 End: 11-24-2021 Evaluation and management of inpatient ERIC CONTE Facility:[facility] Start: 11-20-2021 End: 11-20-[address] AMARA DAVISON Facility: Start: 10-10-2021 End: 10-10-2021 Patient encounter procedure Nalini JULIENL General Surgery Nill[facility]Said [place] Start: 10-02-2021 End: 10-03-[address] KATHERYN NIXON Facility:[facility] Start: 09-16-2021 End: 09-17-[address] AMARA DAVISON Facility: Start: 08-08-2021 End: 08-08-2021 ambulatory Margarita Truman Other [facility] Other Start: 08-08-2021 Office outpatient visit 25 minutes Margarita Truman [facility] Ne[facility] Procedures Date Procedure Procedure Detail Performing Clinician Start: 04-25-2023 Follow-up visit Follow-up JANIA Bassett MATT section Nalini NIL L Deviated nasal septu m (disorder) Nalini NILL Excision of cyst Nalini NIL L Excision of uvula Nalini NI LL Rotator cuff syndrom e (disorder) Naliin NILL Comment on above: right Tonsillectomy and adenoidectomy Nalini NILL Immunizations Immunization Date Immunization Notes Care Provider Fa cility NEGATED: Highlighted row has not occurred!05-18-2020 influenza virus vaccine, unspecified formulation Nalini NILL [facility] [place] Payers Date Payer Category Payer Unknown [id number] 2.16. [id number] 1965 Unknown [id number] 2.16.8 [id number] 1965 Unknown [id number] 2.16.84 [id number] 1965 Unknown [id number] 2.16.84 0.1.993380.3.579.2.593 1965 Unknown [id number] 2.16.84 0.1.119239.3.579.2.593 1965 Unknown [id number] 2.16.84 0.1.003276.3.579.2.593 1965 Unknown [id number] 2.16.84 0.1.005183.3.579.2.593 1965 Unknown [id number] 2.16.84 0.1.084055.3.579.2.593 1965 Unknown [id number] 2.16.84 0.1.060556.3.579.2.593 1965 Unknown [id number] 2.16.84 0.1.491977.3.579.2.593 1965 Unknown [id number] 2.16.8 40.1.801716.3.579.2.727 1965 Unknown [id number] 2.16.8 40.1.259375.3.579.2.727 1965 Unknown [id number] 2.16.84 0.1.141932.3.579.2.1286 1965 Unknown [id number] 2.16.84 0.1.683617.3.579.2.1259 1959 Medicaid [id number] 1959 Unknown [id number] Unknown [id number] Social History Date Type Detail Facility Start: 10-10-2021 Tobacco smoking status Ex-smoker (fi ady) [facility] Other Tobacco smoking status Never Gener al Surgery [facility] Sex Assigned At Female [facility] Other Functional Status Date Assessment Result Facility 10-10-2021 Functional Status N/A General [facility] Clinical Notes 08-08-2021 to 05-24-2023 Note Date & Type Note Facility 05-24-2023 Note [facility] Subjective Raquel Vila is a 57 [...] exertion. No robbi (more content not included)... [facility] 12-07-[address] [facility] - [facility] Subjective Raquel Vila is a 56 [...] seen. Grade I: (more content not included)... [facility] 06-11-[address] [facility] - [facility] Subjective Raquel Vila is a 56 y.o. year old female patient being seen for 6 mo follow up HOCM, hypertension, and hyperlipidemia. Had labs in Jan 2022. She is down 27#. She hasn't had issues since her admission to [facility] in Nov 2021. Patient Active Problem [...] normal in mobility (more content not included)... [facility] 02-08-2022 Evaluation note Encounter Date Diagnosis Assessment [...] diuresis. Advised her to adequately hydrate herself. 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 PROCEDURE: Excisional biopsy of enlarging pilar cyst of the occipital and parietal scalp. SURGEON: Nalini Landers M.D. ANESTHESIA: Local with 0.5% Marcaine plain. [...] problems or questions. CC: Shaikh Ambar M.D.[id number] Evaluation note* Encounter Date Diagnosis Assessment Notes [...] days. She understands and agrees with plan. [employer] Other 08-05-2022 NoteMR#: [id number] I [facility] Pt. Name: Raquel Vila Admitted: 11/20/2021 Discharged: [...] initially transcutaneously paced and sent to the [facility] for further management. The patient was intubated and mechanically ventilated prior to her transfer to [facility]. The patient was admitted to the [...] Conte MD Date Trans: 11/24/2021 04:50 P/jenny [id number] cc: Lisbeth Grace M.D. [address] [place] [id number]* Encounter Date Diagnosis Assessment [...] Will prescribe allopurinol if she gets symptoms. [employer] Other Evaluation + Plan note No data available for this section General Surgery [place] Evaluation noteNo InformationNort [facility] Other History general Narrative - Reported* Type [...] PNEUMONIA, BLOOD CLOT IN THE LUNG 07/2020 [employer] Other History general Narrative - Reported* Type [...] REACTION MIXING MET OPROLOL AND LEXAPRO 11/2021 [employer] Other [place] general Narrative - Reported* Type Description Date [...] REACTION MIXING MET OPROLOL AND LEXAPRO 11/2021 [employer] Other Hospital Discharge instructions No data available for this section General Surgery [place] Progress note No data available for this section General Surgery [place] Summary Purpose Family History No Family History [...] content) Personnel Name: Lisbeth Grace MD Address: [address] [place] [address] Personnel Name: Lisbeth Grace MD Address: [address] [place] [address] [place] [address]- REASON FOR VISIT (unrecogniz ed section and content) CKDGRAY LEW FOCUS, COUGH, C ONGESTION, DIZZINESS, H/A, SINUS DRAINAGE,CKD and HTNREFILLREFILL INFORMATION SOURCE (unrecogn ized section and content) DATE CREATED AUTHOR 11/22/2021 [facility] [employer] DATE CREATED AUTHOR AUTHOR'S ORGANIZ ATION 12/01/2021 [facility] DATE CREATED AUTHOR AUTHOR'S ORGANIZ ATION 09/05/2022 [facility] DATE CREATED AUTHOR AUTHOR'S ORGANIZ ATION 11/02/2022 [facility] DATE CREATED AUTHOR AUTHOR'S ORGANIZ ATION 04/28/2023 [facility] DATE CREATED AUTHOR AUTHOR'S ORGANIZ ATION 05/08/2023 [facility] DATE CREATED AUTHOR AUTHOR'S ORGANIZ ATION 05/25/2023 [facility] FOR RECORDS PERTAINING TO PATIENTS WHO ARE [...] BE BASED ON THE PRIMARY CLINICAL RECORDS. [facility] [employer] [facility]. provides no warranty or guarantee of the accuracy or completeness of information in this document.
[2023-06-01 10:24] LABS: Basophils Percent Auto 0.4 % (0.2-2.0); Eosinophils Absolute Auto 0.2 10^3/uL (0.0-0.7); Eosinophils Percent Auto 2.8 % (0.9-7.0); Hematocrit 42.6 % (36.0-48.0); Hemoglobin 13.9 g/dL (12.0-16.0); Immature Granulocytes Abs Auto 0.02 10^3/uL (0.00-0.03); Immature Granulocytes Pct Auto 0.3 % (0.0-0.5); Lymphocytes Absolute Auto 1.3 10^3/uL (1.2-3.8); Mean Corpuscular HGB Conc 32.6 g/dL (29.9-35.2); Mean Corpuscular Hemoglobin 30.8 pg (26.7-34.0); Mean Corpuscular Volume 94.2 fL (81.0-99.0); Mean Platelet Volume 9.4 fL (9.5-13.5); Monocytes Absolute Auto 0.4 10^3/uL (0.3-0.8); Monocytes Percent Auto 6.4 % (1.7-12.0); Neutrophils Absolute Auto 4.7 10^3/uL (1.4-6.5); Neutrophils Percent Auto 70.1 % (43.0-75.0); Platelet Count 167 10^3/uL (150-450); Red Blood Count 4.52 10^6/uL (4.20-5.40); Red Cell Distribution Width 13.2 % (11.0-15.0); White Blood Count 6.7 10^3/uL (4.0-11.0)
[2023-06-01 11:00] LABS: Alanine Aminotransferase 41 U/L (14-59); Albumin Globulin Ratio 0.8; Albumin Level 3.5 g/dL (3.4-5.0); Alkaline Phosphatase 145 U/L (46-116); Anion Gap 13.1; Aspartate Amino Transferase 27 U/L (15-37); BUN Creatinine Ratio 21.7; Bilirubin Total 0.2 mg/dL (0.2-1.0); Carbon Dioxide 28.2 mmol/L (21.0-32.0); Chloride 106 mmol/L (98-107); Chol HDL Ratio 3.2; Cholesterol 172 mg/dL (<=200); Estimated GFR (African America 48 (>=60); Estimated GFR (Non-African Ame 39 (>=60); Globulin 4.3 g/dL; Glucose 126 mg/dL (74-106); HDL Cholesterol 54 mg/dL (40-60); Potassium 4.3 mmol/L (3.5-5.1); Sodium 143 mmol/L (136-145); Total Protein 7.8 g/dL (6.4-8.2); Triglycerides 164 mg/dL (<=150); VLDL CHOLESTEROL 32.8 mg/dL
[2023-06-01 11:19] LABS: Estimated Average Glucose 114 mg/dL; Glycohemoglobin A1C 5.6 % (4.5-6.2)
[2023-06-01 11:27] LABS: Creatinine Urine Random 93.62 mg/dL (20.00-300.00); Protein Creatinine Ratio Urine 0.14; Total Protein Urine Random 12.7 mg/dL (<=11.9)
== END 2023-06-01 09:58 | disposition home or self-care (01) ==
LOC: LAB 09:59
PROVIDERS: PCP Internal Medicine; Visit Provider Internal Medicine
DX: E78.5 Hyperlipidemia, unspecified (principal); E11.22 Type 2 diabetes mellitus with diabetic chronic kidney disease; N18.4 Chronic kidney disease, stage 4 (severe); Z79.4 Long term (current) use of insulin; I10 Essential (primary) hypertension
CPT/HCPCS: 36415; 80053; 80061; 82570; 83036; 84156; 85025

== ENCOUNTER 2023-06-17 13:35 | Outpatient (OUT) | payer OTHER, SELFPAY ==
--- NOTE | 2023-06-17 13:40 | MR_ITS ---
The [address] [address] Patient Name: RAQUEL MAURICE MRN: [facility]:[id number] date: 1965 Sex: F Assigned Patient Location: MRI Current Patient Location: MRI Accession/Order Number: [id number] Exam Date: 06/17/2023 13:50 Report Date: 06/17/2023 17:07 At the request of: AMARA LOU Procedure: MR shoulder LT wo con HISTORY: Acute pain of the left shoulder. No known injury. MR SHOULDER LT WO CON: 06/17/2023 1:50 PM EST COMPARISON: Radiographs left shoulder 05/27/2023. TECHNIQUE: Multiplanar, multisequence MRI images of the shoulder were obtained. FINDINGS: A few images are slightly degraded by motion artifact. ACROMIOCLAVICULAR JOINT AND ROTATOR CUFF OUTLET: There are moderate degenerative changes of the acromioclavicular joint with subacromial fat effacement. There is a type I acromion. There is a subacromial enthesophyte. There is a small amount of edema-like signal in the subacromial/subdeltoid space. ROTATOR CUFF: There is a full-thickness tear of the majority of the supraspinatus tendon from the greater tuberosity with retraction of the tendon approximately 2 cm along the superior aspect of the humeral head. There is moderate tendinopathy of the infraspinatus tendon and there is a high-grade partial-thickness tear involving the bursal surface of the distal 2 cm of the anterior half of the tendon with severe thinning of the tendon in this region. There is severe tendinopathy of the distal subscapularis tendon. Superimposed on this tendinopathy is a moderate-grade longitudinal intrasubstance tear of the distal 1.1 cm of the tendon involving approximately 50% of tendon thickness. There is mild atrophy of the supraspinatus and infraspinatus muscles. There is no atrophy of the remainder of the rotator cuff muscles. BICEPS TENDON AND LABRUM: There is medial subluxation of the long bicipital tendon from the bicipital groove and there is a focal high-grade longitudinal partial-thickness tear of the proximal long bicipital tendon. There is a moderate amount of fluid surrounding the tendon within the bicipital groove. There is mild degenerative blunting of the free edge of the superior labrum. The remainder of the labrum appears within normal limits. GLENOHUMERAL JOINT: The articular cartilage appears grossly within normal limits. There is a small joint effusion. BONES: The bone marrow signal intensity is age appropriate. There is enthesophyte formation and subcortical cystic change with bone marrow edema involving the anterior greater tuberosity. There is also mild subcortical cystic change and bone marrow edema within the lesser tuberosity. MR/MR shoulder LT wo con IMPRESSION: 1. Full-thickness tear of the majority of the supraspinatus tendon with tendon retraction of approximately 2 cm. There is also moderate tendinopathy and a high-grade partial-thickness tear of the bursal surface of the distal 2 cm of the anterior half of the infraspinatus tendon. There is mild atrophy of these muscles. 2. Severe tendinopathy and moderate-grade longitudinal intrasubstance tear of the distal 1.1 cm of the subscapularis tendon. This is associated with medial subluxation of the long bicipital tendon from the bicipital groove and there is a focal high-grade longitudinal partial-thickness tear of the proximal long bicipital tendon. 3. Moderate acromioclavicular joint osteoarthritis with subacromial fat effacement. There is also a small subacromial enthesophyte. These findings are a likely cause for rotator cuff impingement syndrome. Electronically authenticated by: LISBETH GODWIN Date: 06/17/2023 17:07
== END 2023-06-17 13:36 | disposition home or self-care (01) ==
LOC: MRI 13:35
PROVIDERS: PCP Internal Medicine; Visit Provider Orthopaedic Surgery
DX: M25.512 Pain in left shoulder (principal); M75.122 Complete rotator cuff tear or rupture of left shoulder, not specified as traumatic
CPT/HCPCS: 73221

== ENCOUNTER 2023-06-19 09:46 | Outpatient (RCR) | payer OTHER, SELFPAY | END 2023-06-20 11:56 | disposition home or self-care (01) | LOC: PT 09:46 | PROVIDERS: PCP Internal Medicine; Visit Provider Orthopaedic Surgery | DX: M17.0 Bilateral primary osteoarthritis of knee (principal) | CPT/HCPCS: 97163 ==

== ENCOUNTER 2023-09-01 21:00 | Outpatient (OUT) | payer OTHER, SELFPAY | END 2023-09-01 21:01 | disposition home or self-care (01) | LOC: SLEEP 09-02 07:43 | PROVIDERS: PCP Internal Medicine; Visit Provider Internal Medicine | DX: G47.33 Obstructive sleep apnea (adult) (pediatric) (principal) | CPT/HCPCS: 95810 ==

== ENCOUNTER 2023-09-30 12:21 | Outpatient (OUT) | payer OTHER, SELFPAY ==
--- OUTSIDE RECORDS SUMMARY | 2023-09-30 12:46 | XMS_ITS | CCD ---
Author Organization [facility] Care Team Providers Care Grips Name Role Phone Lisbeth Grace Primary Care Physician Truman, Margarita Unavailable PROVIDER, UNKNOWN Attending Unavailable PROVIDER, UNKNOWN Admitting Unavailable ERIC CONTE Attending Unavailable REMINGTON NOLAN Admitting Unavailable SELF, REFERRED Referring Unavailable LISBETH GRACE Primary Care Unavailable Isaias Gomez Unavailable Giovana Crum Unavailable TIFFANI, DR CAMPA Admitting Unavailable TIFFANI, DR CAMPA Attending Unavailable TIFFANI, DR CAMPA Consulting Unavailable FAWWAD, TILLMAN H [...] Care Unavailable MISC, DR ASHRAF Consulting Unavailable LANEY, DR AMARA Segundo Consulting Unavailable TRUMAN, MARGARITA Admitting Unavailable TRUMAN, MARGARITA Attending Unavailable TRUMAN, MARGARITA Consulting Unavailable FAWWAD, TILLMAN H Primary Care Unavailable FAWWAD, TILLMAN H Admitting Unavailable FAWWAD, TILLMAN H Attending Unavailable FAWWAD, TILLMAN H Primary Care Unavailable LANEY, DR AMARA Segundo Consulting Unavailable JUAN CARLOS ., BRITTNEY Admitting Unavailable FAWWAD, TILLMAN H Primary Care Unavailable JUAN CARLOS ., BRITTNEY Attending Unavailable JUAN CARLOS ., BRITTNEY Consulting Unavailable NILL ., DR GAYLE Admitting Unavailable NILL ., DR GAYLE Attending Unavailable NILL ., DR GAYLE Consulting Unavailable FAWWAD, TILLMAN H Primary Care Unavailable MAJO SRIVASTAVA Consulting Unavailable Nalini LANDERS Attending Unavailable NILLNalini Attending Unavailable MOUKARBEL, KATHERYN Attending Unavailable MOUKARBEL, KATHERYN Attending Unavailable MOUKARBEL, KATHERYN Attending Unavailable MATTJANIA Attending Unavailable FAWWAD, TILLMAN Referring Unavailable FAWWAD, TILLMAN Primary Care Unavailable MATT, JANIA Bassett Attending Unavailable FAWWAD, TILLMAN Referring Unavailable FAWWAD, TILLMAN Primary Care Unavailable HEALTH, [facility] Referring Unavailable FAWWAD, TILLMAN Primary Care Unavailable FAWWAD, TILLMAN Attending Unavailable FAWWAD, TILLMAN Attending Unavailable FAWWAD, TILLMAN Attending Unavailable FAWWAD, TILLMAN Attending Unavailable FAWWAD, TILLMAN Referring Unavailable FAWWAD, TILLMAN Primary Care Unavailable FAWWAD, TILLMAN Referring Unavailable FAWWAD, TILLMAN Primary Care Unavailable FAWWAD, TILLMAN Referring Unavailable FAWWAD, TILLMAN Primary Care Unavailable FAWWAD, TILLMAN Referring Unavailable FAWWAD, TILLMAN Primary Care Unavailable Allergies Allergy Classification Reported Allergen(s) Allergy Type Date of Onset Reaction(s) Facility (1 source) No Known Medication Allergies; Translations: [No Known Medication Allergies] Propensity to adverse reactions (disorder) [facility] Repository Medications Current Medications Medication Drug [...] 09/26/21 Status: Ordered take 1 tablet by [facility] every twenty-four hours Farxiga 10 MG 1 [...] by mouth every week Ergocalciferol 1.25 MG (97910 UT) 1 capsule Orally Q week for [...] Problem Classification Problem Date Documented Date Episodic/Chronic Administrative/social admission (1 source) Encounter for pre-employment examination; Translations: [Encounter for pre-employment examination] Onset: 4 Episodic Anxiety disorders (4 sources) Mixed anxiety and [...] codes; unclassified (2 sources) Insomnia 05-04-2020 Episodic Residual codes; unclassified (2 sources) Pain, unspecified; Translations: [PAIN UNSPECIFIED] Onset: 2 Episodic Retinal detachments; defects; vascular occlusion; and [...] 03-28-2022 Episodic Other aftercare (1 source) 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; Translations: [OTH 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 DRUG THERAPY] Onset: 01-04-2022 Episodic Other aftercare (1 source) 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; Translations: [RESIDENTIAL CURRENT USE OF ASPIRIN] Onset: 01-04-2022 Episodic Other aftercare (1 source) terminal operations supervisor (current) use of insulin; Translations: [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 SUPERVISOR CURRENT USE OF INSULIN] Onset: 01-04-2022 Episodic Other aftercare (1 source) care home (current) use of anticoagulants; Translations: [RESIDENTIAL CURRNT USE ANTICOAGULANTS] Onset: 11-22-2021 Episodic Other [...] 03-13-2022 Episodic Residual codes; unclassified (1 source) Transient alteration of awareness; Translations: [TRANSIENT ALTERATION OF AWARENESS] Onset: 11-22-2021 Episodic Shock (1 source) Cardiogenic shock; Translations: [CARDIOGENIC SHOCK] Onset: 11-22-2021 Episodic Unclassified (2 sources) Drug therapy finding 10-10-2021 Results Test Name Value Interpretation Reference Range Facility HBV surface Ab IA Qnon 06-13 Anti HBs quant. <8.00 Normal [facility] Comment on above: Result Comment: Vacc inated: >=12mIU/mL, Positive (Immune) Unvaccinated: <8mIU/mL, Negative (Not Immune) 8-11.99 mIU/mL: Indeterminate, (Considered Not Immune) Performed By: #### 5 193-8, 8014-3, 6476-6, 66405-3, 61649-6 #### [facility] ([id number]) [address], [address] [place] [address] MeV IgG IA Ql (S)on 06-13-19 24 RUBEOLA AB SCREEN 2.2 AI High <0.9 [facility] Comment on above: Result Comment: POSI TIVE: Antibody(IgG) detected. Indicates previous exposure to rubeola virus and immunity. Performed By: #### 5 193-8, 8014-3, 6476-6, 19588-5, 84225-7 #### [facility] ([id number]) [address] [place] [address], [address] [place] [address] MuV IgG IA Ql (S)on 06-13-19 MUMPS VIRUS IgG 4.0 AI High <0.9 [facility] Comment on above: Result Comment: Interpretation-------- <0.9 Negative 0.9 - 1.0 Equivocal >1.0 Positive Performed By: #### 5 193-8, 8014-3, 6476-6, 74636-3, 12583-7 #### [facility] ([id number]) [address] [place] [address], [address] [place] [address] Rubella virus IgG Qn (S)on 0 06-13-2023 RUBELLA IgG 104 IU/mL Normal [facility] Comment on above: Result Comment: Interpretation-------- <8 NEGATIVE-considered Not Immune 8-9 EQUIVOCAL-consider retesting with new specimen >9 POSITIVE-considered Immune Performed By: #### 5 193-8, 8014-3, 6476-6, 01200-3, 17185-6 #### [facility] ([id number]) [address] [place] [address], [address] [place] [address] VZV IgG IA Ql (S)on 06-13-19 VARICELLA IgG 1.6 AI High <0.9 [facility] Comment on above: Result Comment: Interpretation-------- <0.9 Negative 0.9 - 1.0 Equivocal >1.0 Positive Performed By: #### 5 193-8, 8014-3, 6476-6, 82848-5, 85878-9 #### [facility] ([id number]) [address] [place] [address], [address] [place] [address] Office Visiton 05-24-2023 Follow-up visit [id number] Jessica Vila 1965 Provider Department Center 05/24/2023 KATHERYN MARTINEZ ROLY Yap Family History Problem Relation Age of Onset Breast cancer Mother Family Status - Relation Status Age at Mother Level of Service:58757 [place] OFFICE/OUTPATIENT ESTABLISHED MOD MDM 30 MIN Normal [facility] Office Visiton 12-07-2022 Follow-up visit [id number] Jessica Vila 1965 Provider Department Center 12/07/2022 KATHERYN MARTINEZ Family History Problem Relation Age of Onset Breast cancer Mother Family Status - Relation Status Age at Mother Level of Service:29404 AR OFFICE/OUTPATIENT ESTABLISHED LOW MDM 20-29 MIN Reason for Visit and Comments: Follow-up [968320] - 6 MONTH FOLLOW UP Normal [facility] PTH INTACTon 08-08-2022 PTH, Intact 34 pg/mL Normal 15-65 [facility] Comment on above: Performed By: #### C BCMAN #### [facility] [address] [place] [address] Dr. Kelsie Dominguez HEMOGRAM AND PLATELon 2022 Hematocrit (Bld) [Volume fraction] 38.1 % Normal 36.0-48.0 [facility] Comment on above: Performed By: #### H H #### [facility] [address] [place] [address] Dr. Kelsie Dominguez Hemoglobin (Bld) [Mass/Vol] 12.5 g/dL Normal 12.0-16.0 [facility] Comment on above: Performed By: #### H H #### [facility] [address] [place] [address] Dr. Kelsie Dominguez MCH (RBC) [Entitic mass] 29.8 pg Normal 26.7-34.0 [facility] Comment on above: Performed By: #### H H #### [facility] [address] [place] [address] Dr. Kelsie Dominguez MCHC (RBC) [Mass/Vol] 32.8 g/dL Normal 29.9-35.2 [facility] Comment on above: Performed By: #### H H #### [facility] [address] [place] [address] Dr. Kelsie Dominguez MCV (RBC) [Entitic vol] 90.9 fL Normal 81.0-99.0 [facility] Comment on above: Performed By: #### H H #### [facility] [address] [address] [address] Kelsie Dominguez PLT 207 103/ul Normal 150-450 [facility] Comment on above: Performed By: #### H H #### [facility] [address] [place] [address] Dr. Kelsie Dominguez RBC 4.19 106/ul Critically low 4.20-5.40 [facility] Comment on above: Performed By: #### H H #### [facility] [address] [address] [address] Kelsie Dominguez WBC 5.1 103/ul Normal 4.0-11.0 [facility] Comment on above: Performed By: #### H H #### [facility] [address] [place] [address] Dr. Kelsie Dominguez MAGNESIUMon 08-07-2022 Magnesium [Mass/Vol] 1.9 mg/dL Normal 1.8-2.4 [facility] Comment on above: Performed By: #### H H #### [facility] [address] [place] [address] Dr. Kelsie Dominguez RENAL FUNCTION PANELon 08-07 Albumin [Mass/Vol] 3.0 g/dL Critically low 3.4-5.0 [facility] Comment on above: Performed By: #### H H #### [facility] [address] [place] [address] Dr. Kelsie Dominguez Calcium [Mass/Vol] 9.1 mg/dL Normal 8.5-10.1 [facility] Comment on above: Performed By: #### H H #### [facility] [address] [place] [address] Dr. Kelsie Dominguez Chloride [Moles/Vol] 103 mmol/L Normal 98-107 [facility] Comment on above: Performed By: #### H H #### [facility] [address] [place] [address] Dr. Kelsie Dominguze CO2 [Moles/Vol] 24.9 mmol/L Normal 21.0-32.0 [facility] Comment on above: Performed By: #### H H #### [facility] [address] [place] [address] Dr. Kelsie Dominguez Creatinine [Mass/Vol] 1.75 mg/dL Critically high 0.55-1.02 [facility] Comment on above: Performed By: #### H H #### [facility] [address] [place] [address] Dr. Kelsie Dominguez EGFR-AF ERITREAN 36 mL/min/1.73m2 Critically low >=60 [facility] Comment on above: Performed By: #### H H #### [facility] [address] [address] [address] Kelsie Dominguez EGFR-NON AF ERITREAN 30 mL/min/1.73m2 Critically low >=60 [facility] Comment on above: Performed By: #### H H #### [facility] [address] [address] [address] Kelsie Dominguez Glucose [Mass/Vol] 222 mg/dL Critically high 74-106 [facility] Comment on above: Performed By: #### H H #### [facility] [address] [address] [address] Kelsie Dominguez Phosphate [Mass/Vol] 3.6 mg/dL Normal 2.6-4.7 [facility] Comment on above: Performed By: #### H H #### [facility] [address] [address] [address] Kelsie Dominguez Potassium [Moles/Vol] 3.6 mmol/L Normal 3.5-5.1 [facility] Comment on above: Performed By: #### H H #### [facility] [address] [address] [address] Kelsie Dominguez Sodium [Moles/Vol] 141 mmol/L Normal 136-145 [facility] Comment on above: Performed By: #### H H #### [facility] [address] [address] [address] Kelsie Dominguez Urea nitrogen [Mass/Vol] 31.0 mg/dL Critically high 7.0-18.0 [facility] Comment on above: Performed By: #### H H #### [facility] [address] [address] [address] Kelsie Dominguez UA RANDOM W/MICROSCOPICon BACTERIA NONE SEEN Normal NONE SEEN [facility] Comment on above: Performed By: #### V ITAD #### [facility] [address] [address] [address] Kelsie Dominguez Bilirubin Ql (U) Negative Normal NEGATIVE [facility] Comment on above: Performed By: #### V ITAD #### [facility] [address] [place] [address] Dr. Kelsie Dominguez CAST NONE SEEN Normal NONE SEEN [facility] Comment on above: Performed By: #### V ITAD #### [facility] [address] [place] [address] Dr. Kelsie Dominguez Clarity (U) CLEAR Normal CLEAR [facility] Comment on above: Performed By: #### V ITAD #### [facility] [address] [place] [address] Dr. Kelsie Dominguez Color (U) LT. YELLOW Normal YELLOW [facility] Comment on above: Performed By: #### V ITAD #### [facility] [address] [place] [address] Dr. Kelsie Dominguez Crystals LM Nom (Urine sed) NONE SEEN Normal NONE SEEN [facility] Comment on above: Performed By: #### V ITAD #### [facility] [address] [place] [address] Dr. Kelsie Dmoinguez Epithelial cells LM Ql (Urine sed) RARE Normal NONE SEEN /RARE [facility] Comment on above: Performed By: #### V ITAD #### [facility] [address] [place] [address] Dr. Kelsie Dominguez Glucose Ql (U) 250 mg/dl Abnormal NEGATIVE [facility] Comment on above: Performed By: #### V ITAD #### [facility] [address] [place] [address] Dr. Kelsie Dominguez Hemoglobin Ql (U) SMALL Abnormal NEGATIVE [facility] Comment on above: Performed By: #### V ITAD #### [facility] [address] [place] [address] Dr. Kelsie Dominguez Ketones Ql (U) Negative Normal NEGATIVE [facility] Comment on above: Performed By: #### V ITAD #### [facility] [address] [place] [address] Dr. Kelsie Dominguez LEUKOCYTES TRACE Abnormal NEGATIVE [facility] Comment on above: Performed By: #### V ITAD #### [facility] [address] [address] [address] Kelsie Dominguez MUCOUS TRACE Abnormal NONE SEEN [facility] Comment on above: Performed By: #### V ITAD #### [facility] [address] [place] [address] Dr. Kelsie Dominguez Nitrite Ql (U) Negative Normal NEGATIVE [facility] Comment on above: Performed By: #### V ITAD #### [facility] [address] [place] [address] Dr. Kelsie Dominguez pH (U) 6.0 [pH] Normal 5-9 [facility] Comment on above: Performed By: #### V ITAD #### [facility] [address] [place] [address] Dr. Kelsie Dominguez RBC 5-10 Abnormal 0-2 [facility] Comment on above: Performed By: #### V ITAD #### [facility] [address] [place] [address] Dr. Kelsie Dominguez SPEC GRAVITY 1.010 Normal 1.005-<=1.02 5 [facility] Comment on above: Performed By: #### V ITAD #### [facility] [address] [place] [address] Dr. Kelsie Dominguez UA PROTEIN Negative Normal NEGATIVE/ TRACE [facility] Comment on above: Performed By: #### V ITAD #### [facility] [address] [place] [address] Dr. Kelsie Dominguez Urobilinogen Qn (U) 0.2 {Miguel'U}/dL Normal 0.2 - 1. 0 [facility] Comment on above: Performed By: #### V ITAD #### [facility] [address] [place] [address] Dr. Kelsie Dominguez WBC 10-20 Abnormal NONE SEEN [facility] Comment on above: Performed By: #### V ITAD #### [facility] [address] [place] [address] Dr. Kelsie Dominguez URIC ACID SERUMon 08-07-2022 Urate [Mass/Vol] 10.2 mg/dL Critically high 2.6-6.0 [facility] Comment on above: Performed By: #### H H #### [facility] [address] [address] [address] Kelsie Dominguez URINE T PROTEIN CREAT RATIOo n 08-07-2022 Protein (U) [Mass/Vol] 25.3 mg/dL Critically high <=12.0 [facility] Comment on above: Performed By: #### V ITAD #### [facility] [address] [place] [address] Dr. Kelsie Dominguez UR PROT CREAT RAT 0.21 Normal [facility] Comment on above: Performed By: #### V ITAD #### [facility] [address] [place] [address] Dr. Kelsie Dominguez URINE CREAT 121.04 mg/dL Normal 20.00-300.00 [facility] Comment on above: Performed By: #### V ITAD #### [facility] [address] [place] [address] Dr. Kelsie Dominguez VITAMIN D 25 OHon 08-07-2022 VIT D 25-OH 30.9 ng/mL Normal [facility] Comment on above: Performed By: #### V ITAD #### [facility] [address] [place] [address] Dr. Kelsie Dominguez VIT D RANGES SEE BELOW Normal [facility] Comment on above: Result Comment: <20 ng/mL Vit D deficient 20 - <30 ng/mL Vit D insufficient 30 - 100 ng/mL Vit D sufficient >100 ng/mL Potential Toxicity Performed By: #### V ITAD #### [facility] [address] [place] [address] Dr. Kelsie Dominguez Office Visiton 06-11-2022 Follow-up visit [id number] Jessica Vila 1965 F Date Provider Department Center 06/11/2022 KATHERYN MARTINEZ [facility] Family History Problem Relation Age of Onset Breast cancer Mother Family Status - Relation Status Age at Mother Level of Service:04649 [place] OFFICE/OUTPATIENT ESTABLISHED LOW MDM 20-29 MIN Reason for Visit and Comments: Hyperlipidemia [182] Hypertension [035291] Cardiomyopathy [104] Normal [facility] MG MAMM SCREEN 3D AARON CADon 02-14-2022 MG MAMM SCREEN 3D AARON CAD Patient: RAQUEL VILA Exam Date: 02/14/2022 : 1965 Gender:F Ordering : DR. SHREYAS LONG M.D. Admission #: [id number] Family : Order #: [id number] CLICK HERE TO VIEW EXAM RADIOLOGY REPORT [...] unknown cancer at age 72. LOCATION: [facility] BREAST COMPOSITION: Scattered areas fibroglandular density. FINDINGS: [...] MD on 02/14/2022 at 11:22 Normal [facility] XR DEXA BONE DENSITYon 02-14 XR DEXA [...] Moderate Fracture Risk Electronically authenticated by: AMARA DAVISON Date: 2022-02-14 21:14 Normal [facility] PTH INTACTon 02-02-2022 PTH, Intact 23 pg/mL Normal 15-65 [facility] Comment on above: Performed By: #### C LIBERTAD #### [facility] [address] [place] [address] Dr. Kelsie Dominguez FERRITINon 01-31-2022 Ferritin [Mass/Vol] 96.0 ng/mL Normal 8.0-252.0 [facility] Comment on above: Performed By: #### C LIBERTAD #### [facility] [address] [place] [address] Dr. Kelsie Dominguez HEMOGRAM AND PLATELon 2021 Hematocrit (Bld) [Volume fraction] 38.7 % Normal 36.0-48.0 [facility] Comment on above: Performed By: #### H H #### [facility] [address] [place] [address] Dr. Kelsie Dominguez Hemoglobin (Bld) [Mass/Vol] 12.4 g/dL Normal 12.0-16.0 [facility] Comment on above: Performed By: #### H H #### [facility] [address] [place] [address] Dr. Kelsie Dominguez MCH (RBC) [Entitic mass] 31.3 pg Normal 26.7-34.0 [facility] Comment on above: Performed By: #### H H #### [facility] [address] [place] [address] Dr. Kelsie Dominguez MCHC (RBC) [Mass/Vol] 32.0 g/dL Normal 29.9-35.2 [facility] Comment on above: Performed By: #### H H #### [facility] [address] [place] [address] Dr. Kelsie Dominguez MCV (RBC) [Entitic vol] 97.7 fL Normal 81.0-99.0 [facility] Comment on above: Performed By: #### H H #### [facility] [address] [place] [address] Dr. Kelsie Dominguez PLT 157 103/ul Normal 150-450 [facility] Comment on above: Performed By: #### H H #### [facility] [address] [place] [address] Dr. Kelsie Dominguez RBC 3.96 106/ul Critically low 4.20-5.40 [facility] Comment on above: Performed By: #### H H #### [facility] [address] [address] [address] Kelsie Dominguez WBC 6.8 103/ul Normal 4.0-11.0 [facility] Comment on above: Performed By: #### H H #### [facility] [address] [place] [address] Dr. Kelsie Dominguez IRON AND TIBCon 01-31-2022 % SATURATION 16.4 % Normal [facility] Comment on above: Performed By: #### Swapna MAURER #### [facility] [address] [place] [address] Dr. Kelsie Dominguez Iron [Mass/Vol] 44.0 ug/dL Critically low 50.0-170.0 [facility] Comment on above: Performed By: #### Swapna MAURER #### [facility] [address] [place] [address] Dr. Kelsie Dominguez TIBC DIRECT 268.0 ug/dL Normal 250.0-450.0 [facility] Comment on above: Performed By: #### Swapna MAURER #### [facility] [address] [place] [address] Dr. Kelsie Dominguez MAGNESIUMon 01-31-2022 Magnesium [Mass/Vol] 1.9 mg/dL Normal 1.8-2.4 [facility] Comment on above: Performed By: #### M Mary, RENAL, URIC #### [facility] [address] [place] [address] Dr. Kelsie Dominguez RENAL FUNCTION PANELon 01-31 Albumin [Mass/Vol] 3.3 g/dL Critically low 3.4-5.0 [facility] Comment on above: Performed By: #### M G, RENAL, URIC #### [facility] [address] [address] [address] Kelsie Dominguez Calcium [Mass/Vol] 9.3 mg/dL Normal 8.5-10.1 [facility] Comment on above: Performed By: #### M G, RENAL, URIC #### [facility] [address] [address] [address] Kelsie Dominguez Chloride [Moles/Vol] 110 mmol/L Critically high 98-107 [facility] Comment on above: Performed By: #### M G, RENAL, URIC #### [facility] [address] [address] [address] Kelsie Dominguez CO2 [Moles/Vol] 24.0 mmol/L Normal 21.0-32.0 [facility] Comment on above: Performed By: #### M G, RENAL, URIC #### [facility] [address] [address] [address] Kelsie Dominguez Creatinine [Mass/Vol] 1.37 mg/dL Critically high 0.55-1.02 [facility] Comment on above: Performed By: #### M G, RENAL, URIC #### [facility] [address] [address] [address] Kelsie Dominguez EGFR-AF ERITREAN 48 mL/min/1.73m2 Critically low >=60 [facility] Comment on above: Performed By: #### M G, RENAL, URIC #### [facility] [address] [address] [address] Kelsie Dominguez EGFR-NON AF ERITREAN 40 mL/min/1.73m2 Critically low >=60 [facility] Comment on above: Performed By: #### M G, RENAL, URIC #### [facility] [address] [address] [address] Kelsie Dominguez Glucose [Mass/Vol] 280 mg/dL Critically high 74-106 [facility] Comment on above: Performed By: #### M G, RENAL, URIC #### [facility] [address] [address] [address] Kelsie Dominguez Phosphate [Mass/Vol] 3.7 mg/dL Normal 2.6-4.7 The [facility] Comment on above: Performed By: #### M G, RENAL, URIC #### [facility] [address] [place] [address] Dr. Kelsie Dominguez Potassium [Moles/Vol] 4.4 mmol/L Normal 3.5-5.1 [facility] Comment on above: Performed By: #### M G, RENAL, URIC #### [facility] [address] [place] [address] Dr. Kelsie Dominguez Sodium [Moles/Vol] 146 mmol/L Critically high 136-145 [facility] Comment on above: Performed By: #### M G, RENAL, URIC #### [facility] [address] [place] [address] Dr. Kelsie Dominguez Urea nitrogen [Mass/Vol] 36.0 mg/dL Critically high 7.0-18.0 [facility] Comment on above: Performed By: #### M G, RENAL, URIC #### [facility] [address] [place] [address] Dr. Kelsie Dominguez UA RANDOM W/MICROSCOPICon BACTERIA SMALL Abnormal NONE SEEN [facility] Comment on above: Performed By: #### V ITAD #### [facility] [address] [place] [address] Dr. Kelsie Dominguez Bilirubin Ql (U) Negative Normal NEGATIVE [facility] Comment on above: Performed By: #### V ITAD #### [facility] [address] [place] [address] Dr. Kelsie Dominguez CAST NONE SEEN Normal NONE SEEN [facility] Comment on above: Performed By: #### V ITAD #### [facility] [address] [place] [address] Dr. Kelsie Dominguez Clarity (U) CLEAR Normal CLEAR The [facility] Comment on above: Performed By: #### V ITAD #### [facility] [address] [place] [address] Dr. Kelsie Dominguez Color (U) LT. YELLOW Normal YELLOW The [facility] Comment on above: Performed By: #### V ITAD #### [facility] [address] [place] [address] Dr. Kelsie Dominguez Crystals LM Nom (Urine sed) NONE SEEN Normal NONE SEEN The [facility] Comment on above: Performed By: #### V ITAD #### [facility] [address] [place] [address] Dr. Kelsie Dominguez Epithelial cells LM Ql (Urine sed) FEW Abnormal NONE SEEN /RARE The [facility] Comment on above: Performed By: #### V ITAD #### [facility] [address] [place] [address] Dr. Kelsie Dominguez Glucose Ql (U) 500 mg/dl Abnormal NEGATIVE The [facility] Comment on above: Performed By: #### V ITAD #### [facility] [address] [place] [address] Dr. Kelsie Dominguez Hemoglobin Ql (U) LARGE Abnormal NEGATIVE [facility] Comment on above: Performed By: #### V ITAD #### [facility] [address] [place] [address] Dr. Kelsie Dominguez Ketones Ql (U) Negative Normal NEGATIVE The [facility] Comment on above: Performed By: #### V ITAD #### [facility] [address] [place] [address] Dr. Kelsie Dominguez LEUKOCYTES SMALL Abnormal NEGATIVE The [facility] Comment on above: Performed By: #### V ITAD #### [facility] [address] [place] [address] Dr. Kelsie Dominguez MUCOUS NONE SEEN Normal NONE SEEN [facility] Comment on above: Performed By: #### V ITAD #### [facility] [address] [place] [address] Dr. Kelsie Dominguez Nitrite Ql (U) Negative Normal NEGATIVE The [facility] Comment on above: Performed By: #### V ITAD #### [facility] [address] [place] [address] Dr. Kelsie Dominguez pH (U) 6.0 [pH] Normal 5-9 The [facility] Comment on above: Performed By: #### V ITAD #### [facility] [address] [place] [address] Dr. Kelsie Dominguez RBC 20-50 Abnormal 0-2 The [facility] Comment on above: Performed By: #### V ITAD #### [facility] [address] [place] [address] Dr. Kelsie Dominguez SPEC GRAVITY 1.020 Normal 1.005-<=1.02 5 [facility] Comment on above: Performed By: #### V ITAD #### [facility] [address] [place] [address] Dr. Kelsie Dominguez UA PROTEIN 30 mg/dl Abnormal NEGATIVE/ TRACE The [facility] Comment on above: Performed By: #### V ITAD #### [facility] [address] [place] [address] Dr. Kelsie Dominguez Urobilinogen Qn (U) 0.2 {Miguel'U}/dL Normal 0.2 - 1. 0 The [facility] Comment on above: Performed By: #### V ITAD #### [facility] [address] [place] [address] Dr. Kelsie Dominguez WBC 20-50 Abnormal NONE SEEN The [facility] Comment on above: Performed By: #### V ITAD #### [facility] [address] [place] [address] Dr. Kelsie Dominguez URIC ACID SERUMon 01-31-2022 Urate [Mass/Vol] 9.4 mg/dL Critically high 2.6-6.0 The [facility] Comment on above: Performed By: #### M G, RENAL, URIC #### [facility] [address] [place] [address] Dr. Kelsie Dominguez URINE T PROTEIN CREAT RATIOo n 01-31-2022 Protein (U) [Mass/Vol] 56.9 mg/dL Critically high <=12.0 The [facility] Comment on above: Performed By: #### H H #### [facility] [address] [place] [address] Dr. Kelsie Dominguez UR PROT CREAT RAT 0.42 Normal [facility] Comment on above: Performed By: #### H H #### [facility] [address] [place] [address] Dr. Kelsie Dominguez URINE CREAT 136.85 mg/dL Normal 20.00-300.00 [facility] Comment on above: Performed By: #### H H #### [facility] [address] [id number] Kelsei Dominguez VITAMIN D 25 OHon 01-31-2022 VIT D 25-OH 32.0 ng/mL Normal [facility] Comment on above: Performed By: #### C LIBERTAD #### [facility] [id number] Kelsie Dominguez VIT D RANGES SEE BELOW Normal [facility] Comment on above: Result Comment: <20 ng/mL Vit D deficient 20 - <30 ng/mL Vit D insufficient 30 - 100 ng/mL Vit D sufficient >100 ng/mL Potential Toxicity Performed By: #### C LIBERTAD #### [facility] [address] [address] [address] Kelsie Dominguez Provider Letter FTon 01-11 Provider Letter [facility] January 11, 2022 RA[address] V[place] [place] [address] RAQUEL VILA 1965 To Whom It May Concern, Please excuse above patient from work 01/10/2022 due to doctor office appointment. . Sincerely, Dr. Nalini Landers MD General Surgery [facility] Ambulatory Visit Summaryon 0 01-10-2022 Ambulatory Visit Summary RAQUEL VILA :1965 Visit Date:01/10/2022 Ambulatory Visit Instructions Your Care Team Attending Physician - SHAHEED ARAIZA, Nalini Segundo Primary Care Physician - Lesly ARAIZA, Lisbeth This Is Your Medications List aspirin (aspirin [...] treatment for. Anticoagulated Left axillary abscess Normal [facility] General Surgery Office/Clini c Noteon 01-10-2022 [...] inactivated - Not Given Patient Refuses Normal [facility] Comment on above: Result Comment: Elec tronically Signed By: SHAHEED ARAIZA, Nalini Feng\Date and Time Signed: 01/10/22 17:59 EDT Pathology Noteon 01-04-2022 Pathology Note [id number]# 1.00CD:127 Normal [facility] Operative Reporton Operative Report [id number]#1 .00CD:127 Normal [facility] Consultation Noteon 12-27-19 Consultation Note [id number]#1 .00CD:127 Normal [facility] SARS-CoV-2 (COVID-19) RNA NA A+probe Ql (Resp)on 12-06-2021 SARS-CoV-2 (COVID-19) RNA SUZANNA+probe Ql (Unsp spec) Positive [employer] Other Physician Referralon 022 Physician Referral [id number] .00CD:127 Normal [facility] Lab Reportson 12-01-2021 Lab Reports [id number]#1 .00CD:127 Normal [facility] BASIC METABOLIC PANELon Calcium [Mass/Vol] 8.7 mg/dL Normal 8.6-10.3 [facility] Comment on above: Order Comment: No: D o not add to previous draw Performed By: #### 8 4511 #### [facility] [address] [facility] [place] [address], [facility] Chloride [Moles/Vol] 104 mmol/L Normal 98-107 [facility] Comment on above: Order Comment: No: D o not add to previous draw Performed By: #### 8 4511 #### [facility] [address] [facility] [place] [address], [place] CO2 [Moles/Vol] 27 mmol/L Normal 21-31 [facility] Comment on above: Order Comment: No: D o not add to previous draw Performed By: #### 8 4511 #### [facility] [address] [place] [address], [facility] Creatinine [Mass/Vol] 0.85 mg/dL Normal 0.60-1.20 [facility] Comment on above: Order Comment: No: D o not add to previous draw Performed By: #### 8 4511 #### [facility] [address] [place] [address], [place] GFR/1.73 sq M.predicted among non-blacks MDRD (S/P/Bld) [Vol rate/Area] mL/min/{1.73_m2} Normal >60 [facility] Comment on above: Order Comment: No: D o not add to previous draw Result Comment: [facility]'s estimated glomerular filtration rate (eGFR) will no [...] individuals. Performed By: #### 8 4511 #### [facility] [address] [facility] [place] [place] [address], [facility] Glucose [Mass/Vol] 150 mg/dL High 70-100 The [facility] Comment on above: Order Comment: No: D o not add to previous draw Performed By: #### 8 4511 #### [facility] [address] [place] [address], [place] Potassium [Moles/Vol] 4.3 mmol/L Normal 3.5-5.1 [facility] Comment on above: Order Comment: No: D o not add to previous draw Performed By: #### 8 4511 #### [facility] [address] [place] [address], [place] Sodium [Moles/Vol] 139 mmol/L Normal 136-145 [facility] Comment on above: Order Comment: No: D o not add to previous draw Performed By: #### 8 4511 #### [facility] [address] [place] [address], [facility] Urea nitrogen [Mass/Vol] 11 mg/dL Normal 7-25 [facility] Comment on above: Order Comment: No: D o not add to previous draw Performed By: #### 8 4511 #### [facility] [address] [place] [address], [facility] POC GLUCOSE LABon 11-24-2021 Glucose [Mass/Vol] 176 mg/dL High 70-100 [facility] Comment on above: Performed By: #### 8 5499 #### [facility] [address] [place] [address], [place] Glucose [Mass/Vol] 141 mg/dL High 70-100 [facility] Comment on above: Performed By: #### 8 5499 #### [facility] [address] [place] [address], [place] Glucose [Mass/Vol] 147 mg/dL High 70-100 [facility] Comment on above: Performed By: #### 8 5499 #### [facility] [address] [facility] [place] [address], [facility] BASIC METABOLIC PANELon 08-0 Calcium [Mass/Vol] 8.2 mg/dL Low 8.6-10.3 [facility] Comment on above: Order Comment: RESUL TS CHECKED AND CALLED. ACCURATELY READ BACK BY Jina TAVAREZ ED, RN Performed By: #### 8 4511 #### [facility] [address] [place] [address], [facility] Chloride [Moles/Vol] 106 mmol/L Normal 98-107 [facility] Comment on above: Order Comment: RESUL TS CHECKED AND CALLED. ACCURATELY READ BACK BY Jina TAVAREZ ED RN Performed By: #### 8 4511 #### [facility] [address] [place] [address], [facility] CO2 [Moles/Vol] 29 mmol/L Normal 21-31 The [facility] Comment on above: Order Comment: RESUL TS CHECKED AND CALLED. ACCURATELY READ BACK BY Jina TAVAREZ ED, RN Performed By: #### 8 4511 #### [facility] [address] [place] [address], [facility] Creatinine [Mass/Vol] 1.04 mg/dL Normal 0.60-1.20 [facility] Comment on above: Order Comment: RESUL TS CHECKED AND CALLED. ACCURATELY READ BACK BY Jina TAVAREZ ED RN Performed By: #### 8 4511 #### [facility] [address] [facility] [place] [address], [facility] GFR/1.73 sq M.predicted among non-blacks MDRD (S/P/Bld) [Vol rate/Area] mL/min/{1.73_m2} Normal >60 [facility] Comment on above: Order Comment: RESUL TS CHECKED AND CALLED. ACCURATELY READ BACK BY Jina TAVAREZ ED, RN Result Comment: The [facility]'s estimated glomerular filtration rate (eGFR) will no [...] individuals. Performed By: #### 8 4511 #### [facility] [address] [facility] [place] [address], [facility] Glucose [Mass/Vol] 124 mg/dL High 70-100 [facility] Comment on above: Order Comment: RESUL TS CHECKED AND CALLED. ACCURATELY READ BACK BY Jina TAVAREZ ED, RN Performed By: #### 8 4511 #### [facility] [address] Potassium [Moles/Vol] 3.3 mmol/L Low 3.5-5.1 [facility] Comment on above: Order Comment: RESUL TS CHECKED AND CALLED. ACCURATELY READ BACK BY Jina TAVAREZ ED RN Performed By: #### 8 4511 #### [facility] [address] Sodium [Moles/Vol] 145 mmol/L Normal 136-145 [facility] Comment on above: Order Comment: RESUL TS CHECKED AND CALLED. ACCURATELY READ BACK BY Jina TAVAREZ ED RN Performed By: #### 8 4511 #### [facility] [address] Urea nitrogen [Mass/Vol] 15 mg/dL Normal 7-25 [facility] Comment on above: Order Comment: RESUL TS CHECKED AND CALLED. ACCURATELY READ BACK BY Jina TAVAREZ ED RN Performed By: #### 8 4511 #### [facility] [address] [place] [address], [facility] CBC W/DIFFon 11-23-2021 ABS IMM GRANS 0.0 10*3/uL Normal 0.0-0.2 The [facility] Comment on above: Order Comment: No: D o not add to previous draw Performed By: #### 8 4511 #### [facility] [address] ABS NEUTROPHILS 4.5 10*3/uL Normal 1.6-7.6 [facility] Comment on above: Order Comment: No: D o not add to previous draw Performed By: #### 8 4511 #### [facility] [address] [place] [address], [facility] Basophils (Bld) [#/Vol] 0.0 10*3/uL Normal 0.0-0.2 [facility] Comment on above: Order Comment: No: D o not add to previous draw Performed By: #### 8 4511 #### [facility] [address] [place] [address], [facility] Basophils/100 WBC (Bld) 0.6 % Normal 0.0-1.0 [facility] Comment on above: Order Comment: No: D o not add to previous draw Performed By: #### 8 4511 #### [facility] [address] [place] [address], [place] Eosinophils (Bld) [#/Vol] 0.1 10*3/uL Normal 0.0-0.5 [facility] Comment on above: Order Comment: No: D o not add to previous draw Performed By: #### 8 4511 #### [facility] [address] [place] [address], [facility] Eosinophils/100 WBC (Bld) 1.7 % Normal 0.0-6.0 [facility] Comment on above: Order Comment: No: D o not add to previous draw Performed By: #### 8 4511 #### [facility] [address] [place] [address], [facility] Erythrocyte distribution width (RBC) [Ratio] 14.4 % Normal 11.5-15.0 [facility] Comment on above: Order Comment: No: D o not add to previous draw Performed By: #### 8 4511 #### [facility] [address] [place] [address], [facility] Hematocrit (Bld) [Volume fraction] 32.1 % Low 36.0-45.0 [facility] Comment on above: Order Comment: No: D o not add to previous draw Performed By: #### 8 4511 #### [facility] [address] [place] [address], [facility] Hemoglobin (Bld) [Mass/Vol] 10.5 g/dL Low 12.0-15.0 [facility] Comment on above: Order Comment: No: D o not add to previous draw Performed By: #### 8 4511 #### [facility] [address] [place] [address], [facility] IMMATURE GRANS 0.5 % Normal 0.0-1.0 [facility] Comment on above: Order Comment: No: D o not add to previous draw Performed By: #### 8 4511 #### [facility] [address] [place] [address], [facility] Lymphocytes (Bld) [#/Vol] 1.1 10*3/uL Low 1.2-4.0 [facility] Comment on above: Order Comment: No: D o not add to previous draw Performed By: #### 8 4511 #### [facility] [address] [place] [address], [facility] Lymphocytes/100 WBC (Bld) 17.4 % Low 20.0-45.0 [facility] Comment on above: Order Comment: No: D o not add to previous draw Performed By: #### 8 4511 #### [facility] [address] [facility] [place] [address], [facility] MCH (RBC) [Entitic mass] 31.8 pg Normal 27.0-33.0 [facility] Comment on above: Order Comment: No: D o not add to previous draw Performed By: #### 8 4511 #### [facility] [address] [facility] [place] [address], [facility] MCHC (RBC) [Mass/Vol] 32.7 g/dL Normal 32.0-35.0 [facility] Comment on above: Order Comment: No: D o not add to previous draw Performed By: #### 8 4511 #### [facility] [address] [place] [id number], [facility] MCV (RBC) [Entitic vol] 97.3 fL Normal 82.0-98.0 [facility] Comment on above: Order Comment: No: D o not add to previous draw Performed By: #### 8 4511 #### [facility] [address] [place] [address], [facility] Monocytes (Bld) [#/Vol] 0.7 10*3/uL Normal 0.1-1.0 [facility] Comment on above: Order Comment: No: D o not add to previous draw Performed By: #### 8 4511 #### [facility] [address] [place] [address], [place] MONOS 10.5 % Normal 5.0-12.0 [facility] Comment on above: Order Comment: No: D o not add to previous draw Performed By: #### 8 4511 #### [facility] [address] [place] [address], [facility] Neutrophils/100 WBC (Bld) 69.3 % Normal 40.0-72.0 [facility] Comment on above: Order Comment: No: D o not add to previous draw Performed By: #### 8 4511 #### [facility] [address] [place] [address], [facility] Nucleated RBC/100 WBC (Bld) [Ratio] 0 % Normal 0-0 [facility] Comment on above: Order Comment: No: D o not add to previous draw Performed By: #### 8 4511 #### [facility] [address] [place] [address], [place] PLAT CNT 146 10*3/uL Low 150-400 The [facility] Comment on above: Order Comment: No: D o not add to previous draw Performed By: #### 8 4511 #### [facility] [address] [place] [address], [facility] RBC (Bld) [#/Vol] 3.30 10*6/uL Low 3.80-5.00 The [facility] Comment on above: Order Comment: No: D o not add to previous draw Performed By: #### 8 4511 #### [facility] [address] [place] [address], [place] WBC (Bld) [#/Vol] 6.48 10*3/uL Normal 4.00-10.60 The [facility] Comment on above: Order Comment: No: D o not add to previous draw Performed By: #### 8 4511 #### [facility] [address] [place] [address], [place] MAGNESIUM BLOODon 11-23-2021 Magnesium [Mass/Vol] 1.8 mg/dL Low 1.9-2.7 [facility] Comment on above: Order Comment: RESUL TS CHECKED AND CALLED. ACCURATELY READ BACK BY Jina TAVAREZ ED, RN Performed By: #### 8 4511 #### [facility] [address] [place] [address], [place] POC GLUCOSE LABon 11-23-2021 Glucose [Mass/Vol] 175 mg/dL High 70-100 The [facility] Comment on above: Performed By: #### 8 5499 ####[facility] [place] [address], [place] Glucose [Mass/Vol] 148 mg/dL High 70-100 [facility] Comment on above: Performed By: #### 8 4511 #### [facility] [address] [place] [address], [place] Glucose [Mass/Vol] 115 mg/dL High 70-100 [facility] Comment on above: Performed By: #### 8 5499 #### [facility] [address] [place] [address], [place] Glucose [Mass/Vol] 123 mg/dL High 70-100 [facility] Comment on above: Performed By: #### 8 5499 #### [facility] [address] [place] [address], [place] PORTABLE CHEST 1 VIEWon PORTABLE CHEST [address] [facility] Department of Radiology [address] [place] [address] Patient Name: RAQUEL VILA : 1965 Sex: F Age: Race: White Pt. Location: [place] [address] Patient Status: I Ordered Date: 11/23/2021 12:10:00 [...] process Electronically signed: Maggie Lynne. Transcribed by: [email or web address], User Resident: Electronically Signed by: MAGGIE LYNNE @ 11/23/2021 01:05 PM Normal [facility] Comment on above: Order Comment: Atele ctasis ARTERIAL BLOOD GAS WITH ICAo n 11-22-2021 BASE EXCESS 2 mmol/L Normal -2-3 The [facility] Comment on above: Performed By: #### 8 4511 #### [facility] [address] [place] [address], [place] DELIVERY SYSTEMS VENTILATOR Normal [facility] Comment on above: Performed By: #### 8 4511 #### [facility] [address] [place] [address], [place] FIO2 40 % Normal [facility] Comment on above: Performed By: #### 8 4511 #### [facility] [address] [place] [address], [place] HCO3 (Bld) [Moles/Vol] 27 mmol/L Normal 21-28 [facility] Comment on above: Performed By: #### 8 4511 #### [facility] [address] [place] [address], [place] IONIZED CALCIUM 1.16 mmol/L Normal 1.13-1.32 [facility] Comment on above: Performed By: #### 8 4511 #### [facility] [address] [place] [address], [place] MIN VOLUME 8.1 Normal [facility] Comment on above: Performed By: #### 8 4511 #### [facility] [address] [place] [address], [place] MODALITY AC-ASSIST CONTROL Normal [facility] Comment on above: Performed By: #### 8 4511 #### [facility] [address] [place] [address], [place] Oxygen (Bld) [Partial pressure] 85 mm[Hg] Normal 83-108 [facility] Comment on above: Performed By: #### 8 4511 #### [facility] [address] [place] [address], [place] Oxygen saturation in Blood 97.0 % Normal 94.0-97.0 [facility] Comment on above: Performed By: #### 8 4511 #### [facility] [address] [place] [address], [place] PCO2 40 mmHg Normal 35-45 [facility] Comment on above: Performed By: #### 8 4511 #### [facility] [address] [place] [address], [place] PEEP 8.0 CMH20 Normal [facility] Comment on above: Performed By: #### 8 4511 #### [facility] [address] [place] [address], [place] PF RATIO 215 mmHg Normal [facility] Comment on above: Performed By: #### 8 4511 #### [facility] [address] [place] [address], [place] pH (Bld) 7.43 [pH] Normal 7.35-7.45 [facility] Comment on above: Performed By: #### 8 4511 #### [facility] [address] [place] [address], [place] Respiratory rate 18 /min Normal [facility] Comment on above: Performed By: #### 8 4511 #### [facility] [address] [place] [address], [place] TIDAL VOLUME (VT) CC 450 Normal [facility] Comment on above: Performed By: #### 8 4511 #### [facility] [address] [place] [address], [place] CBC COMPLETE BLOOD COUNTon 0 - Erythrocyte distribution width (RBC) [Ratio] 14.6 % Normal 11.5-15.0 [facility] Comment on above: Order Comment: No: D o not add to previous draw Performed By: #### 8 4511 #### [facility] [address] [place] [address], [place] Hematocrit (Bld) [Volume fraction] 32.0 % Low 36.0-45.0 [facility] Comment on above: Order Comment: No: D o not add to previous draw Performed By: #### 8 4511 #### [facility] [address] [place] [address], [facility] Hemoglobin (Bld) [Mass/Vol] 10.6 g/dL Low 12.0-15.0 [facility] Comment on above: Order Comment: No: D o not add to previous draw Performed By: #### 8 4511 #### [facility] [address] [place] [address], [facility] MCH (RBC) [Entitic mass] 31.6 pg Normal 27.0-33.0 [facility] Comment on above: Order Comment: No: D o not add to previous draw Performed By: #### 8 4511 #### [facility] [address] [place] [address], [facility] MCHC (RBC) [Mass/Vol] 33.1 g/dL Normal 32.0-35.0 [facility] Comment on above: Order Comment: No: D o not add to previous draw Performed By: #### 8 4511 #### [facility] [address] [place] [id number], [facility] MCV (RBC) [Entitic vol] 95.5 fL Normal 82.0-98.0 [facility] Comment on above: Order Comment: No: D o not add to previous draw Performed By: #### 8 4511 #### [facility] [address] [place] [address], [facility] Nucleated RBC/100 WBC (Bld) [Ratio] 0 % Normal 0-0 [facility] Comment on above: Order Comment: No: D o not add to previous draw Performed By: #### 8 4511 #### [facility] [address] [place] [address], [place] PLAT CNT 147 10*3/uL Low 150-400 [facility] Comment on above: Order Comment: No: D o not add to previous draw Performed By: #### 8 4511 #### [facility] [address] [place] [address], [facility] RBC (Bld) [#/Vol] 3.35 10*6/uL Low 3.80-5.00 [facility] Comment on above: Order Comment: No: D o not add to previous draw Performed By: #### 8 4511 #### [facility] [address] [place] [address], [facility] WBC (Bld) [#/Vol] 7.77 10*3/uL Normal 4.00-10.60 [facility] Comment on above: Order Comment: No: D o not add to previous draw Performed By: #### 8 4511 #### [facility] [address] [place] [address], [facility] COMP METABOLIC PANELon 11-22 Albumin [Mass/Vol] 3.4 g/dL Low 3.5-5.7 [facility] Comment on above: Order Comment: No: D o not add to previous draw Performed By: #### 8 4511 #### [facility] [address] [place] [address], [facility] ALKALINE PHOSPH 134 IU/L High 34-104 [facility] Comment on above: Order Comment: No: D o not add to previous draw Performed By: #### 8 4511 #### [facility] [address] [place] [address], [facility] ALT [Catalytic activity/Vol] 400 U/L Critically high 7-52 [facility] Comment on above: Order Comment: No: D o not add to previous draw Performed By: #### 8 4511 #### [facility] [address] [place] [address], [facility] AST [Catalytic activity/Vol] 306 U/L High 13-39 [facility] Comment on above: Order Comment: No: D o not add to previous draw Performed By: #### 8 4511 #### [facility] [address] [place] [address], [place] Bilirubin [Mass/Vol] 0.4 mg/dL Normal 0.3-1.0 [facility] Comment on above: Order Comment: No: D o not add to previous draw Performed By: #### 8 4511 #### [facility] [address] [place] [address], [place] Calcium [Mass/Vol] 8.4 mg/dL Low 8.6-10.3 [facility] Comment on above: Order Comment: No: D o not add to previous draw Performed By: #### 8 4511 #### [facility] [address] [place] [address], [place] Chloride [Moles/Vol] 109 mmol/L High 98-107 [facility] Comment on above: Order Comment: No: D o not add to previous draw Performed By: #### 8 4511 #### [facility] [address] [place] [address], [place] CO2 [Moles/Vol] 25 mmol/L Normal 21-31 [facility] Comment on above: Order Comment: No: D o not add to previous draw Performed By: #### 8 4511 #### [facility] [address] [place] [address], [place] Creatinine [Mass/Vol] 1.34 mg/dL High 0.60-1.20 [facility] Comment on above: Order Comment: No: D o not add to previous draw Performed By: #### 8 4511 #### [facility] [address] [place] [address], [place] EGFR 47 ml/min/1.73sq m Abnormal >60 [facility] Comment on above: Order Comment: No: D o not add to previous draw Result Comment: [facility]'s estimated glomerular filtration rate (eGFR) will no [...] individuals. Performed By: #### 8 4511 #### [facility] [address] [place] [address], [place] Glucose [Mass/Vol] 100 mg/dL Normal 70-100 [facility] Comment on above: Order Comment: No: D o not add to previous draw Performed By: #### 8 4511 #### [facility] [address] [place] [address], [place] Potassium [Moles/Vol] 3.2 mmol/L Low 3.5-5.1 [facility] Comment on above: Order Comment: No: D o not add to previous draw Performed By: #### 8 4511 #### [facility] [address] [place] [address], [place] Protein [Mass/Vol] 5.5 g/dL Low 6.0-8.3 [facility]: Order Comment: No: D o not add to previous draw Performed By: #### 8 4511 #### [facility] [address] [place] [address], [place] Sodium [Moles/Vol] 144 mmol/L Normal 136-145 [facility] Comment on above: Order Comment: No: D o not add to previous draw Performed By: #### 8 4511 #### [facility] [address] [place] [address], [place] Urea nitrogen [Mass/Vol] 21 mg/dL Normal 7-25 [facility] Comment on above: Order Comment: No: D o not add to previous draw Performed By: #### 8 4511 #### [facility] [address] [place] [address], [facility] MAGNESIUM BLOODon 11-22-2021 Magnesium [Mass/Vol] 1.9 mg/dL Normal 1.9-2.7 [facility] Comment on above: Order Comment: No: D o not add to previous draw Performed By: #### 8 4511 #### [facility] [address] [place] [address], [facility] PHOSPHORUS BLOODon Phosphate [Mass/Vol] 3.3 mg/dL Normal 2.5-5.0 [facility] Comment on above: Order Comment: No: D o not add to previous draw Performed By: #### 8 4511 #### [facility] [address] [place] [address], [facility] POC GLUCOSE LABon 11-22-2021 Glucose [Mass/Vol] 140 mg/dL High 70-100 [facility] Comment on above: Performed By: #### 8 5499 #### [facility] [address] [place] [address], [facility] Glucose [Mass/Vol] 160 mg/dL High 70-100 [facility] Comment on above: Performed By: #### 8 5499 #### [facility] [address] [place] [address], [facility] Glucose [Mass/Vol] 86 mg/dL Normal 70-100 [facility] Comment on above: Performed By: #### 8 4511 #### [facility] [address] [place] [address], [facility] *BLOOD CULTUREon 11-21-2021 *BLOOD CULTURE Clinical Report: (D) Specimen: BLOOD CULTURE Collected: 11/21/2021 00:17 Status: Final Last Updated: 11/26/2021 06:23 CULT RES (Final) No Growth Day 5 Normal [facility] Comment on above: Performed By: #### 8 5499 #### [facility] [address] [place] [address], [facility] Performed By: #### 8 4511 #### [facility] [address] [place] [address], [facility] ARTERIAL BLOOD GAS WITH ICAo n 11-21-2021 BASE EXCESS -1 mmol/L Normal -2-3 [facility] Comment on above: Performed By: #### 8 5499 #### [facility] [address] [place] [address], [facility] DELIVERY SYSTEMS VENTILATOR Normal [facility] Comment on above: Performed By: #### 8 5499 #### [facility] [address] [place] [address], [facility] FIO2 70 % Normal [facility] Comment on above: Performed By: #### 8 5499 #### [facility] [address] [place] [address], [facility] HCO3 (Bld) [Moles/Vol] 24 mmol/L Normal 21-28 [facility] Comment on above: Performed By: #### 8 5499 #### [facility] [address] [place] [address], [facility] IONIZED CALCIUM 1.17 mmol/L Normal 1.13-1.32 [facility] Comment on above: Performed By: #### 8 5499 #### [facility] [address] [place] [address], [place] MIN VOLUME 11.0 Normal [facility] Comment on above: Performed By: #### 8 5499 #### [facility] [address] [place] [address], [place] MODALITY AC VC Normal [facility] Comment on above: Performed By: #### 8 5499 #### [facility] [address] Oxygen (Bld) [Partial pressure] 191 mm[Hg] Critically high 83-108 [facility] Comment on above: Performed By: #### 8 5499 #### [facility] [address] [facility] [place] [address], [facility] Oxygen saturation in Blood 97.8 % High 94.0-97.0 [facility] Comment on above: Performed By: #### 8 5499 #### [facility] [address] [place] [address], [facility] PCO2 39 mmHg Normal 35-45 [facility] Comment on above: Performed By: #### 8 5499 #### [facility] [address] [facility] [place] [address], [facility] PEEP 10.0 CMH20 Normal [facility] Comment on above: Performed By: #### 8 5499 #### [facility] [address] [facility] [place] [address], [facility] pH (Bld) 7.40 [pH] Normal 7.35-7.45 [facility] Comment on above: Performed By: #### 8 5499 #### [facility] [address] [place] [address], [facility] Respiratory rate 24 /min Normal [facility] Comment on above: Performed By: #### 8 5499 #### [facility] [address] TIDAL VOLUME (VT) CC 450 Normal [facility] Comment on above: Performed By: #### 8 5499 #### [facility] [address] [place] [address], [facility] BASIC METABOLIC PANELon 08-0 Calcium [Mass/Vol] 9.3 mg/dL Normal 8.6-10.3 [facility] Comment on above: Order Comment: RESUL TS CHECKED AND CALLED. ACCURATELY READ BACK BY R. DAYSI ED RN Performed By: #### 8 4511 #### [facility] [address] [place] [address], [facility] Chloride [Moles/Vol] 106 mmol/L Normal 98-107 [facility] Comment on above: Order Comment: RESUL TS CHECKED AND CALLED. ACCURATELY READ BACK BY Jina TAVAREZ ED RN Performed By: #### 8 4511 #### [facility] [address] [place] [address], [facility] CO2 [Moles/Vol] 25 mmol/L Normal 21-31 [facility] Comment on above: Order Comment: RESUL TS CHECKED AND CALLED. ACCURATELY READ BACK BY Jina TAVAREZ ED RN Performed By: #### 8 4511 #### [facility] [address] [facility] Creatinine [Mass/Vol] 1.68 mg/dL High 0.60-1.20 [facility] Comment on above: Order Comment: RESUL TS CHECKED AND CALLED. ACCURATELY READ BACK BY Jina TAVAREZ ED RN Performed By: #### 8 4511 #### [facility] [address] EGFR 36 ml/min/1.73sq m Abnormal >60 [facility] Comment on above: Order Comment: RESUL TS CHECKED AND CALLED. ACCURATELY READ BACK BY Jina TAVAREZ ED RN Result Comment: [facility]'s estimated glomerular filtration rate (eGFR) will no [...] individuals. Performed By: #### 8 4511 #### [facility] [address] [place] [address], [facility] Glucose [Mass/Vol] 201 mg/dL High 70-100 [facility] Comment on above: Order Comment: RESUL TS CHECKED AND CALLED. ACCURATELY READ BACK BY Jina TAVAREZ ED RN Performed By: #### 8 4511 #### [facility] [address] [place] [address], [facility] Potassium [Moles/Vol] 3.7 mmol/L Normal 3.5-5.1 [facility] Comment on above: Order Comment: RESUL TS CHECKED AND CALLED. ACCURATELY READ BACK BY Jina TAVAREZ ED RN Performed By: #### 8 4511 #### [facility] [address] [place] [address], [facility] Sodium [Moles/Vol] 141 mmol/L Normal 136-145 [facility] Comment on above: Order Comment: RESUL TS CHECKED AND CALLED. ACCURATELY READ BACK BY Jina TAVAREZ ED RN Performed By: #### 8 4511 #### [facility] [address] [place] [address], [facility] Urea nitrogen [Mass/Vol] 28 mg/dL High 7-25 [facility] Comment on above: Order Comment: RESUL TS CHECKED AND CALLED. ACCURATELY READ BACK BY Jina TAVAREZ ED RN Performed By: #### 8 4511 #### [facility] [address] BETA HYDROXYBUTYRATEon 11-21 BETA HYDROXYBUTYRATE 0.21 mmol/L Normal 0.02-0.27 [facility] Comment on above: Performed By: #### 8 4511 #### [facility] [address] [place] [address], [facility] CBC W/DIFFon 11-21-2021 ABS IMM GRANS 0.1 10*3/uL Normal 0.0-0.2 The [facility] lauren [facility] Comment on above: Order Comment: No: D o not add to previous draw Performed By: #### 8 2471 #### [facility] [address] [place] [address], [facility] ABS NEUTROPHILS 9.5 10*3/uL High 1.6-7.6 [facility] Comment on above: Order Comment: No: D o not add to previous draw Performed By: #### 8 4511 #### [facility] [address] [place] [address], [facility] Basophils (Bld) [#/Vol] 0.0 10*3/uL Normal 0.0-0.2 [facility] Comment on above: Order Comment: No: D o not add to previous draw Performed By: #### 8 4511 #### [facility] [address] [place] [address], [facility] Basophils/100 WBC (Bld) 0.3 % Normal 0.0-1.0 [facility] Comment on above: Order Comment: No: D o not add to previous draw Performed By: #### 8 4511 #### [facility] [address] [facility] [place] [place] [address], [facility] Eosinophils (Bld) [#/Vol] 0.0 10*3/uL Normal 0.0-0.5 [facility] Comment on above: Order Comment: No: D o not add to previous draw Performed By: #### 8 4511 #### [facility] [address] [facility] [place] [id number], [facility] Eosinophils/100 WBC (Bld) 0.0 % Normal 0.0-6.0 [facility] Comment on above: Order Comment: No: D o not add to previous draw Performed By: #### 8 4511 #### [facility] [address] [facility] [place] [address], [facility] Erythrocyte distribution width (RBC) [Ratio] 14.3 % Normal 11.5-15.0 [facility] Comment on above: Order Comment: No: D o not add to previous draw Performed By: #### 8 4511 #### [facility] [address] [place] [address], [facility] Hematocrit (Bld) [Volume fraction] 38.8 % Normal 36.0-45.0 [facility] Comment on above: Order Comment: No: D o not add to previous draw Performed By: #### 8 4511 #### [facility] [address] [place] [address], [facility] Hemoglobin (Bld) [Mass/Vol] 13.0 g/dL Normal 12.0-15.0 [facility] Comment on above: Order Comment: No: D o not add to previous draw Performed By: #### 8 4511 #### [facility] [address] [facility] [place] [address], [facility] IMMATURE GRANS 1.1 % High 0.0-1.0 The [facility] Comment on above: Order Comment: No: D o not add to previous draw Performed By: #### 8 4511 #### [facility] [address] [facility] [place] [address], [facility] Lymphocytes (Bld) [#/Vol] 0.9 10*3/uL Low 1.2-4.0 [facility] Comment on above: Order Comment: No: D o not add to previous draw Performed By: #### 8 4511 #### [facility] [address] [facility] [place] [address], [facility] Lymphocytes/100 WBC (Bld) 8.2 % Low 20.0-45.0 [facility] Comment on above: Order Comment: No: D o not add to previous draw Performed By: #### 8 4511 #### [facility] [address] [facility] [place] [id number], [facility] MCH (RBC) [Entitic mass] 31.3 pg Normal 27.0-33.0 [facility] Comment on above: Order Comment: No: D o not add to previous draw Performed By: #### 8 4511 #### [facility] [address] [place] [address], [facility] MCHC (RBC) [Mass/Vol] 33.5 g/dL Normal 32.0-35.0 [facility] Comment on above: Order Comment: No: D o not add to previous draw Performed By: #### 8 4511 #### [facility] [address] [place] [address], [facility] MCV (RBC) [Entitic vol] 93.3 fL Normal 82.0-98.0 [facility] Comment on above: Order Comment: No: D o not add to previous draw Performed By: #### 8 4511 #### [facility] [address] [place] [address], [facility] Monocytes (Bld) [#/Vol] 1.0 10*3/uL Normal 0.1-1.0 [facility] Comment on above: Order Comment: No: D o not add to previous draw Performed By: #### 8 4511 #### [facility] [address] [place] [address], [facility] MONOS 8.3 % Normal 5.0-12.0 [facility] Comment on above: Order Comment: No: D o not add to previous draw Performed By: #### 8 4511 #### [facility] [address] [place] [id number], [facility] Neutrophils/100 WBC (Bld) 82.1 % High 40.0-72.0 [facility] Comment on above: Order Comment: No: D o not add to previous draw Performed By: #### 8 4511 #### [facility] [address] [place] [id number], [facility] Nucleated RBC/100 WBC (Bld) [Ratio] 0 % Normal 0-0 [facility] Comment on above: Order Comment: No: D o not add to previous draw Performed By: #### 8 4511 #### [facility] [address] [place] [address], [facility] PLAT CNT 176 10*3/uL Normal 150-400 The [facility] Comment on above: Order Comment: No: D o not add to previous draw Performed By: #### 8 4511 #### [facility] [address] [place] [address], [facility] RBC (Bld) [#/Vol] 4.16 10*6/uL Normal 3.80-5.00 The [facility] Comment on above: Order Comment: No: D o not add to previous draw Performed By: #### 8 4511 #### [facility] [address] [facility] [place] [address], [facility] WBC (Bld) [#/Vol] 11.53 10*3/uL High 4.00-10.60 [facility] Comment on above: Order Comment: No: D o not add to previous draw Performed By: #### 8 4511 #### [facility] [address] [facility] [place] [address], [facility] ABS IMM GRANS 0.2 10*3/uL Normal 0.0-0.2 The [facility] Comment on above: Order Comment: Yes: Add to Previous draw if able Performed By: #### 8 5499 #### [facility] [address] [facility] [place] [address], [facility] ABS NEUTROPHILS 12.0 10*3/uL High 1.6-7.6 The [facility] Comment on above: Order Comment: Yes: Add to Previous draw if able Performed By: #### 8 5499 #### [facility] [address] [facility] [place] [address], [facility] Basophils (Bld) [#/Vol] 0.0 10*3/uL Normal 0.0-0.2 [facility] Comment on above: Order Comment: Yes: Add to Previous draw if able Performed By: #### 8 5499 #### [facility] [address] [place] [address], [facility] Basophils/100 WBC (Bld) 0.2 % Normal 0.0-1.0 [facility] Comment on above: Order Comment: Yes: Add to Previous draw if able Performed By: #### 8 5499 #### [facility] [address] [place] [address], [facility] Eosinophils (Bld) [#/Vol] 0.0 10*3/uL Normal 0.0-0.5 [facility] Comment on above: Order Comment: Yes: Add to Previous draw if able Performed By: #### 8 5499 #### [facility] [address] [place] [address], [facility] Eosinophils/100 WBC (Bld) 0.1 % Normal 0.0-6.0 [facility] Comment on above: Order Comment: Yes: Add to Previous draw if able Performed By: #### 8 5499 #### [facility] [address] [place] [id number], [facility] Erythrocyte distribution width (RBC) [Ratio] 14.5 % Normal 11.5-15.0 [facility] Comment on above: Order Comment: Yes: Add to Previous draw if able Performed By: #### 8 5499 #### [facility] [address] [place] [id number], [facility] Hematocrit (Bld) [Volume fraction] 40.6 % Normal 36.0-45.0 [facility] Comment on above: Order Comment: Yes: Add to Previous draw if able Performed By: #### 8 5499 #### [facility] [address] [place] [id number], [facility] Hemoglobin (Bld) [Mass/Vol] 13.3 g/dL Normal 12.0-15.0 [facility] Comment on above: Order Comment: Yes: Add to Previous draw if able Performed By: #### 8 5499 #### [facility] [address] [place] [id number], [place] IMMATURE GRANS 1.7 % High 0.0-1.0 The [facility] Comment on above: Order Comment: Yes: Add to Previous draw if able Performed By: #### 8 5499 #### [facility] [address] [place] [address], [facility] Lymphocytes (Bld) [#/Vol] 0.6 10*3/uL Low 1.2-4.0 [facility] Comment on above: Order Comment: Yes: Add to Previous draw if able Performed By: #### 8 5499 #### [facility] [address] [place] [address], [facility] Lymphocytes/100 WBC (Bld) 4.2 % Low 20.0-45.0 [facility] Comment on above: Order Comment: Yes: Add to Previous draw if able Performed By: #### 8 5499 #### [facility] [address] [place] [address], [facility] MCH (RBC) [Entitic mass] 31.4 pg Normal 27.0-33.0 [facility] Comment on above: Order Comment: Yes: Add to Previous draw if able Performed By: #### 8 5499 #### [facility] [address] [place] [address], [facility] MCHC (RBC) [Mass/Vol] 32.8 g/dL Normal 32.0-35.0 [facility] Comment on above: Order Comment: Yes: Add to Previous draw if able Performed By: #### 8 5499 #### [facility] [address] [place] [address], [facility] MCV (RBC) [Entitic vol] 95.8 fL Normal 82.0-98.0 The [facility] Comment on above: Order Comment: Yes: Add to Previous draw if able Performed By: #### 8 [id number] #### [facility] [address] [place] [address], [facility] Monocytes (Bld) [#/Vol] 0.8 10*3/uL Normal 0.1-1.0 [facility] Comment on above: Order Comment: Yes: Add to Previous draw if able Performed By: #### 8 [id number] #### [facility] [address] [place] [address], [facility] MONOS 5.8 % Normal 5.0-12.0 [facility] Comment on above: Order Comment: Yes: Add to Previous draw if able Performed By: #### 8 [id number] #### [facility] [address] [place] [address], [facility] Neutrophils/100 WBC (Bld) 88.0 % High 40.0-72.0 [facility] Comment on above: Order Comment: Yes: Add to Previous draw if able Performed By: #### 8 [id number] #### [facility] [address] [place] [id number], [facility] Nucleated RBC/100 WBC (Bld) [Ratio] 0 % Normal 0-0 [facility] Comment on above: Order Comment: Yes: Add to Previous draw if able Performed By: #### 8 [id number] #### [facility] [address] [place] [address], [facility] PLAT CNT 163 10*3/uL Normal 150-400 The [facility] Comment on above: Order Comment: Yes: Add to Previous draw if able Performed By: #### 8 [id number] #### [facility] [address] [place] [id number], [place] RBC (Bld) [#/Vol] 4.24 10*6/uL Normal 3.80-5.00 The [facility] Comment on above: Order Comment: Yes: Add to Previous draw if able Performed By: #### 8 [id number] #### [facility] [address] [place] [address], [place] WBC (Bld) [#/Vol] 13.68 10*3/uL High 4.00-10.60 [facility] Comment on above: Order Comment: Yes: Add to Previous draw if able Performed By: #### 8 [id number] #### [facility] [address] [place] [address], [facility] COMP METABOLIC PANELon 11-21 Albumin [Mass/Vol] 4.1 g/dL Normal 3.5-5.7 [facility] above: Performed By: #### 8 4511 #### [facility] [address] [place] [address], [facility] ALKALINE PHOSPH 196 IU/L High 34-104 The [facility] Comment on above: Performed By: #### 8 4511 #### [facility] [address] [place] [address], [place] ALT [Catalytic activity/Vol] 560 U/L Critically high 7-52 [facility] Comment on above: Performed By: #### 8 4511 #### [facility] [address] [place] [address], [place] AST [Catalytic activity/Vol] 852 U/L High 13-39 [facility] Comment on above: Performed By: #### 8 4511 #### [facility] [address] [place] [address], [place] Bilirubin [Mass/Vol] 0.9 mg/dL Normal 0.3-1.0 [facility] Comment on above: Performed By: #### 8 4511 #### [facility] [address] [place] [address], [place] Calcium [Mass/Vol] 8.9 mg/dL Normal 8.6-10.3 The [facility] Comment on above: Performed By: #### 8 4511 #### [facility] [address] [place] [address], [place] Chloride [Moles/Vol] 101 mmol/L Normal 98-107 [facility] Comment on above: Performed By: #### 8 4511 #### [facility] [address] [place] [address], [place] CO2 [Moles/Vol] 22 mmol/L Normal 21-31 [facility] Comment on above: Performed By: #### 8 4511 #### [facility] [address] [place] [address], [place] Creatinine [Mass/Vol] 1.90 mg/dL High 0.60-1.20 [facility] Comment on above: Performed By: #### 8 4511 #### [facility] [address] [place] [address], [place] EGFR 31 ml/min/1.73sq m Abnormal >60 The [facility] Comment on above: Result Comment: [facility]'s estimated glomerular filtration rate (eGFR) will no [...] individuals. Performed By: #### 8 4511 #### [facility] [address] [place] [address], [place] Glucose [Mass/Vol] 436 mg/dL High 70-100 The [facility] Comment on above: Performed By: #### 8 4511 #### [facility] [address] [place] [address], [place] Potassium [Moles/Vol] 4.4 mmol/L Normal 3.5-5.1 [facility] Comment on above: Performed By: #### 8 4511 #### [facility] [address] [place] [address], [place] Protein [Mass/Vol] 6.9 g/dL Normal 6.0-8.3 The [facility] Comment on above: Performed By: #### 8 4511 #### [id number] [place] [address] Sodium [Moles/Vol] 136 mmol/L Normal 136-145 The [facility] Comment on above: Performed By: #### 8 4511 #### [facility] [address] Urea nitrogen [Mass/Vol] 30 mg/dL High 7-25 [facility] Comment on above: Performed By: #### 8 4511 #### [address] BRAIN WO CONTRASTon 11-21 CT BRAIN WO CONTRAST [facility] Department of Radiology [address] [place] [id number] Patient Name: RAQUEL VILA : 1965 Sex: F Age: Race: White Pt. Location: [place] [address] Patient Status: I Ordered Date: 11/20/2021 10:30:00 [...] Electronically signed: Aziza Funes M.D.. Transcribed by: [email or web address], User Resident: Electronically Signed by: AZIZA FUNES @ 11/20/2021 11:03 PM Normal [facility] Comment on above: Order Comment: Other ELECTROLYTE PANELon 11-22-19 22 CARBON DIOXIDE CANCELED Normal 21-31 The [facility] Comment on above: Result Comment: The released value 23 was canceled by [email or web address] on 11/21/2021 02:22 Performed By: #### 8 4511 #### [facility] [address] [place] [address], [facility] CHLORIDE CANCELED Normal 98-107 [facility] Comment on above: Result Comment: The released value 101 was canceled by [email or web address] on 11/21/2021 02:22 Performed By: #### 8 4511 #### [facility] [address] [place] [address], [place] POTASSIUM CANCELED Normal 3.5-5.1 [facility] Comment on above: Result Comment: The released value 4.4 was canceled by [email or web address] on 11/21/2021 02:22 Performed By: #### 8 4511 #### [facility] [address] [place] [address], [facility] SODIUM CANCELED Normal 136-145 [facility] Comment on above: Result Comment: The released value 135 was canceled by NENA on 11/21/2021 02:22 Performed By: #### 8 4511 #### [facility] [address] [place] [address], [place] LACTATE BLOODon 11-21-2021 Lactate [Moles/Vol] 2.1 mmol/L Normal .5-2.2 [facility] Comment on above: Order Comment: No: D o not add to previous draw Performed By: #### 8 4511 #### [facility] [address] [place] [address], [facility] Lactate [Moles/Vol] 2.1 mmol/L Normal .5-2.2 The [facility] Comment on above: Order Comment: RESUL TS CHECKED AND CALLED. ACCURATELY READ BACK BY Jina TAVAREZ ED, RN Performed By: #### 8 4511 #### [facility] [address] [place] [address], [facility] MAGNESIUM BLOODon 11-21-2021 Magnesium [Mass/Vol] 2.0 mg/dL Normal 1.9-2.7 [facility] Comment on above: Order Comment: RESUL TS CHECKED AND CALLED. ACCURATELY READ BACK BY Jina TAVAREZ ED, RN Performed By: #### 8 4511 #### [facility] [address] [place] [address], [place] OSMOLALITY BLOODon 2 Osmolality [Osmolality] 319 mosm/kg High 285-305 [facility] Comment on above: Order Comment: No: D o not add to previous draw Performed By: #### 8 4511 #### [facility] [address] [place] [address], [place] PHOSPHORUS BLOODon 2 Phosphate [Mass/Vol] 3.1 mg/dL Normal 2.5-5.0 [facility] Comment on above: Order Comment: RESUL TS CHECKED AND CALLED. ACCURATELY READ BACK BY Jina TAVAREZ ED, RN Performed By: #### 8 4511 #### [facility] [address] [place] [address], [place] POC GLUCOSE LABon 11-21-2021 Glucose [Mass/Vol] 150 mg/dL High 70-100 [facility] on above: Performed By: #### 8 5499 #### [facility] [address] [place] [address], [place] Glucose [Mass/Vol] 149 mg/dL High 70-100 [facility] Comment on above: Performed By: #### 8 5499 #### [facility] [address] [place] [address], [place] Glucose [Mass/Vol] 178 mg/dL High 70-100 [facility] Comment on above: Performed By: #### 8 4511 #### [facility] [address] [place] [address], [place] Glucose [Mass/Vol] 173 mg/dL High 70-100 [facility] Comment on above: Performed By: #### 8 4511 #### [facility] [address] [place] [address], [place] Glucose [Mass/Vol] 158 mg/dL High 70-100 [facility] Comment on above: Performed By: #### 8 5499 #### [facility] [address] [place] [address], [place] Glucose [Mass/Vol] 165 mg/dL High 70-100 [facility] Comment on above: Performed By: #### 8 4511 #### [facility] [address] [place] [address], [place] Glucose [Mass/Vol] 185 mg/dL High 70-100 The [facility] Comment on above: Performed By: #### 8 5499 #### [facility] [address] [place] [address], [place] Glucose [Mass/Vol] 200 mg/dL High 70-100 [facility] Comment on above: Performed By: #### 8 5499 ####[facility] [place] [address], [place] Glucose [Mass/Vol] 230 mg/dL High 70-100 [facility] Comment on above: Performed By: #### 8 4511 #### [facility] [address] [place] [address], [place] Glucose [Mass/Vol] 265 mg/dL High 70-100 [facility] Comment on above: Performed By: #### 8 5499 #### [facility] [address] [place] [address], [place] Glucose [Mass/Vol] 352 mg/dL High 70-100 [facility] Comment on above: Performed By: #### 8 5499 #### [facility] [address] [place] [address], [place] Glucose [Mass/Vol] 403 mg/dL High 70-100 [facility] Comment on above: Performed By: #### 8 5499 #### [facility] [address] [place] [address], [place] Glucose [Mass/Vol] 502 mg/dL Critically high 70-100 T [facility] Comment on above: Order Comment: NOTE: Critical Value Performed By: #### 8 5499 #### [facility] [address] [place] [address], [place] Glucose [Mass/Vol] 490 mg/dL High 70-100 [facility] Comment on above: Performed By: #### 8 5499 #### [facility] [address] PROCALCITONINon 11-21-2021 PROCALCITONIN 1.17 ng/mL High 0.00-0.10 [facility] Comment on above: Result Comment: Susp ected [...] PCT<0.5ng/mL Performed By: #### 8 4511 #### [facility] [address] [facility]. [address] TRIGLYCERIDES BLOODon 2021 Triglyceride [Mass/Vol] 121 mg/dL Normal 40-149 [facility] Comment on above: Order Comment: RESUL TS CHECKED AND CALLED. ACCURATELY READ BACK BY Jina TAVAREZ ED, RN Result Comment: TRIG LYCERIDE REFERENCE RANGE: 20 YEARS AND OLDER CARDIOVASCULAR RISK LESS THAN 150 mg/dl LOW RISK 150 TO 199 mg/dl BORDERLINE RISK 200 mg/dl AND GREATER HIGH RISK Performed By: #### 8 4515 #### [facility] [address] [place] [address], [facility] ACETONE SERUMon 11-20-2021 ACETONE Negative Normal NEGATIVE The [facility] Comment on above: Performed By: #### V ITAD #### [facility] [address] [place] [address] [address] Kelsie Dominguez ARTERIAL BLOOD GAS WITH ICAo n 11-20-2021 BASE EXCESS -4 mmol/L Low -2-3 The [facility] Comment on above: Order Comment: RESUL TS CHECKED AND CALLED. ACCURATELY READ BACK BY Jina TAVAREZ ED RN Performed By: #### 8 4511 #### [facility] [address] [place] [address], [facility] [employer] VENTILATOR Normal The [facility] Comment on above: Order Comment: RESUL TS CHECKED AND CALLED. ACCURATELY READ BACK BY Jina TAVAREZ ED, RN Performed By: #### 8 4511 #### [facility] [address] [place] [address], [facility] FIO2 100 % Normal [facility] Comment on above: Order Comment: RESUL TS CHECKED AND CALLED. ACCURATELY READ BACK BY Jina TAVAREZ ED, RN Performed By: #### 8 4511 #### [facility] [address] [facility] [place] [address], [facility] HCO3 (Bld) [Moles/Vol] 23 mmol/L Normal 21-28 [facility] Comment on above: Order Comment: RESUL TS CHECKED AND CALLED. ACCURATELY READ BACK BY Jina TAVAREZ ED, RN Performed By: #### 8 4511 #### [facility] [address] [place] [address], [facility] IONIZED CALCIUM 1.13 mmol/L Normal 1.13-1.32 The [facility] Comment on above: Order Comment: RESUL TS CHECKED AND CALLED. ACCURATELY READ BACK BY Jina TAVAREZ ED, RN Performed By: #### 8 4511 #### [facility] [address] [place] [address], [facility] MIN VOLUME 11.0 Normal [facility] Comment on above: Order Comment: RESUL TS CHECKED AND CALLED. ACCURATELY READ BACK BY Jina TAVAREZ ED RN Performed By: #### 8 4511 #### [facility] [address] [facility] [place] [address], [facility] MODALITY AC VC Normal [facility] Comment on above: Order Comment: RESUL TS CHECKED AND CALLED. ACCURATELY READ BACK BY Jina TAVAREZ ED RN Performed By: #### 8 4511 #### [facility] [address] [place] [address], [facility] Oxygen (Bld) [Partial pressure] 68 mm[Hg] Low 83-108 [facility] Comment on above: Order Comment: RESUL TS CHECKED AND CALLED. ACCURATELY READ BACK BY Jina TAVAREZ ED RN Performed By: #### 8 4511 #### [facility] [address] [place], [place] [address] [place] [address] Oxygen saturation in Blood 91.7 % Low 94.0-97.0 [facility] Comment on above: Order Comment: RESUL TS CHECKED AND CALLED. ACCURATELY READ BACK BY Jina TAVAREZ ED RN Performed By: #### 8 4511 #### [facility] [address] [place] [address], [facility] PCO2 52 mmHg High 35-45 [facility] Comment on above: Order Comment: RESUL TS CHECKED AND CALLED. ACCURATELY READ BACK BY Jina TAVAREZ ED RN Performed By: #### 8 4511 #### [facility] [address] [facility] [place] [address], [facility] PEEP 10.0 CMH20 Normal [facility] Comment on above: Order Comment: RESUL TS CHECKED AND CALLED. ACCURATELY READ BACK BY Jina TAVAREZ ED RN Performed By: #### 8 4511 #### [facility] [address] [facility] [place] [address], [facility] pH (Bld) 7.26 [pH] Low 7.35-7.45 [facility] Comment on above: Order Comment: RESUL TS CHECKED AND CALLED. ACCURATELY READ BACK BY Jina TAVAREZ ED, RN Performed By: #### 8 4511 #### [facility] [address] [place] [address], [facility] Respiratory rate 24 /min Normal The [facility] Comment on above: Order Comment: RESUL TS CHECKED AND CALLED. ACCURATELY READ BACK BY Jina TAVAREZ ED RN Performed By: #### 8 4511 #### [facility] [address] [place] [address], [facility] TIDAL VOLUME (VT) CC 450 Normal [facility] Comment on above: Order Comment: RESUL TS CHECKED AND CALLED. ACCURATELY READ BACK BY Jina TAVAREZ ED RN Performed By: #### 8 4511 #### [facility] [address] [place] [address], [facility] BASE EXCESS -10 mmol/L Low -2-3 The [facility] Comment on above: Performed By: #### 8 4511 #### [facility] [address] [place] [address], [facility] [employer] VENTILATOR Normal The [facility] Comment on above: Performed By: #### 8 4511 #### [facility] [address] [place] [address], [facility] FIO2 60 % Normal [facility] Comment on above: Performed By: #### 8 4511 #### [facility] [address] [place] [address], [facility] HCO3 (Bld) [Moles/Vol] 20 mmol/L Low 21-28 [facility] Comment on above: Result Comment: RESU LTS CHECKED AND CALLED. ACCURATELY READ BACK BY Jina TAVAREZ ED, RN Performed By: #### 8 4511 #### [facility] [address] [place] [address], [facility] IONIZED CALCIUM 1.13 mmol/L Normal 1.13-1.32 The [facility] Comment on above: Performed By: #### 8 4511 #### [facility] [address] [place] [address], [place] MIN VOLUME 6.8 Normal [facility] Comment on above: Performed By: #### 8 4511 #### [facility] [address] [place] [address], [place] MODALITY AV VC Normal [facility] Comment on above: Performed By: #### 8 4511 #### [facility] [address] [place] [address], [place] Oxygen (Bld) [Partial pressure] 65 mm[Hg] Low 83-108 [facility] Comment on above: Performed By: #### 8 4511 #### [facility] [address] [place] [address], [place] Oxygen saturation in Blood 87.0 % Critically low 94.0-97.0 [facility] Comment on above: Performed By: #### 8 4511 #### [facility] [address] [place] [address], [place] PCO2 59 mmHg Critically high 35-45 The [facility] Comment on above: Performed By: #### 8 4511 #### [facility] [address] [place] [address], [place] PEEP 8.0 CMH20 Normal [facility] Comment on above: Performed By: #### 8 4511 #### [facility] [address] [place] [address], [place] pH (Bld) 7.14 [pH] Critically low 7.35-7.45 The [facility] Comment on above: Result Comment: RESU LTS CHECKED AND CALLED. ACCURATELY READ BACK BY Jina TAVAREZ ED, RN Performed By: #### 8 4511 #### [facility] [address] [place] [address], [place] Respiratory rate 14 /min Normal The [facility] Comment on above: Performed By: #### 8 4511 #### [facility] [address] [place] [address], [facility] TIDAL VOLUME (VT) CC 500 Normal [facility] Comment on above: Performed By: #### 8 4511 #### [facility] [address] [place] [address], [facility] BASIC METABOLIC PANELon 08-0 Calcium [Mass/Vol] 8.5 mg/dL Low 8.6-10.3 The [facility] Comment on above: Performed By: #### 8 5499 #### [facility] [address] [place] [address], [facility] Chloride [Moles/Vol] 102 mmol/L Normal 98-107 [facility] Comment on above: Performed By: #### 8 5499 #### [facility] [address] [place] [address], [facility] CO2 [Moles/Vol] 19 mmol/L Low 21-31 The [facility] Comment on above: Performed By: #### 8 5499 #### [facility] [address] [place] [address], [facility] Creatinine [Mass/Vol] 1.89 mg/dL High 0.60-1.20 [facility] Comment on above: Performed By: #### 8 5499 #### [facility] [address] [place] [address], [facility] EGFR 31 ml/min/1.73sq m Abnormal >60 The [facility] Comment on above: Result Comment: [facility]'s estimated glomerular filtration rate (eGFR) will no [...] individuals. Performed By: #### 8 5499 #### [facility] [address] [facility] [place] [address], [facility] Glucose [Mass/Vol] 465 mg/dL High 70-100 The [facility] Comment on above: Performed By: #### 8 5499 #### [facility] [address] [place] [address], [facility] Potassium [Moles/Vol] 6.2 mmol/L Critically high 3.5-5.1 [facility] Comment on above: Result Comment: M-CR ITICAL RESULT(S) REVIEWED, CALLED TO AND READ BACK BY Alexandra Vásquez RN at 2021. M-No hemolysis. Performed By: #### 8 5499 #### [facility] [address] [place] [address], [facility] Sodium [Moles/Vol] 135 mmol/L Low 136-145 The [facility] Comment on above: Performed By: #### 8 5499 #### [facility] [address] [place] [address], [facility] Urea nitrogen [Mass/Vol] 28 mg/dL High 7-25 [facility] Comment on above: Performed By: #### 8 5499 #### [facility] [address] [place] [address], [facility] BLOOD GASES BTYon 11-20-2021 02 MODE VENTILATOR Normal The [facility] Comment on above: Performed By: #### V ITAD #### [facility] [address] [place] [address] [address] Kelsie OBANDO TEST Positive Normal The [facility] Comment on above: Performed By: #### V ITAD #### [facility] [address] [address] [address] Kelsie Dominguez Base excess Calc (Bld) [Moles/Vol] -14.69977 mmol/L Critically low -2.0-2.0 [facility] Comment on above: Performed By: #### V ITAD #### [facility] [address] [place] [address] Dr. Kelsie Dominguez BIPAP PRESSURE Normal [facility] Comment on above: Performed By: #### V ITAD #### [facility] [address] [place] [address] Dr. Kelsie Dominguez CO2 [Moles/Vol] 34.7 mmol/L Critically high 23.0-28.0 [facility] Comment on above: Performed By: #### V ITAD #### [facility] [address] [place] [address] Dr. Kelsie Dominguez CPAP [facility] Comment on above: Performed By: #### V ITAD #### [facility] [address] [place] [address] Dr. Kelsie Dominguez FIO2 100.00 % [facility] Comment on above: Performed By: #### V ITAD #### [facility] [address] [place] [address] Dr. Kelsie Dominguez HCO3 (Bld) [Moles/Vol] 13.8 mmol/L Critically low 22.0-26.0 [facility] Comment on above: Performed By: #### V ITAD #### [facility] [address] [place] [address] Dr. Kelsie Dominguez LPM [facility] Comment on above: Performed By: #### V ITAD #### [facility] [address] [place] [address] Dr. Kelsie Dominguez MINUTE VOLUME Normal [facility] Comment on above: Performed By: #### V ITAD #### [facility] [address] [place] [address] Dr. Kelsie Dominguez Oxygen (Bld) [Partial pressure] 122.0 mm[Hg] Critically high 80.0-100.0 [facility] Comment on above: Performed By: #### V ITAD #### [facility] [address] [place] [address] Dr. Kelsie Dominguez Oxygen saturation in Blood 97.0 % Normal 95.0-100.0 [facility] Comment on above: Performed By: #### V ITAD #### [facility] [address] [place] [address] Dr. Kelsie Dominguez PCO2 53.1 mmHg Critically high 35.0-45.0 [facility] Comment on above: Performed By: #### V ITAD #### [facility] [address] [place] [address] Dr. Kelsie Dominguez PEEP 8 [facility] Comment on above: Performed By: #### V ITAD #### [facility] [address] [place] [address] Dr. Kelsie Dominguez pH (Bld) 7.084 [pH] Critically low 7.350-7.450 [facility] Comment on above: Performed By: #### V ITAD #### [facility] [address] [place] [address] Dr. Kelsie Dominguez PIP [facility] Comment on above: Performed By: #### V ITAD #### [facility] [address] [place] [address] Dr. Kelsie Dominguez PS 14 [facility] Comment on above: Performed By: #### V ITAD #### [facility] [address] [place] [address] Dr. Kelsie Dominguez PUNCTURE SITE RR [facility] Comment on above: Performed By: #### V ITAD #### [facility] [address] [place] [address] Dr. Kelsie Dominguez RATE 20 bpm [facility] Comment on above: Performed By: #### V ITAD #### [facility] [address] [place] [address] Dr. Kelsie Dominguez VENT MODE PSIMV [facility] Comment on above: Performed By: #### V ITAD #### [facility] [address] [place] [address] Dr. Kelsie Dominguez [place] [facility] Comment on above: Performed By: #### V ITAD #### [facility] [facility] [address] [place] [address] Dr. Kelsie Dominguez BNPon 11-20-2021 Natriuretic peptide B (Bld) [Mass/Vol] 2560.0 pg/mL Critically high <=900.0 [facility] Comment on above: Performed By: #### C MP, CMADM, BNP #### [facility] [address] [place] [address] Dr. Kelsie Dominguez CARDIAC JANIA ADMITon 022 CK [Catalytic activity/Vol] 93 U/L Normal 26-192 [facility] Comment on above: Performed By: #### C MP, CMADM, BNP #### [facility] [address] [place] [address] Dr. Kelsie Dominguez CK.MB [Mass/Vol] 2.87 ng/mL Normal <=3.60 [facility] Comment on above: Performed By: #### C MP, CMADM, BNP #### [facility] [address] [place] [address] Dr. Kelsie Dominguez HSTROP 12.2 pg/mL Normal 4.0-51.3 The [facility] Comment on above: Result Comment: CUT- OFF POINTS HAVE BEEN ESTABLISHED BASED ON THE FOURTH UNIVERSAL DEFINITIONS OF MYOCARDIAL INFARCTION. THE UPPER REFERENCE LIMIT (URL) OF TROPONIN, DEFINED THE 99TH PERCENTILE OF cTnI DISTRIBUTION IN A REFERENCE POPULATION, HAS BEEN CONFIRMED THE DECISION THRESHOLD FOR [place] DIAGNOSIS. Performed By: #### C MP, CMADM, BNP #### [facility] [address] [place] [address] Dr. Kelsie Dominguez VARGAS 112 ng/mL Critically high 9-[address] [facility] Comment on above: Performed By: #### C MP, CMADM, BNP #### [facility] [address] [place] [address] Dr. Kelsie Dominguez CBC W MANUAL DIFFon 11-21-19 22 ATYPICAL LYMPH # Normal [facility] Comment on above: Performed By: #### C BCKASEY #### [facility] [address] [place] [address] Dr. Kelsie Dominguez ATYPICAL LYMPH % Normal [facility] Comment on above: Performed By: #### C LIBERTAD #### [facility] [address] [place] [address] Dr. Kelsie Dominguez BAND # 0.1 103/ul Normal 0.0-0.3 The [facility] Comment on above: Performed By: #### C LIBERTAD #### [facility] [address] [place] [address] Dr. Kelsie Dominguez BAND % 1 % Normal 0-5 The [facility] Comment on above: Performed By: #### C LIBERTAD #### [facility] [address] [place] [address] Dr. Kelsie Dominguez BASOM # 0.00 103/ul Normal 0.00-0.10 [facility] Comment on above: Performed By: #### C LIBERTAD #### [facility] [address] [place] [address] Dr. Kelsie Dominguez BASOM % 0.0 % Critically low 0.2-2.0 [facility] Comment on above: Performed By: #### C LIBERTAD #### [facility] [address] [place] [address] Dr. Kelsie Dominguez BLAST # Normal [facility] Comment on above: Performed By: #### C LIBERTAD #### [facility] [address] [place] [address] Dr. Kelsie Dominguez BLAST % Normal [facility] Comment on above: Performed By: #### C LIBERTAD #### [facility] [address] [place] [address] Dr. Kelsie Dominguez CORRECTED WBC Normal 4.0-11.0 The [facility] Comment on above: Performed By: #### C LIBERTAD #### [facility] [address] [place] [address] Dr. Kelsie Dominguez EOS # 0.00 103/ul Normal 0.00-0.70 The [facility] Comment on above: Performed By: #### C LIBERTAD #### [facility] [address] [place] [address] Dr. Kelsie Dominguez EOS% 0.0 % Critically low 0.9-7.0 The [facility] Comment on above: Performed By: #### C LIBERTAD #### [facility] [address] [address] [address] Kelsie Dominguez HCT 43.8 % Normal 36.0-48.0 [facility] Comment on above: Performed By: #### C LIBERTAD #### [facility] [address] [address] [address] Kelsie Dominguez HGB 13.3 g/dl Normal 12.0-16.0 The [facility] Comment on above: Performed By: #### C LIBERTAD #### [facility] [address] [address] [address] Kelsie Dominguez LYMPHM # 3.78 103/ul Normal 1.20-3.80 The [facility] Comment on above: Performed By: #### C LIBERTAD #### [facility] [address] [place] [address] Dr. Kelsie Dominguez LYMPHM% 27.0 % Normal 20.5-60.0 [facility] Comment on above: Performed By: #### C LIBERTAD #### [facility] [address] [place] [address] Dr. Kelsie Dominguez MCH 31.4 pg Normal 26.7-34.0 [facility] Comment on above: Performed By: #### C LIBERTAD #### [facility] [address] [place] [address] Dr. Klesie Dominguez MCHC 30.4 g/dl Normal 29.9-35.2 The [facility] Comment on above: Performed By: #### C LIBERTAD #### [facility] [address] [address] [address] Kelsie Dominguez MCV 103.3 fL Critically high 81.0-99.[address] [facility] Comment on above: Performed By: #### C LIBERTAD #### [facility] [address] [place] [address] Dr. Kelsie Dominguez METAMYELOCYTE # Normal The [facility] Comment on above: Performed By: #### C LIBERTAD #### [facility] [address] [place] [address] Dr. Kelsie Dominguez METAMYELOCYTE % Normal The [facility] Comment on above: Performed By: #### C LIBERTAD #### [facility] [address] [address] [address] Kelsie Dominguez MONOM# 1.12 103/ul Critically high 0.30-0.80 [facility] Comment on above: Performed By: #### C LIBERTAD #### [facility] [address] [address] [address] Kelsie Dominguez MONOM% 8.0 % Normal 1.7-12.0 [facility] Comment on above: Performed By: #### C LIBERTAD #### [facility] [address] [address] [address] Kelsie Dominguez MPV 9.2 fL Critically low 9.5-13.5 [facility] Comment on above: Performed By: #### C LIBERTAD #### [facility] [address] [place] [address] Dr. Kelsie Dominguez MYELOCYTE # Normal [facility] Comment on above: Performed By: #### C LIBERTAD #### [facility] [address] [address] [address] Kelsie Dominguez MYELOCYTE % Normal [facility] Comment on above: Performed By: #### C LIBERTAD #### [facility] [address] [address] [address] Kelsie Dominguez NRBC Normal [facility] Comment on above: Performed By: #### C LIBERTAD #### [facility] [address] [place] [address] Dr. Kelsie Dominguez PLT 213 103/ul Normal 150-450 [facility] Comment on above: Performed By: #### C LIBERTAD #### [facility] [address] [address] [address] Kelsie Dominguez RBC 4.24 106/ul Normal 4.20-5.40 [facility] Comment on above: Performed By: #### C LIBERTAD #### [facility] [address] [place] [address] Dr. Kelsie Dominguez RDW 14.6 % Normal 11.0-15.0 [facility] Comment on above: Performed By: #### C LIBERTAD #### [facility] [address] [address] [address] Kelsie Dominguez SEG # 8.96 103/ul Critically high 1.40-6.50 [facility] Comment on above: Performed By: #### C LIBERTAD #### [facility] [address] [address] [address] Kelsie Dominguez SEG % 64.0 % Normal 43.0-75.0 The [facility] Comment on above: Performed By: #### C KAREEMMAN #### [facility] [address] [address] [address] Kelsie Dominguez WBC 14.0 103/ul Critically high 4.0-11.0 [facility] Comment on above: Performed By: #### C LIBERTAD #### [facility] [address] [place] [address] Dr. Kelsie Dominguez Covid-19 PCR (CVDTB)on SARS-CoV-2 (COVID-19) RNA SUZANNA+probe Ql (Unsp spec) Not detected Normal NOT DETECTED The [facility] Comment on above: Result Comment: When diagnostic [...] for this test is supported by the [employer]'s declaration that [...] used). Performed By: #### C LIBERTAD #### [facility] [address] [place] [address] Dr. Kelsie Dominguez D-DIMERon 11-20-2021 D-DIMER 2.80 mg/L FEU Critically high <=0.59 The [facility] Comment on above: Performed By: #### V ITAD #### [facility] [address] [place], [place] [address] Dr. Kelsie Dominguez D-DIMER COMMENTS SEE BELOW Normal [facility] Comment on above: Result Comment: [...] hospitalization. Performed By: #### V ITAD #### [facility] [address] [address] [address] Kelsie Dominguez LACTATE BLOODon 11-20-2021 Lactate [Moles/Vol] 5.2 mmol/L Critically high .5-2.2 The [facility] Comment on above: Order Comment: RESUL TS CHECKED AND CALLED. ACCURATELY READ BACK BY Jina TAVAREZ ED RN Result Comment: M-CR ITICAL RESULT(S) REVIEWED, CALLED TO AND READ BACK BY Alexandra Vásquez RN at 2140. Performed By: #### 8 [id number] #### [facility] [address] LACTATE/LACTIC ACIDon 2021 Lactate [Moles/Vol] 12.3 mmol/L Critically high 0.4-1.9 [facility] Comment on above: Performed By: #### H H #### [facility] [address] [address] [address] Kelsie Dominguez LIVER BATTERYon 11-20-2021 Albumin [Mass/Vol] 4.1 g/dL Normal 3.5-5.7 [facility] Comment on above: Performed By: #### [id number] #### [facility] [address] [place] [address], [facility] ALKALINE PHOSPH 213 IU/L High 34-104 The [facility] Comment on above: Performed By: #### 8 [id number] #### [facility] [address] [place] [address], [place] ALT [Catalytic activity/Vol] 437 U/L Critically high 7-52 The [facility] Comment on above: Performed By: #### 8 [id number] #### [facility] [address] [place] [address], [place] AST [Catalytic activity/Vol] 717 U/L High 13-39 [facility] Comment on above: Performed By: #### 8 [id number] #### [facility] [address] [place] [address], [place] Bilirubin [Mass/Vol] 1.7 mg/dL High 0.3-1.0 [facility] Comment on above: Performed By: #### 8 [id number] #### [facility] [address] [place] [address], [place] Bilirubin.direct [Mass/Vol] 0.9 mg/dL High 0.0-0.2 [facility] Comment on above: Performed By: #### 8 [id number] #### [facility] [address] [place] [address], [place] Protein [Mass/Vol] 6.8 g/dL Normal 6.0-8.3 The [facility] Comment on above: Performed By: #### 8 [id number] #### [facility] [address] [place] [address], [place] MAGNESIUM BLOODon 11-20-2021 Magnesium [Mass/Vol] 2.1 mg/dL Normal 1.9-2.7 [facility] Comment on above: Performed By: #### 8 [id number] #### [facility] [address] [place] [address], [place] PHOSPHORUS BLOODon Phosphate [Mass/Vol] 7.1 mg/dL High 2.5-5.0 [facility] Comment on above: Performed By: #### 8 [id number] #### [address] POINT OF CARE GLUCOSEon 08-0 Glucose [Mass/Vol] 477 mg/dL Critically high 74-106 T [facility] Comment on above: Performed By: #### C LIBERTAD #### [facility] [address] [address] [address] Kelsie Dominguez PORTABLE CHEST 1 VIEWon PORTABLE CHEST [address] [facility] Department of Radiology [address] [place] [address] Patient Name: RAQUEL VILA : 1965 Sex: F Age: Race: White Pt. Location: [facility] Patient Status: E Ordered Date: 11/20/2021 [...] Electronically signed: Aziza Funes M.D.. Transcribed by: [email or web address], User Resident: Electronically Signed by: AZIZA FUNES @ 11/20/2021 09:02 PM Normal [facility] Comment on above: Order Comment: Check E.T. Position PROF 14(COMP METB)on 022 Albumin [Mass/Vol] 3.4 g/dL Normal 3.4-5.0 [facility] Comment on above: Performed By: #### C MP, CMADM, BNP #### [facility] [address] [place] [address] Dr. Kelsie Dominguez Albumin/Globulin [Mass ratio] 0.9 {ratio} Normal [facility] Comment on above: Performed By: #### C MP, CMADM, BNP #### [facility] [address] [address] [address] Kelsie Dominguez ALP [Catalytic activity/Vol] 161 U/L Critically high 46-116 [facility] Comment on above: Performed By: #### C MP, CMADM, BNP #### [facility] [address] [address] [address] Kelsie Dominguez ALT [Catalytic activity/Vol] 91 U/L Critically high 14-59 [facility] Comment on above: Performed By: #### C MP, CMADM, BNP #### [facility] [address] [address] [address] Kelsie Dominguez Anion gap [Moles/Vol] 29.0 mmol/L Normal [facility] Comment on above: Performed By: #### C MP, CMADM, BNP #### [facility] [address] [address] [address] Kelsie Dominguez AST [Catalytic activity/Vol] 134 U/L Critically high 15-37 [facility] Comment on above: Performed By: #### C MP, CMADM, BNP #### [facility] [address] [address] [address] Kelsie Dominguez Bilirubin [Mass/Vol] 1.0 mg/dL Normal 0.2-1.0 [facility] Comment on above: Performed By: #### C MP, CMADM, BNP #### [facility] [address] [address] [address] Kelsie Dominguez Calcium [Mass/Vol] 8.9 mg/dL Normal 8.5-10.1 [facility] Comment on above: Performed By: #### C MP, CMADM, BNP #### [facility] [address] [place] [address] Dr. Kelsie Dominguez Chloride [Moles/Vol] 98 mmol/L Normal 98-107 [facility] Comment on above: Performed By: #### C MP, CMADM, BNP #### [facility] [address] [place] [address] Dr. Kelsie Dominguez CO2 [Moles/Vol] 15.6 mmol/L Critically low 21.0-32.0 [facility] Comment on above: Performed By: #### C MP, CMADM, BNP #### [facility] [address] [place] [address] Dr. Kelsie Dominguez Creatinine [Mass/Vol] 2.18 mg/dL Critically high 0.55-1.02 [facility] Comment on above: Performed By: #### C MP, CMADM, BNP #### [facility] [address] [place] [address] Dr. Kelsie Dominguez EGFR-AF ERITREAN 28 mL/min/1.73m2 Critically low >=60 [facility] Comment on above: Performed By: #### C MP, CMADM, BNP #### [facility] [address] [place] [address] Dr. Kelsie Dominguez EGFR-NON AF ERITREAN 23 mL/min/1.73m2 Critically low >=60 [facility] Comment on above: Performed By: #### C MP, CMADM, BNP #### [facility] [address] [address] [address] Kelsie Dominguez Globulin (S) [Mass/Vol] 3.9 g/dL Normal [facility] Comment on above: Performed By: #### C MP, CMADM, BNP #### [facility] [address] [place] [address] Dr. Kelsie Dominguez Glucose [Mass/Vol] 587 mg/dL Critically high 74-106 T [facility] Comment on above: Performed By: #### C MP, CMADM, BNP #### [facility] [address] [place] [address] Dr. Kelsie Dominguez Potassium [Moles/Vol] 6.6 mmol/L Critically high 3.5-5.1 [facility] Comment on above: Performed By: #### C MP, CMADM, BNP #### [facility] [address] [place] [address] Dr. Kelsie Dominguez Protein [Mass/Vol] 7.3 g/dL Normal 6.4-8.2 The [facility] Comment on above: Performed By: #### C MP, CMADM, BNP #### [facility] [address] [place] [address] Dr. Kelsie Dominguez Sodium [Moles/Vol] 136 mmol/L Normal 136-145 [facility] Comment on above: Performed By: #### C MP, CMADM, BNP #### [facility] [address] [place] [address] Dr. Kelsie Dominguez Urea nitrogen [Mass/Vol] 25.0 mg/dL Critically high 7.0-18.0 [facility] Comment on above: Performed By: #### C MP, CMADM, BNP #### [facility] [address] [place] [address] Dr. Kelsie Dominguez Urea nitrogen/Creatinine [Mass ratio] 11.5 mg/mg Normal [facility] Comment on above: Performed By: #### C MP, CMADM, BNP #### [facility] [address] [place] [address] Dr. Kelsie Dominguez PROTIMEon 11-20-2021 INR Coag (PPP) [Relative time] 1.06 {INR} Normal [facility] Comment on above: Performed By: #### V ITAD #### [facility] [address] [place] [address] Dr. Kelsie Dominguez INR GUIDELINES SEE BELOW Normal The [facility] Comment on above: Result Comment: EDDI RED INR: 2.0 - 3.0 CONDITIONS NOT LISTED BELOW 2.5 - 3.5 FOR PROSTHETIC HEART VALVE REPLACEMENT 2.5 - 3.5 RECURRENT THROMBOSIS Performed By: #### V ITAD #### [facility] [address] [place] [address] Dr. Kelsie Dominguez PT Coag (PPP) [Time] 11.4 s Normal 9.0-11.6 [facility] Comment on above: Performed By: #### V ITAD #### [facility] [address] [place] [address] Dr. Kelsie Dominguez PTTon 11-20-2021 aPTT Coag (Bld) [Time] 29.0 s Normal 22.3-36.2 [facility] Comment on above: Performed By: #### V ITAD #### [facility] [address] [place] [address] Dr. Kelsie Dominguez TROPONIN-Ion 11-20-2021 Troponin I.cardiac [Mass/Vol] 0.01 ng/mL Normal 0.00-0.04 [facility] Comment on above: Result Comment: REFE RENCE RANGES: 0.00 - 0.04 ng/ml NORMAL 0.05 - 0.50 ng/ml INDETERMINATE > 0.50 ng/ml CONSISTENT WITH AN M.I. Performed By: #### 8 [id number] #### [facility] [address] [place] [address], [facility] URINALYSISon 11-20-2021 Appearance (U) CLEAR Normal CLEAR The [facility] Comment on above: Order Comment: Yes: Add to Previous draw if able Performed By: #### 1 0008 #### [facility] [address] [place] [address], [place] Bilirubin Ql (U) Negative Normal NEGATIVE [facility] Comment on above: Order Comment: Yes: Add to Previous draw if able Performed By: #### 1 0008 #### [facility] [address] [place] [address], [place] Color (U) YELLOW Normal YELLOW [facility] Comment on above: Order Comment: Yes: Add to Previous draw if able Performed By: #### 1 0008 #### [facility] [address] [place] [address], [place] EPIS NONE SEEN Normal FEW,OCC,NONE SEEN [facility] Comment on above: Order Comment: Yes: Add to Previous draw if able Performed By: #### 1 0008 #### [facility] [address] [place] [address], [place] Glucose Ql (U) >=1000 Abnormal NEGATIVE The [facility] Comment on above: Order Comment: Yes: Add to Previous draw if able Performed By: #### 1 0008 #### [facility] [address] [place] [address], [place] Hemoglobin Ql (U) SMALL Abnormal NEGATIVE The [facility] Comment on above: Order Comment: Yes: Add to Previous draw if able Performed By: #### 1 0008 #### [facility] [address] [place] [address], [place] KETONE Negative Normal NEGATIVE [facility] Comment on above: Order Comment: Yes: Add to Previous draw if able Performed By: #### 1 0008 #### [facility] [address] [place] [address], [place] LEUK DORIS Negative Normal NEGATIVE [facility] Comment on above: Order Comment: Yes: Add to Previous draw if able Performed By: #### 1 0008 #### [facility] [address] [place] [address], [place] MUCUS THREADS OCC Abnormal NONE SEEN The [facility] Comment on above: Order Comment: Yes: Add to Previous draw if able Performed By: #### 1 0008 #### [facility] [address] [facility]. [address] Nitrite Ql (U) Negative Normal NEGATIVE The [facility] Comment on above: Order Comment: Yes: Add to Previous draw if able Performed By: #### 1 0008 #### [facility] [address] [facility]. [address] pH (U) 6.0 [pH] Normal 5.0-8.0 [facility] Comment on above: Order Comment: Yes: Add to Previous draw if able Performed By: #### 1 0008 #### [facility] [address] [place] [address], [facility] Protein Ql (U) 30 Abnormal NEGATIVE The [facility] Comment on above: Order Comment: Yes: Add to Previous draw if able Performed By: #### 1 0008 #### [facility] [address] RBC 0-2 Abnormal NONE SEEN The [facility] Comment on above: Order Comment: Yes: Add to Previous draw if able Performed By: #### 1 0008 #### [facility] [address] SPEC GRAV 1.015 Normal 1.015-1.020 The [facility] Comment on above: Order Comment: Yes: Add to Previous draw if able Performed By: #### 1 0008 #### [facility] [address] WBC UA 0-2 Abnormal NONE SEEN The [facility] Comment on above: Order Comment: Yes: Add to Previous draw if able Performed By: #### 1 0008 #### [facility] [address] XR CHEST 1 Von 11-20-2021 XR [...] by: AMARA DAVISON Date: 2021-11-20 17:47 Normal [facility] ECHOCARDIO M/2D COMPLETEon 0 10-02-2021 ECHOCARDIO M/2D COMPLETE Patient: RAQUEL VILA Exam Date: 10/02/2021 : 1965 Gender:F Ordering : DR KATHERYN NIXON M.D. Admission #: [id number] Family : SHAIKH Silvino JACQUES . Order #: [id number] CLICK HERE TO VIEW EXAM ECHOCARDIOGRAM REPORT [...] Nixon M.D. on 10/03/2021 at 18:42 Normal The [facility] US ST HEAD_NECKon 09-17-[address] HEAD_NECK [...] AMARA DAVISON Date: 2021-09-17 09:22 Normal The [facility] US THYROIDon 09-17-2021 US THYROID EXAMINATION: US [...] one year is recommended. TR 4: [employer] TI-RADS committee's white paper recommendations for thyroid lesions classified as TR4 (moderately suspicious) are listed below: > 1.0 cm. Follow-up ultrasound in 1, 2, 3, and 5 years. > 1.5 cm. FNA. J. Am Alfonso Radiol 2017;14:587-595. Electronically authenticated by: AMARA DAVISON Date: 2021-09-17 09:29 Normal [facility] Vital Signs Date Time Vital Sign Value Performing Clinician Facility 02-08-2022 15:00-0400 Body height 165.1 cm Margarita Truman Other [facility] Other 02-08-2022 15:00-0400 Body mass index (BMI) [Ratio] 42.66 kg/m2 Margarita Truman Other [facility] Other 02-08-2022 15:00-0400 Body temperature 96.6 [degF] Margarita Truman Other [facility] Other 02-08-2022 15:00-0400 Body weight 116.3 kg Margarita Truman Other [facility] Other 02-08-2022 15:00-0400 Diastolic blood pressure 76 mm[Hg] Margarita Truman Other [facility] Other 02-08-2022 15:00-0400 Respiratory rate 18 /min Margarita Truman Other [facility] Other 02-08-2022 15:00-0400 SaO2% (BldA) [Mass fraction] 96 % Margarita Truman Other [facility] Other 02-08-2022 15:00-0400 Systolic blood pressure 114 mm[Hg] Margarita Truman Other [facility] Other 12-06-2021 12:35-0400 Body height 165.1 cm Isaias Gomez Other [facility] Other 12-06-2021 12:35-0400 Body mass index (BMI) [Ratio] 43.26 kg/m2 Isaias Gomez Other [facility] Other 12-06-2021 12:35-0400 Body temperature 97.3 [degF] Isaias Gomez Other [facility] Other 12-06-2021 12:35-0400 Body weight 117.94 kg Isaias Gomez Other [facility] Other 12-06-2021 12:35-0400 Respiratory rate 18 /min Isaias Gomez Other [facility] Other 12-06-2021 12:35-0400 SaO2% (BldA) [Mass fraction] 93 % Isaias Gomez Other [facility] Other 10-10-2021 14:05-0400 Blood Pressure Location [facility] [place] 10-10-2021 14:05-0400 Diastolic blood pressure 78 mm[Hg] Nalini NILL [facility] [place] 10-10-2021 14:05-0400 Heart rate 72 /min Nalini NILL [facility] [place] 10-10-2021 14:05-0400 Respiratory rate 16 /min Nalini NILL [facility] [place] 10-10-2021 14:05-0400 Systolic blood pressure 120 mm[Hg] Nalini NILL [facility] [place] 08-08-2021 16:00-0400 Body height 165.1 cm Margarita Truman Other [facility] Other 08-08-2021 16:00-0400 Body mass index (BMI) [Ratio] 48.89 kg/m2 Margarita Truman Other [facility] Other 08-08-2021 16:00-0400 Body temperature 97.8 [degF] Margarita Truman Other [facility] Other 08-08-2021 16:00-0400 Body weight 133.27 kg Margarita Truman Other [facility] Other 08-08-2021 16:00-0400 Diastolic blood pressure 78 mm[Hg] Margarita Truman Other [facility] Other 08-08-2021 16:00-0400 Respiratory rate 18 /min Margarita Truman Other [facility] Other 08-08-2021 16:00-0400 SaO2% (BldA) [Mass fraction] 95 % Margarita Truman Other [facility] Other 08-08-2021 16:00-0400 Systolic blood pressure 122 mm[Hg] Margarita Truman Other [facility] Other Encounters Encounter Date Encounter Type Care Provider Facility Start: 09-14-2023 [facility] Start: 09-09-2023 End: 09-09-2023 ambulatory [facility] Not Available Start: 08-19-2023 End: 08-19-2023 ambulatory [facility] Not Available Start: 08-12-2023 End: 08-12-2023 ambulatory [facility] Not Available Start: 07-29-2023 ambulatory [facility] Start: 06-13-2023 End: 06-14-[address] [place] [address] Start: 05-30-2023 End: 05-30-2023 ambulatory JANIA Bassett [facility] Start: 05-24-2023 End: 05-24-[address] [facility] Start: 05-07-2023 End: 05-07-2023 ambulatory SHAIKH AMBAR Not Available Start: 04-25-2023 End: 04-25-2023 ambulatory JANIA Bassett [facility] Start: 12-07-2022 End: 12-07-[address] [facility] Start: 11-01-2022 ambulatory Nalini LANDERS Facility:[facility] Start: 08-07-2022 End: 08-08-2022 ambulatory MARGARITA TRUMAN Facility:[facility] Start: 06-14-2022 End: 06-14-2022 ambulatory Margarita Truman Other [facility] Other Start: 06-14-2022 Telephone encounter Margarita Truman [facility] Start: 06-11-2022 End: 06-11-[address] [facility] Start: 05-31-2022 End: 05-31-2022 ambulatory Giovana Crum Other [facility] Other Start: 05-31-2022 Telephone encounter Essam Elashi [facility] Start: 03-23-2022 End: 03-31-2022 ambulatory SHAIKH Ashley AMBAR Facility:[facility] Start: 02-14-2022 End: 02-15-[address] DOCTOR SHAHID Facility:[facility] Start: 02-08-2022 End: 02-08-2022 ambulatory Margarita Truman Other [facility] Other Start: 02-08-2022 Office outpatient visit 25 minutes Margarita Truman [facility] Start: 01-31-2022 End: 02-01-2022 ambulatory MARGARITA TRUMAN Facility: Start: 01-10-2022 End: 01-11-2022 ambulatory Nalini LANDERS Facility: [facility] Start: 01-10-2022 End: 01-10-2022 Patient encounter procedure Nalini LANDERS General Surgery [facility] [place] Start: 12-27-2021 End: 12-28-[address] NALINI LANDERS . Facility: Start: 12-06-2021 End: 12-06-2021 ambulatory Isaias Jason Other [facility] Other Start: 12-06-2021 Office outpatient visit 15 minutes Isaias Hi-Nella [facility] Start: 11-21-2021 End: 11-21-2021 ambulatory UNKNOWN PROVIDER Facility:[facility] Start: 11-20-2021 End: 11-24-2021 Evaluation and management of inpatient ERIC AGUILARUR Facility:[facility] Start: 11-20-2021 End: 11-20-[address] AMARA DAVISON Facility:[facility] Start: 10-10-2021 End: 10-10-2021 Patient encounter procedure Nalini LANDERS General [facility] Start: 10-02-2021 End: 10-03-[address] KATHERYN NIXON Facility:[facility] Start: 09-16-2021 End: 09-17-[address] AMARA DAVISON Facility:[facility] Start: 08-08-2021 End: 08-08-2021 ambulatory Margarita Truman Other [facility] Other Start: 08-08-2021 Office outpatient visit 25 minutes Margarita Truman [facility] Procedures Date Procedure Procedure Detail Performing Clinician Start: 04-25-2023 Follow-up visit Follow-up JANIA W MATT section Nalini Martinez Deviated nasal septu m (disorder) Nalini JULIENL Excision of cyst Nalini NIL L Excision of uvula Nalini NI LL Rotator cuff syndrom e (disorder) Nalini JULIENL Comment on above: right Tonsillectomy and adenoidectomy Nalini JULIENL Immunizations Immunization Date Immunization Notes Care Provider Fa cility NEGATED: Highlighted row has not occurred!05-18-2020 influenza virus vaccine, unspecified formulation Nalini LANDERS [facility] [place] Payers Date Payer Category Payer Unknown [id number] 2.16. [id number] 1965 Unknown [id number] 2.16.8 40.1.701424.3.579.2.647 1965 Unknown [id number] 2.16.84 0.1.517183.3.579.2.593 1965 Unknown [id number] 2.16.84 0.1.855014.3.579.2.593 1965 Unknown [id number] 2.16.84 0.1.328019.3.579.2.593 1965 Unknown [id number] 2.16.84 0.1.395948.3.579.2.593 1965 Unknown [id number] 2.16.84 0.1.948031.3.579.2.593 1965 Unknown [id number] 2.16.84 0.1.337957.3.579.2.593 1965 Unknown [id number] 2.16.84 0.1.213522.3.579.2.593 1965 Unknown [id number] 2.16.84 0.1.593034.3.579.2.593 1965 Unknown [id number] 2.16.8 40.1.241533.3.579.2.727 1965 Unknown [id number] 2.16.8 40.1.756209.3.579.2.727 1965 Unknown [id number] 2.16.8 40.1.210041.3.579.2.1286 1965 Unknown [id number] 2.16.8 40.1.376384.3.579.2.1286 1965 Unknown [id number] 2.16.84 0.1.145319.3.579.2.1286 1965 Unknown [id number] 2.16.84 0.1.558528.3.579.2.1259 1965 Unknown [id number] 2.16.84 0.1.592451.3.579.2.1259 1965 Unknown [id number] 2.16.84 0.1.729579.3.579.2.1259 1965 Unknown [id number] 2.16.84 0.1.453220.3.579.2.1259 1965 Unknown [id number] 2.16.8 40.1.288530.3.579.2.1286 1965 Unknown [id number] 2.16.8 40.1.595477.3.579.2.1286 1965 Unknown [id number] 2.16.8 40.1.319565.3.579.2.1286 1965 Unknown [id number] 2.16.8 40.1.211350.3.579.2.1286 1959 Medicaid [id number] 1959 Unknown [id number] Unknown [id number] 2.16.840.1.812993.19 Social History Date Type Detail Facility Start: 10-10-2021 Tobacco smoking status Ex-smoker (fi nding) [facility] Other Tobacco smoking status Never Gener [facility] [place] Sex Assigned At Female [facility] Other Functional Status Date Assessment Result Facility 10-10-2021 Functional Status N/A General [facility] [place] Clinical Notes 08-08-2021 to 05-24-2023 Note Date & Type Note Facility 05-24-2023 Note [facility] Subjective Raquel Vila is a [...] exertion. No robbi (more content not included)... [facility] 12-07-2022 Note [facility] Subjective Raquel Vila is a [...] seen. Grade I: (more content not included)... [facility] 06-11-2022 Note [facility] Subjective Raquel Vila is a 56 y.o. year old female patient being seen for 6 mo follow up HOCM, hypertension, and hyperlipidemia. Had labs in Jan 2022. She is down 27#. She hasn't had issues since her admission to [facility] in Nov 2021. Patient Active Problem List [...] normal in mobility (more content not included)... [facility] 02-08-2022 Evaluation note Encounter Date Diagnosis Assessment [...] diuresis. Advised her to adequately hydrate herself. [facility] Other 09-07-2022 NoteOPERATIVE NOTE OPERATION DATE: 12/27/2021 [...] problems or questions. CC: Shaikh Ambar M.D.[id number] Evaluation note* Encounter Date Diagnosis Assessment Notes [...] days. She understands and agrees with plan. [facility] Other 08-05-2022 NoteMR#: [id number] I [facility] Pt. Name: Raquel Vila Admitted: 11/20/2021 Discharged: [...] initially transcutaneously paced and sent to the [facility] for further management. The patient was intubated and mechanically ventilated prior to her transfer to [facility]. The patient was admitted to the medical [...] Conte MD Date Trans: 11/24/2021 04:50 P/jenny [id number] cc: Lisbeth Grcae M.D. [place] [id number] [facility] [place] [address]* Encounter Date Diagnosis Assessment Notes [...] her to continue to follow with Dr. eMndenhall for the management. I have advised her [...] Will prescribe allopurinol if she gets symptoms. [facility] Other Evaluation + Plan note No data available for this section General Surgery [place] Evaluation noteNo InformationNort [employer] Other History general Narrative - Reported* Type [...] PNEUMONIA, BLOOD CLOT IN THE LUNG 07/2020 [facility] Other History general Narrative - Reported* Type [...] REACTION MIXING MET OPROLOL AND LEXAPRO 11/2021 [facility] Other History general Narrative - Reported* Type [...] REACTION MIXING MET OPROLOL AND LEXAPRO 11/2021 [facility] Other Hospital Discharge instructions No data available for this section General Surgery [place] Progress note No data available for this section General Surgery [place] Summary Purpose Family History No Family History [...] content) Personnel Name: Lisbeth Grace MD Address: [address] [place] [address] Personnel Name: Lisbeth Grace MD Address: [address] [place] [address] REASON FOR VISIT (unrecogniz ed section and content) CKDGRAY LEW FOCUS, COUGH, C ONGESTION, DIZZINESS, H/A, SINUS DRAINAGE,CKD and HTNREFILLREFILL INFORMATION SOURCE (unrecogn ized section and content) DATE CREATED AUTHOR 11/22/2021 [facility] DATE CREATED AUTHOR AUTHOR'S ORGANIZ ATION 12/01/2021 [facility] DATE CREATED AUTHOR AUTHOR'S ORGANIZ ATION 09/05/2022 [facility] [facility] DATE CREATED AUTHOR AUTHOR'S ORGANIZ ATION 11/02/2022 [facility] DATE CREATED AUTHOR AUTHOR'S ORGANIZ ATION 05/25/2023 [facility] DATE CREATED AUTHOR AUTHOR'S ORGANIZ ATION 06/21/2023 [facility] DATE CREATED AUTHOR AUTHOR'S ORGANIZ ATION 09/12/2023 [facility] DATE CREATED AUTHOR AUTHOR'S ORGANIZ ATION [facility] FOR RECORDS PERTAINING TO PATIENTS WHO ARE [...] BE BASED ON THE PRIMARY CLINICAL RECORDS. [employer] [facility]. provides no warranty or guarantee of the accuracy or completeness of information in this document.
[2023-09-30 13:18] LABS: Estimated Average Glucose 117 mg/dL; Glycohemoglobin A1C 5.7 % (4.5-6.2)
[2023-09-30 14:01] LABS: Alanine Aminotransferase 30 U/L (14-59); Albumin Globulin Ratio 0.8; Albumin Level 3.4 g/dL (3.4-5.0); Alkaline Phosphatase 134 U/L (46-116); Anion Gap 13.5; Aspartate Amino Transferase 19 U/L (15-37); BUN Creatinine Ratio 23.9; Bilirubin Total 0.3 mg/dL (0.2-1.0); Carbon Dioxide 26.5 mmol/L (21.0-32.0); Chloride 104 mmol/L (98-107); Estimated GFR (African America 49 (>=60); Estimated GFR (Non-African Ame 41 (>=60); Globulin 4.2 g/dL; Glucose 149 mg/dL (74-106); Sodium 140 mmol/L (136-145); Total Protein 7.6 g/dL (6.4-8.2)
== END 2023-09-30 12:22 | disposition home or self-care (01) ==
LOC: LAB 12:23
PROVIDERS: PCP Internal Medicine; Visit Provider Internal Medicine
DX: E11.22 Type 2 diabetes mellitus with diabetic chronic kidney disease (principal); N18.4 Chronic kidney disease, stage 4 (severe); Z79.4 Long term (current) use of insulin
CPT/HCPCS: 36415; 80053; 83036

== ENCOUNTER 2023-10-22 21:00 | Outpatient (OUT) | payer OTHER, SELFPAY ==
--- OUTSIDE RECORDS SUMMARY | 2023-10-23 07:44 | XMS_ITS | CCD ---
Author Organization [facility] Care Team Providers Care Stock Analyst Name Role Phone Lisbeth Grace Primary Care Physician Truman, Margarita Unavailable PROVIDER, UNKNOWN Attending Unavailable PROVIDER, UNKNOWN Admitting Unavailable ERIC CONTE Attending Unavailable REMINTGON NOLAN Admitting Unavailable SELF, REFERRED Referring Unavailable [...] Care Unavailable MISC, DR ASHRAF Admitting Unavailable LASHMEET, DR DAMIEN Lowry Consulting Unavailable MISC, DR [...] Attending Unavailable FAWWAD, TILLMAN Referring Unavailable FAWWAD, [facility] Primary Care Unavailable FAWWAD, TILLMAN Referring Unavailable FAWWAD, [facility] Primary Care Unavailable FAWWAD, TILLMAN Referring Unavailable FAWWAD, [facility] Primary Care Unavailable FAWWAD, TILLMAN Referring Unavailable FAWWAD, [facility] Primary Care Unavailable RIKKI MILTON Attending Unavailable FAWWAD, TILLMAN Referring Unavailable FAWWAD, [facility] Primary Care Unavailable FAWWAD, TILLMAN Attending Unavailable FAWWAD, TILLMAN Attending Unavailable FAWWAD, TILLMAN Attending Unavailable FAWWAD, TILLMAN Attending Unavailable FAWWAD, TILLMAN Attending Unavailable MOUKARBELKATHERYN Attending Unavailable MOUKARBELKATHERYN Attending Unavailable MATTJANIA SOLO Attending Unavailable FAWWAD, TILLMAN Referring Unavailable FAWWAD, [facility] Primary Care Unavailable MATTJANIA SOLO Attending Unavailable FAWWAD, TILLMAN Referring Unavailable FAWWAD, [facility] Primary Care Unavailable JANIA GUTIERREZ Attending Unavailable FAWWAD, TILLMAN Referring Unavailable FAWWAD, [facility] Primary Care Unavailable [facility] Referring Unavailable FAWWAD, [facility] Primary Care Unavailable JANIA GUTIERREZ Attending Unavailable FAWWAD, TILLMAN Referring Unavailable FAWWAD, [facility] Primary Care Unavailable Allergies Allergy Classification Reported Allergen(s) Allergy Type Date of Onset Reaction(s) Facility (1 source) No Known Medication Allergies; Translations: [No Known Medication Allergies] Propensity to adverse reactions (disorder) [facility] Rep[facility] Medications Current Medications Medication Drug Class(es) Dates Sig (Normalized) Sig (Original) 8 hr acetaminophen 650 mg extended release oral tablet (4 sources) Start: 06-25-2024 take 1950 mg by mouth every twelve hours Acetaminophen Active 1950 MG PO Every 12 hours October 15, 2023 12:00am take 2 tablets by mo [facility] every eight hours as needed Acetaminophen ER [...] (1 source) Vitamin D Start: 10-15-2023 take 32059 [IU] by mouth every week Cholecalciferol (Vitamin D3) Active 46288 UNIT PO every week October 15, 2023 [...] Start: 09-26-2021 take 2 tablets by mo [facility] once daily Farxiga 5 mg oral tablet [...] by mouth every week Ergocalciferol 1.25 MG (82406 UT) 1 capsule Orally Q week for [...] Start: 10-10-2021 take 1 capsule by mo [facility] once daily omeprazole 20 mg Cap-DR 20 mg = 1 cap(s), Oral, Daily, Refills(s) 0 Start Date: 10/10/21 Status: Ordered pramipexole dihydrochloride 1 mg oral tablet (8 sources) Nonergot Dopamine Agonist Start: 10-15-2023 take 1 mg by mouth once daily at bedtime Pramipexole Active 1 MG PO Daily at bedtime October 15, 2023 12:00am Start: 05-04-2020 take 1 tablet by [facility] at bedtime pramipexole 1 mg [...] 03-28-2022 Episodic Other aftercare (1 source) Other mcfp (current) drug therapy; Translations: [OTH INTERNAL AFFAIRS INVESTIGATOR CURRENT DRUG THERAPY] Onset: 01-04-2022 Episodic Other aftercare (1 source) assisted (current) use of aspirin; Translations: [INTERNAL AFFAIRS INVESTIGATOR CURRENT USE OF ASPIRIN] Onset: 01-04-2022 Episodic Other aftercare (1 source) termination clerk (current) use of insulin; Translations: [ASSISTED CURRENT USE OF INSULIN] Onset: 01-04-2022 Episodic Other aftercare (1 source) assisted (current) use of anticoagulants; Translations: [INTERNAL AFFAIRS INVESTIGATOR CURRNT USE ANTICOAGULANTS] Onset: 11-22-2021 Episodic Other [...] [address] Milton's office. [facility] [address] Dr. Milton from [facility] is requesting clearance for shoulder arthroscopy scheduled for 10/31/2023. Please advise. Thanks. [facility] HBV surface Ab IA Qnon 06-13 Anti HBs quant. <8.00 Normal [facility] Comment on above: Result Comment: Vacc inated: >=12mIU/mL, Positive (Immune) Unvaccinated: <8mIU/mL, Negative (Not Immune) 8-11.99 mIU/mL: Indeterminate, (Considered Not Immune) Performed By: #### 5 193-8, 8014-3, 6476-6, 49174-2, 01290-3 #### [facility] ([id number]) [address] [place] [address], [address] [place] [address] MeV IgG IA Ql (S)on 06-13-19 24 RUBEOLA AB SCREEN 2.2 AI High <0.9 [facility] Comment on above: Result Comment: POSI TIVE: Antibody(IgG) detected. Indicates previous exposure to rubeola virus and immunity. Performed By: #### 5 193-8, 8014-3, 6476-6, 15020-3, 43574-0 #### [facility] ([id number]) [address] [place] [address], [address] [place] [address] MuV IgG IA Ql (S)on 06-13-19 24 MUMPS VIRUS IgG 4.0 AI High <0.9 [facility] Comment on above: Result Comment: Interpretation-------- <0.9 Negative 0.9 - 1.0 Equivocal >1.0 Positive Performed By: #### 5 193-8, 8014-3, 6476-6, 80126-6, 16163-5 #### [facility] ([id number]) [address] [place] [address], [address] [place] [address] Rubella virus IgG Qn (S)on 0 06-13-2023 RUBELLA IgG 104 IU/mL Normal [facility] Comment on above: Result Comment: Interpretation-------- <8 NEGATIVE-considered Not Immune 8-9 EQUIVOCAL-consider retesting with new specimen >9 POSITIVE-considered Immune Performed By: #### 5 193-8, 8014-3, 6476-6, 33155-9, 61347-1 #### [facility] ([id number]) [address] [place] [address], [address] [place] [address] VZV IgG IA Ql (S)on 06-13-19 VARICELLA IgG 1.6 AI High <0.9 [facility] Comment on above: Result Comment: Interpretation-------- <0.9 Negative 0.9 - 1.0 Equivocal >1.0 Positive Performed By: #### 5 193-8, 8014-3, 6476-6, 00300-6, 78132-2 #### [facility] ([id number]) [address] [place] [address], [address] [place] [address] Office Visiton 05-24-2023 Follow-up visit [id number] Jessica Vila 1965 F Date Provider Department [place] 05/24/2023 KATHERYN MARTINEZ ROLY [facility] Family History Problem Relation Age of Onset Breast cancer Mother Family Status - Relation Status Age at Mother Level of Service:36139 [place] OFFICE/OUTPATIENT ESTABLISHED MOD MDM 30 MIN Normal [facility] Office Visiton 12-07-2022 Follow-up visit [id number] Jessica Vila 1965 F Date Provider Department Center 12/07/2022 AmayaMARISELLONGKATHERYN [facility] Family History Problem Relation Age of Onset Breast cancer Mother Family Status - Relation Status Age at Mother Level of Service:09592 [place] OFFICE/OUTPATIENT ESTABLISHED LOW MDM 20-29 MIN Reason for Visit and Comments: Follow-up [150708] - 6 MONTH FOLLOW UP Normal [facility] PTH INTACTon 08-08-2022 PTH, Intact 34 pg/mL Normal 15-65 [facility] Comment on above: Performed By: #### C BCMAN #### [facility] [address] [place] [address] Dr. Kelsie Dominguez HEMOGRAM AND PLATELon 2022 Hematocrit (Bld) [Volume fraction] 38.1 % Normal 36.0-48.0 [facility] Comment on above: Performed By: #### H H #### [facility] [address] [place] [address] Dr. Kelsie Dominguez Hemoglobin (Bld) [Mass/Vol] 12.5 g/dL Normal 12.0-16.0 [facility] Comment on above: Performed By: #### H H #### [facility] [address] [place] [address] Dr. Kelsie Dominguez MCH (RBC) [Entitic mass] 29.8 pg Normal 26.7-34.0 [facility] Comment on above: Performed By: #### H H #### [facility] [address] [place] [address] Dr. Kelsie Dominguez MCHC (RBC) [Mass/Vol] 32.8 g/dL Normal 29.9-35.2 [facility] Comment on above: Performed By: #### H H #### [facility] [address] [place] [address] Dr. Kelsie Dominguez MCV (RBC) [Entitic vol] 90.9 fL Normal 81.0-99.0 [facility] Comment on above: Performed By: #### H H #### [facility] [address] [place] [address] Dr. Kelsie Dominguez PLT 207 103/ul Normal 150-450 [facility] Comment on above: Performed By: #### H H #### [facility] [address] [address] [address] Kelsie Dominguez RBC 4.19 106/ul Critically low 4.20-5.40 [facility] Comment on above: Performed By: #### H H #### [facility] [address] [place] [address] Dr. Kelsie Dominguez WBC 5.1 103/ul Normal 4.0-11.0 [facility] Comment on above: Performed By: #### H H #### [facility] [address] [place] [address] Dr. Kelsie Dominguez MAGNESIUMon 08-07-2022 Magnesium [Mass/Vol] 1.9 mg/dL Normal 1.8-2.4 [facility] Comment on above: Performed By: #### H H #### [facility] [address] [place] [address] Dr. Kelsie Dominguez RENAL FUNCTION PANELon 08-07 Albumin [Mass/Vol] 3.0 g/dL Critically low 3.4-5.0 [facility] Comment on above: Performed By: #### H H #### [facility] [address] [place] [address] Dr. Kelsie Dominguez Calcium [Mass/Vol] 9.1 mg/dL Normal 8.5-10.1 [facility] Comment on above: Performed By: #### H H #### [facility] [address] [place] [address] Dr. Kelsie Dominguez Chloride [Moles/Vol] 103 mmol/L Normal 98-107 [facility] Comment on above: Performed By: #### H H #### [facility] [address] [place] [address] Dr. Kelsie Dominguez CO2 [Moles/Vol] 24.9 mmol/L Normal 21.0-32.0 [facility] Comment on above: Performed By: #### H H #### [facility] [address] [place] [address] Dr. Kelsie Dominguez Creatinine [Mass/Vol] 1.75 mg/dL Critically high 0.55-1.02 [facility] Comment on above: Performed By: #### H H #### [facility] [address] [address] [address] Kelsie Dominguez EGFR-AF HAITIAN 36 mL/min/1.73m2 Critically low >=60 [facility] Comment on above: Performed By: #### H H #### [facility] [address] [address] [address] Kelsie Dominguez EGFR-NON AF HAITIAN 30 mL/min/1.73m2 Critically low >=60 [facility] Comment on above: Performed By: #### H H #### [facility] [address] [address] [address] Kelsie Dominguez Glucose [Mass/Vol] 222 mg/dL Critically high 74-106 [facility] Comment on above: Performed By: #### H H #### [facility] [address] [address] [address] Kelsie Dominguez Phosphate [Mass/Vol] 3.6 mg/dL Normal 2.6-4.7 [facility] Comment on above: Performed By: #### H H #### [facility] [address] [address] [address] Kelsie Dominguez Potassium [Moles/Vol] 3.6 mmol/L Normal 3.5-5.1 [facility] Comment on above: Performed By: #### H H #### [facility] [address] [address] [address] Kelsie Dominguez Sodium [Moles/Vol] 141 mmol/L Normal 136-145 [facility] Comment on above: Performed By: #### H H #### [facility] [address] [address] [address] Kelsie Dominguez Urea nitrogen [Mass/Vol] 31.0 mg/dL Critically high 7.0-18.0 [facility] Comment on above: Performed By: #### H H #### [facility] [address] [address] [address] Kelsie Dominguez UA RANDOM W/MICROSCOPICon BACTERIA NONE SEEN Normal NONE SEEN [facility] Comment on above: Performed By: #### V ITAD #### [facility] [address] [place] [address] Dr. Kelsie Dominguez Bilirubin Ql (U) Negative Normal NEGATIVE [facility] Comment on above: Performed By: #### V ITAD #### [facility] [address] [place] [address] Dr. Kelsie Dominguez CAST NONE SEEN Normal NONE SEEN [facility] Comment on above: Performed By: #### V ITAD #### [facility] [address] [place] [address] Dr. Kelsie Dominguez Clarity (U) CLEAR Normal CLEAR [facility] Comment on above: Performed By: #### V ITAD #### [facility] [address] [place] [address] Dr. Kelsie Dominguez Color (U) LT. YELLOW Normal YELLOW [facility] Comment on above: Performed By: #### V ITAD #### [facility] [address] [place] [address] Dr. Kelsie Dominguez Crystals LM Nom (Urine sed) NONE SEEN Normal NONE SEEN [facility] Comment on above: Performed By: #### V ITAD #### [facility] [address] [place] [address] Dr. Kelsie Dominguez Epithelial cells LM Ql (Urine sed) RARE Normal NONE SEEN /RARE [facility] Comment on above: Performed By: #### V ITAD #### [facility] [address] [place] [address] Dr. Kelsie Dominguez Glucose Ql (U) 250 mg/dl Abnormal NEGATIVE [facility] Comment on above: Performed By: #### V ITAD #### [facility] [address] [place] [address] Dr. Kelsie Dominguez Hemoglobin Ql (U) SMALL Abnormal NEGATIVE [facility] Comment on above: Performed By: #### V ITAD #### [facility] [address] [place] [address] Dr. Kelsie Dominguez Ketones Ql (U) Negative Normal NEGATIVE [facility] Comment on above: Performed By: #### V ITAD #### [facility] [address] [place] [address] Dr. Kelsie Dominguez LEUKOCYTES TRACE Abnormal NEGATIVE [facility] Comment on above: Performed By: #### V ITAD #### [facility] [address] [place] [address] Dr. Kelsie Dominguez MUCOUS TRACE Abnormal NONE SEEN [facility] Comment on above: Performed By: #### V ITAD #### [facility] [address] [place] [address] Dr. Kelsie Dominguez Nitrite Ql (U) Negative Normal NEGATIVE [facility] Comment on above: Performed By: #### V ITAD #### [facility] [address] [place] [address] Dr. Kelsie Dominguez pH (U) 6.0 [pH] Normal 5-9 [facility] Comment on above: Performed By: #### V ITAD #### [facility] [address] [place] [address] Dr. Kelsie Dominguez RBC 5-10 Abnormal 0-2 [facility] Comment on above: Performed By: #### V ITAD #### [facility] [address] [place] [address] Dr. Kelsie Dominguez SPEC GRAVITY 1.010 Normal 1.005-<=1.02 5 [facility] Comment on above: Performed By: #### V ITAD #### [facility] [address] [place] [address] Dr. Kelsie Dominguez UA PROTEIN Negative Normal NEGATIVE/ TRACE [facility] Comment on above: Performed By: #### V ITAD #### [facility] [address] [place] [address] Dr. Kelsie Dominguez Urobilinogen Qn (U) 0.2 {Miguel'U}/dL Normal 0.2 - 1. 0 [facility] Comment on above: Performed By: #### V ITAD #### [facility] [address] [place] [address] Dr. Kelsie Dominguez WBC 10-20 Abnormal NONE SEEN [facility] Comment on above: Performed By: #### V ITAD #### [facility] [address] [place] [address] Dr. Kelsie Dominguez URIC ACID SERUMon 08-07-2022 Urate [Mass/Vol] 10.2 mg/dL Critically high 2.6-6.0 [facility] Comment on above: Performed By: #### H H #### [facility] [address] [place] [address] Dr. Kelsie Dominguez URINE T PROTEIN CREAT RATIOo n 08-07-2022 Protein (U) [Mass/Vol] 25.3 mg/dL Critically high <=12.0 [facility] Comment on above: Performed By: #### V ITAD #### [facility] [address] [place] [address] Dr. Kelsie Dominguez UR PROT CREAT RAT 0.21 Normal [facility] Comment on above: Performed By: #### V ITAD #### [facility] [address] [place] [address] Dr. Kelsie Dominguez URINE CREAT 121.04 mg/dL Normal 20.00-300.00 [facility] Comment on above: Performed By: #### V ITAD #### [facility] [address] [place] [address] Dr. Kelsie Dominguez VITAMIN D 25 OHon 08-07-2022 VIT D 25-OH 30.9 ng/mL Normal [facility] Comment on above: Performed By: #### V ITAD #### [facility] [address] [place] [address] Dr. Kelsie Dominguez VIT D RANGES SEE BELOW Normal [facility] Comment on above: Result Comment: <20 ng/mL Vit D deficient 20 - <30 ng/mL Vit D insufficient 30 - 100 ng/mL Vit D sufficient >100 ng/mL Potential Toxicity Performed By: #### V ITAD #### [facility] [address] [place] [address] Dr. Kelsie Dominguez MG MAMM SCREEN 3D AARON CADon 02-14-2022 MG MAMM SCREEN 3D AARON CAD Patient: RAQUEL VILA Exam Date: 02/14/2022 : 1965 Gender:F Ordering : DR. SHREYAS LONG M.D. Admission #: [id number] Family : Order #: [id number] CLICK HERE TO VIEW EXAM RADIOLOGY REPORT [...] unknown cancer at age 72. LOCATION: [facility] BREAST COMPOSITION: Scattered areas fibroglandular density. [...] Dunn MD on 02/14/2022 at 11:22 Normal [facility] XR DEXA BONE DENSITYon 02-14 XR [...] by: AMARA DAVISON Date: 2022-02-14 21:14 Normal [facility] PTH INTACTon 02-02-2022 PTH, Intact 23 pg/mL Normal 15-65 [facility] Comment on above: Performed By: #### C LIBERTAD #### [facility] [address] [place] [address] Dr. Kelsie Dominguez FERRITINon 01-31-2022 Ferritin [Mass/Vol] 96.0 ng/mL Normal 8.0-252.0 [facility] Comment on above: Performed By: #### C LIBERTAD #### [facility] [address] [place] [address] Dr. Kelsie Dominguez HEMOGRAM AND PLATELon 2021 Hematocrit (Bld) [Volume fraction] 38.7 % Normal 36.0-48.0 [facility] Comment on above: Performed By: #### H H #### [facility] [address] [place] [address] Dr. Kelsie Dominguez Hemoglobin (Bld) [Mass/Vol] 12.4 g/dL Normal 12.0-16.0 [facility] Comment on above: Performed By: #### H H #### [facility] [address] [place] [address] Dr. Kelsie Dominguez MCH (RBC) [Entitic mass] 31.3 pg Normal 26.7-34.0 [facility] Comment on above: Performed By: #### H H #### [facility] [address] [place] [address] Dr. Kelsie Dominguez MCHC (RBC) [Mass/Vol] 32.0 g/dL Normal 29.9-35.2 [facility] Comment on above: Performed By: #### H H #### [facility] [address] [place] [address] Dr. Kelsie Dominguez MCV (RBC) [Entitic vol] 97.7 fL Normal 81.0-99.0 [facility] Comment on above: Performed By: #### H H #### [facility] [address] [place] [address] Dr. Kelsie Dominguez PLT 157 103/ul Normal 150-450 [facility] Comment on above: Performed By: #### H H #### [facility] [address] [place] [address] Dr. Kelsie Dominguez RBC 3.96 106/ul Critically low 4.20-5.40 [facility] Comment on above: Performed By: #### H H #### [facility] [address] [place] [address] Dr. Kelsie Dominguez WBC 6.8 103/ul Normal 4.0-11.0 [facility] Comment on above: Performed By: #### H H #### [facility] [address] [place] [address] Dr. Kelsie Dominguez IRON AND TIBCon 01-31-2022 % SATURATION 16.4 % Normal [facility] Comment on above: Performed By: #### C LIBERTAD #### [facility] [address] [place] [address] Dr. Kelsie Dominguez Iron [Mass/Vol] 44.0 ug/dL Critically low 50.0-170.0 [facility] Comment on above: Performed By: #### C LIBERTAD #### [facility] [address] [place] [address] Dr. Kelsie Dominguez TIBC DIRECT 268.0 ug/dL Normal 250.0-450.0 [facility] Comment on above: Performed By: #### C LIBERTAD #### [facility] [address] [place] [address] Dr. Kelsie Dominguez MAGNESIUMon 01-31-2022 Magnesium [Mass/Vol] 1.9 mg/dL Normal 1.8-2.4 [facility] Comment on above: Performed By: #### M Mary, RENAL, URIC #### [facility] [address] [place] [address] Dr. Kelsie Dominguez RENAL FUNCTION PANELon 01-31 Albumin [Mass/Vol] 3.3 g/dL Critically low 3.4-5.0 [facility] Comment on above: Performed By: #### M G, RENAL, URIC #### [facility] [address] [place] [address] Dr. Kelsie Dominguez Calcium [Mass/Vol] 9.3 mg/dL Normal 8.5-10.1 [facility] Comment on above: Performed By: #### M G, RENAL, URIC #### [facility] [address] [address] [address] Kelsie Dominguez Chloride [Moles/Vol] 110 mmol/L Critically high 98-107 [facility] Comment on above: Performed By: #### M G, RENAL, URIC #### [facility] [address] [place] [address] Dr. Kelsie Dominguez CO2 [Moles/Vol] 24.0 mmol/L Normal 21.0-32.0 [facility] Comment on above: Performed By: #### M G, RENAL, URIC #### [facility] [address] [place] [address] Dr. Kelsie Dominguez Creatinine [Mass/Vol] 1.37 mg/dL Critically high 0.55-1.02 [facility] Comment on above: Performed By: #### M G, RENAL, URIC #### [facility] [address] [place] [address] Dr. Kelsie Dominguez EGFR-AF HAITIAN 48 mL/min/1.73m2 Critically low >=60 [facility] Comment on above: Performed By: #### M G, RENAL, URIC #### [facility] [address] [place] [address] Dr. Kelsie Dominguez EGFR-NON AF HAITIAN 40 mL/min/1.73m2 Critically low >=60 [facility] Comment on above: Performed By: #### M G, RENAL, URIC #### [facility] [address] [place] [address] Dr. Kelsie Dominguez Glucose [Mass/Vol] 280 mg/dL Critically high 74-106 [facility] Comment on above: Performed By: #### M G, RENAL, URIC #### [facility] [address] [place] [address] Dr. Kelsie Dominguez Phosphate [Mass/Vol] 3.7 mg/dL Normal 2.6-4.7 [facility] Comment on above: Performed By: #### M G, RENAL, URIC #### [facility] [address] [place] [address] Dr. Kelsie Dominguez Potassium [Moles/Vol] 4.4 mmol/L Normal 3.5-5.1 [facility] Comment on above: Performed By: #### M G, RENAL, URIC #### [facility] [address] [place] [address] Dr. Kelsie Dominguez Sodium [Moles/Vol] 146 mmol/L Critically high 136-145 [facility] Comment on above: Performed By: #### M Mary, RENAL, URIC #### [facility] [address] [place] [address] Dr. Kelsie Dominguez Urea nitrogen [Mass/Vol] 36.0 mg/dL Critically high 7.0-18.0 [facility] Comment on above: Performed By: #### M Mary, RENAL, URIC #### [facility] [address] [place] [address] Dr. Kelsie Dominguez UA RANDOM W/MICROSCOPICon BACTERIA SMALL Abnormal NONE SEEN [facility] Comment on above: Performed By: #### V ITAD #### [facility] [address] [place] [address] Dr. Kelsie Dominguez Bilirubin Ql (U) Negative Normal NEGATIVE [facility] Comment on above: Performed By: #### V ITAD #### [facility] [address] [place] [address] Dr. Kelsie Dominguez CAST NONE SEEN Normal NONE SEEN [facility] Comment on above: Performed By: #### V ITAD #### [facility] [address] [place] [address] Dr. Kelsie Dominguez Clarity (U) CLEAR Normal CLEAR [facility] Comment on above: Performed By: #### V ITAD #### [facility] [address] [place] [address] Dr. Kelsie Dominguez Color (U) LT. YELLOW Normal YELLOW [facility] Comment on above: Performed By: #### V ITAD #### [facility] [address] [place] [address] Dr. Kelsie Dominguez Crystals LM Nom (Urine sed) NONE SEEN Normal NONE SEEN [facility] Comment on above: Performed By: #### V ITAD #### [facility] [address] [place] [address] Dr. Kelsie Dominguez Epithelial cells LM Ql (Urine sed) FEW Abnormal NONE SEEN /RARE [facility] Comment on above: Performed By: #### V ITAD #### [facility] [address] [place] [address] Dr. Kelsie Dominguez Glucose Ql (U) 500 mg/dl Abnormal NEGATIVE The [facility] Comment on above: Performed By: #### V ITAD #### [facility] [address] [place] [address] Dr. Kelsie Dominguez Hemoglobin Ql (U) LARGE Abnormal NEGATIVE The [facility] Comment on above: Performed By: #### V ITAD #### [facility] [address] [place] [address] Dr. Kelsie Dominguez Ketones Ql (U) Negative Normal NEGATIVE The [facility] Comment on above: Performed By: #### V ITAD #### [facility] [address] [place] [address] Dr. Kelsie Dominguez LEUKOCYTES SMALL Abnormal NEGATIVE [facility] Comment on above: Performed By: #### V ITAD #### [facility] [address] [place] [address] Dr. Kelsie Dominguez MUCOUS NONE SEEN Normal NONE SEEN [facility] Comment on above: Performed By: #### V ITAD #### [facility] [address] [place] [address] Dr. Kelsie Dominguez Nitrite Ql (U) Negative Normal NEGATIVE The [facility] Comment on above: Performed By: #### V ITAD #### [facility] [address] [place] [address] Dr. Kelsie Dominguez pH (U) 6.0 [pH] Normal 5-9 [facility] Comment on above: Performed By: #### V ITAD #### [facility] [address] [place] [address] Dr. Kelsie Dominguez RBC 20-50 Abnormal 0-2 [facility] Comment on above: Performed By: #### V ITAD #### [facility] [address] [place] [address] Dr. Kelsie Dominguez SPEC GRAVITY 1.020 Normal 1.005-<=1.02 5 [facility] Comment on above: Performed By: #### V ITAD #### [facility] [address] [place] [address] Dr. Kelsie Dominguez UA PROTEIN 30 mg/dl Abnormal NEGATIVE/ TRACE [facility] Comment on above: Performed By: #### V ITAD #### [facility] [address] [place] [address] Dr. Kelsie Dominguez Urobilinogen Qn (U) 0.2 {Miguel'U}/dL Normal 0.2 - 1. 0 [facility] Comment on above: Performed By: #### V ITAD #### [facility] [address] [place] [address] Dr. Kelsie Dominguez WBC 20-50 Abnormal NONE SEEN [facility] Comment on above: Performed By: #### V ITAD #### [facility] [address] [place] [address] Dr. Kelsie Dominguez URIC ACID SERUMon 01-31-2022 Urate [Mass/Vol] 9.4 mg/dL Critically high 2.6-6.0 [facility] Comment on above: Performed By: #### M G, RENAL, URIC #### [facility] [address] [place] [address] Dr. Kelsie Dominguez URINE T PROTEIN CREAT RATIOo n 01-31-2022 Protein (U) [Mass/Vol] 56.9 mg/dL Critically high <=12.0 [facility] Comment on above: Performed By: #### H H #### [facility] [address] [place] [address] Dr. Kelsie Dominguez UR PROT CREAT RAT 0.42 Normal The [facility] Comment on above: Performed By: #### H H #### [facility] [address] [place] [address] Dr. Kelsie Dominguez URINE CREAT 136.85 mg/dL Normal 20.00-300.00 The [facility] Comment on above: Performed By: #### H H #### [facility] [address] [place] [address] Dr. Kelsie Dominguez VITAMIN D 25 OHon 01-31-2022 VIT D 25-OH 32.0 ng/mL Normal [facility] Comment on above: Performed By: #### C LIBERTAD #### [facility] [address] [address] [address] Kelsie Dominguez VIT D RANGES SEE BELOW Normal [facility] Comment on above: Result Comment: <20 ng/mL Vit D deficient 20 - <30 ng/mL Vit D insufficient 30 - 100 ng/mL Vit D sufficient >100 ng/mL Potential Toxicity Performed By: #### C LIBERTAD #### [facility] [address] [address] [address] Kelsie Dominguez [place] [facility] [place] [facility] [place] January 11, 2022 RAQUEL VILA [address] [place] [address] RAQUEL VILA 1965 To Whom It May Concern, Please excuse above patient from work 01/10/2022 due to doctor office appointment. . Sincerely, Dr. Nalini Landers MD General Surgery [facility] Ambulatory Visit Summaryon 0 01-10-2022 [...] treatment for. Anticoagulated Left axillary abscess Normal [facility] General Surgery Office/Clini c Noteon 01-10-2022 [...] inactivated - Not Given Patient Refuses Normal [facility] Comment on above: Result Comment: Elec tronically Signed By: SHAHEED ARAIZA, Nalini Feng\Date and Time Signed: 01/10/22 17:59 EDT Pathology Noteon 01-04-2022 Pathology Note [id number]# 1.00CD:127 Normal [facility] Operative Reporton Operative Report [id number]#1 .00CD:127 Normal [facility] Consultation Noteon 12-27-19 Consultation Note [id number]#1 .00CD:127 Normal [facility] SARS-CoV-2 (COVID-19) RNA NA A+probe Ql (Resp)on 12-06-2021 SARS-CoV-2 (COVID-19) RNA SUZANNA+probe Ql (Unsp spec) Positive [email or web address] Other Physician Referralon 022 Physician Referral [id number] .00CD:127 Normal [facility] Lab Reportson 12-01-2021 Lab Reports [id number] .00CD:127 Normal [facility] BASIC METABOLIC PANELon Calcium [Mass/Vol] 8.7 mg/dL Normal 8.6-10.3 [facility] Comment on above: Order Comment: No: D o not add to previous draw Performed By: #### 8 4511 #### [facility] [address] [place] [address], [facility] Chloride [Moles/Vol] 104 mmol/L Normal 98-107 [facility] Comment on above: Order Comment: No: D o not add to previous draw Performed By: #### 8 4511 #### [facility] [address] [facility] [place] [place] [address], [place] CO2 [Moles/Vol] 27 mmol/L Normal 21-31 The [facility] Comment on above: Order Comment: No: D o not add to previous draw Performed By: #### 8 4511 #### [facility] [address] [place] [address], [place] Creatinine [Mass/Vol] 0.85 mg/dL Normal 0.60-1.20 [facility] Comment on above: Order Comment: No: D o not add to previous draw Performed By: #### 8 4511 #### [facility] [address] [place] [address], [facility] GFR/1.73 sq M.predicted among non-blacks MDRD (S/P/Bld) [Vol rate/Area] mL/min/{1.73_m2} Normal >60 The [facility] Comment on above: Order Comment: No: D o not add to previous draw Result Comment: The [facility]'s estimated glomerular filtration rate (eGFR) will [...] individuals. Performed By: #### 8 4511 #### [facility] [address] [place] [address], [place] Glucose [Mass/Vol] 150 mg/dL High 70-100 The [facility] Comment on above: Order Comment: No: D o not add to previous draw Performed By: #### 8 4511 #### [facility] [address] [place] [address], [place] Potassium [Moles/Vol] 4.3 mmol/L Normal 3.5-5.1 The [facility] Comment on above: Order Comment: No: D o not add to previous draw Performed By: #### 8 4511 #### [facility] [address] [place] [address], [place] Sodium [Moles/Vol] 139 mmol/L Normal 136-145 [facility] Comment on above: Order Comment: No: D o not add to previous draw Performed By: #### 8 4511 #### [facility] [address] [place] [address], [place] Urea nitrogen [Mass/Vol] 11 mg/dL Normal 7-25 The [facility] Comment on above: Order Comment: No: D o not add to previous draw Performed By: #### 8 4511 #### [facility] [address] [place] [address], [place] POC GLUCOSE LABon 11-24-2021 Glucose [Mass/Vol] 176 mg/dL High 70-100 [facility] Comment on above: Performed By: #### 8 5499 #### [facility] [address] [place] [address], [place] Glucose [Mass/Vol] 141 mg/dL High 70-100 [facility] Comment on above: Performed By: #### 8 5499 #### [facility] [address] [place] [address], [place] Glucose [Mass/Vol] 147 mg/dL High 70-100 [facility] Comment on above: Performed By: #### 8 5499 #### [facility] [address] [place] [address], [place] BASIC METABOLIC PANELon Calcium [Mass/Vol] 8.2 mg/dL Low 8.6-10.3 [facility] Comment on above: Order Comment: RESUL TS CHECKED AND CALLED. ACCURATELY READ BACK BY Jina TAVAREZ ED RN Performed By: #### 8 4511 #### [facility] [address] [place] [address], [place] Chloride [Moles/Vol] 106 mmol/L Normal 98-107 The [facility] Comment on above: Order Comment: RESUL TS CHECKED AND CALLED. ACCURATELY READ BACK BY Jina TAVAREZ ED RN Performed By: #### 8 4511 #### [facility] [address] [place] [address], [place] CO2 [Moles/Vol] 29 mmol/L Normal 21-31 The [facility] Comment on above: Order Comment: RESUL TS CHECKED AND CALLED. ACCURATELY READ BACK BY Jina TAVAREZ ED, RN Performed By: #### 8 4511 #### [facility] [address] [place] [address], [facility] Creatinine [Mass/Vol] 1.04 mg/dL Normal 0.60-1.20 The [facility] Comment on above: Order Comment: RESUL TS CHECKED AND CALLED. ACCURATELY READ BACK BY Jina TAVAREZ ED RN Performed By: #### 8 4511 #### [facility] [address] [place] [address], [facility] GFR/1.73 sq M.predicted among non-blacks MDRD (S/P/Bld) [Vol rate/Area] mL/min/{1.73_m2} Normal >60 The [facility] Comment on above: Order Comment: RESUL TS CHECKED AND CALLED. ACCURATELY READ BACK BY Jina TAVAREZ ED, RN Result Comment: The [facility]'s estimated glomerular filtration rate (eGFR) will [...] individuals. Performed By: #### 8 4511 #### [facility] [address] [place] [address], [facility] Glucose [Mass/Vol] 124 mg/dL High 70-100 [facility] Comment on above: Order Comment: RESUL TS CHECKED AND CALLED. ACCURATELY READ BACK BY Jina TAVAREZ ED, RN Performed By: #### 8 4511 #### [facility] [address] [place] [address], [place] Potassium [Moles/Vol] 3.3 mmol/L Low 3.5-5.1 The [facility] Comment on above: Order Comment: RESUL TS CHECKED AND CALLED. ACCURATELY READ BACK BY Jina TAVAREZ ED RN Performed By: #### 8 4511 #### [facility] [address] [facility] [place] [address], [facility] Sodium [Moles/Vol] 145 mmol/L Normal 136-145 The [facility] Comment on above: Order Comment: RESUL TS CHECKED AND CALLED. ACCURATELY READ BACK BY Jina TAVAREZ ED RN Performed By: #### 8 4511 #### [facility] [address] [facility] [address] Urea nitrogen [Mass/Vol] 15 mg/dL Normal 7-25 The [facility] Comment on above: Order Comment: RESUL TS CHECKED AND CALLED. ACCURATELY READ BACK BY Jina TAVAREZ ED RN Performed By: #### 8 4511 #### [facility] [address] [place] [address], [facility] CBC W/DIFFon 11-23-2021 ABS IMM GRANS 0.0 10*3/uL Normal 0.0-0.2 The [facility] Comment on above: Order Comment: No: D o not add to previous draw Performed By: #### 8 4511 #### [facility] [address] [facility] [place] [address], [facility] ABS NEUTROPHILS 4.5 10*3/uL Normal 1.6-7.6 The [facility] Comment on above: Order Comment: No: D o not add to previous draw Performed By: #### 8 4511 #### [facility] [address] [facility] [place] [address], [facility] Basophils (Bld) [#/Vol] 0.0 10*3/uL Normal 0.0-0.2 The [facility] Comment on above: Order Comment: No: D o not add to previous draw Performed By: #### 8 4511 #### [facility] [address] [place] [id number], [facility] Basophils/100 WBC (Bld) 0.6 % Normal 0.0-1.0 The [facility] Comment on above: Order Comment: No: D o not add to previous draw Performed By: #### 8 4511 #### [facility] [address] [place] [address], [facility] Eosinophils (Bld) [#/Vol] 0.1 10*3/uL Normal 0.0-0.5 The [facility] Comment on above: Order Comment: No: D o not add to previous draw Performed By: #### 8 4511 #### [facility] [address] [place] [address], [facility] Eosinophils/100 WBC (Bld) 1.7 % Normal 0.0-6.0 The [facility] Comment on above: Order Comment: No: D o not add to previous draw Performed By: #### 8 4511 #### [facility] [address] [facility] [place] [address], [facility] Erythrocyte distribution width (RBC) [Ratio] 14.4 % Normal 11.5-15.0 The [facility] Comment on above: Order Comment: No: D o not add to previous draw Performed By: #### 8 4511 #### [facility] [address] [place] [address], [facility] Hematocrit (Bld) [Volume fraction] 32.1 % Low 36.0-45.0 The [facility] Comment on above: Order Comment: No: D o not add to previous draw Performed By: #### 8 4511 #### [facility] [address] [facility] [place] [address], [facility] Hemoglobin (Bld) [Mass/Vol] 10.5 g/dL Low 12.0-15.0 The [facility] Comment on above: Order Comment: No: D o not add to previous draw Performed By: #### 8 4511 #### [facility] [address] [place] [address], [facility] IMMATURE GRANS 0.5 % Normal 0.0-1.0 The [facility] Comment on above: Order Comment: No: D o not add to previous draw Performed By: #### 8 4511 #### [facility] [address] [place] [address], [facility] Lymphocytes (Bld) [#/Vol] 1.1 10*3/uL Low 1.2-4.0 The [facility] Comment on above: Order Comment: No: D o not add to previous draw Performed By: #### 8 4511 #### [facility] [address] [place] [id number], [facility] Lymphocytes/100 WBC (Bld) 17.4 % Low 20.0-45.0 The [facility] Comment on above: Order Comment: No: D o not add to previous draw Performed By: #### 8 4511 #### [facility] [address] [facility] [place] [id number], [facility] MCH (RBC) [Entitic mass] 31.8 pg Normal 27.0-33.0 The [facility] Comment on above: Order Comment: No: D o not add to previous draw Performed By: #### 8 4511 #### [facility] [address] [facility] [place] [id number], [facility] MCHC (RBC) [Mass/Vol] 32.7 g/dL Normal 32.0-35.0 The [facility] Comment on above: Order Comment: No: D o not add to previous draw Performed By: #### 8 4511 #### [facility] [address] [place] [address], [facility] MCV (RBC) [Entitic vol] 97.3 fL Normal 82.0-98.0 The [facility] Comment on above: Order Comment: No: D o not add to previous draw Performed By: #### 8 4511 #### [facility] [address] [place] [id number], [facility] Monocytes (Bld) [#/Vol] 0.7 10*3/uL Normal 0.1-1.0 The [facility] Comment on above: Order Comment: No: D o not add to previous draw Performed By: #### 8 4511 #### [facility] [address] [place] [address], [place] MONOS 10.5 % Normal 5.0-12.0 The [facility] Comment on above: Order Comment: No: D o not add to previous draw Performed By: #### 8 4511 #### [facility] [address] [place] [address], [place] Neutrophils/100 WBC (Bld) 69.3 % Normal 40.0-72.0 The [facility] Comment on above: Order Comment: No: D o not add to previous draw Performed By: #### 8 4511 #### [facility] [address] [place] [address], [place] Nucleated RBC/100 WBC (Bld) [Ratio] 0 % Normal 0-0 The [facility] Comment on above: Order Comment: No: D o not add to previous draw Performed By: #### 8 4511 #### [facility] [address] [place] [address], [place] PLAT CNT 146 10*3/uL Low 150-[address] [facility] Comment on above: Order Comment: No: D o not add to previous draw Performed By: #### 8 4511 #### [facility] [address] [place] [address], [place] RBC (Bld) [#/Vol] 3.30 10*6/uL Low 3.80-5.00 The [facility] Comment on above: Order Comment: No: D o not add to previous draw Performed By: #### 8 4511 #### [facility] [address] [place] [address], [place] WBC (Bld) [#/Vol] 6.48 10*3/uL Normal 4.00-10.60 The [facility] Comment on above: Order Comment: No: D o not add to previous draw Performed By: #### 8 4511 #### [facility] [address] [place] [address], [facility] MAGNESIUM BLOODon 11-23-2021 Magnesium [Mass/Vol] 1.8 mg/dL Low 1.9-2.7 The [facility] Comment on above: Order Comment: RESUL TS CHECKED AND CALLED. ACCURATELY READ BACK BY Jina TAVAREZ ED, RN Performed By: #### 8 4511 #### [facility] [address] [facility] [place] [place] [address], [facility] POC GLUCOSE LABon 11-23-2021 Glucose [Mass/Vol] 175 mg/dL High 70-100 The [facility] Comment on above: Performed By: #### 8 5499 ####[facility] [place] [place] [address], [place] Glucose [Mass/Vol] 148 mg/dL High 70-100 The [facility] Comment on above: Performed By: #### 8 4511 #### [facility] [address] [facility] [place] [place] [address], [place] Glucose [Mass/Vol] 115 mg/dL High 70-100 The [facility] Comment on above: Performed By: #### 8 5499 #### [facility] [address] [facility] [place] [place] [address], [place] Glucose [Mass/Vol] 123 mg/dL High 70-100 The [facility] Comment on above: Performed By: #### 8 5499 #### [facility] [address] [facility] [place] [place] [address], [place] PORTABLE CHEST 1 VIEWon 08-0 PORTABLE CHEST 1 VIEW [facility] Department of Radiology [address] [place] [id number] Patient Name: RAQUEL VILA : 1965 Sex: F Age: Race: White Pt. Location: [place] [address] Patient Status: I Ordered Date: 11/23/2021 12:10:00 [...] process Electronically signed: Maggie Lynne. Transcribed by: [email or web address], User Resident: Electronically Signed by: MAGGIE LYNNE @ 11/23/2021 01:05 PM Normal The [facility] Comment on above: Order Comment: Atele ctasis ARTERIAL BLOOD GAS WITH ICAo n 11-22-2021 BASE EXCESS 2 mmol/L Normal -2-[address] [facility] Comment on above: Performed By: #### 8 4511 #### [facility] [address] [place] [address], [facility] DELIVERY SYSTEMS VENTILATOR Normal The [facility] Comment on above: Performed By: #### 8 4511 #### [facility] [address] [place] [address], [facility] FIO2 40 % Normal The [facility] Comment on above: Performed By: #### 8 4511 #### [facility] [address] [place] [address], [facility] HCO3 (Bld) [Moles/Vol] 27 mmol/L Normal 21-28 The [facility] Comment on above: Performed By: #### 8 4511 #### [facility] [address] [place] [address], [facility] IONIZED CALCIUM 1.16 mmol/L Normal 1.13-1.32 The [facility] Comment on above: Performed By: #### 8 4511 #### [facility] [address] [place] [address], [facility] MIN VOLUME 8.1 Normal The [facility] Comment on above: Performed By: #### 8 4511 #### [facility] [address] [place] [address], [facility] MODALITY AC-ASSIST CONTROL Normal The [facility] Comment on above: Performed By: #### 8 4511 #### [facility] [address] [place] [address], [facility] Oxygen (Bld) [Partial pressure] 85 mm[Hg] Normal 83-108 The [facility] Comment on above: Performed By: #### 8 4511 #### [facility] [address] [place] [address], [place] Oxygen saturation in Blood 97.0 % Normal 94.0-97.0 The [facility] Comment on above: Performed By: #### 8 4511 #### [facility] [address] [place] [address], [facility] PCO2 40 mmHg Normal 35-45 The [facility] Comment on above: Performed By: #### 8 4511 #### [facility] [address] [place] [address], [place] PEEP 8.0 CMH20 Normal [facility] Comment on above: Performed By: #### 8 4511 #### [facility] [address] [place] [address], [place] PF RATIO 215 mmHg Normal [facility] Comment on above: Performed By: #### 8 4511 #### [facility] [address] [place] [address], [place] pH (Bld) 7.43 [pH] Normal 7.35-7.45 [facility] Comment on above: Performed By: #### 8 4511 #### [facility] [address] [place] [address], [place] Respiratory rate 18 /min Normal [facility] Comment on above: Performed By: #### 8 4511 #### [facility] [address] [place] [address], [place] TIDAL VOLUME (VT) CC 450 Normal [facility] Comment on above: Performed By: #### 8 4511 #### [facility] [address] [place] [address], [place] CBC COMPLETE BLOOD COUNTon 0 - Erythrocyte distribution width (RBC) [Ratio] 14.6 % Normal 11.5-15.0 [facility] Comment on above: Order Comment: No: D o not add to previous draw Performed By: #### 8 4511 #### [facility] [address] [place] [address], [place] Hematocrit (Bld) [Volume fraction] 32.0 % Low 36.0-45.0 [facility] Comment on above: Order Comment: No: D o not add to previous draw Performed By: #### 8 4511 #### [facility] [address] [place] [address], [facility] Hemoglobin (Bld) [Mass/Vol] 10.6 g/dL Low 12.0-15.0 The [facility] Comment on above: Order Comment: No: D o not add to previous draw Performed By: #### 8 4511 #### [facility] [address] [place] [address], [facility] MCH (RBC) [Entitic mass] 31.6 pg Normal 27.0-33.0 The [facility] Comment on above: Order Comment: No: D o not add to previous draw Performed By: #### 8 4511 #### [facility] [address] [facility] [place] [address], [facility] MCHC (RBC) [Mass/Vol] 33.1 g/dL Normal 32.0-35.0 The [facility] Comment on above: Order Comment: No: D o not add to previous draw Performed By: #### 8 4511 #### [facility] [address] [facility] [place] [address], [facility] MCV (RBC) [Entitic vol] 95.5 fL Normal 82.0-98.0 The [facility] Comment on above: Order Comment: No: D o not add to previous draw Performed By: #### 8 4511 #### [facility] [address] [facility] [place] [address], [facility] Nucleated RBC/100 WBC (Bld) [Ratio] 0 % Normal 0-0 The [facility] Comment on above: Order Comment: No: D o not add to previous draw Performed By: #### 8 4511 #### [facility] [address] [facility]. [place] [id number], [facility] PLAT CNT 147 10*3/uL Low 150-[address] [facility] Comment on above: Order Comment: No: D o not add to previous draw Performed By: #### 8 4511 #### [facility] [address] [facility] [place] [address], [facility] RBC (Bld) [#/Vol] 3.35 10*6/uL Low 3.80-5.00 The [facility] Comment on above: Order Comment: No: D o not add to previous draw Performed By: #### 8 4511 #### [facility] [address] [place] [address], [place] WBC (Bld) [#/Vol] 7.77 10*3/uL Normal 4.00-10.60 The [facility] Comment on above: Order Comment: No: D o not add to previous draw Performed By: #### 8 4511 #### [facility] [address] [place] [address], [facility] COMP METABOLIC PANELon 11-22 Albumin [Mass/Vol] 3.4 g/dL Low 3.5-5.7 The [facility] Comment on above: Order Comment: No: D o not add to previous draw Performed By: #### 8 4511 #### [facility] [address] [place] [address], [place] ALKALINE PHOSPH 134 IU/L High 34-104 The [facility] Comment on above: Order Comment: No: D o not add to previous draw Performed By: #### 8 4511 #### [facility] [address] [place] [address], [place] ALT [Catalytic activity/Vol] 400 U/L Critically high 7-52 The [facility] Comment on above: Order Comment: No: D o not add to previous draw Performed By: #### 8 4511 #### [facility] [address] [place] [address], [place] AST [Catalytic activity/Vol] 306 U/L High 13-39 The [facility] Comment on above: Order Comment: No: D o not add to previous draw Performed By: #### 8 4511 #### [facility] [address] [place] [address], [place] Bilirubin [Mass/Vol] 0.4 mg/dL Normal 0.3-1.0 The [facility] Comment on above: Order Comment: No: D o not add to previous draw Performed By: #### 8 4511 #### [facility] [address] [place] [address], [place] Calcium [Mass/Vol] 8.4 mg/dL Low 8.6-10.3 The [facility] Comment on above: Order Comment: No: D o not add to previous draw Performed By: #### 8 4511 #### [facility] [address] [place] [address], [place] Chloride [Moles/Vol] 109 mmol/L High 98-107 The [facility] Comment on above: Order Comment: No: D o not add to previous draw Performed By: #### 8 4511 #### [facility] [address] [place] [address], [place] CO2 [Moles/Vol] 25 mmol/L Normal 21-31 The [facility] Comment on above: Order Comment: No: D o not add to previous draw Performed By: #### 8 4511 #### [facility] [address] [place] [address], [place] Creatinine [Mass/Vol] 1.34 mg/dL High 0.60-1.20 The [facility] Comment on above: Order Comment: No: D o not add to previous draw Performed By: #### 8 4511 #### [facility] [address] [place] [address], [place] EGFR 47 ml/min/1.73sq m Abnormal >60 The [facility] Comment on above: Order Comment: No: D o not add to previous draw Result Comment: The [facility]'s estimated glomerular filtration rate (eGFR) will [...] individuals. Performed By: #### 8 4511 #### [facility] [address] [place] [address], [place] Glucose [Mass/Vol] 100 mg/dL Normal 70-100 The [facility] Comment on above: Order Comment: No: D o not add to previous draw Performed By: #### 8 4511 #### [facility] [address] [place] [address], [place] Potassium [Moles/Vol] 3.2 mmol/L Low 3.5-5.1 The [facility] Comment on above: Order Comment: No: D o not add to previous draw Performed By: #### 8 4511 #### [facility] [address] [place] [address], [place] Protein [Mass/Vol] 5.5 g/dL Low 6.0-8.3 The [facility] Comment on above: Order Comment: No: D o not add to previous draw Performed By: #### 8 4511 #### [facility] [address] [place] [address], [place] Sodium [Moles/Vol] 144 mmol/L Normal 136-145 The [facility] Comment on above: Order Comment: No: D o not add to previous draw Performed By: #### 8 4511 #### [facility] [address] [place] [address], [place] Urea nitrogen [Mass/Vol] 21 mg/dL Normal 7-25 The [facility] Comment on above: Order Comment: No: D o not add to previous draw Performed By: #### 8 4511 #### [facility] [address] [place] [address], [place] MAGNESIUM BLOODon 11-22-2021 Magnesium [Mass/Vol] 1.9 mg/dL Normal 1.9-2.7 The [facility] Comment on above: Order Comment: No: D o not add to previous draw Performed By: #### 8 4511 #### [facility] [address] [place] [address], [facility] PHOSPHORUS BLOODon 2 Phosphate [Mass/Vol] 3.3 mg/dL Normal 2.5-5.0 The [facility] Comment on above: Order Comment: No: D o not add to previous draw Performed By: #### 8 4511 #### [facility] [address] [place] [address], [facility] POC GLUCOSE LABon 11-22-2021 Glucose [Mass/Vol] 140 mg/dL High 70-100 [facility] above: Performed By: #### 8 5499 #### [facility] [address] [place] [address], [place] Glucose [Mass/Vol] 160 mg/dL High 70-100 [facility] Comment on above: Performed By: #### 8 5499 #### [facility] [address] [place] [address], [place] Glucose [Mass/Vol] 86 mg/dL Normal 70-100 The [facility] Comment on above: Performed By: #### 8 4511 #### [facility] [address] [place] [address], [place] *BLOOD CULTUREon 11-21-2021 *BLOOD CULTURE Clinical Report: (D) Specimen: BLOOD CULTURE Collected: 11/21/2021 00:17 Status: Final Last Updated: 11/26/2021 06:23 CULT RES (Final) No Growth Day 5 Normal [facility] Comment on above: Performed By: #### 8 [id number] #### [facility] [address] [place] [address], [facility] Performed By: #### 8 4511 #### [facility] [address] [place] [address], [facility] ARTERIAL BLOOD GAS WITH ICAo n 11-21-2021 BASE EXCESS -1 mmol/L Normal -2-[address] [facility] Comment on above: Performed By: #### 8 5499 #### [facility] [address] [place] [address], [facility] DELIVERY SYSTEMS VENTILATOR Normal The [facility] Comment on above: Performed By: #### 8 5499 #### [facility] [address] [place] [address], [facility] FIO2 70 % Normal [facility] Comment on above: Performed By: #### 8 5499 #### [facility] [address] [place] [address], [facility] HCO3 (Bld) [Moles/Vol] 24 mmol/L Normal 21-28 The [facility] Comment on above: Performed By: #### 8 5499 #### [facility] [address] [place] [address], [facility] IONIZED CALCIUM 1.17 mmol/L Normal 1.13-1.32 The [facility] Comment on above: Performed By: #### 8 5499 #### [facility] [address] [place] [address], [place] MIN VOLUME 11.0 Normal [facility] Comment on above: Performed By: #### 8 5499 #### [facility] [address] [place] [address], [place] MODALITY AC VC Normal [facility] Comment on above: Performed By: #### 8 5499 #### [facility] [address] [place] [address], [place] Oxygen (Bld) [Partial pressure] 191 mm[Hg] Critically high 83-108 The [facility] Comment on above: Performed By: #### 8 5499 #### [facility] [address] [place] [address], [place] Oxygen saturation in Blood 97.8 % High 94.0-97.0 The [facility] Comment on above: Performed By: #### 8 5499 #### [facility] [address] [place] [address], [place] PCO2 39 mmHg Normal 35-45 The [facility] Comment on above: Performed By: #### 8 5499 #### [facility] [address] [place] [address], [place] PEEP 10.0 CMH20 Normal [facility] Comment on above: Performed By: #### 8 5499 #### [facility] [address] [place] [address], [place] pH (Bld) 7.40 [pH] Normal 7.35-7.45 The [facility] Comment on above: Performed By: #### 8 5499 #### [facility] [address] [place] [address], [place] Respiratory rate 24 /min Normal [facility] Comment on above: Performed By: #### 8 5499 #### [facility] [address] [place] [address], [place] TIDAL VOLUME (VT) CC 450 Normal [facility] Comment on above: Performed By: #### 8 5499 #### [facility] [address] [place] [address], [place] BASIC METABOLIC PANELon 08-0 2-2021 Calcium [Mass/Vol] 9.3 mg/dL Normal 8.6-10.3 [facility] Comment on above: Order Comment: RESUL TS CHECKED AND CALLED. ACCURATELY READ BACK BY Jina TAVAREZ ED, RN Performed By: #### 8 4511 #### [facility] [address] [place] [address], [place] Chloride [Moles/Vol] 106 mmol/L Normal 98-107 The [facility] Comment on above: Order Comment: RESUL TS CHECKED AND CALLED. ACCURATELY READ BACK BY Jina TAVAREZ ED RN Performed By: #### 8 4511 #### [facility] [address] [facility]. [address] CO2 [Moles/Vol] 25 mmol/L Normal 21-31 The [facility] Comment on above: Order Comment: RESUL TS CHECKED AND CALLED. ACCURATELY READ BACK BY Jina TAVAREZ ED RN Performed By: #### 8 4511 #### [facility] [address] Creatinine [Mass/Vol] 1.68 mg/dL High 0.60-1.20 The [facility] Comment on above: Order Comment: RESUL TS CHECKED AND CALLED. ACCURATELY READ BACK BY Jina TAVAREZ ED RN Performed By: #### 8 4511 #### [facility] [address] EGFR 36 ml/min/1.73sq m Abnormal >60 The [facility] Comment on above: Order Comment: RESUL TS CHECKED AND CALLED. ACCURATELY READ BACK BY Jina TAVAREZ ED, RN Result Comment: The [facility]'s estimated glomerular filtration rate (eGFR) will [...] individuals. Performed By: #### 8 4511 #### [facility] [address] [place] [address], [facility] Glucose [Mass/Vol] 201 mg/dL High 70-100 The [facility] Comment on above: Order Comment: RESUL TS CHECKED AND CALLED. ACCURATELY READ BACK BY R. DAYSI ED RN Performed By: #### 8 4511 #### [facility] [address] [place] [address], [facility] Potassium [Moles/Vol] 3.7 mmol/L Normal 3.5-5.1 The [facility] Comment on above: Order Comment: RESUL TS CHECKED AND CALLED. ACCURATELY READ BACK BY Jina TAVAREZ ED RN Performed By: #### 8 4511 #### [facility] [address] Sodium [Moles/Vol] 141 mmol/L Normal 136-145 The [facility] Comment on above: Order Comment: RESUL TS CHECKED AND CALLED. ACCURATELY READ BACK BY Jina TAVAREZ ED RN Performed By: #### 8 4511 #### [facility] [address] Urea nitrogen [Mass/Vol] 28 mg/dL High 7-25 The [facility] Comment on above: Order Comment: RESUL TS CHECKED AND CALLED. ACCURATELY READ BACK BY Jina TAVAREZ ED, RN Performed By: #### 8 4511 #### [facility] [address] BETA HYDROXYBUTYRATEon 11-21 BETA HYDROXYBUTYRATE 0.21 mmol/L Normal 0.02-0.27 The [facility] Comment on above: Performed By: #### 8 4511 #### [facility] [address] [place] [address], [facility] CBC W/DIFFon 11-21-2021 ABS IMM GRANS 0.1 10*3/uL Normal 0.0-0.2 The [facility] Comment on above: Order Comment: No: D o not add to previous draw Performed By: #### 8 4511 #### [facility] [address] [place] [address], [facility] ABS NEUTROPHILS 9.5 10*3/uL High 1.6-7.6 The [facility] Comment on above: Order Comment: No: D o not add to previous draw Performed By: #### 8 4511 #### [facility] [address] [place] [address], [place] Basophils (Bld) [#/Vol] 0.0 10*3/uL Normal 0.0-0.2 The [facility] Comment on above: Order Comment: No: D o not add to previous draw Performed By: #### 8 4511 #### [facility] [address] [place] [address], [place] Basophils/100 WBC (Bld) 0.3 % Normal 0.0-1.0 The [facility] Comment on above: Order Comment: No: D o not add to previous draw Performed By: #### 8 4511 #### [facility] [address] [place] [address], [place] Eosinophils (Bld) [#/Vol] 0.0 10*3/uL Normal 0.0-0.5 The [facility] Comment on above: Order Comment: No: D o not add to previous draw Performed By: #### 8 4511 #### [facility] [address] [place] [address], [place] Eosinophils/100 WBC (Bld) 0.0 % Normal 0.0-6.0 The [facility] Comment on above: Order Comment: No: D o not add to previous draw Performed By: #### 8 4511 #### [facility] [address] [place] [address], [place] Erythrocyte distribution width (RBC) [Ratio] 14.3 % Normal 11.5-15.0 The [facility] Comment on above: Order Comment: No: D o not add to previous draw Performed By: #### 8 4511 #### [facility] [address] [place] [address], [place] Hematocrit (Bld) [Volume fraction] 38.8 % Normal 36.0-45.0 The [facility] Comment on above: Order Comment: No: D o not add to previous draw Performed By: #### 8 4511 #### [facility] [address] [place] [address], [facility] Hemoglobin (Bld) [Mass/Vol] 13.0 g/dL Normal 12.0-15.0 The [facility] Comment on above: Order Comment: No: D o not add to previous draw Performed By: #### 8 4511 #### [facility] [address] [place] [address], [facility] IMMATURE GRANS 1.1 % High 0.0-1.0 The [facility] Comment on above: Order Comment: No: D o not add to previous draw Performed By: #### 8 4511 #### [facility] [address] [place] [address], [facility] Lymphocytes (Bld) [#/Vol] 0.9 10*3/uL Low 1.2-4.0 The [facility] Comment on above: Order Comment: No: D o not add to previous draw Performed By: #### 8 4511 #### [facility] [address] [place] [address], [facility] Lymphocytes/100 WBC (Bld) 8.2 % Low 20.0-45.0 The [facility] Comment on above: Order Comment: No: D o not add to previous draw Performed By: #### 8 4511 #### [facility] [address] [place] [address], [facility] MCH (RBC) [Entitic mass] 31.3 pg Normal 27.0-33.0 The [facility] Comment on above: Order Comment: No: D o not add to previous draw Performed By: #### 8 4511 #### [facility] [address] [place] [address], [place] MCHC (RBC) [Mass/Vol] 33.5 g/dL Normal 32.0-35.0 The [facility] Comment on above: Order Comment: No: D o not add to previous draw Performed By: #### 8 4511 #### [facility] [address] [facility] [place] [address], [facility] MCV (RBC) [Entitic vol] 93.3 fL Normal 82.0-98.0 The [facility] Comment on above: Order Comment: No: D o not add to previous draw Performed By: #### 8 4511 #### [facility] [address] [place] [address], [facility] Monocytes (Bld) [#/Vol] 1.0 10*3/uL Normal 0.1-1.0 The [facility] Comment on above: Order Comment: No: D o not add to previous draw Performed By: #### 8 4511 #### [facility] [address] [facility] [place] [address], [facility] MONOS 8.3 % Normal 5.0-12.0 The [facility] Comment on above: Order Comment: No: D o not add to previous draw Performed By: #### 8 4511 #### [facility] [address] [facility]. [place] [id number], [facility] Neutrophils/100 WBC (Bld) 82.1 % High 40.0-72.0 The [facility] Comment on above: Order Comment: No: D o not add to previous draw Performed By: #### 8 4511 #### [facility] [address] [facility] [place] [address], [facility] Nucleated RBC/100 WBC (Bld) [Ratio] 0 % Normal 0-0 The [facility] Comment on above: Order Comment: No: D o not add to previous draw Performed By: #### 8 4511 #### [facility] [address] [place] [address], [facility] PLAT CNT 176 10*3/uL Normal 150-[address] [facility] Comment on above: Order Comment: No: D o not add to previous draw Performed By: #### 8 4511 #### [facility] [address] [place] [address], [facility] RBC (Bld) [#/Vol] 4.16 10*6/uL Normal 3.80-5.00 The [facility] Comment on above: Order Comment: No: D o not add to previous draw Performed By: #### 8 4511 #### [facility] [address] [place] [address], [facility] WBC (Bld) [#/Vol] 11.53 10*3/uL High 4.00-10.60 The [facility] Comment on above: Order Comment: No: D o not add to previous draw Performed By: #### 8 4511 #### [facility] [address] [place] [address], [facility] ABS IMM GRANS 0.2 10*3/uL Normal 0.0-0.2 The [facility] Comment on above: Order Comment: Yes: Add to Previous draw if able Performed By: #### 8 [id number] #### [facility] [address] [facility] [place] [address], [facility] ABS NEUTROPHILS 12.0 10*3/uL High 1.6-7.6 The [facility] Comment on above: Order Comment: Yes: Add to Previous draw if able Performed By: #### 8 [id number] #### [facility] [address] [place] [address], [facility] Basophils (Bld) [#/Vol] 0.0 10*3/uL Normal 0.0-0.2 The [facility] Comment on above: Order Comment: Yes: Add to Previous draw if able Performed By: #### 8 [id number] #### [facility] [address] [place] [address], [facility] Basophils/100 WBC (Bld) 0.2 % Normal 0.0-1.0 The [facility] Comment on above: Order Comment: Yes: Add to Previous draw if able Performed By: #### 8 [id number] #### [facility] [address] [place] [address], [facility] Eosinophils (Bld) [#/Vol] 0.0 10*3/uL Normal 0.0-0.5 The [facility] Comment on above: Order Comment: Yes: Add to Previous draw if able Performed By: #### 8 [id number] #### [facility] [address] [place] [id number], [facility] Eosinophils/100 WBC (Bld) 0.1 % Normal 0.0-6.0 The [facility] Comment on above: Order Comment: Yes: Add to Previous draw if able Performed By: #### 8 [id number] #### [facility] [address] [place] [address], [facility] Erythrocyte distribution width (RBC) [Ratio] 14.5 % Normal 11.5-15.0 The [facility] Comment on above: Order Comment: Yes: Add to Previous draw if able Performed By: #### 8 [id number] #### [facility] [address] [place] [address], [facility] Hematocrit (Bld) [Volume fraction] 40.6 % Normal 36.0-45.0 [facility] [facility] Comment on above: Order Comment: Yes: Add to Previous draw if able Performed By: #### 8 [id number] #### [facility] [address] [place] [id number], [facility] Hemoglobin (Bld) [Mass/Vol] 13.3 g/dL Normal 12.0-15.0 The [facility] Comment on above: Order Comment: Yes: Add to Previous draw if able Performed By: #### 8 [id number] #### [facility] [address] [place] [id number], [place] IMMATURE GRANS 1.7 % High 0.0-1.0 The [facility] Comment on above: Order Comment: Yes: Add to Previous draw if able Performed By: #### 8 [id number] #### [facility] [address] [place] [address], [facility] Lymphocytes (Bld) [#/Vol] 0.6 10*3/uL Low 1.2-4.0 The [facility] Comment on above: Order Comment: Yes: Add to Previous draw if able Performed By: #### 8 [id number] #### [facility] [address] [facility] [place] [address], [facility] Lymphocytes/100 WBC (Bld) 4.2 % Low 20.0-45.0 The [facility] Comment on above: Order Comment: Yes: Add to Previous draw if able Performed By: #### 8 [id number] #### [facility] [address] [facility] [place] [address], [facility] MCH (RBC) [Entitic mass] 31.4 pg Normal 27.0-33.0 The [facility] Comment on above: Order Comment: Yes: Add to Previous draw if able Performed By: #### 8 [id number] #### [facility] [address] [facility] [place] [address], [facility] MCHC (RBC) [Mass/Vol] 32.8 g/dL Normal 32.0-35.0 The [facility] Comment on above: Order Comment: Yes: Add to Previous draw if able Performed By: #### 8 [id number] #### [facility] [address] [facility] [place] [address], [facility] MCV (RBC) [Entitic vol] 95.8 fL Normal 82.0-98.0 The [facility] Comment on above: Order Comment: Yes: Add to Previous draw if able Performed By: #### 8 [id number] #### [facility] [address] [facility] [place] [address], [facility] Monocytes (Bld) [#/Vol] 0.8 10*3/uL Normal 0.1-1.0 The [facility] Comment on above: Order Comment: Yes: Add to Previous draw if able Performed By: #### 8 [id number] #### [facility] [address] [place] [address], [place] MONOS 5.8 % Normal 5.0-12.0 The [facility] Comment on above: Order Comment: Yes: Add to Previous draw if able Performed By: #### 8 [id number] #### [facility] [address] [place] [address], [place] Neutrophils/100 WBC (Bld) 88.0 % High 40.0-72.0 The [facility] Comment on above: Order Comment: Yes: Add to Previous draw if able Performed By: #### 8 [id number] #### [facility] [address] [place] [address], [place] Nucleated RBC/100 WBC (Bld) [Ratio] 0 % Normal 0-0 The [facility] Comment on above: Order Comment: Yes: Add to Previous draw if able Performed By: #### 8 [id number] #### [facility] [address] [place] [address], [place] PLAT CNT 163 10*3/uL Normal 150-[address] [facility] Comment on above: Order Comment: Yes: Add to Previous draw if able Performed By: #### 8 [id number] #### [facility] [address] [place] [address], [place] RBC (Bld) [#/Vol] 4.24 10*6/uL Normal 3.80-5.00 The [facility] Comment on above: Order Comment: Yes: Add to Previous draw if able Performed By: #### 8 [id number] #### [facility] [address] [place] [address], [place] WBC (Bld) [#/Vol] 13.68 10*3/uL High 4.00-10.60 The [facility] Comment on above: Order Comment: Yes: Add to Previous draw if able Performed By: #### 8 [id number] #### [facility] [address] [place] [address], [place] COMP METABOLIC PANELon 11-21 Albumin [Mass/Vol] 4.1 g/dL Normal 3.5-5.7 The [facility] Comment on above: Performed By: #### 8 4511 #### [facility] [address] [place] [address], [place] ALKALINE PHOSPH 196 IU/L High 34-104 The [facility] Comment on above: Performed By: #### 8 4511 #### [facility] [address] [place] [address], [place] ALT [Catalytic activity/Vol] 560 U/L Critically high 7-52 The [facility] Comment on above: Performed By: #### 8 4511 #### [facility] [address] [place] [address], [place] AST [Catalytic activity/Vol] 852 U/L High 13-39 The [facility] Comment on above: Performed By: #### 8 4511 #### [facility] [address] [place] [address], [place] Bilirubin [Mass/Vol] 0.9 mg/dL Normal 0.3-1.0 The [facility] Comment on above: Performed By: #### 8 4511 #### [facility] [address] [place] [address], [place] Calcium [Mass/Vol] 8.9 mg/dL Normal 8.6-10.3 The [facility] Comment on above: Performed By: #### 8 4511 #### [facility] [address] [place] [address], [place] Chloride [Moles/Vol] 101 mmol/L Normal 98-107 The [facility] Comment on above: Performed By: #### 8 4511 #### [facility] [address] [place] [address], [place] CO2 [Moles/Vol] 22 mmol/L Normal 21-31 The [facility] Comment on above: Performed By: #### 8 4511 #### [facility] [address] [facility] [place] [address], [facility] Creatinine [Mass/Vol] 1.90 mg/dL High 0.60-1.20 The [facility] Comment on above: Performed By: #### 8 4511 #### [facility] [address] [facility] [place] [address], [facility] EGFR 31 ml/min/1.73sq m Abnormal >60 The [facility] Comment on above: Result Comment: The [facility]'s estimated glomerular filtration rate (eGFR) will [...] individuals. Performed By: #### 8 4511 #### [facility] [address] [place] [address], [facility] Glucose [Mass/Vol] 436 mg/dL High 70-100 The [facility] Comment on above: Performed By: #### 8 4511 #### [facility] [address] [facility] [place] [place] [address], [facility] Potassium [Moles/Vol] 4.4 mmol/L Normal 3.5-5.1 The [facility] Comment on above: Performed By: #### 8 4511 #### [facility] [address] [place] [address], [facility] Protein [Mass/Vol] 6.9 g/dL Normal 6.0-8.3 The [facility] Comment on above: Performed By: #### 8 4511 #### [facility] [address] [facility] [place] [place] [address], [facility] Sodium [Moles/Vol] 136 mmol/L Normal 136-145 [facility] Comment on above: Performed By: #### 8 4511 #### [facility] [address] [facility] [place] [place] [address], [facility] Urea nitrogen [Mass/Vol] 30 mg/dL High 7-25 [facility] Comment on above: Performed By: #### 8 4511 #### [facility] [address] [facility] [place] [place] [address], [facility] CT BRAIN WO CONTRASTon 11-21 CT BRAIN WO CONTRAST [facility] Department of Radiology [address] [place] [address] [id number] Patient Name: RAQUEL VILA : 1965 Sex: F Age: Race: White Pt. Location: [place] [address] Patient Status: I Ordered Date: 11/20/2021 10:30:00 [...] Electronically signed: Aziza Funes M.D.. Transcribed by: [email or web address], User Resident: Electronically Signed by: AZIZA FUNES @ 11/20/2021 11:03 PM Normal The [facility] Comment on above: Order Comment: Other ELECTROLYTE PANELon 11-22-19 22 CARBON DIOXIDE CANCELED Normal 21-31 The [facility] Comment on above: Result Comment: The released value 23 was canceled by [email or web address] on 11/21/2021 02:22 Performed By: #### 8 4511 #### [facility] [address] [place] [address], [place] CHLORIDE CANCELED Normal 98-107 The [facility] Comment on above: Result Comment: The released value 101 was canceled by [email or web address] on 11/21/2021 02:22 Performed By: #### 8 4511 #### [facility] [address] [place] [address], [place] POTASSIUM CANCELED Normal 3.5-5.1 The [facility] Comment on above: Result Comment: The released value 4.4 was canceled by [email or web address] on 11/21/2021 02:22 Performed By: #### 8 4511 #### [facility] [address] [place] [address], [place] SODIUM CANCELED Normal 136-145 The [facility] Comment on above: Result Comment: The released value 135 was canceled by [email or web address] on 11/21/2021 02:22 Performed By: #### 8 4511 #### [facility] [address] [place] [id number], [facility] LACTATE BLOODon 11-21-2021 Lactate [Moles/Vol] 2.1 mmol/L Normal .5-2.2 The [facility] Comment on above: Order Comment: No: D o not add to previous draw Performed By: #### 8 4511 #### [facility] [address] [place] [address], [facility] Lactate [Moles/Vol] 2.1 mmol/L Normal .5-2.2 The [facility] Comment on above: Order Comment: RESUL TS CHECKED AND CALLED. ACCURATELY READ BACK BY Jina TAVAREZ ED, RN Performed By: #### 8 4511 #### [facility] [address] [facility] [place] [address], [facility] MAGNESIUM BLOODon 11-21-2021 Magnesium [Mass/Vol] 2.0 mg/dL Normal 1.9-2.7 The [facility] Comment on above: Order Comment: RESUL TS CHECKED AND CALLED. ACCURATELY READ BACK BY Jina TAVAREZ ED, RN Performed By: #### 8 4511 #### [facility] [address] [facility] [place] [address], [facility] OSMOLALITY BLOODon 2 Osmolality [Osmolality] 319 mosm/kg High 285-305 The [facility] Comment on above: Order Comment: No: D o not add to previous draw Performed By: #### 8 4511 #### [facility] [address] [facility] [place] [place] [address], [facility] PHOSPHORUS BLOODon 2 Phosphate [Mass/Vol] 3.1 mg/dL Normal 2.5-5.0 The [facility] Comment on above: Order Comment: RESUL TS CHECKED AND CALLED. ACCURATELY READ BACK BY Jina TAVAREZ ED, RN Performed By: #### 8 4511 #### [facility] [address] [place] [address], [place] POC GLUCOSE LABon 11-21-2021 Glucose [Mass/Vol] 150 mg/dL High 70-100 [facility] Comment on above: Performed By: #### 8 5499 #### [facility] [address] [place] [address], [place] Glucose [Mass/Vol] 149 mg/dL High 70-100 [facility] Comment on above: Performed By: #### 8 5499 #### [facility] [address] [place] [address], [place] Glucose [Mass/Vol] 178 mg/dL High 70-100 [facility] Comment on above: Performed By: #### 8 4511 #### [facility] [address] [place] [address], [place] Glucose [Mass/Vol] 173 mg/dL High 70-100 [facility] Comment on above: Performed By: #### 8 4511 #### [facility] [address] [place] [address], [place] Glucose [Mass/Vol] 158 mg/dL High 70-100 [facility] Comment on above: Performed By: #### 8 5499 #### [facility] [address] [place] [address], [place] Glucose [Mass/Vol] 165 mg/dL High 70-100 [facility] Comment on above: Performed By: #### 8 4511 #### [facility] [address] [place] [address], [place] Glucose [Mass/Vol] 185 mg/dL High 70-100 [facility] Comment on above: Performed By: #### 8 5499 #### [facility] [address] [place] [address], [place] Glucose [Mass/Vol] 200 mg/dL High 70-100 [facility] Comment on above: Performed By: #### 8 5499 ####[facility] [place] [address], [place] Glucose [Mass/Vol] 230 mg/dL High 70-100 [facility] above: Performed By: #### 8 4511 #### [facility] [address] [place] [address], [place] Glucose [Mass/Vol] 265 mg/dL High 70-100 [facility] Comment on above: Performed By: #### 8 5499 #### [facility] [address] [place] [address], [place] Glucose [Mass/Vol] 352 mg/dL High 70-100 [facility] Comment on above: Performed By: #### 8 5499 #### [facility] [address] [place] [address], [place] Glucose [Mass/Vol] 403 mg/dL High 70-100 The [facility] Comment on above: Performed By: #### 8 5499 #### [facility] [address] [place] [address], [place] Glucose [Mass/Vol] 502 mg/dL Critically high 70-100 [facility] Comment on above: Order Comment: NOTE: Critical Value Performed By: #### 8 5499 #### [facility] [address] [place] [address], [place] Glucose [Mass/Vol] 490 mg/dL High 70-100 The [facility] Comment on above: Performed By: #### 8 5499 #### [facility] [address] [place] [address], [place] PROCALCITONINon 11-21-2021 PROCALCITONIN 1.17 ng/mL High 0.00-0.10 The [facility] Comment on above: Result Comment: Susp [...] PCT<0.5ng/mL Performed By: #### 8 4511 #### [facility] [address] [place] [address], [facility] TRIGLYCERIDES BLOODon 2021 Triglyceride [Mass/Vol] 121 mg/dL Normal 40-149 [facility] Comment on above: Order Comment: RESUL TS CHECKED AND CALLED. ACCURATELY READ BACK BY Jina TAVAREZ ED RN Result Comment: TRIG LYCERIDE REFERENCE RANGE: 20 YEARS AND OLDER CARDIOVASCULAR RISK LESS THAN 150 mg/dl LOW RISK 150 TO 199 mg/dl BORDERLINE RISK 200 mg/dl AND GREATER HIGH RISK Performed By: #### 8 4511 #### [facility] [address] [place] [address], [facility] ACETONE SERUMon 11-20-2021 ACETONE Negative Normal NEGATIVE [facility] Comment on above: Performed By: #### V ITAD #### [facility] [address] [place], [place] [address] Dr. Kelsie Dominguez ARTERIAL BLOOD GAS WITH ICAo n 11-20-2021 BASE EXCESS -4 mmol/L Low -2-[address] [facility] Comment on above: Order Comment: RESUL TS CHECKED AND CALLED. ACCURATELY READ BACK BY Jina TAVAREZ ED RN Performed By: #### 8 4511 #### [facility] [address] DELIVERY SYSTEMS VENTILATOR Normal The [facility] Comment on above: Order Comment: RESUL TS CHECKED AND CALLED. ACCURATELY READ BACK BY Jina TAVAREZ ED RN Performed By: #### 8 4511 #### [facility] [address] [facility]. [address] FIO2 100 % Normal The [facility] Comment on above: Order Comment: RESUL TS CHECKED AND CALLED. ACCURATELY READ BACK BY Jina TAVAREZ ED RN Performed By: #### 8 4511 #### [facility] [address] [facility] [place] [address], [facility] HCO3 (Bld) [Moles/Vol] 23 mmol/L Normal 21-28 The [facility] Comment on above: Order Comment: RESUL TS CHECKED AND CALLED. ACCURATELY READ BACK BY Jina TAVAREZ ED RN Performed By: #### 8 4511 #### [facility] [address] [facility] [place] [place] [address], [facility] IONIZED CALCIUM 1.13 mmol/L Normal 1.13-1.32 The [facility] Comment on above: Order Comment: RESUL TS CHECKED AND CALLED. ACCURATELY READ BACK BY Jina TAVAREZ ED, RN Performed By: #### 8 4511 #### [facility] [address] [facility] [place] [address], [facility] MIN VOLUME 11.0 Normal The [facility] Comment on above: Order Comment: RESUL TS CHECKED AND CALLED. ACCURATELY READ BACK BY Jina TAVAREZ ED, RN Performed By: #### 8 4511 #### [facility] [address] [place] [address], [facility] MODALITY AC VC Normal The [facility] Comment on above: Order Comment: RESUL TS CHECKED AND CALLED. ACCURATELY READ BACK BY Jina TAVAREZ ED RN Performed By: #### 8 4511 #### [facility] [address] [place] [address], [facility] Oxygen (Bld) [Partial pressure] 68 mm[Hg] Low 83-108 The [facility] Comment on above: Order Comment: RESUL TS CHECKED AND CALLED. ACCURATELY READ BACK BY Jina TAVAREZ ED RN Performed By: #### 8 4511 #### [facility] [address] [facility] [place] [address], [facility] Oxygen saturation in Blood 91.7 % Low 94.0-97.0 The [facility] Comment on above: Order Comment: RESUL TS CHECKED AND CALLED. ACCURATELY READ BACK BY Jina TAVAREZ ED RN Performed By: #### 8 4511 #### [facility] [address] [place] [address], [facility] PCO2 52 mmHg High 35-45 The [facility] Comment on above: Order Comment: RESUL TS CHECKED AND CALLED. ACCURATELY READ BACK BY Jina TAVAREZ ED RN Performed By: #### 8 4511 #### [facility] [address] [place] [address], [facility] PEEP 10.0 CMH20 Normal The [facility] Comment on above: Order Comment: RESUL TS CHECKED AND CALLED. ACCURATELY READ BACK BY Jina TAVAREZ ED RN Performed By: #### 8 4511 #### [facility] [address] [place] [address], [place] pH (Bld) 7.26 [pH] Low 7.35-7.45 The [facility] Comment on above: Order Comment: RESUL TS CHECKED AND CALLED. ACCURATELY READ BACK BY Jina TAVAREZ ED RN Performed By: #### 8 4511 #### [facility] [address] [place] [address], [facility] Respiratory rate 24 /min Normal The [facility] Comment on above: Order Comment: RESUL TS CHECKED AND CALLED. ACCURATELY READ BACK BY Jina TAVAREZ ED RN Performed By: #### 8 4511 #### [facility] [address] [place] [address], [facility] TIDAL VOLUME (VT) CC 450 Normal [facility] Comment on above: Order Comment: RESUL TS CHECKED AND CALLED. ACCURATELY READ BACK BY Jina TAVAREZ ED RN Performed By: #### 8 4511 #### [facility] [address] [place] [address], [facility] BASE EXCESS -10 mmol/L Low -2-[address] [facility] Comment on above: Performed By: #### 8 4511 #### [facility] [address] [place] [address], [facility] DELIVERY SYSTEMS VENTILATOR Normal The [facility] Comment on above: Performed By: #### 8 4511 #### [facility] [address] [place] [address], [facility] FIO2 60 % Normal [facility] Comment on above: Performed By: #### 8 4511 #### [facility] [address] [place] [address], [place] HCO3 (Bld) [Moles/Vol] 20 mmol/L Low 21-28 The [facility] Comment on above: Result Comment: RESU LTS CHECKED AND CALLED. ACCURATELY READ BACK BY Jina TAVAREZ ED RN Performed By: #### 8 4511 #### [facility] [address] [place] [address], [place] IONIZED CALCIUM 1.13 mmol/L Normal 1.13-1.32 The [facility] Comment on above: Performed By: #### 8 4511 #### [facility] [address] [place] [address], [place] MIN VOLUME 6.8 Normal [facility] Comment on above: Performed By: #### 8 4511 #### [facility] [address] [place] [address], [place] MODALITY AV VC Normal [facility] Comment on above: Performed By: #### 8 4511 #### [facility] [address] [place] [address], [place] Oxygen (Bld) [Partial pressure] 65 mm[Hg] Low 83-108 The [facility] Comment on above: Performed By: #### 8 4511 #### [facility] [address] [place] [address], [place] Oxygen saturation in Blood 87.0 % Critically low 94.0-97.0 The [facility] Comment on above: Performed By: #### 8 4511 #### [facility] [address] [place] [address], [place] PCO2 59 mmHg Critically high 35-45 The [facility] Comment on above: Performed By: #### 8 4511 #### [facility] [address] [place] [address], [place] PEEP 8.0 CMH20 Normal [facility] Comment on above: Performed By: #### 8 4511 #### [facility] [address] [place] [address], [place] pH (Bld) 7.14 [pH] Critically low 7.35-7.45 The [facility] Comment on above: Result Comment: RESU LTS CHECKED AND CALLED. ACCURATELY READ BACK BY Jina TAVAREZ ED RN Performed By: #### 8 4511 #### [facility] [address] [place] [address], [place] Respiratory rate 14 /min Normal [facility] Comment on above: Performed By: #### 8 4511 #### [facility] [address] [place] [address], [place] TIDAL VOLUME (VT) CC 500 Normal [facility] Comment on above: Performed By: #### 8 4511 #### [facility] [address] BASIC METABOLIC PANELon 08-0 Calcium [Mass/Vol] 8.5 mg/dL Low 8.6-10.3 The [facility] Comment on above: Performed By: #### 8 5499 #### [facility] [address] Chloride [Moles/Vol] 102 mmol/L Normal 98-107 The [facility] Comment on above: Performed By: #### 8 5499 #### [facility] [address] [facility] [address] CO2 [Moles/Vol] 19 mmol/L Low 21-31 The [facility] Comment on above: Performed By: #### 8 5499 #### [facility] [address] Creatinine [Mass/Vol] 1.89 mg/dL High 0.60-1.20 The [facility] Comment on above: Performed By: #### 8 5499 #### [facility] [address] [facility] [address] EGFR 31 ml/min/1.73sq m Abnormal >60 The [facility] Comment on above: Result Comment: The [facility]'s estimated glomerular filtration rate (eGFR) will [...] individuals. Performed By: #### 8 [id number] #### [facility] [address] [facility] [place] [address], [facility] Glucose [Mass/Vol] 465 mg/dL High 70-100 [facility] Comment on above: Performed By: #### 8 5499 #### [facility] [address] [facility] [place] [address], [facility] Potassium [Moles/Vol] 6.2 mmol/L Critically high 3.5-5.1 The [facility] Comment on above: Result Comment: M-CR ITICAL RESULT(S) REVIEWED, CALLED TO AND READ BACK BY Alexandra Vásquez RN at 2021. M-No hemolysis. Performed By: #### [id number] #### [facility] [address] [facility] [place] [address], [facility] Sodium [Moles/Vol] 135 mmol/L Low 136-145 The [facility] Comment on above: Performed By: #### [id number] #### [facility] [address] [facility] [place] [address], [facility] Urea nitrogen [Mass/Vol] 28 mg/dL High 7-25 [facility] Comment on above: Performed By: #### [id number] #### [facility] [address] [place] [address], [facility] BLOOD GASES BTYon 11-20-2021 02 MODE VENTILATOR Normal [facility] Comment on above: Performed By: #### V ITAD #### [facility] [address] [address] [address] Kelsie Dominguez ALLENS TEST Positive Normal [facility] Comment on above: Performed By: #### V ITAD #### [facility] [address] [address] [address] Kelsie Dominguez Base excess Calc (Bld) [Moles/Vol] -14.80556 mmol/L Critically low -2.0-2.0 [facility] Comment on above: Performed By: #### V ITAD #### [facility] [address] [address] [address] Kelsie Dominguez BIPAP PRESSURE Normal [facility] Comment on above: Performed By: #### V ITAD #### [facility] [address] [address] [address] Kelsie Dominguez CO2 [Moles/Vol] 34.7 mmol/L Critically high 23.0-28.0 [facility] Comment on above: Performed By: #### V ITAD #### [facility] [address] [place] [address] Dr. Kelsie Dominguez CPAP Normal [facility] Comment on above: Performed By: #### V ITAD #### [facility] [address] [place] [address] Dr. Kelsie Dominguez FIO2 100.00 % [facility] Comment on above: Performed By: #### V ITAD #### [facility] [address] [place] [address] Dr. Kelsie Dominguez HCO3 (Bld) [Moles/Vol] 13.8 mmol/L Critically low 22.0-26.0 [facility] Comment on above: Performed By: #### V ITAD #### [facility] [address] [place] [address] Dr. Kelsie Dominguez LPM [facility] Comment on above: Performed By: #### V ITAD #### [facility] [address] [place] [address] Dr. Kelsie Dominguez MINUTE VOLUME Normal [facility] Comment on above: Performed By: #### V ITAD #### [facility] [address] [place] [address] Dr. Kelsie Dominguez Oxygen (Bld) [Partial pressure] 122.0 mm[Hg] Critically high 80.0-100.0 [facility] Comment on above: Performed By: #### V ITAD #### [facility] [address] [place] [address] Dr. Kelsie Dominguez Oxygen saturation in Blood 97.0 % Normal 95.0-100.0 [facility] Comment on above: Performed By: #### V ITAD #### [facility] [address] [place] [address] Dr. Kelsie Dominguez PCO2 53.1 mmHg Critically high 35.0-45.0 [facility] Comment on above: Performed By: #### V ITAD #### [facility] [address] [place] [address] Dr. Kelsie Dominguez PEEP 8 [facility] Comment on above: Performed By: #### V ITAD #### [facility] [address] [place] [address] Dr. Kelsie Dominguez pH (Bld) 7.084 [pH] Critically low 7.350-7.450 [facility] Comment on above: Performed By: #### V ITAD #### [facility] [address] [place] [address] Dr. Kelsie Dominguez PIP [facility] Comment on above: Performed By: #### V ITAD #### [facility] [address] [place] [address] Dr. Kelsie Dominguez PS 14 [facility] Comment on above: Performed By: #### V ITAD #### [facility] [address] [place] [address] Dr. Kelsie Dominguez PUNCTURE SITE RR [facility] Comment on above: Performed By: #### V ITAD #### [facility] [address] [place] [address] Dr. Kelsie Dominguez RATE 20 bpm [facility] Comment on above: Performed By: #### V ITAD #### [facility] [address] [place] [address] Dr. Kelsie Dominguez VENT MODE PSIMV [facility] Comment on above: Performed By: #### V ITAD #### [facility] [address] [place] [address] Dr. Kelsie Dominguez [place] [facility] Comment on above: Performed By: #### V ITAD #### [facility] [address] [place] [address] Dr. Kelsie Dominguez BNPon 11-20-2021 Natriuretic peptide B (Bld) [Mass/Vol] 2560.0 pg/mL Critically high <=900.0 [facility] Comment on above: Performed By: #### C MP, CMADM, BNP #### [facility] [address] [address] [address] Kelsie Dominguez CARDIAC JANIA ADMITon 022 CK [Catalytic activity/Vol] 93 U/L Normal 26-192 [facility] Comment on above: Performed By: #### C MP, CMADM, BNP #### [facility] [address] [place] [address] Dr. Kelsie Dominguez CK.MB [Mass/Vol] 2.87 ng/mL Normal <=3.60 [facility] Comment on above: Performed By: #### C MP, CMADM, BNP #### [facility] [address] [place] [address] Dr. Kelsie Dominguez HSTROP 12.2 pg/mL Normal 4.0-51.3 [facility] Comment on above: Result Comment: CUT- OFF POINTS HAVE BEEN ESTABLISHED BASED ON THE FOURTH UNIVERSAL DEFINITIONS OF MYOCARDIAL INFARCTION. THE UPPER REFERENCE LIMIT (URL) OF TROPONIN, DEFINED THE 99TH PERCENTILE OF cTnI DISTRIBUTION IN A REFERENCE POPULATION, HAS BEEN CONFIRMED THE DECISION THRESHOLD FOR RI DIAGNOSIS. Performed By: #### C MP, CMADM, BNP #### [facility] [address] [place] [address] Dr. Kelsie Dominguez VARGAS 112 ng/mL Critically high 9-82 [facility] Comment on above: Performed By: #### C MP, CMADM, BNP #### [facility] [address] [place] [address] Dr. Kelsie Dominguez CBC W MANUAL DIFFon 11-21-19 22 ATYPICAL LYMPH # Normal [facility] Comment on above: Performed By: #### C BCMAN #### [facility] [address] [place] [address] Dr. Kelsie Dominguez ATYPICAL LYMPH % Normal [facility] Comment on above: Performed By: #### C BCMAN #### [facility] [address] [place] [address] Dr. Kelsie Dominguez BAND # 0.1 103/ul Normal 0.0-0.3 [facility] Comment on above: Performed By: #### C BCKASEY #### [facility] [address] [place] [address] Dr. Kelsie Dominguez BAND % 1 % Normal 0-5 [facility] Comment on above: Performed By: #### C LIBERTAD #### [facility] [address] [place] [address] Dr. Kelsie Dominguez BASOM # 0.00 103/ul Normal 0.00-0.10 [facility] Comment on above: Performed By: #### C BCKASEY #### [facility] [address] [place] [address] Dr. Kelsie Dominguez BASOM % 0.0 % Critically low 0.2-2.[address] [facility] Comment on above: Performed By: #### C LIBERTAD #### [facility] [address] [place] [address] Dr. Kelsie Dominguez BLAST # Normal [facility] Comment on above: Performed By: #### C LIBERTAD #### [facility] [address] [place] [address] Dr. Kelsie Dominguez BLAST % Normal [facility] Comment on above: Performed By: #### C LIBERTAD #### [facility] [address] [place] [address] Dr. Kelsie Dominguez CORRECTED WBC Normal 4.0-11.0 [facility] Comment on above: Performed By: #### C LIBERTAD #### [facility] [address] [place] [address] Dr. Kelsie Dominguez EOS # 0.00 103/ul Normal 0.00-0.70 [facility] Comment on above: Performed By: #### C LIBERTAD #### [facility] [address] [place] [address] Dr. Kelsie Dominguez EOS% 0.0 % Critically low 0.9-7.0 [facility] Comment on above: Performed By: #### C LIBERTAD #### [facility] [address] [place] [address] Dr. Kelsie Dominguez HCT 43.8 % Normal 36.0-48.0 [facility] Comment on above: Performed By: #### C LIBERTAD #### [facility] [address] [address] [address] Kelsie Dominguez HGB 13.3 g/dl Normal 12.0-16.0 [facility] Comment on above: Performed By: #### C LIBERTAD #### [facility] [address] [address] [address] Kelsie Dominguez LYMPHM # 3.78 103/ul Normal 1.20-3.80 [facility] Comment on above: Performed By: #### C LIBERTAD #### [facility] [address] [place] [address] Dr. Kelsie Dominguez LYMPHM% 27.0 % Normal 20.5-60.0 [facility] Comment on above: Performed By: #### C LIBERTAD #### [facility] [address] [place] [address] Dr. Kelsie Dominguez MCH 31.4 pg Normal 26.7-34.0 [facility] Comment on above: Performed By: #### C LIBERTAD #### [facility] [address] [place] [address] Dr. Kelsie Dominguez MCHC 30.4 g/dl Normal 29.9-35.2 [facility] Comment on above: Performed By: #### C LIBERTAD #### [facility] [address] [place] [address] Dr. Kelsie Dominguez MCV 103.3 fL Critically high 81.0-99.0 [facility] Comment on above: Performed By: #### C LIBERTAD #### [facility] [address] [place] [address] Dr. Kelsie Dominguez METAMYELOCYTE # Normal [facility] Comment on above: Performed By: #### C LIBERTAD #### [facility] [address] [place] [address] Dr. Kelsie Dominguez METAMYELOCYTE % Normal [facility] Comment on above: Performed By: #### C LIBERTAD #### [facility] [address] [place] [address] Dr. Kelsie Dominguez MONOM# 1.12 103/ul Critically high 0.30-0.80 [facility] Comment on above: Performed By: #### C LIBERTAD #### [facility] [address] [place] [address] Dr. Kelsie Dominguez MONOM% 8.0 % Normal 1.7-12.0 [facility] Comment on above: Performed By: #### C LIBERTAD #### [facility] [address] [place] [address] Dr. Kelsie Dominguez MPV 9.2 fL Critically low 9.5-13.[address] [facility] Comment on above: Performed By: #### C LIBERTAD #### [facility] [address] [place] [address] Dr. Kelsie Dominguez MYELOCYTE # Normal [facility] Comment on above: Performed By: #### C LIBERTAD #### [facility] [address] [place] [address] Dr. Kelsie Dominguez MYELOCYTE % Normal [facility] Comment on above: Performed By: #### C LIBERTAD #### [facility] [address] [place] [address] Dr. Kelsie Dominguez NRBC Normal [facility] Comment on above: Performed By: #### C LIBERTAD #### [facility] [address] [place] [address] Dr. Kelsie Dominguez PLT 213 103/ul Normal 150-450 [facility] Comment on above: Performed By: #### C LIBERTAD #### [facility] [address] [place] [address] Dr. Kelsie Dominguez RBC 4.24 106/ul Normal 4.20-5.40 [facility] Comment on above: Performed By: #### C LIBERTAD #### [facility] [address] [place] [address] Dr. Kelsie Dominguez RDW 14.6 % Normal 11.0-15.0 [facility] Comment on above: Performed By: #### C LIBERTAD #### [facility] [address] [place] [address] Dr. Kelsie Dominguez SEG # 8.96 103/ul Critically high 1.40-6.50 [facility] Comment on above: Performed By: #### Swapna MAURER #### [facility] [address] [address] [address] Kelsie Dominguez SEG % 64.0 % Normal 43.0-75.0 [facility] Comment on above: Performed By: #### C LIBERTAD #### [facility] [address] [address] [address] Kelsie Dominguez WBC 14.0 103/ul Critically high 4.0-11.0 [facility] Comment on above: Performed By: #### Swapna MAURER #### [facility] [address] [address] [address] Kelsie Dominguez Covid-19 PCR ([facility])on SARS-CoV-2 (COVID-19) RNA SUZANNA+probe Ql (Unsp spec) Not detected Normal NOT DETECTED [facility] Comment on above: Result Comment: When [...] for this test is supported by the [employer] of Health and Human Service's declaration that [...] used). Performed By: #### Swapna MAURER #### [facility] [address] [place] [address] Dr. Kelsie Dominguez D-DIMERon 11-20-2021 D-DIMER 2.80 mg/L FEU Critically high <=0.59 [facility] Comment on above: Performed By: #### V ITAD #### [facility] [address] [address] [address] Kelsie Dominguez D-DIMER COMMENTS SEE BELOW Normal [facility] Comment on above: Result Comment: Incr [...] hospitalization. Performed By: #### V ITAD #### [facility] [address] [address] [address] Kelsie Dominguez LACTATE BLOODon 11-20-2021 Lactate [Moles/Vol] 5.2 mmol/L Critically high .5-2.2 [facility] Comment on above: Order Comment: RESUL TS CHECKED AND CALLED. ACCURATELY READ BACK BY Jina TAVAREZ ED, RN Result Comment: M-CR ITICAL RESULT(S) REVIEWED, CALLED TO AND READ BACK BY Alexandra Vásquez RN at 2140. Performed By: #### [id number] #### [facility] [address] [facility]. [address] LACTATE/LACTIC ACIDon 2021 Lactate [Moles/Vol] 12.3 mmol/L Critically high 0.4-1.9 [facility] Comment on above: Performed By: #### H H #### [facility] [address] [address] [address] Kelsie Dominguez LIVER BATTERYon 11-20-2021 Albumin [Mass/Vol] 4.1 g/dL Normal 3.5-5.7 [facility] Comment on above: Performed By: #### [id number] #### [facility] [address] [facility] [place] [address], [facility] ALKALINE PHOSPH 213 IU/L High 34-104 [facility] Comment on above: Performed By: #### [id number] #### [facility] [address] [place] [address], [facility] ALT [Catalytic activity/Vol] 437 U/L Critically high 7-52 [facility] Comment on above: Performed By: #### [id number] #### [facility] [address] [place] [address], [place] AST [Catalytic activity/Vol] 717 U/L High 13-39 [facility] Comment on above: Performed By: #### [id number] #### [facility] [address] [place] [address], [place] Bilirubin [Mass/Vol] 1.7 mg/dL High 0.3-1.0 [facility] Comment on above: Performed By: #### [id number] #### [facility] [address] [place] [address], [place] Bilirubin.direct [Mass/Vol] 0.9 mg/dL High 0.0-0.2 [facility] Comment on above: Performed By: #### [id number] #### [facility] [address] [place] [address], [place] Protein [Mass/Vol] 6.8 g/dL Normal 6.0-8.3 [facility] Comment on above: Performed By: #### 8 [id number] #### [facility] [address] [place] [address], [place] MAGNESIUM BLOODon 11-20-2021 Magnesium [Mass/Vol] 2.1 mg/dL Normal 1.9-2.7 [facility] Comment on above: Performed By: #### [id number] #### [facility] [address] [place] [address], [place] PHOSPHORUS BLOODon Phosphate [Mass/Vol] 7.1 mg/dL High 2.5-5.0 [facility] Comment on above: Performed By: #### [id number] #### [facility] [id number] [place] [address] POINT OF CARE GLUCOSEon Glucose [Mass/Vol] 477 mg/dL Critically high 74-106 [facility] Comment on above: Performed By: #### C LIBERTAD #### [facility] [address] [address] [address] Kelsie Dominguez PORTABLE CHEST 1 VIEWon PORTABLE CHEST 1 VIEW [facility] Department of Radiology [address] [place] [address] Patient Name: RAQUEL VILA : 1965 Sex: F Age: Race: White Pt. Location: [facility] Patient Status: E Ordered Date: 11/20/2021 [...] Electronically signed: Aziza Funes M.D.. Transcribed by: [email or web address], User Resident: Electronically Signed by: AZIZA FUNES @ 11/20/2021 09:02 PM Normal [facility] Comment on above: Order Comment: Check E.T. Position PROF 14(COMP METB)on 022 Albumin [Mass/Vol] 3.4 g/dL Normal 3.4-5.0 [facility] Comment on above: Performed By: #### C MP, CMADM, BNP #### [facility] [address] [place] [address] Dr. Kelsie Dominguez Albumin/Globulin [Mass ratio] 0.9 {ratio} Normal [facility] Comment on above: Performed By: #### C MP, CMADM, BNP #### [facility] [address] [place] [address] Dr. Kelsie Dominguez ALP [Catalytic activity/Vol] 161 U/L Critically high 46-116 [facility] Comment on above: Performed By: #### C MP, CMADM, BNP #### [facility] [address] [address] [address] Kelsie Dominguez ALT [Catalytic activity/Vol] 91 U/L Critically high 14-59 [facility] Comment on above: Performed By: #### C MP, CMADM, BNP #### [facility] [address] [address] [address] Kelsie Dominguez Anion gap [Moles/Vol] 29.0 mmol/L Normal [facility] Comment on above: Performed By: #### C MP, CMADM, BNP #### [facility] [address] [address] [address] Kelsie Dominguez AST [Catalytic activity/Vol] 134 U/L Critically high 15-37 [facility] Comment on above: Performed By: #### C MP, CMADM, BNP #### [facility] [address] [address] [address] Kelsie Dominguez Bilirubin [Mass/Vol] 1.0 mg/dL Normal 0.2-1.0 [facility] Comment on above: Performed By: #### C MP, CMADM, BNP #### [facility] [address] [address] [address] Kelsei Dominguez Calcium [Mass/Vol] 8.9 mg/dL Normal 8.5-10.1 [facility] Comment on above: Performed By: #### C MP, CMADM, BNP #### [facility] [address] [address] [address] Kelsie Dominguez Chloride [Moles/Vol] 98 mmol/L Normal 98-107 [facility] Comment on above: Performed By: #### C MP, CMADM, BNP #### [facility] [address] [place] [address] Dr. Kelsie Dominguez CO2 [Moles/Vol] 15.6 mmol/L Critically low 21.0-32.0 [facility] Comment on above: Performed By: #### C MP, CMADM, BNP #### [facility] [address] [place] [address] Dr. Kelsie Dominguez Creatinine [Mass/Vol] 2.18 mg/dL Critically high 0.55-1.02 [facility] Comment on above: Performed By: #### C MP, CMADM, BNP #### [facility] [address] [place] [address] Dr. Kelsie Dominguez EGFR-AF HAITIAN 28 mL/min/1.73m2 Critically low >=60 [facility] Comment on above: Performed By: #### C MP, CMADM, BNP #### [facility] [address] [place] [address] Dr. Kelsie Dominguez EGFR-NON AF HAITIAN 23 mL/min/1.73m2 Critically low >=60 [facility] Comment on above: Performed By: #### C MP, CMADM, BNP #### [facility] [address] [place] [address] Dr. Kelsie Dominguez Globulin (S) [Mass/Vol] 3.9 g/dL Normal [facility] Comment on above: Performed By: #### C MP, CMADM, BNP #### [facility] [address] [address] [address] Kelsie Dominguez Glucose [Mass/Vol] 587 mg/dL Critically high 74-106 [facility] Comment on above: Performed By: #### C MP, CMADM, BNP #### [facility] [address] [address] [address] Kelsie Dominguez Potassium [Moles/Vol] 6.6 mmol/L Critically high 3.5-5.1 [facility] Comment on above: Performed By: #### C MP, CMADM, BNP #### [facility] [address] [address] [address] Kelsie Dominguez Protein [Mass/Vol] 7.3 g/dL Normal 6.4-8.2 [facility] Comment on above: Performed By: #### C MP, CMADM, BNP #### [facility] [address] [address] [address] Kelsie Dominguez Sodium [Moles/Vol] 136 mmol/L Normal 136-145 [facility] Comment on above: Performed By: #### C MP, CMADM, BNP #### [facility] [address] [address] [address] Kelsie Dominguez Urea nitrogen [Mass/Vol] 25.0 mg/dL Critically high 7.0-18.0 [facility] Comment on above: Performed By: #### C MP, CMADM, BNP #### [facility] [address] [address] [address] Kelsie Dominguez Urea nitrogen/Creatinine [Mass ratio] 11.5 mg/mg Normal [facility] Comment on above: Performed By: #### C MP, CMADM, BNP #### [facility] [address] [address] [address] Kelsie Dominguez PROTIMEon 11-20-2021 INR Coag (PPP) [Relative time] 1.06 {INR} Normal [facility] Comment on above: Performed By: #### V ITAD #### [facility] [address] [address] [address] Kelsie Dominguez INR GUIDELINES SEE BELOW Normal [facility] Comment on above: Result Comment: EDDI RED INR: 2.0 - 3.0 CONDITIONS NOT LISTED BELOW 2.5 - 3.5 FOR PROSTHETIC HEART VALVE REPLACEMENT 2.5 - 3.5 RECURRENT THROMBOSIS Performed By: #### V ITAD #### [facility] [address] [address] [address] Kelsie Dominguez PT Coag (PPP) [Time] 11.4 s Normal 9.0-11.6 [facility] Comment on above: Performed By: #### V ITAD #### [facility] [address] [address] [address] Kelsie Dominguez PTTon 11-20-2021 aPTT Coag (Bld) [Time] 29.0 s Normal 22.3-36.2 [facility] Comment on above: Performed By: #### V ITAD #### [facility] [address] [place] [address] Dr. Kelsie Dominguez TROPONIN-Ion 11-20-2021 Troponin I.cardiac [Mass/Vol] 0.01 ng/mL Normal 0.00-0.04 [facility] Comment on above: Result Comment: REFE RENCE RANGES: 0.00 - 0.04 ng/ml NORMAL 0.05 - 0.50 ng/ml INDETERMINATE > 0.50 ng/ml CONSISTENT WITH AN M.I. Performed By: #### [id number] #### [facility] [address] [facility] [place] [place] [address], [facility] URINALYSISon 11-20-2021 Appearance (U) CLEAR Normal CLEAR [facility] Comment on above: Order Comment: Yes: Add to Previous draw if able Performed By: #### 1 [id number] #### [facility] [address] [facility] [place] [address], [facility] [place] Bilirubin Ql (U) Negative Normal NEGATIVE The [facility] Comment on above: Order Comment: Yes: Add to Previous draw if able Performed By: #### 1 0008 #### [facility] [address] [place] [address], [facility] Color (U) YELLOW Normal YELLOW The [facility] Comment on above: Order Comment: Yes: Add to Previous draw if able Performed By: #### 1 0008 #### [facility] [address] [place] [address], [facility] EPIS NONE SEEN Normal FEW,OCC,NONE SEEN The [facility] Comment on above: Order Comment: Yes: Add to Previous draw if able Performed By: #### 1 0008 #### [facility] [address] [place] [address], [facility] Glucose Ql (U) >=1000 Abnormal NEGATIVE The [facility] Comment on above: Order Comment: Yes: Add to Previous draw if able Performed By: #### 1 0008 #### [facility] [address] [place] [address], [facility] Hemoglobin Ql (U) SMALL Abnormal NEGATIVE The [facility] Comment on above: Order Comment: Yes: Add to Previous draw if able Performed By: #### 1 0008 #### [facility] [address] [place] [address], [place] KETONE Negative Normal NEGATIVE The [facility] Comment on above: Order Comment: Yes: Add to Previous draw if able Performed By: #### 1 0008 #### [facility] [address] [place] [address], [place] LEUK DORIS Negative Normal NEGATIVE The [facility] Comment on above: Order Comment: Yes: Add to Previous draw if able Performed By: #### 1 0008 #### [facility] [address] [place] [address], [place] MUCUS THREADS OCC Abnormal NONE SEEN The [facility] Comment on above: Order Comment: Yes: Add to Previous draw if able Performed By: #### 1 0008 #### [facility] [address] [place] [address], [place] Nitrite Ql (U) Negative Normal NEGATIVE The [facility] Comment on above: Order Comment: Yes: Add to Previous draw if able Performed By: #### 1 0008 #### [facility] [address] [facility]. [address] pH (U) 6.0 [pH] Normal 5.0-8.0 The [facility] Comment on above: Order Comment: Yes: Add to Previous draw if able Performed By: #### 1 0008 #### [facility] [address] [facility] [place] [address], [facility] Protein Ql (U) 30 Abnormal NEGATIVE The [facility] Comment on above: Order Comment: Yes: Add to Previous draw if able Performed By: #### 1 0008 #### [facility] [address] [facility] [place] [address], [facility] RBC 0-2 Abnormal NONE SEEN The [facility] Comment on above: Order Comment: Yes: Add to Previous draw if able Performed By: #### 1 0008 #### [facility] [address] [facility] [place] [place] [address], [facility] SPEC GRAV 1.015 Normal 1.015-1.[address] [facility] Comment on above: Order Comment: Yes: Add to Previous draw if able Performed By: #### 1 0008 #### [facility] [address] [facility] [place] [place] [address], [facility] WBC UA 0-2 Abnormal NONE SEEN The [facility] Comment on above: Order Comment: Yes: Add to Previous draw if able Performed By: #### 1 0008 #### [facility] [address] [facility] [place] [place] [address], [facility] XR CHEST 1 Von 11-20-2021 XR CHEST [...] by: AMARA DAVISON Date: 2021-11-20 17:47 Normal [facility] ECHOCARDIO M/2D COMPLETEon 0 10-02-2021 ECHOCARDIO M/2D COMPLETE Patient: RAQUEL VILA Exam Date: 10/02/2021 : 1965 Gender:F Ordering : DR KATHERYN NIXON M.D. Admission #: [id number] Family : SHAIKH Silvino JACQUES . Order #: [id number] CLICK HERE TO VIEW EXAM ECHOCARDIOGRAM REPORT [...] Nixon M.D. on 10/03/2021 at 18:42 Normal [facility] HEAD_NECKon 09-17-2021 [facility] HEAD_NECK EXAM: US HEAD_NEC K HISTORY: Mass [...] by: AMARA DAVISON Date: 2021-09-17 09:22 Normal [facility] US THYROIDon 09-17-2021 US THYROID EXAMINATION: [...] one year is recommended. TR 4: The [employer] TI-RADS committee's white paper recommendations for thyroid lesions classified as TR4 (moderately suspicious) are listed below: > 1.0 cm. Follow-up ultrasound in 1, 2, 3, and 5 years. > 1.5 cm. FNA. J. Am Alfonso Radiol 2017;14:587-595. Electronically authenticated by: AMARA DAVISON Date: 2021-09-17 09:29 Normal [facility] Vital Signs Date Time Vital Sign Value Performing Clinician Facility 10-15-2023 15:34-0400 Body height 162.56 cm [facility] 10-15-2023 15:34-0400 Body mass index (BMI) [Ratio] 39.6 kg/m2 [facility] 10-15-2023 15:34-0400 Body temperature 97.8 [degF] [facility] 10-15-2023 15:34-0400 Body weight 104.83 kg [facility] 10-15-2023 15:34-0400 Diastolic blood pressure 71 mm[Hg] [facility] 10-15-2023 15:34-0400 Heart rate 85 /min [facility] 10-15-2023 15:34-0400 Respiratory rate 18 /min [facility] 10-15-2023 15:34-0400 SaO2% (BldA) [Mass fraction] 96 % [facility] 10-15-2023 15:34-0400 Systolic blood pressure 135 mm[Hg] [facility] 02-08-2022 15:00-0400 Body height 165.1 cm Margarita Truman Other [email or web address] Other 02-08-2022 15:00-0400 Body mass index (BMI) [Ratio] 42.66 kg/m2 Margarita Truman Other [email or web address] Other 02-08-2022 15:00-0400 Body temperature 96.6 [degF] Margarita Truman Other [email or web address] Other 02-08-2022 15:00-0400 Body weight 116.3 kg Margarita Truman Other [email or web address] Other 02-08-2022 15:00-0400 Diastolic blood pressure 76 mm[Hg] Margarita Truman Other [email or web address] Other 02-08-2022 15:00-0400 Respiratory rate 18 /min Margarita Truman Other [email or web address] Other 02-08-2022 15:00-0400 SaO2% (BldA) [Mass fraction] 96 % Margarita Truman Other [email or web address] Other 02-08-2022 15:00-0400 Systolic blood pressure 114 mm[Hg] Margarita Truman Other [email or web address] Other 12-06-2021 12:35-0400 Body height 165.1 cm Isaias Gomez Other [email or web address] Other 12-06-2021 12:35-0400 Body mass index (BMI) [Ratio] 43.26 kg/m2 Isaias Gomez Other [email or web address] Other 12-06-2021 12:35-0400 Body temperature 97.3 [degF] Isaias Gomez Other [email or web address] Other 12-06-2021 12:35-0400 Body weight 117.94 kg Isaias Gomez Other [email or web address] Other 12-06-2021 12:35-0400 Respiratory rate 18 /min Isaias Gomez Other [email or web address] Other 12-06-2021 12:35-0400 SaO2% (BldA) [Mass fraction] 93 % Isaias Gomez Other [email or web address] Other 10-10-2021 14:05-0400 Blood Pressure Location Nalini LANDERS [facility] [place] 10-10-2021 14:05-0400 Diastolic blood pressure 78 mm[Hg] Nalini LANDERS [facility] [place] 10-10-2021 14:05-0400 Heart rate 72 /min Nalini JULIENL General Surgery [place] 10-10-2021 14:05-0400 Respiratory rate 16 /min Nalini JULIENL [facility] [place] 10-10-2021 14:05-0400 Systolic blood pressure 120 mm[Hg] Nalini JULIENL [facility] [place] 08-08-2021 16:00-0400 Body height 165.1 cm Margarita Truman Other [email or web address] Other 08-08-2021 16:00-0400 Body mass index (BMI) [Ratio] 48.89 kg/m2 Margarita Truman Other [email or web address] Other 08-08-2021 16:00-0400 Body temperature 97.8 [degF] Margarita Truman Other [email or web address] Other 08-08-2021 16:00-0400 Body weight 133.27 kg Margarita Truman Other [email or web address] Other 08-08-2021 16:00-0400 Diastolic blood pressure 78 mm[Hg] Margarita Truman Other [email or web address] Other 08-08-2021 16:00-0400 Respiratory rate 18 /min Margarita Truman Other [email or web address] Other 08-08-2021 16:00-0400 SaO2% (BldA) [Mass fraction] 95 % Margarita Truman Other [email or web address] Other 08-08-2021 16:00-0400 Systolic blood pressure 122 mm[Hg] Margarita Pino Other [facility] Other Encounters Encounter Date Encounter Type Care Provider Facility Start: 10-18-2023 End: 10-18-2023 ambulatory [facility] Start: 10-15-2023 End: 10-15-2023 ambulatory [facility] Work Phone: Start: 10-15-2023 End: 10-15-2023 Patient encounter procedure [facility] Work Phone: Start: 10-08-2023 End: 10-08-2023 ambulatory TILLMAN FAWWAD Not Available Start: 10-01-2023 End: 10-01-2023 ambulatory [facility] Start: 09-13-2023 ambulatory [facility] Start: 09-09-2023 End: 09-09-2023 ambulatory TILLMAN FAWWAD Not Available Start: 08-19-2023 End: 08-19-2023 ambulatory TILLMAN FAWWAD Not Available Start: 08-12-2023 End: 08-12-2023 ambulatory TILLMAN FAWWAD Not Available Start: 07-29-2023 ambulatory [facility] Start: 07-25-2023 End: 07-25-2023 ambulatory JANIA [facility] Start: 06-13-2023 End: 06-13-[address] [place] [address] Start: 05-30-2023 End: 05-30-2023 ambulatory [facility] Start: 05-24-2023 End: 05-24-2023 ambulatory [facility] Start: 05-07-2023 End: 05-07-2023 ambulatory TILLMAN FAWWAD Not Available Start: 04-25-2023 End: 04-25-2023 ambulatory JANIA GUTIERREZ [facility] Start: 12-07-2022 End: 12-07-2022 ambulatory [facility] Start: 11-01-2022 ambulatory Nalini LANDERS Facility:[facility] Start: 08-07-2022 End: 08-08-2022 ambulatory MARGARITA TRUMAN Facility:[facility] Start: 06-14-2022 End: 06-14-2022 ambulatory Margarita Truman Other [email or web address] Other Start: 06-14-2022 Telephone encounter Margarita Truman [facility] Start: 05-31-2022 End: 05-31-2022 ambulatory Giovana Crum Other [email or web address] Other Start: 05-31-2022 Telephone encounter Giovana Crum [facility] Start: 03-23-2022 End: 03-31-2022 ambulatory SHAIKH Ashley JACQUES Facility:[facility] Start: 02-14-2022 End: 02-15-[address] DOCTOR SHAHID Facility:[facility] Start: 02-08-2022 End: 02-08-2022 ambulatory Margarita Truman Other [email or web address] Other Start: 02-08-2022 Office outpatient visit 25 minutes Margarita Truman [facility] Start: 01-31-2022 End: 02-01-2022 ambulatory MARGARITA TRUMAN Facility:[facility] Start: 01-10-2022 End: 01-11-2022 ambulatory Nalini LANDERS Facility:[facility] Start: 01-10-2022 End: 01-10-2022 Patient encounter procedure Nalini LANDERS General Surgery Shaheed/Maricruz Quintero Start: 12-27-2021 End: 12-28-[address] NALINI LANDERS . Facility:[facility] Start: 12-06-2021 End: 12-06-2021 ambulatory Isaias Gomez Other [email or web address] Other Start: 12-06-2021 Office outpatient visit 15 minutes Isaias Gomez [facility] Start: 11-21-2021 End: 11-21-2021 ambulatory UNKNOWN PROVIDER Facility:[facility] Start: 11-20-2021 End: 11-24-2021 Evaluation and management of inpatient ERIC CONTE Facility:[facility] Start: 11-20-2021 End: 11-20-[address] AMARA DAVISON Facility: Start: 10-10-2021 End: 10-10-2021 Patient encounter procedure Nalini LANDERS General Surgery Nill/Maricruz Quintero Start: 10-02-2021 End: 10-03-[address] KATHERYN NIXON Facility:[facility] Start: 09-16-2021 End: 09-17-[address] AMARA DAVISON Facility: Start: 08-08-2021 End: 08-08-2021 ambulatory Margarita Truman Other [email or web address] Other Start: 08-08-2021 Office outpatient visit 25 minutes Margarita Truman [facility] Ne[facility] Procedures Date Procedure Procedure Detail Performing [...] function 2000 panel - Serum or Plasma [facility] Immunizations Immunization Date Immunization Notes Care Provider Fa cility NEGATED: Highlighted row has not occurred!05-18-2020 influenza virus vaccine, unspecified formulation Nalini LANDERS [facility] [place] Payers Date Payer Category Payer Unknown [id number] 2.16. [id number] 1965 Unknown [id number] 2.16.8 40.1.967833.3.579.2.647 1965 Unknown [id number] 2.16.84 0.1.083257.3.579.2.593 1965 Unknown [id number] 2.16.84 0.1.161889.3.579.2.593 1965 Unknown [id number] 2.16.84 0.1.250241.3.579.2.593 1965 Unknown [id number] 2.16.84 0.1.329133.3.579.2.593 1965 Unknown [id number] 2.16.84 0.1.665726.3.579.2.593 1965 Unknown [id number] 2.16.84 0.1.304557.3.579.2.593 1965 Unknown [id number] 2.16.84 0.1.964017.3.579.2.593 1965 Unknown [id number] 2.16.84 0.1.195233.3.579.2.593 1965 Unknown [id number] 2.16.8 40.1.408272.3.579.2.727 1965 Unknown [id number] 2.16.8 40.1.531515.3.579.2.727 1965 Unknown [id number] 2.16.8 40.1.872787.3.579.2.1286 1965 Unknown [id number] 2.16.8 40.1.583375.3.579.2.1286 1965 Unknown [id number] 2.16.8 40.1.502271.3.579.2.1285 1965 Unknown [id number] 2.16.8 40.1.361954.3.579.2.1285 1965 Unknown [id number] 2.16.8 40.1.947611.3.579.2.1285 1965 Unknown [id number] 2.16.84 0.1.234138.3.579.2.9 1965 Unknown [id number] 2.16.84 0.1.764879.3.579.2.9 1965 Unknown [id number] 2.16.84 0.1.152963.3.579.2.1258 1965 Unknown [id number] 2.16.84 0.1.573813.3.579.2.9 1965 Unknown [id number] 2.16.84 0.1.176505.3.579.2.9 1965 Unknown [id number] 2.16.8 40.1.378791.3.579.2.1285 1965 Unknown [id number] 2.16.8 40.1.419411.3.579.2.1285 1965 Unknown [id number] 2.16.8 40.1.679656.3.579.2.1285 1965 Unknown [id number] 2.16.8 40.1.474895.3.579.2.1285 1965 Unknown [id number] 2.16.84 0.1.753209.3.579.2.1286 1959 Medicaid [id number] 1959 Unknown [id number] Self-pay Self Pay [id number] Unknown [id number] 2.16.840.1.355034.19 Unknown [id number] Social History Date Type Detail Facility Start: 10-10-2021 End: 10-15-2023 Tobacco smoking status Ex-smoker (finding) [facility] [employer] Other Tobacco smoking status Never Gener al Surgery [employer] Sex Assigned At Female [facility] Other Start: 1965 Sex Assigned At Female F [facility] Functional Status Date Assessment Result Facility 10-10-2021 Functional Status N/A General [facility] [employer] Clinical Notes 08-08-2021 to 05-24-2023 Note Date & Type Note Facility 05-24-2023 Note [facility] Subjective Raquel Vila is a [...] No robbi (more content not included)... [facility] 12-07-2022 Note [place] [facility] Subjective Raquel Vila is a [...] Grade I: (more content not included)... [facility] 02-08-2022 Evaluation note Encounter Date Diagnosis [...] diuresis. Advised her to adequately hydrate herself. [email or web address] Other 09-07-2022 NoteOPERATIVE NOTE OPERATION DATE: 12/27/2021 [...] problems or questions. CC: Shaikh Ambar M.D.[id number] Evaluation note* Encounter Date Diagnosis Assessment Notes [...] days. She understands and agrees with plan. [email or web address] Other 08-05-2022 NoteMR#: [id number] I [facility] Pt. Name: Raquel Vila Admitted: 11/20/2021 [...] transcutaneously paced and sent to the [facility] for further management. The patient was intubated and mechanically ventilated prior to her transfer to [facility]. The patient was admitted to the [...] Conte MD Date Trans: 11/24/2021 04:50 P/jenny [id number] cc: Lisbeth Grace M.D. [address] [place] [address] Evaluation note* Encounter Date Diagnosis Assessment [...] Will prescribe allopurinol if she gets symptoms. [email or web address] Other Evaluation + Plan note No data available for this section General Surgery [place] Evaluation noteNo [facility] Other Evaluation note* Diagnosis Onset Date Resolution Status CKD (chronic kidney disease) stage 3, GFR 30-59 ml/min acute [id number] acute Hyperuricemia acute Iron deficiency acute Type 2 diabetes mellitus wit h diabetic chronic kidney disease acute Vitamin D deficiency acute [facility] Work Phone: Hiswrkt general Narrative - Reported* Type Description Date [...] PNEUMONIA, BLOOD CLOT IN THE LUNG 07/2020 [email or web address] Other His[facility] general Narrative - Reported* Type Description Date [...] REACTION MIXING MET OPROLOL AND LEXAPRO 11/2021 [email or web address] Other Hiswpiy general Narrative - Reported* Type Description Date Medical History 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 Medical History HYPERTENSION Medical History VITAMIN D DEFICIENCY Medical History MIXED HYPERLIPIDEMIA Medical History PNEUMONIA, PULMONARY EDEMA, O2 LOW FOUND A CLOT IN LUNG [facility] UNRESPONSIVE AND LOW HEART RATE Surgical History 1 Surgical History NASAL SURGERY Surgical History TONSIL ADNOIDS REMOVED Surgical History RIGHT ROTATOR CUFF Surgical History CYST REMOVED FROM SCALP AREA Hospitalization History SEE ABOVE Hospitalization History ABLASION FOR HEART X5 DA Y [facility] Hospitalization History PNEUMONIA, BLOOD CLOT IN THE LUNG 07/2020 Hospitalization History DRUG REACTION MIXING MET OPROLOL AND LEXAPRO 11/2021 [email or web address] Other Hospital Discharge instructions No data available for this section General Surgery [place] Progress note No data available for this [...] kidney disease) stage 3, GFR 30-59 ml/min [id number] Hyperuricemia Iron deficiency Type 2 diabetes mellitus [...] CREATED AUTHOR AUTHOR'S ORGANIZ ATION 12/01/2021 [facility] DATE CREATED AUTHOR AUTHOR'S ORGANIZ ATION 09/05/2022 [facility] DATE CREATED AUTHOR AUTHOR'S ORGANIZ ATION 11/02/2022 [facility] DATE CREATED AUTHOR AUTHOR'S ORGANIZ ATION 10/01/2023 [facility] DATE CREATED AUTHOR AUTHOR'S ORGANIZ ATION 10/09/2023 [facility] DATE CREATED AUTHOR AUTHOR'S ORGANIZ ATION 10/11/2023 [facility] DATE CREATED AUTHOR AUTHOR'S ORGANIZ ATION 10/20/2023 [facility] Goals (unrecognized section and content) Goals [...] BE BASED ON THE PRIMARY CLINICAL RECORDS. [employer] [facility]. provides no warranty or guarantee of the accuracy or completeness of information in this document.
== END 2023-10-22 21:01 | disposition home or self-care (01) ==
LOC: SLEEP 10-23 07:41
PROVIDERS: PCP Internal Medicine; Visit Provider Internal Medicine
DX: G47.33 Obstructive sleep apnea (adult) (pediatric) (principal)
CPT/HCPCS: 95811

== ENCOUNTER 2023-12-30 13:38 | Outpatient (RCR) | payer OTHER, SELFPAY | END 2024-03-18 14:22 | disposition home or self-care (01) | LOC: PT 13:38 | PROVIDERS: Visit Provider Orthopaedic Surgery Sports Medicine | DX: M25.512 Pain in left shoulder (principal); S46.012D Strain of muscle(s) and tendon(s) of the rotator cuff of left shoulder, subsequent encounter; R53.1 Weakness | CPT/HCPCS: 97110; 97140; 97162 ==

== ENCOUNTER 2024-01-13 09:40 | Outpatient (OUT) | payer OTHER, SELFPAY ==
--- OUTSIDE RECORDS SUMMARY | 2023-10-22 20:52 | XMS_ITS | CCD ---
Author Organization [facility] Care Team Providers Care Shirt Creaser Name Role Phone Lisbeth Grace Primary Care [...] Care Unavailable MISC, DR ASHRAF Admitting Unavailable IDAVILLE, DR DAMIEN Lowry Consulting Unavailable MISC, DR [...] TILLMAN H Primary Care Unavailable JUAN CARLOS Tripathi, BRITTNEY Attending Unavailable JUAN CARLOS ., BRITTNEY Consulting Unavailable NILL ., DR GAYLE Admitting Unavailable NILL ., DR GAYLE Attending Unavailable NILL ., DR GAYLE Consulting Unavailable FAWWAD, TILLMAN Primary Care Unavailable CAROLA, MAJO Bautista Consulting Unavailable Nalini LANDERS Attending Unavailable Nalini LANDERS Attending Unavailable FAWWAD, TILLMAN Referring Unavailable FAWWAD, [facility] Primary Care Unavailable FAWWAD, TILLMAN Referring Unavailable FAWWAD, [facility] Primary Care Unavailable FAWWAD, TILLMAN Referring Unavailable FAWWAD, [facility] Primary Care Unavailable FAWWAD, TILLMAN Referring Unavailable FAWWAD, [facility] Primary Care Unavailable RIKKI MILTON Attending Unavailable FAWWAD, TILLMAN Referring Unavailable FAWWAD, [facility] Primary Care Unavailable FAWWAD, TILLMAN Attending Unavailable FAWWAD, TILLMAN Attending Unavailable FAWWAD, TILLMAN Attending Unavailable FAWWAD, TILLMAN Attending Unavailable FAWWAD, TILLMAN Attending Unavailable MOUKARBELKATHERYN Attending Unavailable MOUKARBELKATHERYN Attending Unavailable MATTJANIA SOLO Attending Unavailable FAWWAD, TILLMAN Referring Unavailable FAWWAD, [facility] Primary Care Unavailable MATTJANIA SOLO Attending Unavailable FAWWAD, TILLMAN Referring Unavailable FAWWAD, [facility] Primary Care Unavailable JANIA GUTIERREZ Attending Unavailable FAWWAD, TILLMAN Referring Unavailable FAWWAD, [facility] Primary Care Unavailable [facility] Referring Unavailable FAWWAD, [facility] Primary Care Unavailable JANIA GUTIERREZ Attending Unavailable FAWWAD, TILLMAN Referring Unavailable FAWWAD, [facility] Primary Care Unavailable Allergies Allergy Classification Reported Allergen(s) Allergy Type Date of Onset Reaction(s) Facility (1 source) No Known Medication Allergies; Translations: [No Known Medication Allergies] Propensity to adverse reactions (disorder) [facility] Repository Medications Current Medications Medication Drug Class(es) Dates Sig (Normalized) Sig (Original) 8 hr acetaminophen 650 mg extended release oral tablet (4 sources) Start: 06-25-2024 take 1950 mg by mouth every twelve hours Acetaminophen Active 1950 MG PO Every 12 hours October 15, 2023 12:00am take 2 tablets by mo [facility] every eight hours as needed Acetaminophen ER 650 MG 2 tablets as nee ded Orally every 8 hrs Active take 2 tablets by mo uth every eight hours Acetaminophen ER 650 MG 2 tablets as nee ded Orally every 8 hrs Active acetaminophen 500 mg / diphenhydrAMINE hydrochloride 25 mg oral tablet (1 source) Histamine-1 Receptor Antagonist Start: 10-15-2023 take 2 tablets by mouth once daily at bedtime Diphenhydramine-Acetaminophen (Acetaminophen Pm) 25-500 mg tablet Active 2 TAB PO Daily at bedtime October 15, 2023 12:00am ALPRAZolam 0.5 mg oral tablet (1 source) Benzodiazepine Start: 10-15-2023 take 0.5 mg by mouth once daily Alprazolam Active 0.5 MG PO Daily October 15, 2023 12:00am apixaban 5 mg oral tablet (2 sources) Factor Xa Inhibitor take 1 tablet by mouth every twelve hours Eliquis 5 MG 1 tab(s) Orally bid Active aspirin 81 mg delayed release oral tablet (8 sources) Platelet Aggregation Inhibitor, Nonsteroidal Anti-inflammator y Drug Start: 10-15-2023 take 81 mg by mouth once daily Aspirin Active 81 MG PO Daily October 15, 2023 12:00am Start: 05-04-2020 take 1 tablet by bryan th once daily aspirin 81 mg Oral EC Tab 81 mg = 1 tab(s), Oral, Daily, Refills(s) 0 Start Date: 05/04/20 Status: Ordered take 1 tablet by bryan th once daily Aspirin 81 81 MG 1 tablet Orally Once a day Active atorvastatin 20 mg oral tablet (7 sources) HMG-CoA Reductase Inhibitor Start: 05-04-2020 take 1 tablet by mouth once daily atorvastatin 20 mg Tab 20 mg = 1 tab(s), Oral, Daily, Refills(s) 0 Start Date: 05/04/20 Status: Ordered buPROPion (1 source) Aminoketone Start: 10-15-2023 Bupropion Hcl Active MG PO October 15, 2023 12:00am busPIRone hydrochloride 7.5 mg oral tablet (1 source) Start: 10-15-2023 take 7.5 mg by mouth twice daily Buspirone Active 7.5 MG PO Twice daily October 15, 2023 12:00am calcium (as carbonate)-vitamin D 600 mg-800 intl units oral tablet (2 sources) Start: 05-04-2020 take 1 tablet by mouth twice daily calcium (as carbonate)-vitamin D 600 mg-800 intl units oral tablet 1 tab(s), Oral, BID Start Date: 05/04/20 Status: Ordered carvedilol 3.125 mg oral tablet (5 sources) alpha-Adrenergic John, beta-Adrenergic John Start: 10-15-2023 take 3.125 mg by mouth twice daily Carvedilol Active 3.125 MG PO Twice daily October 15, 2023 12:00am take 1 tablet by bryan th every twelve hours Carvedilol 3.125 MG 1 tablet with food Orally Twice a day Active Carvedilol Activ e cholecalciferol 1.25 mg oral capsule (1 source) Vitamin D Start: 10-15-2023 take 38248 [IU] by mouth every week Cholecalciferol (Vitamin D3) Active 34488 UNIT PO every week October 15, 2023 12:00am CHROMIUM PICOLINATE (5 sources) take 1 tablet by mouth once daily Chromium Picolinate 1000 MCG 1 tablet Orally Once a day Active dapagliflozin 10 mg oral tablet (6 sources) Sodium-Glucose Cotransporter 2 Inhibitor Start: 10-15-2023 take 1 tablet by mouth once daily Dapagliflozin Propanediol (Farxiga) 10 mg tablet Active 10 MG PO Daily October 15, 2023 12:00am Start: 09-26-2021 take 2 tablets by mo [facility] once daily Farxiga 5 mg oral tablet [...] by mouth every week Ergocalciferol 1.25 MG (48354 UT) 1 capsule Orally Q week for 90 day(s) Jul, Active escitalopram 20 mg oral tablet (8 sources) Serotonin Reuptake Inhibitor Start: 10-15-2023 take 20 mg by mouth once daily Escitalopram Oxalate Active 20 MG PO Daily October 15, 2023 12:00am Start: 09-26-2021 take 1 tablet by bryan th once daily Lexapro 20 mg Tab 20 mg = 1 tab(s), Oral, Daily, Refills(s) 0 Start Date: 09/26/21 Status: Ordered ferrous sulfate (5 sources) take 1 tablet by bryan th every twenty-four hours Ferrous Sulfate 325 (65 Fe) MG 1 tablet Orally Once a day Active take 1 tablet by mouth once reinaldo y Ferrous Sulfate 325 (65 Fe) MG 1 tablet Orally Once a day Active furosemide 40 mg oral tablet (9 sources) Loop Diuretic Start: 10-15-2023 Furosemide Act beronica 20 MG PO Every 48 hours October 15, 2023 12:00am on odd days Start: 10-15-2023 Furosemide Act beronica 40 MG PO Every 48 hours October 15, 2023 12:00am on even days Start: 05-04-2020 take 2 tablets by mo ut once daily Lasix 40 mg Tab 80 [...] DAY Active lisinopril 2.5 mg oral tablet (8 sources) Angiotensin Converting Enzyme Inhibitor Start: 10-15-2023 take 2.5 mg by mouth once daily Lisinopril Active 2.5 MG PO Daily 90 October 15, 2023 12:00am Start: 08-08-2021 take 1 tablet by bryan th once daily lisinopril 2.5 mg Tab 2.5 mg = 1 tab(s), Oral, Daily, Refills(s) 0 Start Date: 10/10/21 Status: Ordered Magnesium (5 sources) Magnesium 400 MG as directed Orally Once a day Active magnesium oxide 400 mg oral tablet (3 sources) Start: 10-15-2023 take 400 mg by mouth once daily Magnesium Oxide Active 400 MG PO Daily October 15, 2023 12:00am Start: 09-26-2021 take 1 tablet by bryan th once daily magnesium oxide 400 mg Tab 400 mg = 1 tab(s), Oral, Daily, Refills(s) 0 Start Date: 09/26/21 Status: Ordered 24 hr metoprolol succinate 200 mg extended release oral tablet (8 sources) beta-Adrenergic John Start: 09-26-2021 metopr olol 200 mg ER Tab 200 mg = 1 tab(s), Oral, Daily, along with 100mg tab, Refills(s) 0 Start Date: 09/26/21 Status: Ordered Start: 05-04-2020 take 1 tablet by bryan th once daily Metoprolol succinate 100 mg ER Tablet = 1 tab(s), Oral, Daily, Refills(s) 0 Start Date: 05/04/20 Status: Ordered omeprazole 20 mg delayed release oral capsule (8 sources) Proton Pump Inhibitor Start: 10-15-2023 take 20 mg by mouth once daily Omeprazole Active 20 MG PO Daily October 15, 2023 12:00am Start: 10-10-2021 take 1 capsule by mo [facility] once daily omeprazole 20 mg Cap-DR 20 mg = 1 cap(s), Oral, Daily, Refills(s) 0 Start Date: 10/10/21 Status: Ordered pramipexole dihydrochloride 1 mg oral tablet (8 sources) Nonergot Dopamine Agonist Start: 10-15-2023 take 1 mg by mouth once daily at bedtime Pramipexole Active 1 MG PO Daily at bedtime October 15, 2023 12:00am Start: 05-04-2020 take 1 tablet by [facility] at bedtime pramipexole 1 mg Tab 1 mg = 1 tab(s), Oral, Bedtime, Refills(s) 0 Start Date: 05/04/20 Status: Ordered pregabalin 200 mg oral capsule (1 source) Start: 10-15-2023 take 200 mg by mouth twice daily Pregabalin Active 200 MG PO Twice daily October 15, 2023 12:00am + Complete Multi 18-0.8 & 290 MG (2 sources) + Compl ete Multi 18-0.8 & 290 MG as directed [...] the day Orally Once a day Active Semaglutide (Ozempic) 2 mg/dose (8 mg/3 mL) pen injector (1 source) Start: 10-15-2023 Semaglutide (Ozempic) 2 mg/dose (8 mg/3 mL) pen injector Active MG SUBCUT October 15, 2023 12:00am traZODone hydrochloride 100 mg oral tablet (1 source) Serotonin Reuptake Inhibitor Start: 10-15-2023 take 100 mg by mouth once daily at bedtime Trazodone Active 100 MG PO Daily at bedtime October 15, 2023 12:00am Problems Active Problems Problem Classification Problem Date Documented Date Episodic/Chronic Anxiety disorders (4 sources) Mixed anxiety and depressive disorder; Translations: [Other specified anxiety disorders] Onset: 1 09-26-2021 Chronic Chronic kidney disease (16 sources) Chronic kidney disease stage 4; Translations: [Chronic kidney disease, stage 4 (severe)] 10-15-2023 Chronic Congestive heart failure; nonhypertensive (3 sources) Diastolic heart failure; Translations: [Unspecified diastolic (congestive) heart failure] Onset: 2 09-26-2021 Chronic Deficiency and other anemia (5 sources) Anemia of renal disease; Translations: [Anemia in chronic kidney disease] Chronic Diabetes mellitus with complications (9 sources) Disorder of kidney due to diabetes mellitus; Translations: [Type 2 diabetes mellitus with diabetic chronic kidney disease] Onset: 2 Resolved: 2 Chronic Diabetes mellitus without complication (4 sources) Type 2 diabetes mellitus; Translations: [Type 2 diabetes mellitus without complications] Onset: 2 05-04-2020 Chronic Disorders of lipid metabolism (5 sources) Hyperlipidemia; Translations: [Hyperlipidemia, unspecified] Onset: 2 05-04-2020 Chronic Essential hypertension (4 sources) Hypertensive disorder; Translations: [Essential (primary) hypertension] Onset: 3 05-04-2020 Chronic Heart valve disorders (2 sources) Functional heart murmur 05-04-2020 Episodic Hypertension with complications and secondary hypertension (14 sources) Chronic kidney disease due to hypertension; [...] psychotic features] Onset: 1 Chronic Nutritional deficiencies (12 sources) Vitamin D deficiency; Translations: [Vitamin D deficiency, unspecified] Onset: 2 Resolved: 2 05-04-2020 Chronic Nutritional deficiencies (5 sources) Iron deficiency; Translations: [Iron deficiency] Onset: 2 Resolved: 2 Episodic Other circulatory disease (2 sources) Vascular insufficiency 05-04-2020 Episodic Other connective tissue disease (2 sources) Plantar fasciitis 05-04-2020 Episodic Other diseases of kidney and ureters (5 sources) Secondary hyperparathyroidism; Translations: [Secondary hyperparathyroidism of renal origin] Chronic Other ear and sense organ disorders (2 [...] Chronic Other nutritional; endocrine; and metabolic disorders (4 sources) Hyperuricemia without signs of inflammatory arthritis and tophaceous disease; Translations: [Other abnormal blood chemistry] Onset: 2 Resolved: 2 Episodic Other nutritional; endocrine; and metabolic disorders (1 source) Hyperuricemia; Translations: [Hyperuricemia without signs of inflammatory arthritis and tophaceous disease] 10-15-2023 Episodic Other skin disorders (4 sources) Trichilemmal cyst; Translations: [Pilar cyst] Onset: 2 Episodic Other skin disorders (2 sources) Infection of sebaceous cyst 05-04-2020 Episodic Rashmi-; endo-; and myocarditis; cardiomyopathy (except that caused by tuberculosis or sexually transmitted disease) (10 sources) Hypertrophic obstructive cardiomyopathy; Translations: [Obstructive hypertrophic cardiomyopathy] Onset: 2 05-04-2020 Chronic Peripheral and visceral atherosclerosis (2 sources) Peripheral vascular disease 09-26-2021 Chronic Residual codes; unclassified (2 sources) Sleep apnea 05-04-2020 Chronic Residual codes; unclassified (1 source) Obstructive sleep apnea (adult) (pediatric); Translations: [OBSTRUCTIVE SLEEP APNEA] Onset: 2 Chronic Residual codes; unclassified (2 sources) Insomnia 05-04-2020 Episodic Residual codes; unclassified (2 sources) Pain, unspecified; Translations: [PAIN UNSPECIFIED] Onset: 2 Episodic Residual codes; unclassified (1 source) Pain Onset: 4 Episodic Retinal detachments; defects; vascular occlusion; and [...] examination; Translations: [Encounter for pre-employment examination] Onset: 06-13-2023 Episodic Cardiac dysrhythmias (1 source) Bradycardia, unspecified; Translations: [...] 03-28-2022 Episodic Other aftercare (1 source) Other assisted (current) drug therapy; Translations: [OTH WELFARE AIDE CURRENT DRUG THERAPY] Onset: 01-04-2022 Episodic Other aftercare (1 source) alf (current) use of aspirin; Translations: [WELFARE AIDE CURRENT USE OF ASPIRIN] Onset: 01-04-2022 Episodic Other aftercare (1 source) 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 (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) use of insulin; Translations: [NURSING HOME CURRENT USE OF INSULIN] Onset: 01-04-2022 Episodic Other aftercare (1 source) alf (current) use of anticoagulants; Translations: [WELFARE AIDE CURRNT USE ANTICOAGULANTS] Onset: 11-22-2021 Episodic Other bone disease and musculoskeletal deformities (4 sources) Other specified disorders of bone density and structure, left thigh; Translations: [OTH D/O BONE DEN STRUCT LT THIGH] Onset: 02-14-2022 Episodic Other circulatory disease (2 sources) Other hypotension; Translations: [Other hypotension] Onset: 05-24-2023 Episodic Other diseases of kidney and ureters (2 sources) Disorder of kidney and ureter, unspecified; Translations: [Disorder of kidney and ureter, unspecified] Onset: 05-24-2023 Episodic Other lower respiratory disease (1 source) [...] MASS AND LUMP HEAD] Onset: 09-16-2021 Episodic Pulmonary heart disease (4 sources) H/O: pulmonary embolus; Translations: [Personal history of pulmonary embolism] Onset: 06-11-2022 09-26-2021 Episodic Residual codes; unclassified (1 source) Family [...] Test Name Value Interpretation Reference Range Facility 36on 10-10-2023 [address] Milton's office. [facility] [address]. Milton from [facility] is requesting clearance for shoulder arthroscopy scheduled for 10/31/2023. Please advise. Thanks. [facility] HBV surface Ab IA Qnon 06-13 Anti HBs quant. <8.00 Normal [facility] Comment on above: Result Comment: Vacc inated: >=12mIU/mL, Positive (Immune) Unvaccinated: <8mIU/mL, Negative (Not Immune) 8-11.99 mIU/mL: Indeterminate, (Considered Not Immune) Performed By: #### 5 193-8, 8014-3, 6476-6, 14020-9, 80214-9 #### [facility] ([id number]) [address] [place] [address], [address] [place] [address] MeV IgG IA Ql (S)on 06-13-19 24 RUBEOLA AB SCREEN 2.2 AI High <0.9 [facility] Comment on above: Result Comment: POSI TIVE: Antibody(IgG) detected. Indicates previous exposure to rubeola virus and immunity. Performed By: #### 5 193-8, 8014-3, 6476-6, 46528-8, 99391-9 #### [facility] ([id number]) [address] [place] [address], [address] [place] [address] MuV IgG IA Ql (S)on 06-13-19 24 MUMPS VIRUS IgG 4.0 AI High <0.9 [facility] Comment on above: Result Comment: Interpretation-------- <0.9 Negative 0.9 - 1.0 Equivocal >1.0 Positive Performed By: #### 5 193-8, 8014-3, 6476-6, 51112-9, 24098-9 #### [facility] ([id number]) [address] [place] [address], [address] [place] [address] Rubella virus IgG Qn (S)on 0 06-13-2023 RUBELLA IgG 104 IU/mL Normal [facility] Comment on above: Result Comment: Interpretation-------- <8 NEGATIVE-considered Not Immune 8-9 EQUIVOCAL-consider retesting with new specimen >9 POSITIVE-considered Immune Performed By: #### 5 193-8, 8014-3, 6476-6, 42481-0, 42854-7 #### [facility] ([id number]) [address] [place] [address], [address] [place] [address] VZV IgG IA Ql (S)on 06-13-19 VARICELLA IgG 1.6 AI High <0.9 [facility] Comment on above: Result Comment: Interpretation-------- <0.9 Negative 0.9 - 1.0 Equivocal >1.0 Positive Performed By: #### 5 193-8, 8014-3, 6476-6, 24664-6, 05931-9 #### [facility] ([id number]) [address] [place] [address], [address] [place] [address] Office Visiton 05-24-2023 Follow-up visit [id number] Jessica Vila 1965 F Date Provider Department [place] 05/24/2023 KATHERYN MARTINEZ ROLY Yap Family History Problem Relation Age of Onset Breast cancer Mother Family Status - Relation Status Age at Mother Level of Service:67166 MO OFFICE/OUTPATIENT ESTABLISHED MOD MDM 30 MIN Normal [facility] Office Visiton 12-07-2022 Follow-up visit [id number] Jessica Vila 1965 F Date Provider Department Center 12/07/2022 AmayaMARISELLONGKATHERYN [facility] Family History Problem Relation Age of Onset Breast cancer Mother Family Status - Relation Status Age at Mother Level of Service:81559 MO OFFICE/OUTPATIENT ESTABLISHED LOW MDM 20-29 MIN Reason for Visit and Comments: Follow-up [264868] - 6 MONTH FOLLOW UP Normal [facility] PTH INTACTon 08-08-2022 PTH, Intact 34 pg/mL Normal 15-65 [facility] Comment on above: Performed By: #### C BCMAN #### [facility] [address] [place] [address] Dr. Kelsie Dominguez HEMOGRAM AND PLATELon 2022 Hematocrit (Bld) [Volume fraction] 38.1 % Normal 36.0-48.0 [facility] Comment on above: Performed By: #### H H #### [facility] [address] [place] [address] Dr. Kelsie Dominguez Hemoglobin (Bld) [Mass/Vol] 12.5 g/dL Normal 12.0-16.0 [facility] Comment on above: Performed By: #### H H #### [facility] [address] [place] [address] Dr. Kelsie Dominguez MCH (RBC) [Entitic mass] 29.8 pg Normal 26.7-34.0 [facility] Comment on above: Performed By: #### H H #### [facility] [address] [place] [address] Dr. Kelsie Dominguez MCHC (RBC) [Mass/Vol] 32.8 g/dL Normal 29.9-35.2 [facility] Comment on above: Performed By: #### H H #### [facility] [address] [place] [address] Dr. Kelsie Dominguez MCV (RBC) [Entitic vol] 90.9 fL Normal 81.0-99.0 [facility] Comment on above: Performed By: #### H H #### [facility] [address] [place] [address] Dr. Kelsie Dominguez PLT 207 103/ul Normal 150-450 [facility] Comment on above: Performed By: #### H H #### [facility] [address] [address] [address] Kelsie Dominguez RBC 4.19 106/ul Critically low 4.20-5.40 [facility] Comment on above: Performed By: #### H H #### [facility] [address] [place] [address] Dr. Kelsie Dominguez WBC 5.1 103/ul Normal 4.0-11.0 [facility] Comment on above: Performed By: #### H H #### [facility] [address] [place] [address] Dr. Kelsie Dominguez MAGNESIUMon 08-07-2022 Magnesium [Mass/Vol] 1.9 mg/dL Normal 1.8-2.4 [facility] Comment on above: Performed By: #### H H #### [facility] [address] [place] [address] Dr. Kelsie Dominguez RENAL FUNCTION PANELon 08-07 Albumin [Mass/Vol] 3.0 g/dL Critically low 3.4-5.0 [facility] Comment on above: Performed By: #### H H #### [facility] [address] [place] [address] Dr. Kelsie Dominguez Calcium [Mass/Vol] 9.1 mg/dL Normal 8.5-10.1 [facility] Comment on above: Performed By: #### H H #### [facility] [address] [place] [address] Dr. Kelsie Dominguez Chloride [Moles/Vol] 103 mmol/L Normal 98-107 [facility] Comment on above: Performed By: #### H H #### [facility] [address] [place] [address] Dr. Kelsie Dominguez CO2 [Moles/Vol] 24.9 mmol/L Normal 21.0-32.0 [facility] Comment on above: Performed By: #### H H #### [facility] [address] [place] [address] Dr. Kelsie Dominguez Creatinine [Mass/Vol] 1.75 mg/dL Critically high 0.55-1.02 [facility] Comment on above: Performed By: #### H H #### [facility] [address] [address] [address] Kelsie Dominguez EGFR-AF BURMESE 36 mL/min/1.73m2 Critically low >=60 [facility] Comment on above: Performed By: #### H H #### [facility] [address] [address] [address] Kelsie Dominguez EGFR-NON AF BURMESE 30 mL/min/1.73m2 Critically low >=60 [facility] Comment on above: Performed By: #### H H #### [facility] [address] [address] [address] Kelsie Dominguez Glucose [Mass/Vol] 222 mg/dL Critically high 74-106 [facility] Comment on above: Performed By: #### H H #### [facility] [address] [address] [address] Kelsie Dominguez Phosphate [Mass/Vol] 3.6 mg/dL Normal 2.6-4.7 [facility] Comment on above: Performed By: #### H H #### [facility] [address] [address] [address] Kelsie Dominguez Potassium [Moles/Vol] 3.6 mmol/L Normal 3.5-5.1 [facility] Comment on above: Performed By: #### H H #### [facility] [address] [address] [address] Kelsie Dominguez Sodium [Moles/Vol] 141 mmol/L Normal 136-145 [facility] Comment on above: Performed By: #### H H #### [facility] [address] [address] [address] Kelsie Dominguez Urea nitrogen [Mass/Vol] 31.0 mg/dL Critically high 7.0-18.0 [facility] Comment on above: Performed By: #### H H #### [facility] [address] [address] [address] Kelsie Dominguez UA RANDOM W/MICROSCOPICon BACTERIA NONE SEEN Normal NONE SEEN [facility] Comment on above: Performed By: #### V ITAD #### [facility] [address] [place] [address] Dr. Kelsie Dominguez Bilirubin Ql (U) Negative Normal NEGATIVE [facility] Comment on above: Performed By: #### V ITAD #### [facility] [address] [place] [address] Dr. Kelsie Dominguez CAST NONE SEEN Normal NONE SEEN [facility] Comment on above: Performed By: #### V ITAD #### [facility] [address] [place] [address] Dr. Kelsie Dominguez Clarity (U) CLEAR Normal CLEAR [facility] Comment on above: Performed By: #### V ITAD #### [facility] [address] [place] [address] Dr. Kelsie Dominguez Color (U) LT. YELLOW Normal YELLOW [facility] Comment on above: Performed By: #### V ITAD #### [facility] [address] [place] [address] Dr. Kelsie Dominguez Crystals LM Nom (Urine sed) NONE SEEN Normal NONE SEEN [facility] Comment on above: Performed By: #### V ITAD #### [facility] [address] [place] [address] Dr. Kelsie Dominguez Epithelial cells LM Ql (Urine sed) RARE Normal NONE SEEN /RARE [facility] Comment on above: Performed By: #### V ITAD #### [facility] [address] [place] [address] Dr. Kelsie Dominguez Glucose Ql (U) 250 mg/dl Abnormal NEGATIVE [facility] Comment on above: Performed By: #### V ITAD #### [facility] [address] [place] [address] Dr. Kelsie Dominguez Hemoglobin Ql (U) SMALL Abnormal NEGATIVE [facility] Comment on above: Performed By: #### V ITAD #### [facility] [address] [place] [address] Dr. Kelsie Dominguez Ketones Ql (U) Negative Normal NEGATIVE [facility] Comment on above: Performed By: #### V ITAD #### [facility] [address] [place] [address] Dr. Kelsie Dominguez LEUKOCYTES TRACE Abnormal NEGATIVE [facility] Comment on above: Performed By: #### V ITAD #### [facility] [address] [place] [address] Dr. Kelsie Dominguez MUCOUS TRACE Abnormal NONE SEEN [facility] Comment on above: Performed By: #### V ITAD #### [facility] [address] [place] [address] Dr. Kelsie Dominguez Nitrite Ql (U) Negative Normal NEGATIVE [facility] Comment on above: Performed By: #### V ITAD #### [facility] [address] [place] [address] Dr. Kelsie Dominguez pH (U) 6.0 [pH] Normal 5-9 [facility] Comment on above: Performed By: #### V ITAD #### [facility] [address] [place] [address] Dr. Kelsie Dominguez RBC 5-10 Abnormal 0-2 [facility] Comment on above: Performed By: #### V ITAD #### [facility] [address] [place] [address] Dr. Kelsie Dominguez SPEC GRAVITY 1.010 Normal 1.005-<=1.02 5 [facility] Comment on above: Performed By: #### V ITAD #### [facility] [address] [place] [address] Dr. Kelsie Dominguez UA PROTEIN Negative Normal NEGATIVE/ TRACE [facility] Comment on above: Performed By: #### V ITAD #### [facility] [address] [place] [address] Dr. Kelsie Dominguez Urobilinogen Qn (U) 0.2 {Miguel'U}/dL Normal 0.2 - 1. 0 [facility] Comment on above: Performed By: #### V ITAD #### [facility] [address] [place] [address] Dr. Kelsie Dominguez WBC 10-20 Abnormal NONE SEEN [facility] Comment on above: Performed By: #### V ITAD #### [facility] [address] [place] [address] Dr. Kelsie Dominguez URIC ACID SERUMon 08-07-2022 Urate [Mass/Vol] 10.2 mg/dL Critically high 2.6-6.0 [facility] Comment on above: Performed By: #### H H #### [facility] [address] [place] [address] Dr. Kelsie Dominguez URINE T PROTEIN CREAT RATIOo n 08-07-2022 Protein (U) [Mass/Vol] 25.3 mg/dL Critically high <=12.0 [facility] Comment on above: Performed By: #### V ITAD #### [facility] [address] [place] [address] Dr. Kelsie Dominguez UR PROT CREAT RAT 0.21 Normal [facility] Comment on above: Performed By: #### V ITAD #### [facility] [address] [place] [address] Dr. Kelsie Dominguez URINE CREAT 121.04 mg/dL Normal 20.00-300.00 [facility] Comment on above: Performed By: #### V ITAD #### [facility] [address] [place] [address] Dr. Kelsie Dominguez VITAMIN D 25 OHon 08-07-2022 VIT D 25-OH 30.9 ng/mL Normal [facility] Comment on above: Performed By: #### V ITAD #### [facility] [address] [place] [address] Dr. Kelsie Dominguez VIT D RANGES SEE BELOW Normal [facility] Comment on above: Result Comment: <20 ng/mL Vit D deficient 20 - <30 ng/mL Vit D insufficient 30 - 100 ng/mL Vit D sufficient >100 ng/mL Potential Toxicity Performed By: #### V ITAD #### [facility] [address] [place] [address] Dr. Kelsie Dominguez MG MAMM SCREEN 3D AARON CADon 02-14-2022 MG MAMM SCREEN 3D AARON CAD Patient: RAQUEL VILA Exam Date: 02/14/2022 : 1965 Gender:F Ordering : DR. SHREYAS LONG M.D. Admission #: [id number] Family : Order #: [id number] CLICK HERE TO VIEW EXAM RADIOLOGY REPORT [...] unknown cancer at age 72. LOCATION: [facility] BREAST COMPOSITION: Scattered areas fibroglandular density. FINDINGS: [...] Dunn MD on 02/14/2022 at 11:22 Normal [facility] XR DEXA BONE DENSITYon 02-14 XR DEXA [...] by: AMARA DAVISON Date: 2022-02-14 21:14 Normal [facility] PTH INTACTon 02-02-2022 PTH, Intact 23 pg/mL Normal 15-65 [facility] Comment on above: Performed By: #### C LIBERTAD #### [facility] [address] [place] [address] Dr. Kelsie Dominguez FERRITINon 01-31-2022 Ferritin [Mass/Vol] 96.0 ng/mL Normal 8.0-252.0 [facility] Comment on above: Performed By: #### C LIBERTAD #### [facility] [address] [place] [address] Dr. Kelsie Dominguez HEMOGRAM AND PLATELon 2021 Hematocrit (Bld) [Volume fraction] 38.7 % Normal 36.0-48.0 [facility] Comment on above: Performed By: #### H H #### [facility] [address] [place] [address] Dr. Kelsie Dominguez Hemoglobin (Bld) [Mass/Vol] 12.4 g/dL Normal 12.0-16.0 [facility] Comment on above: Performed By: #### H H #### [facility] [address] [place] [address] Dr. Kelsie Dominguez MCH (RBC) [Entitic mass] 31.3 pg Normal 26.7-34.0 [facility] Comment on above: Performed By: #### H H #### [facility] [address] [place] [address] Dr. Kelsie Dominguez MCHC (RBC) [Mass/Vol] 32.0 g/dL Normal 29.9-35.2 [facility] Comment on above: Performed By: #### H H #### [facility] [address] [place] [address] Dr. Kelsie Dominguez MCV (RBC) [Entitic vol] 97.7 fL Normal 81.0-99.0 [facility] Comment on above: Performed By: #### H H #### [facility] [address] [place] [address] Dr. Kelsie Dominguez PLT 157 103/ul Normal 150-450 [facility] Comment on above: Performed By: #### H H #### [facility] [address] [place] [address] Dr. Kelsie Dominguez RBC 3.96 106/ul Critically low 4.20-5.40 [facility] Comment on above: Performed By: #### H H #### [facility] [address] [place] [address] Dr. Kelsie Dominguez WBC 6.8 103/ul Normal 4.0-11.0 [facility] Comment on above: Performed By: #### H H #### [facility] [address] [place] [address] Dr. Kelsie Dominguez IRON AND TIBCon 01-31-2022 % SATURATION 16.4 % Normal [facility] Comment on above: Performed By: #### C LIBERTAD #### [facility] [address] [place] [address] Dr. Kelsie Dominguez Iron [Mass/Vol] 44.0 ug/dL Critically low 50.0-170.0 [facility] Comment on above: Performed By: #### C LIBERTAD #### [facility] [address] [place] [address] Dr. Kelsie Dominguez TIBC DIRECT 268.0 ug/dL Normal 250.0-450.0 [facility] Comment on above: Performed By: #### C LIBERTAD #### [facility] [address] [place] [address] Dr. Kelsie Dominguez MAGNESIUMon 01-31-2022 Magnesium [Mass/Vol] 1.9 mg/dL Normal 1.8-2.4 [facility] Comment on above: Performed By: #### M Mary, RENAL, URIC #### [facility] [address] [place] [address] Dr. Kelsie Dominguez RENAL FUNCTION PANELon 01-31 Albumin [Mass/Vol] 3.3 g/dL Critically low 3.4-5.0 [facility] Comment on above: Performed By: #### M G, RENAL, URIC #### [facility] [address] [place] [address] Dr. Kelsie Dominguez Calcium [Mass/Vol] 9.3 mg/dL Normal 8.5-10.1 [facility] Comment on above: Performed By: #### M G, RENAL, URIC #### [facility] [address] [address] [address] Kelsie Dominguez Chloride [Moles/Vol] 110 mmol/L Critically high 98-107 [facility] Comment on above: Performed By: #### M G, RENAL, URIC #### [facility] [address] [place] [address] Dr. Kelsie Dominguez CO2 [Moles/Vol] 24.0 mmol/L Normal 21.0-32.0 [facility] Comment on above: Performed By: #### M G, RENAL, URIC #### [facility] [address] [place] [address] Dr. Kelsie Dominguez Creatinine [Mass/Vol] 1.37 mg/dL Critically high 0.55-1.02 [facility] Comment on above: Performed By: #### M G, RENAL, URIC #### [facility] [address] [place] [address] Dr. Kelsie Dominguez EGFR-AF BURMESE 48 mL/min/1.73m2 Critically low >=60 [facility] Comment on above: Performed By: #### M G, RENAL, URIC #### [facility] [address] [place] [address] Dr. Kelsie Dominguez EGFR-NON AF BURMESE 40 mL/min/1.73m2 Critically low >=60 [facility] Comment on above: Performed By: #### M G, RENAL, URIC #### [facility] [address] [place] [address] Dr. Kelsie Dominguez Glucose [Mass/Vol] 280 mg/dL Critically high 74-106 [facility] Comment on above: Performed By: #### M G, RENAL, URIC #### [facility] [address] [place] [address] Dr. Kelsie Dominguez Phosphate [Mass/Vol] 3.7 mg/dL Normal 2.6-4.7 [facility] Comment on above: Performed By: #### M G, RENAL, URIC #### [facility] [address] [place] [address] Dr. Kelsie Dominguez Potassium [Moles/Vol] 4.4 mmol/L Normal 3.5-5.1 [facility] Comment on above: Performed By: #### M G, RENAL, URIC #### [facility] [address] [place] [address] Dr. Kelsei Dominguez Sodium [Moles/Vol] 146 mmol/L Critically high 136-[address] [facility] Comment on above: Performed By: #### M Mary, RENAL, URIC #### [facility] [address] [place] [address] Dr. Kelsie Dominguez Urea nitrogen [Mass/Vol] 36.0 mg/dL Critically high 7.0-18.0 [facility] Comment on above: Performed By: #### M Mary, RENAL, URIC #### [facility] [address] [place] [address] Dr. Kelsie Dominguez UA RANDOM W/MICROSCOPICon BACTERIA SMALL Abnormal NONE SEEN [facility] Comment on above: Performed By: #### V ITAD #### [facility] [address] [place] [address] Dr. Kelsie Dominguez Bilirubin Ql (U) Negative Normal NEGATIVE [facility] Comment on above: Performed By: #### V ITAD #### [facility] [address] [place] [address] Dr. Kelsie Dominguez CAST NONE SEEN Normal NONE SEEN [facility] Comment on above: Performed By: #### V ITAD #### [facility] [address] [place] [address] Dr. Kelsie Dominguez Clarity (U) CLEAR Normal CLEAR [facility] Comment on above: Performed By: #### V ITAD #### [facility] [address] [place] [address] Dr. Kelsie Dominguez Color (U) LT. YELLOW Normal YELLOW [facility] Comment on above: Performed By: #### V ITAD #### [facility] [address] [place] [address] Dr. Kelsie Dominguez Crystals LM Nom (Urine sed) NONE SEEN Normal NONE SEEN [facility] Comment on above: Performed By: #### V ITAD #### [facility] [address] [place] [address] Dr. Kelsie Dominguez Epithelial cells LM Ql (Urine sed) FEW Abnormal NONE SEEN /RARE [facility] Comment on above: Performed By: #### V ITAD #### [facility] [address] [place] [address] Dr. Kelsie Dominguez Glucose Ql (U) 500 mg/dl Abnormal NEGATIVE [facility] Comment on above: Performed By: #### V ITAD #### [facility] [address] [place] [address] Dr. Kelsie Dominguez Hemoglobin Ql (U) LARGE Abnormal NEGATIVE [facility] Comment on above: Performed By: #### V ITAD #### [facility] [address] [place] [address] Dr. Kelsie Dominguez Ketones Ql (U) Negative Normal NEGATIVE [facility] Comment on above: Performed By: #### V ITAD #### [facility] [address] [place] [address] Dr. Kelsie Dominguez LEUKOCYTES SMALL Abnormal NEGATIVE [facility] Comment on above: Performed By: #### V ITAD #### [facility] [address] [place] [address] Dr. Kelsie Dominguez MUCOUS NONE SEEN Normal NONE SEEN [facility] Comment on above: Performed By: #### V ITAD #### [facility] [address] [place] [address] Dr. Kelsie Dominguez Nitrite Ql (U) Negative Normal NEGATIVE [facility] Comment on above: Performed By: #### V ITAD #### [facility] [address] [place] [address] Dr. Kelsie Dominguez pH (U) 6.0 [pH] Normal 5-9 [facility] Comment on above: Performed By: #### V ITAD #### [facility] [address] [place] [address] Dr. Kelsie Dominguez RBC 20-50 Abnormal 0-2 [facility] Comment on above: Performed By: #### V ITAD #### [facility] [address] [place] [address] Dr. Kelsie Dominguez SPEC GRAVITY 1.020 Normal 1.005-<=1.02 5 [facility] Comment on above: Performed By: #### V ITAD #### [facility] [address] [place] [address] Dr. Kelsie Dominguez UA PROTEIN 30 mg/dl Abnormal NEGATIVE/ TRACE [facility] Comment on above: Performed By: #### V ITAD #### [facility] [address] [place] [address] Dr. Kelsie Dominguez Urobilinogen Qn (U) 0.2 {Miguel'U}/dL Normal 0.2 - 1. 0 [facility] Comment on above: Performed By: #### V ITAD #### [facility] [address] [place] [address] Dr. Kelsie Dominguez WBC 20-50 Abnormal NONE SEEN [facility] Comment on above: Performed By: #### V ITAD #### [facility] [address] [place] [address] Dr. Kelsie Dominguez URIC ACID SERUMon 01-31-2022 Urate [Mass/Vol] 9.4 mg/dL Critically high 2.6-6.0 [facility] Comment on above: Performed By: #### M G, RENAL, URIC #### [facility] [address] [place] [address] Dr. Kelsie Dominguez URINE T PROTEIN CREAT RATIOo n 01-31-2022 Protein (U) [Mass/Vol] 56.9 mg/dL Critically high <=12.0 [facility] Comment on above: Performed By: #### H H #### [facility] [address] [place] [address] Dr. Kelsie Dominguez UR PROT CREAT RAT 0.42 Normal [facility] Comment on above: Performed By: #### H H #### [facility] [address] [place] [address] Dr. Kelsie Dominguez URINE CREAT 136.85 mg/dL Normal 20.00-300.00 [facility] Comment on above: Performed By: #### H H #### [facility] [address] [place] [address] Dr. Kelsie Dominguez VITAMIN D 25 OHon 01-31-2022 VIT D 25-OH 32.0 ng/mL Normal [facility] Comment on above: Performed By: #### C LIBERTAD #### [facility] [address] [address] [address] Kelsie Dominguez VIT D RANGES SEE BELOW Normal [facility] Comment on above: Result Comment: <20 ng/mL Vit D deficient 20 - <30 ng/mL Vit D insufficient 30 - 100 ng/mL Vit D sufficient >100 ng/mL Potential Toxicity Performed By: #### C LIBERTAD #### [facility] [address] [address] [address] Kelsie Dominguez [facility] [place] [facility] January 11, 2022 RAQUEL VILA [address] [place] [address] RAQUEL VILA 1965 To Whom It May Concern, Please excuse above patient from work 01/10/2022 due to doctor office appointment. . Sincerely, Dr. Nalini Landers MD General Surgery [facility] Ambulatory Visit Summaryon 0 01-10-2022 Ambulatory Visit Summary RAQUEL VILA :1965 Visit Date:01/10/2022 Ambulatory Visit Instructions Your Care Team Attending Physician - Nalini LANDERS MD Primary Care Physician - Lisbeth Grace MD [...] treatment for. Anticoagulated Left axillary abscess Normal [facility] General Surgery Office/Clini c Noteon [...] inactivated - Not Given Patient Refuses Normal [facility] Comment on above: Result Comment: Elec tronically Signed By: SHAHEED ARAIZA, Nalini Feng\Date and Time Signed: 01/10/22 17:59 EDT Pathology Noteon 01-04-2022 Pathology Note [id number] 1.00CD:127 Normal [facility] Operative Reporton Operative Report [id number] .00CD:127 Normal [facility] Consultation Noteon 12-27-19 Consultation Note [id number]#1 .00CD:127 Normal [facility] SARS-CoV-2 (COVID-19) RNA NA A+probe Ql (Resp)on 12-06-2021 SARS-CoV-2 (COVID-19) RNA SUZANNA+probe Ql (Unsp spec) Positive [employer] Other Physician Referralon 022 Physician Referral [id number] .00CD:127 Normal [facility] Lab Reportson 12-01-2021 Lab Reports [id number] .00CD:127 Normal [facility] BASIC METABOLIC PANELon Calcium [Mass/Vol] 8.7 mg/dL Normal 8.6-10.3 [facility] Comment on above: Order Comment: No: D o not add to previous draw Performed By: #### 8 [id number] #### [facility] [address] [place] [address], [facility] Chloride [Moles/Vol] 104 mmol/L Normal 98-107 [facility] Comment on above: Order Comment: No: D o not add to previous draw Performed By: #### 8 [id number] #### [facility] [address] [facility] [place] [address], [place] CO2 [Moles/Vol] 27 mmol/L Normal 21-31 [facility] Comment on above: Order Comment: No: D o not add to previous draw Performed By: #### 8 [id number] #### [facility] [address] [place] [address], [place] Creatinine [Mass/Vol] 0.85 mg/dL Normal 0.60-1.20 [facility] Comment on above: Order Comment: No: D o not add to previous draw Performed By: #### 8 [id number] #### [facility] [address] [place] [address], [facility] GFR/1.73 sq M.predicted among non-blacks MDRD (S/P/Bld) [Vol rate/Area] mL/min/{1.73_m2} Normal >60 The [facility] Comment on above: Order Comment: No: D o not add to previous draw Result Comment: The [facility]'s estimated glomerular filtration rate (eGFR) will no [...] individuals. Performed By: #### 8 [id number] #### [facility] [address] [place] [address], [place] Glucose [Mass/Vol] 150 mg/dL High 70-100 The [facility] Comment on above: Order Comment: No: D o not add to previous draw Performed By: #### 8 [id number] #### [facility] [address] [place] [address], [place] Potassium [Moles/Vol] 4.3 mmol/L Normal 3.5-5.1 [facility] Comment on above: Order Comment: No: D o not add to previous draw Performed By: #### 8 [id number] #### [facility] [address] [place] [address], [place] Sodium [Moles/Vol] 139 mmol/L Normal 136-145 [facility] Comment on above: Order Comment: No: D o not add to previous draw Performed By: #### 8 [id number] #### [facility] [address] [place] [address], [place] Urea nitrogen [Mass/Vol] 11 mg/dL Normal 7-25 [facility] Comment on above: Order Comment: No: D o not add to previous draw Performed By: #### 8 [id number] #### [facility] [address] [place] [address], [place] POC GLUCOSE LABon 11-24-2021 Glucose [Mass/Vol] 176 mg/dL High 70-100 The [facility] Comment on above: Performed By: #### [id number] #### [facility] [address] [place] [address], [place] Glucose [Mass/Vol] 141 mg/dL High 70-100 [facility] Comment on above: Performed By: #### 8 [id number] #### [facility] [address] [place] [address], [place] Glucose [Mass/Vol] 147 mg/dL High 70-100 [facility] Comment on above: Performed By: #### 8 [id number] #### [facility] [address] [place] [address], [place] BASIC METABOLIC PANELon Calcium [Mass/Vol] 8.2 mg/dL Low 8.6-10.3 The [facility] Comment on above: Order Comment: RESUL TS CHECKED AND CALLED. ACCURATELY READ BACK BY Jina TAVAREZ ED RN Performed By: #### 8 [id number] #### [facility] [address] [place] [address], [place] Chloride [Moles/Vol] 106 mmol/L Normal 98-107 [facility] Comment on above: Order Comment: RESUL TS CHECKED AND CALLED. ACCURATELY READ BACK BY Jina TAVAREZ ED RN Performed By: #### 8 [id number] #### [facility] [address] [place] [address], [place] CO2 [Moles/Vol] 29 mmol/L Normal 21-31 The [facility] Comment on above: Order Comment: RESUL TS CHECKED AND CALLED. ACCURATELY READ BACK BY Jina TAVAREZ ED, RN Performed By: #### 8 [id number] #### [facility] [address] [place] [address], [facility] Creatinine [Mass/Vol] 1.04 mg/dL Normal 0.60-1.20 The [facility] Comment on above: Order Comment: RESUL TS CHECKED AND CALLED. ACCURATELY READ BACK BY Jina TAVAREZ ED RN Performed By: #### 8 [id number] #### [facility] [address] [place] [address], [facility] GFR/1.73 sq M.predicted among non-blacks MDRD (S/P/Bld) [Vol rate/Area] mL/min/{1.73_m2} Normal >60 The [facility] Comment on above: Order Comment: RESUL TS CHECKED AND CALLED. ACCURATELY READ BACK BY Jina TAVAREZ ED, RN Result Comment: The [facility]'s estimated glomerular filtration rate (eGFR) will no [...] individuals. Performed By: #### 8 [id number] #### [facility] [address] [place] [address], [facility] Glucose [Mass/Vol] 124 mg/dL High 70-100 [facility] Comment on above: Order Comment: RESUL TS CHECKED AND CALLED. ACCURATELY READ BACK BY Jina TAVAREZ ED, RN Performed By: #### 8 [id number] #### [facility] [address] [place] [address], [place] Potassium [Moles/Vol] 3.3 mmol/L Low 3.5-5.1 The [facility] Comment on above: Order Comment: RESUL TS CHECKED AND CALLED. ACCURATELY READ BACK BY Jina TAVAREZ ED RN Performed By: #### 8 4511 #### [facility] [address] [place] [address], [facility] Sodium [Moles/Vol] 145 mmol/L Normal 136-145 The [facility] Comment on above: Order Comment: RESUL TS CHECKED AND CALLED. ACCURATELY READ BACK BY Jina TAVAREZ ED RN Performed By: #### 8 4511 #### [facility] [address] Urea nitrogen [Mass/Vol] 15 mg/dL Normal 7-25 The [facility] Comment on above: Order Comment: RESUL TS CHECKED AND CALLED. ACCURATELY READ BACK BY Jina TAVAREZ ED RN Performed By: #### 8 4511 #### [facility] [address] [place] [address], [facility] CBC W/DIFFon 11-23-2021 ABS IMM GRANS 0.0 10*3/uL Normal 0.0-0.2 The [facility] Comment on above: Order Comment: No: D o not add to previous draw Performed By: #### 8 4511 #### [facility] [address] [place] [address], [facility] ABS NEUTROPHILS 4.5 10*3/uL Normal 1.6-7.6 The [facility] Comment on above: Order Comment: No: D o not add to previous draw Performed By: #### 8 4511 #### [facility] [address] [place] [address], [facility] Basophils (Bld) [#/Vol] 0.0 10*3/uL Normal 0.0-0.2 The [facility] Comment on above: Order Comment: No: D o not add to previous draw Performed By: #### 8 4511 #### [facility] [address] [place] [id number], [facility] Basophils/100 WBC (Bld) 0.6 % Normal 0.0-1.0 The [facility] Comment on above: Order Comment: No: D o not add to previous draw Performed By: #### 8 4511 #### [facility] [address] [place] [address], [facility] Eosinophils (Bld) [#/Vol] 0.1 10*3/uL Normal 0.0-0.5 The [facility] Comment on above: Order Comment: No: D o not add to previous draw Performed By: #### 8 4511 #### [facility] [address] [place] [address], [facility] Eosinophils/100 WBC (Bld) 1.7 % Normal 0.0-6.0 The [facility] Comment on above: Order Comment: No: D o not add to previous draw Performed By: #### 8 4511 #### [facility] [address] [place] [place] [address], [facility] Erythrocyte distribution width (RBC) [Ratio] 14.4 % Normal 11.5-15.0 The [facility] Comment on above: Order Comment: No: D o not add to previous draw Performed By: #### 8 4511 #### [facility] [address] [place] [address], [facility] Hematocrit (Bld) [Volume fraction] 32.1 % Low 36.0-45.0 The [facility] Comment on above: Order Comment: No: D o not add to previous draw Performed By: #### 8 4511 #### [facility] [address] [place] [address], [facility] Hemoglobin (Bld) [Mass/Vol] 10.5 g/dL Low 12.0-15.0 The [facility] Comment on above: Order Comment: No: D o not add to previous draw Performed By: #### 8 4511 #### [facility] [address] [place] [address], [facility] IMMATURE GRANS 0.5 % Normal 0.0-1.0 The [facility] Comment on above: Order Comment: No: D o not add to previous draw Performed By: #### 8 4511 #### [facility] [address] [place] [address], [facility] Lymphocytes (Bld) [#/Vol] 1.1 10*3/uL Low 1.2-4.0 The [facility] Comment on above: Order Comment: No: D o not add to previous draw Performed By: #### 8 4511 #### [facility] [address] [place] [id number], [facility] Lymphocytes/100 WBC (Bld) 17.4 % Low 20.0-45.0 The [facility] Comment on above: Order Comment: No: D o not add to previous draw Performed By: #### 8 4511 #### [facility] [address] [place] [id number], [facility] MCH (RBC) [Entitic mass] 31.8 pg Normal 27.0-33.0 The [facility] Comment on above: Order Comment: No: D o not add to previous draw Performed By: #### 8 4511 #### [facility] [address] [place] [id number], [facility] MCHC (RBC) [Mass/Vol] 32.7 g/dL Normal 32.0-35.0 The [facility] Comment on above: Order Comment: No: D o not add to previous draw Performed By: #### 8 4511 #### [facility] [address] [place] [address], [facility] MCV (RBC) [Entitic vol] 97.3 fL Normal 82.0-98.0 The [facility] Comment on above: Order Comment: No: D o not add to previous draw Performed By: #### 8 4511 #### [facility] [address] [place] [id number], [facility] Monocytes (Bld) [#/Vol] 0.7 10*3/uL Normal 0.1-1.0 The [facility] Comment on above: Order Comment: No: D o not add to previous draw Performed By: #### 8 4511 #### [facility] [address] [place] [address], [place] MONOS 10.5 % Normal 5.0-12.0 The [facility] Comment on above: Order Comment: No: D o not add to previous draw Performed By: #### 8 4511 #### [facility] [address] [place] [address], [place] Neutrophils/100 WBC (Bld) 69.3 % Normal 40.0-72.0 The [facility] Comment on above: Order Comment: No: D o not add to previous draw Performed By: #### 8 4511 #### [facility] [address] [place] [address], [place] Nucleated RBC/100 WBC (Bld) [Ratio] 0 % Normal 0-0 The [facility] Comment on above: Order Comment: No: D o not add to previous draw Performed By: #### 8 4511 #### [facility] [address] [place] [address], [place] PLAT CNT 146 10*3/uL Low 150-400 The [facility] Comment on above: Order Comment: No: D o not add to previous draw Performed By: #### 8 4511 #### [facility] [address] [place] [address], [place] RBC (Bld) [#/Vol] 3.30 10*6/uL Low 3.80-5.00 The [facility] Comment on above: Order Comment: No: D o not add to previous draw Performed By: #### 8 4511 #### [facility] [address] [place] [address], [place] WBC (Bld) [#/Vol] 6.48 10*3/uL Normal 4.00-10.60 The [facility] Comment on above: Order Comment: No: D o not add to previous draw Performed By: #### 8 4511 #### [facility] [address] [facility] [address], [facility] MAGNESIUM BLOODon 11-23-2021 Magnesium [Mass/Vol] 1.8 mg/dL Low 1.9-2.7 The [facility] Comment on above: Order Comment: RESUL TS CHECKED AND CALLED. ACCURATELY READ BACK BY Jina TAVAREZ ED, RN Performed By: #### 8 4511 #### [facility] [address] [facility] [place] [address], [facility] POC GLUCOSE LABon 11-23-2021 Glucose [Mass/Vol] 175 mg/dL High 70-100 The [facility] Comment on above: Performed By: #### 8 5499 ####[facility] [facility] [place] [address], [place] Glucose [Mass/Vol] 148 mg/dL High 70-100 The [facility] Comment on above: Performed By: #### 8 4511 #### [facility] [address] [facility] [place] [address], [place] Glucose [Mass/Vol] 115 mg/dL High 70-100 The [facility] Comment on above: Performed By: #### 8 5499 #### [facility] [address] [facility] [place] [address], [place] Glucose [Mass/Vol] 123 mg/dL High 70-100 The [facility] Comment on above: Performed By: #### 8 5499 #### [facility] [address] [facility] [place] [address], [place] PORTABLE CHEST 1 VIEWon 08-0 PORTABLE CHEST 1 VIEW [facility] Department of Radiology [address] [place] [id number] Patient Name: RAQUEL VILA : 1965 Sex: F Age: Race: White Pt. Location: [place] [address] Patient Status: I Ordered Date: 11/23/2021 12:10:00 [...] process Electronically signed: Maggie Lynne. Transcribed by: [email or web address], User Resident: Electronically Signed by: MAGGIE LYNNE @ 11/23/2021 01:05 PM Normal The [facility] Comment on above: Order Comment: Atele ctasis ARTERIAL BLOOD GAS WITH ICAo n 11-22-2021 BASE EXCESS 2 mmol/L Normal -2-3 The [facility] Comment on above: Performed By: #### 8 4511 #### [facility] [address] [place] [address], [facility] DELIVERY SYSTEMS VENTILATOR Normal The [facility] Comment on above: Performed By: #### 8 4511 #### [facility] [address] [place] [address], [facility] FIO2 40 % Normal The [facility] Comment on above: Performed By: #### 8 4511 #### [facility] [address] [place] [address], [facility] HCO3 (Bld) [Moles/Vol] 27 mmol/L Normal 21-28 The [facility] Comment on above: Performed By: #### 8 4511 #### [facility] [address] [place] [address], [facility] IONIZED CALCIUM 1.16 mmol/L Normal 1.13-1.32 The [facility] Comment on above: Performed By: #### 8 4511 #### [facility] [address] [place] [address], [facility] MIN VOLUME 8.1 Normal The [facility] Comment on above: Performed By: #### 8 4511 #### [facility] [address] [place] [address], [facility] MODALITY AC-ASSIST CONTROL Normal The [facility] Comment on above: Performed By: #### 8 4511 #### [facility] [address] [place] [address], [facility] Oxygen (Bld) [Partial pressure] 85 mm[Hg] Normal 83-108 The [facility] Comment on above: Performed By: #### 8 4511 #### [facility] [address] [place] [address], [place] Oxygen saturation in Blood 97.0 % Normal 94.0-97.0 The [facility] Comment on above: Performed By: #### 8 4511 #### [facility] [address] [place] [address], [facility] PCO2 40 mmHg Normal 35-45 The [facility] Comment on above: Performed By: #### 8 4511 #### [facility] [address] [place] [address], [place] PEEP 8.0 CMH20 Normal [facility] Comment on above: Performed By: #### 8 4511 #### [facility] [address] [place] [address], [place] PF RATIO 215 mmHg Normal [facility] Comment on above: Performed By: #### 8 4511 #### [facility] [address] [place] [address], [place] pH (Bld) 7.43 [pH] Normal 7.35-7.45 [facility] Comment on above: Performed By: #### 8 4511 #### [facility] [address] [place] [address], [place] Respiratory rate 18 /min Normal [facility] Comment on above: Performed By: #### 8 4511 #### [facility] [address] [place] [address], [place] TIDAL VOLUME (VT) CC 450 Normal [facility] Comment on above: Performed By: #### 8 4511 #### [facility] [address] [place] [address], [place] CBC COMPLETE BLOOD COUNTon 0 - Erythrocyte distribution width (RBC) [Ratio] 14.6 % Normal 11.5-15.0 [facility] Comment on above: Order Comment: No: D o not add to previous draw Performed By: #### 8 4511 #### [facility] [address] [place] [address], [place] Hematocrit (Bld) [Volume fraction] 32.0 % Low 36.0-45.0 [facility] Comment on above: Order Comment: No: D o not add to previous draw Performed By: #### 8 4511 #### [facility] [address] [place] [address], [facility] Hemoglobin (Bld) [Mass/Vol] 10.6 g/dL Low 12.0-15.0 The [facility] Comment on above: Order Comment: No: D o not add to previous draw Performed By: #### 8 4511 #### [facility] [address] [place] [address], [facility] MCH (RBC) [Entitic mass] 31.6 pg Normal 27.0-33.0 The [facility] Comment on above: Order Comment: No: D o not add to previous draw Performed By: #### 8 4511 #### [facility] [address] [place] [address], [facility] MCHC (RBC) [Mass/Vol] 33.1 g/dL Normal 32.0-35.0 The [facility] Comment on above: Order Comment: No: D o not add to previous draw Performed By: #### 8 4511 #### [facility] [address] [place] [place] [address], [facility] MCV (RBC) [Entitic vol] 95.5 fL Normal 82.0-98.0 The [facility] Comment on above: Order Comment: No: D o not add to previous draw Performed By: #### 8 4511 #### [facility] [address] [place] [place] [address], [facility] Nucleated RBC/100 WBC (Bld) [Ratio] 0 % Normal 0-0 The [facility] Comment on above: Order Comment: No: D o not add to previous draw Performed By: #### 8 4511 #### [facility] [address] [facility]. [place] [id number], [facility] PLAT CNT 147 10*3/uL Low 150-400 The [facility] Comment on above: Order Comment: No: D o not add to previous draw Performed By: #### 8 4511 #### [facility] [address] [place] [place] [address], [facility] RBC (Bld) [#/Vol] 3.35 10*6/uL Low 3.80-5.00 The [facility] Comment on above: Order Comment: No: D o not add to previous draw Performed By: #### 8 4511 #### [facility] [address] [place] [address], [place] WBC (Bld) [#/Vol] 7.77 10*3/uL Normal 4.00-10.60 The [facility] Comment on above: Order Comment: No: D o not add to previous draw Performed By: #### 8 4511 #### [facility] [address] [place] [address], [facility] COMP METABOLIC PANELon 11-22 Albumin [Mass/Vol] 3.4 g/dL Low 3.5-5.7 The [facility] Comment on above: Order Comment: No: D o not add to previous draw Performed By: #### 8 4511 #### [facility] [address] [place] [address], [place] ALKALINE PHOSPH 134 IU/L High 34-104 The [facility] Comment on above: Order Comment: No: D o not add to previous draw Performed By: #### 8 4511 #### [facility] [address] [place] [address], [place] ALT [Catalytic activity/Vol] 400 U/L Critically high 7-52 The [facility] Comment on above: Order Comment: No: D o not add to previous draw Performed By: #### 8 4511 #### [facility] [address] [place] [address], [place] AST [Catalytic activity/Vol] 306 U/L High 13-39 The [facility] Comment on above: Order Comment: No: D o not add to previous draw Performed By: #### 8 4511 #### [facility] [address] [place] [address], [place] Bilirubin [Mass/Vol] 0.4 mg/dL Normal 0.3-1.0 The [facility] Comment on above: Order Comment: No: D o not add to previous draw Performed By: #### 8 4511 #### [facility] [address] [place] [address], [place] Calcium [Mass/Vol] 8.4 mg/dL Low 8.6-10.3 The [facility] Comment on above: Order Comment: No: D o not add to previous draw Performed By: #### 8 4511 #### [facility] [address] [place] [address], [place] Chloride [Moles/Vol] 109 mmol/L High 98-107 The [facility] Comment on above: Order Comment: No: D o not add to previous draw Performed By: #### 8 4511 #### [facility] [address] [place] [address], [place] CO2 [Moles/Vol] 25 mmol/L Normal 21-31 The [facility] Comment on above: Order Comment: No: D o not add to previous draw Performed By: #### 8 4511 #### [facility] [address] [place] [address], [place] Creatinine [Mass/Vol] 1.34 mg/dL High 0.60-1.20 The [facility] Comment on above: Order Comment: No: D o not add to previous draw Performed By: #### 8 4511 #### [facility] [address] [place] [address], [place] EGFR 47 ml/min/1.73sq m Abnormal >60 The [facility] Comment on above: Order Comment: No: D o not add to previous draw Result Comment: The [facility]'s estimated glomerular filtration rate (eGFR) will no [...] individuals. Performed By: #### 8 4511 #### [facility] [address] [place] [address], [place] Glucose [Mass/Vol] 100 mg/dL Normal 70-100 The [facility] Comment on above: Order Comment: No: D o not add to previous draw Performed By: #### 8 4511 #### [facility] [address] [place] [address], [place] Potassium [Moles/Vol] 3.2 mmol/L Low 3.5-5.1 The [facility] Comment on above: Order Comment: No: D o not add to previous draw Performed By: #### 8 4511 #### [facility] [address] [place] [address], [place] Protein [Mass/Vol] 5.5 g/dL Low 6.0-8.3 The [facility] Comment on above: Order Comment: No: D o not add to previous draw Performed By: #### 8 4511 #### [facility] [address] [place] [address], [place] Sodium [Moles/Vol] 144 mmol/L Normal 136-145 The [facility] Comment on above: Order Comment: No: D o not add to previous draw Performed By: #### 8 4511 #### [facility] [address] [place] [address], [place] Urea nitrogen [Mass/Vol] 21 mg/dL Normal 7-25 The [facility] Comment on above: Order Comment: No: D o not add to previous draw Performed By: #### 8 4511 #### [facility] [address] [place] [address], [place] MAGNESIUM BLOODon 11-22-2021 Magnesium [Mass/Vol] 1.9 mg/dL Normal 1.9-2.7 The [facility] Comment on above: Order Comment: No: D o not add to previous draw Performed By: #### 8 4511 #### [facility] [address] [place] [address], [facility] PHOSPHORUS BLOODon 2 Phosphate [Mass/Vol] 3.3 mg/dL Normal 2.5-5.0 The [facility] Comment on above: Order Comment: No: D o not add to previous draw Performed By: #### 8 4511 #### [facility] [address] [place] [address], [facility] POC GLUCOSE LABon 11-22-2021 Glucose [Mass/Vol] 140 mg/dL High 70-100 [facility] on above: Performed By: #### 8 5499 #### [facility] [address] [place] [address], [place] Glucose [Mass/Vol] 160 mg/dL High 70-100 [facility] Comment on above: Performed By: #### 8 5499 #### [facility] [address] [place] [address], [place] Glucose [Mass/Vol] 86 mg/dL Normal 70-100 The [facility] Comment on above: Performed By: #### 8 4511 #### [facility] [address] [place] [address], [place] *BLOOD CULTUREon 11-21-2021 *BLOOD CULTURE Clinical Report: (D) Specimen: BLOOD CULTURE Collected: 11/21/2021 00:17 Status: Final Last Updated: 11/26/2021 06:23 CULT RES (Final) No Growth Day 5 Normal The [facility] Comment on above: Performed By: #### 8 [id number] #### [facility] [address] [place] [address], [facility] Performed By: #### 8 4511 #### [facility] [address] [place] [address], [facility] ARTERIAL BLOOD GAS WITH ICAo n 11-21-2021 BASE EXCESS -1 mmol/L Normal -2-3 The [facility] Comment on above: Performed By: #### 8 5499 #### [facility] [address] [place] [address], [facility] DELIVERY SYSTEMS VENTILATOR Normal The [facility] Comment on above: Performed By: #### 8 5499 #### [facility] [address] [place] [address], [facility] FIO2 70 % Normal [facility] Comment on above: Performed By: #### 8 5499 #### [facility] [address] [place] [address], [facility] HCO3 (Bld) [Moles/Vol] 24 mmol/L Normal 21-28 The [facility] Comment on above: Performed By: #### 8 5499 #### [facility] [address] [place] [address], [facility] IONIZED CALCIUM 1.17 mmol/L Normal 1.13-1.32 The [facility] Comment on above: Performed By: #### 8 5499 #### [facility] [address] [place] [address], [place] MIN VOLUME 11.0 Normal [facility] Comment on above: Performed By: #### 8 5499 #### [facility] [address] [place] [address], [place] MODALITY AC VC Normal [facility] Comment on above: Performed By: #### 8 5499 #### [facility] [address] [place] [address], [place] Oxygen (Bld) [Partial pressure] 191 mm[Hg] Critically high 83-108 The [facility] Comment on above: Performed By: #### 8 [id number] #### [facility] [address] [place] [address], [place] Oxygen saturation in Blood 97.8 % High 94.0-97.0 The [facility] Comment on above: Performed By: #### 8 5499 #### [facility] [address] [place] [address], [place] PCO2 39 mmHg Normal 35-45 The [facility] Comment on above: Performed By: #### 8 5499 #### [facility] [address] [place] [address], [place] PEEP 10.0 CMH20 Normal [facility] Comment on above: Performed By: #### 8 5499 #### [facility] [address] [place] [address], [place] pH (Bld) 7.40 [pH] Normal 7.35-7.45 [facility] Comment on above: Performed By: #### 8 5499 #### [facility] [address] [place] [address], [place] Respiratory rate 24 /min Normal [facility] Comment on above: Performed By: #### 8 5499 #### [facility] [address] [place] [address], [place] TIDAL VOLUME (VT) CC 450 Normal [facility] Comment on above: Performed By: #### 8 5499 #### [facility] [address] [place] [address], [place] BASIC METABOLIC PANELon 08-0 2-2021 Calcium [Mass/Vol] 9.3 mg/dL Normal 8.6-10.3 [facility] Comment on above: Order Comment: RESUL TS CHECKED AND CALLED. ACCURATELY READ BACK BY Jina TAVAREZ ED, RN Performed By: #### 8 4511 #### [facility] [address] [place] [address], [place] Chloride [Moles/Vol] 106 mmol/L Normal 98-107 The [facility] Comment on above: Order Comment: RESUL TS CHECKED AND CALLED. ACCURATELY READ BACK BY Jina TAVAREZ ED RN Performed By: #### 8 4511 #### [facility] 3000 [facility]. [address] CO2 [Moles/Vol] 25 mmol/L Normal 21-31 The [facility] Comment on above: Order Comment: RESUL TS CHECKED AND CALLED. ACCURATELY READ BACK BY Jina TAVAREZ ED RN Performed By: #### 8 4511 #### [facility] [address] Creatinine [Mass/Vol] 1.68 mg/dL High 0.60-1.20 The [facility] Comment on above: Order Comment: RESUL TS CHECKED AND CALLED. ACCURATELY READ BACK BY Jina TAVAREZ ED RN Performed By: #### 8 4511 #### [facility] [address] EGFR 36 ml/min/1.73sq m Abnormal >60 The [facility] Comment on above: Order Comment: RESUL TS CHECKED AND CALLED. ACCURATELY READ BACK BY Jina TAVAREZ ED, RN Result Comment: The [facility]'s estimated glomerular filtration rate (eGFR) will no [...] individuals. Performed By: #### 8 4511 #### [facility] [address] [place] [address], [facility] Glucose [Mass/Vol] 201 mg/dL High 70-100 The [facility] Comment on above: Order Comment: RESUL TS CHECKED AND CALLED. ACCURATELY READ BACK BY R. DAYSI ED RN Performed By: #### 8 4511 #### [facility] [address] [place] [address], [facility] Potassium [Moles/Vol] 3.7 mmol/L Normal 3.5-5.1 The [facility] Comment on above: Order Comment: RESUL TS CHECKED AND CALLED. ACCURATELY READ BACK BY Jina TVAAREZ ED RN Performed By: #### 8 4511 #### [facility] [address] Sodium [Moles/Vol] 141 mmol/L Normal 136-145 The [facility] Comment on above: Order Comment: RESUL TS CHECKED AND CALLED. ACCURATELY READ BACK BY Jina TAVAREZ ED RN Performed By: #### 8 4511 #### [facility] [address] Urea nitrogen [Mass/Vol] 28 mg/dL High 7-25 The [facility] Comment on above: Order Comment: RESUL TS CHECKED AND CALLED. ACCURATELY READ BACK BY Jina TAVAREZ ED, RN Performed By: #### 8 4511 #### [facility] [address] BETA HYDROXYBUTYRATEon 11-21 BETA HYDROXYBUTYRATE 0.21 mmol/L Normal 0.02-0.27 [facility] Comment on above: Performed By: #### 8 4511 #### [facility] [address] [place] [address], [facility] CBC W/DIFFon 11-21-2021 ABS IMM GRANS 0.1 10*3/uL Normal 0.0-0.2 The [facility] Comment on above: Order Comment: No: D o not add to previous draw Performed By: #### 8 4511 #### [facility] [address] [place] [address], [facility] ABS NEUTROPHILS 9.5 10*3/uL High 1.6-7.6 The [facility] Comment on above: Order Comment: No: D o not add to previous draw Performed By: #### 8 4511 #### [facility] [address] [place] [address], [place] Basophils (Bld) [#/Vol] 0.0 10*3/uL Normal 0.0-0.2 The [facility] Comment on above: Order Comment: No: D o not add to previous draw Performed By: #### 8 4511 #### [facility] [address] [place] [address], [place] Basophils/100 WBC (Bld) 0.3 % Normal 0.0-1.0 The [facility] Comment on above: Order Comment: No: D o not add to previous draw Performed By: #### 8 4511 #### [facility] [address] [place] [address], [place] Eosinophils (Bld) [#/Vol] 0.0 10*3/uL Normal 0.0-0.5 [facility] Comment on above: Order Comment: No: D o not add to previous draw Performed By: #### 8 4511 #### [facility] [address] [place] [address], [place] Eosinophils/100 WBC (Bld) 0.0 % Normal 0.0-6.0 The [facility] Comment on above: Order Comment: No: D o not add to previous draw Performed By: #### 8 4511 #### [facility] [address] [place] [address], [place] Erythrocyte distribution width (RBC) [Ratio] 14.3 % Normal 11.5-15.0 The [facility] Comment on above: Order Comment: No: D o not add to previous draw Performed By: #### 8 4511 #### [facility] [address] [place] [address], [place] Hematocrit (Bld) [Volume fraction] 38.8 % Normal 36.0-45.0 The [facility] Comment on above: Order Comment: No: D o not add to previous draw Performed By: #### 8 4511 #### [facility] [address] [place] [address], [facility] Hemoglobin (Bld) [Mass/Vol] 13.0 g/dL Normal 12.0-15.0 The [facility] Comment on above: Order Comment: No: D o not add to previous draw Performed By: #### 8 4511 #### [facility] [address] [place] [address], [facility] IMMATURE GRANS 1.1 % High 0.0-1.0 The [facility] Comment on above: Order Comment: No: D o not add to previous draw Performed By: #### 8 4511 #### [facility] [address] [place] [address], [facility] Lymphocytes (Bld) [#/Vol] 0.9 10*3/uL Low 1.2-4.0 The [facility] Comment on above: Order Comment: No: D o not add to previous draw Performed By: #### 8 4511 #### [facility] [address] [place] [address], [facility] Lymphocytes/100 WBC (Bld) 8.2 % Low 20.0-45.0 The [facility] Comment on above: Order Comment: No: D o not add to previous draw Performed By: #### 8 4511 #### [facility] [address] [place] [address], [facility] MCH (RBC) [Entitic mass] 31.3 pg Normal 27.0-33.0 The [facility] Comment on above: Order Comment: No: D o not add to previous draw Performed By: #### 8 4511 #### [facility] [address] [place] [address], [place] MCHC (RBC) [Mass/Vol] 33.5 g/dL Normal 32.0-35.0 The [facility] Comment on above: Order Comment: No: D o not add to previous draw Performed By: #### 8 4511 #### [facility] [address] [place] [place] [address], [facility] MCV (RBC) [Entitic vol] 93.3 fL Normal 82.0-98.0 The [facility] Comment on above: Order Comment: No: D o not add to previous draw Performed By: #### 8 4511 #### [facility] [address] [place] [address], [facility] Monocytes (Bld) [#/Vol] 1.0 10*3/uL Normal 0.1-1.0 The [facility] Comment on above: Order Comment: No: D o not add to previous draw Performed By: #### 8 4511 #### [facility] [address] [facility] [place] [address], [facility] MONOS 8.3 % Normal 5.0-12.0 The [facility] Comment on above: Order Comment: No: D o not add to previous draw Performed By: #### 8 4511 #### [facility] [address] [facility]. [place] [id number], [facility] Neutrophils/100 WBC (Bld) 82.1 % High 40.0-72.0 The [facility] Comment on above: Order Comment: No: D o not add to previous draw Performed By: #### 8 4511 #### [facility] [address] [facility] [place] [address], [facility] Nucleated RBC/100 WBC (Bld) [Ratio] 0 % Normal 0-0 The [facility] Comment on above: Order Comment: No: D o not add to previous draw Performed By: #### 8 4511 #### [facility] [address] [place] [address], [facility] PLAT CNT 176 10*3/uL Normal 150-400 The [facility] Comment on above: Order Comment: No: D o not add to previous draw Performed By: #### 8 4511 #### [facility] [address] [place] [address], [facility] RBC (Bld) [#/Vol] 4.16 10*6/uL Normal 3.80-5.00 The [facility] Comment on above: Order Comment: No: D o not add to previous draw Performed By: #### 8 4511 #### [facility] [address] [place] [address], [facility] WBC (Bld) [#/Vol] 11.53 10*3/uL High 4.00-10.60 The [facility] Comment on above: Order Comment: No: D o not add to previous draw Performed By: #### 8 4511 #### [facility] [address] [place] [address], [facility] ABS IMM GRANS 0.2 10*3/uL Normal 0.0-0.2 The [facility] Comment on above: Order Comment: Yes: Add to Previous draw if able Performed By: #### 8 [id number] #### [facility] [address] [place] [address], [facility] ABS NEUTROPHILS 12.0 10*3/uL High 1.6-7.6 The [facility] Comment on above: Order Comment: Yes: Add to Previous draw if able Performed By: #### 8 [id number] #### [facility] [address] [place] [address], [facility] Basophils (Bld) [#/Vol] 0.0 10*3/uL Normal 0.0-0.2 The [facility] Comment on above: Order Comment: Yes: Add to Previous draw if able Performed By: #### 8 [id number] #### [facility] [address] [place] [address], [facility] Basophils/100 WBC (Bld) 0.2 % Normal 0.0-1.0 The [facility] Comment on above: Order Comment: Yes: Add to Previous draw if able Performed By: #### 8 [id number] #### [facility] [address] [place] [address], [facility] Eosinophils (Bld) [#/Vol] 0.0 10*3/uL Normal 0.0-0.5 The [facility] Comment on above: Order Comment: Yes: Add to Previous draw if able Performed By: #### 8 [id number] #### [facility] [address] [place] [id number], [facility] Eosinophils/100 WBC (Bld) 0.1 % Normal 0.0-6.0 The [facility] Comment on above: Order Comment: Yes: Add to Previous draw if able Performed By: #### 8 [id number] #### [facility] [address] [place] [address], [facility] Erythrocyte distribution width (RBC) [Ratio] 14.5 % Normal 11.5-15.0 The [facility] Comment on above: Order Comment: Yes: Add to Previous draw if able Performed By: #### 8 [id number] #### [facility] [address] [place] [address], [facility] Hematocrit (Bld) [Volume fraction] 40.6 % Normal 36.0-45.0 The [facility] Comment on above: Order Comment: Yes: Add to Previous draw if able Performed By: #### 8 [id number] #### [facility] [address] [place] [id number], [facility] Hemoglobin (Bld) [Mass/Vol] 13.3 g/dL Normal 12.0-15.0 The [facility] Comment on above: Order Comment: Yes: Add to Previous draw if able Performed By: #### 8 [id number] #### [facility] [address] [place] [id number], [place] IMMATURE GRANS 1.7 % High 0.0-1.0 The [facility] Comment on above: Order Comment: Yes: Add to Previous draw if able Performed By: #### 8 [id number] #### [facility] [address] [place] [address], [facility] Lymphocytes (Bld) [#/Vol] 0.6 10*3/uL Low 1.2-4.0 The [facility] Comment on above: Order Comment: Yes: Add to Previous draw if able Performed By: #### 8 [id number] #### [facility] [address] [place] [address], [facility] Lymphocytes/100 WBC (Bld) 4.2 % Low 20.0-45.0 The [facility] Comment on above: Order Comment: Yes: Add to Previous draw if able Performed By: #### 8 [id number] #### [facility] [address] [place] [address], [facility] MCH (RBC) [Entitic mass] 31.4 pg Normal 27.0-33.0 The [facility] Comment on above: Order Comment: Yes: Add to Previous draw if able Performed By: #### 8 [id number] #### [facility] [address] [place] [address], [facility] MCHC (RBC) [Mass/Vol] 32.8 g/dL Normal 32.0-35.0 The [facility] Comment on above: Order Comment: Yes: Add to Previous draw if able Performed By: #### 8 [id number] #### [facility] [address] [place] [address], [facility] MCV (RBC) [Entitic vol] 95.8 fL Normal 82.0-98.0 The [facility] Comment on above: Order Comment: Yes: Add to Previous draw if able Performed By: #### 8 [id number] #### [facility] [address] [facility] [place] [address], [facility] Monocytes (Bld) [#/Vol] 0.8 10*3/uL Normal 0.1-1.0 The [facility] Comment on above: Order Comment: Yes: Add to Previous draw if able Performed By: #### 8 [id number] #### [facility] [address] [place] [address], [place] MONOS 5.8 % Normal 5.0-12.0 The [facility] Comment on above: Order Comment: Yes: Add to Previous draw if able Performed By: #### 8 [id number] #### [facility] [address] [place] [address], [place] Neutrophils/100 WBC (Bld) 88.0 % High 40.0-72.0 The [facility] Comment on above: Order Comment: Yes: Add to Previous draw if able Performed By: #### 8 [id number] #### [facility] [address] [place] [address], [place] Nucleated RBC/100 WBC (Bld) [Ratio] 0 % Normal 0-0 The [facility] Comment on above: Order Comment: Yes: Add to Previous draw if able Performed By: #### 8 [id number] #### [facility] [address] [place] [address], [place] PLAT CNT 163 10*3/uL Normal 150-400 The [facility] Comment on above: Order Comment: Yes: Add to Previous draw if able Performed By: #### 8 [id number] #### [facility] [address] [place] [address], [place] RBC (Bld) [#/Vol] 4.24 10*6/uL Normal 3.80-5.00 The [facility] Comment on above: Order Comment: Yes: Add to Previous draw if able Performed By: #### 8 [id number] #### [facility] [address] [place] [address], [place] WBC (Bld) [#/Vol] 13.68 10*3/uL High 4.00-10.60 The [facility] Comment on above: Order Comment: Yes: Add to Previous draw if able Performed By: #### 8 [id number] #### [facility] [address] [place] [address], [place] COMP METABOLIC PANELon 11-21 Albumin [Mass/Vol] 4.1 g/dL Normal 3.5-5.7 The [facility] Comment on above: Performed By: #### 8 4511 #### [facility] [address] [place] [address], [place] ALKALINE PHOSPH 196 IU/L High 34-104 The [facility] Comment on above: Performed By: #### 8 4511 #### [facility] [address] [place] [address], [place] ALT [Catalytic activity/Vol] 560 U/L Critically high 7-52 The [facility] Comment on above: Performed By: #### 8 4511 #### [facility] [address] [place] [address], [place] AST [Catalytic activity/Vol] 852 U/L High 13-39 The [facility] Comment on above: Performed By: #### 8 4511 #### [facility] [address] [place] [address], [place] Bilirubin [Mass/Vol] 0.9 mg/dL Normal 0.3-1.0 The [facility] Comment on above: Performed By: #### 8 4511 #### [facility] [address] [place] [address], [place] Calcium [Mass/Vol] 8.9 mg/dL Normal 8.6-10.3 The [facility] Comment on above: Performed By: #### 8 4511 #### [facility] [address] [place] [address], [place] Chloride [Moles/Vol] 101 mmol/L Normal 98-107 The [facility] Comment on above: Performed By: #### 8 4511 #### [facility] [address] [place] [address], [place] CO2 [Moles/Vol] 22 mmol/L Normal 21-31 The [facility] Comment on above: Performed By: #### 8 4511 #### [facility] [address] [place] [place] [address], [facility] Creatinine [Mass/Vol] 1.90 mg/dL High 0.60-1.20 The [facility] Comment on above: Performed By: #### 8 4511 #### [facility] [address] [place] [address], [facility] EGFR 31 ml/min/1.73sq m Abnormal >60 The [facility] Comment on above: Result Comment: The [facility]'s estimated glomerular filtration rate (eGFR) will no [...] individuals. Performed By: #### 8 4511 #### [facility] [address] [place] [address], [facility] Glucose [Mass/Vol] 436 mg/dL High 70-100 The [facility] Comment on above: Performed By: #### 8 4511 #### [facility] [address] [facility] [place] [address], [facility] Potassium [Moles/Vol] 4.4 mmol/L Normal 3.5-5.1 The [facility] Comment on above: Performed By: #### 8 4511 #### [facility] [address] [place] [address], [facility] Protein [Mass/Vol] 6.9 g/dL Normal 6.0-8.3 The [facility] Comment on above: Performed By: #### 8 4511 #### [facility] [address] [facility] [place] [address], [facility] Sodium [Moles/Vol] 136 mmol/L Normal 136-145 [facility] Comment on above: Performed By: #### 8 4511 #### [facility] [address] [facility] [place] [address], [facility] Urea nitrogen [Mass/Vol] 30 mg/dL High 7-25 [facility] Comment on above: Performed By: #### 8 4511 #### [facility] [address] [facility] [place] [address], [facility] CT BRAIN WO CONTRASTon 11-21 CT BRAIN WO CONTRAST [facility] Department of Radiology [address] [place] [address] [id number] Patient Name: RAQUEL VILA : 1965 Sex: F Age: Race: White Pt. Location: [place] [address] Patient Status: I Ordered Date: 11/20/2021 10:30:00 [...] Electronically signed: Aziza Funes M.D.. Transcribed by: [email or web address], User Resident: Electronically Signed by: AZIZA FUNES @ 11/20/2021 11:03 PM Normal The [facility] Comment on above: Order Comment: Other ELECTROLYTE PANELon 11-22-19 22 CARBON DIOXIDE CANCELED Normal 21-31 The [facility] Comment on above: Result Comment: The released value 23 was canceled by [email or web address] on 11/21/2021 02:22 Performed By: #### 8 4511 #### [facility] [address] [place] [address], [place] CHLORIDE CANCELED Normal 98-107 The [facility] Comment on above: Result Comment: The released value 101 was canceled by [email or web address] on 11/21/2021 02:22 Performed By: #### 8 4511 #### [facility] [address] [place] [address], [place] POTASSIUM CANCELED Normal 3.5-5.1 The [facility] Comment on above: Result Comment: The released value 4.4 was canceled by [email or web address] on 11/21/2021 02:22 Performed By: #### 8 4511 #### [facility] [address] [place] [address], [place] SODIUM CANCELED Normal 136-145 The [facility] Comment on above: Result Comment: The released value 135 was canceled by [email or web address] on 11/21/2021 02:22 Performed By: #### 8 4511 #### [facility] [address] [place] [id number], [facility] LACTATE BLOODon 11-21-2021 Lactate [Moles/Vol] 2.1 mmol/L Normal .5-2.2 The [facility] Comment on above: Order Comment: No: D o not add to previous draw Performed By: #### 8 4511 #### [facility] [address] [place] [address], [facility] Lactate [Moles/Vol] 2.1 mmol/L Normal .5-2.2 The [facility] Comment on above: Order Comment: RESUL TS CHECKED AND CALLED. ACCURATELY READ BACK BY Jina TAVAREZ ED, RN Performed By: #### 8 4511 #### [facility] [address] [facility] [place] [address], [facility] MAGNESIUM BLOODon 11-21-2021 Magnesium [Mass/Vol] 2.0 mg/dL Normal 1.9-2.7 The [facility] Comment on above: Order Comment: RESUL TS CHECKED AND CALLED. ACCURATELY READ BACK BY Jina TAVAREZ ED, RN Performed By: #### 8 4511 #### [facility] [address] [place] [place] [address], [facility] OSMOLALITY BLOODon 2 Osmolality [Osmolality] 319 mosm/kg High 285-305 The [facility] Comment on above: Order Comment: No: D o not add to previous draw Performed By: #### 8 4511 #### [facility] [address] [facility] [place] [address], [facility] PHOSPHORUS BLOODon 2 Phosphate [Mass/Vol] 3.1 mg/dL Normal 2.5-5.0 The [facility] Comment on above: Order Comment: RESUL TS CHECKED AND CALLED. ACCURATELY READ BACK BY Jina TAVAREZ ED, RN Performed By: #### 8 4511 #### [facility] [address] [place] [address], [place] POC GLUCOSE LABon 11-21-2021 Glucose [Mass/Vol] 150 mg/dL High 70-100 [facility] Comment on above: Performed By: #### 8 [id number] #### [facility] [address] [place] [address], [place] Glucose [Mass/Vol] 149 mg/dL High 70-100 [facility] Comment on above: Performed By: #### 8 [id number] #### [facility] [address] [place] [address], [place] Glucose [Mass/Vol] 178 mg/dL High 70-100 [facility] Comment on above: Performed By: #### 8 4511 #### [facility] [address] [place] [address], [place] Glucose [Mass/Vol] 173 mg/dL High 70-100 [facility] Comment on above: Performed By: #### 8 4511 #### [facility] [address] [place] [address], [place] Glucose [Mass/Vol] 158 mg/dL High 70-100 [facility] Comment on above: Performed By: #### 8 5499 #### [facility] [address] [place] [address], [place] Glucose [Mass/Vol] 165 mg/dL High 70-100 [facility] Comment on above: Performed By: #### 8 4511 #### [facility] [address] [place] [address], [place] Glucose [Mass/Vol] 185 mg/dL High 70-100 [facility] Comment on above: Performed By: #### 8 5499 #### [facility] [address] [place] [address], [place] Glucose [Mass/Vol] 200 mg/dL High 70-100 [facility] on above: Performed By: #### 8 5499 ####[facility] [place] [address], [place] Glucose [Mass/Vol] 230 mg/dL High 70-100 [facility] on above: Performed By: #### 8 4511 #### [facility] [address] [place] [address], [place] Glucose [Mass/Vol] 265 mg/dL High 70-100 [facility] Comment on above: Performed By: #### 8 5499 #### [facility] [address] [place] [address], [place] Glucose [Mass/Vol] 352 mg/dL High 70-100 [facility] Comment on above: Performed By: #### 8 5499 #### [facility] [address] [place] [address], [place] Glucose [Mass/Vol] 403 mg/dL High 70-100 The [facility] Comment on above: Performed By: #### 8 5499 #### [facility] [address] [place] [address], [place] Glucose [Mass/Vol] 502 mg/dL Critically high 70-100 T [facility] Comment on above: Order Comment: NOTE: Critical Value Performed By: #### 8 [id number] #### [facility] [address] [place] [address], [place] Glucose [Mass/Vol] 490 mg/dL High 70-100 The [facility] Comment on above: Performed By: #### 8 5499 #### [facility] [address] [place] [address], [place] PROCALCITONINon 11-21-2021 PROCALCITONIN 1.17 ng/mL High 0.00-0.10 The [facility] Comment on above: Result Comment: Susp [...] PCT<0.5ng/mL Performed By: #### 8 4511 #### [facility] [address] [place] [address], [facility] TRIGLYCERIDES BLOODon 2021 Triglyceride [Mass/Vol] 121 mg/dL Normal 40-149 [facility] Comment on above: Order Comment: RESUL TS CHECKED AND CALLED. ACCURATELY READ BACK BY Jina TAVAREZ ED RN Result Comment: TRIG LYCERIDE REFERENCE RANGE: 20 YEARS AND OLDER CARDIOVASCULAR RISK LESS THAN 150 mg/dl LOW RISK 150 TO 199 mg/dl BORDERLINE RISK 200 mg/dl AND GREATER HIGH RISK Performed By: #### 8 4511 #### [facility] [address] [place] [address], [facility] ACETONE SERUMon 11-20-2021 ACETONE Negative Normal NEGATIVE [facility] Comment on above: Performed By: #### V ITAD #### [facility] [address] [place], [place] [address] Dr. Kelsie Dominguez ARTERIAL BLOOD GAS WITH ICAo n 11-20-2021 BASE EXCESS -4 mmol/L Low -2-3 The [facility] Comment on above: Order Comment: RESUL TS CHECKED AND CALLED. ACCURATELY READ BACK BY Jina TAVAREZ ED RN Performed By: #### 8 4511 #### [facility] [address] [employer] VENTILATOR Normal The [facility] Comment on above: Order Comment: RESUL TS CHECKED AND CALLED. ACCURATELY READ BACK BY Jina TAVAREZ ED RN Performed By: #### 8 4511 #### [facility] [address] [facility]. [address] FIO2 100 % Normal The [facility] Comment on above: Order Comment: RESUL TS CHECKED AND CALLED. ACCURATELY READ BACK BY Jina TAVAREZ ED RN Performed By: #### 8 4511 #### [facility] [address] [place] [address], [facility] HCO3 (Bld) [Moles/Vol] 23 mmol/L Normal 21-28 The [facility] Comment on above: Order Comment: RESUL TS CHECKED AND CALLED. ACCURATELY READ BACK BY Jina TAVAREZ ED RN Performed By: #### 8 4511 #### [facility] [address] [facility] [place] [address], [facility] IONIZED CALCIUM 1.13 mmol/L Normal 1.13-1.32 The [facility] Comment on above: Order Comment: RESUL TS CHECKED AND CALLED. ACCURATELY READ BACK BY Jina TAVAREZ ED, RN Performed By: #### 8 4511 #### [facility] [address] [facility] [place] [address], [facility] MIN VOLUME 11.0 Normal The [facility] Comment on above: Order Comment: RESUL TS CHECKED AND CALLED. ACCURATELY READ BACK BY Jina TAVAREZ ED, RN Performed By: #### 8 4511 #### [facility] [address] [facility] [place] [address], [facility] MODALITY AC VC Normal The [facility] Comment on above: Order Comment: RESUL TS CHECKED AND CALLED. ACCURATELY READ BACK BY Jina TAVAREZ ED RN Performed By: #### 8 4511 #### [facility] [address] [place] [address], [facility] Oxygen (Bld) [Partial pressure] 68 mm[Hg] Low 83-108 The [facility] Comment on above: Order Comment: RESUL TS CHECKED AND CALLED. ACCURATELY READ BACK BY Jina TAVAREZ ED RN Performed By: #### 8 4511 #### [facility] [address] [place] [place] [address], [facility] Oxygen saturation in Blood 91.7 % Low 94.0-97.0 The [facility] Comment on above: Order Comment: RESUL TS CHECKED AND CALLED. ACCURATELY READ BACK BY Jina TAVAREZ ED RN Performed By: #### 8 4511 #### [facility] [address] [place] [address], [facility] PCO2 52 mmHg High 35-45 The [facility] Comment on above: Order Comment: RESUL TS CHECKED AND CALLED. ACCURATELY READ BACK BY Jina TAVAREZ ED RN Performed By: #### 8 4511 #### [facility] [address] [place] [address], [facility] PEEP 10.0 CMH20 Normal The [facility] Comment on above: Order Comment: RESUL TS CHECKED AND CALLED. ACCURATELY READ BACK BY Jina TAVRAEZ ED RN Performed By: #### 8 4511 #### [facility] [address] [place] [address], [place] pH (Bld) 7.26 [pH] Low 7.35-7.45 The [facility] Comment on above: Order Comment: RESUL TS CHECKED AND CALLED. ACCURATELY READ BACK BY Jina TAVAREZ ED RN Performed By: #### 8 4511 #### [facility] [address] [place] [address], [facility] Respiratory rate 24 /min Normal The [facility] Comment on above: Order Comment: RESUL TS CHECKED AND CALLED. ACCURATELY READ BACK BY Jina TAVRAEZ ED RN Performed By: #### 8 4511 #### [facility] [address] [place] [address], [facility] TIDAL VOLUME (VT) CC 450 Normal [facility] Comment on above: Order Comment: RESUL TS CHECKED AND CALLED. ACCURATELY READ BACK BY Jina TAVAREZ ED RN Performed By: #### 8 4511 #### [facility] [address] [place] [address], [facility] BASE EXCESS -10 mmol/L Low -2-3 The [facility] Comment on above: Performed By: #### 8 4511 #### [facility] [address] [place] [address], [facility] DELIVERY SYSTEMS VENTILATOR Normal The [facility] Comment on above: Performed By: #### 8 4511 #### [facility] [address] [place] [address], [facility] FIO2 60 % Normal [facility] Comment on above: Performed By: #### 8 4511 #### [facility] [address] [place] [address], [place] HCO3 (Bld) [Moles/Vol] 20 mmol/L Low 21-28 The [facility] Comment on above: Result Comment: RESU LTS CHECKED AND CALLED. ACCURATELY READ BACK BY Jina TAVAREZ ED RN Performed By: #### 8 4511 #### [facility] [address] [place] [address], [place] IONIZED CALCIUM 1.13 mmol/L Normal 1.13-1.32 The [facility] Comment on above: Performed By: #### 8 4511 #### [facility] [address] [place] [address], [place] MIN VOLUME 6.8 Normal [facility] Comment on above: Performed By: #### 8 4511 #### [facility] [address] [place] [address], [place] MODALITY AV VC Normal [facility] Comment on above: Performed By: #### 8 4511 #### [facility] [address] [place] [address], [place] Oxygen (Bld) [Partial pressure] 65 mm[Hg] Low 83-108 The [facility] Comment on above: Performed By: #### 8 4511 #### [facility] [address] [place] [address], [place] Oxygen saturation in Blood 87.0 % Critically low 94.0-97.0 The [facility] Comment on above: Performed By: #### 8 4511 #### [facility] [address] [place] [address], [place] PCO2 59 mmHg Critically high 35-45 The [facility] Comment on above: Performed By: #### 8 4511 #### [facility] [address] [place] [address], [place] PEEP 8.0 CMH20 Normal [facility] Comment on above: Performed By: #### 8 4511 #### [facility] [address] [place] [address], [place] pH (Bld) 7.14 [pH] Critically low 7.35-7.45 The [facility] Comment on above: Result Comment: RESU LTS CHECKED AND CALLED. ACCURATELY READ BACK BY Jina TAVAREZ ED RN Performed By: #### 8 4511 #### [facility] [address] [place] [address], [place] Respiratory rate 14 /min Normal [facility] Comment on above: Performed By: #### 8 4511 #### [facility] [address] [place] [address], [place] TIDAL VOLUME (VT) CC 500 Normal [facility] Comment on above: Performed By: #### 8 4511 #### [facility] [address] BASIC METABOLIC PANELon 08-0 Calcium [Mass/Vol] 8.5 mg/dL Low 8.6-10.3 The [facility] Comment on above: Performed By: #### 8 5499 #### [facility] [address] Chloride [Moles/Vol] 102 mmol/L Normal 98-107 The [facility] Comment on above: Performed By: #### 8 [id number] #### [facility] [address] CO2 [Moles/Vol] 19 mmol/L Low 21-31 The [facility] Comment on above: Performed By: #### 8 5499 #### [facility] [address] Creatinine [Mass/Vol] 1.89 mg/dL High 0.60-1.20 The [facility] Comment on above: Performed By: #### 8 5499 #### [facility] [address] EGFR 31 ml/min/1.73sq m Abnormal >60 The [facility] Comment on above: Result Comment: The [facility]'s estimated glomerular filtration rate (eGFR) will no [...] individuals. Performed By: #### 8 [id number] #### [facility] [address] [facility] [place] [address], [facility] Glucose [Mass/Vol] 465 mg/dL High 70-100 [facility] Comment on above: Performed By: #### 8 5499 #### [facility] [address] [facility] [place] [address], [facility] Potassium [Moles/Vol] 6.2 mmol/L Critically high 3.5-5.1 The [facility] Comment on above: Result Comment: M-CR ITICAL RESULT(S) REVIEWED, CALLED TO AND READ BACK BY Alexandra Vásquez RN at 2021. M-No hemolysis. Performed By: #### 8 [id number] #### [facility] [address] [facility] [place] [address], [facility] Sodium [Moles/Vol] 135 mmol/L Low 136-145 The [facility] Comment on above: Performed By: #### 8 [id number] #### [facility] [address] [facility] [place] [address], [facility] Urea nitrogen [Mass/Vol] 28 mg/dL High 7-25 The [facility] Comment on above: Performed By: #### 8 [id number] #### [facility] [address] [place] [address], [facility] BLOOD GASES BTYon 11-20-2021 02 MODE VENTILATOR Normal [facility] Comment on above: Performed By: #### V ITAD #### [facility] [address] [address] [address] Kelsie Dominguez ALLENS TEST Positive Normal [facility] Comment on above: Performed By: #### V ITAD #### [facility] [address] [address] [address] Kelsie Dominguez Base excess Calc (Bld) [Moles/Vol] -14.46613 mmol/L Critically low -2.0-2.0 [facility] Comment on above: Performed By: #### V ITAD #### [facility] [address] [address] [address] Kelsie Dominguez BIPAP PRESSURE Normal The [facility] Comment on above: Performed By: #### V ITAD #### [facility] [address] [address] [address] Kelsie Dominguez CO2 [Moles/Vol] 34.7 mmol/L Critically high 23.0-28.0 [facility] Comment on above: Performed By: #### V ITAD #### [facility] [address] [place] [address] Dr. Kelsie Dominguez CPAP Normal [facility] Comment on above: Performed By: #### V ITAD #### [facility] [address] [place] [address] Dr. Kelsie Dominguez FIO2 100.00 % [facility] Comment on above: Performed By: #### V ITAD #### [facility] [address] [place] [address] Dr. Kelsie Dominguez HCO3 (Bld) [Moles/Vol] 13.8 mmol/L Critically low 22.0-26.0 [facility] Comment on above: Performed By: #### V ITAD #### [facility] [address] [place] [address] Dr. Kelsie Dominguez LPM [facility] Comment on above: Performed By: #### V ITAD #### [facility] [address] [place] [address] Dr. Kelsie Dominguez MINUTE VOLUME Normal [facility] Comment on above: Performed By: #### V ITAD #### [facility] [address] [place] [address] Dr. Kelsie Dominguez Oxygen (Bld) [Partial pressure] 122.0 mm[Hg] Critically high 80.0-100.0 [facility] Comment on above: Performed By: #### V ITAD #### [facility] [address] [place] [address] Dr. Kelsie Dominguez Oxygen saturation in Blood 97.0 % Normal 95.0-100.0 [facility] Comment on above: Performed By: #### V ITAD #### [facility] [address] [place] [address] Dr. Kelsie Dominguez PCO2 53.1 mmHg Critically high 35.0-45.0 [facility] Comment on above: Performed By: #### V ITAD #### [facility] [address] [place] [address] Dr. Kelsie Dominguez PEEP 8 [facility] Comment on above: Performed By: #### V ITAD #### [facility] [address] [place] [address] Dr. Kelsie Dominguez pH (Bld) 7.084 [pH] Critically low 7.350-7.450 [facility] Comment on above: Performed By: #### V ITAD #### [facility] [address] [place] [address] Dr. Kelsie Dominguez PIP [facility] Comment on above: Performed By: #### V ITAD #### [facility] [address] [place] [address] Dr. Kelsie Dominguez PS 14 [facility] Comment on above: Performed By: #### V ITAD #### [facility] [address] [place] [address] Dr. Kelsie Dominguez PUNCTURE SITE RR [facility] Comment on above: Performed By: #### V ITAD #### [facility] [address] [place] [address] Dr. Kelsie Dominguez RATE 20 bpm [facility] Comment on above: Performed By: #### V ITAD #### [facility] [address] [place] [address] Dr. Kelsie Dominguez VENT MODE PSIMV [facility] Comment on above: Performed By: #### V ITAD #### [facility] [address] [place] [address] Dr. Kelsie Dominguez [place] [facility] Comment on above: Performed By: #### V ITAD #### [facility] [address] [place] [address] Dr. Kelsie Dominguez BNPon 11-20-2021 Natriuretic peptide B (Bld) [Mass/Vol] 2560.0 pg/mL Critically high <=900.0 [facility] Comment on above: Performed By: #### C MP, CMADM, BNP #### [facility] [address] [address] [address] Kelsie Dominguez CARDIAC JANIA ADMITon 022 CK [Catalytic activity/Vol] 93 U/L Normal 26-192 [facility] Comment on above: Performed By: #### C MP, CMADM, BNP #### [facility] [address] [place] [address] Dr. Kelsie Dominguez CK.MB [Mass/Vol] 2.87 ng/mL Normal <=3.60 The [facility] Comment on above: Performed By: #### C MP, CMADM, BNP #### [facility] [address] [place] [address] Dr. Kelsie Dominguez HSTROP 12.2 pg/mL Normal 4.0-51.3 [facility] Comment on above: Result Comment: CUT- OFF POINTS HAVE BEEN ESTABLISHED BASED ON THE FOURTH UNIVERSAL DEFINITIONS OF MYOCARDIAL INFARCTION. THE UPPER REFERENCE LIMIT (URL) OF TROPONIN, DEFINED THE 99TH PERCENTILE OF cTnI DISTRIBUTION IN A REFERENCE POPULATION, HAS BEEN CONFIRMED THE DECISION THRESHOLD FOR LA DIAGNOSIS. Performed By: #### C MP, CMADM, BNP #### [facility] [address] [place] [address] Dr. Kelsie Dominguez VARGAS 112 ng/mL Critically high 9-82 [facility] Comment on above: Performed By: #### C MP, CMADM, BNP #### [facility] [address] [place] [address] Dr. Kelsie Dominguez CBC W MANUAL DIFFon 11-21-19 22 ATYPICAL LYMPH # Normal [facility] Comment on above: Performed By: #### C BCMAN #### [facility] [address] [place] [address] Dr. Kelsie Dominguez ATYPICAL LYMPH % Normal [facility] Comment on above: Performed By: #### C BCMAN #### [facility] [address] [place] [address] Dr. Kelsie Dominguez BAND # 0.1 103/ul Normal 0.0-0.3 [facility] Comment on above: Performed By: #### C BCKASEY #### [facility] [address] [place] [address] Dr. Kelsie Dominguez BAND % 1 % Normal 0-5 [facility] Comment on above: Performed By: #### C LIBERTAD #### [facility] [address] [place] [address] Dr. Kelsie Dominguez BASOM # 0.00 103/ul Normal 0.00-0.10 [facility] Comment on above: Performed By: #### C BCKASEY #### [facility] [address] [place] [address] Dr. Kelsie Dominguez BASOM % 0.0 % Critically low 0.2-2.0 [facility] Comment on above: Performed By: #### C LIBERTAD #### [facility] [address] [place] [address] Dr. Kelsie Dominguez BLAST # Normal [facility] Comment on above: Performed By: #### C LIBERTAD #### [facility] [address] [place] [address] Dr. Kelsie Dominguez BLAST % Normal [facility] Comment on above: Performed By: #### C LIBERTAD #### [facility] [address] [place] [address] Dr. Kelsie Dominguez CORRECTED WBC Normal 4.0-11.0 [facility] Comment on above: Performed By: #### C LIBERTAD #### [facility] [address] [place] [address] Dr. Kelsie Dominguez EOS # 0.00 103/ul Normal 0.00-0.70 [facility] Comment on above: Performed By: #### C LIBERTAD #### [facility] [address] [place] [address] Dr. Kelsie Dominguez EOS% 0.0 % Critically low 0.9-7.0 The [facility] Comment on above: Performed By: #### C LIBERTAD #### [facility] [address] [place] [address] Dr. Kelsie Dominguez HCT 43.8 % Normal 36.0-48.0 [facility] Comment on above: Performed By: #### C LIBERTAD #### [facility] [address] [address] [address] Kelsie Dominguez HGB 13.3 g/dl Normal 12.0-16.0 [facility] Comment on above: Performed By: #### C LIBERTAD #### [facility] [address] [address] [address] Kelsie Dominguez LYMPHM # 3.78 103/ul Normal 1.20-3.80 [facility] Comment on above: Performed By: #### C LIBERTAD #### [facility] [address] [place] [address] Dr. Kelsie Dominguez LYMPHM% 27.0 % Normal 20.5-60.0 [facility] Comment on above: Performed By: #### C LIBERTAD #### [facility] [address] [place] [address] Dr. Kelsie Dominguez MCH 31.4 pg Normal 26.7-34.0 [facility] Comment on above: Performed By: #### C LIBERTAD #### [place] [facility] [address] [place] [address] Dr. Kelsie Dominguez MCHC 30.4 g/dl Normal 29.9-35.2 [facility] Comment on above: Performed By: #### C LIBERTAD #### [facility] [address] [place] [address] Dr. Kelsie Dominguez MCV 103.3 fL Critically high 81.0-99.0 [facility] Comment on above: Performed By: #### C LIBERTAD #### [facility] [address] [place] [address] Dr. Kelsie Dominguez METAMYELOCYTE # Normal [facility] Comment on above: Performed By: #### C LIBERTAD #### [facility] [address] [place] [address] Dr. Kelsie Dominguez METAMYELOCYTE % Normal [facility] Comment on above: Performed By: #### C LIBERTAD #### [facility] [address] [place] [address] Dr. Kelsie Dominguez MONOM# 1.12 103/ul Critically high 0.30-0.80 [facility] Comment on above: Performed By: #### C LIBERTAD #### [facility] [address] [place] [address] Dr. Kelsie Dominguez MONOM% 8.0 % Normal 1.7-12.0 [facility] Comment on above: Performed By: #### C LIBERTAD #### [facility] [address] [place] [address] Dr. Kelsie Dominguez MPV 9.2 fL Critically low 9.5-13.5 [facility] Comment on above: Performed By: #### C LIBERTAD #### [facility] [address] [place] [address] Dr. Kelsie Dominguez MYELOCYTE # Normal [facility] Comment on above: Performed By: #### C LIBERTAD #### [facility] [address] [place] [address] Dr. Kelsie Dominguez MYELOCYTE % Normal [facility] Comment on above: Performed By: #### C LIBERTAD #### [facility] [address] [place] [address] Dr. Kelsie Dominguez NRBC Normal [facility] Comment on above: Performed By: #### C LIBERTAD #### [facility] [address] [place] [address] Dr. Kelsie Dominguez PLT 213 103/ul Normal 150-450 [facility] Comment on above: Performed By: #### C LIBERTAD #### [facility] [address] [place] [address] Dr. Kelsie Dominguez RBC 4.24 106/ul Normal 4.20-5.40 [facility] Comment on above: Performed By: #### C LIBERTAD #### [facility] [address] [place] [address] Dr. Kelsie Dominguez RDW 14.6 % Normal 11.0-15.0 [facility] Comment on above: Performed By: #### C LIBERTAD #### [facility] [address] [place] [address] Dr. Kelsie Dominguez SEG # 8.96 103/ul Critically high 1.40-6.50 [facility] Comment on above: Performed By: #### Swapna MAURER #### [facility] [address] [address] [address] Kelsie Dominguez SEG % 64.0 % Normal 43.0-75.0 [facility] Comment on above: Performed By: #### C LIBERTAD #### [facility] [address] [address] [address] Kelsie Dominguez WBC 14.0 103/ul Critically high 4.0-11.0 [facility] Comment on above: Performed By: #### Swapna MAURER #### [facility] [address] [address] [address] Kelsie Dominguez Covid-19 PCR ([facility])on SARS-CoV-2 (COVID-19) RNA SUZANNA+probe Ql (Unsp spec) Not detected Normal NOT DETECTED [facility] Comment on above: Result Comment: When diagnostic [...] for this test is supported by the [place] of Health and Human Service's declaration that [...] no longer be used). Performed By: #### Swapna MAURER #### [facility] [address] [place] [address] Dr. Kelsie Dominguez D-DIMERon 11-20-2021 D-DIMER 2.80 mg/L FEU Critically high <=0.59 [facility] Comment on above: Performed By: #### V ITAD #### [facility] [address] [address] [address] Kelsie Dominguez D-DIMER COMMENTS SEE BELOW Normal [facility] Comment on above: Result Comment: Incr [...] hospitalization. Performed By: #### V ITAD #### [facility] [address] [address] [address] Kelsie Dominguez LACTATE BLOODon 11-20-2021 Lactate [Moles/Vol] 5.2 mmol/L Critically high .5-2.2 The [facility] Comment on above: Order Comment: RESUL TS CHECKED AND CALLED. ACCURATELY READ BACK BY Jina TAVAREZ ED, RN Result Comment: M-CR ITICAL RESULT(S) REVIEWED, CALLED TO AND READ BACK BY Alexandra Vásquez RN at 2140. Performed By: #### [id number] #### [facility] [address] [facility]. [address] LACTATE/LACTIC ACIDon 2021 Lactate [Moles/Vol] 12.3 mmol/L Critically high 0.4-1.9 [facility] Comment on above: Performed By: #### H H #### [facility] [address] [address] [address] Kelsie Dominguez LIVER BATTERYon 11-20-2021 Albumin [Mass/Vol] 4.1 g/dL Normal 3.5-5.7 [facility] Comment on above: Performed By: #### [id number] #### [facility] [address] [facility] [place] [address], [facility] ALKALINE PHOSPH 213 IU/L High 34-104 [facility] Comment on above: Performed By: #### 8 [id number] #### [facility] [address] [place] [address], [facility] ALT [Catalytic activity/Vol] 437 U/L Critically high 7-52 [facility] Comment on above: Performed By: #### [id number] #### [facility] [address] [place] [address], [place] AST [Catalytic activity/Vol] 717 U/L High 13-39 [facility] Comment on above: Performed By: #### [id number] #### [facility] [address] [place] [address], [place] Bilirubin [Mass/Vol] 1.7 mg/dL High 0.3-1.0 [facility] Comment on above: Performed By: #### 8 [id number] #### [facility] [address] [place] [address], [place] Bilirubin.direct [Mass/Vol] 0.9 mg/dL High 0.0-0.2 [facility] Comment on above: Performed By: #### [id number] #### [facility] [address] [place] [address], [place] Protein [Mass/Vol] 6.8 g/dL Normal 6.0-8.3 The [facility] Comment on above: Performed By: #### 8 [id number] #### [facility] [address] [place] [address], [place] MAGNESIUM BLOODon 11-20-2021 Magnesium [Mass/Vol] 2.1 mg/dL Normal 1.9-2.7 [facility] Comment on above: Performed By: #### [id number] #### [facility] [address] [place] [address], [place] PHOSPHORUS BLOODon Phosphate [Mass/Vol] 7.1 mg/dL High 2.5-5.0 [facility] Comment on above: Performed By: #### 8 [id number] #### [facility] [id number] [place] [address] POINT OF CARE GLUCOSEon Glucose [Mass/Vol] 477 mg/dL Critically high 74-106 [facility] Comment on above: Performed By: #### C LIBERTAD #### [facility] [address] [address] [address] Kelsie Dominguez PORTABLE CHEST 1 VIEWon PORTABLE CHEST 1 VIEW [facility] Department of Radiology [address] [place] [address] Patient Name: RAQUEL VILA : 1965 Sex: F Age: Race: White Pt. Location: [facility] Patient Status: E Ordered Date: 11/20/2021 [...] Electronically signed: Aziza Funes M.D.. Transcribed by: [email or web address], User Resident: Electronically Signed by: AZIZA FUNES @ 11/20/2021 09:02 PM Normal [facility] Comment on above: Order Comment: Check E.T. Position PROF 14(COMP METB)on 022 Albumin [Mass/Vol] 3.4 g/dL Normal 3.4-5.0 [facility] Comment on above: Performed By: #### C MP, CMADM, BNP #### [facility] [address] [place] [address] Dr. Kelsie Dominguez Albumin/Globulin [Mass ratio] 0.9 {ratio} Normal [facility] Comment on above: Performed By: #### C MP, CMADM, BNP #### [facility] [address] [place] [address] Dr. Kelsie Dominguez ALP [Catalytic activity/Vol] 161 U/L Critically high 46-116 [facility] Comment on above: Performed By: #### C MP, CMADM, BNP #### [facility] [address] [address] [address] Kelsie Dominguez ALT [Catalytic activity/Vol] 91 U/L Critically high 14-59 [facility] Comment on above: Performed By: #### C MP, CMADM, BNP #### [facility] [address] [address] [address] Kelsie Dominguez Anion gap [Moles/Vol] 29.0 mmol/L Normal [facility] Comment on above: Performed By: #### C MP, CMADM, BNP #### [facility] [address] [address] [address] Kelsie Dominguez AST [Catalytic activity/Vol] 134 U/L Critically high 15-37 [facility] Comment on above: Performed By: #### C MP, CMADM, BNP #### [facility] [address] [address] [address] Kelsie Dominguez Bilirubin [Mass/Vol] 1.0 mg/dL Normal 0.2-1.0 [facility] Comment on above: Performed By: #### C MP, CMADM, BNP #### [facility] [address] [address] [address] Kelsie Dominguez Calcium [Mass/Vol] 8.9 mg/dL Normal 8.5-10.1 [facility] Comment on above: Performed By: #### C MP, CMADM, BNP #### [facility] [address] [address] [address] Kelsie Dominguez Chloride [Moles/Vol] 98 mmol/L Normal 98-107 [facility] Comment on above: Performed By: #### C MP, CMADM, BNP #### [facility] [address] [place] [address] Dr. Kelsie Dominguez CO2 [Moles/Vol] 15.6 mmol/L Critically low 21.0-32.0 [facility] Comment on above: Performed By: #### C MP, CMADM, BNP #### [facility] [address] [place] [address] Dr. Kelsie Dominguez Creatinine [Mass/Vol] 2.18 mg/dL Critically high 0.55-1.02 [facility] Comment on above: Performed By: #### C MP, CMADM, BNP #### [facility] [address] [place] [address] Dr. Kelsie Dominguez EGFR-AF BURMESE 28 mL/min/1.73m2 Critically low >=60 [facility] Comment on above: Performed By: #### C MP, CMADM, BNP #### [facility] [address] [place] [address] Dr. Kelsie Dominguez EGFR-NON AF BURMESE 23 mL/min/1.73m2 Critically low >=60 [facility] Comment on above: Performed By: #### C MP, CMADM, BNP #### [facility] [address] [place] [address] Dr. Kelsie Dominguez Globulin (S) [Mass/Vol] 3.9 g/dL Normal [facility] Comment on above: Performed By: #### C MP, CMADM, BNP #### [facility] [address] [address] [address] Kelsie Dominguez Glucose [Mass/Vol] 587 mg/dL Critically high 74-106 [facility] Comment on above: Performed By: #### C MP, CMADM, BNP #### [facility] [address] [address] [address] Kelsie Dominguez Potassium [Moles/Vol] 6.6 mmol/L Critically high 3.5-5.1 [facility] Comment on above: Performed By: #### C MP, CMADM, BNP #### [facility] [address] [address] [address] Kelsie Dominguez Protein [Mass/Vol] 7.3 g/dL Normal 6.4-8.2 [facility] Comment on above: Performed By: #### C MP, CMADM, BNP #### [facility] [address] [address] [address] Kelsie Dominguez Sodium [Moles/Vol] 136 mmol/L Normal 136-145 [facility] Comment on above: Performed By: #### C MP, CMADM, BNP #### [facility] [address] [address] [address] Kelsie Dominguez Urea nitrogen [Mass/Vol] 25.0 mg/dL Critically high 7.0-18.0 [facility] Comment on above: Performed By: #### C MP, CMADM, BNP #### [facility] [address] [address] [address] Kelsie Dominguez Urea nitrogen/Creatinine [Mass ratio] 11.5 mg/mg Normal [facility] Comment on above: Performed By: #### C MP, CMADM, BNP #### [facility] [address] [address] [address] Kelsie Dominguez PROTIMEon 11-20-2021 INR Coag (PPP) [Relative time] 1.06 {INR} Normal [facility] Comment on above: Performed By: #### V ITAD #### [facility] [address] [address] [address] Kelsie Dominguez INR GUIDELINES SEE BELOW Normal [facility] Comment on above: Result Comment: EDDI RED INR: 2.0 - 3.0 CONDITIONS NOT LISTED BELOW 2.5 - 3.5 FOR PROSTHETIC HEART VALVE REPLACEMENT 2.5 - 3.5 RECURRENT THROMBOSIS Performed By: #### V ITAD #### [facility] [address] [address] [address] Kelsie Dominguez PT Coag (PPP) [Time] 11.4 s Normal 9.0-11.6 [facility] Comment on above: Performed By: #### V ITAD #### [facility] [address] [address] [address] Kelsie Dominguez PTTon 11-20-2021 aPTT Coag (Bld) [Time] 29.0 s Normal 22.3-36.2 [facility] Comment on above: Performed By: #### V ITAD #### [facility] [address] [place] [address] Dr. Kelsie Dominguez TROPONIN-Ion 11-20-2021 Troponin I.cardiac [Mass/Vol] 0.01 ng/mL Normal 0.00-0.04 [facility] Comment on above: Result Comment: REFE RENCE RANGES: 0.00 - 0.04 ng/ml NORMAL 0.05 - 0.50 ng/ml INDETERMINATE > 0.50 ng/ml CONSISTENT WITH AN M.I. Performed By: #### 8 [id number] #### [facility] [address] [place] [address], [facility] URINALYSISon 11-20-2021 Appearance (U) CLEAR Normal CLEAR [facility] Comment on above: Order Comment: Yes: Add to Previous draw if able Performed By: #### 1 0008 #### [facility] [address] [place] [address], [facility] Bilirubin Ql (U) Negative Normal NEGATIVE [facility] Comment on above: Order Comment: Yes: Add to Previous draw if able Performed By: #### 1 0008 #### [facility] [address] [place] [address], [facility] Color (U) YELLOW Normal YELLOW [facility] Comment on above: Order Comment: Yes: Add to Previous draw if able Performed By: #### 1 0008 #### [facility] [address] [place] [address], [facility] EPIS NONE SEEN Normal FEW,OCC,NONE SEEN [facility] Comment on above: Order Comment: Yes: Add to Previous draw if able Performed By: #### 1 0008 #### [facility] [address] [place] [address], [facility] Glucose Ql (U) >=1000 Abnormal NEGATIVE [facility] Comment on above: Order Comment: Yes: Add to Previous draw if able Performed By: #### 1 0008 #### [facility] [address] [place] [address], [facility] Hemoglobin Ql (U) SMALL Abnormal NEGATIVE The [facility] Comment on above: Order Comment: Yes: Add to Previous draw if able Performed By: #### 1 0008 #### [facility] [address] [place] [address], [place] KETONE Negative Normal NEGATIVE [facility] Comment on above: Order Comment: Yes: Add to Previous draw if able Performed By: #### 1 0008 #### [facility] [address] [place] [address], [place] LEUK DORIS Negative Normal NEGATIVE [facility] Comment on above: Order Comment: Yes: Add to Previous draw if able Performed By: #### 1 0008 #### [facility] [address] [place] [address], [place] MUCUS THREADS OCC Abnormal NONE SEEN The [facility] Comment on above: Order Comment: Yes: Add to Previous draw if able Performed By: #### 1 0008 #### [facility] [address] [place] [address], [place] Nitrite Ql (U) Negative Normal NEGATIVE [facility] Comment on above: Order Comment: Yes: Add to Previous draw if able Performed By: #### 1 0008 #### [facility] [address] [facility]. [address] pH (U) 6.0 [pH] Normal 5.0-8.0 [facility] Comment on above: Order Comment: Yes: Add to Previous draw if able Performed By: #### 1 0008 #### [facility] [address] [place] [place] [address], [facility] Protein Ql (U) 30 Abnormal NEGATIVE [facility] Comment on above: Order Comment: Yes: Add to Previous draw if able Performed By: #### 1 0008 #### [facility] [address] [place] [place] [address], [facility] RBC 0-2 Abnormal NONE SEEN The [facility] Comment on above: Order Comment: Yes: Add to Previous draw if able Performed By: #### 1 0008 #### [facility] [address] [facility] [place] [address], [facility] SPEC GRAV 1.015 Normal 1.015-1.020 [facility] Comment on above: Order Comment: Yes: Add to Previous draw if able Performed By: #### 1 0008 #### [facility] [address] [facility] [place] [address], [facility] WBC UA 0-2 Abnormal NONE SEEN The [facility] Comment on above: Order Comment: Yes: Add to Previous draw if able Performed By: #### 1 0008 #### [facility] [address] [place] [address], [facility] XR CHEST 1 Von 11-20-2021 XR CHEST [...] by: AMARA DAVISON Date: 2021-11-20 17:47 Normal [facility] ECHOCARDIO M/2D COMPLETEon 0 10-02-2021 ECHOCARDIO M/2D COMPLETE Patient: RAQUEL VILA Exam Date: 10/02/2021 : 1965 Gender:F Ordering : DR KATHERYN NIXON M.D. Admission #: [id number] Family : SHAIKH Silvino JACQUES . Order #: [id number] CLICK HERE TO VIEW EXAM ECHOCARDIOGRAM REPORT [...] Nixon M.D. on 10/03/2021 at 18:42 Normal [facility] HEAD_NECKon 09-17-2021 [facility] HEAD_NECK EXAM: US HEAD_NEC K HISTORY: Mass of head , [...] by: AMARA DAVISON Date: 2021-09-17 09:22 Normal [facility] US THYROIDon 09-17-2021 US THYROID EXAMINATION: US [...] one year is recommended. TR 4: The [employer] TI-RADS committee's white paper recommendations for thyroid lesions classified as TR4 (moderately suspicious) are listed below: > 1.0 cm. Follow-up ultrasound in 1, 2, 3, and 5 years. > 1.5 cm. FNA. J. Am Alfonso Radiol 2017;14:587-595. Electronically authenticated by: AMARA DAVISON Date: 2021-09-17 09:29 Normal [facility] Vital Signs Date Time Vital Sign Value Performing Clinician Facility 10-15-2023 15:34-0400 Body height 162.56 cm [facility] 10-15-2023 15:34-0400 Body mass index (BMI) [Ratio] 39.6 kg/m2 [facility] 10-15-2023 15:34-0400 Body temperature 97.8 [degF] [facility] 10-15-2023 15:34-0400 Body weight 104.83 kg [facility] 10-15-2023 15:34-0400 Diastolic blood pressure 71 mm[Hg] [facility] 10-15-2023 15:34-0400 Heart rate 85 /min [facility] 10-15-2023 15:34-0400 Respiratory rate 18 /min [facility] 10-15-2023 15:34-0400 SaO2% (BldA) [Mass fraction] 96 % [facility] 10-15-2023 15:34-0400 Systolic blood pressure 135 mm[Hg] [facility] 02-08-2022 15:00-0400 Body height 165.1 cm Margarita Truman Other [facility] Other 02-08-2022 15:00-0400 Body mass index (BMI) [Ratio] 42.66 kg/m2 Margarita Truman Other [facility] Other 02-08-2022 15:00-0400 Body temperature 96.6 [degF] Margarita Truman Other [facility] Other 02-08-2022 15:00-0400 Body weight 116.3 kg Margarita Truman Other [facility] Other 02-08-2022 15:00-0400 Diastolic blood pressure 76 mm[Hg] Margarita Truman Other [facility] Other 02-08-2022 15:00-0400 Respiratory rate 18 /min Margarita Truman Other [facility] Other 02-08-2022 15:00-0400 SaO2% (BldA) [Mass fraction] 96 % Margarita Truman Other [facility] Other 02-08-2022 15:00-0400 Systolic blood pressure 114 mm[Hg] Margarita Truman Other [facility] Other 12-06-2021 12:35-0400 Body height 165.1 cm Isaias Gomez Other [facility] Other 12-06-2021 12:35-0400 Body mass index (BMI) [Ratio] 43.26 kg/m2 Isaias Gomez Other [facility] Other 12-06-2021 12:35-0400 Body temperature 97.3 [degF] Isaias Gomez Other [facility] Other 12-06-2021 12:35-0400 Body weight 117.94 kg Isaias Gomez Other [facility] Other 12-06-2021 12:35-0400 Respiratory rate 18 /min Isaias Gomez Other [facility] Other 12-06-2021 12:35-0400 SaO2% (BldA) [Mass fraction] 93 % sIaias Gomez Other [facility] Other 10-10-2021 14:05-0400 Blood Pressure Location Nalini LANDERS [facility] [place] 10-10-2021 14:05-0400 Diastolic blood pressure 78 mm[Hg] Nalini LANDERS [facility] [place] 10-10-2021 14:05-0400 Heart rate 72 /min Nalini JULIENL [facility] [place] 10-10-2021 14:05-0400 Respiratory rate 16 /min Nalini JULIENL [facility] [place] 10-10-2021 14:05-0400 Systolic blood pressure 120 mm[Hg] Nalini JULIENL [facility] [place] 08-08-2021 16:00-0400 Body height 165.1 cm Margarita Truman Other [facility] Other 08-08-2021 16:00-0400 Body mass index (BMI) [Ratio] 48.89 kg/m2 Margarita Truman Other [facility] Other 08-08-2021 16:00-0400 Body temperature 97.8 [degF] Margarita Truman Other [facility] Other 08-08-2021 16:00-0400 Body weight 133.27 kg Margarita Truman Other [facility] Other 08-08-2021 16:00-0400 Diastolic blood pressure 78 mm[Hg] Margarita Truman Other [facility] Other 08-08-2021 16:00-0400 Respiratory rate 18 /min Margarita Truman Other [facility] Other 08-08-2021 16:00-0400 SaO2% (BldA) [Mass fraction] 95 % Margarita Truman Other [facility] Other 08-08-2021 16:00-0400 Systolic blood pressure 122 mm[Hg] Margarita Pino Other [facility] Other Encounters Encounter Date Encounter Type Care Provider Facility Start: 10-18-2023 End: 10-18-2023 ambulatory [facility] Start: 10-15-2023 End: 10-15-2023 ambulatory [facility] Work Phone: Start: 10-15-2023 End: 10-15-2023 Patient encounter procedure [facility] Work Phone: Start: 10-08-2023 End: 10-08-2023 ambulatory [facility] Not Available Start: 10-01-2023 End: 10-01-2023 ambulatory [facility] Start: 09-13-2023 ambulatory [facility] Start: 09-09-2023 End: 09-09-2023 ambulatory [facility] Not Available Start: 08-19-2023 End: 08-19-2023 ambulatory [facility] Not Available Start: 08-12-2023 End: 08-12-2023 ambulatory [facility] Not Available Start: 07-29-2023 ambulatory [facility] Start: 07-25-2023 End: 07-25-2023 ambulatory [facility] Start: 06-13-2023 End: 06-13-[address] [place] [address] Start: 05-30-2023 End: 05-30-2023 ambulatory [facility] Start: 05-24-2023 End: 05-24-[address] [facility] Start: 05-07-2023 End: 05-07-2023 ambulatory [facility] Not Available Start: 04-25-2023 End: 04-25-2023 ambulatory JANIA GUTIERREZ [facility] Start: 12-07-2022 End: 12-07-[address] [facility] Start: 11-01-2022 ambulatory Nalini LANDERS Facility:[facility] Start: 08-07-2022 End: 08-08-2022 ambulatory MARGARITA TRUMAN Facility:[facility] Start: 06-14-2022 End: 06-14-2022 ambulatory Margarita Truman Other [facility] Other Start: 06-14-2022 Telephone encounter Margarita Truman [facility] Start: 05-31-2022 End: 05-31-2022 ambulatory Giovana Crum Other [employer] [employer] Other Start: 05-31-2022 Telephone encounter Giovana Crum [facility] Start: 03-23-2022 End: 03-31-2022 ambulatory SHAIKH Ashley JACQUES Facility:[facility] Start: 02-14-2022 End: 02-15-[address] DOCTOR SHAHID Facility:[facility] Start: 02-08-2022 End: 02-08-2022 ambulatory Margarita Truman Other [facility] Other Start: 02-08-2022 Office outpatient visit 25 minutes Margarita Truman [facility] Start: 01-31-2022 End: 02-01-2022 ambulatory MARGARITA TRUMAN Facility:[facility] Start: 01-10-2022 End: 01-11-2022 ambulatory Nalini LANDERS Facility:[facility] Start: 01-10-2022 End: 01-10-2022 Patient encounter procedure Nalini LANDERS General Surgery Shaheed/Maricruz Quintero Start: 12-27-2021 End: 12-28-[address] NALINI LANDERS . Facility:[facility] Start: 12-06-2021 End: 12-06-2021 ambulatory Isaias Gomez Other [facility] Other Start: 12-06-2021 Office outpatient visit 15 minutes Isaias Gomez [facility] Start: 11-21-2021 End: 11-21-2021 ambulatory UNKNOWN PROVIDER Facility:[facility] Start: 11-20-2021 End: 11-24-2021 Evaluation and management of inpatient ERIC CONTE Facility:[facility] Start: 11-20-2021 End: 11-20-[address] AMARA DAVISON Facility: Start: 10-10-2021 End: 10-10-2021 Patient encounter procedure Nalini LANDERS General Surgery Nill/Maricruz Quinter[facility] Start: 10-02-2021 End: 10-03-[address] KATHERYN NIXON Facility:[facility] Start: 09-16-2021 End: 09-17-[address] AMARA DAVISON Facility: Start: 08-08-2021 End: 08-08-2021 ambulatory Margarita Truman Other [facility] [employer] Other Start: 08-08-2021 Office outpatient visit 25 minutes Margarita Truman [facility] Ne[facility] Procedures Date Procedure Procedure Detail Performing Clinician Start: 07-25-2023 Follow-up visit Follow-up JANIA Bassett MATT section Nalini NIL L Deviated nasal septu m (disorder) Nalini NILL Excision of cyst Nalini NIL L Excision of uvula Nalini NI LL Rotator cuff syndrom e (disorder) Nalini NILL Comment on above: right Tonsillectomy and adenoidectomy Nalini NILL Plan of Treatment Date Care Activity Detail Author Renal function 2000 panel - Serum or Plasma [facility] enter [facility] Immunizations Immunization Date Immunization Notes Care Provider Fa cility NEGATED: Highlighted row has not occurred!05-18-2020 influenza virus vaccine, unspecified formulation Nalini LANDERS General Surgery [place] Payers Date Payer Category Payer Unknown [id number] 2.16. [id number] 1965 Unknown [id number] 2.16.8 40.1.687522.3.579.2.647 1965 Unknown [id number] 2.16.84 0.1.469209.3.579.2.593 1965 Unknown [id number] 2.16.84 0.1.809945.3.579.2.593 1965 Unknown [id number] 2.16.84 0.1.889566.3.579.2.593 1965 Unknown [id number] 2.16.84 0.1.861787.3.579.2.593 1965 Unknown [id number] 2.16.84 0.1.294907.3.579.2.593 1965 Unknown [id number] 2.16.84 0.1.273378.3.579.2.593 1965 Unknown [id number] 2.16.84 0.1.849313.3.579.2.593 1965 Unknown [id number] 2.16.84 0.1.780706.3.579.2.593 1965 Unknown [id number] 2.16.8 40.1.789083.3.579.2.727 1965 Unknown [id number] 2.16.8 40.1.317792.3.579.2.727 1965 Unknown [id number] 2.16.8 40.1.029738.3.579.2.1286 1965 Unknown [id number] 2.16.8 40.1.895659.3.579.2.1286 1965 Unknown [id number] 2.16.8 40.1.180926.3.579.2.1285 1965 Unknown [id number] 2.16.8 40.1.469086.3.579.2.1285 1965 Unknown [id number] 2.16.8 40.1.685625.3.579.2.1285 1965 Unknown [id number] 2.16.84 0.1.454137.3.579.2.9 1965 Unknown [id number] 2.16.84 0.1.810497.3.579.2.9 1965 Unknown [id number] 2.16.84 0.1.681295.3.579.2.1258 1965 Unknown [id number] 2.16.84 0.1.283366.3.579.2.9 1965 Unknown [id number] 2.16.84 0.1.589480.3.579.2.9 1965 Unknown [id number] 2.16.8 40.1.427403.3.579.2.1285 1965 Unknown [id number] 2.16.8 40.1.528569.3.579.2.1285 1965 Unknown [id number] 2.16.8 40.1.302518.3.579.2.1285 1965 Unknown [id number] 2.16.8 40.1.823707.3.579.2.1285 1965 Unknown [id number] 2.16.84 0.1.701979.3.579.2.1286 1959 Medicaid [id number] 1959 Unknown [id number] Self-pay Self Pay [id number] Unknown [id number] 2.16.840.1.859294.19 Unknown [id number] Social History Date Type Detail Facility Start: 10-10-2021 End: 10-15-2023 Tobacco smoking status Ex-smoker (finding) [facility] [employer] Other Tobacco smoking status Never Gener al Surgery [facility] Sex Assigned At Female [place] [facility] [employer] Other Start: 1965 Sex Assigned At Female [facility] Functional Status Date Assessment Result Facility 10-10-2021 Functional Status N/A General Toro ebenezer [facility] Clinical Notes 08-08-2021 to 05-24-2023 Note Date & Type Note Facility 05-24-2023 Note [facility] Subjective Raquel Vila is a [...] exertion. No robbi (more content not included)... [facility] 12-07-2022 Note [facility] Subjective Raquel Vila is a [...] seen. Grade I: (more content not included)... [facility] 02-08-2022 Evaluation note Encounter Date Diagnosis Assessment [...] diuresis. Advised her to adequately hydrate herself. [employer] [employer] Other 09-07-2022 NoteOPERATIVE NOTE OPERATION DATE: 12/27/2021 [...] problems or questions. CC: Shaikh Ambar M.D.[facility] [id number] Evaluation note* Encounter Date Diagnosis Assessment Notes [...] days. She understands and agrees with plan. [employer] [employer] Other 08-05-2022 NoteMR#: [id number] I [facility] Pt. Name: Raquel Vila Admitted: 11/20/2021 Discharged: [...] initially transcutaneously paced and sent to the [facility] for further management. The patient was intubated and mechanically ventilated prior to her transfer to [facility]. The patient was admitted to the medical [...] Conte MD Date Trans: 11/24/2021 04:50 P/jenny [id number] cc: Lisbeth Grace M.D. [address] [place] [id number] Evaluation note* Encounter Date Diagnosis Assessment Notes [...] Will prescribe allopurinol if she gets symptoms. [employer] Other Evaluation + Plan note No data available for this section General Surgery [place] Evaluation noteNo InformationNort [employer] Other Evaluation note* Diagnosis Onset Date Resolution Status CKD (chronic kidney disease) stage 3, GFR 30-59 ml/min acute [id number] acute Hyperuricemia acute Iron deficiency acute Type 2 diabetes mellitus wit h diabetic chronic kidney disease acute Vitamin D deficiency acute [facility] Work Phone: [facility] general Narrative - Reported* Type Description Date [...] PNEUMONIA, BLOOD CLOT IN THE LUNG 07/2020 [employer] Other [facility] general Narrative - Reported* Type Description Date [...] REACTION MIXING MET OPROLOL AND LEXAPRO 11/2021 [employer] Other [facility] general Narrative - Reported* Type Description Date Medical History 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 Medical History HYPERTENSION Medical History VITAMIN D DEFICIENCY Medical History MIXED HYPERLIPIDEMIA Medical History PNEUMONIA, PULMONARY EDEMA, O2 LOW FOUND A CLOT IN LUNG [facility] UNRESPONSIVE AND LOW HEART RATE Surgical History 1 Surgical History NASAL SURGERY Surgical History TONSIL ADNOIDS REMOVED Surgical History RIGHT ROTATOR CUFF Surgical History CYST REMOVED FROM SCALP AREA Hospitalization History SEE ABOVE Hospitalization History ABLASION FOR HEART X5 DA Y [facility] Hospitalization History PNEUMONIA, BLOOD CLOT IN THE LUNG 07/2020 Hospitalization History DRUG REACTION MIXING MET OPROLOL AND LEXAPRO 11/2021 [facility] Other Hospital Discharge instructions No data available for this section General Surgery [place] Progress note No data available for this section General Surgery [place] Summary Purpose Family History No Family History Records Found Relationship Condition Age at Onset Recorded Date/T margarita daughter Family history of mental disorder Unknown father Unknown mother Malignant neoplasm Unknown Hypertension Unknown Diabetes mellitus Unknown son Family history of mental disorder Unknown sister Malignant neoplasm Unknown Multiple sclerosis Unknown Advance Directives No Advanced Directives Records Found Advance Directive Response Recorded Date/ Time Advance Directives Yes October 14 3:18pm Chief Complaint and Reason for Visit Chief Complaint RENAL F/U Reason for Visit CKD (chronic kidney disease) stage 3, GFR 30-59 ml/min [id number] Hyperuricemia Iron deficiency Type 2 diabetes mellitus with diabetic chronic kidney disease Vitamin D deficiency Additional Source Comments Care Team (unrecognized sect ion and content) Team Status: Active Member Role Status Dates Shaikh Ambar MD Primary Care Provider Active Team Status: Inactive Member Role Status Dates Shaikh Ambar MD Primary Care Provider Active Start: October 15, 2023 End: October 15, 2023 Margarita Pino MD Attending Provider Active Start : October 15, 2023 End: October 15, 2023 REASON FOR VISIT (unrecogniz ed section and content) CKDGRAY LEW FOCUS, COUGH, C ONGESTION, DIZZINESS, H/A, SINUS DRAINAGE,CKD and HTNREFILLREFILL INFORMATION SOURCE (unrecogn ized section and content) DATE CREATED AUTHOR 11/22/2021 [facility] DATE CREATED AUTHOR AUTHOR'S ORGANIZ ATION 12/01/2021 [facility] DATE CREATED AUTHOR AUTHOR'S ORGANIZ ATION 09/05/2022 [facility] DATE CREATED AUTHOR AUTHOR'S ORGANIZ ATION 11/02/2022 [facility] DATE CREATED AUTHOR AUTHOR'S ORGANIZ ATION 10/01/2023 [facility] DATE CREATED AUTHOR AUTHOR'S ORGANIZ ATION 10/09/2023 [facility] DATE CREATED AUTHOR AUTHOR'S ORGANIZ ATION 10/11/2023 [facility] DATE CREATED AUTHOR AUTHOR'S ORGANIZ ATION 10/20/2023 [facility] Goals (unrecognized section and content) Goals may be documented in a n alternate section FOR RECORDS PERTAINING TO PATIENTS WHO ARE [...] BE BASED ON THE PRIMARY CLINICAL RECORDS. [facility]. provides no warranty or guarantee of the accuracy or completeness of information in this document.
--- NOTE | 2024-01-13 09:48 | CA_ITS ---
Patient Name: RAQUEL MAURICE MR#: [id number] : 1965 Exam Date: 01/13/2024 Ordering Doctor: DR KATHERYN NIXON M.D. ECHOCARDIOGRAM REPORT PROCEDURE: CA ECHO DOPPLER COMPLETE INDICATIONS: Hypertrophic Cardiomyopathy COMPARISON: None. DESCRIPTION: COMPLETE ECHOCARDIOGRAM Real-time transthoracic echocardiography with 2D, M-mode, spectral and color flow Doppler performed. QUALITY: Technical quality was good. LEFT VENTRICLE: Normal chamber size. Normal left ventricular wall thickness. LV EF: Global left ventricular systolic function is hyperdynamic; visually estimated ejection fraction is 70-75%. Elevated velocity and gradient across the left ventricle 3.4 m/sec, 45mmHg. This is likely due to hyperdynamic left ventricular systolic function. DIASTOLIC: Normal diastolic function. ATRIAL SEPTUM: Not adequately assessed. LEFT ATRIUM: Normal chamber size. RIGHT ATRIUM: Normal chamber size. RIGHT VENTRICLE: Normal chamber size. Normal right ventricular systolic function. TRICUSPID VALVE: Normal mobility and thickness. Mild regurgitation. Mild pulmonary hypertension. RVSP 35mmHg MITRAL VALVE: Normal mobility and thickness. No evidence of mitral valve stenosis. Mild mitral annular calcification. Trivial mitral regurgitation. AORTIC VALVE: Normal trileaflet appearance. Mildly calcified aortic valve. Normal leaflet mobility. No evidence of aortic valve stenosis. Mild aortic regurgitation. AORTIC ROOT: Normal diameter and appearance. PULMONIC VALVE: Normal thickness and mobility. No stenosis. Trivial regurgitation. PERICARDIUM: Anterior free space seen; trivial effusion vs pericardial fat pad. IVC: Collapses with inspirations. Normal size CONCLUSION: 1. Global left ventricular systolic function is hyperdynamic; visually estimated ejection fraction is 70-75% 2. Normal left ventricular wall thickness 3. Normal chamber size and right ventricular systolic function 4. Mild tricuspid regurgitation 5. Mild pulmonary hypertension; RVSP 35mmHg 6. Mild aortic regurgitation 7. Anterior free space seen; trivial effusion vs pericardial fat pad Adult Echocardiography Procedure Report Left Ventricle LVEDD (3.7 - 5.6 cm): 4.54 cm LVESD (2.2 - 4.0 cm): 2.64 cm LVIVS thickness (0.6 - 1.2 cm): 0.94 cm LVPW thickness (0.5 - 1.0 cm): 0.79 cm e': 0.09 m/s E - e': 7.53 LVOT Max Gradient: 10.67 mm[Hg] LVOT Area (cm2): 1.63 m/s Peak Velocity (LVOT): 1.63 m/s Mean Velocity (LVOT): 1.16 m/s LVOT Diameter 1.86 cm Left Ventricular Ejection Fraction: 61.92 % Left Atrium LA Volume Index (2D A2C): 28.64 ml/m2 Left Atrium Systolic Dimension: 4.90 cm Mitral Valve MV E to A Ratio: 0.74 Mitral Valve A-Wave Peak Velocity: 0.94 m/s Mitral Valve E-Wave Peak Velocity: 0.70 m/s Right Ventricle RV Internal Diastolic Dimension: 3.42 cm Aorta AO Root Diam: 2.52 cm Ascending Ao Diam: 3.30 cm Aortic Valve AoV Area (Peak Rafael): 1.96 cm2, 1.99 cm2 AoV Area (VTI): 1.74 cm2, 1.74 cm2 Peak Velocity(Antegrade Flow): 2.23 m/s, 2.31 m/s Peak Gradient(Antegrade Flow): 19.94 mm[Hg], 21.38 mm[Hg] Mean Velocity(Antegrade Flow): 1.57 m/s, 1.60 m/s Mean Gradient(Antegrade Flow): 11.46 mm[Hg], 11.90 mm[Hg] Velocity Time Integral: 48.78 cm, 48.58 cm Tricuspid Valve Peak Velocity (Regurgitant Flow): 2.83 m/s, 2.59 m/s, 2.82 m/s Pulmonic Valve Mean Gradient: 3.63 mm[Hg], 2.78 mm[Hg], 3.07 mm[Hg] Mean Velocity: 0.91 m/s, 0.76 m/s, 0.81 m/s Peak Velocity: 1.23 m/s Peak Gradient: 6.74 mm[Hg], 5.85 mm[Hg], 5.69 mm[Hg] Right Atrium Right Atrium Systolic Pressure: 29.67 ml, 29.67 ml Dictated by: Robret Tam M.D. on 01/16/2024 at 16:13 Approved by: Robert Tam M.D. on 01/16/2024 at 16:33
--- OUTSIDE RECORDS SUMMARY | 2024-01-13 09:49 | XMS_ITS | CCD ---
Author Organization [facility] Care Team Providers Care Paleology Professor Name Role Phone Lisbeth Grace Primary Care [...] FAWWAD, TILLMAN H Primary Care Unavailable JUAN PABLOEBDR AMARA ARREDONDO Consulting Unavailable FAWWAD, TILLMNA H Admitting Unavailable FAWWAD, TILLMAN H Attending [...] Care Unavailable DR AMARA DAVISON Consulting Unavailable BRITTNEY HEWITT Admitting Unavailable FAWWAD, TILLMAN H Primary Care Unavailable JUAN CARLOS ., BRITTNEY Attending Unavailable JUAN CARLOS Tripathi, BRITTNEY Consulting Unavailable NILL ., DR GAYLE Admitting Unavailable NILL ., DR GAYLE Attending Unavailable NILL ., DR GAYLE Consulting Unavailable FAWWAD, TILLMAN H Primary Care Unavailable MAJO SRIVASTAVA Consulting Unavailable NILLNalini Attending Unavailable NILLNalini Attending Unavailable MOUKARBELKATHERYN Attending Unavailable MOUKARBELKATHERYN Attending Unavailable FAWWAD, TILLMAN Attending Unavailable FAWWAD, TILLMAN Attending Unavailable FAWWAD, TILLMAN Attending Unavailable FAWWAD, TILLMAN Attending Unavailable FAWWAD, TILLMAN Attending Unavailable THAO ABEBE Attending Unavailabl e FAWWAD, TILLMAN Referring Unavailable FAWWAD, TILLMAN Primary Care Unavailable FAWWAD, TILLMAN Referring Unavailable FAWWAD, [facility] Primary Care Unavailable FAWWAD, TILLMAN Referring Unavailable FAWWAD, [facility] Primary Care Unavailable FAWWAD, TILLMAN Referring Unavailable FAWWAD, [facility] Primary Care Unavailable RIKKI MILTON Attending Unavailable FAWWAD, TILLMAN Referring Unavailable FAWWAD, [facility] Primary Care Unavailable RIKKI MILTON Attending Unavailable FAWWAD, TILLMAN Referring Unavailable FAWWAD, [facility] Primary Care Unavailable RIKKI MILTON Attending Unavailable FAWWAD, TILLMAN Referring Unavailable ABEBE, THAO N Primary Care Unavaila JANIA Larsen Attending Unavailable FAWWAD, TILLMAN Referring Unavailable FAWWAD, [facility] Primary Care Unavailable JANIA GUTIERREZ Attending Unavailable FAWWAD, TILLMAN Referring Unavailable FAWWAD, TILLMAN Primary Care Unavailable JANIA GUTIERREZ Attending Unavailable FAWWAD, TILLMAN Referring Unavailable FAWWAD, TILLMAN Primary Care Unavailable JANIA GUTIERREZ Attending Unavailable FAWWAD, TILLMAN Referring Unavailable FAWWAD, TILLMAN Primary Care Unavailable JANIA GUTIERREZ Attending Unavailable FAWWAD, TILLMAN Referring Unavailable ABEBE, THAO N Primary Care Unavaila JANIA Larsen Attending Unavailable FAWWAD, TILLMAN Referring Unavailable SHAIKH JACQUES Primary Care Unavailable [address] [place] [address], CUT OFF Referring Unavailable SHAIKH JACQUES Primary Care Unavailable Allergies Allergy Classification Reported Allergen(s) Allergy Type Date of Onset Reaction(s) Facility (1 source) No Known Medication Allergies; Translations: [No Known Medication Allergies] Propensity to adverse reactions (disorder) [facility] Repository (2 sources) NSAIDs; Translations: [NSAIDS (NON-STEROIDAL ANTI-INFLAMMATOR Y DRUG)] Propensity to adverse reactions to drug (disorder) [facility] Repository Medications Current Medications Medication Drug Class(es) Dates Sig (Normalized) Sig (Original) 8 hr acetaminophen 650 mg extended release oral tablet (4 sources) Start: 10-15-2023 take 1950 mg by mouth every twelve hours Acetaminophen Active 1950 MG PO Every 12 hours October 15, 2023 12:00am take 2 tablets by mo uth every eight hours as needed Acetaminophen ER [...] 2023 12:00am take 1 tablet by bryan every twelve hours Carvedilol 3.125 MG 1 tablet with food Orally Twice a day Active Carvedilol Activ e cholecalciferol 1.25 mg oral capsule (1 source) Vitamin D Start: 10-15-2023 take 53307 [IU] by mouth every week Cholecalciferol (Vitamin D3) Active 51513 UNIT PO every week October 15, 2023 [...] Start: 09-26-2021 take 2 tablets by mo [facility] once daily Farxiga 5 mg oral tablet 10 mg = 2 tab(s), Oral, Daily, Refills(s) 0 Start Date: 09/26/21 Status: Ordered take 1 tablet by bryan every twenty-four hours Farxiga 10 MG 1 [...] by mouth every week Ergocalciferol 1.25 MG (17852 UT) 1 capsule Orally Q week for 90 day(s) Jul, Active escitalopram 20 mg oral tablet (8 sources) Serotonin Reuptake Inhibitor Start: 10-15-2023 take 20 mg by mouth once daily Escitalopram Oxalate Active 20 MG PO Daily October 15, 2023 12:00am Start: 09-26-2021 take 1 tablet by bryan once daily Lexapro 20 mg Tab 20 [...] Start: 05-04-2020 take 2 tablets by mo uth once daily Lasix 40 mg Tab 80 [...] daily Lisinopril Active 2.5 MG PO Daily October 15, 2023 12:00am Start: 08-08-2021 take [...] Start: 09-26-2021 take 1 tablet by bryan once daily magnesium oxide 400 mg Tab [...] Start: 05-04-2020 take 1 tablet by bryan once daily Metoprolol succinate 100 mg ER Tablet = 1 tab(s), Oral, Daily, Refills(s) 0 Start Date: 05/04/20 Status: Ordered omeprazole 20 mg delayed release oral capsule (8 sources) Proton Pump Inhibitor Start: 10-15-2023 take 20 mg by mouth once daily Omeprazole Active 20 MG PO Daily October 15, 2023 12:00am Start: 10-10-2021 take 1 capsule by mo [facility] once daily omeprazole 20 mg Cap-DR 20 mg = 1 cap(s), Oral, Daily, Refills(s) 0 Start Date: 10/10/21 Status: Ordered pramipexole dihydrochloride 1 mg oral tablet (8 sources) Nonergot Dopamine Agonist Start: 10-15-2023 take 1 mg by mouth once daily at bedtime Pramipexole Active 1 MG PO Daily at bedtime October 15, 2023 12:00am Start: 05-04-2020 take 1 tablet by bryan at bedtime pramipexole 1 mg Tab 1 [...] Body mass index 40+ - severely obese 06-21-2022 Chronic Other nutritional; endocrine; and metabolic disorders [...] sources) Insomnia 05-04-2020 Episodic Residual codes; unclassified (1 source) Pain [...] sources) Chronic low back pain 05-04-2020 Episodic Sprains and strains (1 source) Strain of muscle(s) and tendon(s) of the rotator cuff of left shoulder, subsequent encounter; Translations: [Strain of muscle(s) and tendon(s) of the rotator cuff of left shoulder, subsequent encounter] Onset: 4 Episodic Substance-related disorders (3 sources) Smoker; Translations: [Nicotine dependence, cigarettes, uncomplicated] Onset: 2 05-04-2020 Chronic Thyroid disorders (5 sources) Hyperthyroidism; Translations: [Thyroid colloid nodule ] Onset: 2 09-26-2021 Chronic Unclassified (1 source) CHRN KIDNEY DISEASE STG 3 UNSP; Translations: [CHRN KIDNEY DISEASE STG 3 UNSP] Onset: 3 Unclassified (1 source) CONTACT W/AND (SUSP) EXPOS COVID-19; Translations: [CONTACT W/AND (SUSP) EXPOS COVID-19] Onset: 2 Unclassified (1 source) Post-op Onset: 4 Varicose veins of lower extremity (2 sources) [...] Episodic Other aftercare (1 source) Other terminal worker (current) drug therapy; Translations: [OTH ARC AND GAS WELDER CURRENT DRUG THERAPY] Onset: 01-04-2022 Episodic Other aftercare (1 source) group home (current) use of aspirin; Translations: [LONGTERM CURRENT USE OF ASPIRIN] Onset: 01-04-2022 Episodic Other aftercare (1 source) 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; Translations: [LONGTERM CURRENT USE OF INSULIN] Onset: 01-04-2022 Episodic Other aftercare (1 source) 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; Translations: [LONGTERM CURRNT USE ANTICOAGULANTS] Onset: 11-22-2021 Episodic Other [...] sources) Pilar cyst; Translations: [PILAR CYST] Onset: 09-07-2022 Episodic Other skin disorders (4 sources) Localized [...] UNS] Onset: 03-13-2022 Episodic Residual codes; unclassified (2 sources) Pain, unspecified; Translations: [PAIN UNSPECIFIED] Onset: 01-04-2022 Episodic Residual codes; unclassified (1 source) Transient alteration of awareness; Translations: [TRANSIENT ALTERATION OF AWARENESS] Onset: 11-22-2021 Episodic Shock (1 source) Cardiogenic shock; Translations: [CARDIOGENIC SHOCK] Onset: 11-22-2021 Episodic Unclassified (2 sources) Drug therapy finding 10-10-2021 Results Test Name Value Interpretation Reference Range Facility 36on 10-10-2023 [address] Milton's office. [facility] [address] Dr[address] Milton from [facility] is requesting clearance for shoulder arthroscopy scheduled for 10/31/2023. Please advise. Thanks. [facility] HBV surface Ab IA Qnon 06-13 Anti HBs quant. <8.00 Normal [facility] Comment on above: Result Comment: Vacc inated: >=12mIU/mL, Positive (Immune) Unvaccinated: <8mIU/mL, Negative (Not Immune) 8-11.99 mIU/mL: Indeterminate, (Considered Not Immune) Performed By: #### 8 014-3, 6476-6, 79902-5, 91442-2, 5193-8 #### [facility] ([id number]) [address] [place] [address], [address] [place] [address] MeV IgG IA Ql (S)on 06-13-19 24 RUBEOLA AB SCREEN 2.2 AI High <0.9 [facility] Comment on above: Result Comment: POSI TIVE: Antibody(IgG) detected. Indicates previous exposure to rubeola virus and immunity. Performed By: #### 8 014-3, 6476-6, 20470-0, 92700-7, 5193-8 #### [facility] ([id number]) [address], [address] [place] [address] MuV IgG IA Ql (S)on 06-13-19 24 MUMPS VIRUS IgG 4.0 AI High <0.9 [facility] Comment on above: Result Comment: Interpretation-------- <0.9 Negative 0.9 - 1.0 Equivocal >1.0 Positive Performed By: #### 8 014-3, 6476-6, 14200-1, 99661-1, 5193-8 #### [facility] ([id number]) [address], [address] [place] [address] Rubella virus IgG Qn (S)on 0 06-13-2023 RUBELLA IgG 104 IU/mL Normal [facility] Comment on above: Result Comment: Interpretation-------- <8 NEGATIVE-considered Not Immune 8-9 EQUIVOCAL-consider retesting with new specimen >9 POSITIVE-considered Immune Performed By: #### 8 014-3, 6476-6, 67873-1, 86715-7, 5193-8 #### [facility] ([id number]) [address], [address] [place] [address] VZV IgG IA Ql (S)on 06-13-19 24 VARICELLA IgG 1.6 AI High <0.9 [facility] Comment on above: Result Comment: Interpretation-------- <0.9 Negative 0.9 - 1.0 Equivocal >1.0 Positive Performed By: #### 8 014-3, 6476-6, 74307-2, 13527-8, 5193-8 #### [facility] ([id number]) [address] [place] [address], [address] [place] [address] Office Visiton 05-24-2023 Follow-up visit [id number] Jessica Vila Wendy 1965 Provider Department Center 05/24/2023 KATHERYN MARTINEZ Family History Problem Relation Age of Onset Breast cancer Mother Family Status - Relation Status Age at Mother Level of Service:93861 OR OFFICE/OUTPATIENT ESTABLISHED MOD MDM 30 MIN Normal [facility] Office Visiton 12-07-2022 Follow-up visit [id number] Jessica Vila L 1965 F Date Provider Department Center 12/07/2022 KATHERYN MARTINEZ Family History Problem Relation Age of Onset Breast cancer Mother Family Status - Relation Status Age at Mother Level of Service:75365 OR OFFICE/OUTPATIENT ESTABLISHED LOW MDM 20-29 MIN Reason for Visit and Comments: Follow-up [142833] - 6 MONTH FOLLOW UP Normal [facility] PTH INTACTon 08-08-2022 PTH, Intact 34 pg/mL Normal 15-65 [facility] Comment on above: Performed By: #### C BCMAN #### [facility] [address] [address] [address] Kelsie Dominguez HEMOGRAM AND PLATELon 08-07 Hematocrit (Bld) [Volume fraction] 38.1 % Normal 36.0-48.0 [facility] Comment on above: Performed By: #### H H #### [facility] [address] [address] [address] Kelsie Dominguez Hemoglobin (Bld) [Mass/Vol] 12.5 g/dL Normal 12.0-16.0 [facility] Comment on above: Performed By: #### H H #### [facility] [address] [place] [address] Dr. Kelsie Dominguez MCH (RBC) [Entitic mass] 29.8 pg Normal 26.7-34.0 [facility] Comment on above: Performed By: #### H H #### [facility] [address] [place] [address] Dr. Kelsie Dominguez MCHC (RBC) [Mass/Vol] 32.8 g/dL Normal 29.9-35.2 [facility] Comment on above: Performed By: #### H H #### [facility] [address] [place] [address] Dr. Kelsie Dominguez MCV (RBC) [Entitic vol] 90.9 fL Normal 81.0-99.0 [facility] Comment on above: Performed By: #### H H #### [facility] [address] [place] [address] Dr. Kelsie Dominguez PLT 207 103/ul Normal 150-450 [facility] Comment on above: Performed By: #### H H #### [facility] [address] [place] [address] Dr. Kelsie Dominguez RBC 4.19 106/ul Critically low 4.20-5.40 [facility] Comment on above: Performed By: #### H H #### [facility] [address] [place] [address] Dr. Kelsie Dominguez WBC 5.1 103/ul Normal 4.0-11.0 [facility] Comment on above: Performed By: #### H H #### [facility] [address] [place] [address] Dr. Kelsie Dominguez MAGNESIUMon 08-07-2022 Magnesium [Mass/Vol] 1.9 mg/dL Normal 1.8-2.4 [facility] Comment on above: Performed By: #### H H #### [facility] [address] [place] [address] Dr. Kelsie Dominguez RENAL FUNCTION PANELon 08-07 Albumin [Mass/Vol] 3.0 g/dL Critically low 3.4-5.0 [facility] Comment on above: Performed By: #### H H #### [facility] [address] [address] [address] Kelsie Dominguez Calcium [Mass/Vol] 9.1 mg/dL Normal 8.5-10.1 [facility] Comment on above: Performed By: #### H H #### [facility] [address] [address] [address] Kelsie Dominguez Chloride [Moles/Vol] 103 mmol/L Normal 98-107 [facility] Comment on above: Performed By: #### H H #### [facility] [address] [address] [address] Kelsie Dominguez CO2 [Moles/Vol] 24.9 mmol/L Normal 21.0-32.0 [facility] Comment on above: Performed By: #### H H #### [facility] [address] [address] [address] Kelsie Dominguez Creatinine [Mass/Vol] 1.75 mg/dL Critically high 0.55-1.02 [facility] Comment on above: Performed By: #### H H #### [facility] [address] [place] [address] Dr. Kelsie Dominguez EGFR-AF FINNISH 36 mL/min/1.73m2 Critically low >=60 [facility] Comment on above: Performed By: #### H H #### [facility] [address] [address] [address] Kelsie Dominguez EGFR-NON AF FINNISH 30 mL/min/1.73m2 Critically low >=60 [facility] Comment on above: Performed By: #### H H #### [facility] [address] [address] [address] Kelsie Dominguez Glucose [Mass/Vol] 222 mg/dL Critically high 74-106 [facility] Comment on above: Performed By: #### H H #### [facility] [address] [place] [address] Dr. Kelsie Dominguez Phosphate [Mass/Vol] 3.6 mg/dL Normal 2.6-4.7 [facility] Comment on above: Performed By: #### H H #### [facility] [address] [place] [address] Dr. Kelsie Dominguez Potassium [Moles/Vol] 3.6 mmol/L Normal 3.5-5.1 [facility] Comment on above: Performed By: #### H H #### [facility] [address] [place] [address] Dr. Kelsie Dominguez Sodium [Moles/Vol] 141 mmol/L Normal 136-145 [facility] Comment on above: Performed By: #### H H #### [facility] [address] [place] [address] Dr. Kelsie Dominguez Urea nitrogen [Mass/Vol] 31.0 mg/dL Critically high 7.0-18.0 [facility] Comment on above: Performed By: #### H H #### [facility] [address] [place] [address] Dr. Kelsie Dominguez UA RANDOM W/MICROSCOPICon BACTERIA NONE SEEN Normal NONE SEEN [facility] Comment on above: Performed By: #### V ITAD #### [facility] [address] [place] [address] Dr. Kelsie Dominguez Bilirubin Ql (U) Negative Normal NEGATIVE [facility] Comment on above: Performed By: #### V ITAD #### [facility] [address] [place] [address] Dr. Kelsie Dominguez CAST NONE SEEN Normal NONE SEEN [facility] Comment on above: Performed By: #### V ITAD #### [facility] [address] [place] [address] Dr. Kelsie Dominguez Clarity (U) CLEAR Normal CLEAR [facility] Comment on above: Performed By: #### V ITAD #### [facility] [address] [place] [address] Dr. Kelsie Dominguez Color (U) LT. YELLOW Normal YELLOW [facility] Comment on above: Performed By: #### V ITAD #### [facility] [address] [place] [address] Dr. Kelsie Dominguez Crystals LM Nom (Urine sed) NONE SEEN Normal NONE SEEN [facility] Comment on above: Performed By: #### V ITAD #### [facility] [address] [place] [address] Dr. Kelsie Dominguez Epithelial cells LM Ql (Urine sed) RARE Normal NONE SEEN /RARE [facility] Comment on above: Performed By: #### V ITAD #### [facility] [address] [place] [address] Dr. Kelsie Dominguez Glucose Ql (U) 250 mg/dl Abnormal NEGATIVE [facility] Comment on above: Performed By: #### V ITAD #### [facility] [address] [place] [address] Dr. Kelsie Dominguez Hemoglobin Ql (U) SMALL Abnormal NEGATIVE [facility] Comment on above: Performed By: #### V ITAD #### [facility] [address] [place] [address] Dr. Kelsie Dominguez Ketones Ql (U) Negative Normal NEGATIVE [facility] Comment on above: Performed By: #### V ITAD #### [facility] [address] [place] [address] Dr. Kelsie Dominguez LEUKOCYTES TRACE Abnormal NEGATIVE [facility] Comment on above: Performed By: #### V ITAD #### [facility] [address] [place] [address] Dr. Kelsie Dominguez MUCOUS TRACE Abnormal NONE SEEN [facility] Comment on above: Performed By: #### V ITAD #### [facility] [address] [place] [address] Dr. Kelsie Dominguez Nitrite Ql (U) Negative Normal NEGATIVE [facility] Comment on above: Performed By: #### V ITAD #### [facility] [address] [place] [address] Dr. Kelsie Dominguez pH (U) 6.0 [pH] Normal 5-9 [facility] Comment on above: Performed By: #### V ITAD #### [facility] [address] [place] [address] Dr. Kelsie Dominguez RBC 5-10 Abnormal 0-2 [facility] Comment on above: Performed By: #### V ITAD #### [facility] [address] [place] [address] Dr. Kelsie Dominguez SPEC GRAVITY 1.010 Normal 1.005-<=1.02 5 [facility] Comment on above: Performed By: #### V ITAD #### [facility] [address] [place] [address] Dr. Kelsie Dominguez UA PROTEIN Negative Normal NEGATIVE/ TRACE [facility] Comment on above: Performed By: #### V ITAD #### [facility] [address] [place] [address] Dr. Kelsie Dominguez Urobilinogen Qn (U) 0.2 {Miguel'U}/dL Normal 0.2 - 1. 0 [facility] Comment on above: Performed By: #### V ITAD #### [facility] [address] [place] [address] Dr. Kelsie Dominguez WBC 10-20 Abnormal NONE SEEN [facility] Comment on above: Performed By: #### V ITAD #### [facility] [address] [place] [address] Dr. Kelsie Dominguez URIC ACID SERUMon 08-07-2022 Urate [Mass/Vol] 10.2 mg/dL Critically high 2.6-6.0 [facility] Comment on above: Performed By: #### H H #### [facility] [address] [place] [address] Dr. Kelsie Dominguez URINE T PROTEIN CREAT RATIOo n 08-07-2022 Protein (U) [Mass/Vol] 25.3 mg/dL Critically high <=12.0 [facility] Comment on above: Performed By: #### V ITAD #### [facility] [address] [place] [address] Dr. Kelsie Dominguez UR PROT CREAT RAT 0.[address] [facility] Comment on above: Performed By: #### V ITAD #### [facility] [address] [place] [address] Dr. Kelsie Dominguez URINE CREAT 121.04 mg/dL Normal 20.00-300.00 [facility] Comment on above: Performed By: #### V ITAD #### [facility] [address] [address] [address] Kelsie Dominguez VITAMIN D 25 OHon 08-07-2022 VIT D 25-OH 30.9 ng/mL Normal [facility] Comment on above: Performed By: #### V ITAD #### [facility] [address] [address] [address] Kelsie Dominguez VIT D RANGES SEE BELOW Normal [facility] Comment on above: Result Comment: <20 ng/mL Vit D deficient 20 - <30 ng/mL Vit D insufficient 30 - 100 ng/mL Vit D sufficient >100 ng/mL Potential Toxicity Performed By: #### V ITAD #### [facility] [address] [place] [address] Dr. Kelsie Dominguez MG MAMM SCREEN 3D AARON CADon 02-14-2022 MG MAMM SCREEN 3D AARON CAD Patient: RAQUEL VILA Exam Date: 02/14/2022 : 1965 Gender:F Ordering : DR. SHREYAS LONG M.D. Admission #: [id number] Family : Order #: [id number] CLICK HERE TO VIEW EXAM RADIOLOGY REPORT [...] unknown cancer at age 72. LOCATION: [facility] BREAST COMPOSITION: Scattered areas fibroglandular density. FINDINGS: [...] Dunn MD on 02/14/2022 at 11:22 Normal [facility] XR DEXA BONE DENSITYon 02-14 XR DEXA [...] by: AMARA DAVISON Date: 2022-02-14 21:14 Normal [facility] PTH INTACTon 02-02-2022 PTH, Intact 23 pg/mL Normal 15-65 [facility] Comment on above: Performed By: #### C LIBERTAD #### [facility] [address] [place] [address] Dr. Kelsie Dominguez FERRITINon 01-31-2022 Ferritin [Mass/Vol] 96.0 ng/mL Normal 8.0-252.0 [facility] Comment on above: Performed By: #### C LIBERTAD #### [facility] [address] [place] [address] Dr. Kelsie Dominguez HEMOGRAM AND PLATELon 2021 Hematocrit (Bld) [Volume fraction] 38.7 % Normal 36.0-48.0 [facility] Comment on above: Performed By: #### H H #### [facility] [address] [place] [address] Dr. Kelsie Dominguez Hemoglobin (Bld) [Mass/Vol] 12.4 g/dL Normal 12.0-16.0 [facility] Comment on above: Performed By: #### H H #### [facility] [address] [address] [address] Kelsie Dominguez MCH (RBC) [Entitic mass] 31.3 pg Normal 26.7-34.0 [facility] Comment on above: Performed By: #### H H #### [facility] [address] [address] [address] Kelsie Dominguez MCHC (RBC) [Mass/Vol] 32.0 g/dL Normal 29.9-35.2 [facility] Comment on above: Performed By: #### H H #### [facility] [address] [address] [address] Kelsie Dominguez MCV (RBC) [Entitic vol] 97.7 fL Normal 81.0-99.0 [facility] Comment on above: Performed By: #### H H #### [facility] [address] [place] [address] Dr. Kelsie Dominguez PLT 157 103/ul Normal 150-450 [facility] Comment on above: Performed By: #### H H #### [facility] [address] [place] [address] Dr. Kelsie Dominguez RBC 3.96 106/ul Critically low 4.20-5.40 [facility] Comment on above: Performed By: #### H H #### [facility] [address] [place] [address] Dr. Kelsie Dominguez WBC 6.8 103/ul Normal 4.0-11.0 [facility] Comment on above: Performed By: #### H H #### [facility] [address] [place] [address] Dr. Kelsie Dominguez IRON AND TIBCon 01-31-2022 % SATURATION 16.4 % Normal [facility] Comment on above: Performed By: #### C LIBERTAD #### [facility] [address] [place] [address] Dr. Kelsie Dominguez Iron [Mass/Vol] 44.0 ug/dL Critically low 50.0-170.0 [facility] Comment on above: Performed By: #### C LIBERTAD #### [facility] [address] [place], [place] [id number] Dr. Kelsie Dominguez TIBC DIRECT 268.0 ug/dL Normal 250.0-450.0 [facility] Comment on above: Performed By: #### C BCMAN #### [facility] [address] [address] [address] Kelsie Dominguez MAGNESIUMon 01-31-2022 Magnesium [Mass/Vol] 1.9 mg/dL Normal 1.8-2.4 [facility] Comment on above: Performed By: #### M G, RENAL, URIC #### [facility] [address] [address] [address] Kelsie Dominguez RENAL FUNCTION PANELon 01-31 Albumin [Mass/Vol] 3.3 g/dL Critically low 3.4-5.0 [facility] Comment on above: Performed By: #### M G, RENAL, URIC #### [facility] [address] [address] [address] Kelsie Dominguez Calcium [Mass/Vol] 9.3 mg/dL Normal 8.5-10.1 [facility] Comment on above: Performed By: #### M G, RENAL, URIC #### [facility] [address] [address] [address] Kelsie Dominguez Chloride [Moles/Vol] 110 mmol/L Critically high 98-107 [facility] Comment on above: Performed By: #### M G, RENAL, URIC #### [facility] [address] [address] [address] Kelsie Dominguez CO2 [Moles/Vol] 24.0 mmol/L Normal 21.0-32.0 [facility] Comment on above: Performed By: #### M G, RENAL, URIC #### [facility] [address] [address] [address] Kelsie Dominguez Creatinine [Mass/Vol] 1.37 mg/dL Critically high 0.55-1.02 [facility] Comment on above: Performed By: #### M G, RENAL, URIC #### [facility] [address] [address] [address] Kelsie Dominguez EGFR-AF FINNISH 48 mL/min/1.73m2 Critically low >=60 [facility] Comment on above: Performed By: #### M G, RENAL, URIC #### [facility] [address] [place] [address] Dr. Kelsie Dominguez EGFR-NON AF FINNISH 40 mL/min/1.73m2 Critically low >=60 [facility] Comment on above: Performed By: #### M G, RENAL, URIC #### [facility] [address] [place] [address] Dr. Kelsie Dominguez Glucose [Mass/Vol] 280 mg/dL Critically high 74-106 [facility] Comment on above: Performed By: #### M G, RENAL, URIC #### [facility] [address] [place] [address] Dr. Kelsie Dominguez Phosphate [Mass/Vol] 3.7 mg/dL Normal 2.6-4.7 [facility] Comment on above: Performed By: #### M G, RENAL, URIC #### [facility] [address] [place] [address] Dr. Kelsie Dominguez Potassium [Moles/Vol] 4.4 mmol/L Normal 3.5-5.1 [facility] Comment on above: Performed By: #### M G, RENAL, URIC #### [facility] [address] [place] [address] Dr. Kelsie Dominguez Sodium [Moles/Vol] 146 mmol/L Critically high 136-145 [facility] Comment on above: Performed By: #### M G, RENAL, URIC #### [facility] [address] [place] [address] Dr. Kelsie Dominguez Urea nitrogen [Mass/Vol] 36.0 mg/dL Critically high 7.0-18.0 [facility] Comment on above: Performed By: #### M G, RENAL, URIC #### [facility] [address] [place] [address] Dr. Kelsie Dominguez UA RANDOM W/MICROSCOPICon BACTERIA SMALL Abnormal NONE SEEN [facility] Comment on above: Performed By: #### V ITAD #### [facility] [address] [place] [address] Dr. Kelsie Dominguez Bilirubin Ql (U) Negative Normal NEGATIVE [facility] Comment on above: Performed By: #### V ITAD #### [facility] [address] [place] [address] Dr. Kelsie Dominguez CAST NONE SEEN Normal NONE SEEN [facility] Comment on above: Performed By: #### V ITAD #### [facility] [address] [place] [address] Dr. Kelsie Dominguez Clarity (U) CLEAR Normal CLEAR [facility] Comment on above: Performed By: #### V ITAD #### [facility] [address] [place] [address] Dr. Kelsie Dominguez Color (U) LT. YELLOW Normal YELLOW [facility] Comment on above: Performed By: #### V ITAD #### [facility] [address] [place] [address] Dr. Kelsie Dominguez Crystals LM Nom (Urine sed) NONE SEEN Normal NONE SEEN [facility] Comment on above: Performed By: #### V ITAD #### [facility] [address] [place] [address] Dr. Kelsie Dominguez Epithelial cells LM Ql (Urine sed) FEW Abnormal NONE SEEN /RARE [facility] Comment on above: Performed By: #### V ITAD #### [facility] [address] [place] [address] Dr. Kelsie Dominguez Glucose Ql (U) 500 mg/dl Abnormal NEGATIVE [facility] Comment on above: Performed By: #### V ITAD #### [facility] [address] [place] [address] Dr. Kelsie Dominguez Hemoglobin Ql (U) LARGE Abnormal NEGATIVE [facility] Comment on above: Performed By: #### V ITAD #### [facility] [address] [place] [address] Dr. Kelsie Dominguez Ketones Ql (U) Negative Normal NEGATIVE [facility] Comment on above: Performed By: #### V ITAD #### [facility] [address] [place] [address] Dr. Kelsie Dominguez LEUKOCYTES SMALL Abnormal NEGATIVE [facility] Comment on above: Performed By: #### V ITAD #### [facility] [address] [place] [address] Dr. Kelsie Dominguez MUCOUS NONE SEEN Normal NONE SEEN [facility] Comment on above: Performed By: #### V ITAD #### [facility] [address] [place] [address] Dr. Kelsie Dominguez Nitrite Ql (U) Negative Normal NEGATIVE [facility] Comment on above: Performed By: #### V ITAD #### [facility] [address] [place] [address] Dr. Kelsie Dominguez pH (U) 6.0 [pH] Normal 5-9 [facility] Comment on above: Performed By: #### V ITAD #### [facility] [address] [place] [address] Dr. Kelsie Dominguez RBC 20-50 Abnormal 0-2 [facility] Comment on above: Performed By: #### V ITAD #### [facility] [address] [place] [address] Dr. Kelsie Dominguez SPEC GRAVITY 1.020 Normal 1.005-<=1.02 5 [facility] Comment on above: Performed By: #### V ITAD #### [facility] [address] [place] [address] Dr. Kelsie Dominguez UA PROTEIN 30 mg/dl Abnormal NEGATIVE/ TRACE [facility] Comment on above: Performed By: #### V ITAD #### [facility] [address] [place] [address] Dr. Kelsie Dominguez Urobilinogen Qn (U) 0.2 {Miguel'U}/dL Normal 0.2 - 1. 0 [facility] Comment on above: Performed By: #### V ITAD #### [facility] [address] [place] [address] Dr. Kelsie Dominguez WBC 20-50 Abnormal NONE SEEN [facility] Comment on above: Performed By: #### V ITAD #### [facility] [address] [place] [address] Dr. Kelsie Dominguez URIC ACID SERUMon 01-31-2022 Urate [Mass/Vol] 9.4 mg/dL Critically high 2.6-6.0 [facility] Comment on above: Performed By: #### M G, RENAL, URIC #### [facility] [address] [address] [address] Kelsie Dominguez URINE T PROTEIN CREAT RATIOo n 01-31-2022 Protein (U) [Mass/Vol] 56.9 mg/dL Critically high <=12.0 [facility] Comment on above: Performed By: #### H H #### [facility] [address] [address] [address] Kelsie Dominguez UR PROT CREAT RAT 0.42 Normal [facility] Comment on above: Performed By: #### H H #### [facility] [address] [place] [address] Dr. Kelsie Dominguez URINE CREAT 136.85 mg/dL Normal 20.00-300.00 [facility] Comment on above: Performed By: #### H H #### [facility] [address] [address] [address] Kelsie Dominguez VITAMIN D 25 OHon 01-31-2022 VIT D 25-OH 32.0 ng/mL Normal [facility] Comment on above: Performed By: #### C LIBERTAD #### [facility] [address] [place] [address] Dr. Kelsie Dominguez VIT D RANGES SEE BELOW Normal [facility] Comment on above: Result Comment: <20 ng/mL Vit D deficient 20 - <30 ng/mL Vit D insufficient 30 - 100 ng/mL Vit D sufficient >100 ng/mL Potential Toxicity Performed By: #### C BCMAN #### [facility] [address] [place] [address] Dr. Kelsie Dominguez Provider Letter FTon 01-11 Provider Letter [facility] January 11, 2022 KAYLENERAQUEL L [address] [place] [address] DROWQuanRAQUEL L 1965 To Whom It May Concern, Please excuse above patient from work 01/10/2022 due to doctor office appointment. . Sincerely, Dr. Nalini Landers MD General Surgery [facility] Ambulatory Visit Summaryon 0 01-10-2022 Ambulatory [...] treatment for. Anticoagulated Left axillary abscess Normal [facility] General Surgery Office/Clini c Noteon 01-10-2022 General [...] inactivated - Not Given Patient Refuses Normal [facility] Comment on above: Result Comment: Elec tronically Signed By: SHAHEED ARAIZA, Nalini Feng\Date and Time Signed: 01/10/22 17:59 EDT Pathology Noteon 01-04-2022 Pathology Note [id number] 1.00CD:127 Normal [facility] Operative Reporton Operative Report [id number]#1 .00CD:127 [facility] Consultation Noteon 12-27-19 Consultation Note [id number]#1 .00CD:127 [facility] SARS-CoV-2 (COVID-19) RNA NA A+probe Ql (Resp)on 12-06-2021 SARS-CoV-2 (COVID-19) RNA SUZANNA+probe Ql (Unsp spec) Positive CS-Keys Other Physician Referralon 022 Physician Referral [id number] .00CD:127 Normal [facility] Lab Reportson 12-01-2021 Lab Reports [id number] .00CD:127 Normal [facility] BASIC METABOLIC PANELon Calcium [Mass/Vol] 8.7 mg/dL Normal 8.6-10.3 [facility] [place] [facility] Comment on above: Order Comment: No: D o not add to previous draw Performed By: #### 8 4511 #### [facility] [address] [place] [address], [place] Chloride [Moles/Vol] 104 mmol/L Normal 98-107 [facility] Comment on above: Order Comment: No: D o not add to previous draw Performed By: #### 8 4511 #### [facility] [address] [place] [address], [place] CO2 [Moles/Vol] 27 mmol/L Normal 21-31 The [facility] Comment on above: Order Comment: No: D o not add to previous draw Performed By: #### 8 4511 #### [facility] [address] [place] [address], [place] Creatinine [Mass/Vol] 0.85 mg/dL Normal 0.60-1.20 [facility] Comment on above: Order Comment: No: D o not add to previous draw Performed By: #### 8 4511 #### [facility] [address] [place] [address], [place] GFR/1.73 sq M.predicted among non-blacks MDRD (S/P/Bld) [Vol rate/Area] mL/min/{1.73_m2} Normal >60 [facility] Comment on above: Order Comment: No: D o not add to previous draw Result Comment: [facility]'s estimated glomerular filtration rate (eGFR) will no [...] individuals. Performed By: #### 8 4511 #### [facility] [address] [place] [address], [place] Glucose [Mass/Vol] 150 mg/dL High 70-100 [facility] Comment on above: Order Comment: No: D o not add to previous draw Performed By: #### 8 4511 #### [facility] [address] [place] [address], [place] Potassium [Moles/Vol] 4.3 mmol/L Normal 3.5-5.1 [facility] Comment on above: Order Comment: No: D o not add to previous draw Performed By: #### 8 4511 #### [facility] [address] [place] [address], [place] Sodium [Moles/Vol] 139 mmol/L Normal 136-145 [facility] Comment on above: Order Comment: No: D o not add to previous draw Performed By: #### 8 4511 #### [facility] [address] [place] [address], [place] Urea nitrogen [Mass/Vol] 11 mg/dL Normal 7-25 [facility] Comment on above: Order Comment: No: D o not add to previous draw Performed By: #### 8 4511 #### [facility] [address] [place] [address], [place] POC GLUCOSE LABon 11-24-2021 Glucose [Mass/Vol] 176 mg/dL High 70-100 [facility] Comment on above: Performed By: #### 8 5499 #### [facility] [address] [place] [address], [place] Glucose [Mass/Vol] 141 mg/dL High 70-100 [facility] Comment on above: Performed By: #### 8 5499 #### [facility] [address] [place] [address], [place] Glucose [Mass/Vol] 147 mg/dL High 70-100 [facility] Comment on above: Performed By: #### 8 5499 #### [facility] [address] [place] [address], [facility] BASIC METABOLIC PANELon 08-0 Calcium [Mass/Vol] 8.2 mg/dL Low 8.6-10.3 [facility] Comment on above: Order Comment: RESUL TS CHECKED AND CALLED. ACCURATELY READ BACK BY Jina TAVAREZ ED RN Performed By: #### 8 4511 #### [facility] [address] [place] [address], [facility] Chloride [Moles/Vol] 106 mmol/L Normal 98-107 [facility] Comment on above: Order Comment: RESUL TS CHECKED AND CALLED. ACCURATELY READ BACK BY Jina TAVAREZ ED RN Performed By: #### 8 4511 #### [facility] [address] [place] [address], [facility] CO2 [Moles/Vol] 29 mmol/L Normal 21-31 The [facility] Comment on above: Order Comment: RESUL TS CHECKED AND CALLED. ACCURATELY READ BACK BY Jina TAVAREZ ED RN Performed By: #### 8 4511 #### [facility] [address] [place] [address], [facility] Creatinine [Mass/Vol] 1.04 mg/dL Normal 0.60-1.20 [facility] Comment on above: Order Comment: RESUL TS CHECKED AND CALLED. ACCURATELY READ BACK BY Jina TAVAREZ ED, RN Performed By: #### 8 4511 #### [facility] [address] [place] [address], [facility] GFR/1.73 sq M.predicted among non-blacks MDRD (S/P/Bld) [Vol rate/Area] mL/min/{1.73_m2} Normal >60 [facility] Comment on above: Order Comment: RESUL TS CHECKED AND CALLED. ACCURATELY READ BACK BY Jina TAVAREZ ED RN Result Comment: [facility] [place] [facility]'s estimated glomerular filtration rate (eGFR) [...] individuals. Performed By: #### 8 4511 #### [facility] [address] [place] [address], [facility] Glucose [Mass/Vol] 124 mg/dL High 70-100 [facility] Comment on above: Order Comment: RESUL TS CHECKED AND CALLED. ACCURATELY READ BACK BY Jina TAVAREZ ED RN Performed By: #### 8 4511 #### [facility] [address] [place] [address], [facility] Potassium [Moles/Vol] 3.3 mmol/L Low 3.5-5.1 [facility] Comment on above: Order Comment: RESUL TS CHECKED AND CALLED. ACCURATELY READ BACK BY Jina TAVAREZ ED RN Performed By: #### 8 4511 #### [facility] [address] [place] [address], [facility] Sodium [Moles/Vol] 145 mmol/L Normal 136-145 [facility] Comment on above: Order Comment: RESUL TS CHECKED AND CALLED. ACCURATELY READ BACK BY Jina TAVAREZ ED RN Performed By: #### 8 4511 #### [facility] [address] [place] [address], [facility] Urea nitrogen [Mass/Vol] 15 mg/dL Normal 7-25 [facility] Comment on above: Order Comment: RESUL TS CHECKED AND CALLED. ACCURATELY READ BACK BY Jina TAVAREZ ED RN Performed By: #### 8 4511 #### [facility] [address] [place] [address], [facility] CBC W/DIFFon 11-23-2021 ABS IMM GRANS 0.0 10*3/uL Normal 0.0-0.2 The [facility] Comment on above: Order Comment: No: D o not add to previous draw Performed By: #### 8 4511 #### [facility] [address] [place] [address], [facility] ABS NEUTROPHILS 4.5 10*3/uL Normal 1.6-7.6 The [facility] Comment on above: Order Comment: No: D o not add to previous draw Performed By: #### 8 4511 #### [facility] [address] [place] [address], [facility] Basophils (Bld) [#/Vol] 0.0 10*3/uL Normal 0.0-0.2 [facility] Comment on above: Order Comment: No: D o not add to previous draw Performed By: #### 8 4511 #### [facility] [address] [place] [address], [facility] Basophils/100 WBC (Bld) 0.6 % Normal 0.0-1.0 [facility] Comment on above: Order Comment: No: D o not add to previous draw Performed By: #### 8 4511 #### [facility] [address] [place] [address], [facility] Eosinophils (Bld) [#/Vol] 0.1 10*3/uL Normal 0.0-0.5 [facility] Comment on above: Order Comment: No: D o not add to previous draw Performed By: #### 8 4511 #### [facility] [address] [place] [address], [facility] Eosinophils/100 WBC (Bld) 1.7 % Normal 0.0-6.0 [facility] Comment on above: Order Comment: No: D o not add to previous draw Performed By: #### 8 4511 #### [facility] [address] [place] [address], [place] Erythrocyte distribution width (RBC) [Ratio] 14.4 % Normal 11.5-15.0 [facility] Comment on above: Order Comment: No: D o not add to previous draw Performed By: #### 8 4511 #### [facility] [address] [place] [address], [facility] Hematocrit (Bld) [Volume fraction] 32.1 % Low 36.0-45.0 [facility] Comment on above: Order Comment: No: D o not add to previous draw Performed By: #### 8 4511 #### [facility] [address] [place] [address], [facility] Hemoglobin (Bld) [Mass/Vol] 10.5 g/dL Low 12.0-15.0 [facility] Comment on above: Order Comment: No: D o not add to previous draw Performed By: #### 8 4511 #### [facility] [address] [facility] [place] [address], [facility] IMMATURE GRANS 0.5 % Normal 0.0-1.0 The [facility] Comment on above: Order Comment: No: D o not add to previous draw Performed By: #### 8 4511 #### [facility] [address] [place] [address], [facility] Lymphocytes (Bld) [#/Vol] 1.1 10*3/uL Low 1.2-4.0 [facility] Comment on above: Order Comment: No: D o not add to previous draw Performed By: #### 8 4511 #### [facility] [address] [place] [address], [facility] Lymphocytes/100 WBC (Bld) 17.4 % Low 20.0-45.0 [facility] Comment on above: Order Comment: No: D o not add to previous draw Performed By: #### 8 4511 #### [facility] [address] [place] [address], [place] MCH (RBC) [Entitic mass] 31.8 pg Normal 27.0-33.0 [facility] Comment on above: Order Comment: No: D o not add to previous draw Performed By: #### 8 4511 #### [facility] [address] [place] [address], [facility] MCHC (RBC) [Mass/Vol] 32.7 g/dL Normal 32.0-35.0 [facility] Comment on above: Order Comment: No: D o not add to previous draw Performed By: #### 8 4511 #### [facility] [address] [place] [address], [facility] MCV (RBC) [Entitic vol] 97.3 fL Normal 82.0-98.0 [facility] Comment on above: Order Comment: No: D o not add to previous draw Performed By: #### 8 4511 #### [facility] [address] [place] [address], [facility] Monocytes (Bld) [#/Vol] 0.7 10*3/uL Normal 0.1-1.0 [facility] Comment on above: Order Comment: No: D o not add to previous draw Performed By: #### 8 4511 #### [facility] [address] [place] [address], [facility] MONOS 10.5 % Normal 5.0-12.0 [facility] Comment on above: Order Comment: No: D o not add to previous draw Performed By: #### 8 4511 #### [facility] [address] [place] [address], [place] Neutrophils/100 WBC (Bld) 69.3 % Normal 40.0-72.0 [facility] Comment on above: Order Comment: No: D o not add to previous draw Performed By: #### 8 4511 #### [facility] [address] [place] [address], [facility] Nucleated RBC/100 WBC (Bld) [Ratio] 0 % Normal 0-0 [facility] Comment on above: Order Comment: No: D o not add to previous draw Performed By: #### 8 4511 #### [facility] [address] [place] [address], [facility] [place] [facility] PLAT CNT 146 10*3/uL Low 150-400 [facility] Comment on above: Order Comment: No: D o not add to previous draw Performed By: #### 8 4511 #### [facility] [address] [place] [address], [facility] RBC (Bld) [#/Vol] 3.30 10*6/uL Low 3.80-5.00 [facility] Comment on above: Order Comment: No: D o not add to previous draw Performed By: #### 8 4511 #### [facility] [address] [place] [address], [facility] WBC (Bld) [#/Vol] 6.48 10*3/uL Normal 4.00-10.60 [facility] Comment on above: Order Comment: No: D o not add to previous draw Performed By: #### 8 4511 #### [facility] [address] [place] [address], [facility] MAGNESIUM BLOODon 11-23-2021 Magnesium [Mass/Vol] 1.8 mg/dL Low 1.9-2.7 [facility] Comment on above: Order Comment: RESUL TS CHECKED AND CALLED. ACCURATELY READ BACK BY Jina TAVAREZ ED, RN Performed By: #### 8 4511 #### [facility] [address] [place] [address], [facility] POC GLUCOSE LABon 11-23-2021 Glucose [Mass/Vol] 175 mg/dL High 70-100 [facility] Comment on above: Performed By: #### 8 5499 ####[facility] [place] [address], [place] Glucose [Mass/Vol] 148 mg/dL High 70-100 [facility] Comment on above: Performed By: #### 8 4511 #### [facility] [address] [place] [address], [facility] Glucose [Mass/Vol] 115 mg/dL High 70-100 [facility] Comment on above: Performed By: #### 8 5499 #### [facility] [address] [place] [address], [facility] Glucose [Mass/Vol] 123 mg/dL High 70-100 [facility] Comment on above: Performed By: #### 8 5499 #### [address] [address], [facility] PORTABLE CHEST 1 VIEW PORTABLE CHEST 1 VIEW [facility] Department of Radiology [address] [place] [address] [phone] Patient Name: RAQUEL VILA : 1965 Sex: F Age: Race: White Pt. Location: [place] [address] Patient Status: I Ordered Date: 11/23/2021 12:10:00 [...] process Electronically signed: Maggie Lynne. Transcribed by: [email or web address], User Resident: Electronically Signed by: MAGGIE LYNNE @ 11/23/2021 01:05 PM Normal [facility] Comment on above: Order Comment: Atele ctasis ARTERIAL BLOOD GAS WITH ICAo n 11-22-2021 BASE EXCESS 2 mmol/L Normal -2-3 [facility] Comment on above: Performed By: #### 8 4511 #### [facility] [address] DELIVERY SYSTEMS VENTILATOR Normal [facility] Comment on above: Performed By: #### 8 4511 #### [facility] [address] [place] [address], [facility] FIO2 40 % Normal [facility] Comment on above: Performed By: #### 8 4511 #### [facility] [address] [place] [address], [facility] HCO3 (Bld) [Moles/Vol] 27 mmol/L Normal 21-28 [facility] Comment on above: Performed By: #### 8 4511 #### [facility] [address] [place] [address], [facility] IONIZED CALCIUM 1.16 mmol/L Normal 1.13-1.32 [facility] Comment on above: Performed By: #### 8 4511 #### [facility] [address] [place] [address], [place] MIN VOLUME 8.1 Normal [facility] Comment on above: Performed By: #### 8 4511 #### [facility] [address] [place] [address], [place] MODALITY AC-ASSIST CONTROL Normal [facility] Comment on above: Performed By: #### 8 4511 #### [facility] [address] [place] [address], [place] Oxygen (Bld) [Partial pressure] 85 mm[Hg] Normal 83-108 [facility] Comment on above: Performed By: #### 8 4511 #### [facility] [address] [place] [address], [place] Oxygen saturation in Blood 97.0 % Normal 94.0-97.0 [facility] Comment on above: Performed By: #### 8 4511 #### [facility] [address] [place] [address], [place] PCO2 40 mmHg Normal 35-45 [facility] Comment on above: Performed By: #### 8 4511 #### [facility] [address] [place] [address], [place] PEEP 8.0 CMH20 Normal [facility] Comment on above: Performed By: #### 8 4511 #### [facility] [address] [place] [address], [place] PF RATIO 215 mmHg Normal [facility] Comment on above: Performed By: #### 8 4511 #### [facility] [address] [place] [address], [place] pH (Bld) 7.43 [pH] Normal 7.35-7.45 [facility] Comment on above: Performed By: #### 8 4511 #### [facility] [address] [place] [address], [place] Respiratory rate 18 /min Normal [facility] Comment on above: Performed By: #### 8 4511 #### [facility] [address] [place] [address], [facility] TIDAL VOLUME (VT) CC 450 Normal [facility] Comment on above: Performed By: #### 8 4511 #### [facility] [address] [place] [address], [facility] CBC COMPLETE BLOOD COUNTon 0 11-22-2021 Erythrocyte distribution width (RBC) [Ratio] 14.6 % Normal 11.5-15.0 [facility] Comment on above: Order Comment: No: D o not add to previous draw Performed By: #### 8 4511 #### [facility] [address] [place] [address], [facility] Hematocrit (Bld) [Volume fraction] 32.0 % Low 36.0-45.0 [facility] Comment on above: Order Comment: No: D o not add to previous draw Performed By: #### 8 4511 #### [facility] [address] [place] [address], [facility] Hemoglobin (Bld) [Mass/Vol] 10.6 g/dL Low 12.0-15.0 [facility] Comment on above: Order Comment: No: D o not add to previous draw Performed By: #### 8 4511 #### [facility] [address] [place] [address], [place] MCH (RBC) [Entitic mass] 31.6 pg Normal 27.0-33.0 [facility] Comment on above: Order Comment: No: D o not add to previous draw Performed By: #### 8 4511 #### [facility] [address] [place] [address], [place] MCHC (RBC) [Mass/Vol] 33.1 g/dL Normal 32.0-35.0 [facility] Comment on above: Order Comment: No: D o not add to previous draw Performed By: #### 8 4511 #### [facility] [address] [place] [address], [facility] MCV (RBC) [Entitic vol] 95.5 fL Normal 82.0-98.0 [facility] Comment on above: Order Comment: No: D o not add to previous draw Performed By: #### 8 4511 #### [facility] [address] [place] [address], [facility] Nucleated RBC/100 WBC (Bld) [Ratio] 0 % Normal 0-0 [facility] Comment on above: Order Comment: No: D o not add to previous draw Performed By: #### 8 4511 #### [facility] [address] [place] [address], [place] PLAT CNT 147 10*3/uL Low 150-400 [facility] Comment on above: Order Comment: No: D o not add to previous draw Performed By: #### 8 4511 #### [facility] [address] [place] [id number], [facility] RBC (Bld) [#/Vol] 3.35 10*6/uL Low 3.80-5.00 [facility] Comment on above: Order Comment: No: D o not add to previous draw Performed By: #### 8 4511 #### [facility] [address] [place] [address], [place] WBC (Bld) [#/Vol] 7.77 10*3/uL Normal 4.00-10.60 [facility] Comment on above: Order Comment: No: D o not add to previous draw Performed By: #### 8 4511 #### [facility] [address] [place] [address], [place] COMP METABOLIC PANELon 11-22 Albumin [Mass/Vol] 3.4 g/dL Low 3.5-5.7 [facility] Comment on above: Order Comment: No: D o not add to previous draw Performed By: #### 8 4511 #### [facility] [address] [place] [address], [place] ALKALINE PHOSPH 134 IU/L High 34-[address] [facility] Comment on above: Order Comment: No: D o not add to previous draw Performed By: #### 8 4511 #### [facility] [address] [place] [address], [place] ALT [Catalytic activity/Vol] 400 U/L Critically high 7-52 [facility] Comment on above: Order Comment: No: D o not add to previous draw Performed By: #### 8 4511 #### [facility] [address] [place] [address], [place] AST [Catalytic activity/Vol] 306 U/L High 13-39 [facility] Comment on above: Order Comment: No: D o not add to previous draw Performed By: #### 8 4511 #### [facility] [address] [place] [address], [place] Bilirubin [Mass/Vol] 0.4 mg/dL Normal 0.3-1.0 [facility] Comment on above: Order Comment: No: D o not add to previous draw Performed By: #### 8 4511 #### [facility] [address] [place] [address], [place] Calcium [Mass/Vol] 8.4 mg/dL Low 8.6-10.3 [facility] Comment on above: Order Comment: No: D o not add to previous draw Performed By: #### 8 4511 #### [facility] [address] [place] [address], [place] Chloride [Moles/Vol] 109 mmol/L High 98-107 [facility] Comment on above: Order Comment: No: D o not add to previous draw Performed By: #### 8 4511 #### [facility] [address] [place] [address], [place] CO2 [Moles/Vol] 25 mmol/L Normal 21-31 [facility] Comment on above: Order Comment: No: D o not add to previous draw Performed By: #### 8 4511 #### [facility] [address] [place] [address], [facility] Creatinine [Mass/Vol] 1.34 mg/dL High 0.60-1.20 [facility] Comment on above: Order Comment: No: D o not add to previous draw Performed By: #### 8 4511 #### [facility] [address] [place] [address], [facility] EGFR 47 ml/min/1.73sq m Abnormal >60 [facility] Comment on above: Order Comment: No: D o not add to previous draw Result Comment: [facility]'s estimated glomerular filtration rate (eGFR) will no [...] individuals. Performed By: #### 8 4511 #### [facility] [address] [place] [address], [facility] Glucose [Mass/Vol] 100 mg/dL Normal 70-100 [facility] Comment on above: Order Comment: No: D o not add to previous draw Performed By: #### 8 4511 #### [facility] [address] [place] [address], [facility] Potassium [Moles/Vol] 3.2 mmol/L Low 3.5-5.1 [facility] Comment on above: Order Comment: No: D o not add to previous draw Performed By: #### 8 4511 #### [facility] [address] [place] [address], [facility] Protein [Mass/Vol] 5.5 g/dL Low 6.0-8.3 [facility] Comment on above: Order Comment: No: D o not add to previous draw Performed By: #### 8 4511 #### [facility] [address] [place] [address], [place] Sodium [Moles/Vol] 144 mmol/L Normal 136-145 [facility] Comment on above: Order Comment: No: D o not add to previous draw Performed By: #### 8 4511 #### [facility] [address] [place] [address], [facility] Urea nitrogen [Mass/Vol] 21 mg/dL Normal 7-25 [facility] Comment on above: Order Comment: No: D o not add to previous draw Performed By: #### 8 4511 #### [facility] [address] [place] [address], [place] MAGNESIUM BLOODon 11-22-2021 Magnesium [Mass/Vol] 1.9 mg/dL Normal 1.9-2.7 [facility] Comment on above: Order Comment: No: D o not add to previous draw Performed By: #### 8 4511 #### [facility] [address] [place] [address], [place] PHOSPHORUS BLOODon Phosphate [Mass/Vol] 3.3 mg/dL Normal 2.5-5.0 [facility] Comment on above: Order Comment: No: D o not add to previous draw Performed By: #### 8 4511 #### [facility] [address] [place] [address], [place] POC GLUCOSE LABon 11-22-2021 Glucose [Mass/Vol] 140 mg/dL High 70-100 [facility] Comment on above: Performed By: #### 8 5499 #### [facility] [address] [place] [address], [facility] Glucose [Mass/Vol] 160 mg/dL High 70-100 [facility] Comment on above: Performed By: #### 8 5499 #### [facility] [address] [place] [address], [facility] Glucose [Mass/Vol] 86 mg/dL Normal 70-100 [facility] Comment on above: Performed By: #### 8 4511 #### [facility] [address] [place] [address], [facility] *BLOOD CULTUREon 11-21-2021 *BLOOD CULTURE Clinical Report: (D) Specimen: BLOOD CULTURE Collected: 11/21/2021 00:17 Status: Final Last Updated: 11/26/2021 06:23 CULT RES (Final) No Growth Day 5 Normal [facility] Comment on above: Performed By: #### 8 5499 #### [facility] [address] [place] [address], [facility] Performed By: #### 8 4511 #### [facility] [address] [place] [address], [facility] ARTERIAL BLOOD GAS WITH ICAo n 11-21-2021 BASE EXCESS -1 mmol/L Normal -2-3 [facility] Comment on above: Performed By: #### 8 5499 #### [facility] [address] [place] [address], [facility] DELIVERY SYSTEMS VENTILATOR Normal [facility] Comment on above: Performed By: #### 8 5499 #### [facility] [address] [place] [address], [facility] FIO2 70 % Normal [facility] Comment on above: Performed By: #### 8 5499 #### [facility] [address] [place] [address], [facility] HCO3 (Bld) [Moles/Vol] 24 mmol/L Normal 21-28 [facility] Comment on above: Performed By: #### 8 5499 #### [facility] [address] [place] [address], [facility] IONIZED CALCIUM 1.17 mmol/L Normal 1.13-1.32 [facility] Comment on above: Performed By: #### 8 5499 #### [facility] [address] [place] [address], [facility] MIN VOLUME 11.0 Normal [facility] Comment on above: Performed By: #### 8 5499 #### [facility] [address] [place] [address], [facility] MODALITY AC VC Normal [facility] Comment on above: Performed By: #### 8 5499 #### [facility] [address] [place] [address], [place] Oxygen (Bld) [Partial pressure] 191 mm[Hg] Critically high 83-108 [facility] Comment on above: Performed By: #### 8 5499 #### [facility] [address] [place] [address], [place] Oxygen saturation in Blood 97.8 % High 94.0-97.0 [facility] Comment on above: Performed By: #### 8 5499 #### [facility] [address] [place] [address], [facility] PCO2 39 mmHg Normal 35-45 [facility] Comment on above: Performed By: #### 8 5499 #### [facility] [address] [place] [address], [place] PEEP 10.0 CMH20 Normal [facility] Comment on above: Performed By: #### 8 5499 #### [facility] [address] [place] [address], [place] pH (Bld) 7.40 [pH] Normal 7.35-7.45 [facility] Comment on above: Performed By: #### 8 5499 #### [facility] [address] [place] [address], [facility] Respiratory rate 24 /min Normal [facility] Comment on above: Performed By: #### 8 5499 #### [facility] [address] [place] [address], [place] TIDAL VOLUME (VT) CC 450 Normal [facility] Comment on above: Performed By: #### 8 5499 #### [facility] [address] [place] [address], [facility] BASIC METABOLIC PANELon 08-0 -2021 Calcium [Mass/Vol] 9.3 mg/dL Normal 8.6-10.3 [facility] Comment on above: Order Comment: RESUL TS CHECKED AND CALLED. ACCURATELY READ BACK BY Jina TAVAREZ ED RN Performed By: #### 8 4511 #### [facility] [address] [place] [address], [facility] Chloride [Moles/Vol] 106 mmol/L Normal 98-107 [facility] Comment on above: Order Comment: RESUL TS CHECKED AND CALLED. ACCURATELY READ BACK BY Jina TAVAREZ ED RN Performed By: #### 8 4511 #### [facility] [address] [place] [address], [place] CO2 [Moles/Vol] 25 mmol/L Normal 21-31 [facility] Comment on above: Order Comment: RESUL TS CHECKED AND CALLED. ACCURATELY READ BACK BY Jina TAVAREZ ED RN Performed By: #### 8 4511 #### [facility] [address] [place] [address], [place] Creatinine [Mass/Vol] 1.68 mg/dL High 0.60-1.20 [facility] Comment on above: Order Comment: RESUL TS CHECKED AND CALLED. ACCURATELY READ BACK BY Jina TAVAREZ ED RN Performed By: #### 8 4511 #### [facility] [address] [place] [address], [facility] EGFR 36 ml/min/1.73sq m Abnormal >60 [facility] Comment on above: Order Comment: RESUL TS CHECKED AND CALLED. ACCURATELY READ BACK BY Jina TAVAREZ ED RN Result Comment: [facility]'s estimated glomerular filtration rate (eGFR) will no [...] individuals. Performed By: #### 8 4511 #### [facility] [address] [place] [id number], [facility] Glucose [Mass/Vol] 201 mg/dL High 70-100 [facility] Comment on above: Order Comment: RESUL TS CHECKED AND CALLED. ACCURATELY READ BACK BY Jina TAVAREZ ED, RN Performed By: #### 8 4511 #### [facility] [address] [place] [address], [facility] Potassium [Moles/Vol] 3.7 mmol/L Normal 3.5-5.1 [facility] Comment on above: Order Comment: RESUL TS CHECKED AND CALLED. ACCURATELY READ BACK BY Jina TAVAREZ ED RN Performed By: #### 8 4511 #### [facility] [address] [place] [address], [facility] Sodium [Moles/Vol] 141 mmol/L Normal 136-145 [facility] Comment on above: Order Comment: RESUL TS CHECKED AND CALLED. ACCURATELY READ BACK BY Jina TAVAREZ ED RN Performed By: #### 8 4511 #### [facility] [address] [place] [address], [facility] Urea nitrogen [Mass/Vol] 28 mg/dL High 7-25 [facility] Comment on above: Order Comment: RESUL TS CHECKED AND CALLED. ACCURATELY READ BACK BY Jina TAVAREZ ED, RN Performed By: #### 8 4511 #### [facility] [address] [place] [address], [facility] BETA HYDROXYBUTYRATEon 11-21 BETA HYDROXYBUTYRATE 0.21 mmol/L Normal 0.02-0.27 [facility] Comment on above: Performed By: #### 8 4511 #### [facility] [address] [place] [address], [facility] CBC W/DIFFon 11-21-2021 ABS IMM GRANS 0.1 10*3/uL Normal 0.0-0.2 [facility] Comment on above: Order Comment: No: D o not add to previous draw Performed By: #### 8 4511 #### [facility] [address] [place] [address], [facility] ABS NEUTROPHILS 9.5 10*3/uL High 1.6-7.6 [facility] Comment on above: Order Comment: No: D o not add to previous draw Performed By: #### 8 4511 #### [facility] [address] [place] [address], [facility] Basophils (Bld) [#/Vol] 0.0 10*3/uL Normal 0.0-0.2 [facility] Comment on above: Order Comment: No: D o not add to previous draw Performed By: #### 8 4511 #### [facility] [address] [place] [address], [facility] Basophils/100 WBC (Bld) 0.3 % Normal 0.0-1.0 [facility] Comment on above: Order Comment: No: D o not add to previous draw Performed By: #### 8 4511 #### [facility] [address] [place] [address], [facility] Eosinophils (Bld) [#/Vol] 0.0 10*3/uL Normal 0.0-0.5 [facility] Comment on above: Order Comment: No: D o not add to previous draw Performed By: #### 8 4511 #### [facility] [address] [place] [address], [facility] Eosinophils/100 WBC (Bld) 0.0 % Normal 0.0-6.0 [facility] Comment on above: Order Comment: No: D o not add to previous draw Performed By: #### 8 4511 #### [facility] [address] [place] [address], [facility] Erythrocyte distribution width (RBC) [Ratio] 14.3 % Normal 11.5-15.0 [facility] Comment on above: Order Comment: No: D o not add to previous draw Performed By: #### 8 4511 #### [facility] [address] [facility] [place] [address], [facility] Hematocrit (Bld) [Volume fraction] 38.8 % Normal 36.0-45.0 [facility] Comment on above: Order Comment: No: D o not add to previous draw Performed By: #### 8 4511 #### [facility] [address] [facility] [place] [address], [facility] Hemoglobin (Bld) [Mass/Vol] 13.0 g/dL Normal 12.0-15.0 [facility] Comment on above: Order Comment: No: D o not add to previous draw Performed By: #### 8 4511 #### [facility] [address] [place] [address], [facility] IMMATURE GRANS 1.1 % High 0.0-1.0 [facility] Comment on above: Order Comment: No: D o not add to previous draw Performed By: #### 8 4511 #### [facility] [address] [place] [address], [facility] Lymphocytes (Bld) [#/Vol] 0.9 10*3/uL Low 1.2-4.0 [facility] Comment on above: Order Comment: No: D o not add to previous draw Performed By: #### 8 4511 #### [facility] [address] [place] [address], [facility] Lymphocytes/100 WBC (Bld) 8.2 % Low 20.0-45.0 [facility] Comment on above: Order Comment: No: D o not add to previous draw Performed By: #### 8 4511 #### [facility] [address] [place] [address], [facility] MCH (RBC) [Entitic mass] 31.3 pg Normal 27.0-33.0 [facility] Comment on above: Order Comment: No: D o not add to previous draw Performed By: #### 8 4511 #### [facility] [address] [place] [address], [facility] MCHC (RBC) [Mass/Vol] 33.5 g/dL Normal 32.0-35.0 [facility] Comment on above: Order Comment: No: D o not add to previous draw Performed By: #### 8 4511 #### [facility] [address] [facility] [place] [address], [facility] MCV (RBC) [Entitic vol] 93.3 fL Normal 82.0-98.0 [facility] Comment on above: Order Comment: No: D o not add to previous draw Performed By: #### 8 4511 #### [facility] [address] [facility] [place] [address], [facility] Monocytes (Bld) [#/Vol] 1.0 10*3/uL Normal 0.1-1.0 [facility] Comment on above: Order Comment: No: D o not add to previous draw Performed By: #### 8 4511 #### [facility] [address] [place] [address], [facility] MONOS 8.3 % Normal 5.0-12.0 [facility] Comment on above: Order Comment: No: D o not add to previous draw Performed By: #### 8 4511 #### [facility] [address] [place] [address], [facility] Neutrophils/100 WBC (Bld) 82.1 % High 40.0-72.0 [facility] Comment on above: Order Comment: No: D o not add to previous draw Performed By: #### 8 4511 #### [facility] [address] [place] [address], [facility] Nucleated RBC/100 WBC (Bld) [Ratio] 0 % Normal 0-0 [facility] Comment on above: Order Comment: No: D o not add to previous draw Performed By: #### 8 4511 #### [facility] [address] [place] [address], [place] PLAT CNT 176 10*3/uL Normal 150-400 The [facility] Comment on above: Order Comment: No: D o not add to previous draw Performed By: #### 8 4511 #### [facility] [address] [place] [address], [facility] RBC (Bld) [#/Vol] 4.16 10*6/uL Normal 3.80-5.00 [facility] Comment on above: Order Comment: No: D o not add to previous draw Performed By: #### 8 4511 #### [facility] [address] [place] [address], [place] WBC (Bld) [#/Vol] 11.53 10*3/uL High 4.00-10.60 [facility] Comment on above: Order Comment: No: D o not add to previous draw Performed By: #### 8 4511 #### [facility] [address] [place] [address], [place] ABS IMM GRANS 0.2 10*3/uL Normal 0.0-0.2 The [facility] Comment on above: Order Comment: Yes: Add to Previous draw if able Performed By: #### 8 5499 #### [facility] [address] [place] [address], [facility] ABS NEUTROPHILS 12.0 10*3/uL High 1.6-7.6 The [facility] Comment on above: Order Comment: Yes: Add to Previous draw if able Performed By: #### 8 5499 #### [facility] [address] [place] [address], [facility] Basophils (Bld) [#/Vol] 0.0 10*3/uL Normal 0.0-0.2 [facility] Comment on above: Order Comment: Yes: Add to Previous draw if able Performed By: #### 8 5499 #### [facility] [address] [place] [address], [facility] Basophils/100 WBC (Bld) 0.2 % Normal 0.0-1.0 [facility] Comment on above: Order Comment: Yes: Add to Previous draw if able Performed By: #### 8 5499 #### [facility] [address] [place] [address], [place] Eosinophils (Bld) [#/Vol] 0.0 10*3/uL Normal 0.0-0.5 [facility] Comment on above: Order Comment: Yes: Add to Previous draw if able Performed By: #### 8 5499 #### [facility] [address] [place] [address], [facility] Eosinophils/100 WBC (Bld) 0.1 % Normal 0.0-6.0 [facility] Comment on above: Order Comment: Yes: Add to Previous draw if able Performed By: #### 8 5499 #### [facility] [address] [place] [address], [place] Erythrocyte distribution width (RBC) [Ratio] 14.5 % Normal 11.5-15.0 [facility] Comment on above: Order Comment: Yes: Add to Previous draw if able Performed By: #### 8 [id number] #### [facility] [address] Hematocrit (Bld) [Volume fraction] 40.6 % Normal 36.0-45.0 [facility] Comment on above: Order Comment: Yes: Add to Previous draw if able Performed By: #### 8 5499 #### [facility] [address] [place] [address], [facility] Hemoglobin (Bld) [Mass/Vol] 13.3 g/dL Normal 12.0-15.0 [facility] Comment on above: Order Comment: Yes: Add to Previous draw if able Performed By: #### 8 5499 #### [facility] [address] IMMATURE GRANS 1.7 % High 0.0-1.0 The [facility] Comment on above: Order Comment: Yes: Add to Previous draw if able Performed By: #### 8 5499 #### [facility] [address] [facility] [place] [address], [facility] Lymphocytes (Bld) [#/Vol] 0.6 10*3/uL Low 1.2-4.0 The [facility] Comment on above: Order Comment: Yes: Add to Previous draw if able Performed By: #### 8 5499 #### [facility] [address] [place] [address], [facility] Lymphocytes/100 WBC (Bld) 4.2 % Low 20.0-45.0 [facility] Comment on above: Order Comment: Yes: Add to Previous draw if able Performed By: #### 8 5499 #### [facility] [address] [place] [address], [facility] MCH (RBC) [Entitic mass] 31.4 pg Normal 27.0-33.0 [facility] Comment on above: Order Comment: Yes: Add to Previous draw if able Performed By: #### 8 5499 #### [facility] [address] [place] [address], [facility] MCHC (RBC) [Mass/Vol] 32.8 g/dL Normal 32.0-35.0 [facility] Comment on above: Order Comment: Yes: Add to Previous draw if able Performed By: #### 8 5499 #### [facility] [address] [place] [id number], [facility] MCV (RBC) [Entitic vol] 95.8 fL Normal 82.0-98.0 [facility] Comment on above: Order Comment: Yes: Add to Previous draw if able Performed By: #### 8 5499 #### [facility] [address] [place] [address], [facility] Monocytes (Bld) [#/Vol] 0.8 10*3/uL Normal 0.1-1.0 [facility] Comment on above: Order Comment: Yes: Add to Previous draw if able Performed By: #### 8 5499 #### [facility] [address] [place] [address], [facility] MONOS 5.8 % Normal 5.0-12.0 [facility] Comment on above: Order Comment: Yes: Add to Previous draw if able Performed By: #### 8 5499 #### [facility] [address] [place] [address], [facility] Neutrophils/100 WBC (Bld) 88.0 % High 40.0-72.0 [facility] Comment on above: Order Comment: Yes: Add to Previous draw if able Performed By: #### 8 5499 #### [facility] [address] [place] [address], [facility] Nucleated RBC/100 WBC (Bld) [Ratio] 0 % Normal 0-0 [facility] Comment on above: Order Comment: Yes: Add to Previous draw if able Performed By: #### 8 5499 #### [facility] [address] [place] [address], [facility] PLAT CNT 163 10*3/uL Normal 150-400 The [facility] Comment on above: Order Comment: Yes: Add to Previous draw if able Performed By: #### 8 5499 #### [facility] [address] [place] [id number], [facility] RBC (Bld) [#/Vol] 4.24 10*6/uL Normal 3.80-5.00 [facility] Comment on above: Order Comment: Yes: Add to Previous draw if able Performed By: #### 8 5499 #### [facility] [address] [place] [address], [facility] WBC (Bld) [#/Vol] 13.68 10*3/uL High 4.00-10.60 [facility] Comment on above: Order Comment: Yes: Add to Previous draw if able Performed By: #### 8 5499 #### [facility] [address] [place] [address], [facility] COMP METABOLIC PANELon 11-21 Albumin [Mass/Vol] 4.1 g/dL Normal 3.5-5.7 [facility] Comment on above: Performed By: #### 8 4511 #### [facility] [address] [place] [address], [facility] ALKALINE PHOSPH 196 IU/L High 34-104 The [facility] Comment on above: Performed By: #### 8 4511 #### [facility] [address] [place] [address], [facility] ALT [Catalytic activity/Vol] 560 U/L Critically high 7-52 [facility] Comment on above: Performed By: #### 8 4511 #### [facility] [address] [place] [address], [facility] AST [Catalytic activity/Vol] 852 U/L High 13-39 The [facility] Comment on above: Performed By: #### 8 4511 #### [facility] [address] [place] [address], [place] Bilirubin [Mass/Vol] 0.9 mg/dL Normal 0.3-1.0 [facility] Comment on above: Performed By: #### 8 4511 #### [facility] [address] [place] [address], [place] Calcium [Mass/Vol] 8.9 mg/dL Normal 8.6-10.3 The [facility] Comment on above: Performed By: #### 8 4511 #### [facility] [address] [place] [address], [place] Chloride [Moles/Vol] 101 mmol/L Normal 98-107 The [facility] Comment on above: Performed By: #### 8 4511 #### [facility] [address] [place] [address], [place] CO2 [Moles/Vol] 22 mmol/L Normal 21-31 The [facility] Comment on above: Performed By: #### 8 4511 #### [facility] [address] [place] [address], [place] Creatinine [Mass/Vol] 1.90 mg/dL High 0.60-1.20 The [facility] Comment on above: Performed By: #### 8 4511 #### [facility] [address] [place] [id number], [place] EGFR 31 ml/min/1.73sq m Abnormal >60 The [facility] Comment on above: Result Comment: The [facility]'s estimated glomerular filtration rate (eGFR) will no [...] individuals. Performed By: #### 8 4511 #### [facility] [address] [place] [address], [facility] Glucose [Mass/Vol] 436 mg/dL High 70-100 The [facility] Comment on above: Performed By: #### 8 4511 #### [facility] [address] [place] [address], [facility] Potassium [Moles/Vol] 4.4 mmol/L Normal 3.5-5.1 [facility] Comment on above: Performed By: #### 8 4511 #### [facility] [address] [place] [address], [facility] Protein [Mass/Vol] 6.9 g/dL Normal 6.0-8.3 The [facility] Comment on above: Performed By: #### 8 4511 #### [facility] [address] [place] [address], [facility] Sodium [Moles/Vol] 136 mmol/L Normal 136-145 The [facility] Comment on above: Performed By: #### 8 4511 #### [facility] [address] [place] [address], [place] Urea nitrogen [Mass/Vol] 30 mg/dL High 7-25 The [facility] Comment on above: Performed By: #### 8 4511 #### [facility] [address] [place] [address], [facility] CT BRAIN WO CONTRASTon 11-21 CT BRAIN WO CONTRAST [facility] Department of Radiology [address] [place] [phone] Patient Name: RAQUEL VILA : 1965 Sex: F Age: Race: White Pt. Location: [id number] Patient Status: I Ordered Date: 11/20/2021 10:30:00 [...] Electronically signed: Aziza Funes M.D.. Transcribed by: [email or web address], User Resident: Electronically Signed by: AZIZA FUNES @ 11/20/2021 11:03 PM Normal The [facility] Comment on above: Order Comment: Other ELECTROLYTE PANELon 11-22-19 22 CARBON DIOXIDE CANCELED Normal The [facility] Comment on above: Result Comment: The released value 23 was canceled by [email or web address] on 11/21/2021 02:22 Performed By: #### 8 4511 #### [facility] [address] [place] [address], [place] CHLORIDE CANCELED Normal 98-107 The [facility] Comment on above: Result Comment: The released value 101 was canceled by [email or web address] on 11/21/2021 02:22 Performed By: #### 8 4511 #### [facility] [address] [place] [address], [place] POTASSIUM CANCELED Normal 3.5-5.1 [facility] Comment on above: Result Comment: The released value 4.4 was canceled by [email or web address] on 11/21/2021 02:22 Performed By: #### 8 4511 #### [facility] [address] [place] [address], [place] SODIUM CANCELED Normal 136-145 The [facility] Comment on above: Result Comment: The released value 135 was canceled by [email or web address] on 11/21/2021 02:22 Performed By: #### 8 4511 #### [facility] [address] [place] [address], [place] LACTATE BLOODon 11-21-2021 Lactate [Moles/Vol] 2.1 mmol/L Normal .5-2.2 [facility] Comment on above: Order Comment: No: D o not add to previous draw Performed By: #### 8 4511 #### [facility] [address] [place] [address], [place] Lactate [Moles/Vol] 2.1 mmol/L Normal .5-2.2 [facility] Comment on above: Order Comment: RESUL TS CHECKED AND CALLED. ACCURATELY READ BACK BY Jina TAVAREZ ED, RN Performed By: #### 8 4511 #### [facility] [address] [place] [address], [place] MAGNESIUM BLOODon 11-21-2021 Magnesium [Mass/Vol] 2.0 mg/dL Normal 1.9-2.7 The [facility] Comment on above: Order Comment: RESUL TS CHECKED AND CALLED. ACCURATELY READ BACK BY Jina TAVAREZ ED RN Performed By: #### 8 4511 #### [facility] [address] [place] [address], [place] OSMOLALITY BLOODon 2 Osmolality [Osmolality] 319 mosm/kg High 285-305 [facility] Comment on above: Order Comment: No: D o not add to previous draw Performed By: #### 8 4511 #### [facility] [address] [place] [address], [place] PHOSPHORUS BLOODon 2 Phosphate [Mass/Vol] 3.1 mg/dL Normal 2.5-5.0 [facility] Comment on above: Order Comment: RESUL TS CHECKED AND CALLED. ACCURATELY READ BACK BY Jina TAVAREZ ED RN Performed By: #### 8 4511 #### [facility] [address] [place] [address], [place] POC GLUCOSE LABon 11-21-2021 Glucose [Mass/Vol] 150 mg/dL High 70-100 The [facility] Comment on above: Performed By: #### 8 5499 #### [facility] [address] [place] [address], [place] Glucose [Mass/Vol] 149 mg/dL High 70-100 [facility] Comment on above: Performed By: #### 8 5499 #### [facility] [address] [place] [address], [place] Glucose [Mass/Vol] 178 mg/dL High 70-100 [facility] Comment on above: Performed By: #### 8 4511 #### [facility] [address] [place] [address], [place] Glucose [Mass/Vol] 173 mg/dL High 70-100 [facility] Comment on above: Performed By: #### 8 4511 #### [facility] [address] [place] [address], [place] Glucose [Mass/Vol] 158 mg/dL High 70-100 [facility] Comment on above: Performed By: #### 8 5499 #### [facility] [address] [place] [address], [place] Glucose [Mass/Vol] 165 mg/dL High 70-100 [facility] Comment on above: Performed By: #### 8 4511 #### [facility] [address] [place] [address], [place] Glucose [Mass/Vol] 185 mg/dL High 70-100 [facility] Comment on above: Performed By: #### 8 5499 #### [facility] [address] [place] [address], [place] Glucose [Mass/Vol] 200 mg/dL High 70-100 [facility] Comment on above: Performed By: #### 8 5499 ####[facility] [place] [address], [place] Glucose [Mass/Vol] 230 mg/dL High 70-100 [facility] Comment on above: Performed By: #### 8 4511 #### [facility] [address] [place] [address], [place] Glucose [Mass/Vol] 265 mg/dL High 70-100 [facility] Comment on above: Performed By: #### 8 5499 #### [facility] [address] [place] [address], [place] Glucose [Mass/Vol] 352 mg/dL High 70-100 [facility] Comment on above: Performed By: #### 8 5499 #### [facility] [address] [place] [address], [place] Glucose [Mass/Vol] 403 mg/dL High 70-100 [facility] Comment on above: Performed By: #### 8 5499 #### [facility] [address] [place] [address], [place] Glucose [Mass/Vol] 502 mg/dL Critically high 70-100 [facility] Comment on above: Order Comment: NOTE: Critical Value Performed By: #### 8 5499 #### [facility] [address] [place] [address], [place] Glucose [Mass/Vol] 490 mg/dL High 70-100 [facility] Comment on above: Performed By: #### 8 5499 #### [facility] [address] [place] [address], [place] PROCALCITONINon 11-21-2021 PROCALCITONIN 1.17 ng/mL High 0.00-0.10 [facility] Comment on above: Result Comment: Susp [...] PCT<0.5ng/mL Performed By: #### 8 4511 #### [facility] [address] [facility] [address] TRIGLYCERIDES BLOODon 2021 Triglyceride [Mass/Vol] 121 mg/dL Normal 40-149 The [facility] Comment on above: Order Comment: RESUL TS CHECKED AND CALLED. ACCURATELY READ BACK BY Jina TAVAREZ ED RN Result Comment: TRIG LYCERIDE REFERENCE RANGE: 20 YEARS AND OLDER CARDIOVASCULAR RISK LESS THAN 150 mg/dl LOW RISK 150 TO 199 mg/dl BORDERLINE RISK 200 mg/dl AND GREATER HIGH RISK Performed By: #### 8 4511 #### [facility] [address] ACETONE SERUMon 11-20-2021 ACETONE Negative Normal NEGATIVE [facility] Comment on above: Performed By: #### V ITAD #### [facility] [address] [address] [address] Kelsie Dominguez ARTERIAL BLOOD GAS WITH ICAo n 11-20-2021 BASE EXCESS -4 mmol/L Low -2-3 The [facility] Comment on above: Order Comment: RESUL TS CHECKED AND CALLED. ACCURATELY READ BACK BY Jina TAVAREZ ED, RN Performed By: #### 8 4511 #### [facility] [address] DELIVERY SYSTEM[employer] VENTILATOR Normal The [facility] Comment on above: Order Comment: RESUL TS CHECKED AND CALLED. ACCURATELY READ BACK BY Jina TAVAREZ ED, RN Performed By: #### 8 4511 #### [facility] [address] [place] [address], [facility] FIO2 100 % Normal [facility] Comment on above: Order Comment: RESUL TS CHECKED AND CALLED. ACCURATELY READ BACK BY Jina TAVAREZ ED, RN Performed By: #### 8 4511 #### [facility] [address] [place] [address], [facility] HCO3 (Bld) [Moles/Vol] 23 mmol/L Normal 21-28 [facility] Comment on above: Order Comment: RESUL TS CHECKED AND CALLED. ACCURATELY READ BACK BY Jina TAVAREZ ED RN Performed By: #### 8 4511 #### [facility] [address] [place] [address], [facility] IONIZED CALCIUM 1.13 mmol/L Normal 1.13-1.32 The [facility] Comment on above: Order Comment: RESUL TS CHECKED AND CALLED. ACCURATELY READ BACK BY Jina TAVAREZ ED RN Performed By: #### 8 4511 #### [facility] [address] [place] [address], [facility] MIN VOLUME 11.0 Normal [facility] Comment on above: Order Comment: RESUL TS CHECKED AND CALLED. ACCURATELY READ BACK BY Jina TAVAREZ ED RN Performed By: #### 8 4511 #### [facility] [address] [facility] [place] [place] [address], [facility] MODALITY AC VC Normal [facility] Comment on above: Order Comment: RESUL TS CHECKED AND CALLED. ACCURATELY READ BACK BY Jina TAVAREZ ED RN Performed By: #### 8 4511 #### [facility] [address] [place] [address], [facility] Oxygen (Bld) [Partial pressure] 68 mm[Hg] Low 83-108 [facility] Comment on above: Order Comment: RESUL TS CHECKED AND CALLED. ACCURATELY READ BACK BY Jina TAVAREZ ED RN Performed By: #### 8 4511 #### [facility] [address] [place] [address], [facility] Oxygen saturation in Blood 91.7 % Low 94.0-97.0 [facility] Comment on above: Order Comment: RESUL TS CHECKED AND CALLED. ACCURATELY READ BACK BY Jina TAVAREZ ED RN Performed By: #### 8 4511 #### [facility] [address] [place] [address], [facility] PCO2 52 mmHg High 35-45 [facility] Comment on above: Order Comment: RESUL TS CHECKED AND CALLED. ACCURATELY READ BACK BY Jina TAVAREZ ED RN Performed By: #### 8 4511 #### [facility] [address] [place] [address], [facility] PEEP 10.0 CMH20 Normal [facility] Comment on above: Order Comment: RESUL TS CHECKED AND CALLED. ACCURATELY READ BACK BY Jina TAVAREZ ED RN Performed By: #### 8 4511 #### [facility] [address] [place] [address], [facility] pH (Bld) 7.26 [pH] Low 7.35-7.45 [facility] Comment on above: Order Comment: RESUL TS CHECKED AND CALLED. ACCURATELY READ BACK BY Jina TAVAREZ ED RN Performed By: #### 8 4511 #### [facility] [address] [place] [address], [facility] Respiratory rate 24 /min Normal The [facility] Comment on above: Order Comment: RESUL TS CHECKED AND CALLED. ACCURATELY READ BACK BY Jina TAVAREZ ED RN Performed By: #### 8 4511 #### [facility] [address] [place] [address], [facility] TIDAL VOLUME (VT) CC 450 Normal [facility] Comment on above: Order Comment: RESUL TS CHECKED AND CALLED. ACCURATELY READ BACK BY Jina TAVAREZ ED RN Performed By: #### 8 4511 #### [facility] [address] [place] [address], [place] BASE EXCESS -10 mmol/L Low -2-3 [facility] Comment on above: Performed By: #### 8 4511 #### [facility] [address] [place] [address], [facility] DELIVERY SYSTEMS VENTILATOR Normal The [facility] Comment on above: Performed By: #### 8 2641 #### [facility] [address] [place] [address], [place] FIO2 60 % Normal [facility] Comment on above: Performed By: #### 8 4511 #### [facility] [address] [place] [address], [place] HCO3 (Bld) [Moles/Vol] 20 mmol/L Low 21-28 [facility] Comment on above: Result Comment: RESU LTS CHECKED AND CALLED. ACCURATELY READ BACK BY Jina TAVAREZ ED, RN Performed By: #### 8 4511 #### [facility] [address] [place] [address], [place] IONIZED CALCIUM 1.13 mmol/L Normal 1.13-1.32 [facility] Comment on above: Performed By: #### 8 4511 #### [facility] [address] [place] [address], [place] MIN VOLUME 6.8 Normal [facility] Comment on above: Performed By: #### 8 4511 #### [facility] [address] [place] [address], [place] MODALITY AV VC Normal [facility] Comment on above: Performed By: #### 8 4511 #### [facility] [address] [place] [address], [place] Oxygen (Bld) [Partial pressure] 65 mm[Hg] Low 83-108 [facility] Comment on above: Performed By: #### 8 4511 #### [facility] [address] [place] [address], [place] Oxygen saturation in Blood 87.0 % Critically low 94.0-97.0 [facility] Comment on above: Performed By: #### 8 4511 #### [facility] [address] [place] [address], [place] PCO2 59 mmHg Critically high 35-45 The [facility] Comment on above: Performed By: #### 8 4511 #### [facility] [address] [place] [address], [facility] PEEP 8.0 CMH20 Normal [facility] Comment on above: Performed By: #### 8 4511 #### [facility] [address] [place] [address], [facility] pH (Bld) 7.14 [pH] Critically low 7.35-7.45 The [facility] Comment on above: Result Comment: RESU LTS CHECKED AND CALLED. ACCURATELY READ BACK BY Jina TAVAREZ ED, RN Performed By: #### 8 4511 #### [facility] [address] [place] [address], [facility] Respiratory rate 14 /min Normal [facility] Comment on above: Performed By: #### 8 4511 #### [facility] [address] [place], [place] [id number] [place] [address] TIDAL VOLUME (VT) CC 500 Normal [facility] Comment on above: Performed By: #### 8 4511 #### [facility] [address] [facility] [place] [address], [facility] BASIC METABOLIC PANELon 08-0 Calcium [Mass/Vol] 8.5 mg/dL Low 8.6-10.3 [facility] Comment on above: Performed By: #### 8 5499 #### [facility] [address] [place] [address], [facility] Chloride [Moles/Vol] 102 mmol/L Normal 98-107 [facility] Comment on above: Performed By: #### 8 5499 #### [facility] [address] [place] [address], [place] CO2 [Moles/Vol] 19 mmol/L Low 21-31 The [facility] Comment on above: Performed By: #### 8 5499 #### [facility] [address] [place] [address], [facility] Creatinine [Mass/Vol] 1.89 mg/dL High 0.60-1.20 [facility] Comment on above: Performed By: #### 8 5499 #### [facility] [address] [place] [address], [facility] EGFR 31 ml/min/1.73sq m Abnormal >60 The [facility] Comment on above: Result Comment: The [facility]'s estimated glomerular filtration rate (eGFR) will no [...] individuals. Performed By: #### 8 [id number] #### [facility] [address] [facility] [place] [address], [facility] Glucose [Mass/Vol] 465 mg/dL High 70-100 [facility] Comment on above: Performed By: #### 8 5499 #### [facility] [address] [facility] [place] [address], [facility] Potassium [Moles/Vol] 6.2 mmol/L Critically high 3.5-5.1 [facility] Comment on above: Result Comment: M-CR ITICAL RESULT(S) REVIEWED, CALLED TO AND READ BACK BY Alexandra Vásquez RN at 2021. M-No hemolysis. Performed By: #### 8 5499 #### [facility] [address] [facility] [place] [address], [facility] Sodium [Moles/Vol] 135 mmol/L Low 136-145 [facility] Comment on above: Performed By: #### 8 5499 #### [facility] [address] [place] [address], [facility] Urea nitrogen [Mass/Vol] 28 mg/dL High 7-25 [facility] Comment on above: Performed By: #### 8 [id number] #### [facility] [address] [facility] [place] [address], [facility] BLOOD GASES BTYon 11-20-2021 02 MODE VENTILATOR Normal [facility] Comment on above: Performed By: #### V ITAD #### [facility] [address] [address] [address] Kelsie Dominguez ALLENS TEST Positive Normal [facility] Comment on above: Performed By: #### V ITAD #### [facility] [address] [address] [address] Kelsie Dominguez Base excess Calc (Bld) [Moles/Vol] -14.24415 mmol/L Critically low -2.0-2.0 [facility] Comment on above: Performed By: #### V ITAD #### [facility] [address] [place] [address] Dr. Kelsie Dominguez BIPAP PRESSURE Normal [facility] [place] Comment on above: Performed By: #### V ITAD #### [facility] [address] [address] [address] Kelsie Dominguez CO2 [Moles/Vol] 34.7 mmol/L Critically high 23.0-28.0 [facility] Comment on above: Performed By: #### V ITAD #### [facility] [address] [address] [address] Kelsie Dominguez CPAP Normal [facility] Comment on above: Performed By: #### V ITAD #### [facility] [address] [address] [address] Kelsie Dominguez FIO2 100.00 % Normal [facility] Comment on above: Performed By: #### V ITAD #### [facility] [address] [place] [address] Dr. Kelsie Dominguez HCO3 (Bld) [Moles/Vol] 13.8 mmol/L Critically low 22.0-26.0 [facility] Comment on above: Performed By: #### V ITAD #### [facility] [address] [address] [address] Kelsie Dominguez LPM [facility] Comment on above: Performed By: #### V ITAD #### [facility] [address] [address] [address] Kelsie Dominguez MINUTE VOLUME Normal [facility] Comment on above: Performed By: #### V ITAD #### [facility] [address] [address] [address] Kelsie Dominguez Oxygen (Bld) [Partial pressure] 122.0 mm[Hg] Critically high 80.0-100.0 [facility] Comment on above: Performed By: #### V ITAD #### [facility] [address] [place] [address] Dr. Kelsie Dominguez Oxygen saturation in Blood 97.0 % Normal 95.0-100.0 [facility] Comment on above: Performed By: #### V ITAD #### [facility] [address] [place] [address] Dr. Kelsie Dominguez PCO2 53.1 mmHg Critically high 35.0-45.0 [facility] Comment on above: Performed By: #### V ITAD #### [facility] [address] [place] [address] Dr. Kelsie Dominguez PEEP 8 [facility] Comment on above: Performed By: #### V ITAD #### [facility] [address] [address] [address] Kelsie Dominguez pH (Bld) 7.084 [pH] Critically low 7.350-7.450 [facility] Comment on above: Performed By: #### V ITAD #### [facility] [address] [place] [address] Dr. Kelsie Dominguez PIP [facility] Comment on above: Performed By: #### V ITAD #### [facility] [address] [place] [address] Dr. Kelsie Dominguez PS 14 [facility] Comment on above: Performed By: #### V ITAD #### [facility] [address] [place] [address] Dr. Kelsie Dominguez PUNCTURE SITE RR Normal [facility] Comment on above: Performed By: #### V ITAD #### [facility] [address] [place] [address] Dr. Kelsie Dominguez RATE 20 bpm Normal [facility] Comment on above: Performed By: #### V ITAD #### [facility] [address] [address] [address] Kelsie Dominguez VENT MODE PSIMV [facility] Comment on above: Performed By: #### V ITAD #### [facility] [address] [place] [address] Dr. Kelsie Dominguez VT [facility] Comment on above: Performed By: #### V ITAD #### [facility] [address] [place] [address] Dr. Kelsie Dominguez BNPon 11-20-2021 Natriuretic peptide B (Bld) [Mass/Vol] 2560.0 pg/mL Critically high <=900.0 [facility] Comment on above: Performed By: #### C MP, CMADM, BNP #### [facility] [address] [place] [address] Dr. Kelsie Dominguez CARDIAC JANIA ADMITon 022 CK [Catalytic activity/Vol] 93 U/L Normal 26-192 [facility] Comment on above: Performed By: #### C MP, CMADM, BNP #### [facility] [address] [place] [address] Dr. Kelsie Dominguez CK.MB [Mass/Vol] 2.87 ng/mL Normal <=3.[address] [facility] Comment on above: Performed By: #### C MP, CMADM, BNP #### [facility] [address] [place] [address] Dr. Kelsie Dominguez HSTROP 12.2 pg/mL Normal 4.0-51.3 [facility] Comment on above: Result Comment: CUT- OFF POINTS HAVE BEEN ESTABLISHED BASED ON THE FOURTH UNIVERSAL DEFINITIONS OF MYOCARDIAL INFARCTION. THE UPPER REFERENCE LIMIT (URL) OF TROPONIN, DEFINED THE 99TH PERCENTILE OF cTnI DISTRIBUTION IN A REFERENCE POPULATION, HAS BEEN CONFIRMED THE DECISION THRESHOLD FOR NM DIAGNOSIS. Performed By: #### C MP, CMADM, BNP #### [facility] [address] [place] [address] Dr. Kelsie Dominguez VARGAS 112 ng/mL Critically high 9-82 [facility] Comment on above: Performed By: #### C MP, CMADM, BNP #### [facility] [address] [place] [address] Dr. Kelsie Dominguez CBC W MANUAL DIFFon 11-21-19 22 ATYPICAL LYMPH # Normal [facility] Comment on above: Performed By: #### C LIBERTAD #### [facility] [address] [place] [address] Dr. Kelsie Dominguez ATYPICAL LYMPH % Normal [facility] Comment on above: Performed By: #### C BCMAN #### [facility] [address] [place] [address] Dr. Kelsie Dominguez BAND # 0.1 103/ul Normal 0.0-0.3 [facility] Comment on above: Performed By: #### C LIBERTAD #### [facility] [address] [place] [address] Dr. Kelsie Dominguez BAND % 1 % Normal 0-5 [facility] Comment on above: Performed By: #### C BCMAN #### [facility] [address] [place] [address] Dr. Kelsie Dominguez BASOM # 0.00 103/ul Normal 0.00-0.10 [facility] Comment on above: Performed By: #### C BCMAN #### [facility] [address] [place] [address] Dr. Kelsie Dominguez BASOM % 0.0 % Critically low 0.2-2.0 The [facility] Comment on above: Performed By: #### C BCMAN #### [facility] [address] [place] [address] Dr. Kelsie Dominguez BLAST # Normal [facility] Comment on above: Performed By: #### C BCMAN #### [facility] [address] [address] [address] Kelsie Dominguez BLAST % Normal [facility] Comment on above: Performed By: #### C BCKASEY #### [facility] [address] [place] [address] Dr. Kelsie Dominguez CORRECTED WBC Normal 4.0-11.0 [facility] Comment on above: Performed By: #### C BCKASEY #### [facility] [address] [place] [address] Dr. Kelsie Dominguez EOS # 0.00 103/ul Normal 0.00-0.70 [facility] Comment on above: Performed By: #### C BCKASEY #### [facility] [address] [place] [address] Dr. Kelsie Dominguez EOS% 0.0 % Critically low 0.9-7.0 [facility] [place] Comment on above: Performed By: #### C BCKASEY #### [facility] [address] [place] [address] Dr. Kelsie Dominguez HCT 43.8 % Normal 36.0-48.0 [facility] Comment on above: Performed By: #### C BCKASEY #### [facility] [address] [place] [address] Dr. Kelsie Dominguez HGB 13.3 g/dl Normal 12.0-16.0 [facility] Comment on above: Performed By: #### C LIBERTAD #### [facility] [address] [place] [address] Dr. Kelsie Dominguez LYMPHM # 3.78 103/ul Normal 1.20-3.80 [facility] Comment on above: Performed By: #### C BCKASEY #### [facility] [address] [place] [address] Dr. Kelsie Dominguez LYMPHM% 27.0 % Normal 20.5-60.0 [facility] Comment on above: Performed By: #### C BCKASEY #### [facility] [address] [place] [address] Dr. Kelsie Dominguez MCH 31.4 pg Normal 26.7-34.0 [facility] Comment on above: Performed By: #### C BCKASEY #### [facility] [address] [address] [address] Kelsie Dominguez MCHC 30.4 g/dl Normal 29.9-35.2 [facility] Comment on above: Performed By: #### C LIBERTAD #### [facility] [address] [address] [address] eKlsie Dominguez MCV 103.3 fL Critically high 81.0-99.0 [facility] Comment on above: Performed By: #### C LIBERTAD #### [facility] [address] [place] [address] Dr. Kelsie Dominguez METAMYELOCYTE # Normal [facility] Comment on above: Performed By: #### C LIBERTAD #### [facility] [address] [place] [address] Dr. Kelsie Dominguez METAMYELOCYTE % Normal [facility] Comment on above: Performed By: #### C LIBERTAD #### [facility] [address] [place] [address] Dr. Kelsie Dominguez MONOM# 1.12 103/ul Critically high 0.30-0.80 [facility] Comment on above: Performed By: #### C LIBERTAD #### [facility] [address] [place] [address] Dr. Kelsie Dominguez MONOM% 8.0 % Normal 1.7-12.0 [facility] Comment on above: Performed By: #### C LIBERTAD #### [facility] [address] [place] [address] Dr. Kelsie Dominguez MPV 9.2 fL Critically low 9.5-13.5 [facility] [place] Comment on above: Performed By: #### C LIBERTAD #### [facility] [address] [place] [address] Dr. Kelsie Dominguez MYELOCYTE # Normal [facility] Comment on above: Performed By: #### C LIBERTAD #### [facility] [address] [place] [address] Dr. Kelsie Dominguez MYELOCYTE % Normal [facility] Comment on above: Performed By: #### C LIBERTAD #### [facility] [address] [place] [address] Dr. Kelsie Dominguez NRBC Normal [facility] Comment on above: Performed By: #### C LIBERTAD #### [facility] [address] [place] [address] Dr. Kelsie Dominguez PLT 213 103/ul Normal 150-450 [facility] Comment on above: Performed By: #### C LIBERTAD #### [facility] [address] [place] [address] Dr. Kelsie Dominguez RBC 4.24 106/ul Normal 4.20-5.40 [facility] Comment on above: Performed By: #### C LIBERTAD #### [facility] [address] [place] [address] Dr. Kelsie Dominguez RDW 14.6 % Normal 11.0-15.0 [facility] Comment on above: Performed By: #### C LIBERTAD #### [facility] [address] [place] [address] Dr. Kelsie Dominguez SEG # 8.96 103/ul Critically high 1.40-6.50 [facility] Comment on above: Performed By: #### C LIBERTAD #### [facility] [address] [place] [address] Dr. Kelsie Dominguez SEG % 64.0 % Normal 43.0-75.0 [facility] Comment on above: Performed By: #### C LIBERTAD #### [facility] [address] [place] [address] Dr. Kelsie Dominguez WBC 14.0 103/ul Critically high 4.0-11.0 [facility] Comment on above: Performed By: #### C LIBERTAD #### [facility] [address] [place] [address] Dr. Kelsie Dominguez Covid-19 PCR ([facility])on SARS-CoV-2 (COVID-19) RNA SUZANNA+probe Ql (Unsp spec) Not detected Normal NOT DETECTED [facility] Comment on above: Result Comment: When diagnostic [...] for this test is supported by the [place] of [employer] and Human Service's declaration that [...] longer be used). Performed By: #### C BCMAN #### [facility] [address] [place] [address] Dr. Kelsie Dominguez D-DIMERon 11-20-2021 D-DIMER 2.80 mg/L FEU Critically high <=0.59 The [facility] Comment on above: Performed By: #### V ITAD #### [facility] [address] [place] [address] Dr. Kelsie Dominguez D-DIMER COMMENTS SEE BELOW Normal [facility] Comment on above: Result Comment: Incr [...] hospitalization. Performed By: #### V ITAD #### [facility] [address] [place] [address] Dr. Kelsie Dominguez LACTATE BLOODon 11-20-2021 Lactate [Moles/Vol] 5.2 mmol/L Critically high .5-2.2 [facility] Comment on above: Order Comment: RESUL TS CHECKED AND CALLED. ACCURATELY READ BACK BY Jina TAVAREZ ED RN Result Comment: M-CR ITICAL RESULT(S) REVIEWED, CALLED TO AND READ BACK BY Alexandra Vásquez RN at 2140. Performed By: #### 8 4511 #### [facility] [address] [place] [address], [place] LACTATE/LACTIC ACIDon 2021 Lactate [Moles/Vol] 12.3 mmol/L Critically high 0.4-1.9 [facility] Comment on above: Performed By: #### H H #### [facility] [address] [place], [place] [address] Dr. Kelsie Dominguez LIVER BATTERYon 11-20-2021 Albumin [Mass/Vol] 4.1 g/dL Normal 3.5-5.7 [facility] Comment on above: Performed By: #### 8 5499 #### [facility] [address] [place] [address], [place] ALKALINE PHOSPH 213 IU/L High 34-[address] [facility] Comment on above: Performed By: #### 8 5499 #### [facility] [address] [place] [address], [place] ALT [Catalytic activity/Vol] 437 U/L Critically high 7-52 [facility] Comment on above: Performed By: #### 8 5499 #### [facility] [address] [facility] [place] [address], [place] AST [Catalytic activity/Vol] 717 U/L High 13-39 [facility] Comment on above: Performed By: #### 8 5499 #### [facility] [address] [place] [address], [place] Bilirubin [Mass/Vol] 1.7 mg/dL High 0.3-1.0 [facility] Comment on above: Performed By: #### 8 5499 #### [facility] [address] [place] [address], [place] Bilirubin.direct [Mass/Vol] 0.9 mg/dL High 0.0-0.2 [facility] Comment on above: Performed By: #### 8 5499 #### [facility] [address] [place] [address], [facility] Protein [Mass/Vol] 6.8 g/dL Normal 6.0-8.3 [facility] Comment on above: Performed By: #### 8 5499 #### [facility] [address] [place] [address], [facility] MAGNESIUM BLOODon 11-20-2021 Magnesium [Mass/Vol] 2.1 mg/dL Normal 1.9-2.7 [facility] Comment on above: Performed By: #### 8 5499 #### [facility] [address] [place] [address], [facility] PHOSPHORUS BLOODon Phosphate [Mass/Vol] 7.1 mg/dL High 2.5-5.0 [facility] Comment on above: Performed By: #### 8 5499 #### [facility] [address] [place] [address], [facility] POINT OF CARE GLUCOSEon Glucose [Mass/Vol] 477 mg/dL Critically high 74-106 [facility] Comment on above: Performed By: #### C LIBERTAD #### [facility] [address] [address] [address] Kelsie Dominguez PORTABLE CHEST 1 VIEWon PORTABLE CHEST 1 VIEW [facility] Department of Radiology [address] [place] [address] Patient Name: RAQUEL VILA : 1965 Sex: F Age: Race: White Pt. Location: [facility] Patient Status: E Ordered Date: 11/20/2021 8:35:00 [...] Electronically signed: Aziza Funes M.D.. Transcribed by: [email or web address], User Resident: Electronically Signed by: AZIZA FUNES @ 11/20/2021 09:02 PM Normal [facility] Comment on above: Order Comment: Check E.T. Position PROF 14(COMP METB)on 022 Albumin [Mass/Vol] 3.4 g/dL Normal 3.4-5.0 [facility] Comment on above: Performed By: #### C MP, CMADM, BNP #### [facility] [address] [place] [address] Dr. Kelsie Dominguez Albumin/Globulin [Mass ratio] 0.9 {ratio} Normal [facility] Comment on above: Performed By: #### C MP, CMADM, BNP #### [facility] [address] [place], [place] [address] Dr. Kelsie Dominguez ALP [Catalytic activity/Vol] 161 U/L Critically high 46-116 [facility] Comment on above: Performed By: #### C MP CMADM, BNP #### [facility] [address] [place] [address] Dr. Kelsie Dominguez ALT [Catalytic activity/Vol] 91 U/L Critically high 14-59 [facility] Comment on above: Performed By: #### C MP, CMADM, BNP #### [facility] [address] [place] [address] Dr. Kelsie Dominguez Anion gap [Moles/Vol] 29.0 mmol/L Normal [facility] Comment on above: Performed By: #### C MP CMADM, BNP #### [facility] [address] [place] [address] Dr. Kelsie Dominguez AST [Catalytic activity/Vol] 134 U/L Critically high 15-37 [facility] Comment on above: Performed By: #### C MP CMADM, BNP #### [facility] [address] [place] [address] Dr. Kelsie Dominguez Bilirubin [Mass/Vol] 1.0 mg/dL Normal 0.2-1.0 [facility] Comment on above: Performed By: #### C EMILY CMADM, BNP #### [facility] [address] [place] [address] Dr. Kelsie Dominguez Calcium [Mass/Vol] 8.9 mg/dL Normal 8.5-10.1 [facility] Comment on above: Performed By: #### C MP CMADM, BNP #### [facility] [address] [place] [address] Dr. Kelsie Dominguez Chloride [Moles/Vol] 98 mmol/L Normal 98-107 [facility] Comment on above: Performed By: #### C MP CMADM, BNP #### [facility] [address] [place] [address] Dr. Kelsie Dominguez CO2 [Moles/Vol] 15.6 mmol/L Critically low 21.0-32.0 [facility] Comment on above: Performed By: #### C MP CMADM, BNP #### [facility] [address] [address] [address] Kelsie Dominguez Creatinine [Mass/Vol] 2.18 mg/dL Critically high 0.55-1.02 [facility] Comment on above: Performed By: #### C MP, CMADM, BNP #### [facility] [address] [address] [address] Kelsie Dominguez EGFR-AF FINNISH 28 mL/min/1.73m2 Critically low >=60 [facility] Comment on above: Performed By: #### C MP, CMADM, BNP #### [facility] [address] [address] [address] Kelsie Dominguez EGFR-NON AF FINNISH 23 mL/min/1.73m2 Critically low >=60 [facility] Comment on above: Performed By: #### C MP, CMADM, BNP #### [facility] [address] [address] [address] Kelsie Dominguez Globulin (S) [Mass/Vol] 3.9 g/dL Normal [facility] Comment on above: Performed By: #### C MP, CMADM, BNP #### [facility] [address] [address] [address] Kelsie Dominguez Glucose [Mass/Vol] 587 mg/dL Critically high 74-106 [facility] Comment on above: Performed By: #### C MP, CMADM, BNP #### [facility] [address] [address] [address] Kelsie Dominguez Potassium [Moles/Vol] 6.6 mmol/L Critically high 3.5-5.1 [facility] Comment on above: Performed By: #### C MP, CMADM, BNP #### [facility] [address] [address] [address] Kelsie Dominguez Protein [Mass/Vol] 7.3 g/dL Normal 6.4-8.2 [facility] Comment on above: Performed By: #### C MP, CMADM, BNP #### [facility] [address] [address] [address] Kelsie Dominguez Sodium [Moles/Vol] 136 mmol/L Normal 136-145 [facility] Comment on above: Performed By: #### C MP, CMADM, BNP #### [facility] [address] [place] [address] Dr. Kelsie Dominguez Urea nitrogen [Mass/Vol] 25.0 mg/dL Critically high 7.0-18.0 [facility] Comment on above: Performed By: #### C MP, CMADM, BNP #### [facility] [address] [place] [address] Dr. Kelsie Dominguez Urea nitrogen/Creatinine [Mass ratio] 11.5 mg/mg Normal [facility] Comment on above: Performed By: #### C MP, CMADM, BNP #### [facility] [address] [place] [address] Dr. Kelsie Dominguez PROTIMEon 11-20-2021 INR Coag (PPP) [Relative time] 1.06 {INR} Normal [facility] Comment on above: Performed By: #### V ITAD #### [facility] [address] [place] [address] Dr. Kelsie Dominguez INR GUIDELINES SEE BELOW Normal [facility] Comment on above: Result Comment: EDDI RED INR: 2.0 - 3.0 CONDITIONS NOT LISTED BELOW 2.5 - 3.5 FOR PROSTHETIC HEART VALVE REPLACEMENT 2.5 - 3.5 RECURRENT THROMBOSIS Performed By: #### V ITAD #### [facility] [address] [place] [address] Dr. Kelsie Dominguez PT Coag (PPP) [Time] 11.4 s Normal 9.0-11.6 [facility] Comment on above: Performed By: #### V ITAD #### [facility] [address] [place] [address] Dr. Kelsie Dominguez PTTon 11-20-2021 aPTT Coag (Bld) [Time] 29.0 s Normal 22.3-36.2 [facility] Comment on above: Performed By: #### V ITAD #### [facility] [address] [place] [address] Dr. Kelsie Dominguez TROPONIN-Ion 11-20-2021 Troponin I.cardiac [Mass/Vol] 0.01 ng/mL Normal 0.00-0.04 [facility] Comment on above: Result Comment: REFE TIMI RANGES: 0.00 - 0.04 ng/ml NORMAL 0.05 - 0.50 ng/ml INDETERMINATE > 0.50 ng/ml CONSISTENT WITH AN M.I. Performed By: #### 8 5499 #### [facility] [address] [place] [address], [facility] URINALYSISon 11-20-2021 Appearance (U) CLEAR Normal CLEAR The [facility] Comment on above: Order Comment: Yes: Add to Previous draw if able Performed By: #### 1 0008 #### [facility] [address] [place] [address], [facility] Bilirubin Ql (U) Negative Normal NEGATIVE [facility] Comment on above: Order Comment: Yes: Add to Previous draw if able Performed By: #### 1 0008 #### [facility] [address] [place] [address], [place] Color (U) YELLOW Normal YELLOW [facility] Comment on above: Order Comment: Yes: Add to Previous draw if able Performed By: #### 1 0008 #### [facility] [address] [place] [address], [facility] EPIS NONE SEEN Normal FEW,OCC,NONE SEEN [facility] Comment on above: Order Comment: Yes: Add to Previous draw if able Performed By: #### 1 0008 #### [facility] [address] [place] [address], [place] Glucose Ql (U) >=1000 Abnormal NEGATIVE The [facility] Comment on above: Order Comment: Yes: Add to Previous draw if able Performed By: #### 1 0008 #### [facility] [address] [place] [address], [place] Hemoglobin Ql (U) SMALL Abnormal NEGATIVE The [facility] Comment on above: Order Comment: Yes: Add to Previous draw if able Performed By: #### 1 0008 #### [facility] [address] [place] [address], [facility] KETONE Negative Normal NEGATIVE The [facility] Comment on above: Order Comment: Yes: Add to Previous draw if able Performed By: #### 1 0008 #### [facility] [address] [place] [address], [facility] LEUK DORIS Negative Normal NEGATIVE The [facility] Comment on above: Order Comment: Yes: Add to Previous draw if able Performed By: #### 1 0008 #### [facility] [address] [facility] [address] MUCUS THREADS OCC Abnormal NONE SEEN The [place] Comment on above: Order Comment: Yes: Add to Previous draw if able Performed By: #### 1 0008 #### [facility] [address] [facility]. [address] Nitrite Ql (U) Negative Normal NEGATIVE The [facility] Comment on above: Order Comment: Yes: Add to Previous draw if able Performed By: #### 1 0008 #### [facility] [address] [facility]. [address] pH (U) 6.0 [pH] Normal 5.0-8.0 The [facility] Comment on above: Order Comment: Yes: Add to Previous draw if able Performed By: #### 1 0008 #### [facility] [address] [place]. [address] Protein Ql (U) 30 Abnormal NEGATIVE The [facility] Comment on above: Order Comment: Yes: Add to Previous draw if able Performed By: #### 1 0008 #### [facility] [address] RBC 0-2 Abnormal NONE SEEN The [facility] Comment on above: Order Comment: Yes: Add to Previous draw if able Performed By: #### 1 0008 #### [facility] [address] [place] [address], [facility] SPEC GRAV 1.015 Normal 1.015-1.020 The [facility] Comment on above: Order Comment: Yes: Add to Previous draw if able Performed By: #### 1 0008 #### [facility] [address] [place] [address], [facility] WBC UA 0-2 Abnormal NONE SEEN The [facility] Comment on above: Order Comment: Yes: Add to Previous draw if able Performed By: #### 1 0008 #### [facility] [address] [place] [address], [facility] XR CHEST 1 Von 11-20-2021 [...] by: AMARA DAVISON Date: 2021-11-20 17:47 Normal [facility] ECHOCARDIO M/2D COMPLETEon 0 10-02-2021 ECHOCARDIO M/2D COMPLETE Patient: RAQUEL VILA Exam Date: 10/02/2021 : 1965 Gender:F Ordering : DR KATHERYN NIXON M.D. Admission #: [id number] Family : SHAIKH Silvino JACQUES . Order #: [id number] CLICK HERE TO VIEW EXAM ECHOCARDIOGRAM REPORT [...] on 10/03/2021 at 18:42 Normal [facility] US ST HEAD_NECKon 09-17-[address] HEAD_NECK [...] AMARA DAVISON Date: 2021-09-17 09:22 Normal [facility] THYROIDon 09-17-2021 US THYROID EXAMINATION: US THYROID [...] one year is recommended. TR 4: The [employer] TI-RADS committee's white paper recommendations for thyroid lesions classified as TR4 (moderately suspicious) are listed below: > 1.0 cm. Follow-up ultrasound in 1, 2, 3, and 5 years. > 1.5 cm. FNA. J. Am Alfonso Radiol 2017;14:587-595. Electronically authenticated by: AMARA DAVISON Date: 2021-09-17 09:29 Normal [facility] Vital Signs Date Time Vital Sign Value Performing Clinician Facility 10-15-2023 15:34-0400 Body height 162.56 cm [facility] 10-15-2023 15:34-0400 Body mass index (BMI) [Ratio] 39.6 kg/m2 [facility] 10-15-2023 15:34-0400 Body temperature 97.8 [degF] [facility] 10-15-2023 15:34-0400 Body weight 104.83 kg [facility] 10-15-2023 15:34-0400 Diastolic blood pressure 71 mm[Hg] [facility] 10-15-2023 15:34-0400 Heart rate 85 /min [facility] 10-15-2023 15:34-0400 Respiratory rate 18 /min [facility] 10-15-2023 15:34-0400 SaO2% (BldA) [Mass fraction] 96 % [facility] 10-15-2023 15:34-0400 Systolic blood pressure 135 mm[Hg] [facility] 02-08-2022 15:00-0400 Body height 165.1 cm Margarita Pino Other [facility] Other 02-08-2022 15:00-0400 Body mass index (BMI) [Ratio] 42.66 kg/m2 Margarita Truman Other [facility] Other 02-08-2022 15:00-0400 Body temperature 96.6 [degF] Margarita Truman Other [facility] Other 02-08-2022 15:00-0400 Body weight 116.3 kg Margarita Truman Other [facility] Other 02-08-2022 15:00-0400 Diastolic blood pressure 76 mm[Hg] Margarita Truman Other [facility] Other 02-08-2022 15:00-0400 Respiratory rate 18 /min Margarita Truman Other [facility] Other 02-08-2022 15:00-0400 SaO2% (BldA) [Mass fraction] 96 % Margarita Truman Other [facility] Other 02-08-2022 15:00-0400 Systolic blood pressure 114 mm[Hg] Margarita Truman Other [facility] Other 12-06-2021 12:35-0400 Body height 165.1 cm Isaias Pappasaker Other [facility] Other 12-06-2021 12:35-0400 Body mass index (BMI) [Ratio] 43.26 kg/m2 Isaias Gomez Other [facility] Other 12-06-2021 12:35-0400 Body temperature 97.3 [degF] Isaias Gomez Other [facility] Other 12-06-2021 12:35-0400 Body weight 117.94 kg Isaias Gomez Other [facility] Other 12-06-2021 12:35-0400 Respiratory rate 18 /min Isaias Gomez Other [facility] Other 12-06-2021 12:35-0400 SaO2% (BldA) [Mass fraction] 93 % Isaias Gomez Other [facility] Other 10-10-2021 14:05-0400 Blood Pressure Location [facility] [place] 10-10-2021 14:05-0400 Diastolic blood pressure 78 mm[Hg] Nalini NILL [facility] [place] 10-10-2021 14:05-0400 Heart rate 72 /min Nalini NILL [facility] [place] 10-10-2021 14:05-0400 Respiratory rate 16 /min Nalini NILL [facility] [place] 10-10-2021 14:05-0400 Systolic blood pressure 120 mm[Hg] Nalini NILL [facility] [place] 08-08-2021 16:00-0400 Body height 165.1 cm Margarita Truman Other [facility] Other 08-08-2021 16:00-0400 Body mass index (BMI) [Ratio] 48.89 kg/m2 Margarita Truman Other [facility] Other 08-08-2021 16:00-0400 Body temperature 97.8 [degF] Margarita Truman Other [facility] Other 08-08-2021 16:00-0400 Body weight 133.27 kg Margarita Truman Other [facility] Other 08-08-2021 16:00-0400 Diastolic blood pressure 78 mm[Hg] Margarita Truman Other [facility] Other 08-08-2021 16:00-0400 Respiratory rate 18 /min Margarita Truman Other [facility] Other 08-08-2021 16:00-0400 SaO2% (BldA) [Mass fraction] 95 % Margarita Truman Other [facility] Other 08-08-2021 16:00-0400 Systolic blood pressure 122 mm[Hg] Margarita Truman Other [facility] Other Encounters Encounter Date Encounter Type Care Provider Facility Start: 01-09-2024 End: 01-09-2024 ambulatory [facility] Start: 12-18-2023 End: 12-18-2023 ambulatory GRUETLI LAAGER R [facility] Start: 12-18-2023 End: 12-18-2023 ambulatory THAO ABEBE Not Available Start: 12-03-2023 End: 12-03-2023 ambulatory [facility] Start: 11-12-2023 End: 11-12-2023 ambulatory GRUETLI LAAGER R [facility] Start: 10-18-2023 End: 10-18-2023 ambulatory [facility] Start: 10-15-2023 End: 10-15-2023 ambulatory [facility] Work Phone: Start: 10-15-2023 End: 10-15-2023 Patient encounter procedure [facility] Work Phone: Start: 10-08-2023 End: 10-08-2023 ambulatory TILLMAN FAWWAD Not Available Start: 10-01-2023 End: 10-01-2023 ambulatory RIKKI R [facility] Start: 09-13-2023 ambulatory TILLMAN FAWNCD [facility] Start: 09-09-2023 End: 09-09-2023 ambulatory TILLMAN FAWWAD Not Available Start: 08-19-2023 End: 08-19-2023 ambulatory TILLMAN FAWWAD Not Available Start: 08-12-2023 End: 08-12-2023 ambulatory TILLMAN FAWWAD Not Available Start: 07-29-2023 ambulatory TILLMAN FAWWAD [facility] Start: 07-25-2023 End: 07-25-2023 ambulatory [facility] Start: 06-13-2023 End: 06-13-[address] Start: 05-30-2023 End: 05-30-2023 ambulatory [facility] Start: 05-24-2023 End: 05-24-2023 ambulatory [facility] Start: 05-07-2023 End: 05-07-2023 ambulatory TILLMAN FAWWAD Not Available Start: 04-25-2023 End: 04-25-2023 ambulatory [facility] Start: 12-07-2022 End: 12-07-2022 ambulatory [facility] Start: 11-01-2022 ambulatory Nalini NILL Facility:[facility] Start: 08-07-2022 End: 08-08-2022 ambulatory MARGARITA TRUMAN Facility:[facility] Start: 06-14-2022 End: 06-14-2022 ambulatory Margarita Truman Other [facility] Other Start: 06-14-2022 Telephone encounter Margarita Truman [facility] Start: 05-31-2022 End: 05-31-2022 ambulatory Givoana Crum Other [facility] Other Start: 05-31-2022 Telephone encounter Giovana Crum [facility] Start: 03-23-2022 End: 03-31-2022 ambulatory SHAIKH Ashley JACQUES Facility:[facility] Start: 02-14-2022 End: 02-15-[address] DOCTOR SHAHID Facility:[facility] Start: 02-08-2022 End: 02-08-2022 ambulatory Magrarita Truman Other [facility] Other Start: 02-08-2022 Office outpatient visit 25 minutes Margarita Truman [facility] Start: 01-31-2022 End: 02-01-2022 ambulatory MARGARITA TRUMAN Facility:[facility] Start: 01-10-2022 End: 01-11-2022 ambulatory Nalini LANDERS Facility:[facility] Start: 01-10-2022 End: 01-10-2022 Patient encounter procedure Nalini LANDERS [facility] [place] Start: 12-27-2021 End: 12-28-[address] NALINI LANDERS . Facility:[facility] Start: 12-06-2021 End: 12-06-2021 ambulatory Isaias Gomez Other [facility] Other Start: 12-06-2021 Office outpatient visit 15 minutes Isaias Gomez [facility] Start: 11-21-2021 End: 11-21-2021 ambulatory UNKNOWN PROVIDER Facility:[facility] Start: 11-20-2021 End: 11-24-2021 Evaluation and management of inpatient ERIC CONTE Facility:[facility] Start: 11-20-2021 End: 11-20-[address] AMARA DAVISON Facility: Start: 10-10-2021 End: 10-10-2021 Patient encounter procedure Nalini JULIENL [facility] Start: 10-02-2021 End: 10-03-[address] KATHERYN NIXON Facility:[facility] Start: 09-16-2021 End: 09-17-[address] AMARA DAVISON Facility: Start: 08-08-2021 End: 08-08-2021 ambulatory Margarita Truman Other [facility] Other Start: 08-08-2021 Office outpatient visit 25 minutes Margarita Truman [facility] Procedures Date Procedure Procedure Detail Performing Clinician Start: 07-25-2023 Follow-up visit Follow-up JANIA Bassett MATT section Nalini JULIEN L Deviated nasal septu m (disorder) Nalini NILL Excision of cyst Nalini NIL L Excision of uvula Nalini NI LL Rotator cuff syndrom e (disorder) Nalini NILL Comment on above: right Tonsillectomy and adenoidectomy Nalini JULIENL Plan of Treatment Date Care Activity Detail Author Renal function 2000 panel - Serum or Plasma [facility] Immunizations Immunization Date Immunization Notes Care Provider Fa cility NEGATED: Highlighted row has not occurred!05-18-2020 influenza virus vaccine, unspecified formulation Nalini JULIENL [facility] [place] Payers Date Payer Category Payer Unknown [id number] 2.16. [id number] 1965 Unknown [id number] 2.16.8 40.1.148008.3.579.2.647 1965 Unknown [id number] 2.16.84 0.1.981076.3.579.2.593 1965 Unknown [id number] 2.16.84 0.1.695416.3.579.2.593 1965 Unknown [id number] 2.16.84 0.1.364674.3.579.2.593 1965 Unknown [id number] 2.16.84 0.1.012916.3.579.2.593 1965 Unknown [id number] 2.16.84 0.1.350204.3.579.2.593 1965 Unknown [id number] 2.16.84 0.1.497431.3.579.2.593 1965 Unknown [id number] 2.16.84 0.1.185371.3.579.2.593 1965 Unknown [id number] 2.16.84 0.1.552084.3.579.2.593 1965 Unknown [id number] 2.16.8 40.1.421688.3.579.2.727 1965 Unknown [id number] 2.16.8 40.1.746468.3.579.2.727 1965 Unknown [id number] 2.16.84 0.1.088348.3.579.2.1259 1965 Unknown [id number] 2.16.84 0.1.626461.3.579.2.1259 1965 Unknown [id number] 2.16.84 0.1.237669.3.579.2.1259 1965 Unknown [id number] 2.16.84 0.1.045723.3.579.2.1259 1965 Unknown [id number] 2.16.84 0.1.176891.3.579.2.1259 1965 Unknown [id number] 2.16.84 0.1.264932.3.579.2.1259 1965 Unknown [id number] 2.16.8 40.1.845472.3.579.2.1285 1965 Unknown [id number] 2.16.8 40.1.686490.3.579.2.1285 1965 Unknown [id number] 2.16.8 40.1.372210.3.579.2.1285 1965 Unknown [id number] 2.16.8 40.1.448680.3.579.2.1285 1965 Unknown [id number] 2.16.8 40.1.379900.3.579.2.1285 1965 Unknown [id number] 2.16.8 40.1.452651.3.579.2.1285 1965 Unknown [id number] 2.16.8 40.1.680865.3.579.2.1285 1965 Unknown [id number] 2.16.8 40.1.855127.3.579.2.1285 1965 Unknown [id number] 2.16.8 40.1.892307.3.579.2.1285 1965 Unknown [id number] 2.16.8 40.1.868650.3.579.2.1285 1965 Unknown [id number] 2.16.8 40.1.203888.3.579.2.1285 1965 Unknown [id number] 2.16.8 40.1.866301.3.579.2.1285 1965 Unknown [id number] 2.16.8 40.1.799201.3.579.2.1285 1965 Unknown [id number] 2.16.84 0.1.676778.3.579.2.1286 1959 Medicaid [id number] 1959 Unknown [id number] Self-pay Self Pay [id number] Unknown [id number] 2.16.840.1.137733.19 Unknown [id number] Social History Date Type Detail Facility Start: 10-10-2021 End: 10-15-2023 Tobacco smoking status Ex-smoker (finding) [facility] Other Tobacco smoking status Never [facility] Sex Assigned At Female [facility] Other Start: 1965 Sex Assigned At Female F [facility] Functional Status Date Assessment Result Facility 10-10-2021 Functional Status N/A General Toro rgsarah Bomoda Clinical Notes 08-08-2021 to 05-24-2023 Note Date & Type Note Facility 05-24-2023 Note [facility] Subjective Raquel Vila is a [...] exertion. No robbi (more content not included)... [facility] 12-07-2022 Note [facility] Subjective Raquel Vila is a [...] seen. Grade I: (more content not included)... [facility] 02-08-2022 Evaluation note Encounter Date Diagnosis Assessment [...] diuresis. Advised her to adequately hydrate herself. [facility] Other 09-07-2022 NoteOPERATIVE NOTE OPERATION DATE: 12/27/2021 [...] problems or questions. CC: Shaikh Ambar M.D.[id number] Evaluation note* Encounter Date Diagnosis Assessment Notes [...] days. She understands and agrees with plan. [facility] Other 08-05-2022 NoteMR#: [id number] I [facility] Pt. Name: Raquel Vila Admitted: 11/20/2021 Discharged: [...] initially transcutaneously paced and sent to the [facility] for further management. The patient was intubated and mechanically ventilated prior to her transfer to [facility]. The patient was admitted to the medical [...] P/Eric Conte MD Date Trans: 11/24/2021 04:50 P/mmo [id number] cc: Lisbeth Grace M.D. [address] [place] [address] note* Encounter Date Diagnosis Assessment [...] Will prescribe allopurinol if she gets symptoms. [facility] Other Evaluation + Plan note No data available for this section [facility] [place] Evaluation noteNo InformationNorth Parso Other Evaluation note* Diagnosis Onset Date Resolution Status CKD (chronic kidney disease) stage 3, GFR 30-59 ml/min acute [id number] acute Hyperuricemia acute Iron deficiency acute Type 2 diabetes mellitus wit h diabetic chronic kidney disease acute Vitamin D deficiency acute [facility] Work Phone: Hisjdgv general Narrative - Reported* Type Description Date [...] PNEUMONIA, BLOOD CLOT IN THE LUNG 07/2020 [facility] Other Hisuvfj general Narrative - Reported* Type Description Date [...] REACTION MIXING MET OPROLOL AND LEXAPRO 11/2021 [facility] Other Hisnylq general Narrative - Reported* Type Description Date [...] REACTION MIXING MET OPROLOL AND LEXAPRO 11/2021 [facility] Other Hospital Discharge instructions No data available for this section [facility] [place] Progress note No data available for this section [facility] [place] Summary Purpose Family History No Family History [...] kidney disease) stage 3, GFR 30-59 ml/min [id number] Hyperuricemia Iron deficiency Type 2 diabetes mellitus [...] and content) DATE CREATED AUTHOR 11/22/2021 [facility] DATE CREATED AUTHOR AUTHOR'S ORGANIZ ATION 12/01/2021 [facility] DATE CREATED AUTHOR AUTHOR'S ORGANIZ ATION 09/05/2022 [facility] DATE CREATED AUTHOR AUTHOR'S ORGANIZ ATION 11/02/2022 [facility] DATE CREATED AUTHOR AUTHOR'S ORGANIZ ATION 10/11/[address] [facility] DATE CREATED AUTHOR AUTHOR'S ORGANIZ ATION 12/20/2023 [facility] DATE CREATED AUTHOR AUTHOR'S ORGANIZ ATION 12/20/2023 [facility] DATE CREATED AUTHOR AUTHOR'S ORGANIZ ATION 01/12/2024 [facility] Goals (unrecognized section and content) Goals may [...] BE BASED ON THE PRIMARY CLINICAL RECORDS. [facility] [employer] [facility]. provides no warranty or guarantee of the accuracy or completeness of information in this document.
== END 2024-01-13 09:41 | disposition home or self-care (01) ==
LOC: CARD 09:40
PROVIDERS: PCP Internal Medicine; Visit Provider Internal Medicine Interventional Cardiology
DX: I42.1 Obstructive hypertrophic cardiomyopathy (principal); I27.20 Pulmonary hypertension, unspecified; I08.2 Rheumatic disorders of both aortic and tricuspid valves
CPT/HCPCS: 93306

== ENCOUNTER 2024-03-17 11:43 | Outpatient (OUT) | payer OTHER, SELFPAY ==
[2024-03-17 12:22] LABS: Creatinine Urine Random 89.21 mg/dL (20.00-300.00); Protein Creatinine Ratio Urine 0.25; Total Protein Urine Random 22.6 mg/dL (<=11.9)
[2024-03-17 12:31] LABS: Hematocrit 39.8 % (36.0-48.0); Hemoglobin 12.5 g/dL (12.0-16.0); Mean Corpuscular HGB Conc 31.4 g/dL (29.9-35.2); Mean Corpuscular Volume 95.4 fL (81.0-99.0); Platelet Count 175 10^3/uL (150-450); Red Blood Count 4.17 10^6/uL (4.20-5.40); Red Cell Distribution Width 13.9 % (11.0-15.0); White Blood Count 6.6 10^3/uL (4.0-11.0)
[2024-03-17 12:37] LABS: Bilirubin Urine NEGATIVE (NEGATIVE); Blood Urine NEGATIVE (NEGATIVE); Clarity Urine CLEAR (CLEAR); Color Urine LT. YELLOW (YELLOW); Glucose Urine UA NEGATIVE (NEGATIVE); Ketones Urine NEGATIVE (NEGATIVE); Leukocyte Esterase Urine NEGATIVE (NEGATIVE); Nitrite Urine NEGATIVE (NEGATIVE); Protein Urine NEGATIVE (NEG/TRACE); Specific Gravity Urine 1.025 (1.005-1.025); Urobilinogen Urine 0.2 EU/dL (0.2-1.0); pH Urine 5.5 (5.0-9.0)
[2024-03-17 12:51] LABS: Bacteria Urine NONE SEEN #/HPF (NONE SEEN); Cast Seen? NONE SEEN #/LPF (NONE SEEN); Crystals Seen? None Seen #/HPF (None Seen); Mucus Urine NONE SEEN (NONE SEEN); RBC Urine NONE SEEN #/HPF (0-2); Squamous Epithelial Cell Urine RARE #/LPF (NONE/RARE); WBC Urine NONE SEEN #/HPF (NONE SEEN)
[2024-03-17 13:11] LABS: Percent Iron Saturation 19.5 %
[2024-03-17 13:12] LABS: Albumin Level 3.4 g/dL (3.4-5.0); Anion Gap 12.1; BUN Creatinine Ratio 20.4; Calcium 8.9 mg/dL (8.5-10.1); Carbon Dioxide 23.6 mmol/L (21.0-32.0); Chloride 105 mmol/L (98-107); Estimated GFR (African America >60 (>=60 mL/min/1.73m^2); Estimated GFR (Non-African Ame 55 (>=60 mL/min/1.73m^2); Glucose 189 mg/dL (74-106); Magnesium 1.9 mg/dL (1.8-2.4); Phosphorus 3.1 mg/dL (2.6-4.7); Potassium 4.7 mmol/L (3.5-5.1); Sodium 136 mmol/L (136-145); Uric Acid 5.5 mg/dL (2.6-6.0)
[2024-03-18 12:10] LABS: PTH, Intact 47 pg/mL (15-65)
== END 2024-03-17 11:44 | disposition home or self-care (01) ==
LOC: LAB 11:45
PROVIDERS: Visit Provider Internal Medicine
DX: E61.1 Iron deficiency (principal); E79.0 Hyperuricemia without signs of inflammatory arthritis and tophaceous disease; E55.9 Vitamin D deficiency, unspecified; I12.9 Hypertensive chronic kidney disease with stage 1 through stage 4 chronic kidney disease, or unspecified chronic kidney disease; E11.22 Type 2 diabetes mellitus with diabetic chronic kidney disease; N18.30 Chronic kidney disease, stage 3 unspecified
CPT/HCPCS: 36415; 80069; 81001; 82306; 82570; 82728; 83540; 83550; 83735; 83970; 84156; 84550; 85027

== ENCOUNTER 2024-04-13 11:05 | Outpatient (RCR) | payer OTHER, SELFPAY | END 2024-04-21 14:48 | disposition home or self-care (01) | LOC: PT 11:05 | PROVIDERS: Visit Provider Orthopaedic Surgery Sports Medicine | DX: S46.012D Strain of muscle(s) and tendon(s) of the rotator cuff of left shoulder, subsequent encounter (principal); Z98.890 Other specified postprocedural states | CPT/HCPCS: 97110; 97161 ==

== ENCOUNTER 2024-04-22 11:03 | Outpatient (RCR) | payer OTHER, SELFPAY | END 2024-05-20 13:35 | disposition home or self-care (01) | LOC: PT 11:03 | PROVIDERS: Visit Provider Orthopaedic Surgery Sports Medicine | DX: S46.012D Strain of muscle(s) and tendon(s) of the rotator cuff of left shoulder, subsequent encounter (principal); Z98.890 Other specified postprocedural states | CPT/HCPCS: 97110 ==

== ENCOUNTER 2024-05-20 10:58 | Outpatient (RCR) | payer OTHER, SELFPAY | END 2024-07-16 11:42 | disposition home or self-care (01) | LOC: PT 10:58 | PROVIDERS: Visit Provider Orthopaedic Surgery Sports Medicine | DX: M25.561 Pain in right knee (principal); M25.562 Pain in left knee | CPT/HCPCS: 97110; 97112; 97113; 97161 ==

== ENCOUNTER 2024-10-13 14:07 | Outpatient (OUT) | payer OTHER, SELFPAY ==
[2024-10-13 14:51] LABS: Hematocrit 39.2 % (36.0-48.0); Hemoglobin 12.9 g/dL (12.0-16.0); Mean Corpuscular HGB Conc 32.9 g/dL (29.9-35.2); Mean Corpuscular Volume 91.2 fL (81.0-99.0); Mean Platelet Volume 9.8 fL (9.5-13.5); Platelet Count 154 10^3/uL (150-450); Red Cell Distribution Width 15.4 % (11.0-15.0); White Blood Count 6.7 10^3/uL (4.0-11.0)
[2024-10-13 14:54] LABS: Creatinine Urine Random 90.98 mg/dL (20.00-300.00); Protein Creatinine Ratio Urine 0.08; Total Protein Urine Random 7.6 mg/dL (<=11.9)
[2024-10-13 15:21] LABS: Bilirubin Urine NEGATIVE (NEGATIVE); Blood Urine NEGATIVE (NEGATIVE); Clarity Urine CLEAR (CLEAR); Color Urine LT. YELLOW (YELLOW); Glucose Urine UA >=1000 mg/dL (NEGATIVE); Ketones Urine NEGATIVE (NEGATIVE); Leukocyte Esterase Urine NEGATIVE (NEGATIVE); Nitrite Urine NEGATIVE (NEGATIVE); Protein Urine NEGATIVE (NEG/TRACE); Urobilinogen Urine 0.2 EU/dL (0.2-1.0)
[2024-10-13 15:23] LABS: Albumin Level 3.7 g/dL (3.4-5.0); Anion Gap 15.7; BUN Creatinine Ratio 27.5; Calcium 9.1 mg/dL (8.5-10.1); Carbon Dioxide 25.3 mmol/L (21.0-32.0); Chloride 105 mmol/L (98-107); Estimated GFR (African America 46 (>=60 mL/min/1.73m^2); Estimated GFR (Non-African Ame 38 (>=60 mL/min/1.73m^2); Glucose 187 mg/dL (74-106); Magnesium 2.5 mg/dL (1.8-2.4); Phosphorus 3.9 mg/dL (2.6-4.7); Sodium 141 mmol/L (136-145); Uric Acid 8.4 mg/dL (2.6-6.0)
[2024-10-13 15:41] LABS: Percent Iron Saturation 15.1 %
[2024-10-13 16:55] LABS: Bacteria Urine TRACE #/HPF (NONE SEEN); Cast Seen? NONE SEEN #/LPF (NONE SEEN); Crystals Seen? None Seen #/HPF (None Seen); Mucus Urine NONE SEEN (NONE SEEN); RBC Urine NONE SEEN #/HPF (0-2); Squamous Epithelial Cell Urine RARE #/LPF (NONE/RARE); WBC Urine 0-2 #/HPF (NONE SEEN)
[2024-10-14 11:08] LABS: PTH, Intact 94 pg/mL (15-65)
== END 2024-10-13 14:08 | disposition home or self-care (01) ==
LOC: LAB 14:10
PROVIDERS: PCP Nurse Practitioner; Visit Provider Internal Medicine
DX: N95.1 Menopausal and female climacteric states (principal); E83.42 Hypomagnesemia; E79.0 Hyperuricemia without signs of inflammatory arthritis and tophaceous disease; I12.9 Hypertensive chronic kidney disease with stage 1 through stage 4 chronic kidney disease, or unspecified chronic kidney disease; E11.22 Type 2 diabetes mellitus with diabetic chronic kidney disease; N18.30 Chronic kidney disease, stage 3 unspecified
CPT/HCPCS: 36415; 80069; 81001; 82306; 82570; 82728; 83540; 83550; 83735; 83970; 84156; 84402; 84403; 84550; 85027

== ENCOUNTER 2024-10-13 14:17 | Outpatient (OUT) | payer OTHER, SELFPAY ==
--- OUTSIDE RECORDS SUMMARY | 2024-10-01 14:15 | XMS_ITS | Encounter Summary ---
Author Organization [facility] Address [address] [place] [address] Care Team Providers Care Real Estate Accountant Name Role Phone Shaikh TEODORA Villalta Unavailable [phone] Yon De La Rosa MD Primary Care Provider Bonny Shaw C WEB DEVELOPER Unavailable Chuyita Sutherland LOGISTICS MANAGER-MECHANICS SUPERVISOR Unavailable Bhavin Miranda LPC Unavailable Unavailable Reason for Visit * Reason Comments Thyroid Nodule CT results Encounter Details Date Type Department Care Team (Late st Contact Info) Description 10/01/2024 2:15 PM EDT Office Visit [facility] [address] [place] [address] Trey Lombardo, DO [address] [place] [address] Thyroid nodule (Primary Dx); Neck mass; Multiple thyroid nodules Social History Tobacco Use Types Packs/Day Years Used Date Smoking Tobacco: Former Cigarettes 1.5 40 0 04/22/1987 - 2007 Passive Smoke Exposure: Past Smokeless Tobacco: Never Tobacco Cessation:Counseling Given: Not Answered Comments:5-10 years since last smoked. Alcohol Use Standard Drinks/Week Comments Yes 4 (1 standard drink = 0.6 oz pure alcohol) Social drinker- caffeine intake: 1-2 cups per day of soda/pop B1300 Health Literacy Answer Date Recor ded How often do you need to hav e someone help you when you read instructions, pamphlets, or other written material from your doctor or pharmacy? Never 06/30/2024 Humiliation, Afraid, Rape, and Kick questionnair e Answer Date Recorded Within the last year, have y ou been afraid of your partner or ex-partner? No 05/06/2023 Within the last year, have y ou been humiliated or emotionally abused in other ways by your partner or ex-partner? No 05/06/2023 Within the last year, have y ou been kicked, hit, slapped, or otherwise physically hurt by your partner or ex-partner? No 05/06/2023 Within the last year, have y ou been raped or forced to have any kind of sexual activity by your partner or ex-partner? Patient declined 05/06/2023 Social Connection and Isolat ion Panel [NHANES] Answer Date Recorded In a typical week, how many times do you talk on the phone with family, friends, or neighbors? More than three times a week 06/30/2024 How often do you get togethe r with friends or relatives? Twice a week 06/30/2024 How often do you attend chur ch or roman catholic services? More than 4 times per year 06/30/2024 Do you belong to any clubs o r organizations such as gnosticist groups, unions, fraternal or athletic groups, or school groups? Yes 06/30/2024 How often do you attend meet ings of the clubs or organizations you belong to? More than 4 times per year 06/30/2024 Are you , , di vorced, , never , or living with a partner? 06/30/2024 AUDIT-C Answer Date Recorded Q1: How often do you have a drink containing alc ohol? 2-4 times a month 06/30/2024 Q2: How many drinks containi ng alcohol do you have on a typical day when you are drinking? 1 or 2 06/30/2024 Q3: How often do you have si x or more drinks on one occasion? Never 06/30/2024 Overall Financial Resource Strain (CARDIA) Answe r Date Recorded How hard is it for you to pa y for the very basics like food, housing, medical care, and heating? Somewhat hard 06/30/2024 PHQ-2 Answer Date Recorded Patient Health Questionnaire-2 Score 5 07/09/2024 [facility] - Occupational Stress Questionnaire Answer Date Recorded Do you feel stress - tense, restless, nervous, or anxious, or unable to sleep at night because your mind is troubled all the time - these days? Very much 06/30/2024 Exercise Vital Sign Answer Date Recorde d On average, how many days pe r week do you engage in moderate to strenuous exercise (like a brisk walk)? 0 days 06/30/2024 On average, how many minutes do you engage in exercise at this level? 0 min 06/30/2024 Hunger Vital Sign Answer Date Recorded Within the past 12 months, y ou worried that your food would run out before you got the money to buy more. Sometimes true Within the past 12 months, t he food you bought just didn't last and you didn't have money to get more. Sometimes true 02/2025 PRAPARE - Transportation Answer Date Re corded In the past 12 months, has l ack of transportation kept you from medical appointments or from getting medications? No 06/20 In the past 12 months, has l ack of transportation kept you from meetings, work, or from getting things needed for daily living? No 06/30/2024 Housing Stability Vital Sign Answer Ja e Recorded In the last 12 months, was t here a time when you were not able to pay the mortgage or rent on time? Yes 05/06/2023 In the last 12 months, how many places have you lived? 1 05/06/2023 In the last 12 months, was t here a time when you did not have a steady place to sleep or slept in a care home (including now)? No 05/06/2023 Housing Stability Vital Sign Answer Ja e Recorded In the last 12 months, was t here a time when you were not able to pay the mortgage or rent on time? Yes 06/30/2024 In the past 12 months, how m any times have you moved where you were living? 0 06/30/2024 At any time in the past 12 m [place], were you homeless or living in a care home (including now)? No 06/30/2024 Education Answer Date Recorded What is the highest level of school you have completed or the highest degree you have received? High school graduate 03/12/2024 Comments No Sex and Gender Information Value Date Recorded Sex Assigned at Female 09/03/2022 12:48 PM EDT Legal Sex Female 6:50 PM EDT Gender Identity Female 09/03/2022 12:48 PM EDT Sexual Orientation Straight 09/03/2022 12 :48 PM EDT Occupation Industry Job Start Date Job End Date Not on file Not on file Not on file Not on file documented as of this encounter Last Filed Vital Signs Vital Sign Reading Time Taken Comments Blood Pressure - - Pulse - - Temperature - - Respiratory Rate - - Oxygen Saturation - - Inhaled Oxygen Concentration - - Weight 122 kg (269 lb) 10/01/2024 2:09 PM EDT Height 162.6 cm (5' 4 ) 10/01/2024 2:09 PM EDT Body Mass Index 46.17 10/01/2024 2:09 PM EDT documented in this encounter Progress Notes * Trey Lombardo, DO - 10/01/2024 2:15 PM EDT Subjective Patient ID: Geetha Vila is a 58 y.o. female who presents for Thyroid Nodule (CT results) HPI 58-year-old white female presents today for evaluation of enlarging thyroid nodule. Patient has undergone needle aspiration biopsy revealing likely benign pathology. Has noticed enlargement of the mass of her anterior neck over the past 3 or 4 years. Not having any difficulties with pain or voice change. Presents today to discuss Results of her CT scan and her laboratory work Review of Systems Patient denies any pain or fever. Does describe an obvious fullness of the anterior neck. Has undergone ultrasonography and needle aspiration biopsies. No history of trauma to this region. The rest of her review of systems is negative Allergies as of 10/01/2024 - Reviewed 10/01/2024 Allergen Reaction Noted Beta adrenergic blockers 04/08/2023 Metoprolol succinate [metoprolol] 04/08/2023 Nsaids 11/12/2023 Past Medical History: Diagnosis Date Acid reflux Anxiety and depression Arthritis Benign cardiac murmur Bilateral foot pain Cardiomyopathy (HCC) Patient reported Carpal tunnel syndrome on left Cervical disc disease Chronic diastolic congestive heart failure (HCC) CKD (chronic kidney disease), stage III (CMS-HCC) CKD stage 4 due to type 2 diabetes mellitus (HCC) Colloid thyroid nodule [place] of toe Depression Diabetes mellitus (HCC) DM2 (diabetes mellitus, type 2) (HCC) DUB (dysfunctional uterine bleeding) Essential hypertension Ground glass opacity present on imaging of lung Hammertoe, bilateral Hearing loss Heart failure, diastolic, acute (HCC) Hip pain, bilateral History of tobacco abuse Hx of being hospitalized 07/2020 pneumonia, O2 low, lymphedema 4-5 days Hyperlipidemia Hypertension Hyperthyroidism Hypertrophic cardiomyopathy (HCC) Hypertrophic obstructive cardiomyopathy (HCC) Insomnia Intermittent tremor Left shoulder pain Left wrist pain Left-sided chest wall pain Low iron Lower back pain Multiple thyroid nodules Nausea Neck mass Nontoxic multinodular goiter Obesity PATRICE (obstructive sleep apnea) Other synovitis and tenosynovitis, left hand Peripheral neuropathy Peripheral vascular disease Pneumonia Pulmonary embolism (HCC) Restless leg syndrome Retinal telangiectasis, bilateral Right knee pain Right shoulder pain RLS (restless legs syndrome) Stress incontinence, female Swelling of scalp Thyroid nodule Toe pain, bilateral Type 2 diabetes mellitus with peripheral neuropathy (HCC) Type 2 diabetes mellitus with stage 4 chronic kidney disease (HCC) Vitamin D deficiency Weak pulse Current Outpatient Medications: aspirin 81 MG EC tablet, Take 81 mg by mouth Daily, Disp: , Rfl: atorvastatin (Lipitor) 20 MG tablet, Take 1 tablet (20 mg) by mouth Daily, Disp: 90 tablet, Rfl: 0 buPROPion XL (Wellbutrin XL) 150 MG 24 hr tablet, Take 1 tablet (150 mg) by mouth in the morning. Do not crush, chew, or split.., Disp: 30 tablet, Rfl: 1 carvedilol (Coreg) 3.125 MG tablet, Take 3.125 mg by mouth in the morning and 3.125 mg in the evening. Take with meals., Disp: , Rfl: carvedilol (Coreg) 6.25 MG tablet, Take 6.25 mg by mouth in the morning and 6.25 mg in the evening.Take with meals., Disp: , Rfl: cholecalciferol (Vitamin D-3) 50 MCG (1999 UT) tablet, Take 2,000 Units by mouth in the morning., Disp: 30 tablet, Rfl: 2 diphenhydrAMINE-acetaminophen (Tylenol PM) 25-500 MG per tablet, Take 2 tablets by mouth as needed at bedtime for sleep, Disp: , Rfl: escitalopram (Lexapro) 10 MG tablet, Take 1 tablet (10 mg) by mouth Daily, Disp: 30 tablet, Rfl: 1 fluticasone (Flonase) 50 MCG/ACT nasal spray, Administer 2 sprays into each nostril Daily Shake gently. Before first use, prime pump. After use, clean tip and replace cap., Disp: 48 g, Rfl: 3 furosemide (Lasix) 40 MG tablet, Take 40 mg by mouth Daily, Disp: , Rfl: liraglutide (Victoza) 18 MG/3ML injection, 0.6mg daily for 1 week, then 1.2mg daily for 1 week thenincrease to 1.8mg daily, Disp: 9 mL, Rfl: 2 lisinopril 10 MG tablet, Take 10 mg by mouth Daily, Disp: , Rfl: Lumateperone Tosylate (Caplyta) 42 MG capsule, Take 1 capsule by mouth at bedtime, Disp: 30 capsule, Rfl: 1 melatonin 10 MG tablet, Take 1 tablet by mouth as needed at bedtime, Disp: , Rfl: omeprazole (PriLOSEC) [address] capsule, Take 20 mg by mouth in the morning. Take before meals., Disp: , Rfl: Restasis 0.05 % ophthalmic emulsion, INSTILL 1 DROP IN BOTH EYES TWICE DAILY, Disp: , Rfl: traMADol (Ultram) 50 MG tablet, Take 50 mg by mouth every 6 (six) hours if needed, Disp: , Rfl: ALPRAZolam (Xanax) 0.5 MG tablet, Take 1 tablet (0.5 mg) by mouth 3 (three) times a day as needed for anxiety, Disp: 90 tablet, Rfl: 0 dapagliflozin (Farxiga) 10 MG, Take 1 tablet (10 mg) by mouth Daily, Disp: 90 tablet, Rfl: 1 pramipexole (Mirapex) 1 MG tablet, Take 1 tablet (1 mg) by mouth Daily, Disp: 90 tablet, Rfl: 1 pregabalin (Lyrica) 200 MG capsule, Take 1 capsule (200 mg) by mouth in the morning and 1 capsule (200 mg) before bedtime., Disp: 60 capsule, Rfl: 2 traZODone (Desyrel) 50 MG tablet, Take 1 tablet (50 mg) by mouth as needed at bedtime for sleep, Disp: 90 tablet, Rfl: 1 Past Surgical History: Procedure Laterality Date ADENOIDECTOMY SECTION, LOW TRANSVERSE CT GUIDED TRANSVAGINAL TRANSRECTAL FLUID DRAIN 02/07/2024 CT GUIDED TRANSVAGINAL TRANSRECTAL FLUID DRAIN 02/07/2024 ROTATOR CUFF REPAIR Right ROTATOR CUFF REPAIR Left 10/31/2023 biceps tendon tear repair SEPTOPLASTY TONSILLECTOMY TUBAL LIGATION Social History Socioeconomic History Marital status: Spouse name: Not on file Number of children: 4 Years of education: Not on file Highest education level: High school graduate 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 Vaping Use Vaping status: Never Used Substance and Sexual Activity Alcohol use: Yes Alcohol/week: 4.0 standard drinks of alcohol Types: 4 Glasses of wine per week Comment: Social drinker- caffeine intake: 1-2 cups per day of soda/pop Drug use: Never Sexual activity: Yes Partners: Male control/protection: Post-menopausal, Female Sterilization Other Topics Concern Not on file Social History Narrative Not on file Social Drivers of Health Financial Resource Strain: Medium Risk (06/30/2024) Overall Financial Resource Strain (CARDIA) Difficulty of Paying Living Expenses: Somewhat hard Food Insecurity: No Food Insecurity (07/27/2024) Received from [facility] Hunger Screening Within the past 12 months we worried whether our food would run out before we got money to buy more.: Never True Within the past 12 months the food we bought just didn't last and we didn't have money to get more.: Never True Recent Concern: Food Insecurity - Food Insecurity Present (06/30/2024) Hunger Vital Sign Worried About Running Out of Food in the Last Year: Sometimes true Ran Out of Food in the Last Year: Sometimes true Transportation Needs: No Transportation Needs (06/30/2024) PRAPARE - Transportation Lack of Transportation (Medical): No Lack of Transportation (Non-Medical): No Physical Activity: Inactive (06/30/2024) Exercise Vital Sign Days of Exercise per Week: 0 days Minutes of Exercise per Session: 0 min Stress: Stress Concern Present (06/30/2024) [facility] - Occupational Stress Questionnaire Feeling of Stress : Very much Social Connections: Moderately Integrated (06/30/2024) Social Connection and Isolation Panel [NHANES] Frequency of Communication with Friends and Family: More than three times a week Frequency of Social Gatherings with Friends and Family: Twice a week Attends Scientologist Services: More than 4 times per year Active Member of Clubs or Organizations: Yes Attends Club or Organization Meetings: More than 4 times per year Marital Status: Intimate Partner Violence: Unknown (06/13/2023) Received from [facility] [place] [facility] Fear of Current or Ex-Partner: Not on file Emotionally Abused: Not on file Physically Abused: Not on file Sexually Abused: Not on file Physically or Sexually Abused: Not on file Housing Stability: High Risk (06/30/2024) Housing Stability Vital Sign Unable to Pay for Housing in the Last Year: Yes Number of Times Moved in the Last Year: 0 Homeless in the Last Year: No Objective ENT Physical Exam General Examination: General overview: Normal, age-appropriate, no evidence of distress, obese Head: Normocephalic, atraumatic Eyes: Pupils are equally round and reactive to light and accommodation, extraocular muscles are intact Ears: External ear architecture within normal limits, ear canals are patent, tympanic membranes areintact. Nose: External nose unremarkable, nares patent, septum intact, no evidence of congestion. Oral cavity: Mucosa moist, no evidence of ulcer, mass, or lesion Throat: Clear Neck/thyroid: Neck supple, full range of motion, no cervical lymphadenopathy, large palpable mass in the area of the anterior neck, possibly below the hyoid bone. Very high to consider the possibility of thyroid gland involvement. Review of her CT scan does reveal evidence of a large nodule of the anterior neck which seems to be associated with the thyroid isthmus. No evidence of projection through or under the hyoid bone. Review of her thyroid functions revealed normal T3 and T4 with decreased TSH. Lymph nodes: No cervical lymphadenopathy Skin: Warm and dry, no evidence of suspicious lesions, no rash Heart: No jugular venous distention, point of maximal impulse normal Lungs: Good air movement, no audible wheezing, no shortness of breath Chest: Normal shape and expansion Abdomen: Normal, soft, nontender, nondistended Musculoskeletal: Cervical spine normal, full range of motion Extremities: No clubbing, cyanosis, or edema Peripheral pulses: 2+ radial, 2+ carotid Neurologic: Alert and oriented, cranial nerves 2-12 are grossly intact Psych: Alert and oriented, normal affect, no evidence of distress Assessment/Plan Diagnoses and all orders for this visit: Thyroid nodule Comments: Recommend excision of thyroid nodule in the future Neck mass Comments: CT scan suggests the nodule is associated with the isthmus of the thyroid and not thyroglossal ductcyst or mass Multiple thyroid nodules Comments: recommend regular ultrasound for continued surveillance. documented in this encounter Plan of Treatment Upcoming Encounters Date Type Department Care Team (Late st Contact Info) Description 11/17/2024 4:30 PM EDT Office Visit [facility] [address] [facility] [address] [place] [address] Chuyita Sutherland, LOGISTICS MANAGER-MECHANICS SUPERVISOR [address] [facility] [address] [place] [address] 11/18/2024 6:00 PM EDT Office Visit [facility] [address] [place] [address] Romelia Otero NP [address] [place] [address] 12/03/2024 12:00 PM EDT Social Work [facility] [address] [facility] [address] [place] [id number] Bhavin Miranda LPC documented as of this encounter Goals Goal Patient Goal Type Associated Problems Recent Progress Patient-Stated? Author Help patient manage antidepressant medication Care Plan Patient on antidepressant monitoring plan No Bonny Torrez NP documented as of this encounter Visit Diagnoses Diagnosis Thyroid nodule- Primary Nontoxic uninodular goiter Neck mass Swelling, mass, or lump in head and neck Multiple thyroid nodules Nontoxic multinodular goiter documented in this encounter Additional Health Concerns Active Problems Noted Date Diagnosed Date Patient on antidepressant monitoring plan 2023 Assessment Noted Time PHQ-9 Depression Total Score: 14 025 11:27 AM EDT documented as of this encounter Care Teams Real Estate Accountant Relationship Specialty Start Date End Date Shaikh Villalta MD [address] [place] [address] PCP - [facility] 07/22/23 oYn De La Rosa MD [address] [place] [id number] PCP - General Family Medicine 12/02/23 Bonny Shaw NP [address] [place] [address] Nurse Practitioner Family Medicine 12/02/23 10/06/24 Chuyita Sutherland APRN-MECHANICS SUPERVISOR [address] [address] [place] [address] Nurse Practitioner Psychiatry 05/07/24 Bhavin Miranda LPC Recreation Clerk Behavioral Health 05/27/24 documented as of this encounter
--- OUTSIDE RECORDS SUMMARY | 2024-10-06 11:48 | XMS_ITS | Encounter Summary ---
Author Organization [facility] enter Address [address] [place] [address] Care Team Providers Care Avionics Manager Name Role Phone Unavailable Primary Care Provider Unavailabl e Reason for Visit * MRI/CAT Scan (Routine) - Closed Specialty Diagnoses / Procedures Referred By Ana Laura t Referred To Contact Diagnoses HOCM (hypertrophic obstructive cardiomyopathy) Procedures MRI CARDIAC WITH CONTRAST W/VELOCITY FLOW MAP MRI CARDIAC WITH CONTRAST CHG CARDIAC MRI W/WO CONTRAST & FURTHER SEQ CHG CARDIAC MRI FOR VELOCITY FLOW MAPPING Trey Winston MBBS [address] [place] [address] Phone: tel: fax: [facility] [address] [place] [address] Referral ID Status Reason Start Date Expiration Date Visits Re quested Visits Authorized [id number] Closed 09/02/2024 09/27/2025 1 1 Encounter Details Date Type Department Care Team (Late st Contact Info) Description 10/06/2024 11:48 AM EDT - 10/06/2024 11:59 PM EDT Hospital Encounter Imaging [facility] Outpatient Care [address] [place] [address] Trey Winston MBBS [address] [place] [address] Discharge Disposition: Home or Self Care Social History Tobacco Use Types Packs/Day Years Used Date Smoking Tobacco: Never Assessed Comments Unknown Sex and Gender Information Value Date Recorded Sex Assigned at Not on file Legal Sex Female 4:16 PM EDT Gender Identity Not on file Sexual Orientation Not on file documented as of this encounter Last Filed Vital Signs Vital Sign Reading Time Taken Comments Blood Pressure 175/86 10/06/2024 12:45 PM EDT Pulse 76 10/06/2024 12:45 PM EDT Temperature - - Respiratory Rate - - Oxygen Saturation - - Inhaled Oxygen Concentration - - Weight 120.2 kg (265 lb) 10/06/2024 12:45 PM EDT Height 165.1 cm (5' 5 ) 10/06/2024 12:45 PM EDT Body Mass Index 44.1 10/06/2024 12:45 PM EDT documented in this encounter Plan of Treatment Not on file documented as of this encounter Procedures Procedure Name Priority Date/Time Associated Diagnosis Comments MRI CARDIAC WITH CONTRAST FOR MORPH W/VELOCITY FLOW MAP Routine 10/06/2024 1:39 PM EDT HOCM (hypertrophic obstructive cardiomyopathy) HEMATOCRIT Routine 10/06/2024 12:55 PM EDT documented in this encounter Results * MRI CARDIAC WITH CONTRAST W/VELOCITY FLOW MAP (10/06/2024 1:39 PM EDT) Anatomical Region Laterality Modality Chest, vascular Magnetic Resonan ce 10/06/2024 1:00 PM EDT Narrative 10/06/2024 4:47 PM EDT [facility] CMR Report Name: RAQUEL VILA : 1965 Scan Date: 2024-10-06 13:00:52 Electronically signed by Raymond Logan 16:54:30 VITALS ===== HEIGHT: 65 in (165.10 cm) WEIGHT: 265.00 lbs (120.20 kgs) BSA: 2.23 m^2 BP: 175 / 86 mmHg BASELINE HR: 76 BPM FINAL IMPRESSION ===== Normal systolic function with septal hypertrophy, LVOTO, and nonischemic fibrosis. Constellation of findings raises some suspicion for hypertrophic cardiomyopathy, although LVH secondary to HTN/CKD remains on the differential. Interval septal ablation with the resultant subendocardial infarct scar in the mid septal wall, otherwise no significant difference in comparison with the prior CMR [facility] 05/2018 report. SUMMARY ===== 58 yo F with HTN, HLD, SVT, CKD, obesity, PATRICE, PH, LVH, and HCM s/p alcohol septal ablation; CMR for further assessment; CARDIAC MRI LEFT VENTRICLE: Normal left ventricular size with moderate basal to mid septal hypertrophy (max thickness 1.3 cm of the focal residual hypertrophied basal septum & max thickness 1.4 cm of the mid septal wall) with focal punctate thinning of the mid septal wall (in between the hypertrophied segments), most likely related to the prior septal ablation. Preserved global systolic function with focal akinesis of the mid septal wall. Quantitative LVEF 66 %. VIABILITY: Late gadolinium enhancement imaging demonstrates patchy midmyocardial nonischemic fibrosis in the basal anterior/septal/inferior/inferolateral kumar as well as inferior RV insertion point fibrosis. There is also focal subendocardial infarct scar in the mid septal wall most likely related to the prior septal ablation. RIGHT VENTRICLE: Normal right ventricular size with normal systolic function. Quantitative RVEF 60 %. LEFT ATRIUM: LA cavity size is upper limits of normal. RIGHT ATRIUM: RA cavity size is upper limits of normal. PERICARDIUM: Trivial to small circumferential pericardial effusion. AORTIC VALVE: Leaflet thickening with mild restriction in leaflet mobility. Peak aortic velocity 2.4 m/s. Trivial to mild aortic regurgitation. MITRAL VALVE: Leaflet thickening. Mild anterior mitral valve leaflet elongation with mild chordal systolic anterior motion at rest. There is resultant LVOT flow acceleration at rest (between the focal residual hypertrophied basal septum and AMVL, Vmax could not be accurately assessed) and mild mitral regurgitation. Mild posterior mitral annular calcification. TRICUSPID VALVE: Trivial to mild tricuspid regurgitation. PULMONIC VALVE: Peak velocity 1.0 m/s. Trivial pulmonic regurgitation. OTHER FINDINGS: [place] T1 values measured in the lateral wall given septal infarct scar. Normal hoh T1 values with no evidence of diffuse interstitial expansion. No evidence of myocardial edema/inflammation on T2 mapping. 2.5 cm spherical structure in the right lobe of the thyroid not further characterized on this cardiac oriented exam, consider dedicated imaging if clinically indicated. Trivial bilateral pleural effusion. CORE EXAM ===== MEASUREMENTS ----- --- VOLUMETRIC ANALYSIS . . LV Reference RV Reference +------+ +------+ +------+ + EDV ml 175 (86-166) 177 (81-166) ml/m^2 78 (56-90) 79 (53-90) ESV ml 58.8 (22-59) 70.3 (15-68) ml/m^2 26 (14-33) 32 (11-37) CO L/min 8.83 8.11 L/min/m^2 3.96 3.64 MASS g 131 (72-144) g/m^2 59 (48-78) SV ml 116 (57-113) 107 (56-108) ml/m^2 52 (37-62) 48 (36-60) EF % 66 (59-77) 60 (55-79) '------+ +------+ +------+ ' LV DIMENSIONS WALL THICKNESS - ANTEROSEPTAL: 1.2 cm WALL THICKNESS - INFEROLATERAL: 1.0 cm WALL THICKNESS - MAXIMUM: 1.4 cm LV ANN: 4.9 cm LA DIMENSIONS (LV SYSTOLE) AREA - 2 CHAMBER: 26 cm^2 LENGTH - 2 CHAMBER: 6.7 cm AREA - 4 CHAMBER: 28 cm^2 LENGTH - 4 CHAMBER: 6.8 cm VOLUME: 92 ml VOLUME NORMALIZED: 41.4 ml/m^2 RA DIMENSIONS (RV SYSTOLE) AREA - 4 CHAMBER: 29 cm^2 EXTRACELLULAR VOLUME MEASUREMENT PRE-CONTRAST T1 MYOCARDIUM: 1233 msec PRE-CONTRAST T1 LV CAVITY: 2008 msec POST-CONTRAST T1 MYOCARDIUM: 509 msec POST-CONTRAST T1 LV CAVITY: 321 msec HEMATOCRIT: 35.4 % HEMATOCRIT DATE: ECV: 28 % SCAN INFO ===== GENERAL ----- --- SCANNER PULSE SEQUENCES: SSFP cine, 2D LGE segmented, 2D LGE single-shot, Pre-contrast T1 mapping, Post-contrast T1 mapping, T2 mapping, Phase contrast imaging, Bright-blood SSFP morphology CONTRAST AGENT TYPE: Gadavist GD CONCENTRATION: 1 M VOLUME ADMINISTERED: 18 ml DOSAGE: 0.15 mmol/kg SETUP DATE OF EVENT: SCAN TYPE: Clinical PATIENT TYPE: Outpatient INCOMPLETE SCAN: No REASON(S) FOR SCAN: HCM (known/suspect) REFERRING PHYSICIAN: 1) TREY WINSTON ATTENDING PHYSICIAN: RAYMOND Guevara MD FELLOW: NERY HERNANDEZ TECHNOLOGIST: Sherita Kamara ===== Patient Account [id number] CPT Codes 01299, 66862 ICD10 Codes I42.1 Report generated by [employer], a product of [employer] Procedure Note Raymond Lgoan MD - 10/06/2024 [facility] CMR Report Name: RAQUEL VILA : 1965 Scan Date: 2024-10-06 13:00:52 Electronically signed by Raymond Logan 16:54:30 VITALS ===== HEIGHT: 65 in (165.10 cm) WEIGHT: 265.00 lbs (120.20 kgs) BSA: 2.23 m^2 BP: 175 / 86 mmHg BASELINE HR: 76 BPM FINAL IMPRESSION ===== Normal systolic function with septal hypertrophy, LVOTO, and nonischemicfibrosis. Constellation of findings raises some suspicion for hypertrophic cardiomyopathy, althoughLVH secondary to HTN/CKD remains on the differential. Interval septal ablation with the resultant subendocardial infarct scar inthe mid septal wall, otherwise no significant difference in comparison with the prior CMR [facility] 05/2018report. SUMMARY ===== 58 yo F with HTN, HLD, SVT, CKD, obesity, PATRICE, PH, LVH, and HCM s/palcohol septal ablation; CMR for further assessment; CARDIAC MRI LEFT VENTRICLE: Normal left ventricular size with moderate basal to midseptal hypertrophy (max thickness 1.3 cm of the focal residual hypertrophied basal septum & max thickness 1.4 cm of themid septal wall) with focal punctate thinning of the mid septal wall (in between the hypertrophiedsegments), most likely related to the prior septal ablation. Preserved global systolic function with focalakinesis of the mid septal wall. Quantitative LVEF 66 %. VIABILITY: Late gadolinium enhancement imaging demonstrates patchymidmyocardial nonischemic fibrosis in the basal anterior/septal/inferior/inferolateral kumar as well as inferior RVinsertion point fibrosis. There is also focal subendocardial infarct scar in the mid septal wallmost likely related to the prior septal ablation. RIGHT VENTRICLE: Normal right ventricular size with normal systolicfunction. Quantitative RVEF 60 %. LEFT ATRIUM: LA cavity size is upper limits of normal. RIGHT ATRIUM: RA cavity size is upper limits of normal. PERICARDIUM: Trivial to small circumferential pericardial effusion. AORTIC VALVE: Leaflet thickening with mild restriction in leafletmobility. Peak aortic velocity 2.4 m/s. Trivial to mild aortic regurgitation. MITRAL VALVE: Leaflet thickening. Mild anterior mitral valve leafletelongation with mild chordal systolic anterior motion at rest. There is resultant LVOT flow acceleration at rest (betweenthe focal residual hypertrophied basal septum and AMVL, Vmax could not be accurately assessed) and mildmitral regurgitation. Mild posterior mitral annular calcification. TRICUSPID VALVE: Trivial to mild tricuspid regurgitation. PULMONIC VALVE: Peak velocity 1.0 m/s. Trivial pulmonic regurgitation. OTHER FINDINGS: [place] T1 values measured in the lateral wall given septalinfarct scar. Normal hoh T1 values with no evidence of diffuse interstitial expansion. No evidence of myocardial edema/inflammation on T2 mapping. 2.5 cm spherical structure in the right lobe of the thyroid not furthercharacterized on this cardiac oriented exam, consider dedicated imaging if clinically indicated. Trivial bilateral pleural effusion. CORE EXAM ===== MEASUREMENTS ----- --- VOLUMETRIC ANALYSIS . . LV Reference RV Reference +------+ +------+ +------+ + EDV ml 175 (86-166) 177 (81-166) ml/m^2 78 (56-90) 79 (53-90) ESV ml 58.8 (22-59) 70.3 (15-68) ml/m^2 26 (14-33) 32 (11-37) CO L/min 8.83 8.11 L/min/m^2 3.96 3.64 MASS g 131 (72-144) g/m^2 59 (48-78) SV ml 116 (57-113) 107 (56-108) ml/m^2 52 (37-62) 48 (36-60) EF % 66 (59-77) 60 (55-79) '------+ +------+ +------+ ' LV DIMENSIONS WALL THICKNESS - ANTEROSEPTAL: 1.2 cm WALL THICKNESS - INFEROLATERAL: 1.0 cm WALL THICKNESS - MAXIMUM: 1.4 cm LV ANN: 4.9 cm LA DIMENSIONS (LV SYSTOLE) AREA - 2 CHAMBER: 26 cm^2 LENGTH - 2 CHAMBER: 6.7 cm AREA - 4 CHAMBER: 28 cm^2 LENGTH - 4 CHAMBER: 6.8 cm VOLUME: 92 ml VOLUME NORMALIZED: 41.4 ml/m^2 RA DIMENSIONS (RV SYSTOLE) AREA - 4 CHAMBER: 29 cm^2 EXTRACELLULAR VOLUME MEASUREMENT PRE-CONTRAST T1 MYOCARDIUM: 1233 msec PRE-CONTRAST T1 LV CAVITY: 2008 msec POST-CONTRAST T1 MYOCARDIUM: 509 msec POST-CONTRAST T1 LV CAVITY: 321 msec HEMATOCRIT: 35.4 % HEMATOCRIT DATE: ECV: 28 % SCAN INFO ===== GENERAL ----- --- SCANNER PULSE SEQUENCES: SSFP cine, 2D LGE segmented, 2D LGE single-shot,Pre-contrast T1 mapping, Post-contrast T1 mapping, T2 mapping, Phase contrast imaging,Bright-blood SSFP morphology CONTRAST AGENT TYPE: Gadavist GD CONCENTRATION: 1 M VOLUME ADMINISTERED: 18 ml DOSAGE: 0.15 mmol/kg SETUP DATE OF EVENT: SCAN TYPE: Clinical PATIENT TYPE: Outpatient INCOMPLETE SCAN: No REASON(S) FOR SCAN: HCM (known/suspect) REFERRING PHYSICIAN: Latasha WINSTON ATTENDING PHYSICIAN:RAYMOND Guevara MD FELLOW: NERY HERNANDEZ TECHNOLOGIST: Sherita Kamara ===== Patient Account [id number] CPT Codes 37356, 45090 ICD10 Codes I42.1 Report generated by [employer], a product of [employer] Trey CERDA MR ORDERABLES Edited Result - Final * HEMATOCRIT (10/06/2024 12:55 PM EDT) Hematocrit 35.4 34.9 - 44.3 % 10/06/2024 2:53 PM EDT [facility] Blood Venipuncture / Unknown 10/06/2024 12:55 PM EDT 10/06/2024 2:51 PM EDT Trey CERDA HEMATOLOGY ORDERABLES Final Res ult [facility] [address] [id number] documented in this encounter Visit Diagnoses Diagnosis HOCM (hypertrophic obstructive cardiomyopathy) Hypertrophic obstructive cardiomyopathy documented in this encounter Administered Medications Inactive Administered Medications - up to 3 most recent administrations Medication Order MAR Action Action Date Dose Rate Site Gadobutrol (GADAVIST) 1 MMOL/ML injection 1-30 mL 1-30 mL, Intravenous, ONCE, 1 dose, On e 10/06/24 at 1245, Extravasation Risk Given - Radiology 10/06/2024 1:20 PM EDT 18 mL Sodium chloride (PF) 0.9 % injection 1-100 mL 1-100 mL, Intravenous, ONCE NEEDED, 1 dose, Starting on Sat10/06/24 at 1241, Until Sat10/06/24 at 1320, Flush, MR Procedure Given 10/06/2024 1:20 PM EDT 10 mL documented in this encounter
--- OUTSIDE RECORDS SUMMARY | 2024-10-07 14:30 | XMS_ITS | Encounter Summary ---
Author Organization [facility] Address [address] [place] [address] Care Team Providers Care Clerk Telegraph Service Name Role Phone Shaikh TEODORA Villalta Unavailable [phone] Yon De La Rosa MD Primary Care Provider [phone] Chuyita Sutherland AREA LOSS PREVENTION MANAGER-COCOA MILLING MACHINE OPERATOR Unavailable Bhavin Miranda SMALL PARTS ASSEMBLER Unavailable Unavailable Romelia Otero NP Unavailable [phone] Encounter Details Date Type Department Care Team (Latest Contact Info) Description 10/07/2024 2:30 PM EDT Clinical Support [facility] [address] [place] [phone] Amelia Moody, [facility] [address] [facility] [place] [address] Sensorineural hearing loss (SNHL) of both ears (Primary Dx); Tinnitus, bilateral Social History Tobacco Use Types Packs/Day Years Used Date Smoking Tobacco: Former Cigarettes 1.5 40 0 04/22/1987 - 2007 Passive Smoke Exposure: Past Smokeless Tobacco: Never Comments:5-[address] smoked. Alcohol Use Standard Drinks/Week Comments Yes [...] 06/30/2024 How often do you attend chur or sabianism services? More than 4 times per year 06/30/2024 Do you belong to any clubs o r organizations such as quaker groups, unions, fraternal or athletic groups, or [...] Recorded Patient Health Questionnaire-2 Score 5 07/09/2024 [facility] - Occupational Stress Questionnaire Answer Date [...] place to sleep or slept in a penitentiary (including now)? No 05/06/2023 Housing Stability Vital Sign Answer Ja e Recorded In the last 12 months, was t here a time when you were not able to pay the mortgage or rent on time? Yes 06/30/2024 In the past 12 months, how m any times have you moved where you were living? 0 06/30/2024 At any time in the past 12 m [place], were you homeless or living in a penitentiary (including now)? No 06/30/2024 Education Answer Date [...] on file documented as of this encounter Progress Notes * MARGARITA Bui - 10/07/2024 2:30 PM EDT History: Pt has history of hearing loss and periodic tinnitus both ears. Tinnitus sounds like a vacuum. Lastaudio at this office was 09-27-2022. Pt was fit 11-07-2022 with [employer] C[employer]G 1AX VON aids. Pt is here for check up. Otoscopic Exam: Ear canal clear and TM intact AU Pure Tone Audiometry Right Ear: Mild sloping to moderate sensorineural hearing loss above 250 Hz Left Ear: Mild to moderate sensorineural hearing loss above 250 Hz Speech Audiometry Right SRT = 40 dB and word discrimination score at 70 dBHL (masked) = 96% Left SRT = 35 dB and word discrimination score at 70 dBHL (masked) = 96% Impressions: Hearing is stable since evaluation in 2022. Hearing Aid Check: Changed domes and key worker filters. Listening check good. Recommend pt drop off aids next September to send in for EOW check. Pt agreed. documented in this encounter Plan of Treatment Upcoming Encounters Date Type Department Care Team (Late st Contact Info) Description 11/17/2024 4:30 PM EDT Office Visit [facility] [address] [facility] [address] [place] [address] Chuyita Sutherland APRN-COCOA MILLING MACHINE OPERATOR [address] [facility] [address] [place] [address] 11/18/2024 6:00 PM EDT Office Visit [facility] [address] [place] [address] Romelia Otero NP [address] [place] [address] 12/03/2024 12:00 PM EDT Social Work [facility] [address] [place] [address] [place] [address] Bhavin Miranda LPC documented as of this encounter Goals Goal Patient Goal Type Associated Problems Recent Progress Patient-Stated? Author Help patient manage antidepressant medication Care Plan Patient on antidepressant monitoring plan No Bonny Torrez NP documented as of this encounter Procedures Procedure Name Priority Date/Time Associated Diagnosis Comments AUDITORY FUNCTION TESTS Routine 10/07/2024 3:11 PM EDT documented in this encounter Results * Auditory function tests (10/07/2024 3:11 PM EDT) Narrative Amelia Moody, [facility] - 10/07/2024 3:11 PM EDT Right Ear: Mild sloping to moderate sensorineural hearing loss above 250 Hz Left Ear: Mild to moderate sensorineural hearing loss above 250 Hz Result [facility] Amelia Moody [facility] AUDIOLOGY SERVICES ORDERA BLES Final Result documented in this encounter Visit Diagnoses Diagnosis Sensorineural hearing loss (SNHL) of both ears- Primary Tinnitus, bilateral Unspecified tinnitus documented in this encounter Additional Health Concerns Active Problems Noted Date Diagnosed Date Patient on antidepressant monitoring plan 2023 Assessment Noted Time PHQ-9 Depression Total Score: 14 025 11:27 AM EDT documented as of this encounter Care Teams Clerk Telegraph Service Relationship Specialty Start Date End Date Shaikh Villalta MD [address] [place] [address] PCP - [facility] 07/22/23 Yon De La Rosa MD [address] [place] [address] PCP - General Family Medicine 12/02/23 Chuyita Sutherland APRN-COCOA MILLING MACHINE OPERATOR [address] [place] [place] [address] Nurse Practitioner Psychiatry 05/07/24 Bhavin Miranda LPC Training Program Developer Behavioral Health 05/27/24 Romelia Otero NP [address] [place] [address] Nurse Practitioner Family Medicine 10/07/24 documented as of this encounter
--- OUTSIDE RECORDS SUMMARY | 2024-10-13 13:30 | XMS_ITS | Encounter Summary ---
Author Organization [facility] Address [address] [place] [address] Care Team Providers Care Strip Tank Tender Name Role Phone Shaikh TEODORA Villalta Unavailable [phone] Yon De La Rosa MD Primary Care Provider [phone] Chuyita Sutherland ENTHONE SOLDER STRIPPER-LEASE PURCHASE TRUCK DRIVER Unavailable Bhavin Miranda LPC Unavailable Unavailable Romelia Otero NP Unavailable [phone] Reason for Visit * Reason Comments Med Management Follow-up Encounter Details Date Type Department Care Team ([facility] st Contact Info) Description 10/13/2024 1:30 PM EDT Office Visit [facility] [address] [facility] [address] [place] [address] Chuyita Sutherland, ENTHONE SOLDER STRIPPER-LEASE PURCHASE TRUCK DRIVER [address] [facility] [address] [place] [address] Bipolar 2 disorder (HCC); Insomnia, unspecified type; Generalized anxiety disorder Social History Tobacco Use Types Packs/Day Years Used Date Smoking Tobacco: Former Cigarettes 1.5 40 0 04/22/1987 - 2007 Passive Smoke Exposure: Past Smokeless Tobacco: Never Comments:5-10 years since [facility] smoked. Alcohol Use Standard Drinks/Week Comments Yes [...] How often do you attend chur or voodoo services? More than 4 times per year 06/30/2024 Do you belong to any clubs o r organizations such as jehovah's witness groups, unions, fraternal or athletic groups, or [...] Recorded Patient Health Questionnaire-2 Score 5 07/09/2024 [facility] - Occupational Stress Questionnaire Answer Date Recorded [...] place to sleep or slept in a [place] (including now)? No 05/06/2023 Housing Stability Vital Sign Answer Ja e Recorded In the last 12 months, was t here a time when you were not able to pay the mortgage or rent on time? Yes 06/30/2024 In the past 12 months, how m any times have you moved where you were living? 0 06/30/2024 At any time in the past 12 m [facility], were you homeless or living in a [place] facility (including now)? No 06/30/2024 Education Answer Date [...] Sign Reading Time Taken Comments Blood Pressure 124/74 10/13/2024 1:15 PM EDT Pulse 76 10/13/2024 1:15 PM EDT Temperature - - Respiratory Rate - - Oxygen Saturation - - Inhaled Oxygen Concentration - - Weight 119 kg (262 lb) 10/13/2024 1:15 PM EDT Height - - Body Mass Index 44.97 10/01/2024 2:09 PM EDT documented in this encounter Plan of Treatment Upcoming Encounters Date Type Department Care Team (Late st Contact Info) Description 11/17/2024 4:30 PM EDT Office Visit [facility] [address] [facility] [address] [place] [phone] Chuyita Sutherland APRN-LEASE PURCHASE TRUCK DRIVER [address] [facility] [address] [place] [address] 11/18/2024 6:00 PM EDT Office Visit [facility] [address] [place] [address] Romelia Otero, BOBCAT OPERATOR [address] [place] [address] 12/03/2024 12:00 PM EDT Social Work [facility] [address] [facility] [address] [place] [phone] Bhavin Miranda LPC documented as of this encounter Goals Goal Patient Goal Type Associated Problems Recent Progress Patient-Stated? Author Help patient manage antidepressant medication Care Plan Patient on antidepressant monitoring plan Bonny Zeng NP documented as of this encounter Visit Diagnoses Diagnosis Bipolar 2 disorder (HCC) Other bipolar disorders Insomnia, unspecified type Generalized anxiety disorder Generalized anxiety disorder documented in this encounter Additional Health Concerns Active Problems Noted Date Diagnosed Date Patient on antidepressant monitoring plan 2023 Assessment Noted Time PHQ-9 Depression Total Score: 14 07/09/ 025 11:27 AM EDT documented as of this encounter Care Teams Strip Tank Tender Relationship Specialty Start Date End Date Shaikh Villalta MD [address] [place] [address] PCP - [facility] 07/22/23 Yon De La Rosa MD [address] [place] [phone] PCP - General Family Medicine 12/02/23 Chuyita Sutherland APRN-LEASE PURCHASE TRUCK DRIVER [address] [facility] [address] [place] [address] Nurse Practitioner Psychiatry 05/07/24 Bhavin Miranda LPC Gym Supervisor Behavioral Health 05/27/24 Romelia Otero, BERRY [address] [place] [address] Nurse Practitioner Family Medicine 10/07/24 documented as of this encounter
--- OUTSIDE RECORDS SUMMARY | 2024-10-13 14:24 | XMS_ITS | Encounter Summary ---
Author Organization [facility] Address [address] [place] [address] Care Team Providers Care Scrap Drop Operator Name Role Phone Honorio Joyce MD Primary Care Provider [phone] Shaikh TEODORA Villalta Primary Care Provider [phone] Shaikh TEODORA Villalta Primary Care Provider +[phone] Shaikh TEODORA Villalta Unavailable [phone] Yon De La Rosa MD Primary Care Provider [phone] Bonny Shaw NUCLEAR REACTOR ENGINEER Unavailable Chuyita Sutherland ELECTRICIAN SOUND-ELECTRIC MOTOR CONTROL ASSEMBLER Unavailable Bhavin Miranda TRADING SPECIALIST Unavailable Unavailable Romelia Otero NUCLEAR REACTOR ENGINEER Unavailable [phone] Encounter Details Date Type Department Care Team (Late st Contact Info) Description 08/05/2017 Abstract [facility] [address] [place] [phone] Amelia Moody, [facility] [address] [place] [address] Social History Tobacco Use Types Packs/Day Years Used Date Smoking Tobacco: Never Assessed Comments Unknown Sex and Gender Information Value Date Recorded Sex Assigned at Female 09/03/2022 12:48 PM EDT Legal Sex Female 6:50 PM EDT Gender Identity Female 09/03/2022 12:48 PM EDT Sexual Orientation Straight 09/03/2022 12 :48 PM EDT documented as of this encounter Plan of Treatment Upcoming Encounters Date Type Department Care Team (Late st Contact Info) Description 11/17/2024 4:30 PM EDT Office Visit [facility] [address] [place] [address] Chuyita Sutherland, ELECTRICIAN SOUND-ELECTRIC MOTOR CONTROL ASSEMBLER [address] [place] [address] 11/18/2024 6:00 PM EDT Office Visit [facility] [address] [place] [address] Romelia Otero, NUCLEAR REACTOR ENGINEER [address] [place] [address] 12/03/2024 12:00 PM EDT Social Work [facility] [address] [facility] [address] [place] [address] Bhavin Miranda, ADAM documented as of this encounter Visit Diagnoses Not on filedocumented in this encounter Care Teams Scrap Drop Operator Relationship Specialty Start Date End Date Honorio Joyce MD PCP - General Family Medicine 09/25/22 10/31/22 Shaikh Villalta MD PCP - General Internal Medicine 11/01/22 08/11/23 Shaikh Villalta MD [address] [place] [address] PCP - General Internal Medicine 08/12/23 12/01/23 Shaikh Villalta MD [address] [place] [address] PCP - [facility] 07/22/23 Yon De La Rosa MD [address] [place] [address] PCP - General Family Medicine 12/02/23 Bonny Shaw, BERRY [address] [place] [address] Nurse Practitioner Family Medicine 12/02/23 10/06/24 Chuyita Sutherland, ELECTRICIAN SOUND-ELECTRIC MOTOR CONTROL ASSEMBLER [address] [facility] [place] [address] Nurse Practitioner Psychiatry 05/07/24 Bhavin Miranda LPC Industrial Gas Fitter Helper Behavioral Health 05/27/24 Romelia Otero NP [address] [place] [address] Nurse Practitioner Family Medicine 10/07/24 documented as of this encounter
--- OUTSIDE RECORDS SUMMARY | 2024-10-13 14:24 | XMS_ITS | Encounter Summary ---
Author Organization [facility] Address [address] [place] [address] Care Team Providers Care Tire Installer Name Role Phone Honorio Joyce MD Primary Care Provider [phone] Shaikh TEODORA Villalta Primary Care Provider [phone] Shaikh TEODORA Villalta Primary Care Provider [phone] Shaikh TEODORA Villalta Unavailable [phone] Yon De La Rosa MD Primary Care Provider [phone] Bonny Shaw PRODUCT ARCHITECT Unavailable Chuyita Sutherland TREE SHEAR OPERATOR-OPEN CUT EXAMINER Unavailable Bhavin Miranda FIRE CONTROL TECHNICIAN Unavailable Unavailable Romelia Otero PRODUCT ARCHITECT Unavailable [phone] Encounter Details Date Type Department Care Team (Late st Contact Info) Description 08/27/2017 Abstract [facility] [address] [place] [phone] Amelia Moody, [facility] [address] [place] [address] Social History Tobacco Use Types Packs/Day Years [...] [address] [place] [address] Chuyita Sutherland, TREE SHEAR OPERATOR-OPEN CUT EXAMINER [address] [place] [address] 11/18/2024 6:00 PM EDT Office Visit [facility] [address] [place] [address] Romelia Otero, PRODUCT ARCHITECT [address] [place] [address] 12/03/2024 12:00 PM EDT Social Work [facility] [address] [facility] [address] [place] [address] Bhavin Miranda, ADAM documented as of this encounter Visit Diagnoses Not on filedocumented in this encounter Care Teams Tire Installer Relationship Specialty Start Date End Date Honorio Joyce MD PCP - General Family Medicine 09/25/22 10/31/22 Shaikh Villalta MD PCP - General Internal Medicine 11/01/22 08/11/23 Shaikh Villalta MD [address] [place] [address] PCP - General Internal Medicine 08/12/23 12/01/23 Shaikh Villalta MD [address] [place] [address] PCP - [facility] 07/22/23 Yon De La Rosa MD [address] [place] [address] PCP - General Family Medicine 12/02/23 Bonny Shaw, BERRY [address] [place] [address] Nurse Practitioner Family Medicine 12/02/23 10/06/24 Chuyita Sutherland, TREE SHEAR OPERATOR-OPEN CUT EXAMINER [address] [facility] [place] [address] Nurse Practitioner Psychiatry 05/07/24 Bhavin Miranda LPC Sap Plant Maintenance Consultant Behavioral Health 05/27/24 Romelia Otero NP [address] [place] [address] Nurse Practitioner Family Medicine 10/07/24 documented as of this encounter
--- OUTSIDE RECORDS SUMMARY | 2024-10-13 14:24 | XMS_ITS | Encounter Summary ---
Author Organization [facility] Address [address] [place] [address] Care Team Providers Care Desk Pens Assembler Name Role Phone Honorio Joyce MD Primary Care Provider [phone] Shaikh TEODORA Villalta Primary Care Provider [phone] Shaikh TEODORA Villalta Primary Care Provider [phone] Shaikh TEODORA Villalta Unavailable Yon De La Rosa MD Primary Care Provider [phone] Bonny Shaw BAG MAKING MACHINE TENDER Unavailable [phone] Chuyita Sutherland MANAGER OF CORPORATE-SCENERY BUILDER Unavailable Bhavin Miranda SENIOR ACCOUNT CLERK Unavailable Unavailable Romelia Otero BAG MAKING MACHINE TENDER Unavailable [phone] Encounter Details Date Type Department Care Team (Late st Contact Info) Description 08/07/2017 Abstract [facility] [address] [place] [phone] Amelia Moody, [facility] [address] [place] [address] Social History Tobacco Use Types Packs/Day Years [...] [address] [place] [address] Chuyita Sutherland, MANAGER OF CORPORATE-SCENERY BUILDER [address] [place] [address] 11/18/2024 6:00 PM EDT Office Visit [facility] [address] [place] [address] Romelia Otero, BAG MAKING MACHINE TENDER [address] [place] [address] 12/03/2024 12:00 PM EDT Social Work [facility] [address] [facility] [address] [place] [address] Bhavin Miranda, ADAM documented as of this encounter Visit Diagnoses Not on filedocumented in this encounter Care Teams Desk Pens Assembler Relationship Specialty Start Date End Date Honorio Joyce MD PCP - General Family Medicine 09/25/22 10/31/22 Shaikh Villalta MD PCP - General Internal Medicine 11/01/22 08/11/23 Shaikh Villalta MD [address] [place] [address] PCP - General Internal Medicine 08/12/23 12/01/23 Shaikh Villalta MD [address] [place] [address] PCP - [facility] 07/22/23 Yon De La Rosa MD [address] [place] [address] PCP - General Family Medicine 12/02/23 Bonny Shaw, BERRY [address] [place] [address] Nurse Practitioner Family Medicine 12/02/23 10/06/24 Chuyita Sutherland, MANAGER OF CORPORATE-SCENERY BUILDER [address] [facility] [place] [address] Nurse Practitioner Psychiatry 05/07/24 Bhavin Miranda LPC Engine Pilot Behavioral Health 05/27/24 Romelia Otero NP [address] [place] [address] Nurse Practitioner Family Medicine 10/07/24 documented as of this encounter
--- OUTSIDE RECORDS SUMMARY | 2024-10-13 14:24 | XMS_ITS | Encounter Summary ---
Author Organization [facility] Address [address] [place] [address] Care Team Providers Care Senior Writer Name Role Phone Honorio Jocye MD Primary Care Provider [phone] Shaikh TEODORA Villalta Primary Care Provider [phone] Shaikh TEODORA Villalta Primary Care Provider [phone] Shaikh TEODORA Villalta Unavailable [phone] Yon De La Rosa MD Primary Care Provider [phone] Bonny Shaw COMPANY SECRETARY Unavailable Chuyita Sutherland ROSS FURNACE OPERATOR-PAEDODONTIST Unavailable Bhavin Miranda INTERNAL GRINDING MACHINE OPERATOR Unavailable Unavailable Romelia Otero COMPANY SECRETARY Unavailable [phone] Encounter Details Date Type Department Care Team (Late st Contact Info) Description 08/05/2017 Abstract [facility] [address] [place] [phone] Amelia Moody, [facility] [address] [place] [address] Social History Tobacco Use Types Packs/Day Years [...] [address] [place] [address] Chuyita Sutherland, ROSS FURNACE OPERATOR-PAEDODONTIST [address] [place] [address] 11/18/2024 6:00 PM EDT Office Visit [facility] [address] [place] [address] Romelia Otero, COMPANY SECRETARY [address] [place] [address] 12/03/2024 12:00 PM EDT Social Work [facility] [address] [facility] [address] [place] [address] Bhavin Miranda, ADAM documented as of this encounter Visit Diagnoses Not on filedocumented in this encounter Care Teams Senior Writer Relationship Specialty Start Date End Date Honorio Joyce MD PCP - General Family Medicine 09/25/22 10/31/22 Shaikh Villalta MD PCP - General Internal Medicine 11/01/22 08/11/23 Shaikh Villalta MD [address] [place] [address] PCP - General Internal Medicine 08/12/23 12/01/23 Shaikh Villalta MD [address] [place] [address] PCP - [facility] 07/22/23 Yon De La Rosa MD [address] [place] [address] PCP - General Family Medicine 12/02/23 Bonny Shaw, BERRY [address] [place] [address] Nurse Practitioner Family Medicine 12/02/23 10/06/24 Chuyita Sutherland, ROSS FURNACE OPERATOR-PAEDODONTIST [address] [facility] [place] [address] Nurse Practitioner Psychiatry 05/07/24 Bhavin Miranda LPC Analyzer Sales Behavioral Health 05/27/24 Romelia Otero NP [address] [place] [address] Nurse Practitioner Family Medicine 10/07/24 documented as of this encounter
--- OUTSIDE RECORDS SUMMARY | 2024-10-13 14:24 | XMS_ITS | Encounter Summary ---
Author Organization [facility] Address [address] [place] [address] Care Team Providers Care Licensed Prosthetist/Orthotist Name Role Phone Honorio Joyce MD Primary Care Provider [phone] Shaikh TEODORA Villalta Primary Care Provider [phone] Shaikh TEODORA Villalta Primary Care Provider [phone] Shaikh TEODORA Villalta Unavailable [phone] Yon De La Rosa MD Primary Care Provider [phone] Bonny Shaw MICROSOFT DYNAMICS DEVELOPER Unavailable Chuyita Sutherland OFFICIAL COURT INTERPRETER-BROADCASTER Unavailable Bhavin Miranda BLUE LEATHER SORTER Unavailable Unavailable Romelia Otero MICROSOFT DYNAMICS DEVELOPER Unavailable [phone] Encounter Details Date Type Department Care Team (Late st Contact Info) Description 09/24/2017 Abstract [facility] [address] [place] [phone] Amelia Moody, [facility] [address] [place] [address] Social History Tobacco Use Types Packs/Day Years [...] [address] [place] [address] Chuyita Sutherland, OFFICIAL COURT INTERPRETER-BROADCASTER [address] [place] [address] 11/18/2024 6:00 PM EDT Office Visit [facility] [address] [place] [address] Romelia Otero, MICROSOFT DYNAMICS DEVELOPER [address] [place] [address] 12/03/2024 12:00 PM EDT Social Work [facility] [address] [facility] [address] [place] [address] Bhavin Miranda, ADAM documented as of this encounter Visit Diagnoses Not on filedocumented in this encounter Care Teams Licensed Prosthetist/Orthotist Relationship Specialty Start Date End Date Honorio Joyce MD PCP - General Family Medicine 09/25/22 10/31/22 Shaikh Villalta MD PCP - General Internal Medicine 11/01/22 08/11/23 Shaikh Villalta MD [address] [place] [address] PCP - General Internal Medicine 08/12/23 12/01/23 Shaikh Villalta MD [address] [place] [address] PCP - [facility] 07/22/23 Yon De La Rosa MD [address] [place] [address] PCP - General Family Medicine 12/02/23 Bonny Shaw, BERRY [address] [place] [address] Nurse Practitioner Family Medicine 12/02/23 10/06/24 Chuyita Sutherland, OFFICIAL COURT INTERPRETER-BROADCASTER [address] [facility] [place] [address] Nurse Practitioner Psychiatry 05/07/24 Bhavin Miranda LPC Diesel Retrofit Installer Behavioral Health 05/27/24 Romelia Otero NP [address] [place] [address] Nurse Practitioner Family Medicine 10/07/24 documented as of this encounter
--- OUTSIDE RECORDS SUMMARY | 2024-10-13 14:24 | XMS_ITS | Encounter Summary ---
Author Organization [facility] Address [address] [place] [address] Care Team Providers Care Senior Java J2Ee Developer Name Role Phone Honorio Joyce MD Primary Care Provider [phone] Shaikh TEODORA Villalta Primary Care Provider [phone] Shaikh TEODORA Villalta Primary Care Provider [phone] Shaikh TEODORA Villalta Unavailable [phone] Yon De La Rosa MD Primary Care Provider [phone] Bonny Shaw BEATER ENGINEER HELPER Unavailable [phone] INTERPRETER-INSPECTOR ROUGH CASTINGS Unavailable Bhavin Miranda BURNISHING MACHINE OPERATOR Unavailable Unavailable Romelia Otero BEATER ENGINEER HELPER Unavailable [phone] Encounter Details Date Type Department Care Team (Late st Contact Info) Description 08/27/2017 Abstract [facility] [address] [place] [address] Amelia Moody, [facility] [address] [place] [address] Social History Tobacco Use Types Packs/Day Years [...] [address] [place] [address] Chuyita Sutherland, CERTIFIED COURT INTERPRETER-INSPECTOR ROUGH CASTINGS [address] [place] [address] 11/18/2024 6:00 PM EDT Office Visit [facility] [address] [place] [address] Romelia Otero, BEATER ENGINEER HELPER [address] [place] [address] 12/03/2024 12:00 PM EDT Social Work [facility] [address] [facility] [address] [place] [address] Bhavin Miranda, ADAM documented as of this encounter Visit Diagnoses Not on filedocumented in this encounter Care Teams Senior Java J2Ee Developer Relationship Specialty Start Date End Date Honorio Joyce MD PCP - General Family Medicine 09/25/22 10/31/22 Shaikh Villalta MD PCP - General Internal Medicine 11/01/22 08/11/23 Shaikh Villalta MD [address] [place] [address] PCP - General Internal Medicine 08/12/23 12/01/23 Shaikh Villalta MD [address] [place] [address] PCP - [facility] 07/22/23 Yon De La Rosa MD [address] [place] [address] PCP - General Family Medicine 12/02/23 Bonny Shaw, BERRY [address] [place] [address] Nurse Practitioner Family Medicine 12/02/23 10/06/24 Chuyita Sutherland, CERTIFIED COURT INTERPRETER-INSPECTOR ROUGH CASTINGS 112 [facility] [place] [address] Nurse Practitioner Psychiatry 05/07/24 Bhavin Miranda LPC Mall Plant Caretaker Behavioral Health 05/27/24 Romelia Otero NP [address] [place] [address] Nurse Practitioner Family Medicine 10/07/24 documented as of this encounter
--- OUTSIDE RECORDS SUMMARY | 2024-10-13 14:24 | XMS_ITS | Encounter Summary ---
Author Organization [facility] Address [address] [place] [address] Care Team Providers Care Information Technology Advisor Name Role Phone Shaikh TEODORA Villalta Unavailable [phone] Yon De La Rosa MD Primary Care Provider Bonny Shaw NP Unavailable [phone] Chuyita Sutherland AUTO CLUTCH SPECIALIST-DISTRICT REPRESENTATIVE Unavailable Bhavin Miranda LPC Unavailable Unavailable Romelia Otero NP Unavailable [phone] Encounter Details Date Type Department Care Team (Late st Contact Info) Description 02/20/2024 Abstract [facility] [address] [place] [address] Bonny Shaw NP Social History Tobacco Use Types Packs/Day Years Used Date Smoking Tobacco: Former Cigarettes 988 - 2007 Passive Smoke Exposure: Past Smokeless Tobacco: Never Comments:5-10 years since [facility] smoked. Alcohol Use Standard Drinks/Week Comments Not Currently 0 (1 standard drink = 0.6 oz pure alcohol) caffeine intake: 3-4 cups per day of soda/pop Humiliation, Afraid, Rape, and Kick questionnair e [...] neighbors? More than three times a week 05/06/2023 How often do you get togethe r with friends or relatives? Three times a week 05/06/2023 How often do you attend chur or temple services? Never 05/06/2023 Do you belong to any clubs o r organizations such as yarsani groups, unions, fraternal or athletic groups, or school groups? No 05/06/2023 How often do you attend meet ings of the clubs or organizations you belong to? Never 05/06/2023 Are you , , di vorced, , never , or living with a partner? 05/06/2023 AUDIT-C Answer Date Recorded Q1: How often do you have a drink containing alc ohol? 2-3 times a week 05/06/2023 Q2: How many drinks containi ng alcohol do you have on a typical day when you are drinking? 1 or 2 05/06/2023 Q3: How often do you have si x or more drinks on one occasion? Less than monthly 05/06/2023 Overall Financial Resource Strain (CARDIA) Answe r Date Recorded How hard is it for you to pa y for the very basics like food, housing, medical care, and heating? Somewhat hard 05/06/2023 PHQ-2 Answer Date Recorded Patient Health Questionnaire-2 Score 0 12/18/2023 [facility] [place] of Occupat ional Health - Occupational Stress Questionnaire Answer Date Recorded Do you feel stress - tense, restless, nervous, or anxious, or unable to sleep at night because your mind is troubled all the time - these days? Very much 05/06/2023 Exercise Vital Sign Answer Date Recorde d On average, how many days pe r week do you engage in moderate to strenuous exercise (like a brisk walk)? 1 day 05/06/2023 On average, how many minutes do you engage in exercise at this level? 10 min 05/06/2023 Hunger Vital Sign Answer Date Recorded Within the past 12 months, y ou worried that your food would run out before you got the money to buy more. Never true 05/06/19 24 Within the past 12 months, t he food you bought just didn't last and you didn't have money to get more. Never true 05/06/2023 PRAPARE - Transportation Answer Date Re corded In the past 12 months, has l ack of transportation kept you from medical appointments or from getting medications? No 04/22 In the past 12 months, has l ack of transportation kept you from meetings, work, or from getting things needed for daily living? No 05/06/2023 Housing Stability Vital Sign Answer [...] place to sleep or slept in a intermediate (including now)? No 05/06/2023 Comments Unknown Sex and Gender Information Value [...] 11/17/2024 4:30 PM EDT Office Visit [facility] [address] [facility] 160 [place] [address] Chuyita Sutherland APRN-DISTRICT REPRESENTATIVE [address] [facility] 160 [place] [address] 11/18/2024 6:00 PM EDT Office Visit [facility] [address] [place] [address] Romelia Otero NP [address] [place] [address] 12/03/2024 12:00 PM EDT Social Work [facility] [address] [place] [address] Bhavin Miranda LPC documented as of this encounter Goals Goal Patient Goal Type Associated Problems Recent Progress Patient-Stated? Author Help patient manage antidepressant medication Care Plan Patient on antidepressant monitoring plan No Bonny Torrez NP documented as of this encounter Visit Diagnoses Not on filedocumented in this encounter Additional Health Concerns Active Problems Noted Date Diagnosed Date Patient on antidepressant monitoring plan 2023 Assessment Noted Time PHQ-9 Depression Total Score: 13 024 5:58 PM EDT documented as of this encounter Care Teams Information Technology Advisor Relationship Specialty Start Date End Date Shaikh Villalta MD [address] [place] [address] PCP - [facility] 07/22/23 Yon De La Rosa MD [address] [place] [address] PCP - General Family Medicine 12/02/23 Bonny Shaw NP [address] [place] [address] Nurse Practitioner Family Medicine 12/02/23 10/06/24 Chuyita Sutherland APRN-DISTRICT REPRESENTATIVE [address] [place] [address] Nurse Practitioner Psychiatry 05/07/24 Bhavin Miranda LPC Manager Lpn Behavioral Health 05/27/24 Romelia Otero NP [address] [place] [address] Nurse Practitioner Family Medicine 10/07/24 documented as of this encounter
--- OUTSIDE RECORDS SUMMARY | 2024-10-13 14:24 | XMS_ITS | Encounter Summary ---
Author Organization [facility] Address [address] [place] [address] Care Team Providers Care Director Of Instruction Name Role Phone Honorio Joyce MD Primary Care Provider [phone] Shaikh TEODORA Villalta Primary Care Provider [phone] Shaikh TEODORA Villalta Primary Care Provider [phone] Shaikh TOEDORA Villalta Unavailable [phone] Yon De La Rosa MD Primary Care Provider [phone] Bonny Shaw VISUAL BASIC .NET DEVELOPER Unavailable [phone] Chuyita Sutherland OIL CHANGER-CUPOLA MAN Unavailable Bhavin Miranda COURTESY BOOTH CASHIER Unavailable Unavailable Romelia Otero VISUAL BASIC .NET DEVELOPER Unavailable [phone] Encounter Details Date Type Department Care Team (Late st Contact Info) Description 08/27/2017 Abstract [facility] [address] [place] [phone] Amelia Moody, [facility] [address] [place] [address] Social History Tobacco Use Types Packs/Day Years [...] [address] [place] [address] Chuyita Sutherland, OIL CHANGER-CUPOLA MAN [address] [place] [address] 11/18/2024 6:00 PM EDT Office Visit [facility] [address] [place] [address] Romelia Otero, VISUAL BASIC .NET DEVELOPER [address] [place] [address] 12/03/2024 12:00 PM EDT Social Work [facility] [address] [place] [address] Bhavin Miranda, ADAM documented as of this encounter Visit Diagnoses Not on filedocumented in this encounter Care Teams Director Of Instruction Relationship Specialty Start Date End Date Honorio Joyce MD PCP - General Family Medicine 09/25/22 10/31/22 Shaikh Villalta MD PCP - General Internal Medicine 11/01/22 08/11/23 Shaikh Villalta MD [address] [place] [address] PCP - General Internal Medicine 08/12/23 12/01/23 Shaikh Villalta MD [address] [place] [address] PCP - [facility] 07/22/23 Yon De La Rosa MD [address] [place] [address] PCP - General Family Medicine 12/02/23 Bonny Shaw, BERRY [address] [place] [phone] Nurse Practitioner Family Medicine 12/02/23 10/06/24 Chuyita Sutherland, OIL CHANGER-CUPOLA MAN [address] [facility] [place] [address] Nurse Practitioner Psychiatry 05/07/24 Bhavin Miranda LPC Crane Service Technician Behavioral Health 05/27/24 Romelia Otero NP [address] [place] [address] Nurse Practitioner Family Medicine 10/07/24 documented as of this encounter
--- OUTSIDE RECORDS SUMMARY | 2024-10-13 14:24 | XMS_ITS | Referral Summary ---
Author Organization [facility] Address [address] [place] [address] Care Team Providers Care Audio Visual Aids Director Name Role Phone Romelia Otero MD Primary Care Provider [phone] Encounters Date Type Department Care Team Description 09/01/2024 10:45 AM EDT Office Visit [address] [address] Trey Winston MD HOCM (hypertrophic obstructive cardiomyopathy) (CMS/HCC) (Primary Dx); SVT (supraventricular tachycardia) 08/31/[address] [facility] [address] [place] [address] Yamile Le MA 08/19/[address] [facility] [address] [place] [address] Yamile Le MA Gastroesophageal reflux disease with esophagitis, unspecified whether hemorrhage from Last 3 Months Allergies Active Allergy Reactions Criticality Noted Date Comments Metoprolol Other 04/08/2023 Nsaids (Non-Steroidal Anti-Inflammatory Drug) Other 11/12/2023 Kidney issues-sees a collection technician Medications aspirin 81 mg EC tablet Take 1 tablet by mouth in the morning. 05/04/19 21 Active busPIRone (Buspar) 15 mg tablet Take 15 mg by mouth in the morning and at bedtime. 05/27/19 23 Active buPROPion XL (Wellbutrin XL) 300 mg 24 hr tablet Take 300 mg by mouth in the morning. 05/27/19 23 Active dapagliflozin (Farxiga) 10 mg Farxiga 10 mg tablet take 1 tablet by mouth once daily Active Vitamin D2 1,250 mcg (50,000 unit) capsule Take 1 capsule by mouth 1 (one) time per week. 06/01/19 23 Active glimepiride (Amaryl) 4 mg tablet Take 4 mg by mouth in the morning and at bedtime. 05/20/19 23 Active insulin glargine (Lantus) 100 unit/mL injection Inject under the skin. 05/04/19 21 Active magnesium oxide (Mag-Ox) 400 mg (241.3 mg magnesium) tablet Take 1 tablet by mouth in the morning. 09/27/19 22 Active pramipexole (Mirapex) 1 mg tablet Take 1 mg by mouth in the morning. 05/27/19 23 Active Ozempic 0.25 mg or 0.5 mg(2 mg/1.5 mL) pen injector 06/06/19 23 Active atorvastatin (Lipitor) 20 mg tabletIndications: Coronary artery disease, unspecified vessel or lesion type, unspecified whether angina present, unspecified whether penobscot or transplanted heart Take 1 tablet (20 mg) by mouth in the morning. 90 tablet 3 12/26/19 23 Active furosemide (Lasix) 40 mg tabletIndications: Edema, unspecified type take 2 tablets by mouth every morning 180 tablet 3 04/23/19 24 Active Additional Information Patient taking differently: 40 mgoralAs needed, Reported on 07/06/2024 pregabalin (Lyrica) 150 mg capsule 150 mg in the morning, at noon, and at bedtime. 12/21/19 23 Active traZODone (Desyrel) 100 mg tablet Take 100 mg by mouth in the morning. 04/01/20 23 Active escitalopram (Lexapro) 10 mg tablet Take 10 mg by mouth in the morning. 09/09/19 24 Active carvedilol (Coreg) 6.25 mg tabletIndications: Hypertrophic obstructive cardiomyopathy (CMS/HCC) Take 1 tablet (6.25 mg) by mouth with breakfast and with evening meal. 180 tablet 3 01/17/20 24 025 Active Caplyta 42 mg capsule Take 42 mg by mouth in the morning. Active carvedilol (Coreg) 3.125 mg tabletIndications: Hypertrophic obstructive cardiomyopathy (CMS/HCC),Primary hypertension Take 1 tablet (3.125 mg) by mouth with breakfast and with evening meal. Take in addition to the 6.25 mg tablet for a total of 9.375 mg twice daily. 180 tablet 3 07/07/19 25 026 Active lisinopril 10 mg tabletIndications: Primary hypertension Take 1 tablet (10 mg) by mouth in the morning. 90 tablet 3 07/07/19 25 026 Active omeprazole (PriLOSEC) [address] capsuleIndications :Gastroesophageal reflux disease with esophagitis, unspecified whether hemorrhage Take 1 capsule (20 mg) by mouth in the morning. Do not crush or chew. 90 capsule 3 08/20/19 25 Active ALPRAZolam (Xanax) 0.5 mg tablet Take 0.5 mg by mouth if needed at bedtime for anxiety. 07/29/19 25 Active Active Problems Problem Noted Date Diagnosed Date Bipolar 2 disorder 07/22/2024 Multiple thyroid nodules 07/06/2024 Thyroid nodule 07/06/2024 Body mass index (BMI) 40.0-44.9, adult Menopause 07/01/2024 Postmenopausal bleeding 07/01/2024 Abnormality of left breast on screening mammogra m 06/18/2024 Rotator cuff arthropathy of right shoulder 06/18 Primary osteoarthritis of both knees 03/09/2024 Pre-operative clearance 10/23/2023 Overview (01/17/2024): Last Assessment & Plan: Surgical Clearance requested by Orthopedic surgery for Left shoulder arthroplasty/rotator cuff repair under [place]. Patient's chronic medical conditions include CKD 4, T2 DM, Hypertrophic cardiomyopathy, HFpEF. Most recent ECHO 11/2021. No recent hospital admission/ED visit for Volume overload or HF. Asymptomatic and doing well since she lost weight on GLP agonists. Patient was cleared for surgery from cardiovascular point of view. Her chronic medical conditions are all stable and well optimized. She is medically cleared to proceed with shoulder arthroplasty and rotator cuff repair under [place]. Arthritis of left acromioclavicular joint 2023 Disorder of shoulder 10/01/2023 Traumatic complete tear of left rotator cuff 02/2024 Biceps tendinitis on left 10/01/2023 CKD (chronic kidney disease) stage 4, GFR 15-29 ml/min 08/12/2023 Overview (12/20/2023): Last Assessment & Plan: Due to T2 DM. Cr stable. BP and T2 DM well controlled. On Farxiga Neurologic disorder associated with diabetes jennifer litus 08/12/2023 Overview (12/20/2023): Last Assessment & Plan: Poorly controlled painful neuropathy. Currently on Lyrica. C/w same. Acute pain of left shoulder 05/07/2023 02/0 05/2023 Overview (05/24/2023): Last Assessment & Plan: Left shoulder pain ongoing for over a year now. No injury, no prior surgery on left shoulder. Pain is intermittent, worsens with specific movements. Worsening and now more persistent for past couple of months now. Suspect frozen shoulder based on exam Order an XR. She has an appointment with Orthopedic for her right shoulder - I asked to discuss further treatment plan with her orthopedic surgeon when she follows up with him later this month. Annual physical exam 05/07/2023 05/24/2023 Overview (05/24/2023): Last Assessment & Plan: This was an annual wellness exam. Active problems discussed and addressed this appointment RLS, Type 2 DM, Shoulder pain, knee pain. She is upto date on colonoscopy. Ordered mammogram for her. Patient will go to her daughters manager portable for PAP smear She will get influenza and Shingles vaccine and make an appointment for it. Cardiomyopathy 05/07/2023 05/24/2023 Chronic pain of both knees 05/07/202305/24 Overview (05/24/2023): Last Assessment & Plan: Chronic, intermittent, mostly posterior knee pain. Likely osteoarthritis. Will order XR bilaterally. Follow up with Orthopedic. Family history of osteoporosis in mother 023 12/07/2022 Chronic low back pain 06/11/2022 Current smoker 06/11/2022 Diastolic heart failure 06/11/2022 Disorder of intervertebral disc of cervical spin e 06/11/2022 Functional heart murmur 06/11/2022 History of pulmonary embolism 06/11/2022 Hyperlipidemia 06/11/2022 Infected sebaceous cyst 06/11/2022 Insomnia 06/11/2022 Mixed anxiety depressive disorder 06/11/2022 Morbid obesity 06/11/2022 Peripheral vascular disease 06/11/2022 Pilar cyst 06/11/2022 Plantar fasciitis 06/11/2022 Restless legs syndrome 06/11/2022 Sensorineural hearing loss (SNHL) of both ears 0 06/11/2022 Sleep apnea 06/11/2022 Type 2 diabetes mellitus 06/11/2022 Varicose veins of lower extremity 06/11/2022 Vascular insufficiency 06/11/2022 Vitamin D deficiency 06/11/2022 Generalized anxiety disorder 03/22/2021 Severe episode of recurrent major depressive disorder, without psychotic features 03/22/2021 Hypertrophic obstructive cardiomyopathy 07/29/19 Obstructive sleep apnea syndrome 10/02/2017 Hypertension 09/26/2017 Diabetes mellitus 09/26/2017 Immunizations Immunization Administration Dates Next Due Influenza, injectable, MDCK, preservative free, quadrivalent 03/16/2019,04/08/2017 Influenza, injectable, quadrivalent, preservativ e free 04/03/2017 Social History Tobacco Use Types Packs/Day Years Used Date Smoking Tobacco: Former Cigarettes Smokeless Tobacco: Never Tobacco Cessation:Counseling Given: Not Answered Alcohol Use Standard Drinks/Week Comments Yes 0 (1 standard drink = 0.6 oz pur e alcohol) occasional [place] Safety & Environment Answer Date Rec orded Fear of Current or Ex-Partner Not on file Emotionally Abused Not on file 06/13/2023 Physically Abused Not on file 06/13/2023 Sexually Abused Not on file 06/13/2023 Physically or Sexually Abused Not on file Comments Unknown Sex and Gender Information Value Date Recorded Sex Assigned at Female 05/12/2022 8:46 AM EST Legal Sex Female 9:36 PM EDT Gender Identity Female 05/12/2022 8:46 AM EST Sexual Orientation Heterosexual or Straight 04/23 8:46 AM EST Last Filed Vital Signs Vital Sign Reading Time Taken Comments Blood Pressure 146/82 09/01/2024 11:31 AM EDT Pulse 70 09/01/2024 11:31 AM EDT Temperature - - Respiratory Rate 12 12/07/2022 12:56 PM EDT Oxygen Saturation 95% 09/01/2024 11:31 AM EDT Inhaled Oxygen Concentration - - Weight 123 kg (271 lb) 09/01/2024 11:31 AM EDT Height 165.1 cm (5' 5 ) 09/01/2024 11:31 AM EDT Body Mass Index 45.1 09/01/2024 11:31 AM EDT Plan of Treatment Upcoming Encounters Date Type Department Care Team (Late st Contact Info) Description 11/10/2024 11:30 AM EDT Office Visit [facility] at [facility] [address] [place] [address] Trey Winston MD [address] [place] [phone] Insurance [facility] MEDICAID Advance Directives Documents on File Type Date Recorded Patient Developer Architect Expl anation Power of Crystal Gazer 07/27/2022 3:13 PM power defense attorney Care Teams Audio Visual Aids Director Relationship Specialty Start Date End Date Romelia Otero MD [facility] [place] [address] PCP - General Nurse Practitioner 07/06/24
--- OUTSIDE RECORDS SUMMARY | 2024-10-13 14:24 | XMS_ITS | Encounter Summary ---
Author Organization [facility] Address [address] [place] [address] Care Team Providers Care Battery Test Engineer Name Role Phone Shaikh TEODORA Villalta Primary Care Provider [phone] Romelia Otero MD Primary Care Provider [phone] Reason for Visit * Reason Comments Med Refill Encounter Details Date Type Department Care Team (Late st Contact Info) Description 07/28/2023 Refill [facility] at [facility] [address] [place] [address] Stanley Trent MD [address] [facility] [address] [facility] [place] [address] Gastroesophageal reflux disease with esophagitis, unspecified whether hemorrhage Social History Tobacco Use Types Packs/Day Years Used Date Smoking Tobacco: Former Cigarettes Smokeless Tobacco: Never Alcohol Use Standard Drinks/Week Comments Yes 0 [...] Heterosexual or Straight 04/23 8:46 AM EST documented as of this encounter Plan of Treatment Upcoming Encounters Date Type Department Care Team (Late st Contact Info) Description 11/10/2024 11:30 AM EDT Office Visit [facility] [address] [place] [address] Trey Winston MD [address] [place] [address] documented as of this encounter Visit Diagnoses Diagnosis Gastroesophageal reflux disease with esophagitis, unspecified whether hemorrhage documented in this encounter Care Teams Battery Test Engineer Relationship Specialty Start Date End Date Shaikh Villalta MD [address] [place] [address] PCP - General Family Medicine 06/07/22 07/05/24 Romelia Otero MD [address] [place] [address] PCP - General Nurse Practitioner 07/06/24 documented as of this encounter
--- OUTSIDE RECORDS SUMMARY | 2024-10-13 14:24 | XMS_ITS | Encounter Summary ---
Author Organization [facility] Address [address] [place] [address] Care Team Providers Care Oyster Bed Worker Name Role Phone Honorio Joyce MD Primary Care Provider [phone] Shaikh TEODORA Villalta Primary Care Provider [phone] Shaikh TEODORA Villalta Primary Care Provider [phone] Shaikh TEODORA Villalta Unavailable [phone] Yon De La Rosa MD Primary Care Provider [phone] Bonny Shaw KILN STACKER Unavailable [phone] Chuyita Sutherland ORTHOPEDICS TEACHER-ASBESTOS REMOVER Unavailable Bhavin Mirnada EVENT CREW TECHNICIAN Unavailable Unavailable Romelia Otero KILN STACKER Unavailable [phone] Encounter Details Date Type Department Care Team (Late st Contact Info) Description 07/08/2017 Abstract [facility] [address] [place] [phone] Amelia Moody, [facility] [address] [place] [address] Social History Tobacco Use Types Packs/Day Years [...] [address] [place] [address] Chuyita Sutherland, ORTHOPEDICS TEACHER-ASBESTOS REMOVER [address] [place] [address] 11/18/2024 6:00 PM EDT Office Visit [facility] [address] [place] [address] Romelia Otero, KILN STACKER [address] [place] [address] 12/03/2024 12:00 PM EDT Social Work [facility] [address] [facility] [address] [place] [address] Bhavin Miranda, ADAM documented as of this encounter Visit Diagnoses Not on filedocumented in this encounter Care Teams Oyster Bed Worker Relationship Specialty Start Date End Date Honorio Joyce MD PCP - General Family Medicine 09/25/22 10/31/22 Shaikh Villalta MD PCP - General Internal Medicine 11/01/22 08/11/23 Shaikh Villalta MD [address] [place] [address] PCP - General Internal Medicine 08/12/23 12/01/23 Shaikh Villalta MD [address] [place] [address] PCP - [facility] 07/22/23 Yon De La Rosa MD [address] [place] [address] PCP - General Family Medicine 12/02/23 Bonny Shaw, BERRY [address] [place] [address] Nurse Practitioner Family Medicine 12/02/23 10/06/24 Chuyita Sutherland, ORTHOPEDICS TEACHER-ASBESTOS REMOVER [address] [facility] [place] [address] Nurse Practitioner Psychiatry 05/07/24 Bhavin Miranda LPC Vehicle Operator Technician Behavioral Health 05/27/24 Romelia Otero NP [address] [place] [address] Nurse Practitioner Family Medicine 10/07/24 documented as of this encounter
--- OUTSIDE RECORDS SUMMARY | 2024-10-13 14:24 | XMS_ITS | Encounter Summary ---
Author Organization [facility] Address [address] [place] [address] Care Team Providers Care Paint Specialist Name Role Phone Honorio Joyce MD Primary Care Provider [phone] Shaikh TEODORA Villalta Primary Care Provider [phone] Shaikh TEODORA Villalta Primary Care Provider [phone] Shaikh TEODORA Villalta Unavailable [phone] Yon De La Rosa MD Primary Care Provider [phone] Bonny Shaw BUSPERSON Unavailable Chuyita Sutherland ROAD MENDER-RITUAL CIRCUMCISER Unavailable Bhavin Miranda MISSION COORDINATOR Unavailable Unavailable Romelia Otero BUSPERSON Unavailable [phone] Encounter Details Date Type Department Care Team (Late st Contact Info) Description 08/14/2017 Abstract [facility] [address] [place] [phone] Amelia Moody, [facility] [address] [place] [address] Social History Tobacco Use Types Packs/Day Years [...] [address] [place] [address] Chuyita Sutherland, ROAD MENDER-RITUAL CIRCUMCISER [address] [place] [address] 11/18/2024 6:00 PM EDT Office Visit [facility] [address] [place] [address] Romelia Otero, BUSPERSON [address] [place] [address] 12/03/2024 12:00 PM EDT Social Work [facility] [address] [facility] [address] [place] [address] Bhavin Miranda, ADAM documented as of this encounter Visit Diagnoses Not on filedocumented in this encounter Care Teams Paint Specialist Relationship Specialty Start Date End Date Honorio Joyce MD PCP - General Family Medicine 09/25/22 10/31/22 Shaikh Villalta MD PCP - General Internal Medicine 11/01/22 08/11/23 Shaikh Villalta MD [address] [place] [address] PCP - General Internal Medicine 08/12/23 12/01/23 Shaikh Villalta MD [address] [place] [address] PCP - [facility] 07/22/23 Yon De La Rosa MD [address] [place] [phone] PCP - General Family Medicine 12/02/23 Bonny Shaw, BERRY [address] [place] [address] Nurse Practitioner Family Medicine 12/02/23 10/06/24 [address]helrand, ROAD MENDER-RITUAL CIRCUMCISER [address] [facility] [place] [address] Nurse Practitioner Psychiatry 05/07/24 Bhavin Miranda LPC Kennel Staff Member Behavioral Health 05/27/24 Romelia Otero NP [address] [place] [address] Nurse Practitioner Family Medicine 10/07/24 documented as of this encounter
--- OUTSIDE RECORDS SUMMARY | 2024-10-13 14:24 | XMS_ITS | Encounter Summary ---
Author Organization [facility] Address [address] [place] [address] Care Team Providers Care Pecan Picker Name Role Phone Shaikh TEODORA Villalta Unavailable [phone] Yon De La Rosa MD Primary Care Provider [phone] Bonny Shaw GEAR ROOM KEEPER Unavailable [phone] Chuyita Sutherland HYDROELECTRIC SYSTEMS TECHNICIAN-HOME HEALTH CARE CASE MANAGER Unavailable Bhavin Miranda LPC Unavailable Unavailable Romelia Otero GEAR ROOM KEEPER Unavailable [phone] Encounter Details Date Type Department Care Team (Late st Contact Info) Description 01/16/2024 Clinisync Result Encounter [facility] External Department Unsolicited Provider, Generic External Data Social History Tobacco Use Types Packs/Day Years Used Date Smoking Tobacco: Former Cigarettes 988 - 2007 Passive Smoke Exposure: Past Smokeless Tobacco: Never Comments:5-10 years since [facility] smoked. Alcohol Use Standard Drinks/Week Comments Not [...] 05/06/2023 How often do you attend chur [employer] or shinto services? Never 05/06/2023 Do you belong to any clubs o r organizations such as advent groups, unions, fraternal or athletic groups, or [...] Recorded Patient Health Questionnaire-2 Score 0 12/18/2023 [facility] of Occupat ional Health - Occupational Stress [...] place to sleep or slept in a senior living (including now)? No 05/06/2023 Comments Unknown Sex [...] 11/17/2024 4:30 PM EDT Office Visit [facility] [address] [facility] [address] [place] [address] Chuyita Sutherland APRN-HOME HEALTH CARE CASE MANAGER [address] [facility] [address] [place] [address] 11/18/2024 6:00 PM EDT Office Visit [facility] [address] [place] [phone] Romelia Otero, BERRY [address] [place] [address] 12/03/2024 12:00 PM EDT Social Work [facility] [address] [place] [address] [place] [address] Bhavin Miranda, ADAM documented as of this encounter Goals Goal Patient Goal Type Associated Problems Recent Progress Patient-Stated? Author Help patient manage antidepressant medication Care Plan Patient on antidepressant monitoring plan Bonny Zeng NP documented as of this encounter Procedures Procedure Name Priority Date/Time Associated Diagnosis Comments CA ECHO DOPPLER COMPLETE 01/16/2024 4:33 PM EDT documented in this encounter Results * CA ECHO DOPPLER COMPLETE (01/16/2024 4:33 PM EDT) Anatomical Region Laterality Modality Other 01/16/2024 4:33 PM EDT Narrative 01/16/2024 4:34 PM EDT [place] [id number] Cardiology Report Signed Patient: RAQUEL VILA MR#: [id number] : 1965 Acct:[id number] Age/Sex: 58 / F ADM Date: 01/13/24 Loc: CARD Attending Dr: KATHERYN NIXON Ordering Physician: KATHERYN NIXON Date of Service: 01/13/24 Procedure(s): CA echo doppler complete Accession Number(s): [id number] cc: Shaikh Mikel Villalta; KATHERYN NIXON Patient Name: RAQUEL VILA MR#: [id number] : 1965 Exam Date: 01/13/2024 Ordering Doctor: DR KATHERYN NIXON M.D. ECHOCARDIOGRAM REPORT PROCEDURE: CA ECHO DOPPLER COMPLETE INDICATIONS: Hypertrophic Cardiomyopathy COMPARISON: None. DESCRIPTION: COMPLETE ECHOCARDIOGRAM Real-time transthoracic echocardiography with 2D, M-mode, spectral and color flow Doppler performed. QUALITY: Technical quality was good. LEFT VENTRICLE: Normal chamber size. Normal left ventricular wall thickness. LV EF: Global left ventricular systolic function is hyperdynamic; visually estimated ejection fraction is 70-75%. Elevated velocity and gradient across the left ventricle 3.4 m/sec, 45mmHg. This is likely due to hyperdynamic left ventricular systolic function. DIASTOLIC: Normal diastolic function. ATRIAL SEPTUM: Not adequately assessed. LEFT ATRIUM: Normal chamber size. RIGHT ATRIUM: Normal chamber size. RIGHT VENTRICLE: Normal chamber size. Normal right ventricular systolic function. TRICUSPID VALVE: Normal mobility and thickness. Mild regurgitation. Mild pulmonary hypertension. RVSP 35mmHg MITRAL VALVE: Normal mobility and thickness. No evidence of mitral valve stenosis. Mild mitral annular calcification. Trivial mitral regurgitation. AORTIC VALVE: Normal trileaflet appearance. Mildly calcified aortic valve. Normal leaflet mobility. No evidence of aortic valve stenosis. Mild aortic regurgitation. AORTIC ROOT: Normal diameter and appearance. PULMONIC VALVE: Normal thickness and mobility. No stenosis. Trivial regurgitation. PERICARDIUM: Anterior free space seen; trivial effusion vs pericardial fat pad. IVC: Collapses with inspirations. Normal size CONCLUSION: 1. Global left ventricular systolic function is hyperdynamic; visually estimated ejection fraction is 70-75% 2. Normal left ventricular wall thickness 3. Normal chamber size and right ventricular systolic function 4. Mild tricuspid regurgitation 5. Mild pulmonary hypertension; RVSP 35mmHg 6. Mild aortic regurgitation 7. Anterior free space seen; trivial effusion vs pericardial fat pad Adult Echocardiography Procedure Report Left Ventricle LVEDD (3.7 - 5.6 cm): 4.54 cm LVESD (2.2 - 4.0 cm): 2.64 cm LVIVS thickness (0.6 - 1.2 cm): 0.94 cm LVPW thickness (0.5 - 1.0 cm): 0.79 cm e': 0.09 m/s E - e': 7.53 LVOT Max Gradient: 10.67 mm[Hg] LVOT Area (cm2): 1.63 m/s Peak Velocity (LVOT): 1.63 m/s Mean Velocity (LVOT): 1.16 m/s LVOT Diameter 1.86 cm Left Ventricular Ejection Fraction: 61.92 % Left Atrium LA Volume Index (2D A2C): 28.64 ml/m2 Left Atrium Systolic Dimension: 4.90 cm Mitral Valve MV E to A Ratio: 0.74 Mitral Valve A-Wave Peak Velocity: 0.94 m/s Mitral Valve E-Wave Peak Velocity: 0.70 m/s Right Ventricle RV Internal Diastolic Dimension: 3.42 cm Aorta AO Root Diam: 2.52 cm Ascending Ao Diam: 3.30 cm Aortic Valve AoV Area (Peak Rafael): 1.96 cm2, 1.99 cm2 AoV Area (VTI): 1.74 cm2, 1.74 cm2 Peak Velocity(Antegrade Flow): 2.23 m/s, 2.31 m/s Peak Gradient(Antegrade Flow): 19.94 mm[Hg], 21.38 mm[Hg] Mean Velocity(Antegrade Flow): 1.57 m/s, 1.60 m/s Mean Gradient(Antegrade Flow): 11.46 mm[Hg], 11.90 mm[Hg] Velocity Time Integral: 48.78 cm, 48.58 cm Tricuspid Valve Peak Velocity (Regurgitant Flow): 2.83 m/s, 2.59 m/s, 2.82 m/s Pulmonic Valve Mean Gradient: 3.63 mm[Hg], 2.78 mm[Hg], 3.07 mm[Hg] Mean Velocity: 0.91 m/s, 0.76 m/s, 0.81 m/s Peak Velocity: 1.23 m/s Peak Gradient: 6.74 mm[Hg], 5.85 mm[Hg], 5.69 mm[Hg] Right Atrium Right Atrium Systolic Pressure: 29.67 ml, 29.67 ml Dictated by: Robert Tam M.D. on 01/16/2024 at 16:13 Approved by: Robert Tam M.D. on 01/16/2024 at 16:33 Dictated By: Robert Tam M.D. Signed By: 01/16/24 1634 DD/ 163 TD/TT: Excelsior Cutter: Procedure Note Radiology, Radiologist, MD - 01/16/2024 [place] [address] Cardiology Report Signed Patient: RAQUEL VILA LMR#: [id number] : 1965Acct:[id number] Age/Sex: 58 / FADM Date: 01/13/24 Loc: CARD Attending Dr: KATHERYN NIXON Ordering Physician: KATHERYN NIXON Date of Service: 01/13/24 Procedure(s): CA echo doppler complete Accession Number(s): [id number] cc: Shaikh Mikel Villalta; KATHERYN NIXON Patient Name: RAQUEL VILA MR#: [id number] : 1965 Exam Date: 01/13/2024 Ordering Doctor: DR KATHERYN NIXON M.D. ECHOCARDIOGRAM REPORT PROCEDURE: CA ECHO DOPPLER COMPLETE INDICATIONS: Hypertrophic Cardiomyopathy COMPARISON: None. DESCRIPTION: COMPLETE ECHOCARDIOGRAM Real-time transthoracic echocardiography with 2D, M-mode, spectral and color flow Dopplerperformed. QUALITY: Technical quality was good. LEFT VENTRICLE: Normal chamber size. Normal left ventricular wall thickness. LV EF: Global left ventricular systolic function is hyperdynamic;visually estimated ejection fraction is 70-75%. Elevated velocity and gradientacross the left ventricle 3.4 m/sec, 45mmHg. This is likely due to hyperdynamicleft ventricular systolic function. DIASTOLIC: Normal diastolic function. ATRIAL SEPTUM: Not adequately assessed. LEFT ATRIUM: Normal chamber size. RIGHT ATRIUM: Normal chamber size. RIGHT VENTRICLE: Normal chamber size. Normal right ventricularsystolic function. TRICUSPID VALVE: Normal mobility and thickness. Mild regurgitation.Mild pulmonary hypertension. RVSP 35mmHg MITRAL VALVE: Normal mobility and thickness. No evidence of mitralvalve stenosis. Mild mitral annular calcification. Trivial mitralregurgitation. AORTIC VALVE: Normal trileaflet appearance. Mildly calcified aorticvalve. Normal leaflet mobility. No evidence of aortic valve stenosis. Mildaortic regurgitation. AORTIC ROOT: Normal diameter and appearance. PULMONIC VALVE: Normal thickness and mobility. No stenosis. Trivial regurgitation. PERICARDIUM: Anterior free space seen; trivial effusion vs pericardialfat pad. IVC: Collapses with inspirations. Normal size CONCLUSION: 1. Global left ventricular systolic function is hyperdynamic; visually estimated ejection fraction is 70-75% 2. Normal left ventricular wall thickness 3. Normal chamber size and right ventricular systolic function 4. Mild tricuspid regurgitation 5. Mild pulmonary hypertension; RVSP 35mmHg 6. Mild aortic regurgitation 7. Anterior free space seen; trivial effusion vs pericardial fat pad Adult Echocardiography Procedure Report Left Ventricle LVEDD (3.7 - 5.6 cm): 4.54 cm LVESD (2.2 - 4.0 cm): 2.64 cm LVIVS thickness (0.6 - 1.2 cm): 0.94 cm LVPW thickness (0.5 - 1.0 cm): 0.79 cm e': 0.09 m/s E - e': 7.53 LVOT Max Gradient: 10.67 mm[Hg] LVOT Area (cm2): 1.63 m/s Peak Velocity (LVOT): 1.63 m/s Mean Velocity (LVOT): 1.16 m/s LVOT Diameter 1.86 cm Left Ventricular Ejection Fraction: 61.92 % Left Atrium LA Volume Index (2D A2C): 28.64 ml/m2 Left Atrium Systolic Dimension: 4.90 cm Mitral Valve MV E to A Ratio: 0.74 Mitral Valve A-Wave Peak Velocity: 0.94 m/s Mitral Valve E-Wave Peak Velocity: 0.70 m/s Right Ventricle RV Internal Diastolic Dimension: 3.42 cm Aorta AO Root Diam: 2.52 cm Ascending Ao Diam: 3.30 cm Aortic Valve AoV Area (Peak Rafael): 1.96 cm2, 1.99 cm2 AoV Area (VTI): 1.74 cm2, 1.74 cm2 Peak Velocity(Antegrade Flow): 2.23 m/s, 2.31 m/s Peak Gradient(Antegrade Flow): 19.94 mm[Hg], 21.38 mm[Hg] Mean Velocity(Antegrade Flow): 1.57 m/s, 1.60 m/s Mean Gradient(Antegrade Flow): 11.46 mm[Hg], 11.90 mm[Hg] Velocity Time Integral: 48.78 cm, 48.58 cm Tricuspid Valve Peak Velocity (Regurgitant Flow): 2.83 m/s, 2.59 m/s, 2.82 m/s Pulmonic Valve Mean Gradient: 3.63 mm[Hg], 2.78 mm[Hg], 3.07 mm[Hg] Mean Velocity: 0.91 m/s, 0.76 m/s, 0.81 m/s Peak Velocity: 1.23 m/s Peak Gradient: 6.74 mm[Hg], 5.85 mm[Hg], 5.69 mm[Hg] Right Atrium Right Atrium Systolic Pressure: 29.67 ml, 29.67 ml Dictated by: Robert Tam M.D. on 01/16/2024 at 16:13 Approved by: Robert Tam M.D. on 01/16/2024 at 16:33 Dictated By: Robert Tam M.D. Signed By:01/16/24 1634 DD/ 163 TD/TT: Excelsior Cutter: us Generic External Data Provider [facility] Final Result documented in this encounter Visit Diagnoses Not on filedocumented in this encounter Additional Health Concerns Active Problems Noted Date Diagnosed Date Patient on antidepressant monitoring plan 2023 Assessment Noted Time PHQ-9 Depression Total Score: 13 024 5:58 PM EDT documented as of this encounter Care Teams Pecan Picker Relationship Specialty Start Date End Date Shaikh Villalta MD [address] [place] [address] PCP - [facility] 07/22/23 Yon De La Rosa MD [address] [place] [address] PCP - General Family Medicine 12/02/23 Bonny Shaw NP [address] [place] [address] Nurse Practitioner Family Medicine 12/02/23 10/06/24 Chyuita Sutherland APRN-HOME HEALTH CARE CASE MANAGER [address] [facility] [place] [address] Nurse Practitioner Psychiatry 05/07/24 Bhavin Miranda LPC Yeast Tender Behavioral Health 05/27/24 Romelia Otero NP [address] [place] [address] Nurse Practitioner Family Medicine 10/07/24 documented as of this encounter
--- OUTSIDE RECORDS SUMMARY | 2024-10-13 14:25 | XMS_ITS | Encounter Summary ---
Author Organization [facility] Address [address] [place] [address] Care Team Providers Care Load Tester Name Role Phone Honorio Joyce MD Primary Care Provider [phone] Shaikh TEODORA Villalta Primary Care Provider [phone] Shaikh TEODORA Villalta Primary Care Provider [phone] Shaikh TEODORA Villalta Unavailable [phone] Yon De La Rosa MD Primary Care Provider [phone] ENGINEER Unavailable Chuyita Sutherland MUSHROOM CUTTER-COST CONTROLLER Unavailable Bhavin Miranda PEELER OPERATOR Unavailable Unavailable Romelia Otero ROAD ENGINEER Unavailable [phone] Encounter Details Date Type Department Care Team (Late st Contact Info) Description 02/14/2009 [facility] [address] [place] [address] [place] [phone] Amelia Moody, [facility] [address] [place] [address] Social History Tobacco Use Types Packs/Day Years [...] [address] [place] [address] [place] [address] Chuyita Sutherland, MUSHROOM CUTTER-COST CONTROLLER [address] [place] [address] [place] [address] 11/18/2024 6:00 PM EDT Office Visit [facility] [address] [place] [address] [address], ROAD ENGINEER [address] [place] [address] 12/03/2024 12:00 PM EDT Social Work [facility] [address] [facility] [address] [place] [address] Bhavin Miranda, ADAM documented as of this encounter Visit Diagnoses Not on filedocumented in this encounter Care Teams Load Tester Relationship Specialty Start Date End Date Honorio Joyce MD PCP - General Family Medicine 09/25/22 10/31/22 Shaikh Villalta MD PCP - General Internal Medicine 11/01/22 08/11/23 Shaikh Villalta MD [address] [place] [address] PCP - General Internal Medicine 08/12/23 12/01/23 Shaikh Villalta MD [address] [place] [address] PCP - [facility] 07/22/23 Yon De La Rosa MD [address] [place] [address] PCP - General Family Medicine 12/02/23 Bonny Shaw, BERRY [address] [place] [address] Nurse Practitioner Family Medicine 12/02/23 10/06/24 Chuyita Sutherland, MUSHROOM CUTTER-COST CONTROLLER [address] [facility] [place] [address] Nurse Practitioner Psychiatry 05/07/24 Bhavin Miranda LPC [facility] 05/27/24 Romelia Oetro NP [address] [place] [address] Nurse Practitioner Family Medicine 10/07/24 documented as of this encounter
--- OUTSIDE RECORDS SUMMARY | 2024-10-13 14:25 | XMS_ITS | Encounter Summary ---
Author Organization [facility] Address [address] [place] [address] Care Team Providers Care Communications Billing Analyst Name Role Phone Shaikh TEODORA Villalta Unavailable [phone] Yon De La Rosa MD Primary Care Provider [phone] Bonny Shaw NP Unavailable [phone] Chuyita Sutherland SCREEN PRINTING SUPERVISOR-HEATER HELPER Unavailable Bhavin Miranda LPC Unavailable Unavailable Romelia Otero NP Unavailable [phone] Reason for Visit * Reason Comments Med Refill Encounter Details Date Type Department Care Team ([facility] st Contact Info) Description 09/15/[address] [facility] [address] [facility] [address] [place] [address] Chuyita Sutherland, SCREEN PRINTING SUPERVISOR-HEATER HELPER [address] [facility] [address] [place] [address] Bipolar 2 disorder (HCC) Social History Tobacco Use Types Packs/Day Years Used Date Smoking Tobacco: Former Cigarettes 1.5 40 0 04/22/1987 - 2007 Passive Smoke Exposure: Past Smokeless Tobacco: Never Comments:5-10 years since [facility] smoked. Alcohol Use Standard Drinks/Week Comments Yes [...] How often do you attend chur or mormon services? More than 4 times per year 06/30/2024 Do you belong to any clubs o r organizations such as worship groups, unions, fraternal or athletic groups, or [...] Recorded Patient Health Questionnaire-2 Score 5 07/09/2024 [facility] [place] of Occupat ional Health - Occupational Stress [...] place to sleep or slept in a jail (including now)? No 05/06/2023 Housing Stability Vital Sign Answer Ja e Recorded In the last 12 months, was t here a time when you were not able to pay the mortgage or rent on time? Yes 06/30/2024 In the past 12 months, how m any times have you moved where you were living? 0 06/30/2024 At any time in the past 12 m [facility], were you homeless or living in a jail (including now)? No 06/30/2024 Education Answer Date [...] on file documented as of this encounter Plan of Treatment Upcoming Encounters Date Type Department Care Team (Late st Contact Info) Description 11/17/2024 4:30 PM EDT Office Visit [facility] [address] [facility] [address] [place] [address] Chuyita Sutherland, SCREEN PRINTING SUPERVISOR-HEATER HELPER [address] [facility] [address] [place] [address] 11/18/2024 6:00 PM EDT Office Visit [facility] [address] [place] [address] Romelia Otero NP [address] [place] [address] 12/03/2024 12:00 PM EDT Social Work [facility] [address] [facility] [address] [place] [address] Bhavin Miranda LPC documented as of this encounter Goals Goal Patient Goal Type Associated Problems Recent Progress Patient-Stated? Author Help patient manage antidepressant medication Care Plan Patient on antidepressant monitoring plan No Bonny Torrez NP documented as of this encounter Visit Diagnoses Diagnosis Bipolar 2 disorder (HCC) Other bipolar disorders documented in this encounter Additional Health Concerns Active Problems Noted Date Diagnosed Date Patient on antidepressant monitoring plan 2023 Assessment Noted Time PHQ-9 Depression Total Score: 14 07/09/ 025 11:27 AM EDT documented as of this encounter Care Teams Communications Billing Analyst Relationship Specialty Start Date End Date Shaikh Villalta MD [address] [place] [address] PCP - [facility] 07/22/23 Yon De La Rosa MD [address] [place] [address] PCP - General Family Medicine 12/02/23 Bonny Shaw NP [address] [place] [address] Nurse Practitioner Family Medicine 12/02/23 10/06/24 Chuyita Sutherland, SCREEN PRINTING SUPERVISOR-HEATER HELPER [address] [facility] [place] [address] Nurse Practitioner Psychiatry 05/07/24 Bhavin Miranda LPC Dredge Pipe Operator Behavioral Health 05/27/24 Romelia Otero NP [address] [place] [address] Nurse Practitioner Family Medicine 10/07/24 documented as of this encounter
--- OUTSIDE RECORDS SUMMARY | 2024-10-13 14:25 | XMS_ITS | Encounter Summary ---
Author Organization [facility] Address [address] [place] [address] Care Team Providers Care Brake Lining Curer Name Role Phone Shaikh TEODORA Villalta Unavailable [phone] Yon De La Rosa MD Primary Care Provider [phone] Chuyita Sutherland DANCE HALL HOST/HOSTESS-CLINICIAN ONCOLOGY Unavailable Bhavin Miranda SCREW MACHINE OPERATOR SWISS TYPE Unavailable Unavailable Romelia Otero NP Unavailable [phone] Encounter Details Date Type Department Care Team (Latest Contact Info) Description 10/12/2024 Travel Social History Tobacco Use Types Packs/Day Years [...] How often do you attend chur or catholic services? More than 4 times per year 06/30/2024 Do you belong to any clubs o r organizations such as yazidism groups, unions, fraternal or athletic groups, or [...] Recorded Patient Health Questionnaire-2 Score 5 07/09/2024 [facility] of Occupat ional Health - Occupational Stress [...] place to sleep or slept in a mcc (including now)? No 05/06/2023 Housing Stability Vital Sign Answer Ja e Recorded In the last 12 months, was t here a time when you were not able to pay the mortgage or rent on time? Yes 06/30/2024 In the past 12 months, how m any times have you moved where you were living? 0 06/30/2024 At any time in the past 12 m [facility], were you homeless or living in a mcc (including now)? No 06/30/2024 Education Answer Date [...] CI [address] [facility] [address] [place] [address] Chuyita Sutherland, DANCE HALL HOST/HOSTESS-CLINICIAN ONCOLOGY [address] [facility] [address] [place] [address] 11/18/2024 6:00 PM EDT Office Visit [facility] [address] [place] [address] Romelia Otero NP [address] [place] [address] 12/03/2024 12:00 PM EDT Social Work [facility] [address] [facility] [address] [place] [address] Bhavin Miranda LPC documented as of this [...] documented as of this encounter Care Teams Brake Lining Curer Relationship Specialty Start Date End Date Shaikh Villalta MD [address] [place] [address] PCP - [facility] 07/22/23 Yon De La Rosa MD [address] [place] [address] PCP - General Family Medicine 8/12/24 Chuyita Sutherland, DANCE HALL HOST/HOSTESS-CLINICIAN ONCOLOGY [address] [address] Nurse Practitioner Psychiatry 05/07/24 Bhavin Miranda LPC Therapist Behavioral Health 05/27/24 Romelia Otero NP [address] [place] [address] Nurse Practitioner Family Medicine 10/07/24 documented as of this encounter
--- OUTSIDE RECORDS SUMMARY | 2024-10-13 14:25 | XMS_ITS | Encounter Summary ---
Author Organization [facility] Address [address] [place] [address] Care Team Providers Care Safety Net Maker Name Role Phone Shaikh TEODORA Villalta Unavailable [phone] Yon De La Rosa MD Primary Care Provider [phone] Chuyita Sutherland HAND NAILER-STRATEGIC PLANNING ANALYST Unavailable Bhavin Miranda LPC Unavailable Unavailable Romelia Otreo NP Unavailable [phone] Encounter Details Date Type Department Care Team (Late st Contact Info) Description 10/13/2024 Bamboo flowsheet [facility] [address] [facility] [address] [place] [address] Chuyita Sutherland, HAND NAILER-STRATEGIC PLANNING ANALYST [address] [facility] 160 [place], [place] [address] Social History Tobacco Use Types Packs/Day Years Used Date Smoking Tobacco: Former Cigarettes 1.5 40 0 04/22/1987 - 2007 Passive Smoke Exposure: Past Smokeless Tobacco: Never Comments:5-10 years since [facility] smoked. Alcohol Use Standard Drinks/Week [...] week 06/30/2024 How often do you attend [facility] or druze services? More than 4 times per year 06/30/2024 Do you belong to any clubs o r organizations such as yazidi groups, unions, fraternal or athletic groups, or [...] Recorded Patient Health Questionnaire-2 Score 5 07/09/2024 [place] of Occupat ional Health - Occupational Stress [...] any time in the past 12 m onths, were you homeless or living in a [...] CI BH [address] [place] [address] [place] [address] Chuyita Sutherland APRN-[facility] [address] [place] [address] [place] [address] 11/18/2024 6:00 PM EDT Office Visit [facility] [address] [place] [address] Romelia Otero NP [address] [place] [address] 12/03/2024 12:00 PM EDT Social Work [facility] [address] [facility] [address] [place] [address] Bhavin Miranda LPC documented as of this [...] documented as of this encounter Care Teams Safety Net Maker Relationship Specialty Start Date End Date Shaikh Villalta MD [address] [place] [address] PCP - [facility] 07/22/23 Yon De La Rosa MD [address] [place] [address] PCP - General Family Medicine 12/02/23 Chuyita Sutherland, HAND NAILER-STRATEGIC PLANNING ANALYST [address] [address] [place] [address] Nurse Practitioner Psychiatry 05/07/24 Bhavin Miranda LPC Interpreter For The Deaf Behavioral Health 05/27/24 Romelia Otero, BERRY [address] [place] [address] Nurse Practitioner Family Medicine 10/07/24 documented as of this encounter
--- OUTSIDE RECORDS SUMMARY | 2024-10-13 14:25 | XMS_ITS | Encounter Summary ---
Author Organization [facility] Address [address] [place] [address] Care Team Providers Care Director Of Marketing Communications Name Role Phone Shaikh TEODORA Villalta Unavailable [phone] Yon De La Rosa MD Primary Care Provider [phone] Bonny Shaw NEUROPSYCHOLOGY SERVICE DIRECTOR Unavailable [phone] Chuyita Sutherland MANUFACTURING TECHNOLOGIST-WATER ANALYST Unavailable Bhavin Miranda LPC Unavailable Unavailable Encounter Details Date Type Department Care Team (Latest Contact Info) Description 10/01/2024 Travel Social History Tobacco Use Types Packs/Day [...] How often do you attend chur or quaker services? More than 4 times per year 06/30/2024 Do you belong to any clubs o r organizations such as rastafari groups, unions, fraternal or athletic groups, or [...] Recorded Patient Health Questionnaire-2 Score 5 07/09/2024 [facility] [place] of Occupat ional Health - Occupational Stress [...] place to sleep or slept in a correction (including now)? No 05/06/2023 Housing Stability Vital Sign Answer Ja e Recorded In the last 12 months, was t here a time when you were not able to pay the mortgage or rent on time? Yes 06/30/2024 In the past 12 months, how m any times have you moved where you were living? 0 06/30/2024 At any time in the past 12 m [facility], were you homeless or living in a correction (including now)? No 06/30/2024 Education Answer Date [...] Visit [facility] [address] [facility] [address] [place] [address] Chuyita Sutherland, MANUFACTURING TECHNOLOGIST-WATER ANALYST [address] [facility] [address] [place] [address] 11/18/2024 6:00 PM EDT Office Visit [facility] [address] [place] [address] Romelia Otero NP [address] [place] [address] 12/03/2024 12:00 PM EDT Social Work [facility] [address] [facility] [address] [place] [address] Bhavin Miranda LPC documented as of this [...] documented as of this encounter Care Teams Director Of Marketing Communications Relationship Specialty Start Date End Date Shaikh Villalta MD [address] [place] [address] PCP - [facility] 07/22/23 Yon De La Rosa MD [address] [place] [address] PCP - General Family Medicine 12/02/23 Bonny Shaw NP [address] [place] [address] Nurse Practitioner Family Medicine 12/02/23 10/06/24 Chuyita Sutherland, MANUFACTURING TECHNOLOGIST-WATER ANALYST [address] [facility] [address] [place] [address] Nurse Practitioner Psychiatry 05/07/24 Bhavin Miranda LPC Men'S Golf Coach Behavioral Health 05/27/24 documented as of this encounter
--- OUTSIDE RECORDS SUMMARY | 2024-10-13 14:25 | XMS_ITS | Clinical Summary ---
Author Organization [facility] Address [address] [place] [address] Care Team Providers Care Senior Manager Mmcoe Name Role Phone Romelia Otero MD Primary Care Provider [phone] Allergies Active Allergy Reactions Criticality Noted Date Comments Metoprolol Other 04/08/2023 Nsaids (Non-Steroidal Anti-Inflammatory Drug) Other 11/12/2023 Kidney issues-sees a pens and pencils dipper Medications aspirin 81 mg EC tablet Take [...] type, unspecified whether angina present, unspecified whether [place] or transplanted heart Take 1 tablet (20 [...] the morning. 90 tablet 3 07/07/19 25 03/17/2 026 Active omeprazole (PriLOSEC) [address] [...] her. Patient will go to her daughters security compliance specialist for PAP smear She will get influenza [...] syndrome 10/02/2017 Hypertension 09/26/2017 Diabetes mellitus 09/26/2017 Encounters Date Type Department Care Team Description 09/01/2024 10:45 AM EDT Office Visit [address] [address] Trey Winston MD HOCM (hypertrophic obstructive cardiomyopathy) (CMS/HCC) (Primary Dx); SVT (supraventricular tachycardia) 08/31/2024 Telephone [facility] [address] [place] [address] Yamile Le MA 08/19/2024 Refill [facility] [address] [place] [address] Yamile Le MA Gastroesophageal reflux disease with esophagitis, unspecified whether hemorrhage from Last 3 Months Immunizations Immunization Administration Dates Next Due Influenza, injectable, MDCK, preservative free, quadrivalent 03/16/2019,04/08/2017 Influenza, injectable, quadrivalent, preservativ e free 04/03/2017 Family History Medical History Relation Name Comments Breast cancer Mother Relation Name Status Comments Mother Social History Tobacco Use Types Packs/Day Years [...] Description 11/10/2024 11:30 AM EDT Office Visit [facility] [address] [place] [address] Trey Winston MD [address] [place] [address] Health Maintenance Due Date Last Done Comments CT Colonography 1965 Colonoscopy 1965 Colorectal Cancer Screening 1965 FIT-DNA 1965 FIT 1965 FOBT 1965 Sigmoidoscopy 1965 Diabetes: Retinopathy Screening 12/11/1975 Depression Screening 1977 Diabetes: Urine Protein Screening 1984 Hepatitis B Vaccines (1 of 3 - 19+ 3-dose series) 1984 Pneumococcal Vaccine: Pediatrics (0 to 5 Years) and At-Risk Patients (6 to 64 Years) (1 of 2 - PCV) 1984 Pap Smear 1986 Adult Tetanus 12/11/1987 Cervical Cancer Screening 12/11/1995 HPV/Cotest 12/11/1995 Zoster Vaccines (1 of 2) 12/11/2015 COVID-19 Vaccine ( season) 2023 08/03/2020, 07/12/2020 Diabetes: Hemoglobin A1C 01/29/2024 10/29/2023 Influenza Vaccine (Season Ended) 2024 06/11/2023, 03/16/2019, 04/08/2017, Additional history exists Mammogram 06/17/2026 06/17/2024, 06/09/2024 HIB Vaccines Aged Out No longer eligi ble based on patient's age to complete this topic HPV Vaccines Aged Out No longer eligi ble based on patient's age to complete this topic IPV Vaccines Aged Out No longer eligi ble based on patient's age to complete this topic Meningococcal B Vaccine Aged Out No l onger eligible based on patient's age to complete this topic Meningococcal Vaccine Aged Out No juan manuel sally eligible based on patient's age to complete this topic Rotavirus Vaccines Aged Out No longer eligible based on patient's age to complete this topic Insurance [facility] MEDICA[facility] Advance Directives Documents on File Type Date Recorded Patient Slot Floor Supervisor Expl anation Power of Property Portfolio Officer 07/27/2022 3:13 PM power material carrier Care Teams Senior Manager Mmcoe Relationship Specialty Start Date End Date Romelia Otero MD [address] [place] [address] PCP - General Nurse Practitioner 07/06/24
--- OUTSIDE RECORDS SUMMARY | 2024-10-13 14:25 | XMS_ITS | Encounter Summary ---
Author Organization [facility] Address [address] [place] [address] Care Team Providers Care Skidder Runner Name Role Phone Shaikh TEODORA Villalta Unavailable [phone] Yon De La Rosa MD Primary Care Provider [phone] Bonny Shaw NP Unavailable [phone] Chuyita Sutherland REAL ESTATE BRANCH MANAGER-HYDROCHLORIC ACID OPERATOR Unavailable Bhavin Miranda LPC Unavailable Unavailable Romelia Otero NP Unavailable [phone] Reason for Visit * Reason Comments Med Refill Encounter Details Date Type Department Care Team (Late st Contact Info) Description 08/20/2024 Refill [facility] [address] [facility] [address] [place] [address] Chuyita Sutherland, REAL ESTATE BRANCH MANAGER-HYDROCHLORIC ACID OPERATOR [address] [facility] [address] [place] [address] Bipolar 2 disorder (HCC) Social History Tobacco Use Types Packs/Day Years Used Date Smoking Tobacco: Former Cigarettes 1.5 40 0 04/22/1987 - 2007 Passive Smoke Exposure: Past Smokeless Tobacco: Never Comments:5-10 years since [facility] smoked. Alcohol Use Standard Drinks/Week Comments [...] How often do you attend chur or sikh services? More than 4 times per year 06/30/2024 Do you belong to any clubs o r organizations such as restorationism groups, unions, fraternal or athletic groups, or [...] Recorded Patient Health Questionnaire-2 Score 5 07/09/2024 [facility] [place] of Occupat ional Health - Occupational Stress [...] place to sleep or slept in a fci (including now)? No 05/06/2023 Housing Stability Vital [...] were you homeless or living in a fci (including now)? No 06/30/2024 Education Answer Date [...] Visit [facility] [address] [facility] [address] [place] [address] Chuyita Sutherland, REAL ESTATE BRANCH MANAGER-HYDROCHLORIC ACID OPERATOR [address] [facility] [address] [place] [address] 11/18/2024 6:00 PM EDT Office Visit [facility] [address] [place] [address] Romelia Otero NP [address] [place] [address] 12/03/2024 12:00 PM EDT Social Work [facility] [address] [facility] [address] [place] [address] Bhavin Miranda LPC documented as of this [...] documented as of this encounter Care Teams Skidder Runner Relationship Specialty Start Date End Date Shaikh Villalta MD [address] [place] [address] PCP - [facility] 07/22/23 Yon De La Rosa MD [address] [place] [address] PCP - General Family Medicine 12/02/23 Bonny Shaw NP [address] [place] [address] Nurse Practitioner Family Medicine 12/02/23 10/06/24 Chuyita Sutherland, REAL ESTATE BRANCH MANAGER-HYDROCHLORIC ACID OPERATOR 112 [facility] [place] [address] Nurse Practitioner Psychiatry 05/07/24 Bhavin Miranda LPC Biostatistics Director Behavioral Health 05/27/24 Romelia Otero NP [address] [place] [address] Nurse Practitioner Family Medicine 10/07/24 documented as of this encounter
--- OUTSIDE RECORDS SUMMARY | 2024-10-13 14:25 | XMS_ITS | Encounter Summary ---
Author Organization [facility] Address [address] [place] [address] Care Team Providers Care Corridor Redevelopment Manager Name Role Phone Shaikh TEODORA Villalta Unavailable [phone] Yon De La Rosa MD Primary Care Provider [phone] Chuyita Sutherland DIP UNIT OPERATOR-SHOWROOM CONSULTANT Unavailable Bhavin Miranda LPC Unavailable Unavailable Romelia Otero NP Unavailable [phone] Encounter Details Date Type Department Care Team (Late st Contact Info) Description 10/07/2024 Bamboo flowsheet [facility] [address] [place] [address] [place] [address] Amelia Moody, [facility] [address] [facility] [place] [address] Social History Tobacco Use Types Packs/Day Years Used Date Smoking Tobacco: Former Cigarettes 1.5 40 0 04/22/1987 - 2007 Passive Smoke Exposure: Past Smokeless Tobacco: Never Comments:5-10 years since [facility] smoked. Alcohol Use Standard Drinks/Week Comments [...] week 06/30/2024 How often do you attend [facility] or episcopal services? More than 4 times per year 06/30/2024 Do you belong to any clubs o r organizations such as oriental orthodox groups, unions, fraternal or athletic groups, or [...] Recorded Patient Health Questionnaire-2 Score 5 07/09/2024 [place] of Occupat ional Health - Occupational Stress [...] place to sleep or slept in a chcf (including now)? No 05/06/2023 Housing Stability Vital Sign Answer Ja e Recorded In the last 12 months, was t here a time when you were not able to pay the mortgage or rent on time? Yes 06/30/2024 In the past 12 months, how m any times have you moved where you were living? 0 06/30/2024 At any time in the past 12 m [facility], were you homeless or living in a chcf (including now)? No 06/30/2024 Education Answer Date [...] [address] [place] [address] [place] [address] Chuyita Sutherland APRN-[employer] [address] [place] [address] [place] [address] 11/18/2024 6:00 PM EDT Office Visit [facility] [address] [place] [address] Romelia Otero NP [address] [place] [address] 12/03/2024 12:00 PM EDT Social Work [facility] [address] [facility] [address] [place] [address] Bhavin Miranda LPC documented as of this [...] documented as of this encounter Care Teams Corridor Redevelopment Manager Relationship Specialty Start Date End Date Shaikh Villalta MD [address] [place] [address] PCP - [facility] 07/22/23 Yon De La Rosa MD [address] [place] [address] PCP - General Family Medicine 12/02/23 Chuyita Sutherland, DIP UNIT OPERATOR-SHOWROOM CONSULTANT [address] [place] [address] [place] [address] Nurse Practitioner Psychiatry 05/07/24 Bhavin Miranda LPC Chief Underwriter Behavioral Health 05/27/24 Romelia Otero NP [address] [place] [address] Nurse Practitioner Family Medicine 10/07/24 documented as of this encounter
--- OUTSIDE RECORDS SUMMARY | 2024-10-13 14:25 | XMS_ITS | Encounter Summary ---
Author Organization [facility] Address [address] [place] [address] Care Team Providers Care Pierce And Shave Press Operator Name Role Phone Shaikh TEODORA Villalta Primary Care Provider [phone] Shaikh TEODORA Villalta Primary Care Provider [phone] Shaikh TEODORA Villalta Unavailable [phone] Yon De La Rosa MD Primary Care Provider [phone] Bonny Shaw FAST BRIM POUNCER Unavailable Chuyita Sutherland SOIL EXPERT-SILK WEAVER Unavailable Bhavin Miranda PUPPY SITTER Unavailable Unavailable Romelia Otero FAST BRIM POUNCER Unavailable [phone] Encounter Details Date Type Department Care Team (Late st Contact Info) Description 05/28/2023 Clinisync Result Encounter [facility] External Department Unsolicited Shaikh Villalta MD [address] [facility] [place] [address] Social History Tobacco Use Types Packs/Day Years Used Date Smoking Tobacco: Former Cigarettes 1 8 - 2007 Smokeless Tobacco: Never Comments:5-10 years since [facility] smoked. Alcohol Use Standard Drinks/Week Comments Not [...] week 05/06/2023 How often do you attend [facility] or restoration services? Never 05/06/2023 Do you belong to any clubs o r organizations such as christianity groups, unions, fraternal or athletic groups, or [...] Answer Date Recorded Patient Health Questionnaire-2 Score 1 05/07/2023 [facility] [place] of Occupat ional Health - Occupational Stress [...] place to sleep or slept in a longterm (including now)? No 05/06/2023 Comments Unknown Sex [...] 11/17/2024 4:30 PM EDT Office [facility] [address] [facility] [address] [place] [address] Chuyita Sutherland, SOIL EXPERT-SILK WEAVER [address] [place] [address] [place] [address] 11/18/2024 6:00 PM EDT Office Visit [facility] [address] [place] [address] Romelia Otero, FAST BRIM POUNCER [address] [place] [address] 12/03/2024 12:00 PM EDT Social Work [facility] [address] [facility] [address] [place] [address] Bhavin Miranda, ADAM documented as of this encounter Procedures Procedure Name Priority Date/Time Associated Diagnosis Comments XR SHOULDER 2+ VIEWS LEFT 05/28/2023 10:43 AM EST documented in this encounter Results * XR shoulder 2+ views left (05/28/2023 10:43 AM EST) Anatomical Region Laterality Modality Upper Extremities, Shoulder Left Radi ographic Imaging 05/28/2023 10:4 3 AM EST Narrative 05/28/2023 10:46 AM EST [address] [address] XRay Report Signed Patient: RAQUEL VILA MR#: [id number] : 1965 Acct:[id number] Age/Sex: 57 / F ADM Date: 05/27/23 Loc: MAMMO Attending Dr: Shaikh Ambar Morin Ordering Physician: Shaikh Mikel Villalta Date of Service: 05/27/23 Procedure(s): XR shoulder LT min 2V Accession Number(s): [id number] cc: Shaikh Mikel Villalta [address] [address] Patient Name: RAQUEL VILA MRN: [id number] date: 1965 Sex: F Assigned Patient Location: MAMMO Current Patient Location: Accession/Order Number: [id number] Exam Date: 05/27/2023 12:28 Report Date: 05/28/2023 10:43 At the request of: SHAIKH AMBAR Procedure: XR shoulder LT min 2V PROCEDURE: XR shoulder LT min 2V HISTORY: acute pain of left shoulder M25.512 COMPARISON: None. FINDINGS: BONES:No fracture, dislocation, bone lesion. Mild degenerative changes acromioclavicular joint. Small degenerative osteophyte along inferior margin of glenoid. SOFT TISSUES:No visible soft tissue swelling. EFFUSION:None visible. OTHER: Negative. XR/XR shoulder LT min 2V IMPRESSION: 1. Mild degenerative changes. 2. No acute bone abnormality. Electronically authenticated by: BRANDON GONZALEZ Date: 05/28/2023 10:43 Dictated By: Brandon Gonzalez M.D. Signed By: 05/28/23 1046 DD/ 1043 TD/TT: Homeopathic Doctor: Procedure Note Radiology, Radiologist, MD - 05/28/2023 [place] [address] XRay Report Signed Patient: RAQUEL VILA LMR#: [id number] : 1965Acct:[id number] Age/Sex: 57 / FADM Date: 05/27/23 Loc: MAMMO Attending Dr: Shaikh Ambar Morin Ordering Physician: Shaikh Mikel Villalta Date of Service: 05/27/23 Procedure(s): XR shoulder LT min 2V Accession Number(s): [id number] cc: Shaikh Mikel Villalta The [address] [address] Patient Name: RAQUEL VILA MRN: [id number] date: 1965 Sex: F [facility] Current Patient Location: Accession/Order Number: [id number] Exam Date: 05/27/2023 12:28 Report Date: 05/28/2023 10:43 At the request of: SHAIKH AMBAR Procedure: XR shoulder LT min 2V PROCEDURE: XR shoulder LT min 2V HISTORY: acute pain of left shoulder M25.512 COMPARISON: None. FINDINGS: BONES:No fracture, dislocation, bone lesion. Mild degenerative changes acromioclavicular joint. Small degenerative osteophyte along inferiormargin of glenoid. SOFT TISSUES:No visible soft tissue swelling. EFFUSION:None visible. OTHER: Negative. XR/XR shoulder LT min 2V IMPRESSION: 1. Mild degenerative changes. 2. No acute bone abnormality. Electronically authenticated by: BRANDON GONZALEZ Date: 05/28/2023 10:43 Dictated By: Brandon Gonzalez M.D. Signed By:05/28/23 1046 DD/ 1043 TD/TT: Homeopathic Doctor: Shaikh Ambar ARAIZA IMG XR PROCEDURES Final Result documented in this encounter Visit Diagnoses Not on filedocumented in this encounter Care Teams Pierce And Shave Press Operator Relationship Specialty Start Date End Date Shaikh Villalta MD PCP - General Internal Medicine 11/01/22 08/11/23 Shaikh Villalta MD [address] [place] [address] PCP - General Internal Medicine 08/12/23 12/01/23 Shaikh Villalta MD [address] [place] [address] PCP - [facility] 07/22/23 Yon De La Rosa MD [address] [place] [address] PCP - General Family Medicine 12/02/23 Bonny Shaw NP [address] [place] [address] Nurse Practitioner Family Medicine 12/02/23 10/06/24 Chuyita Sutherland, SOIL EXPERT-SILK WEAVER [address] [facility] [place] [address] Nurse Practitioner Psychiatry 05/07/24 Bhavin Miranda LPC Roller Operator Behavioral Health 05/27/24 Romelia Otero NP [address] [place] [address] Nurse Practitioner Family Medicine 10/07/24 documented as of this encounter
--- OUTSIDE RECORDS SUMMARY | 2024-10-13 14:25 | XMS_ITS | Encounter Summary ---
Author Organization [facility] Address [address] [place] [address] Care Team Providers Care Craft Superintendent Name Role Phone Shaikh TEODORA Villalta Primary Care Provider [phone] Shaikh TEODORA Villalta Primary Care Provider [phone] Shaikh TEODORA Villalta Unavailable [phone] Yon De La Rosa MD Primary Care Provider [phone] Bonny Shaw HEAVY MEDIA OPERATOR Unavailable Chuyita Sutherland BROOM BUNDLER-ENROBING MACHINE CORDER Unavailable Bhavin Miranda DIRECTOR MEDICARE SALES Unavailable Unavailable Romelia Otero HEAVY MEDIA OPERATOR Unavailable [phone] Encounter Details Date Type Department Care Team (Late st Contact Info) Description 05/27/2023 Clinisync Result Encounter [facility] External Department Unsolicited Shaikh Villalta MD [address] [facility] [place] [address] Social History Tobacco Use Types Packs/Day Years Used Date Smoking Tobacco: Former Cigarettes 1 8 - 2007 Smokeless Tobacco: Never Comments:5-10 years since [facility] smoked. Alcohol Use Standard Drinks/Week Comments [...] week 05/06/2023 How often do you attend [facility] or yazidism services? Never 05/06/2023 Do you belong to any clubs o r organizations such as lutheran groups, unions, fraternal or athletic groups, or [...] Recorded Patient Health Questionnaire-2 Score 1 05/07/2023 [facility] [place] of Occupat ional Health - Occupational Stress [...] place to sleep or slept in a long term (including now)? No 05/06/2023 Comments Unknown Sex [...] 11/17/2024 4:30 PM EDT Office Visit NOMS [facility] [address] [facility] [address] [place] [address] Chuyita Sutherland, BROOM BUNDLER-ENROBING MACHINE CORDER [address] [place] [address] [place] [address] 11/18/2024 6:00 PM EDT Office Visit [facility] [address] [place] [address] Aznorma Romelia, HEAVY MEDIA OPERATOR [address] [place] [address] 12/03/2024 12:00 PM EDT Social Work [facility] [address] [facility] [address] [place] [address] Bhavin Miranda, ADAM documented as of this encounter Procedures Procedure Name Priority Date/Time Associated Diagnosis Comments MM TOMOSYNTHESIS SCREENING BI 05/27/2023 1:49 PM EST documented in this encounter Results * MM TOMOSYNTHESIS SCREENING BI (05/27/2023 1:49 PM EST) Anatomical Region Laterality Modality Other 05/27/2023 1:49 PM EST Narrative 05/27/2023 1:50 PM EST [facility] [place] [id number] Mammography Report Signed Patient: RAQUEL VILA MR#: [id number] : 1965 Acct:[id number] Age/Sex: 57 / F ADM Date: 05/27/23 Loc: MAMMO Attending Dr: Shaikh Ambar Morin Ordering Physician: Shaikh Mikel Villalta Results: Date of Service: 05/27/23 Follow Up: Procedure(s): MM tomosynthesis screening BI Accession Number(s): [id number] cc: Shaikh Mikel Villalta Patient Name: RAQUEL VILA MR#: [id number] : 1965 Exam Date: 05/27/2023 Ordering Doctor: Shaikh Silvino Villalta . RADIOLOGY REPORT PROCEDURE: MM TOMOSYNTHESIS SCREENING BI COMPARISON: MG MAMM SCREEN 3D AARON CAD, 11/08/2020. MG MAMM SCREEN 3D AARON CAD, 02/14/2022. INDICATIONS: screening Calculator Name NCI Breast Cancer Risk Assessment Tool 5 Year Breast Cancer Risk 1.00% Lifetime Breast Cancer Risk 6.50% Personal Breast Cancer No Personal Ovarian Cancer No Treatments None Family Cancers Mother with unknown cancer at age 72. LOCATION: [facility] BREAST COMPOSITION: Scattered areas fibroglandular density. FINDINGS: DIAGNOSTIC CATEGORY 1--NEGATIVE. NO CHANGE FROM COMPARISON ASSESSMENT. RIGHT BREAST: No significant suspicious finding. LEFT BREAST: No significant suspicious finding. RECOMMENDATIONS: ROUTINE MAMMOGRAM AND CLINICAL EVALUATION IN 12 MONTHS. PLEASE NOTE: A NORMAL MAMMOGRAM DOES NOT EXCLUDE THE POSSIBILITY OF BREAST CANCER. A CLINICALLY SUSPICIOUS PALPABLE LUMP SHOULD BE BIOPSIED. Dictated by: Osman Dunn MD on 05/27/2023 at 13:46 Approved by: Osman Dunn MD on 05/27/2023 at 13:48 Dictated By: Osman Dunn M.D. Signed By: 05/27/23 1350 DD/ 1349 TD/TT: Front End Manager: Procedure Note Radiology, Radiologist, - 05/27/2023 [place] [address] Mammography Report Signed Patient: RAQUEL VILA LMR#: [id number] : 1965Acct:[id number] Age/Sex: 57 / FADM Date: 05/27/23 Loc: MAMMO Attending Dr: Shaikh Ambar Morin Ordering Physician: Shaikh Mikel VillaltaResults: Date of Service: 05/27/23Follow Up: Procedure(s): MM tomosynthesis screening BI Accession Number(s): [id number] cc: Shaikh Mikel Villalta Patient Name: RAQUEL VILA MR#: [id number] : 1965 Exam Date: 05/27/2023 Ordering Doctor: Shaikh Silvino Tripathi RADIOLOGY REPORT PROCEDURE: MM TOMOSYNTHESIS SCREENING BI COMPARISON: MG MAMM SCREEN 3D AARON CAD, 11/08/2020. MG MAMM SCREEN 3DBIL CAD, 02/14/2022. INDICATIONS: screening Calculator Name NCI Breast Cancer Risk Assessment Tool 5 Year Breast Cancer Risk 1.00% Lifetime Breast Cancer Risk 6.50% Personal Breast Cancer No Personal Ovarian Cancer No Treatments None Family Cancers Mother with unknown cancer at age 72. LOCATION: [facility] BREAST COMPOSITION: Scattered areas fibroglandular density. FINDINGS: DIAGNOSTIC CATEGORY 1--NEGATIVE. NO CHANGE FROM COMPARISON ASSESSMENT. RIGHT BREAST: No significant suspicious finding. LEFT BREAST: No significant suspicious finding. RECOMMENDATIONS: ROUTINE MAMMOGRAM AND CLINICAL EVALUATION IN 12 MONTHS. PLEASE NOTE: A NORMAL MAMMOGRAM DOES NOT EXCLUDE THE POSSIBILITY OFBREAST CANCER. A CLINICALLY SUSPICIOUS PALPABLE LUMP SHOULD BE BIOPSIED. Dictated by: Osman Dunn MD on 05/27/2023 at 13:46 Approved by: Osman Dunn MD on 05/27/2023 at 13:48 Dictated By: Osman Dunn M.D. Signed By:05/27/23 1350 DD/ 1349 TD/TT: Front End Manager: Shaikh Ambar [facility] Final Result documented in this encounter Visit Diagnoses Not on filedocumented in this encounter Care Teams Craft Superintendent Relationship Specialty Start Date End Date Shaikh Villalta MD PCP - General Internal Medicine 11/01/22 08/11/23 Shaikh Villalta MD [address] [place] [address] PCP - General Internal Medicine 08/12/23 12/01/23 Shaikh Villalta MD [address] [place] [address] PCP - [facility] 07/22/23 Yon DeL a Rosa MD [address] [place] [address] PCP - General Family Medicine 12/02/23 Bonny Shaw NP [address] [place] [address] Nurse Practitioner Family Medicine 12/02/23 10/06/24 Chuyita Sutherland, BROOM BUNDLER-ENROBING MACHINE CORDER [address] [place] [address] [place] [address] Nurse Practitioner Psychiatry 05/07/24 Bhavin Miranda LPC [facility] Behavioral Health 05/27/24 Romelia Otero NP [address] [place] [address] Nurse Practitioner Family Medicine 10/07/24 documented as of this encounter
--- OUTSIDE RECORDS SUMMARY | 2024-10-13 14:25 | XMS_ITS | Encounter Summary ---
Author Organization [facility] Address [address] [place] [address] Care Team Providers Care Spiritual Minister Name Role Phone Shaikh TEODORA Villalta Primary Care Provider [phone] Shaikh TEODORA Villalta Primary Care Provider [phone] Shaikh TEODORA Villalta Unavailable [phone] Yon De La Rosa MD Primary Care Provider [phone] Bonny Shaw EMPLOYEE RELATIONS ADMINISTRATOR Unavailable [phone] Chuyita Sutherland FOREMAN OR SUPERVISOR AND OPERATOR-TENSILE TESTER Unavailable Bhavin Miranda CLINICAL RESOURCE DIRECTOR Unavailable Unavailable Romelia Otero EMPLOYEE RELATIONS ADMINISTRATOR Unavailable [phone] Encounter Details Date Type Department Care Team (Late st Contact Info) Description 06/17/2023 Clinisync Result Encounter [facility]S External Department Unsolicited Provider, Generic External Data Social History Tobacco Use Types Packs/Day Years Used Date Smoking Tobacco: Former Cigarettes 20 1 988 - 2007 Smokeless Tobacco: Never Comments:5-10 years since mo smoked. Alcohol Use Standard Drinks/Week Comments Not [...] 05/06/2023 How often do you attend chur ch or quaker services? Never 05/06/2023 Do you belong to any clubs o r organizations such as gnosticism groups, unions, fraternal or athletic groups, or [...] Recorded Patient Health Questionnaire-2 Score 1 05/07/2023 [facility] [place] of Occupat ional Health - Occupational Stress [...] 11/17/2024 4:30 PM EDT Office Visit [facility] [address] [facility] [address] [place] [address] Chuyita Sutherland APRN-TENSILE TESTER [address] [facility] [address] [place] [address] 11/18/2024 6:00 PM EDT Office Visit [facility] [address] [place] [address] Romelia Otero, BERRY [address] [place] [address] 12/03/2024 12:00 PM EDT Social Work [facility] [address] [place] [address] [place] [address] Bhavin Miranda, ADAM documented as of this encounter Procedures Procedure Name Priority Date/Time Associated Diagnosis Comments MR SHOULDER LEFT W/O 06/17/2023 5:07 PM EST documented in this encounter Results * MR SHOULDER LEFT W/O (06/17/2023 5:07 PM EST) Anatomical Region Laterality Modality Radiographic Viki ging 06/17/2023 5:07 PM EST Narrative 06/17/2023 5:10 [place] [address] Magnetic Resonance Report Signed Patient: RAQUEL VILA MR#: [id number] : 1965 Acct:[id number] Age/Sex: 57 / F ADM Date: 06/17/23 Loc: MRI Attending Dr: Brandon Luo M.D. Ordering Physician: Brandon Luo M.D. Date of Service: 06/17/23 Procedure(s): MR shoulder LT wo con Accession Number(s): [id number] cc: Brandon Luo M.D.; Shaikh Mikel Villalta The [address] [address] Patient Name: RAQUEL VILA MRN: [id number] date: 1965 Sex: F Assigned Patient Location: MRI Current Patient Location: MRI Accession/Order Number: [id number] Exam Date: 06/17/2023 13:50 Report Date: 06/17/2023 17:07 At the request of: BRANDON LUO Procedure: MR shoulder LT wo con HISTORY: Acute pain of the left shoulder. No known injury. MR SHOULDER LT WO CON: 06/17/2023 1:50 PM EST COMPARISON: Radiographs left shoulder 05/27/2023. TECHNIQUE: Multiplanar, multisequence MRI images of the shoulder were obtained. FINDINGS: A few images are slightly degraded by motion artifact. ACROMIOCLAVICULAR JOINT AND ROTATOR CUFF OUTLET: There are moderate degenerative changes of the acromioclavicular joint with subacromial fat effacement. There is a type I acromion. There is a subacromial enthesophyte. There is a small amount of edema-like signal in the subacromial/subdeltoid space. ROTATOR CUFF: There is a full-thickness tear of the majority of the supraspinatus tendon from the greater tuberosity with retraction of the tendon approximately 2 cm along the superior aspect of the humeral head. There is moderate tendinopathy of the infraspinatus tendon and there is a high-grade partial-thickness tear involving the bursal surface of the distal 2 cm of the anterior half of the tendon with severe thinning of the tendon in this region. There is severe tendinopathy of the distal subscapularis tendon. Superimposed on this tendinopathy is a moderate-grade longitudinal intrasubstance tear of the distal 1.1 cm of the tendon involving approximately 50% of tendon thickness. There is mild atrophy of the supraspinatus and infraspinatus muscles. There is no atrophy of the remainder of the rotator cuff muscles. BICEPS TENDON AND LABRUM: There is medial subluxation of the long bicipital tendon from the bicipital groove and there is a focal high-grade longitudinal partial-thickness tear of the proximal long bicipital tendon. There is a moderate amount of fluid surrounding the tendon within the bicipital groove. There is mild degenerative blunting of the free edge of the superior labrum. The remainder of the labrum appears within normal limits. GLENOHUMERAL JOINT: The articular cartilage appears grossly within normal limits. There is a small joint effusion. BONES: The bone marrow signal intensity is age appropriate. There is enthesophyte formation and subcortical cystic change with bone marrow edema involving the anterior greater tuberosity. There is also mild subcortical cystic change and bone marrow edema within the lesser tuberosity. MR/MR shoulder LT wo con IMPRESSION: 1. Full-thickness tear of the majority of the supraspinatus tendon with tendon retraction of approximately 2 cm. There is also moderate tendinopathy and a high-grade partial-thickness tear of the bursal surface of the distal 2 cm of the anterior half of the infraspinatus tendon. There is mild atrophy of these muscles. 2. Severe tendinopathy and moderate-grade longitudinal intrasubstance tear of the distal 1.1 cm of the subscapularis tendon. This is associated with medial subluxation of the long bicipital tendon from the bicipital groove and there is a focal high-grade longitudinal partial-thickness tear of the proximal long bicipital tendon. 3. Moderate acromioclavicular joint osteoarthritis with subacromial fat effacement. There is also a small subacromial enthesophyte. These findings are a likely cause for rotator cuff impingement syndrome. Electronically authenticated by: LISBETH GODWIN Date: 06/17/2023 17:07 Dictated By: Lisbeth Godwin M.D. Signed By: 06/17/231709 DD/ 06 TD/TT: Construction And Maintenance Inspector: Procedure Note Radiology, Radiologist, MD - 06/17/2023 [place] [address] Magnetic Resonance Report Signed Patient: RAQUEL VILA LMR#: [id number] : 1965Acct:[id number] Age/Sex: 57 / FADM Date: 06/17/23 Loc: MRI Attending Dr: Brandon Luo M.D. Ordering Physician: Brandon Luo M.D. Date of Service: 06/17/23 Procedure(s): MR shoulder LT wo con Accession Number(s): [id number] cc: Brandon Luo M.D.; Shaikh Mikel Villalta [facility] [place] [id number] Patient Name: RAQUEL VILA MRN: [id number] date: 1965 Sex: F Assigned Patient Location: MRI Current Patient Location: MRI Accession/Order Number: [id number] Exam Date: 06/17/2023 13:50 Report Date: 06/17/2023 17:07 At the request of: BRANDON LUO Procedure: MR shoulder LT wo con HISTORY: Acute pain of the left shoulder. No known injury. MR SHOULDER LT WO CON: 06/17/2023 1:50 PM EST COMPARISON: Radiographs left shoulder 05/27/2023. TECHNIQUE: Multiplanar, multisequence MRI images of the shoulder were obtained. FINDINGS: A few images are slightly degraded by motion artifact. ACROMIOCLAVICULAR JOINT AND ROTATOR CUFF OUTLET: There are moderate degenerative changes of the acromioclavicular joint with subacromial fat effacement. There is a type I acromion. There is a subacromialenthesophyte. There is a small amount of edema-like signal in the subacromial/subdeltoid space. ROTATOR CUFF: There is a full-thickness tear of the majority of the supraspinatus tendon from the greater tuberosity with retraction of thetendon approximately 2 cm along the superior aspect of the humeral head. There is moderate tendinopathy of the infraspinatus tendon and there is ahigh-grade partial-thickness tear involving the bursal surface of the distal 2 cm ofthe anterior half of the tendon with severe thinning of the tendon in thisregion. There is severe tendinopathy of the distal subscapularis tendon.Superimposed on this tendinopathy is a moderate-grade longitudinal intrasubstance tearof the distal 1.1 cm of the tendon involving approximately 50% of tendon thickness. There is mild atrophy of the supraspinatus and infraspinatus muscles. There is no atrophy of the remainder of the rotator cuff muscles. BICEPS TENDON AND LABRUM: There is medial subluxation of the longbicipital tendon from the bicipital groove and there is a focal high-gradelongitudinal partial-thickness tear of the proximal long bicipital tendon. There is a moderate amount of fluid surrounding the tendon within the bicipitalgroove. There is mild degenerative blunting of the free edge of the superiorlabrum. The remainder of the labrum appears within normal limits. GLENOHUMERAL JOINT: The articular cartilage appears grossly within normal limits. There is a small joint effusion. BONES: The bone marrow signal intensity is age appropriate. There is enthesophyte formation and subcortical cystic change with bone marrowedema involving the anterior greater tuberosity. There is also mild subcortical cystic change and bone marrow edema within the lesser tuberosity. MR/MR shoulder LT wo con IMPRESSION: 1. Full-thickness tear of the majority of the supraspinatus tendon withtendon retraction of approximately 2 cm. There is also moderate tendinopathy darrick high-grade partial-thickness tear of the bursal surface of the distal 2 cmof the anterior half of the infraspinatus tendon. There is mild atrophy ofthese muscles. 2. Severe tendinopathy and moderate-grade longitudinal intrasubstance tearof the distal 1.1 cm of the subscapularis tendon. This is associated withmedial subluxation of the long bicipital tendon from the bicipital groove andthere is a focal high-grade longitudinal partial-thickness tear of the proximallong bicipital tendon. 3. Moderate acromioclavicular joint osteoarthritis with subacromial fat effacement. There is also a small subacromial enthesophyte. These findingsare a likely cause for rotator cuff impingement syndrome. Electronically authenticated by: LISBETH GODWIN Date: 06/17/2023 17:07 Dictated By: Lisbeth Godwin M.D. Signed By:06/17/231709 DD/ 06 TD/TT: Construction And Maintenance Inspector: us Generic External Data Provider IMG XR PROCEDURES Final Result documented in this encounter Visit Diagnoses Not on filedocumented in this encounter Care Teams Spiritual Minister Relationship Specialty Start Date End Date Shaikh Villalta MD PCP - General Internal Medicine 11/01/22 08/11/23 Shaikh Villalta MD [address] [place] [address] PCP - General Internal Medicine 08/12/23 12/01/23 Shaikh Villalta MD [address] [place] [address] PCP - [facility] 07/22/23 Yon De La Rosa MD [address] [place] [address] PCP - General Family [facility] 12/02/23 Bonny Shaw NP [address] [place] [address] Nurse Practitioner Family Medicine 12/02/23 10/06/24 Chuyita Sutherland, FOREMAN OR SUPERVISOR AND OPERATOR-TENSILE TESTER [address] [facility] [place] [address] Nurse Practitioner Psychiatry 05/07/24 Bhavin Miranda LPC Stretcher Leveler Operator Behavioral Health 05/27/24 Romelia Otero NP [address] [place] [address] Nurse Practitioner Family Medicine 10/07/24 documented as of this encounter
--- OUTSIDE RECORDS SUMMARY | 2024-10-13 14:25 | XMS_ITS | Encounter Summary ---
Author Organization [facility] Address [address] [place] [address] Care Team Providers Care Furniture Restorer Name Role Phone Shaikh TEODORA Villalta Primary Care Provider [phone] Shaikh TEODORA Villalta Primary Care Provider [phone] Shaikh TEODORA Villalta Unavailable [phone] Yon De La Rosa MD Primary Care Provider [phone] Bonny Shaw PROFESSOR OF PHYSICAL EDUCATION Unavailable Chuyita Sutherland TOOL GRINDER OPERATOR SURFACE-DIABETES EDUCATION COORDINATOR Unavailable Bhavin Miranda GENERAL MAINTENANCE ENGINEER Unavailable Unavailable Romelia Otero PROFESSOR OF PHYSICAL EDUCATION Unavailable [phone] Encounter Details Date Type Department Care Team (Late st Contact Info) Description 06/06/2023 [facility] [address] [place] [address] Shaikh Villalta MD [address] [place] [address] Social History Tobacco Use Types Packs/Day Years Used Date Smoking Tobacco: Former Cigarettes 1 20 988 - 2007 Smokeless Tobacco: Never Comments:5-[address] [facility] smoked. Alcohol Use Standard Drinks/Week Comments [...] How often do you attend chur or yarsanism services? Never 05/06/2023 Do you belong to [...] Recorded Patient Health Questionnaire-2 Score 1 05/07/2023 [facility] Occupat ional Health - Occupational Stress [...] place to sleep or slept in a fpc (including now)? No 05/06/2023 Comments Unknown Sex [...] 11/17/2024 4:30 PM EDT Office Visit [facility] [address] [facility] [address] [place] [address] Chuyita Sutherland, TOOL GRINDER OPERATOR SURFACE-DIABETES EDUCATION COORDINATOR [address] [place] [address] [place] [address] 11/18/2024 6:00 PM EDT Office Visit [facility] [address] [place] [address] Romelia Otero, BERRY [address] [place] [address] 12/03/2024 12:00 PM EDT Social Work [facility] [address] [facility] [address] [place] [address] Bhavin Miranda LPC documented as of this encounter Procedures Procedure Name Priority Date/Time Associated Diagnosis Comments XR KNEE AARON 1_2 V Routine 05/27/2023 10:32 AM EST documented in this encounter Results * XR KNEE AARON 1_2 V (05/27/2023 10:32 AM EST) Anatomical Region Laterality Modality Radiographic Viki ging Shaikh Ambar ARAIZA IMG XR PROCEDURES Final Result documented in this encounter Visit Diagnoses Not on filedocumented in this encounter Care Teams Furniture Restorer Relationship Specialty Start Date End Date Shaikh Villalta MD PCP - General Internal Medicine 11/01/22 08/11/23 Shaikh Villalta MD [address] [place] [address] PCP - General Internal Medicine 08/12/23 12/01/23 Shaikh Villalta MD [address] [place] [address] PCP - [facility] 07/22/23 Yon De La Rosa MD [address] [place] [address] PCP - General Family Medicine 12/02/23 Bonny Shaw NP [address] [place] [address] Nurse Practitioner Family Medicine 12/02/23 10/06/24 Chuyita Sutherland APRN-DIABETES EDUCATION COORDINATOR [address] [place] [address] [place] [address] Nurse Practitioner Psychiatry 05/07/24 Bhavin Miranda LPC [facility] 05/27/24 Romelia Otero NP [address] [place] [address] Nurse Practitioner Family Medicine 10/07/24 documented as of this encounter
--- OUTSIDE RECORDS SUMMARY | 2024-10-13 14:25 | XMS_ITS | Encounter Summary ---
Author Organization [facility] Address [address] [place] [address] Care Team Providers Care Superintendent Cemetery Name Role Phone Shaikh TEODORA Villalta Primary Care Provider [phone] Shaikh TEODORA Villalta Primary Care Provider [phone] Shaikh TEODORA Villalta Unavailable [phone] Yon De La Rosa MD Primary Care Provider [phone] [place] SEO TEAM LEAD Unavailable [phone] Chuyita Sutherland VENEER PRESS OPERATOR-SENIOR JAVA SOFTWARE ENGINEER Unavailable Bhavin Miranda POULTRY SCIENTIST Unavailable Unavailable Romelia Otero SEO TEAM LEAD Unavailable [phone] Encounter Details Date Type Department Care Team (Late st Contact Info) Description 05/27/2023 Clinisync Result Encounter [facility] External Department Unsolicited Shaikh Villalta MD [address] [facility] [place] [id number] Social History Tobacco Use Types Packs/Day Years Used Date Smoking Tobacco: Former Cigarettes 1 8 - 2007 Smokeless Tobacco: Never Comments:5-10 years since [facility] smoked. Alcohol Use Standard Drinks/Week Comments [...] week 05/06/2023 How often do you attend [facility] or catholic services? Never 05/06/2023 Do you belong to any clubs o r organizations such as congregational groups, unions, fraternal or athletic groups, or [...] Recorded Patient Health Questionnaire-2 Score 1 05/07/2023 [facility] Gap of Occupat ional Health - Occupational Stress [...] place to sleep or slept in a long-term (including now)? No 05/06/2023 Comments Unknown Sex [...] 11/17/2024 4:30 PM EDT Office Visit [facility] [address] [facility] [address] [place] [address] Chuyita Sutherland, VENEER PRESS OPERATOR-SENIOR JAVA SOFTWARE ENGINEER [address] [place] [address] [place] [address] 11/18/2024 6:00 PM EDT Office Visit [facility] [address] [place] [address] Romelia Otero, SEO TEAM LEAD [address] [place] [address] 12/03/2024 12:00 PM EDT Social Work [facility] [address] [facility] [address] [place] [id number] Bhavin Miranda, ADAM documented as of this encounter Procedures Procedure Name Priority Date/Time Associated Diagnosis Comments XR KNEE AARON 3V 05/27/2023 3:27 PM EST documented in this encounter Results * XR KNEE AARON 3V (05/27/2023 3:27 PM EST) Anatomical Region Laterality Modality Other 05/27/2023 3:27 PM EST Narrative 05/27/2023 3:29 PM EST [address] [address] XRay Report Signed Patient: RAQUEL VILA MR#: [id number] : 1965 Acct:[id number] Age/Sex: 57 / F ADM Date: 05/27/23 Loc: MAMMO Attending Dr: Shaikh Ambar Morin Ordering Physician: Shaikh Mikel Villalta Date of Service: 05/27/23 Procedure(s): XR knee AARON 3V Accession Number(s): [id number] cc: Shaikh Mikel Villalta [address] [address] Patient Name: RAQUEL VILA MRN: [id number] date: 1965 Sex: F Assigned Patient Location: MAMMO Current Patient Location: MAMMO Accession/Order Number: [id number] Exam Date: 05/27/2023 12:28 Report Date: 05/27/2023 15:27 At the request of: SHAIKH AMBAR Procedure: XR knee AARON 3V EXAMINATION: XR knee AARON 3V HISTORY: chronic pain of both knees M25.561, M25.562, G89.29 COMPARISON: 06/25/2023 FINDINGS: RIGHT FINDINGS: BONES: No acute fracture or dislocation. Moderate tricompartmental osteoarthropathy with moderate narrowing of medial joint space with marginal osteophyte formation SOFT TISSUES: Negative. No visible soft tissue swelling. OTHER: Negative. LEFT FINDINGS: BONES: No acute fracture or dislocation. Moderate to severe tricompartmental osteoarthropathy with [id number] articulation of the medial compartment. Marginal osteophyte formation SOFT TISSUES: Negative. No visible soft tissue swelling. OTHER: Negative. XR/XR knee AARON 3V IMPRESSION: RIGHT CONCLUSION: Moderate osteoarthritis LEFT CONCLUSION: Moderate to severe osteoarthritis Electronically authenticated by: DAMIEN LICEA Date: 05/27/2023 15:27 Dictated By: Damien Licea M.D. Signed By: 05/27/23 1529 DD/ 1527 TD/TT: Clinical Pharmacy Specialist: Procedure Note Radiology, Radiologist, MD - 05/27/2023 [place] [address] XRay Report Signed Patient: RAQUEL VILA LMR#: [id number] : 1965Acct:[id number] Age/Sex: 57 / FADM Date: 05/27/23 Loc: MAMMO Attending Dr: Shaikh Ambar Morin Ordering Physician: Shaikh Mikel Villalta Date of Service: 05/27/23 Procedure(s): XR knee AARON 3V Accession Number(s): [id number] cc: Shaikh Mikel Villalta [address] [place] [address] Patient Name: RAQUEL VILA MRN: [id number] date: 1965 Sex: F Assigned Patient Location: MAMMO Current Patient Location: MAMMO Accession/Order Number: [id number] Exam Date: 05/27/2023 12:28 Report Date: 05/27/2023 15:27 At the request of: SHAIKH AMBAR Procedure: XR knee AARON 3V EXAMINATION: XR knee AARON 3V HISTORY: chronic pain of both knees M25.561, M25.562, G89.29 COMPARISON: 06/25/2023 FINDINGS: RIGHT FINDINGS: BONES: No acute fracture or dislocation. Moderate tricompartmental osteoarthropathy with moderate narrowing of medial joint space withmarginal osteophyte formation SOFT TISSUES: Negative. No visible soft tissue swelling. OTHER: Negative. LEFT FINDINGS: BONES: No acute fracture or dislocation. Moderate to severetricompartmental osteoarthropathy with [id number] articulation of the medial compartment. Marginal osteophyte formation SOFT TISSUES: Negative. No visible soft tissue swelling. OTHER: Negative. XR/XR knee AARON 3V IMPRESSION: RIGHT CONCLUSION: Moderate osteoarthritis LEFT CONCLUSION: Moderate to severe osteoarthritis Electronically authenticated by: DAMIEN LICEA Date: 05/27/2023 15:27 Dictated By: Damien Licea M.D. Signed By:05/27/23 1529 DD/ 1527 TD/TT: Clinical Pharmacy Specialist: Shaikh Ambar [facility] Final Result documented in this encounter Visit Diagnoses Not on filedocumented in this encounter Care Teams Superintendent Cemetery Relationship Specialty Start Date End Date Shaikh Villalta MD PCP - General Internal Medicine 11/01/22 08/11/23 Shaikh Villalta MD [address] [place] [phone] PCP - General Internal Medicine 08/12/23 12/01/23 Shaikh Villalta MD [address] [place] [phone] PCP - [facility] 07/22/23 Yon De La Rosa MD [address] [place] [phone] PCP - General Family Medicine 12/02/23 Bonny Shaw NP [address] [place] [phone] Nurse Practitioner Family Medicine 12/02/23 10/06/24 Chuyita Sutherland APRN-SENIOR JAVA SOFTWARE ENGINEER [address] [address] Nurse Practitioner Psychiatry 05/07/24 Bhavin Miranda LPC [facility] 05/27/24 Romelia Otero NP [address] [place] [address] Nurse Practitioner Family Medicine 10/07/24 documented as of this encounter
--- OUTSIDE RECORDS SUMMARY | 2024-10-13 14:25 | XMS_ITS | Clinical Summary ---
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 Bhavin Miranda DUSTER TENDER Unavailable Unavailable Romelia Oetro NP Unavailable [phone] Allergies Active Allergy Reactions Criticality Noted Date Comments Beta Adrenergic Blockers 04/08/2023 Metoprolol 04/08/2023 Nsaids 11/12/2023 Kidney issues-sees a deputy director of nursing Medications furosemide (Lasix) 40 MG tablet Take 40 mg by mouth Daily Active aspirin 81 MG EC tablet Take 81 mg by mouth Daily Active ALPRAZolam (Xanax) 0.5 MG tabletIndications :Severe episode of recurrent major depressive disorder, without psychotic features (HCC),Generalized anxiety disorder Take 1 tablet (0.5 mg) by mouth 3 (three) times a day as needed for anxiety 90 tablet Active diphenhydrAMINE-a cetaminophen (Tylenol PM) 25-500 MG per tablet Take 2 tablets by mouth as needed at bedtime for sleep Active omeprazole (PriLOSEC) [address] capsule Take 20 mg by mouth in the morning. Take before meals. Active melatonin 10 MG tablet Take 1 tablet by mouth as needed at bedtime Active fluticasone (Flonase) 50 MCG/ACT nasal sprayIndications: Chronic rhinitis Administer 2 sprays into each nostril Daily Shake gently. Before first use, prime pump. After use, clean tip and replace cap. 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 60 capsule 2 Active carvedilol (Coreg) 6.25 MG tablet Take 6.25 mg by mouth in the morning and 6.25 mg in the evening. Take with meals. Active traMADol (Ultram) 50 MG tablet Take 50 mg by mouth every 6 (six) hours if needed Active pramipexole (Mirapex) 1 MG tabletIndications :Restless legs syndrome Take 1 tablet (1 mg) by mouth Daily 90 tablet 1 Active carvedilol (Coreg) 3.125 MG tablet Take 3.125 mg by mouth in the morning and 3.125 mg in the evening. Take with meals. Active lisinopril 10 MG tablet Take 10 mg by mouth Daily Active liraglutide (Victoza) 18 MG/3ML injectionIndicati ons:Type 2 diabetes mellitus with other specified complication, without long-term current use of insulin (HCC) 0.6mg daily for 1 week, then 1.2mg daily for 1 week then increase to 1.8mg daily 9 mL 2 Active Additional Information Patient taking differently: 1.8 mg Subcutaneous Daily, 0.6mg daily for 1 week, then 1.2mg daily for 1 week then increase to 1.8mg daily, Reported on 10/13/2024 cholecalciferol (Vitamin D-3) 50 MCG (1999 PA) tabletIndications :CKD (chronic kidney disease) stage 4, GFR 15-29 ml/min ([facility]) Take 1 tablet (50 mcg) by mouth in the morning. 90 tablet 025 2024 Active atorvastatin (Lipitor) 20 MG tabletIndications :Hyperlipidemia, unspecified hyperlipidemia type Take 1 tablet (20 mg) by mouth Daily 90 tablet 025 2024 Active dapagliflozin (Farxiga) 10 MGIndications:CKD (chronic kidney disease) stage 4, GFR 15-29 ml/min ([facility]),Type 2 diabetes mellitus with stage 4 chronic kidney disease, without long-term current use of insulin (HCC) Take 1 tablet (10 mg) by mouth Daily 90 tablet 025 2024 Active buPROPion XL (Wellbutrin XL) 150 MG 24 hr tabletIndications :Bipolar 2 disorder (HCC) Take 1 tablet (150 mg) by mouth in the morning. Do not crush, chew, or split. 30 tablet 1 025 2025 Active escitalopram (Lexapro) 10 MG tabletIndications :Bipolar 2 disorder (HCC) Take 1 tablet (10 mg) by mouth Daily 30 tablet 1 025 2025 Active traZODone (Desyrel) 50 MG tabletIndications :Insomnia, unspecified type Take 1 tablet (50 mg) by mouth as needed at bedtime for sleep 90 tablet 025 2024 Active Lumateperone Tosylate (Caplyta) 42 MG capsuleIndication s:Bipolar 2 disorder (HCC) Take 1 capsule by mouth at bedtime 30 capsule 1 Active dapagliflozin (Farxiga) 10 MGIndications:CKD (chronic kidney disease) stage 4, GFR 15-29 ml/min ([facility]),Type 2 diabetes mellitus with stage 4 chronic kidney disease, without long-term current use of insulin ([facility]) Take 1 tablet (10 mg) by mouth Daily 90 tablet 1 024 2024 Discontinued(R eorder) atorvastatin (Lipitor) 20 MG tabletIndications :Hyperlipidemia, unspecified hyperlipidemia type Take 1 tablet (20 mg) by mouth Daily 90 tablet 025 2024 Discontinued(R eorder) magnesium oxide (Mag-Ox) 400 (240 Mg) MG tabletIndications :Chronic diastolic heart failure (HCC),Restless legs syndrome Take 1 tablet (400 mg) by mouth in the morning. 90 tablet 025 2024 traZODone (Desyrel) 50 MG tabletIndications :Insomnia, unspecified type Take 1 tablet (50 mg) by mouth as needed at bedtime for sleep 90 tablet 1 025 2024 Discontinued(R eorder) buPROPion XL (Wellbutrin XL) 150 MG 24 hr tabletIndications :Bipolar 2 disorder (HCC) Take 1 tablet (150 mg) by mouth in the morning. Do not crush, chew, or split.. 30 tablet 1 025 2024 Discontinued(R eorder) cholecalciferol (Vitamin D-3) 50 MCG (1999) tabletIndications :CKD (chronic kidney disease) stage 4, GFR 15-29 ml/min ([facility]) Take 2,000 Units by mouth in the morning. 30 tablet 2 025 2024 Discontinued Lumateperone Tosylate (Caplyta) 42 MG capsuleIndication s:Bipolar 2 disorder (HCC) Take 1 capsule by mouth at bedtime 30 capsule 1 025 2024 Discontinued(R eorder) escitalopram (Lexapro) 10 MG tabletIndications :Bipolar 2 disorder (HCC) Take 1 tablet (10 mg) by mouth Daily 30 tablet 1 025 2024 Discontinued(R eorder) Restasis 0.05 % ophthalmic emulsion INSTILL 1 DROP IN BOTH EYES TWICE DAILY 025 2024 Discontinued(S javi effects) liraglutide (Victoza) 18 MG/3ML injectionIndicati ons:Type 2 diabetes mellitus with other specified complication, without long-term current use of insulin ([facility]) 0.6mg daily for 1 week, then 1.2mg daily for 1 week then increase to 1.8mg daily 9 mL 2 025 2024 Discontinued(R eorder) Hospital, Clinic, or Other Facility Administered Medication Ordered Dose Route Frequency Start Date End Date Status iopamidol (Isovue-300) 61 % injection 30 mLIndications:Thyroid nodule,Neck mass 30 mL IV Once in imaging 09/23/2024 09/23/2024 End ed Active Problems Problem Noted Date Diagnosed Date Bipolar 2 disorder 07/22/2024 Insomnia 07/22/2024 Assessment & Plan (09/15/2024 6:57 AM EDT): Current med: trazodone Morbid (severe) obesity due to excess calories 0 07/01/2024 Assessment & Plan (09/15/2024 6:54 AM EDT): Discussed with patient their BMI (actual, verses recommended). We have also discussed lifestyle modifications: attempts to perform physical activity as chronic conditions allow, also to monitor dietary intake: increasing protein/fruits/veggies and lowering carb intake (unless contraindicated). Limit sodas, juices, and sugary drinks.. Assessment & Plan (07/01/2024 7:05 AM EDT): Discussed with patient their BMI (actual, verses recommended). We have also discussed lifestyle modifications: attempts to perform physical activity as chronic conditions allow, also to monitor dietary intake: increasing protein/fruits/veggies and lowering carb intake (unless contraindicated). Limit sodas, juices, and sugary drinks.. Body mass index (BMI) 40.0-44.9, adult 5 Postmenopausal bleeding 07/01/2024 Encounter for wellness examination in adult 06/20 Assessment & Plan (09/15/2024 12:18 PM EDT): Reviewed Ht/Wt/BMI Recommend eye exam yearly Recommend dental exams twice a year Balance work/leisure activities Exercises is recommended most days of the week (appropriate as chronic conditions allow) Follow up yearly and prn Assessment & Plan (07/01/2024 7:03 AM EDT): Reviewed Ht/Wt/BMI Recommend eye exam yearly Recommend dental exams twice a year Balance work/leisure activities Exercises is recommended most days of the week (appropriate as chronic conditions allow) Follow up yearly and prn Type 2 diabetes mellitus, wi thout long-term current use of insulin 07/01/2024 Assessment & Plan (09/15/2024 12:02 PM EDT): Check blood sugars daily, notify if <70 or >200. Take medications (pills or insulin) as directed. Monitor for s/s of hypoglycemia (sweaty, dizziness, nausea, vomiting, or shakiness). Watch for increase in thirst, urination, or appetite. Inspect feet frequently monitoring for open wounds , and also recommend yearly eye exam. Pt should attempt to remain as physically active as chronic conditions allow, as well as trying to follow a diet low in carbohydrates, and simple sugars. Current meds: statin, farxiga, maira (Was on ozempic last year, insurance no longer approved, Metformin: excessive diarrhea, AC: contra indicated d/t CKD stage 4, ) Is on SGLT 2 does have Weight gain, heart failure dx A1c: 9.9% 09/15/24 Assessment & Plan (07/01/2024 2:18 PM EDT): Check blood sugars daily, notify if <70 or >200. Take medications (pills or insulin) as directed. Monitor for s/s of hypoglycemia (sweaty, dizziness, nausea, vomiting, or shakiness). Watch for increase in thirst, urination, or appetite. Inspect feet frequently monitoring for open wounds , and also recommend yearly eye exam. Pt should attempt to remain as physically active as chronic conditions allow, as well as trying to follow a diet low in carbohydrates, and simple sugars. Current meds: statin, farxiga, maira A1c: 9.9 on 05/27/24 Was on ozempic last year, insurance no longer approved Metformin: excessive diarrhea AC: contra indicated d/t CKD stage 4 Is on SGLT 2 Weight gain, heart failure dx Menopause 07/01/2024 Primary osteoarthritis of both knees 06/18/2024 Rotator cuff arthropathy of right shoulder 06/18 Abnormality of left breast on screening mammogra m 06/18/2024 Osteoarthritis of both knees 03/09/2024 Assessment & Plan (07/01/2024 1:54 PM EDT): Follow w ortho for knees, [facility] Going have injections and back to PT Assessment & Plan (03/09/2024 1:08 PM EST): Xray done 6 months ago show moderate to severe Osteoarthritis in Bilateral knees. Has not talked with ortho about it yet. Reports difficulty ambulating far distances due to pain. States pain is continuous Rates pain at a 6 on scale of 0-10 Will discuss with ortho. Requests handicap bony today. Pre-operative clearance 10/23/2023 Assessment & Plan (10/23/2023 3:35 PM EDT): Surgical Clearance requested by Orthopedic surgery for [...] arthroplasty and rotator cuff repair under [place]. Neurologic disorder associated with diabetes jennifer litus 08/12/2023 Assessment & Plan (09/10/2023 4:09 PM EDT): Poorly controlled painful neuropathy. Currently on Lyrica. C/w same. CKD (chronic kidney disease) stage 4, GFR 15-29 ml/min 08/12/2023 Assessment & Plan (09/15/2024 6:54 AM EDT): Monitor labs, control chronic conditions such as : DM, and HTN Alvarez Assessment & Plan (07/01/2024 1:53 PM EDT): Monitor labs, control chronic conditions such as : DM, and HTN Alvarez Assessment & Plan (12/17/2023 8:49 PM EDT): eGFR 51 Creatnine 1.23 Stable. Continue to monitor. Avoid nephrotoxic agents. Assessment & Plan (09/10/2023 4:08 PM EDT): Due to T2 DM. Cr stable. BP and T2 DM well controlled. On Farga Assessment & Plan (08/12/2023 6:13 PM EDT): Due to T2 DM. Cr stable. BP and T2 DM well controlled. Chronic left shoulder pain 08/12/2023 Assessment & Plan (08/19/2023 5:26 PM EDT): Ongoing for years, pain is worse and persistent. No response to tylenol. Can't take NSAIDS. MRI shows full thickness tear of rotator cuff tear. Pt could not tolerate oxycodone and it made her feel too drowsy and sleepy. Will use Arcadia instead and see if that helps. Patient educated and counseled on safe use of opioids. She was also educated on the need to see orthopedic surgeon and that she will likely require surgery for her shoulder. Assessment & Plan (08/12/2023 6:28 PM EDT): Ongoing for years, pain is worse and persistent. No response to tylenol. Can't take NSAIDS. Will prescribe oxycodone as needed for pain. Discussed safe use of opioids, risk of addiction and dependence. Follow up in 7 days. Cardiomyopathy 05/07/2023 Type 2 diabetes mellitus wit h stage 4 chronic kidney disease, without long-term current use of insulin 05/07/2023 Assessment & Plan (05/27/2024 11:36 AM EST): Currently taking [id number]; Most recent labs: hemoglobin A1C 9.9% This is a significant increase from 5.7 7 months ago. Pt has tried Semaglutide in the past- stopped due to insurance coverage. Is requesting to trial Mounjaro. Will initiate Mounjaro today. If pt tolerates will increase at next OV in 4 weeks. No episode of hypoglycemia No medication adverse effects reported by the patient. Patient educated on lifestyle modifications, dietary restrictions, signs and symptoms of hypoglycemia/hyperglycemia and importance of eating regular consistent meals. Stressed upon importance of checking blood glucose at home and bring blood glucose log to appointments. All questions, concerns answered and addressed. Encouraged to call office if persistent hypoglycemia/hyperglycemia on home glucose monitoring noted. DM Eye Exam: 07/2023 Assessment & Plan (03/09/2024 1:06 PM EST): Currently taking [id number]; Semaglutide 2mg; Was previously on Ozempic but insurance stopped covering. Has been off Ozempic for 3 months. Most recent labs: hemoglobin A1C 5.7% Due to be checked- pt reports Nephrology checks A1C and declines order from me today, I questioned if she was certain nephrology orders an A1C, pt states she will call office if nephrology does not order. Average FSBS range from BGs range between 107 and 115 No episode of hypoglycemia No medication adverse effects reported by the patient. Patient educated on lifestyle modifications, dietary restrictions, signs and symptoms of hypoglycemia/hyperglycemia and importance of eating regular consistent meals. Stressed upon importance of checking blood glucose at home and bring blood glucose log to appointments. All questions, concerns answered and addressed. Encouraged to call office if persistent hypoglycemia/hyperglycemia on home glucose monitoring noted. DM Eye Exam: 07/2023 Assessment & Plan (12/17/2023 8:51 PM EDT): Most recent A1C 5.7% No episode of hypoglycemia No medication adverse effects reported by the patient. Patient educated on lifestyle modifications, dietary restrictions, signs and symptoms of hypoglycemia/hyperglycemia and importance of eating regular consistent meals. Stressed upon importance of checking blood glucose at home and bring blood glucose log to appointments. All questions, concerns answered and addressed. Encouraged to call office if persistent hypoglycemia/hyperglycemia on home glucose monitoring noted. Continue with Farxiga and Semaglutide Assessment & Plan (10/08/2023 12:01 PM EDT): A1C 5.6 10/13 Discontinue glimepiride. Denies hypoglycemia. C/w farxiga and ozempic. Assessment & Plan (09/10/2023 4:10 PM EDT): A1C 5.6 Her FSBS have been as low as 60 on a few occasions but not anymore since glimepiride was decreased. Currently on ozempic, jardiance and glimepiride. Monitor blood glucose. Plan is to discontinue glimepiride due to hx of CKD Assessment & Plan (08/12/2023 6:14 PM EDT): A1C 5.6 Her FSBS have been as low as 60 on a few occasions. Currently on ozempic, jardiance and glimepiride. Decrease glimepiride to 2 q12. Monitor blood glucose. Plan is to discontinue glimepiride. Assessment & Plan (05/07/2023 3:57 PM EST): Patient on Glimepiride, Farxiga and Ozempic. She denies hypoglycemia and her blood glucose have been in acceptable range. She has however gained weight while on Ozempic and inquiring about possibility of switching over to Mounjaro. Patient counseled and educated on adverse effects, drug interactions and to reach out to office/pharmacy if questions or concerns related to new medications. Ordered A1C. Discussed lifestyle measures. [facility]. Diastolic heart failure 06/11/2022 Assessment & Plan (07/01/2024 1:53 PM EDT): Current meds; b geovanny, maira, diuretic Cardiology [facility] q 6 month Assessment & Plan (09/10/2023 4:09 PM EDT): Chronic diastolic HF. Doing well. Follows Cardiology. Assessment & Plan (08/12/2023 6:12 PM EDT): Chronic diastolic HF. Doing well. Follows Cardiology. Assessment & Plan (05/07/2023 3:54 PM EST): Chronic diastolic HF. Doing well. Follows Cardiology. History of pulmonary embolism 06/11/2022 Hyperlipidemia 06/11/2022 Assessment & Plan (12/17/2023 8:52 PM EDT): Atorvastatin 20mg Denies Myalgias. Continue with current regimen. Recheck Lipid Panel today. Assessment & Plan (10/08/2023 12:02 PM EDT): On lipitor. C/w same Assessment & Plan (05/07/2023 3:59 PM EST): On lipitor. Check lipid panel Restless legs syndrome 06/11/2022 Assessment & Plan (05/07/2023 3:53 PM EST): On Mirapex 1 mg daily. Has noticed lately that her symptoms are getting worse. She has not been using her magnesium. Will resume her magnesium and follow up to see if it has any affects on her symptoms. Vascular insufficiency 06/11/2022 Vitamin D deficiency 06/11/2022 Generalized anxiety disorder 03/22/2021 Assessment & Plan (10/08/2023 12:02 PM EDT): Started on lexapro last appt, slightly better. Increased to 20 mg today. Follow up in 2 months. C/w buspirone 7.5 q12 - plan to discontinue it down the road Assessment & Plan (09/10/2023 4:12 PM EDT): Previously well controlled, acutely worsened due to stress at work. Start on lexapro, decrease buspirone. Assessment & Plan (05/07/2023 3:58 PM EST): Well controlled on buspirone. Severe episode of recurrent major depressive disorder, without psychotic features 03/22/2021 Assessment & Plan (09/15/2024 6:57 AM EDT): Current meds: xanax prn, wellbutrin, lexapro, captlyta Assessment & Plan (05/27/2024 11:26 AM EST): Currently following with -Chuyita Sutherland & Lydia for counseling. Had several medication changes recently Currently taking Caplyta, Lexapro, Wellbutrin, and Alprazolam PRN. States she rarely uses Alprazolam- has been quite some time since she has needed it for breakthrough anxiety. Denies SI/HI. Continue current regimen as directed by . Assessment & Plan (03/09/2024 1:05 PM EST): Poorly controlled. Has tried numerous medications on the past. Currently taking Lexapro 20mg Buspirone 15mg Xanax 0.5mg TID PRN Reports she feels lexapro is causing sexual dysfunction., and that her anxiety/depression are not improved. Does see a counselor once per month at [facility]. Is agreeable to referral at this time. Will refer to [facility] for medication management Assessment & Plan (10/08/2023 12:04 PM EDT): Poorly controlled, acutely worsened due to increased stress at work. Improved with addition of Lexapro. Increase lexapro to 20 mg. C/w Wellbutrin, Buspirone and trazodone. Plan to discontinue buspirone down the road if symptoms well controlled with increased dose of lexapro. Follow up in 2 months Assessment & Plan (09/10/2023 4:11 PM EDT): Poorly controlled, acutely worsened due to increased stress at work. On Wellbutrin, Buspirone Will start on Lexapro. Decrease buspirone to 7.5 q12 C/w wellbutrin. Follow up in 4 weeks Hypertrophic obstructive cardiomyopathy 07/29/19 19 Obstructive sleep apnea syndrome 10/02/2017 Assessment & Plan (07/01/2024 1:51 PM EDT): You have a diagnosis of obstructive sleep apnea. It is recommended that you wear your PAP device any time while in bed sleeping. Not using the PAP device can increase your risk of elevated/uncontrolled high blood pressure, atrial fibrillation, heart attack, stroke, or sudden . Compliance with PAP: yes How many hours of use per night: 4-5 hours Do you feel more refreshed in the morning: sometimes yes and no Company that supplies your machine and tubing/filters etc: [employer], not sure of name Doctor that manages your PATRICE: Suyapa Assessment & Plan (05/27/2024 11:27 AM EST): Received a new CPAP. Reports she is now wearing CPAP religiously nightly. States she feels well rested and naps less frequently now. Assessment & Plan (12/18/2023 8:42 AM EDT): Has CPAP, has not been wearing it recently; Is waiting for new CPAP to be delivered. Educated on importance of CPAP adherence. Assessment & Plan (08/12/2023 6:12 PM EDT): Patient reports hx of PATRICE. She reports excessive snoring and daytime sleepiness. She has not had a sleep study for years. Order Sleep study and refer to [facility] Sleep clinic. Hypertension 09/26/2017 Assessment & Plan (09/15/2024 6:54 AM EDT): Please check blood pressure daily and record DASH diet Limit caffeine Take medication as directed Contact office if chest pain, pressure, dizziness, shortness of breath, swelling legs Recommend slow position changes Current meds: carvedilol, lisinopril, Assessment & Plan (07/01/2024 7:03 AM EDT): Please check blood pressure daily and record DASH diet Limit caffeine Take medication as directed Contact office if chest pain, pressure, dizziness, shortness of breath, swelling legs Recommend slow position changes Current meds: carvedilol, lisinopril, Assessment & Plan (05/27/2024 11:19 AM EST): Currently taking Carvedilol 3.125mg Lisinopril 2.5mg Does not check BP at home; Denies orthostatic changes, dizziness, cough, shortness of breath, swelling in extremities. Continue current regimen. Given BP log, advised pt to record BP and bring log back with them to next visit. Assessment & Plan (12/17/2023 8:54 PM EDT): Carvedilol 3.125mg Denies orthostatic changes, Edema in extremities, palpitations, chest pain; Given BP log, encouraged to check BP at home, record results, bring back to next visit. Assessment & Plan (09/10/2023 4:08 PM EDT): BP usually well controlled. On average less than 130/90. Tolerating Anti hypertensive w/o adverse effects. Denies lightheadedness, dizziness, syncope, presyncope. Patient encouraged to continue with home BP monitoring and call office if he experiences orthostatic symptoms or persistently elevated BP. On carvedilol , lisinopril was discontinued Assessment & Plan (08/12/2023 6:12 PM EDT): BP well controlled. On average less than 130/90. Tolerating Anti hypertensive w/o adverse effects. Denies lightheadedness, dizziness, syncope, presyncope. Patient encouraged to continue with home BP monitoring and call office if he experiences orthostatic symptoms or persistently elevated BP. On carvedilol , lisinopril was discontinued Assessment & Plan (05/07/2023 3:54 PM EST): BP well controlled. On average less than 130/90. Tolerating Anti hypertensive w/o adverse effects. Denies lightheadedness, dizziness, syncope, presyncope. Patient encouraged to continue with home BP monitoring and call office if he experiences orthostatic symptoms or persistently elevated BP. On carvedilol and lisinopril Thyroid nodule Multiple thyroid nodules Assessment & Plan (09/15/2024 6:54 AM EDT): Was referred to ENT for evaluation of this Assessment & Plan (07/01/2024 7:05 AM EDT): Was referred to ENT for evaluation of this Resolved Problems Problem Noted Date Diagnosed Date Resolved Date Left shoulder amputee 05/07/20232023 Acute pain of left shoulder 05/07/2023 07/01/2024 Assessment & Plan (05/07/2023 3:55 PM EST): Left shoulder pain ongoing for over a [...] follows up with him later this month. Chronic pain of both knees 05/07/2023 0 07/01/2024 Assessment & Plan (03/09/2024 1:04 PM EST): Xray done 6 months ago show moderate to severe Osteoarthritis in Bilateral knees. Has not talked with ortho about it yet. Reports difficulty ambulating far distances due to pain. States pain is continuous Rates pain at a 6 on scale of 0-10 Will discuss with ortho. Requests handicap placard today. Assessment & Plan (05/07/2023 3:56 PM EST): Chronic, intermittent, mostly posterior knee pain. Likely osteoarthritis. Will order XR bilaterally. Follow up with Orthopedic. Other hyperlipidemia 05/07/2023 025 Annual physical exam 05/07/2023 025 Assessment & Plan (05/07/2023 4:00 PM EST): This was an annual wellness exam. Active problems discussed and addressed this appointment RLS, Type 2 DM, Shoulder pain, knee pain. She is upto date on colonoscopy. Ordered mammogram for her. Patient will go to her daughters clinical nursing professor for PAP smear She will get influenza and Shingles vaccine and make an appointment for it. Type 2 diabetes mellitus 09/26/201703/2025 Encounters Date Type Department Care Team Description 10/13/2024 1:30 PM EDT Office Visit [facility] [address] [facility] [address] [place] [address] Chuyita Sutherland, EMU FARM WORKER-COMPUTER PERIPHERAL EQUIPMENT OPERATOR Bipolar 2 disorder (HCC); Insomnia, unspecified type; Generalized anxiety disorder 10/13/2024 Bamboo flowsheet [facility] [address] [facility] [address] [place] [address] Chuyita Sutherland APRN-COMPUTER PERIPHERAL EQUIPMENT OPERATOR 10/13/2024 Travel 10/12/2024 Travel 10/12/2024 Refill [facility] [address] [place] [address] Yon De La Rosa MD CKD (chronic kidney disease) stage 4, GFR 15-29 ml/min ([facility]); Hyperlipidemia, unspecified hyperlipidemia type ; Type 2 diabetes mellitus with stage 4 chronic kidney disease, without long-term current use of insulin ([facility]) 10/07/2024 2:30 PM EDT Clinical Support [facility] [address] [place] [address] Amelia Moody, JORGE-A Sensorineural hearing loss (SNHL) of both ears (Primary Dx); Tinnitus, bilateral 10/07/2024 Bamboo flowsheet [facility] [address] [place] [address] Amelia Moody CCC-A 10/02/2024 Telephone [facility] [place] [address] [place] [phone] Trey Lombardo DO 10/01/2024 2:15 PM EDT Office Visit [facility] [address] [place] [address] Trey Lombardo DO Thyroid nodule (Primary Dx); Neck mass; Multiple thyroid nodules 10/01/2024 Travel 09/23/2024 11:00 AM EDT Ancillary Procedure [facility] [address] [place] [address] Thyroid nodule ; Neck mass 09/23/2024 Telephone [facility] [address] [place] [address] Romelia Otero, BERRY Medication Question 09/23/2024 Telephone [facility] [address] [place] [address] Romelia Otero NP 09/23/2024 Travel 09/22/2024 Refill [facility] [address] [place] [address] Romelia Otero, BERRY Type 2 diabetes mellitus with other specified complication, without long-term current use of insulin (HCC) 09/15/2024 2:00 PM EDT Office Visit [facility] [address] [place] [address] Trey Lombardo DO Thyroid nodule ; Neck mass 09/15/2024 11:30 AM EDT [facility] [address] [place] [address] Romelia Otero, BERRY Type 2 diabetes mellitus with other specified complication, without long-term current use of insulin (HCC) (Primary Dx); Primary hypertension ; CKD (chronic kidney disease) stage 4, GFR 15-29 ml/min (HCC); Morbid (severe) obesity due to excess calories ([facility]); Multiple thyroid nodules ; Severe episode of recurrent major depressive disorder, without psychotic features (HCC); Primary insomnia 09/15/2024 Travel 09/15/2024 Refill [facility] [address] [place] [address] Chuyita Sutherland, EMU FARM WORKER-COMPUTER PERIPHERAL EQUIPMENT OPERATOR Bipolar 2 disorder (HCC) 08/26/2024 10:30 AM EDT Social Work [facility] [address] [place] [address] Bhavin Miranda LPC Bipolar 2 disorder (HCC); Generalized anxiety disorder 08/26/2024 9:50 AM EDT Office Visit [facility] [address] [place] [address] Melany Fierro MD Thyroid nodule (Primary Dx) 08/26/2024 Bamboo flowsheet [facility] [address] [place] [address] Melany Fierro MD 08/26/2024 Travel 08/20/2024 Refill [facility] [address] [place] [address] Chuyita Sutherland APRN-COMPUTER PERIPHERAL EQUIPMENT OPERATOR Bipolar 2 disorder (HCC) 08/18/2024 1:00 PM EDT Office Visit [facility] [address] [place] [address] Chuyita Sutherland APRN-COMPUTER PERIPHERAL EQUIPMENT OPERATOR Bipolar 2 disorder (HCC) 08/18/2024 Travel 08/18/2024 Telephone [facility] [address] [place] [address] Melany Fierro MD question about a test on MyChart 08/17/2024 Orders Only [facility] [address] [place] [address] Melany Fierro MD 08/17/2024 Refill [facility] [address] [place] [address] Chuyita Sutherland, EMU FARM WORKER-COMPUTER PERIPHERAL EQUIPMENT OPERATOR Bipolar 2 disorder (HCC) 08/13/2024 Refill [facility] [address] [place] [address] Chuyita Sutherland, EMU FARM WORKER-COMPUTER PERIPHERAL EQUIPMENT OPERATOR Bipolar 2 disorder (HCC) 08/07/2024 Telephone [facility] [address] [place] [address] Melany Fierro MD biopsy 08/04/2024 Orders Only [facility] [address] [place] [address] Melany Fierro MD 07/22/2024 11:20 AM EDT Office Visit [facility] [address] [place] [address] Melany Fierro MD Thyroid nodule (Primary Dx) 07/22/2024 10:30 AM EDT Social Work [facility] [address] [place] [address] Bhavin Miranda LPC Bipolar 2 disorder (HCC); Generalized anxiety disorder ; Insomnia, unspecified type 07/22/2024 Bamboo flowsheet [facility] [address] [place] [address] Bhavin Miranda LPC 07/22/2024 Travel 07/20/2024 Refill [facility] [address] [place] [address] Yon De La Rosa MD CKD (chronic kidney disease) stage 4, GFR 15-29 ml/min (HCC) 07/16/2024 3:30 PM EDT Ancillary Procedure [facility] [address] [place] [address] CKD (chronic kidney disease) stage 4, GFR 15-29 ml/min (HCC); Menopause 07/16/2024 Travel 07/16/2024 Telephone [facility] [address] [address] Romelia Otero NP from Last 3 Months Immunizations Immunization Administration Dates Next Due Influenza, injectable, MDCK, preservative free, quadrivalent 03/16/2019,04/08/2017 Influenza, injectable, quadrivalent, preservativ e free 06/11/2023,04/03/2017 Family History Medical History Relation Name Comments Miscarriages / Stillbirths Daughter Alicia Diabetes Maternal Grandfather Alzheimer's disease Mother Khadijah Arthritis Mother Khadijah Cancer Mother Khadijah Depression Mother Khadijah Diabetes Mother Khadijah Hearing loss Mother Khadijah Hypertension Mother Khadijah Thyroid disease Mother Khadijah Cancer Sibling Depression Sister 1 Cancer Sister 2 Iwona Depression Sister 2 Iwona Kidney disease Sister 2 Iwona Migraines Sister 2 [place] Depression Son 1 Depression Son 2 [place] Relation Name Status Comments Daughter Alicia Alive Father Maternal Grandfather Mother Khadijah Alive Sibling Sister 1 Sister 2 Iwona Son 1 Alive Son 2 [place] Alive Social History Tobacco Use Types Packs/Day Years [...] often do you attend chur ch or adventist services? More than 4 times per year 06/30/2024 Do you belong to any clubs o r organizations such as scientologist groups, unions, fraternal or athletic groups, or [...] Recorded Patient Health Questionnaire-2 Score 5 07/09/2024 [facility] - Occupational [...] place to sleep or slept in a retirement (including now)? No 05/06/2023 Housing Stability Vital Sign Answer Ja e Recorded In the last 12 months, was t here a time when you were not able to pay the mortgage or rent on time? Yes 06/30/2024 In the past 12 months, how m any times have you moved where you were living? 0 06/30/2024 At any time in the past 12 m [facility], were you homeless or living in a retirement (including now)? No 06/30/2024 Education Answer Date [...] file Not on file Not on file Last Filed Vital Signs Vital Sign Reading Time Taken Comments Blood Pressure 124/74 10/13/2024 1:15 PM EDT Pulse 76 10/13/2024 1:15 PM EDT Temperature 36.9 C (98.5 F) 09/15/2024 11:40 AM EDT Respiratory Rate 22 09/15/2024 11:40 AM EDT Oxygen Saturation 93% 09/15/2024 11:40 AM EDT Inhaled Oxygen Concentration - - Weight 119 kg (262 lb) 10/13/2024 1:15 PM EDT Height 162.6 cm (5' 4 ) 10/01/2024 2:09 PM EDT Body Mass Index 44.97 10/01/2024 2:09 PM EDT Plan of Treatment Upcoming Encounters Date Type Department Care Team (Late st Contact Info) Description 11/17/2024 4:30 PM EDT Office Visit [facility] [address] [facility] [address] [place] [address] Chuyita Sutherland, EMU FARM WORKER-[facility] [address] [facility] [address] [place] [address] 11/18/2024 6:00 PM EDT Office Visit [facility] [address] [place] [address] Romelia Otero, EGG PASTEURIZER [address] [place] [address] 12/03/2024 12:00 PM EDT Social Work [facility] [address] [facility] [address] [place] [id number] Bhavin Miranda LPC Health Maintenance Due Date Last Done Comments CT Colonography 1965 FIT-DNA 1965 FIT 1965 FOBT 1965 Sigmoidoscopy 1965 Pap Smear 1986 Cervical Cancer Screening 12/11/1995 HPV/Cotest 12/11/1995 Diabetes: Retinopathy Screening 08/20/2024 Influenza Vaccine (Season Ended) 2024 06/11/2023, 03/16/2019, 04/08/2017, Additional history exists Diabetes: Urine Protein Screening 03/17/2025 024, 05/24/2023 Diabetes: Hemoglobin A1C 03/18/2025 025, 05/27/2024, 10/29/2023, Additional history exists Mammogram 06/17/2025 06/17/2024, 05/23, 05/27/2023 Colonoscopy 04/22/2030 04/22/2020 Colorectal Cancer Screening 04/22/2030 Goals Goal Patient Goal Type Associated Problems Recent Progress Patient-Stated? Author Help patient manage antidepressant medication Care Plan Patient on antidepressant monitoring plan No Bonny Torrez NP Procedures Procedure Name Priority Date/Time Associated Diagnosis Comments AUDITORY FUNCTION TESTS Routine 10/07/2024 3:[address] SOFT TISSUE NECK W IV CONTRAST Routine 09/23/2024 11:56 AM EDT Thyroid nodule Neck mass TSH Routine 09/21/2024 2:30 PM EDT Thyroid nodule T3, TOTAL Routine 09/21/2024 2:30 PM EDT Thyroid nodule T4 (THYROXINE), TOTAL Routine 09/21/2024 2:30 PM EDT Thyroid nodule POCT GLYCOSYLATED HEMOGLOBIN (HGB A1C) Routine 09/15/2024 12:02 PM EDT Type 2 diabetes mellitus with other specified complication, without long-term current use of insulin (HCC) US NEEDLE GUIDED BIOPSY Routine 08/03/2024 2:49 PM EDT US NEEDLE GUIDED BIOPSY Routine 08/03/2024 2:47 PM EDT FINE NEEDLE ASPIRATE Routine 08/03/2024 10:25 AM EDT DEXA BONE DENSITY Routine 07/16/2024 3:4 6 PM EDT CKD (chronic kidney disease) stage 4, GFR 15-29 ml/min (HCC) Menopause BI MAMMOGRAM DIAGNOSTIC TOMOSYNTHESIS LEFT Routine 06/17/2024 11:37 AM EST Abnormal mammogram of left breast from Last 3 Months or Most Recently Relevant to Health Maintenance Results * Auditory function tests (10/07/2024 3:11 PM EDT) Narrative Amelia Moody CCC-A - 10/07/2024 3:11 PM EDT Right Ear: Mild sloping to moderate sensorineural hearing loss above 250 Hz Left Ear: Mild to moderate sensorineural hearing loss above 250 Hz us Amelia Moody CCC-A AUDIOLOGY SERVICES ORDERA BLES Final Result * CT soft tissue neck w IV contrast (09/23/2024 11:56 AM EDT) Anatomical Region Laterality Modality Head, Neck Computed Tomogra phy Neck structure / Unknown 09/23/2024 7:25 PM EDT Narrative 09/23/2024 7:25 PM EDT EXAM: CT Soft Tissue Neck with IV Contrast: REASON FOR EXAM: Neck mass getting bigger. COMPARISON: 07/02/2024 and 02/07/2024. TECHNIQUE: Spiral images through the neck are obtained. CONTRAST: 100 mL Isovue-300 IV. FINDINGS: Sinuses: Unremarkable. Salivary glands: Unremarkable. Oral cavity/floor of mouth: Symmetric. Unremarkable. Tonsils: Symmetric. Unremarkable. Vallecula/epiglottis/piriform sinuses: Symmetric. Unremarkable. Larynx: Symmetric. Unremarkable. Cervical trachea: Unremarkable. Thyroid: The thyroid is multinodular. There is a dominant exophytic high-density solid mass arising from the superior margin of the isthmus measuring 2.9 x 2.7 cm in greatest dimension (2.8 x 2.6 cm in January 2024). No calcifications are apparent. A hypodense nodule of the right lower pole thyroid measures 1.8 cm, similar to the prior study. Other small nodular areas are similar to the prior exam but better characterized on previous ultrasound. Vascular structures: There is expected enhancement throughout. Lymphadenopathy/masses: Slightly prominent lymph nodes are present in the level 2 location bilaterally. On the right, the largest measures 1.8 cm, unchanged. On the left, the largest measures 1.3 cm, unchanged. Upper chest: Unremarkable. Osseous structures: Advanced degenerative change of the mid and lower cervical spine is present. IMPRESSION: Dominant exophytic mass arising from the thyroid isthmus. This generally correlates with the palpable marker. Mass now measures 2.9 cm in greatest dimension and has enlarged equivocally by 1-2 mm. Therefore, ultrasound-guided FNA is recommended if not previously performed to further assess. All CT scans at this institution are performed using dose optimization techniques as appropriate for the performed exam including the following: Automated exposure control; Adjustment of the mA and/or kV according to patient size; Use of iterative reconstruction technique. *This report is generated using voice recognition reporting (Redknee). On occasion [employer]Wave[employer] erroneously drops words from the report or replaces the spoken word with similar sounding words. Please call with any questions/concerns regarding this report.* Dictated and transcribed 09/23/2024/arnulfo This report has been electronically signed and approved by the interpreting radiologist. Procedure Note Derik Ortez MD - 09/23/2024 EXAM: CT Soft Tissue Neck with IV Contrast: REASON FOR EXAM: Neck mass getting bigger. COMPARISON: 07/02/2024 and 02/07/2024. TECHNIQUE: Spiral images through the neck are obtained. CONTRAST: 100 mL Isovue-300 IV. FINDINGS: Sinuses: Unremarkable. Salivary glands: Unremarkable. Oral cavity/floor of mouth: Symmetric. Unremarkable. Tonsils: Symmetric. Unremarkable. Vallecula/epiglottis/piriform sinuses: Symmetric. Unremarkable. Larynx: Symmetric. Unremarkable. Cervical trachea: Unremarkable. Thyroid: The thyroid is multinodular. There is a dominant exophytichigh-density solid mass arising from the superior margin of the isthmusmeasuring 2.9 x 2.7 cm in greatest dimension (2.8 x 2.6 cm in January2024). No calcifications are apparent. A hypodense nodule of the rightlower pole thyroid measures 1.8 cm, similar to the prior study. Othersmall nodular areas are similar to the prior exam but better characterizedon previous ultrasound. Vascular structures: There is expected enhancement throughout. Lymphadenopathy/masses: Slightly prominent lymph nodes are present in thelevel 2 location bilaterally. On the right, the largest measures 1.8 cm,unchanged. On the left, the largest measures 1.3 cm, unchanged. Upper chest: Unremarkable. Osseous structures: Advanced degenerative change of the mid and lowercervical spine is present. IMPRESSION: Dominant exophytic mass arising from the thyroid isthmus. This generallycorrelates with the palpable marker. Mass now measures 2.9 cm in greatestdimension and has enlarged equivocally by 1-2 mm. Therefore,ultrasound-guided FNA is recommended if not previously performed tofteresita morgan. All CT scans at this institution are performed using dose optimizationtechniques as appropriate for the performed exam including thefollowing: Automated exposure control; Adjustment of the mA and/or kV according to patient size; Use of iterative reconstruction technique. *This report is generated using voice recognition reporting (Redknee).On occasion Therma-Wavee erroneously drops words from the report orreplaces the spoken word with similar sounding words. Please call with anyquestions/concerns regarding this report.* Dictated and transcribed 09/23/2024/arnulfo This report has been electronically signed and approved by theinterpreting radiologist. Trey Lombardo DO IMG CT PROCEDURES Final Res ult * T3 (09/21/2024 2:30 PM EDT) T3, TOTAL 108 76 - 181 ng/dL [facility] Blood Venous blood specimen / Unknown 09/21/2024 2:30 PM EDT 09/21/2024 2:31 PM EDT Narrative Resulting Agency Comment Performing Organization Information Site ID: QPT Name: [email or web address] Address: [address] [place] [address], [address] [place] [phone] Director: Clem Ambrose MD Trey Lombardo DO LAB BLOOD ORDERABLES Final Result [facility] * (ABNORMAL) TSH (09/21/2024 2:30 PM EDT) TSH 0.21(L) 0.40 - 4.50 mIU/L [facility] Blood Venous blood specimen / Unknown 09/21/2024 2:30 PM EDT 09/21/2024 2:31 PM EDT Narrative Resulting Agency Comment Performing Organization Information Site ID: QPT Name: [employer] [facility] Address: [address] [place] [address], [address] [place] [phone] Director: Clem Ambrose MD Trey Lombarod DO LAB BLOOD ORDERABLES Final Result Performing Organization Address City/[facility] Co de Phone Number [facility] * T4 (09/21/2024 2:30 PM EDT) T4 (THYROXINE), TOTAL 7.6 5.1 - 11.9 mcg/dL [facility] Blood Venous blood specimen / Unknown 09/21/2024 2:30 PM EDT 09/21/2024 2:31 PM EDT Narrative Resulting Agency Comment Performing Organization Information Site ID: QPT Name: [employer] [facility] Address: [address] [place] [address], [address] [place] [phone] Director: Clem Ambrose MD Trey Lombardo DO LAB BLOOD ORDERABLES Final Result Performing Organization Address [facility] de Phone Number [facility] * (ABNORMAL) POCT glycosylated hemoglobin (Hb A1C) docked device (09/15/2024 12:02 PM EDT) Hemoglobin A1C 9.9 Blood Venous blood specimen / Unknown 09/15/2024 12:02 PM EDT Romelia Otero NP POINT OF CARE TEST ENTER/EDIT O RDERABLES Final Result * US NEEDLE GUIDED BIOPSY (08/03/2024 2:49 PM EDT) Only the most recent of2 resultswithin the time period is included. Anatomical Region Laterality Modality Radiographic Viki ging Melany Fierro MD IMG XR PROCEDURES Final Resul t * Fine Needle Aspirate (08/03/2024 10:25 AM EDT) Melany Fierro MD IN CLINIC/BEDSIDE ORDERABLES Final Result * DEXA bone density (07/16/2024 3:46 PM EDT) Anatomical Region Laterality Modality Body Digital Radiogra phy 07/16/2024 4:00 PM EDT Impressions 07/16/2024 4:03 PM EDT Impression: Findings compatible with mild osteopenia with mild increased fracture risk. ELECTRONICALLY SIGNED BY: Tal Mercado M.D. Narrative 07/16/2024 4:03 PM EDT Examination: DEXA BONE DENSITY Clinical History: post menopausal Technique: Bone density study was performed. T score values for the lumbar spine, right femoral neck and left femoral neck were obtained. Comparison: None Findings: Value for the lumbar spine from L1-L4 is +0.2. Value for the right femoral neck is -1.2. Value for the left femoral neck is -1.3. Findings are compatible with mild osteopenia with mild increased fracture risk. No evidence of osteoporosis. Procedure Note Tal Mercado MD - 07/16/2024 Examination: DEXA BONE DENSITY Clinical History: post menopausal Technique: Bone density study was performed. T score values for the lumbarspine, right femoral neck and left femoral neck were obtained. Comparison: None Findings: Value for the lumbar spine from L1-L4 is +0.2. Value for theright femoral neck is -1.2. Value for the left femoral neck is -1.3.Findings are compatible with mild osteopenia with mild increased fracturerisk. No evidence of osteoporosis. IMPRESSION: Impression: Findings compatible with mild osteopenia with mild increasedfracture risk. ELECTRONICALLY SIGNED BY: Tal Mercado M.D. Romelia Otero NP IMG DXA PROCEDURES Final Result * Left diagnostic mammogram with tomosynthesis (06/17/2024 11:37 AM EST) Anatomical Region Laterality Modality Breast Left Mammography 06/18/2024 7:15 AM EST Impressions 06/18/2024 7:23 AM EST No convincing evidence of neoplasm in the left breast. Follow-up diagnostic mammogram study of the left breast as well as ultrasound study of the left breast recommended to assess stability. BIRADS 3 - Probably Benign Findings DENSITY: There are scattered areas of fibroglandular density. FOLLOW-UP: Diagnostic Mammogram in 6 Months, breast ultrasound in 6 months Board Certified Radiologists. Accredited by the ACR and FDA. MAMMOGRAPHY IS VERY IMPORTANT TO YOUR HEALTH. THE [employer] GUIDELINES RECOMMEND THAT WOMEN 40 YEARS OF AGE AND OLDER SHOULD HAVE A MAMMOGRAM EVERY YEAR. A REMINDER LETTER WILL BE SENT AT THE APPROPRIATE TIME. ELECTRONICALLY SIGNED BY: Tal Mercado M.D. Narrative 06/18/2024 7:23 AM EST EXAMINATION: BI MAMMOGRAM DIAGNOSTIC TOMOSYNTHESIS LEFT CLINICAL HISTORY: Abnormal mammogram screening TECHNIQUE: Diagnostic digital mammogram study of the left breast was performed with 2D and 3D tomosynthesis imaging. Study was compared to the screening mammogram study of the breasts dated 06/09/2024 and ultrasound study of the left breast dated 06/17/2024. FINDINGS: Coned-down compression views as well as true lateral view of the left breast were obtained. Previously noted approximately 1.1 x 0.5 cm asymmetric density in the superolateral aspect of the left breast posteriorly is again identified and on present study has appearance of what is likely a portion of a vessel or other benign process. Ultrasound study performed today failed to demonstrate obvious focal abnormality. When correlating all studies no convincing evidence of neoplasm. Follow-up diagnostic mammogram study of the left breast as well as ultrasound study left breast in 6 months is recommended to assess stability. Bonny Shaw NP IMG BI PROCEDURES Final Result from Last 3 Months or Most Recently Relevant to Health Maintenance Additional Health Concerns Active Problems Noted Date Diagnosed Date Patient on antidepressant monitoring plan 2023 Insurance [employer] Care Teams Drafter Structural Relationship Specialty Start Date End Date Shaikh Villalta MD [address] [place] [id number] PCP - [facility] 07/22/23 Yon De La Rosa MD [address] [place] [phone] PCP - General Family Medicine 12/02/23 Chuyita Sutherland, EMU FARM WORKER-COMPUTER PERIPHERAL EQUIPMENT OPERATOR [address] [address] [place] [address] Nurse Practitioner Psychiatry 05/07/24 Bhavin Miranda LPC [employer] [facility] 05/27/24 Romelia Otero NP [address] [place] [phone] Nurse Practitioner Family Medicine 10/07/24
--- OUTSIDE RECORDS SUMMARY | 2024-10-13 14:25 | XMS_ITS | Encounter Summary ---
Author Organization [facility] Address [address] [place] [address] Care Team Providers Care Exchange Mechanic Name Role Phone Shaikh TEODORA Villalta Unavailable [phone] Yon De La Rosa MD Primary Care Provider [phone] Bonny Shaw GEAR CHANGER Unavailable [phone] CLEANING EQUIPMENT OPERATOR-FURNACE MECHANIC Unavailable Bhavin Miranda LPC Unavailable Unavailable Romelia Otero GEAR CHANGER Unavailable [phone] Encounter Details Date Type Department Care Team ([facility] st Contact Info) Description 10/02/2024 Telephone [facility] [address] [place] [address] Trey Lombardo DO [address] [place] [address] Social History Tobacco Use Types Packs/Day Years Used Date Smoking Tobacco: Former Cigarettes 1.5 40 0 04/22/1987 - 2007 Passive Smoke Exposure: Past Smokeless Tobacco: Never Comments:5-10 years since [facility] smoked. Alcohol Use Standard Drinks/Week Comments Yes [...] you attend chur ch or quaker services? More than 4 times per year 06/30/2024 Do you belong to any clubs o r organizations such as mormonism groups, unions, fraternal or athletic groups, or [...] Recorded Patient Health Questionnaire-2 Score 5 07/09/2024 [facility] - Occupational Stress Questionnaire [...] any time in the past 12 m [facility], were you homeless or living in a [...] on file documented as of this encounter Miscellaneous Notes * Telephone Encounter - Yanni Bianchi - 10/02/2024 9:22 AM EDT Pt Called and said she is ready to schedule her surgery. Please call documented in this encounter Plan of Treatment Upcoming Encounters Date Type Department Care Team (Late st Contact Info) Description 11/17/2024 4:30 PM EDT Office Visit [facility] [address] [facility] [address] [place] [address] Chuyita Sutherland, STREET CLEANING EQUIPMENT OPERATOR-FURNACE MECHANIC [address] [facility] [address] [place] [address] 11/18/2024 6:00 PM EDT Office Visit [facility] [address] [place] [address] Romelia Otero NP [address] [place] [address] 12/03/2024 12:00 PM EDT Social Work [facility] [address] [facility] [address] [place] [address] Bhavin Miranda LPC documented as of this [...] documented as of this encounter Care Teams Exchange Mechanic Relationship Specialty Start Date End Date Shaikh Villalta MD [address] [place] [address] PCP - [facility] 07/22/23 Yon De La Rosa MD [address] [place] [address] PCP - General Family Medicine 12/02/23 Bonny Shaw NP [address] [place] [address] Nurse Practitioner Family Medicine 12/02/23 10/06/24 Chuyita Sutherland APRN-FURNACE MECHANIC [address] [address] [place] [address] Nurse Practitioner Psychiatry 05/07/24 Bhavin Miranda LPC Associate Java Developer Behavioral Health 05/27/24 Romelia Otero, BERRY [address] [place] [address] Nurse Practitioner Family Medicine 10/07/24 documented as of this encounter
--- OUTSIDE RECORDS SUMMARY | 2024-10-13 14:25 | XMS_ITS | Encounter Summary ---
Author Organization [facility] Address [address] [place] [address] Care Team Providers Care Human Relations Teacher Name Role Phone Shaikh TEODORA Villalta Primary Care Provider [phone] Shaikh TEODORA Villalta Unavailable [phone] Yon De La Rosa MD Primary Care Provider [phone] Bonny Shaw FUNERAL PRE ARRANGEMENT SPECIALIST Unavailable [phone] Chuyita Sutherland FINANCIAL SOLUTIONS ADVISOR-BASIN TENDER Unavailable Bhavin Miranda LPC Unavailable Unavailable Romelia Otero FUNERAL PRE ARRANGEMENT SPECIALIST Unavailable [phone] Encounter Details Date Type Department Care Team (Late st Contact Info) Description 10/16/2023 [facility] [address] [place] [address] Shaikh Villalta MD [address] [place] [address] Social History Tobacco Use Types Packs/Day Years Used Date Smoking Tobacco: Former Cigarettes 1 - 2007 Passive Smoke Exposure: Past Smokeless Tobacco: Never Comments:5-10 years since [facility] smoked. Alcohol Use Standard Drinks/Week Comments Not [...] week 05/06/2023 How often do you attend [facility] or rastafarian services? Never 05/06/2023 Do you belong to any clubs o r organizations such as uatsdin groups, unions, fraternal or athletic groups, or [...] Date Recorded Patient Health Questionnaire-2 Score 0 10/08/2023 [facility] - Occupational Stress [...] place to sleep or slept in a usp (including now)? No 05/06/2023 Comments Unknown Sex [...] 11/17/2024 4:30 PM EDT Office Visit [facility] [address] [facility] [address] [place] [address] Chuyita Sutherland, FINANCIAL SOLUTIONS ADVISOR-BASIN TENDER [address] [place] [address] [place] [address] 11/18/2024 6:00 PM EDT Office Visit [facility] [address] [place] [address] Romelia Otero, BERRY [address] [place] [address] 12/03/2024 12:00 PM EDT Social Work [facility] [address] [place] [address] [place] [address] Bhavin Miranda LPC documented as of this encounter Visit Diagnoses Not on filedocumented in this encounter Additional Health Concerns Assessment Noted Time PHQ-9 Depression Total Score: 13 05/ 024 5:58 PM EDT documented as of this encounter Care Teams Human Relations Teacher Relationship Specialty Start Date End Date Shaikh Villalta MD [address] [place] [address] PCP - General Internal Medicine 08/12/23 12/01/23 Shaikh Villalta MD [address] [place] [address] PCP - [facility] 07/22/23 Yon De La Rosa MD [address] [place] [address] PCP - General Family Medicine 12/02/23 Bonny Shaw NP [address] [place] [address] Nurse Practitioner Family Medicine 12/02/23 10/06/24 Chuyita Sutherland APRN-BASIN TENDER [address] [facility] [address] [place] [address] Nurse Practitioner Psychiatry 05/07/24 Bhavin Miranda LPC Molder Foam Rubber Behavioral Health 05/27/24 Romelia Otero NP [address] [place] [address] Nurse Practitioner Family Medicine 10/07/24 documented as of this encounter
--- OUTSIDE RECORDS SUMMARY | 2024-10-13 14:25 | XMS_ITS | Encounter Summary ---
Author Organization [facility] Address [address] [place] [address] Care Team Providers Care Floor Coverer Apprentice Name Role Phone Shaikh TEODORA Villalta Primary Care Provider [phone] Shaikh TEODORA Villalta Primary Care Provider [phone] Shaikh TEODORA Villalta Unavailable [phone] Yon De La Rosa MD Primary Care Provider Bonny Shaw NURSE INFORMATICIST Unavailable Chuyita Sutherland SUPERINTENDENT GENERAL-MERCHANDISE ADJUSTMENT CLERK Unavailable Bhavin Miranda WHEAT WASHER Unavailable Unavailable Romelia Otero NURSE INFORMATICIST Unavailable [phone] Encounter Details Date Type Department Care Team ([facility] st Contact Info) Description 08/04/2023 [facility] [address] [place] [address] Shaikh Villalta MD [address] [place] [address] Type 2 diabetes mellitus with stage 4 chronic kidney disease, with long-term current use of insulin (HCC) Social History Tobacco Use Types Packs/Day Years Used Date Smoking Tobacco: Former Cigarettes 1 20 1 988 - 2007 Smokeless Tobacco: Never Comments:5-10 years since [facility] smoked. Alcohol Use Standard Drinks/Week Comments [...] often do you attend chur ch or congregation services? Never 05/06/2023 Do you belong to any clubs o r organizations such as druze groups, unions, fraternal or athletic groups, or [...] Recorded Patient Health Questionnaire-2 Score 1 05/07/2023 [facility] - Occupational Stress Questionnaire Answer Date [...] place to sleep or slept in a alf (including now)? No 05/06/2023 Comments Unknown Sex [...] Office Visit [facility] [address] [facility] [address] [place] [address] Chuyita Sutherland, SUPERINTENDENT GENERAL-MERCHANDISE ADJUSTMENT CLERK [address] [facility] [address] [place] [address] 11/18/2024 6:00 PM EDT Office Visit [facility] [address] [place] [address] Romelia Otero, NURSE INFORMATICIST [address] [place] [address] 12/03/2024 12:00 PM EDT Social Work [facility] [address] [facility] [address] [place] [address] Bhavin Miranda LPC documented as of this encounter Visit Diagnoses Diagnosis Type 2 diabetes mellitus with stage 4 chronic kidney disease, with long-term current use of insulin (HCC) documented in this encounter Care Teams Floor Coverer Apprentice Relationship Specialty Start Date End Date Shaikh Villalta MD PCP - General Internal Medicine 11/01/22 08/11/23 Shaikh Villalta MD [address] [place] [address] PCP - General Internal Medicine 08/12/23 12/01/23 Shaikh Villalta MD [address] [place] [address] PCP - [facility] 07/22/23 Yon De La Rosa MD [address] [place] [address] PCP - General Family Medicine 12/02/23 Bonny Shaw NP [address] [place] [address] Nurse Practitioner Family Medicine 12/02/23 10/06/24 Chuyita Sutherland APRN-MERCHANDISE ADJUSTMENT CLERK [address] [address] [place] [address] Nurse Practitioner Psychiatry 05/07/24 Bhavin Miranda LPC Fill Plant Operator Behavioral Health 05/27/24 Romelia Otero NP [address] [place] [address] Nurse Practitioner Family Medicine 10/07/24 documented as of this encounter
--- OUTSIDE RECORDS SUMMARY | 2024-10-13 14:26 | XMS_ITS | Encounter Summary ---
Author Organization [facility] Address [id number] [address] [place] [address] Care Team Providers Care Marketing Support Coordinator Name Role Phone Bonny Shaw Quan GOOD HUMOR VENDOR-HARDBOARD SUPERVISOR Primary Care Pr ovider Encounter Details Date Type Department Care Team (Late st Contact Info) Description 07/29/2023 Orders Only [facility] [address] [place] [address] External, Scanning Provider Social History Tobacco Use Types Packs/Day Years Used Date Smoking Tobacco: Never Assessed Childcare Answer Date Recorded Childcare Unknown 09/30/2018 Employment Answer Date Recorded Employment Unknown 09/30/2018 Hunger Screening Answer Date Recorded Within the past 12 months we worried whether our food would run out before we got money to buy more. Never True 04/25/2023 Within the past 12 months th e food we bought just didn't last and we didn't have money to get more. Never True 04/25/2023 Comments Unknown Sex and Gender Information Value Date Recorded Sex Assigned at Not on file Legal Sex Female 6:31 PM EDT Gender Identity Not on file Sexual Orientation Not on file documented as of this encounter Plan of Treatment Upcoming Encounters Date Type Department Care Team (Late Contact Info) Description 10/26/2024 11:20 AM EDT Office Visit [facility] [address] [place] [address] Ralph Milton MD [address] [address] documented as of this encounter Procedures Procedure Name Priority Date/Time Associated Diagnosis Comments MR SHOULDER RT WO CONT Routine 07/29/2023 10:02 AM EDT documented in this encounter Results * MR shoulder right without contrast (07/29/2023 10:02 AM EDT) Anatomical Region Laterality Modality MSK, Shoulder, Upper Extremities, MSK Covera Rig ht Magnetic Resonance us Scanning Provider External IMG MRI ORDERABLES Fi nal Result documented in this encounter Visit Diagnoses Not on filedocumented in this encounter Care Teams Marketing Support Coordinator Relationship Specialty Start Date End Date Bonny Shaw, GOOD HUMOR VENDOR-HARDBOARD SUPERVISOR [address] [place] [address] PCP - General Nurse Practitioner 02/07/24 documented as of this encounter
--- OUTSIDE RECORDS SUMMARY | 2024-10-13 14:26 | XMS_ITS | Patient Health Record ---
Author Organization [facility] [place] Address [address] [place] [address] Care Team Providers Care Engineering Production Liaison Name Role Phone SANTOS MACKEY MD Primary Care Provider Allergies Allergen (clinical drug ingredient) Drug/Non Drug Allergy documented on EMR Reaction Allergy Type Onset Date Status No Known Drug Allergies (uncoded) Unknown Allergy Active Reason For Referral No Information Medications Medication SIG (Take, Route, Frequency, Duration) Notes Start Date End Date Status Lexapro 20 MG 1 tablet Orally Once a day for 30 day(s) Active metFORMIN HCl 1000 MG 1 tablet with meals Orally daily Not-Taking Farxiga 10 MG 1 tablet Orally Once a day for 30 day(s) Active Vitamin D 2000 UNIT 1 tablet Orally Once a day for 30 day(s) Not-Taking dilTIAZem HCl 120 MG as directed Orally Active Diclofenac Sodium 75 MG 1 tablet with food or milk Orally Twice a day Not-Taking Carvedilol 3.125 MG 1 tablet with food Orally Twice a day for 30 day(s) Active Januvia 100 MG Orally Once a day Not-Taking Pramipexole Dihydrochloride 1 MG Orally Once a day Active Cyproheptadine HCl 4 MG Orally Not-Taking Cartia XT 240 MG Orally Once a day 360 Active Eliquis 5 MG Orally Active Aspir-81 Active Atorvastatin Calcium 20 MG Orally Daily Active Lisinopril 2.5 MG 1 tablet Orally Once a day for 30 day(s) Active Amitriptyline HCl 100 MG Orally Not-Taking Lantus 600mg 35 ut Active Lasix 40 MG 1 tablet Orally Once a day for 30 day(s) Active Irbesartan 300 MG Orally Once a day Active Ferrous Sulfate 325mg Active Pioglitazone HCl 45 MG Orally Active Glimepiride 4 MG 1 tablet Orally BID for 30 days Filling for 1 month as a bridge in anticipation for appt with Dr Joyce Active Miscellaneous DDM Hi Potassium Active Omeprazole 20 MG Orally Daily Active Magnesium 400 MG Orally Act beronica Metoprolol Succinate 200 Daily Active Social History Tobacco Use: Social History Observation Description Date Details (start date - stop date) Never Smoker NA - NA Tobacco Use/Smoking Question Answer Notes Patient is a nonsmoker Additional Findings: Tobacco Non-User Current no n-smoker Alcohol Screen (Audit-C) Question Answer Notes Did you have a drink contain ing alcohol in the past year? Yes How often did you have 6 or more drinks on one occasion in the past year? Two to four times a month (2 points) How many drinks did you have on a typical day when you were drinking in the past year? 3 or 4 drinks (1 point) How often did you have a dri nk containing alcohol in the past year? Monthly (2 points) Points 5 Interpretation Positive Sexual History Question Answer Notes Had sex in the past 12 months (vaginal, oral, or anal)? Yes Problems Problem Type SNOMED Code ICD Code Onset Dates Problem Status W/U Status Risk Notes Problem 472784478 Morbid (severe) obesity due to excess calories (E66.01) Active confirmed Problem Morbid obesity (235097523) Morbid obesity (E66.01) Active confirmed Problem Arthritis (1992363) Arthritis (M19.90) Active confirmed Problem Depression (491202473) Depression (F32.9) Active confirmed Problem 519263380 Insulin resistance (E88.81) Active confirmed Problem 771111705 Morbid obesity, unspecified obesity type (E66.01) Active confirmed Problem 693945279 Body mass index (BMI) of 45.0-49.9 in adult (Z68.42) Active confirmed Problem History and physical examination, follow-up (991587706) Postoperative examination (Z09) Active confirmed Problem Gynecological examination normal (366863863229419) Encounter for routine gynecological examination (Z01.419) Active confirmed Problem SI - Stress incontinence (86590032) Stress incontinence (N39.3) Active confirmed Problem Postmenopausal bleeding (03418500) PMB (postmenopausal bleeding) (N95.0) Active confirmed Problem mammogram - screening (31280662) Screening mammogram, encounter for (Z12.31) Active confirmed Problem 756725163 Family history of osteoporosis in mother (Z82.62) Active confirmed Problem 42799419 Asymptomatic hypertension (I10) Active confirmed Plan Of Treatment Pending Test Test Name Order Date Endometrial Biopsy 03/07/2017 Insurance Providers Payer Name Payer Address Payer Phone Subscriber Number Group Number Insured Name Patient Relationship to Insured Coverage Start Date Coverage End Date [facility] [address] [place] [phone] [id number] Shirley Vila Self - patient is the insured 9 [employer] [address] [place] [address] [id number] Shirley Vila Self - patient is the insured Medical (General) History Medical History History ICD Code Hot flashes R23.2 History of dysfunctional uterine bleedin g Z87.42 Postmenopausal bleeding PE August 2020 cardiomyopathy diabetes HTN Surgical History Surgery Date(Month/Year) Ceserean Section Nose Surgery Rotator cuff repair tonsillectomy with adenoidectomy tubal ligation Hysteroscopic d&C with myosure polypecto my per at [facility] 07/29/2016 cardiac ablation 06/2018
--- OUTSIDE RECORDS SUMMARY | 2024-10-13 14:26 | XMS_ITS | Encounter Summary ---
Author Organization [facility] Address [address] [place] [address] Care Team Providers Care Cloth Finisher Name Role Phone Honorio Joyce MD Primary Care Provider [phone] Shaikh TEODORA Villalta Primary Care Provider [phone] Shaikh TEODORA Villalta Primary Care Provider [phone] Shaikh TEODORA Villalta Unavailable [phone] Yon De La Rosa MD Primary Care Provider [phone] Bonny Shaw BUILDING PRESSURE WASHER Unavailable [phone] Chuyita Sutherland PRECAST WORKER-TAPE CUTTING MACHINE OPERATOR Unavailable Bhavin Miranda SQL DATABASE PROGRAMMER Unavailable Unavailable Romelia Otero BUILDING PRESSURE WASHER Unavailable [phone] Encounter Details Date Type Department Care Team (Late st Contact Info) Description 09/26/2022 Abstract [facility] [address] [place] [address] Amelia Moody, [facility] [address] [place] [address] Social History Tobacco Use Types Packs/Day Years Used Date Smoking Tobacco: Former Cigarettes Smokeless Tobacco: Never Tobacco Cessation:Counseling Given: Not Answered Comments:5-10 years since last smoked. Alcohol Use Standard Drinks/Week Comments Not Currently 0 (1 standard drink = 0.6 oz pure alcohol) caffeine intake: 3-4 cups per day of soda/pop Comments Unknown Sex and Gender Information Value [...] [address] [place] [address] [place] [address] Chuyita Sutherland APRN-[facility] [address] [place] [address] [place] [address] 11/18/2024 6:00 PM EDT Office Visit [facility] [address] [place] [address] Romelia Otero, BUILDING PRESSURE WASHER [address] [place] [address] 12/03/2024 12:00 PM EDT Social Work [facility] [address] [facility] [address] [place] [address] Bhavin Miranda, ADAM documented as of this encounter Visit Diagnoses Not on filedocumented in this encounter Care Teams Cloth Finisher Relationship Specialty Start Date End Date Honorio Joyce MD PCP - General Family Medicine 09/25/22 10/31/22 Shaikh Villalta MD PCP - General Internal Medicine 11/01/22 08/11/23 Shaikh Villalta MD [address] [place] [address] PCP - General Internal Medicine 08/12/23 12/01/23 Shaikh Villalta MD [address] [place] [address] PCP - [facility] 07/22/23 Yon De La Rosa MD [address] [place] [address] PCP - General Family Medicine 12/02/23 Bonny Shaw, BERRY [address] [place] [address] Nurse Practitioner Family Medicine 12/02/23 10/06/24 Chuyita Sutherland, PRECAST WORKER-TAPE CUTTING MACHINE OPERATOR [address] [facility] [place] [address] Nurse Practitioner Psychiatry 05/07/24 Bhavin Miranda LPC Mail List Librarian Behavioral Health 05/27/24 Romelia Otero, BERRY [address] [place] [address] Nurse Practitioner Family Medicine 10/07/24 documented as of this encounter
--- OUTSIDE RECORDS SUMMARY | 2024-10-13 14:26 | XMS_ITS | Encounter Summary ---
Author Organization [facility] Address [address] [place] [address] Care Team Providers Care Campus Executive Director Name Role Phone Shaikh TEODORA Villalta Primary Care Provider [phone] Romelia Otero MD Primary Care Provider [phone] Reason for Visit * Reason Comments Med Refill Encounter Details Date Type Department Care Team (Late st Contact Info) Description 11/02/2022 Refill [facility] [address] [place] [address] Stanley Trent MD [address] [facility] [address] [facility] [place] [address] Gastroesophageal reflux disease with esophagitis, unspecified whether hemorrhage Social History Tobacco Use Types Packs/Day Years Used Date Smoking Tobacco: Former Cigarettes Smokeless Tobacco: Never Alcohol Use Standard Drinks/Week Comments Yes 0 (1 standard drink = 0.6 oz pur e alcohol) occasional Comments Unknown Sex and Gender Information Value [...] Description 11/10/2024 11:30 AM EDT Office Visit [facility] [address] [place] [address] Trey Winston MD [address] [place] [address] documented as of this encounter Visit Diagnoses Diagnosis Gastroesophageal reflux disease with esophagitis, unspecified whether hemorrhage documented in this encounter Care Teams Campus Executive Director Relationship Specialty Start Date End Date Shaikh Villalta MD [address] [place] [address] PCP - General Family Medicine 06/07/22 07/05/24 Romelia Otero MD [address] [place] [address] PCP - General Nurse Practitioner 07/06/24 documented as of this encounter
--- OUTSIDE RECORDS SUMMARY | 2024-10-13 14:26 | XMS_ITS | Encounter Summary ---
Author Organization [facility] Address [address] [place] [address] Care Team Providers Care Unscrambler Name Role Phone Shaikh TEODORA Villalta Primary Care Provider Romelia Otero MD Primary Care Provider [phone] Reason for Visit * Reason Comments Med Refill Encounter Details Date Type Department Care Team (Late st Contact Info) Description 04/14/2022 Refill [facility] [address] [place] [address] Stanley Trent MD [address] [facility] [address] [facility] [place] [address] Edema, unspecified type Social History Tobacco Use Types Packs/Day Years [...] Office Visit [facility] [address] [place] [address] Trey Winston MD [address] [place] [address] documented as of this encounter Visit Diagnoses Diagnosis Edema, unspecified type documented in this encounter Care Teams Unscrambler Relationship Specialty Start Date End Date Shaikh Villalta MD [address] [place] [address] PCP - General Family Medicine 06/07/22 07/05/24 Romelia Otero MD [address] [place] [address] PCP - General Nurse Practitioner 07/06/24 documented as of this encounter
--- OUTSIDE RECORDS SUMMARY | 2024-10-13 14:26 | XMS_ITS | Encounter Summary ---
Author Organization [facility] Address [address] [place] [address] Care Team Providers Care Post Manager Name Role Phone Shaikh TEODORA Villalta Unavailable [phone] Yon De La Rosa MD Primary Care Provider [phone] Bonny Shaw NP Unavailable [phone] Chuyita Sutherland CRIMINAL RESEARCH SPECIALIST-TINWARE LITHOGRAPH PRESS OPERATOR Unavailable Bhavin Miranda LPC Unavailable Unavailable Romelia Otero NP Unavailable [phone] Reason for Visit * Reason Comments Med Refill Encounter Details Date Type Department Care Team (Late st Contact Info) Description 08/17/2024 Refill [facility] [address] [facility] [address] [place] [address] Chuyita Sutherland, CRIMINAL RESEARCH SPECIALIST-TINWARE LITHOGRAPH PRESS OPERATOR [address] [address] [place] [address] Bipolar 2 disorder (HCC) Social History Tobacco Use Types Packs/Day Years Used Date Smoking Tobacco: Former Cigarettes 1.5 40 0 04/22/1987 - 2007 Passive Smoke Exposure: Past Smokeless Tobacco: Never Comments:5-10 years since [facility] smoked. Alcohol Use Standard Drinks/Week Comments Yes [...] How often do you attend chur or pentecostal services? More than 4 times per year 06/30/2024 Do you belong to any clubs o r organizations such as taoist groups, unions, fraternal or athletic groups, or [...] Recorded Patient Health Questionnaire-2 Score 5 07/09/2024 [facility] [place] of Occupat ional Health - Occupational Stress [...] a senior living (including now)? No 05/06/2023 Housing Stability Vital Sign Answer Ja e Recorded In the last 12 months, was t here a time when you were not able to pay the mortgage or rent on time? Yes 06/30/2024 In the past 12 months, how m any times have you moved where you were living? 0 06/30/2024 At any time in the past 12 m [facility], were you homeless or living in a senior living (including now)? No 06/30/2024 Education Answer Date [...] Visit [facility] [address] [facility] [address] [place] [phone] Chuyita Sutherland, CRIMINAL RESEARCH SPECIALIST-TINWARE LITHOGRAPH PRESS OPERATOR [address] [facility] [address] [place] [address] 11/18/2024 6:00 PM EDT Office Visit [facility] [address] [place] [address] Romelia Otero NP [address] [place] [address] 12/03/2024 12:00 PM EDT Social Work [facility] [address] [facility] [address] [place] [phone] Bhavin Miranda LPC documented as of this [...] documented as of this encounter Care Teams Post Manager Relationship Specialty Start Date End Date Shaikh Villalta MD [address] [place] [address] PCP - [facility] 07/22/23 Yon De La Rosa MD [address] [place] [address] PCP - General Family Medicine 12/02/23 Bonny Shaw NP [address] [place] [address] Nurse Practitioner Family Medicine 12/02/23 10/06/24 Chuyita Sutherland, CRIMINAL RESEARCH SPECIALIST-TINWARE LITHOGRAPH PRESS OPERATOR 112 [facility] [place] [address] Nurse Practitioner Psychiatry 05/07/24 Bhavin Miranda LPC Human Factors Advisor Lead Behavioral Health 05/27/24 Romelia Otero NP [address] [place] [address] Nurse Practitioner Family Medicine 10/07/24 documented as of this encounter
--- OUTSIDE RECORDS SUMMARY | 2024-10-13 14:26 | XMS_ITS | Encounter Summary ---
Author Organization [facility] Address [address] [place] [address] Care Team Providers Care Color Tester Name Role Phone Shaikh TEODORA Villalta Unavailable [phone] Yon De La Rosa MD Primary Care Provider [phone] Bonny Shaw PRODUCTION ILLUSTRATOR Unavailable [phone] Chuyita Sutherland BLOG WRITER-ANIMAL LABORATORY HELPER Unavailable Bhavin Miranda LPC Unavailable Unavailable Romelia Otero PRODUCTION ILLUSTRATOR Unavailable [phone] Encounter Details Date Type Department Care Team (Late st Contact Info) Description 07/07/2024 Orders Only [facility] [address] [facility] [address] [place] [address] Shaikh Villalta MD [address] [place] [address] Social History Tobacco Use Types Packs/Day Years Used Date Smoking Tobacco: Former Cigarettes 1.5 40 0 04/22/1987 - 2007 Passive Smoke Exposure: Past Smokeless Tobacco: Never Comments:5-10 years since [facility] smoked. Alcohol Use Standard Drinks/Week Comments Yes 4 (1 standard drink = 0.6 oz pure alcohol) Social drinker- caffeine intake: 3-4 cups per day of soda/pop B1300 Health [...] How often do you attend chur or adventist services? More than 4 times per year 06/30/2024 Do you belong to any clubs o r organizations such as nondenominational groups, unions, fraternal or athletic groups, or [...] Recorded Patient Health Questionnaire-2 Score 5 07/09/2024 [facility] - Occupational Stress Questionnaire Answer Date [...] place to sleep or slept in a prison (including now)? No 05/06/2023 Housing Stability Vital [...] were you homeless or living in a prison (including now)? No 06/30/2024 Education Answer Date [...] on file documented as of this encounter Functional Status * Over the past 2 weeks, how often have you been bothered by any of the following problems? Question Answer Date of Assessment Author Patient Health Questionnaire-2 Score 5 06/21 11:27 AM EDHellen Cruz * If you checked off any problems on this questionnaire so far, Question Answer Date of Assessment Author How difficult have these problems made it for you to do your work, take care of things at home, or get along with other people? Extremely difficult 07/09/2024 11:27 AM EDHellen Cruz * Over the last 2 weeks, how often have you been bothered by any of the following problems? Question Answer Date of Assessment Author Feeling nervous, anxious, or on edge 0 06/21 11:25 AM EDT Hellen Mullen Not being able to stop or co ntrol worrying 3 07/09/2024 11:25 AM EDT Hellen Mullen Worrying too much about diff erent things 3 07/09/2024 11:25 AM EDHellen Cruz Trouble relaxing 0 07/09/2024 11:25 AM EDT Hellen Mullen Being so restless that it is hard to sit still 0 07/09/2024 11:25 AM Hellen Fajardo Becoming easily annoyed or irritable 0 06/21 11:25 AM EDT Hellen Mullen Feeling afraid as if somethi ng awful might happen 1 07/09/2024 11:25 AM Hellen Fajardo KAILYN-7 Total Score 7 07/09/2024 11:25 AM EDHellen Cruz * Over the past 2 weeks, how often have you been bothered by any of the following problems? Question Answer Date of Assessment Author Little interest or pleasure in doing things Nearly every day 07/09/2024 11:27 AM EDT Hellen Mullen Feeling down, depressed, or hopeless More than half the days 07/09/2024 11:27 AM EDT Hellen Mullen Trouble falling or staying asleep, or sleeping too much Not at all 07/09/2024 11:27 AM EDT Hellen Mullen Feeling tired or having little energy More than half the days 07/09/2024 11:27 AM EDT Hellen Mullen Poor appetite or overeating More than half the days 07/09/2024 11:27 AM EDT Hellen Mullen Feeling bad about yourself - or that you are a failure or have let yourself or your family down Nearly every day 07/09/2024 11:27 AM EDT Hellen Mullen Trouble concentrating on things, such as reading the newspaper or watching television Several days 07/09/2024 11:27 AM EDT Hellen Mullen Moving or speaking so slowly that other people could have noticed? Or the opposite - being so fidgety or restless that you have been moving around a lot more than usual. Not at all 07/09/2024 11:27 AM EDT Hellen Mullen Thoughts that you would be better off or hurting yourself in some way Several days 07/09/2024 11:27 AM EDT Hellen Mullen Patient Health Questionnaire-9 Score 14 07/09/2024 11:27 AM EDT Russ Mullen documented as of this encounter Plan of Treatment Upcoming Encounters Date Type Department Care Team (Late st Contact Info) Description 11/17/2024 4:30 PM EDT Office Visit [facility] 112 [facility] 160 [place] [address] Chuyita Sutherland, BLOG WRITER-ANIMAL LABORATORY HELPER 112 [facility] 160 [place] [address] 11/18/2024 6:00 PM EDT Office Visit [facility] [address] [place] [phone] Romelia Otero NP [address] [place] [address] 12/03/2024 12:00 PM EDT Social Work [facility] [address] [facility] [address] [place] [address] Bhavin Miranda LPC documented as of this encounter Goals Goal Patient Goal Type Associated Problems Recent Progress Patient-Stated? Author Help patient manage antidepressant medication Care Plan Patient on antidepressant monitoring plan No Bonny Torrez NP documented as of this encounter Procedures Procedure Name Priority Date/Time Associated Diagnosis Comments US THYROID Routine 09/17/2021 11:42 AM EDT US THYROID Routine 11/08/2020 11:47 AM EDT US THYROID Routine 03/25/2020 12:01 PM EST US THYROID Routine 12/11/2019 11:51 AM EDT US THYROID Routine 12/05/2018 11:49 AM EDT US THYROID Routine 01/07/2018 11:53 AM EDT US THYROID Routine 09/21/2017 12:00 PM EDT US THYROID Routine 07/04/2017 11:54 AM EDT US THYROID Routine 01/14/2017 11:56 AM EDT US THYROID Routine 06/20/2016 11:57 AM EST US THYROID Routine 02/08/2016 11:58 AM EDT FINE NEEDLE ASPIRATION Routine 10/05/2015 12:04 PM EDT BIOPSY THYROID Routine 09/30/2015 11:45 AM EDT documented in this encounter Results * US thyroid (09/17/2021 11:42 AM EDT) Anatomical Region Laterality Modality Head, Neck Ultrasound us Shaikh Ambar ARAIZA IMG US PROCEDURES Final Result * US thyroid (11/08/2020 11:47 AM EDT) Anatomical Region Laterality Modality Head, Neck Ultrasound us Honorio Joyce MD IMG US PROCEDURES Final Result * US thyroid (03/25/2020 12:01 PM EST) Anatomical Region Laterality Modality Head, Neck Ultrasound us Efe Grace MD IMG US PROCEDURES Final Result * US thyroid (12/11/2019 11:51 AM EDT) Anatomical Region Laterality Modality Head, Neck Ultrasound us Efe Grace MD IMG US PROCEDURES Final Result * US thyroid (12/05/2018 11:49 AM EDT) Anatomical Region Laterality Modality Head, Neck Ultrasound us Efe Grace MD IMG US PROCEDURES Final Result * US thyroid (01/07/2018 11:53 AM EDT) Anatomical Region Laterality Modality Head, Neck Ultrasound us Efe Grace MD IMG US PROCEDURES Final Result * US thyroid (09/21/2017 12:00 PM EDT) Anatomical Region Laterality Modality Head, Neck Ultrasound us Efe Grace MD IMG US PROCEDURES Final Result * US thyroid (07/04/2017 11:54 AM EDT) Anatomical Region Laterality Modality Head, Neck Ultrasound us Efe Grace MD IMG US PROCEDURES Final Result * US thyroid (01/14/2017 11:56 AM EDT) Anatomical Region Laterality Modality Head, Neck Ultrasound us Efe Grace MD IMG US PROCEDURES Final Result * US thyroid (06/20/2016 11:57 AM EST) Anatomical Region Laterality Modality Head, Neck Ultrasound us Efe Grace MD IMG US PROCEDURES Final Result * US thyroid (02/08/2016 11:58 AM EDT) Anatomical Region Laterality Modality Head, Neck Ultrasound us Efe Grace MD IMG US PROCEDURES Final Result * Fine needle aspiration (10/05/2015 12:04 PM EDT) Fine Needle Aspirate us Noms Provider Unallocated LAB CYTOLOGY ORDERA BLES Final Result * Biopsy thyroid (09/30/2015 11:45 AM EDT) us Efe Grace MD IN CLINIC/BEDSIDE ORDERABLES Fi nal Result documented in this encounter Visit Diagnoses Not on filedocumented in this encounter Additional Health Concerns Active Problems Noted Date Diagnosed Date Patient on antidepressant monitoring plan 2023 Assessment Noted Time PHQ-9 Depression Total Score: 10 025 4:11 PM EST documented as of this encounter Care Teams Color Tester Relationship Specialty Start Date End Date Shaikh Villalta MD [address] [place] [address] PCP - [facility] 07/22/23 Yon De La Rosa MD [address] [place] [address] PCP - General Family Medicine 12/02/23 Bonny Shaw NP [address] [place] [address] Nurse Practitioner Family Medicine 12/02/23 10/06/24 Chuyita Sutherland APRN-ANIMAL LABORATORY HELPER 112 [facility] [address] [place] [address] Nurse Practitioner Psychiatry 05/07/24 Bhavin Miranda LPC [employer] Behavioral Health 05/27/24 Romelia Otero, BERRY [address] [place] [address] Nurse Practitioner Family Medicine 10/07/24 documented as of this encounter
--- OUTSIDE RECORDS SUMMARY | 2024-10-13 14:26 | XMS_ITS | Encounter Summary ---
Author Organization [facility] Address [address] [place] [address] Care Team Providers Care Circuit Court Clerk Name Role Phone Shaikh TEODORA Villalta Unavailable [phone] Yon De La Rosa MD Primary Care Provider [phone] Bonny Shaw RETORT SETTER Unavailable [phone] Chuyita Sutherland PRESS SHOP SUPERVISOR-EVENTS ASSISTANT Unavailable Bhavin Miranda LPC Unavailable Unavailable Romelia Otero RETORT SETTER Unavailable [phone] Encounter Details Date Type Department Care Team (Late st Contact Info) Description 08/17/2024 Orders Only [facility] [address] [facility] [address] [place] [phone] Melany Fierro MD [address] [facility] [address] [place], [place] [address] Social History Tobacco Use Types Packs/Day Years Used Date Smoking Tobacco: Former Cigarettes 1.5 40 0 04/22/1987 - 2007 Passive Smoke Exposure: Past Smokeless Tobacco: Never Comments:5-10 years since [facility] smoked. Alcohol Use Standard Drinks/Week Comments Yes [...] How often do you attend chur or taoism services? More than 4 times per year 06/30/2024 Do you belong to any clubs o r organizations such as catholic groups, unions, fraternal or athletic groups, or [...] Recorded Patient Health Questionnaire-2 Score 5 07/09/2024 [facility] [place] of Occupat ional Health - Occupational Stress [...] in a intermediate (including now)? No 05/06/2023 Housing Stability Vital [...] were you homeless or living in a intermediate (including now)? No 06/30/2024 Education Answer Date [...] Visit [facility] [address] [facility] [address] [place] [address] Chuyita Sutherland APRN-EVENTS ASSISTANT [address] [facility] [address] [place] [address] 11/18/2024 6:00 PM EDT Office Visit [facility] [address] [place] [address] Romelia Otero NP [address] [place] [address] 12/03/2024 12:00 PM EDT Social Work [facility] [address] [facility] [address] [place] [address] Bhavin Miranda LPC documented as of this encounter Goals Goal Patient Goal Type Associated Problems Recent Progress Patient-Stated? Author Help patient manage antidepressant medication Care Plan Patient on antidepressant monitoring plan No Bonny Torrez NP documented as of this encounter Procedures Procedure Name Priority Date/Time Associated Diagnosis Comments US NEEDLE GUIDED BIOPSY Routine 08/03/2024 2:47 PM EDT documented in this encounter Results * US NEEDLE GUIDED BIOPSY (08/03/2024 2:47 PM EDT) Anatomical Region Laterality Modality Radiographic Viki ging us Melany Fierro MD IMG XR PROCEDURES Final Resul t documented in this encounter Visit Diagnoses Not on filedocumented in this encounter Additional Health Concerns Active Problems Noted Date Diagnosed Date Patient on antidepressant monitoring plan 2023 Assessment Noted Time PHQ-9 Depression Total Score: 14 025 11:27 AM EDT documented as of this encounter Care Teams Circuit Court Clerk Relationship Specialty Start Date End Date Shaikh Villalta MD [address] [place] [address] PCP - [facility] 07/22/23 Yon De La Rosa MD [address] [place] [address] PCP - General Family Medicine 12/02/23 Bonny Shaw NP [address] [place] [address] Nurse Practitioner Family Medicine 12/02/23 10/06/24 Chuyita Sutherland APRN-EVENTS ASSISTANT [address] [address] [place] [address] Nurse Practitioner Psychiatry 05/07/24 Bhavin Miranda LPC Waste/Materials Exchange Specialist Behavioral Health 05/27/24 Romelia Otero NP [address] [place] [address] Nurse Practitioner Family Medicine 10/07/24 documented as of this encounter
--- OUTSIDE RECORDS SUMMARY | 2024-10-13 14:26 | XMS_ITS | Patient Health Record ---
Author Organization [facility] Address [address] [place] [address] Care Team Providers Care Medical Anthropologist Name Role Phone Brandon Alex Unavailable [phone] Allergies No Known Allergies Reason For Referral No Information Social History Tobacco Use: Social History Observation Description Date Details (start date - stop date) Never Smoker NA - NA Smoking History Question Answer Notes Smoking Status NonSmoker Problems Problem Type SNOMED Code ICD Code Onset Dates Problem Status W/U Status Risk Notes Problem [id number] Primary osteoarthritis of both knees (M17.0) Active confirmed Problem [id number] Rotator cuff arthropathy of right shoulder (M12.811) Active confirmed Plan Of Treatment No Information Insurance Providers Payer Name Payer Address Payer Phone Subscriber Number Group Number Insured Name Patient Relationship to Insured Coverage Start Date Coverage End Date Medicaid [employer] [place] [address] [place] [phone] [id number] RAQUEL MAURICE Self - patient is the insured Medical (General) History Medical History History ICD Code Heart problems: Yes Diabetes: Yes Blood Clots: Yes High Blood Pressure: Yes Depression: Yes Mental Illness: Yes Anxiety: Yes Kidney trouble Yes Sleep apnea: Yes CPAP Machine: Yes Do you use the CPAP machine? No Surgical History Surgery Date(Month/Year) 01/2000 Tonsils/Adenoids/uvula removed Rotator cuff
--- OUTSIDE RECORDS SUMMARY | 2024-10-13 14:26 | XMS_ITS | Encounter Summary ---
Author Organization [facility] Address [address] [place] [address] Care Team Providers Care Bulk Folder Name Role Phone Shaikh TEODORA Villalta Unavailable [phone] Yon De La Rosa MD Primary Care Provider [phone] Bonny Shaw INSTRUMENTATION FITTER Unavailable Chuyita Sutherland RESEARCH AFFILIATE-COBOL DEVELOPER Unavailable Bhavin Miranda LPC Unavailable Unavailable Romelia Otero INSTRUMENTATION FITTER Unavailable [phone] Encounter Details Date Type Department Care Team (Late st Contact Info) Description 06/25/2024 Abstract [facility] [address] [address] Amelia Moody, [facility] [address] [place] [address] Social History Tobacco Use Types Packs/Day Years Used Date Smoking Tobacco: Former Cigarettes 1.5 40 0 04/22/1987 - 2007 Passive Smoke Exposure: Past Smokeless Tobacco: Never Comments:5-10 years since [facility] smoked. Alcohol Use Standard Drinks/Week [...] How often do you attend chur or scientologist services? Never 05/06/2023 Do you belong to any clubs o r organizations such as jainism groups, unions, fraternal or athletic groups, or [...] Answer Date Recorded Patient Health Questionnaire-2 Score 2 05/27/2024 [facility] of Occupat ional Health - Occupational [...] in a fci (including now)? No 05/06/2023 Education Answer Date Recorded What is the [...] Visit [facility] [address] [facility] [address] [place] [address] Chuyita Sutherland, RESEARCH AFFILIATE-COBOL DEVELOPER [address] [facility] [address] [place] [address] 11/18/2024 6:00 PM EDT Office Visit [facility] [address] [place] [address] Romelia Otero, BERRY [address] [place] [address] 12/03/2024 12:00 PM EDT Social Work [facility] [address] [facility] [address] [place] [address] Bhavin Miranda LPC documented as of this [...] documented as of this encounter Care Teams Bulk Folder Relationship Specialty Start Date End Date Shaikh Villalta MD [address] [place] [address] PCP - [facility] 07/22/23 Yon De La Rosa MD [address] [place] [address] PCP - General Family Medicine 12/02/23 Bonny Shaw NP [address] [place] [address] Nurse Practitioner Family Medicine 12/02/23 10/06/24 Chuyita Sutherland, RESEARCH AFFILIATE-COBOL DEVELOPER [address] [address] Nurse Practitioner Psychiatry 05/07/24 Bhavin Miranda LPC Supervisor [employer] Behavioral Health 05/27/24 Romelia Otero NP [address] [place] [address] Nurse Practitioner Family Medicine 10/07/24 documented as of this encounter
--- OUTSIDE RECORDS SUMMARY | 2024-10-13 14:26 | XMS_ITS | Encounter Summary ---
Author Organization [facility] Address [address] [place] [address] Care Team Providers Care Rubber Moulding Machine Operator Name Role Phone Shaikh TEODORA Villalta Unavailable [phone] Yon De La Rosa MD Primary Care Provider [phone] Chuyita Sutherland LEAN SPECIALIST-RIVER CROSSING SUPERVISOR Unavailable Bhavin Miranda SQL SERVER CONSULTANT Unavailable Unavailable Romelia Otero NP Unavailable [phone] Encounter Details Date Type Department Care Team (Latest Contact Info) Description 10/13/2024 Travel Social History Tobacco Use Types Packs/Day [...] How often do you attend chur or buddhist services? More than 4 times per year 06/30/2024 Do you belong to any clubs o r organizations such as congregation groups, unions, fraternal or athletic groups, or [...] Recorded Patient Health Questionnaire-2 Score 5 07/09/2024 [facility] [place] of Occupat ional Health - Occupational Stress [...] place to sleep or slept in a custodial (including now)? No 05/06/2023 Housing Stability Vital Sign Answer Ja e Recorded In the last 12 months, was t here a time when you were not able to pay the mortgage or rent on time? Yes 06/30/2024 In the past 12 months, how m any times have you moved where you were living? 0 06/30/2024 At any time in the past 12 m [facility], were you homeless or living in a custodial (including now)? No 06/30/2024 Education Answer Date [...] Office Visit [facility] [address] [facility] [address] [place] [address] Chuyiat Sutherland, LEAN SPECIALIST-RIVER CROSSING SUPERVISOR [address] [facility] [address] [place] [address] 11/18/2024 6:00 PM EDT Office Visit [facility] [address] [place] [address] Romelia Otero NP [address] [place] [address] 12/03/2024 12:00 PM EDT Social Work [facility] [address] [facility] [address] [place] [address] Bhavin Miranda LPC documented as of this [...] documented as of this encounter Care Teams Rubber Moulding Machine Operator Relationship Specialty Start Date End Date Shaikh Villalta MD [address] [place] [address] PCP - [facility] 07/22/23 Yon De La Rosa MD [address] [place] [address] PCP - General Family Medicine 8/12/24 Chuyita Sutherland, LEAN SPECIALIST-RIVER CROSSING SUPERVISOR [address] [address] Nurse Practitioner Psychiatry 05/07/[address] Of Appeals Judge Behavioral Health 05/27/24 Romelia Otero NP [address] [place] [address] Nurse Practitioner Family Medicine 10/07/24 documented as of this encounter
--- OUTSIDE RECORDS SUMMARY | 2024-10-13 14:26 | XMS_ITS | Encounter Summary ---
Author Organization [facility] Address [address] [place] [address] Care Team Providers Care Repairer Sash And Door Name Role Phone Shaikh TEODORA Villalta Unavailable [phone] Yon De La Rosa MD Primary Care Provider [phone] Bonny Shaw GAS COMPRESSOR TURBINE OPERATOR Unavailable [phone] Chuyita Sutherland TELEVISION NEWS VIDEO EDITOR-EXECUTIVE HOUSEKEEPER Unavailable Bhavin Miranda LPC Unavailable Unavailable Romelia Otero GAS COMPRESSOR TURBINE OPERATOR Unavailable [phone] Encounter Details Date Type Department Care Team (Late st Contact Info) Description 08/04/2024 Orders Only [facility] [address] [facility] [address] [place] [phone] Melany Fierro MD [address] [facility] [address] [place], [place] [id number] Social History Tobacco Use Types Packs/Day Years Used Date Smoking Tobacco: Former Cigarettes 1.5 40 0 04/22/1987 - 2007 Passive Smoke Exposure: Past Smokeless Tobacco: Never Comments:5-10 years since [facility] smoked. Alcohol Use Standard Drinks/Week [...] How often do you attend chur or moravian services? More than 4 times per year 06/30/2024 Do you belong to any clubs o r organizations such as sikh groups, unions, fraternal or athletic groups, or [...] Patient Health Questionnaire-2 Score 5 07/09/2024 [facility] [place] of Occupat ional Health - Occupational Stress [...] in a long-term (including now)? No 05/06/2023 Housing Stability Vital [...] were you homeless or living in a long-term (including now)? No 06/30/2024 Education Answer Date [...] Visit [facility] [address] [facility] [address] [place] [address] Chuyita Sutherland APRN-EXECUTIVE HOUSEKEEPER [address] [facility] [address] [place] [address] 11/18/2024 6:00 PM EDT Office Visit [facility] [address] [place] [address] Romelia Otero NP [address] [place] [address] 12/03/2024 12:00 PM EDT Social Work [facility] [address] [facility] [address] [place] [address] Bhavin Miranda LPC documented as of this encounter Goals Goal Patient Goal Type Associated Problems Recent Progress Patient-Stated? Author Help patient manage antidepressant medication Care Plan Patient on antidepressant monitoring plan No Bonny Torrez NP documented as of this encounter Procedures Procedure Name Priority Date/Time Associated Diagnosis Comments US NEEDLE GUIDED BIOPSY Routine 08/03/2024 2:49 PM EDT FINE NEEDLE ASPIRATE Routine 08/03/2024 10:25 AM EDT documented in this encounter Results * US NEEDLE GUIDED BIOPSY (08/03/2024 2:49 PM EDT) Anatomical Region Laterality Modality Radiographic Viki ging us Melany Fierro MD IMG XR PROCEDURES Final Resul t * Fine Needle Aspirate (08/03/2024 10:25 AM EDT) Melany Fierro MD IN CLINIC/BEDSIDE ORDERABLES Final Result documented in this encounter Visit Diagnoses Not on filedocumented in this encounter Additional Health Concerns Active Problems Noted Date Diagnosed Date Patient on antidepressant monitoring plan 2023 Assessment Noted Time PHQ-9 Depression Total Score: 14 025 11:27 AM EDT documented as of this encounter Care Teams Repairer Sash And Door Relationship Specialty Start Date End Date Shaikh Villalta MD [address] [place] [address] PCP - [facility] 07/22/23 Yon De La Rosa MD [address] [place] [address] PCP - General Family [facility] 12/02/23 Bonny Shaw NP [address] [place] [address] Nurse Practitioner Family Medicine 12/02/23 10/06/24 Chuyita Sutherland APRN-EXECUTIVE HOUSEKEEPER [address] [place] [address] [place] [address] Nurse Practitioner Psychiatry 05/07/24 Bhavin Miranda LPC Switch Technician Behavioral Health 05/27/24 Romelia Otero NP [address] [place] [address] Nurse Practitioner Family Medicine 10/07/24 documented as of this encounter
--- OUTSIDE RECORDS SUMMARY | 2024-10-13 14:26 | XMS_ITS | Encounter Summary ---
Author Organization [facility] Address [address] [place] [address] Care Team Providers Care Mail Courier Name Role Phone Shaikh TEODORA Villalta Primary Care Provider [phone] Romelia Otero MD Primary Care Provider [phone] Reason for Visit * Reason Comments Med Refill Encounter Details Date Type Department Care Team (Late st Contact Info) Description 03/21/2022 Refill [facility] [address] [place] [address] Stanley Trent MD [address] [facility] [address] [facility] [place] [address] Coronary artery disease, unspecified vessel or lesion type, unspecified whether angina present, unspecified whether [place] or transplanted heart Social History Tobacco Use Types Packs/Day Years Used Date Smoking Tobacco: Never Assessed Comments Unknown Sex and Gender Information Value Date Recorded Sex Assigned at Female 05/12/2022 8:46 AM EST Legal Sex Female 9:36 PM EDT Gender Identity Female 05/12/2022 8:46 AM EST Sexual Orientation Heterosexual or Straight 01/2 04/2022 8:46 AM EST documented as of this encounter Plan of Treatment Upcoming Encounters Date Type Department Care Team (Late st Contact Info) Description 11/10/2024 11:30 AM EDT Office Visit [facility] [address] [facility] [address] Trey Winston MD [address] [place] [address] documented as of this encounter Visit Diagnoses Diagnosis Coronary artery disease, unspecified vessel or lesion type, unspecified whether angina present, unspecified whether [place] or transplanted heart documented in this encounter Care Teams Mail Courier Relationship Specialty Start Date End Date Shaikh Villalta MD [address] [place] [address] PCP - General Family Medicine 06/07/22 07/05/24 Romelia Otero MD [address] [place] [address] PCP - General Nurse Practitioner 07/06/24 documented as of this encounter
--- OUTSIDE RECORDS SUMMARY | 2024-10-13 14:26 | XMS_ITS | Encounter Summary ---
Author Organization [facility] Address [address] [place] [address] Care Team Providers Care Patient Case Coordinator Name Role Phone Shaikh TEODORA Villalta Primary Care Provider [phone] Shaikh TEODORA Villalta Primary Care Provider [phone] Shaikh TEODORA Villalta Unavailable [phone] Yon De La Rosa MD Primary Care Provider [phone] Bonny Shaw OPERATIONS SUPERVISOR Unavailable Chuyita Sutherland NOTARY PUBLIC-SALES REPRESENTATIVE SALES MANAGER Unavailable Bhavin Miranda COUNTER DISH CARRIER Unavailable Unavailable Romelia Otero OPERATIONS SUPERVISOR Unavailable [phone] Encounter Details Date Type Department Care Team (Late st Contact Info) Description 12/04/2022 Clinisync Result Encounter [facility] External Department Unsolicited Shaikh Villalta MD [address] [place] [address] Social History Tobacco Use Types Packs/Day Years Used Date Smoking Tobacco: Former Cigarettes Smokeless Tobacco: Never Comments:5-10 years since [facility] smoked. Alcohol Use Standard Drinks/Week Comments [...] [facility] [address] [facility] [address] [place] [address] Chuyita Sutherland, NOTARY PUBLIC-SALES REPRESENTATIVE SALES MANAGER [address] [facility] [address] [place] [address] 11/18/2024 6:00 PM EDT Office Visit [facility] [address] [place] [address] Romelia Otero, OPERATIONS SUPERVISOR [address] [place] [address] 12/03/2024 12:00 PM EDT Social Work [facility] [address] [facility] [address] [place] [phone] Bhavin Miranda LPC documented as of this encounter Procedures Procedure Name Priority Date/Time Associated Diagnosis Comments US BIOPSY THYROID 12/04/2022 5:0 0 PM EDT documented in this encounter Results * US BIOPSY THYROID (12/04/2022 5:00 PM EDT) Anatomical Region Laterality Modality Other 12/04/2022 5:00 PM EDT Narrative 11/15/2023 11:54 AM EDT The [address] [address] Ultrasound Report Signed with Noah Patient: RAQUEL VILA MR#: [id number] : 1965 Acct:[id number] Age/Sex: 56 / F ADM Date: 12/04/22 Loc: US Attending Dr: Shaikh Ambar Morin Ordering Physician: Shaikh Mikel Villalta Date of Service: 12/04/22 Procedure(s): US biopsy thyroid Accession Number(s): [id number] cc: Shaikh Mikel Villalta ADDENDUM The [address] [address] Patient Name: RAQUEL VILA MRN: [facility]:[id number] date: 1965 Sex: F Assigned Patient Location: US Current Patient Location: Accession/Order Number: [id number] Exam Date: 12/04/2022 13:45 Report Date: 12/20/2022 15:09 At the request of: SHAIKH AMBAR Procedure: US biopsy thyroid Begin Addendum #1 COLLECTED DATE/TIME: 12/04/2022 13:40 EDT Final Diagnosis Report for [facility], [place] NECK MASS, FINE NEEDLE ASPIRATION: -BENIGN. COMMENT: An intradepartmental consult was obtained with concurrence. 12/13/[address] Villalta. 12/19/2022, after multiple phone calls, no one returned call for verification of receipt. Original Report EXAMINATION: US biopsy thyroid HISTORY: Abnormal ultrasound - mass COMPARISON: Ultrasound thyroid 11/22/2022 TECHNIQUE: After obtaining informed consent, ultrasound-guided fine needle aspiration was performed in the usual sterile manner. FINDINGS: IMAGING: Ultrasound. BIOPSY NEEDLE: 25-gauge single 3 separate passes LOCATION: Oval slightly heterogeneous mass within versus adjacent superior margin of the thyroid isthmus. SPECIMEN TYPE: Cellular tissue. LOCAL ANESTHETIC: Buffered Xylocaine. COMPLICATIONS: None. LABORATORY: Prepared slide smears and washings for cell block evaluation. OTHER: Negative. PATHOLOGY: Pending. An addendum will be added when results are available. Addendum Dictated By: Brandon Gonzalez M.D. Addendum Signed By: <Electronically signed by Brandon Gonzalez M.D.> 11/15/23 1154 Addendum Cosigned By: DD/ TD/TT: / ADDENDUM US/US biopsy thyroid IMPRESSION: 1. Uneventful ultrasound guided fine needle aspiration (FNA). 2. Pathology results are pending. Electronically authenticated by: BRANDON GONZALEZ Date: 12/20/2022 15:09 Addendum Dictated By: Brandon Gonzalez M.D. Addendum Signed By: <Electronically signed by Brandon Gonzalez M.D.> 11/15/23 1154 Addendum Cosigned By: DD/ TD/TT: / The [place] [address] Patient Name: RAQUEL VILA MRN: [facility]:[id number] date: 1965 Sex: F Assigned Patient Location: US Current Patient Location: Accession/Order Number: [id number] Exam Date: 12/04/2022 13:45 Report Date: 12/04/2022 17:00 At the request of: SHAIKH ABMAR Procedure: US biopsy thyroid EXAMINATION: US biopsy thyroid HISTORY: Abnormal ultrasound - mass COMPARISON: Ultrasound thyroid 11/22/2022 TECHNIQUE: After obtaining informed consent, ultrasound-guided fine needle aspiration was performed in the usual sterile manner. FINDINGS: IMAGING: Ultrasound. BIOPSY NEEDLE: 25-gauge single 3 separate passes LOCATION: Oval slightly heterogeneous mass within versus adjacent superior margin of the thyroid isthmus. SPECIMEN TYPE: Cellular tissue. LOCAL ANESTHETIC: Buffered Xylocaine. COMPLICATIONS: None. LABORATORY: Prepared slide smears and washings for cell block evaluation. OTHER: Negative. PATHOLOGY: Pending. An addendum will be added when results are available. US/US biopsy thyroid IMPRESSION: 1. Uneventful ultrasound guided fine needle aspiration (FNA). 2. Pathology results are pending. Electronically authenticated by: BRANDON GONZALEZ Date: 12/04/2022 17:00 Dictated By: Brandon Gonzalez M.D. Signed By: 12/04/221702 DD/ 99 TD/TT: Biofuels Plant Manager: Procedure Note Radiology, Radiologist, - 11/15/2023 [place] [address] Ultrasound Report Signed with Addenda Patient: RAQUEL VILA LMR#: [id number] : 1965Acct:[id number] Age/Sex: 56 / FADM Date: 12/04/22 Loc: US Attending Dr: Shaikh Ambar Morin Ordering Physician: Shaikh Mikel Villalta Date of Service: 12/04/22 Procedure(s): US biopsy thyroid Accession Number(s): [id number] cc: Shaikh Mikel Villalat ADDENDUM The [address] [address] Patient Name: RAQUEL VILA MRN: [id number] date: 1965 Sex: F Assigned Patient Location: US Current Patient Location: Accession/Order Number: [id number] Exam Date: 12/04/2022 13:45 Report Date: 12/20/2022 15:09 At the request of: SHAIKH AMBAR Procedure: US biopsy thyroid Begin Addendum #1 COLLECTED DATE/TIME: 12/04/2022 13:40 EDT Final Diagnosis Report for [facility], [place] NECK MASS, FINE NEEDLE ASPIRATION: -BENIGN. COMMENT: An intradepartmental consult was obtained with concurrence. 12/13/[address] Villalta. 12/19/2022, after multiple phone calls, noone returned call for verification of receipt. Original Report EXAMINATION: US biopsy thyroid HISTORY: Abnormal ultrasound - mass COMPARISON: Ultrasound thyroid 11/22/2022 TECHNIQUE: After obtaining informed consent, ultrasound-guided fine needle aspiration was performed in the usual sterile manner. FINDINGS: IMAGING: Ultrasound. BIOPSY NEEDLE: 25-gauge single 3 separate passes LOCATION: Oval slightly heterogeneous mass within versus adjacent superior margin of the thyroid isthmus. SPECIMEN TYPE: Cellular tissue. LOCAL ANESTHETIC: Buffered Xylocaine. COMPLICATIONS: None. LABORATORY: Prepared slide smears and washings for cell block evaluation. OTHER: Negative. PATHOLOGY: Pending. An addendum will be added when results are available. Addendum Dictated By: Brandon Gonzalez M.D. Addendum Signed By: <Electronically signed by Brandon Gonzalez M.D.> 11/15/23 1154 Addendum Cosigned By: DD/ TD/TT: / ADDENDUM US/US biopsy thyroid IMPRESSION: 1. Uneventful ultrasound guided fine needle aspiration (FNA). 2. Pathology results are pending. Electronically authenticated by: BRANDON GONZALEZ Date: 12/20/2022 15:09 Addendum Dictated By: Brandon Gonzalez M.D. Addendum Signed By: <Electronically signed by Brandon Gonzalez M.D.> 11/15/231153 Addendum Cosigned By: DD/ TD/TT: / [place] [address] Patient Name: RAQUEL VILA MRN: [id number] date: 1965 Sex: F Assigned Patient Location: US Current Patient Location: Accession/Order Number: [id number] Exam Date: 12/04/2022 13:45 Report Date: 12/04/2022 17:00 At the request of: SHAIKH AMBAR Procedure: US biopsy thyroid EXAMINATION: US biopsy thyroid HISTORY: Abnormal ultrasound - mass COMPARISON: Ultrasound thyroid 11/22/2022 TECHNIQUE: After obtaining informed consent, ultrasound-guided fine needle aspiration was performed in the usual sterile manner. FINDINGS: IMAGING: Ultrasound. BIOPSY NEEDLE: 25-gauge single 3 separate passes LOCATION: Oval slightly heterogeneous mass within versus adjacent superior margin of the thyroid isthmus. SPECIMEN TYPE: Cellular tissue. LOCAL ANESTHETIC: Buffered Xylocaine. COMPLICATIONS: None. LABORATORY: Prepared slide smears and washings for cell block evaluation. OTHER: Negative. PATHOLOGY: Pending. An addendum will be added when results are available. US/US biopsy thyroid IMPRESSION: 1. Uneventful ultrasound guided fine needle aspiration (FNA). 2. Pathology results are pending. Electronically authenticated by: BRANDON GONZALEZ Date: 12/04/2022 17:00 Dictated By: Brandon Gonzalez M.D. Signed By:12/04/221702 DD/ 99 TD/TT: Biofuels Plant Manager: us Shaikh Ambar [facility] Final Result documented in this encounter Visit Diagnoses Not on filedocumented in this encounter Care Teams Patient Case Coordinator Relationship Specialty Start Date End Date Shaikh Villalta MD PCP - General Internal Medicine 11/01/22 08/11/23 Shaikh Villalta MD [address] [place] [address] PCP - General Internal Medicine 08/12/23 12/01/23 Shaikh Villalta MD [address] [place] [address] PCP - [facility] 07/22/23 Yon De La Rosa MD [address] [place] [address] PCP - General Family Medicine 12/02/23 Bonny Shaw NP [address] [place] [address] Nurse Practitioner Family Medicine 12/02/23 10/06/24 Chuyita Sutherland, NOTARY PUBLIC-SALES REPRESENTATIVE SALES MANAGER [address] [facility] [place] [address] Nurse Practitioner Psychiatry 05/07/24 Bhavin Miranda LPC Surveying Or Spatial Science Technician Behavioral Health 05/27/24 Romelia Otero, BERRY [address] [place] [address] Nurse Practitioner Family Medicine 10/07/24 documented as of this encounter
--- OUTSIDE RECORDS SUMMARY | 2024-10-13 14:26 | XMS_ITS | Encounter Summary ---
Author Organization [facility] Address [address] [place] [address] Care Team Providers Care Analytics Specialist Name Role Phone Shaikh TEODORA Villalta Unavailable [phone] Yon De La Rosa MD Primary Care Provider [phone] Chuyita Sutherland BIOMATHEMATICIAN-V BELT COVERER Unavailable Bhavin Miranda [facility] Unavailable Unavailable Romelia Otero NP Unavailable [phone] Reason for Referral * Medications - Pending Review Specialty Diagnoses / Procedures Referred By Ana Laura t Referred To Contact Diagnoses CKD (chronic kidney disease) stage 4, GFR 15-29 ml/min ([facility]) Type 2 diabetes mellitus with stage 4 chronic kidney disease, without long-term current use of insulin ([facility]) Romelia Otero NP [address] [place] [address] Phone: tel: fax: Referral ID Status Reason Start Date Expiration Date V isits Requested Visits Authorized [id number] Pending Review 1 1 Reason for Visit * Reason Comments Med Refill Encounter Details Date Type Department Care Team (Late st Contact Info) Description 10/12/2024 Refill [facility] [address] [place] [phone] Yon De La Rosa MD [address] [place] [address] CKD (chronic kidney disease) stage 4, GFR 15-29 ml/min (HCC); Hyperlipidemia, unspecified hyperlipidemia type ; Type 2 diabetes mellitus with stage 4 chronic kidney disease, without long-term current use of insulin ([facility]) Social History Tobacco Use Types Packs/Day Years Used Date Smoking Tobacco: Former Cigarettes 1.5 40 0 04/22/1987 - 2007 Passive Smoke Exposure: Past Smokeless Tobacco: Never Comments:5-10 years since [facility] smoked. Alcohol Use Standard Drinks/Week Comments Yes [...] How often do you attend chur or congregational services? More than 4 times per year 06/30/2024 Do you belong to any clubs o r organizations such as roman catholic groups, unions, fraternal or athletic groups, [...] Recorded Patient Health Questionnaire-2 Score 5 07/09/2024 [facility] of Occupat ional Health - Occupational Stress [...] place to sleep or slept in a group home (including now)? No 05/06/2023 Housing Stability [...] any time in the past [address] [facility], were you homeless or living in a group home (including now)? No 06/30/2024 Education Answer [...] [facility] [address] [facility] [address] [place] [address] Chuyita Sutherland, BIOMATHEMATICIAN-V BELT COVERER [address] [facility] [address] [place] [address] 11/18/2024 6:00 PM EDT Office Visit [facility] [address] [place] [phone] Romelia Otero NP [address] [place] [address] 12/03/2024 12:00 PM EDT Social Work [facility] [address] [facility] [address] [place] [address] Bhavin Miranda LPC documented as of this encounter Goals Goal Patient Goal Type Associated Problems Recent Progress Patient-Stated? Author Help patient manage antidepressant medication Care Plan Patient on antidepressant monitoring plan No Bonny Torrez NP documented as of this encounter Visit Diagnoses Diagnosis CKD (chronic kidney disease) stage 4, GFR 15-29 ml/min (HCC) Chronic kidney disease, Stage IV (severe) Hyperlipidemia, unspecified hyperlipidemia type Type 2 diabetes mellitus with stage 4 chronic kidney disease, without long-term current use of insulin ([facility]) documented in this encounter Additional Health Concerns Active Problems Noted Date Diagnosed Date Patient on antidepressant monitoring plan 2023 Assessment Noted Time PHQ-9 Depression Total Score: 14 025 11:27 AM EDT documented as of this encounter Care Teams Analytics Specialist Relationship Specialty Start Date End Date Shaikh Villalta MD [address] [place] [address] PCP - [facility] 07/22/23 Yon De La Rosa MD [address] [place] [address] PCP - General Family Medicine 12/02/23 Chuyita Sutherland APRN-V BELT COVERER [address] [facility] [address] [place] [address] Nurse Practitioner Psychiatry 05/07/24 Bhavin Miranda LPC Meat Manager Behavioral Health 05/27/24 Romelia Otero NP [address] [place] [address] Nurse Practitioner Family Medicine 10/07/24 documented as of this encounter
--- OUTSIDE RECORDS SUMMARY | 2024-10-13 14:26 | XMS_ITS | Encounter Summary ---
Author Organization [facility] Address [address] [place] [address] Care Team Providers Care Senior Controls Engineer Name Role Phone Honorio Joyce MD Primary Care Provider [phone] Shaikh TEODORA Villalta Primary Care Provider [phone] Shaikh TEODORA Villalta Primary Care Provider [phone] Shaikh TEODORA Villalta Unavailable [phone] Yon De La Rosa MD Primary Care Provider [phone] Bonny Shaw TRAVELIFT OPERATOR Unavailable Chuyita Sutherland PACKAGER HAND-FILENET ADMIN Unavailable Bhavin Miranda PARTY COORDINATOR Unavailable Unavailable Romelia Otero TRAVELIFT OPERATOR Unavailable [phone] Encounter Details Date Type Department Care Team (Late st Contact Info) Description 01/11/2020 Abstract [facility] [address] [place] [phone] Amelia Moody, [facility] [address] [place] [address] Social History Tobacco Use Types Packs/Day Years [...] [address] [place] [address] [place] [address] Chuyita Sutherland, PACKAGER HAND-FILENET ADMIN [address] [place] [address] [place] [address] 11/18/2024 6:00 PM EDT Office Visit [facility] [address] [place] [address] Romelia Otero, TRAVELIFT OPERATOR [address] [place] [address] 12/03/2024 12:00 PM EDT Social Work [facility] [address] [facility] [address] [place] [address] Bhavin Miranda, ADAM documented as of this encounter Visit Diagnoses Not on filedocumented in this encounter Care Teams Senior Controls Engineer Relationship Specialty Start Date End Date Honorio Joyce MD PCP - General Family Medicine 09/25/22 10/31/22 Shaikh Villalta MD PCP - General Internal Medicine 11/01/22 08/11/23 Shaikh Villalta MD [address] [place] [phone] PCP - General Internal Medicine 08/12/23 12/01/23 Shaikh Villalta MD [address] [place] [address] PCP - [facility] 07/22/23 Yon De La Rosa MD [address] [place] [address] PCP - General Family Medicine 12/02/23 Bonny Shaw, BERRY [address] [place] [phone] Nurse Practitioner Family Medicine 12/02/23 10/06/24 Chuyita Sutherland, PACKAGER HAND-FILENET ADMIN [address] [facility] [place] [address] Nurse Practitioner Psychiatry 05/07/24 Bhavin Miranda LPC Entry Level Machine Operator Behavioral Health 05/27/24 Romelia Otero NP [address] [place] [address] Nurse Practitioner Family Medicine 10/07/24 documented as of this encounter
--- OUTSIDE RECORDS SUMMARY | 2024-10-13 14:26 | XMS_ITS | Encounter Summary ---
Author Organization [facility] Address [address] [place] [address] Care Team Providers Care Straightener Hand Name Role Phone Shaikh TEODORA Villalta Primary Care Provider [phone] Shaikh TEODORA Villalta Primary Care Provider [phone] Shaikh TEODORA Villalta Unavailable [phone] Yon De La Rosa MD Primary Care Provider [phone] Bonny Shaw ENDOCRINOLOGIST Unavailable Chuyita Sutherland STATISTICAL ENGINEER-TRAFFIC CONTROLLER CABLE Unavailable Bhavin Miranda CHAIR UPHOLSTERER Unavailable Unavailable Romelia Otero ENDOCRINOLOGIST Unavailable [phone] Encounter Details Date Type Department Care Team (Late st Contact Info) Description 11/07/2022 Abstract [facility] [address] [facility] [address] [place] [address] Antonella Hurt MA Social History Tobacco Use Types Packs/Day Years Used Date Smoking Tobacco: Former Cigarettes Smokeless Tobacco: Never Comments:5-10 years since smoked. Alcohol Use Standard Drinks/Week Comments Not Currently 0 (1 standard drink = 0.6 oz pure alcohol) caffeine intake: 3-4 cups per day of soda/pop Comments Unknown Sex and Gender Information Value Date Recorded Sex Assigned at Female 09/03/2022 12:48 PM EDT Legal Sex Female 6:50 PM EDT Gender Identity Female 09/03/2022 12:48 PM EDT Sexual Orientation Straight 09/03/2022 12 :48 PM EDT COVID-19 Exposure Response Date Recorded In the last 10 days, have yo u been in contact with someone who was confirmed or suspected to have Coronavirus/COVID-19? No / Unsure 10/10/2022 6:19 PM EDT documented as of this encounter Plan of Treatment Upcoming Encounters Date Type Department Care Team (Late st Contact Info) Description 11/17/2024 4:30 PM EDT Office Visit [facility] [address] [facility] [address] [place] [address] Chuyita Sutherland, STATISTICAL ENGINEER-TRAFFIC CONTROLLER CABLE [address] [facility] [address] [place] [address] 11/18/2024 6:00 PM EDT Office Visit [facility] [address] [place] [address] Romelia Otero, ENDOCRINOLOGIST [address] [place] [address] 12/03/2024 12:00 PM EDT Social Work [facility] [address] [facility] [address] [place] [phone] Bhavin Miranda LPC documented as of this encounter Visit Diagnoses Not on filedocumented in this encounter Care Teams Straightener Hand Relationship Specialty Start Date End Date Shaikh Villalta MD PCP - General Internal Medicine 11/01/22 08/11/23 Shaikh Villalta MD [address] [place] [address] PCP - General Internal Medicine 08/12/23 12/01/23 Shaikh Villalta MD [address] [place] [address] PCP - [facility] 07/22/23 Yon De La Rosa MD [address] [place] [address] PCP - General Family Medicine 12/02/23 Bonny Shaw NP [address] [place] [address] Nurse Practitioner Family Medicine 12/02/23 10/06/24 Chuyita Sutherland APRN-TRAFFIC CONTROLLER CABLE [address] [address] [place] [address] Nurse Practitioner Psychiatry 05/07/24 Bhavin Miranda LPC [facility] 05/27/24 Romelia Otero NP [address] [place] [address] Nurse Practitioner Family Medicine 10/07/24 documented as of this encounter
--- OUTSIDE RECORDS SUMMARY | 2024-10-13 14:26 | XMS_ITS | Clinical Summary ---
Author Organization [employer] Address [id number] [address] 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 magnesium oxide (MAG-OX) 400 mg tabletIndications :hypomagnesemia Take 1 tablet (400 mg total) by mouth nightly Indications: low amount of magnesium in the blood. Active omeprazole (PriLOSEC) 20 mg capsuleIndication s:gastroesophagea l reflux disease Take 1 capsule (20 mg total) by mouth in the morning. Indications: gastroesophageal reflux disease. Active aspirin 81 mgIndications:manuelito cardial infarction prevention Take 1 tablet (81 mg total) by mouth in the morning. Indications: treatment to prevent a heart attack. Active pramipexole (MIRAPEX) 1 mg tabletIndications :restless leg syndrome Take 1 tablet (1 mg total) by mouth nightly Indications: restless legs syndrome, an extreme discomfort in the calf muscles when sitting or lying down. Active furosemide (LASIX) 40 mg tabletIndications :edema Take 1 tablet (40 mg total) by mouth every other day Indications: visible water retention. Pt was instructed to take 1 full pill every other day, alternate days 1/2 pill Active atorvastatin (LIPITOR) 20 mg tablet Take 1 tablet (20 mg total) by mouth in the morning. Active carvediloL (COREG) 3.125 mg tabletIndications :hypertension Take 1 tablet (3.125 mg total) by mouth in the morning and 1 tablet (3.125 mg total) in the evening. Take with meals. Indications: high blood pressure. Active FARXIGA 10 mg tabletIndications :type 2 diabetes mellitus Take 1 tablet (10 mg total) by mouth in the morning. Indications: type 2 diabetes mellitus. Active pregabalin (LYRICA) 150 mg capsule Take 1 capsule (150 mg total) by mouth in the morning and 1 capsule (150 mg total) before bedtime. Pain . 12/21/19 23 Active OZEMPIC 2 mg/dose (8 mg/3 mL) pen injectorIndicatio ns:type 2 diabetes mellitus Inject 2 mg under the skin once a week Indications: type 2 diabetes mellitus. Takes on Sundays last dose 10/20/2023 Active cholecalciferol, vitamin D3, 2,000 units tabletIndications :prevention of vitamin D deficiency Take 1 tablet (2,000 Units total) by mouth in the morning. Indications: prevention of vitamin D deficiency. Active ALPRAZolam (XANAX) 0.5 mg tabletIndications :anxiety with depression Take 1 tablet (0.5 mg total) by mouth nightly as needed for anxiety Indications: anxiousness associated with depression. Active acetaminophen (TYLENOL ARTHRITIS) 650 mg 8 hr tablet Take 2 tablets (1,300 mg total) by mouth every 8 (eight) hours as needed for pain (pain). Active lisinopriL (PRINIVIL,ZESTRIL ) 2.5 mg tablet Take 4 tablets (10 mg total) by mouth in the morning. 10/11/19 22 Active diphenhydrAMINE-a cetaminophen (TYLENOL PM) 25-500 mg tablet Take 2 tablets by mouth nightly. 10/15/19 24 Active busPIRone (BUSPAR) 7.5 mg tablet Take 1 tablet (7.5 mg total) by mouth in the morning and 1 tablet (7.5 mg total) before bedtime. 10/08/19 24 Active TRUE METRIX GLUCOSE TEST STRIP strip 1 strip by other route every morning before breakfast. 09/21/19 24 Active buPROPion XL (WELLBUTRIN XL) 300 mg 24 hr tablet Take 1 tablet (300 mg total) by mouth in the morning. Active escitalopram (LEXAPRO) 20 mg tablet Take 1 tablet (20 mg total) by mouth in the morning. 12/16/19 24 Active traMADoL (ULTRAM) 50 mg tabletIndications :Primary osteoarthritis of both knees Take 1 tablet (50 mg total) by mouth every 6 (six) hours as needed for pain for up to 28 doses. 28 tablet 06/23/19 Active CAPLYTA 42 mg capsule capsule Take 1 capsule (42 mg total) by mouth in the morning. 05/27/19 Active Active Problems Problem Noted Date Diagnosed Date Biceps tendinitis on left 10/01/2023 Arthritis of left acromioclavicular joint 2023 Traumatic complete tear of left rotator cuff 02/2024 Impingement of left shoulder 10/01/2023 Impingement of right shoulder 10/01/2023 Severe episode of recurrent major depressive disorder, without psychotic features 03/22/2021 Generalized anxiety disorder 03/22/2021 Encounters Date Type Department Care Team Description 07/27/2024 10:05 AM EDT Procedure visit [facility] [address] [place] [address] Ralph Milton MD Primary osteoarthritis of both knees (Primary Dx) 07/27/2024 Travel 07/20/2024 1:30 PM EDT Procedure visit [facility] [address] [place] [address] Ralph Milton MD Primary osteoarthritis of both knees (Primary Dx) 07/20/2024 Travel 07/14/2024 1:30 PM EDT Procedure visit [facility] [address] [place] [address] Ralph Milton MD Primary osteoarthritis of both knees (Primary Dx) 07/13/2024 Travel from Last 3 Months Family History Medical History Relation Name Comments Arthritis Mother Khadijah Waller Cancer Mother Khadijah Waller Diabetes Mother Khadijah Waller Hypertension Mother Khadijah Waller Cancer Sister Relation Name Status Comments Mother Khadijah Waller Alive Sister Alive Social History Tobacco Use Types Packs/Day Years Used Date Smoking Tobacco: Former Cigarettes 2 20 Q uit: 12/09/2005 Passive Smoke Exposure: Never Smokeless Tobacco: Never Tobacco Cessation:Counseling Given: Not Answered Alcohol Use Standard Drinks/Week Comments Yes 0 (1 standard drink = 0.6 oz pur e alcohol) Social Childcare Answer Date Recorded Childcare Unknown 09/30/2018 Employment Answer Date Recorded Employment Unknown 09/30/2018 Hunger Screening Answer Date Recorded Within the past 12 months we worried whether our food would run out before we got money to buy more. Never True 07/27/2024 Within the past 12 months th e food we bought just didn't last and we didn't have money to get more. Never True 07/27/2024 Comments No Sex and Gender Information Value Date Recorded Sex Assigned at Not on file Legal Sex Female 6:31 PM EDT Gender Identity Not on file Sexual Orientation Not on file Last Filed Vital Signs Vital Sign Reading Time Taken Comments Blood Pressure 145/84 02/07/2024 6:00 PM EDT Pulse 80 02/07/2024 6:00 PM EDT Temperature 37.1 C (98.7 F) 02/07/2024 6:04 PM EDT Respiratory Rate 20 02/07/2024 5:40 PM EDT Oxygen Saturation 96% 02/07/2024 6:00 PM EDT Inhaled Oxygen Concentration - - Weight 105.7 kg (233 lb) 07/27/2024 10:01 AM EDT Height 162.6 cm (5' 4 ) 07/27/2024 10:01 AM EDT Body Mass Index 39.99 07/27/2024 10:01 AM EDT Plan of Treatment Upcoming Encounters Date Type Department Care Team (Late st Contact Info) Description 10/26/2024 11:20 AM EDT Office Visit [facility] [address] [address] Ralph Milton MD [address] [address] Health Maintenance Due Date Last Done Comments Depression Screening 1977 Adult BMI Follow Up Plan 12/11/1983 DTaP,Tdap and Td Vaccines (1 - Tdap) 1984 Zoster (Shingles) Vaccine (1 of 2) 12/11/2015 Pap Smear 11/30/2018 12/01/2015 COVID-19 Vaccine (3 - 2023-2 5 season) 2023 08/03/2020, 07/12/2020 Influenza Vaccine 12/21/2024 06/11/2023, , 04/08/2017, Additional history exists Adult BMI Screening 07/27/2025 07/27/2024 Tobacco Screening 07/27/2025 07/27/2024 Medical Devices Implanted Type Area Paid Internship Device Identifier Shelf Expiration Date Model / Serial / Lot [employer] Sut 2 Swivelock Pk 19.1mm Ea=Bill Only - [id number] Implanted:Qty : 1 on 10/31/2023 by Ralph Milton MD at [facility] [employer] Ar[employer]rex [id number] 06/19/2028 [id number] SLC / / [id number] [employer] Sut 5.5mm Swivelock 19.1mm Ea=Bill Only [id number] [id number] - Sna - [id number] Implanted:Qty : 1 on 10/31/2023 by Ralph Milton MD at [facility] [employer] Left: Shoulder Arthrex 12/21/2027 [id number] SLC / NA / [id number] Procedures Procedure Name Priority Date/Time Associated Diagnosis Comments RI ARTHROCENTESIS ASPIR&/INJ MAJOR JT/BURSA W/O US Routine 07/27/2024 8:14 AM EDT Primary osteoarthritis of both knees RI ARTHROCENTESIS ASPIR&/INJ MAJOR JT/BURSA W/O US Routine 07/20/2024 1:35 PM EDT Primary osteoarthritis of both knees RI ARTHROCENTESIS ASPIR&/INJ MAJOR JT/BURSA W/O US Routine 07/14/2024 1:02 PM EDT Primary osteoarthritis of both knees HIGH RISK HPV W/ISSA Routine 12/01/2015 12:00 PM EDT from Last 3 Months or Most Recently Relevant to Health Maintenance Results * RI ARTHROCENTESIS ASPIR&/INJ MAJOR JT/BURSA W/O US (07/27/2024 8:14 AM EDT) Narrative MANUALLY TRANSCRIBED RESULTS - 07/27/2024 8:14 AM EDT Ralph Milton MD 07/27/2024 11:20 AM $ Large Joint Injection: bilateral knee on 07/27/2024 8:14 AM Indications: pain Details: 22 G needle, anterolateral approach Medications (Right): 20 mg sodium hyaluronate (viscosup) 10 mg/mL(mw 2.4 -3.6 million) Medications (Left): 20 mg sodium hyaluronate (viscosup) 10 mg/mL(mw 2.4 -3.6 million) Outcome: tolerated well, no immediate complications The patient was instructed to use ice, NSAIDs, or Tylenol for pain as needed. The patient will call with any signs or concerns. Procedure, treatment alternatives, risks and benefits explained, specific risks discussed. Patient was prepped and draped in the usual sterile fashion. us Ralph Milton MD PROCEDURE/MINOR SURGICAL OR DERABLES Final Result MANUALLY TRANSCRIBED RESULTS * RI ARTHROCENTESIS ASPIR&/INJ MAJOR JT/BURSA W/O US (07/20/2024 1:35 PM EDT) Narrative MANUALLY TRANSCRIBED RESULTS - 07/20/2024 1:35 PM EDT Ralph Milton MD 07/20/2024 10:38 PM Large Joint Arthrocentesis: bilateral knee on 07/20/2024 1:35 PM Indications: pain Details: 22 G needle, anterolateral approach Medications (Right): 20 mg sodium hyaluronate (viscosup) 10 mg/mL(mw 2.4 -3.6 million) (Euflexxa) Medications (Left): 20 mg sodium hyaluronate (viscosup) 10 mg/mL(mw 2.4 -3.6 million) (Euflexxa) Outcome: tolerated well, no immediate complications The patient was instructed to use ice, NSAIDs, or Tylenol for pain as needed. The patient will call with any signs or concerns. Procedure, treatment alternatives, risks and benefits explained, specific risks discussed. Patient was prepped and draped in the usual sterile fashion. Ralph Milton MD PROCEDURE/MINOR SURGICAL OR DERABLES Final Result Performing Organization Address [facility] de Phone Number MANUALLY TRANSCRIBED RESULTS * RI ARTHROCENTESIS ASPIR&/INJ MAJOR JT/BURSA W/O US (07/14/2024 1:02 PM EDT) Narrative MANUALLY TRANSCRIBED RESULTS - 07/14/2024 1:02 PM EDT Ralph Milton MD 07/16/2024 4:56 PM $ Large Joint Injection: bilateral knee on 07/14/2024 1:02 PM Indications: pain Details: 22 G needle, anterolateral approach Medications (Right): 20 mg sodium hyaluronate (viscosup) 10 mg/mL(mw 2.4 -3.6 million) Medications (Left): 20 mg sodium hyaluronate (viscosup) 10 mg/mL(mw 2.4 -3.6 million) Outcome: tolerated well, no immediate complications The patient was instructed to use ice, NSAIDs, or Tylenol for pain as needed. The patient will call with any signs or concerns. Procedure, treatment alternatives, risks and benefits explained, specific risks discussed. Patient was prepped and draped in the usual sterile fashion. Result [facility] Ralph Milton MD PROCEDURE/MINOR SURGICAL OR DERABLES Final Result Performing Organization Address [facility] de Phone Number MANUALLY TRANSCRIBED RESULTS * (ABNORMAL) High risk HPV w/issa (12/01/2015 12:00 PM EDT) Hpv specimen type ThinPrep 12/07/2015 5:44 PM EDT [facility] Hpv 16 Negative Negative 12/08/2015 1:07 PM EDT [facility] Hpv 18 Negative Negative 12/08/2015 1:07 PM EDT [facility] Other high risk hpv Positive(A) Negative 12/08/2015 1:07 PM EDT [facility] Comment: For the DNA of any or combination of the following HPV types: 31,33,35,45, 52,56,58,59,66 and 68. 12/01/2015 12:0 0 PM EDT 12/07/2015 5:44 PM EDT us Beena Bailey APRN-PORTABLE IRRIGATION OPERATOR LAB BLOOD ORDERABLES Fi nal Result [facility] [address] [place] [address], [place] [facility] from Last 3 Months or Most Recently Relevant to Health Maintenance Insurance [place] [employer] Care Teams Medical Translator Relationship Specialty Start Date End Date Bonny Shaw APRN-CNP [address] [place] [address] PCP - General Nurse Practitioner 02/07/24
--- OUTSIDE RECORDS SUMMARY | 2024-10-13 14:26 | XMS_ITS | Encounter Summary ---
Author Organization [facility] Address [address] [place] [address] Care Team Providers Care Hazardous Waste Management Specialist Name Role Phone Shaikh TEODORA Villalta Unavailable [phone] Yon De La Rosa MD Primary Care Provider [phone] Bonny Shaw NP Unavailable [phone] Chuyita Sutherland CREDIT REPRESENTATIVE-TWISTHAND Unavailable Bhavin Miranda LPC Unavailable Unavailable Romelia Otero NP Unavailable [phone] Reason for Visit * Reason Comments Med Refill Encounter Details Date Type Department Care Team (Late st Contact Info) Description 08/13/2024 Refill [facility] [address] [facility] [address] [place] [address] Chuyita Sutherland, CREDIT REPRESENTATIVE-TWISTHAND [address] [facility] [address] [place] [address] Bipolar 2 disorder (HCC) Social History Tobacco [...] How often do you attend chur or caodaism services? More than 4 times per year 06/30/2024 Do you belong to any clubs o r organizations such as religious groups, unions, fraternal or athletic groups, or [...] Recorded Patient Health Questionnaire-2 Score 5 07/09/2024 [facility] Occup[facility] ional [facility] - Occupational Stress [...] in a usp (including now)? No 05/06/2023 Housing Stability Vital Sign Answer Ja e Recorded In the last 12 months, was t here a time when you were not able to pay the mortgage or rent on time? Yes 06/30/2024 In the past 12 months, how m any times have you moved where you were living? 0 06/30/2024 At any time in the past 12 m [facility], were you homeless or living in a usp (including now)? No 06/30/2024 Education Answer Date [...] [facility] [address] [facility] [address] [place] [phone] Chuyita Sutherland, CREDIT REPRESENTATIVE-TWISTHAND [address] [facility] [address] [place] [address] 11/18/2024 6:00 PM EDT Office Visit [facility] [address] [place] [address] Romelia Otero NP [address] [place] [address] 12/03/2024 12:00 PM EDT Social Work [facility] [address] [facility] [address] [place] [phone] Bhavin Miranda LPC documented as of this [...] documented as of this encounter Care Teams Hazardous Waste Management Specialist Relationship Specialty Start Date End Date Shaikh Villalta MD [address] [place] [address] PCP - [facility] 07/22/23 Yon De La Rosa MD [address] [place] [address] PCP - General Family Medicine 12/02/23 Bonny Shaw NP [address] [place] [address] Nurse Practitioner Family Medicine 12/02/23 10/06/24 Chuyita Sutherland, CREDIT REPRESENTATIVE-TWISTHAND [address] [facility] [place] [address] Nurse Practitioner Psychiatry 05/07/24 Bhavin Miranda LPC Supervisor [facility] 05/27/24 Romelia Otero NP [address] [place] [address] Nurse Practitioner Family Medicine 10/07/24 documented as of this encounter
--- OUTSIDE RECORDS SUMMARY | 2024-10-13 14:26 | XMS_ITS | Clinical Summary ---
Author Organization [facility] Address [address] [place] [address] [place] [address] Care Team Providers Care Glass Smoother Name Role Phone Unavailable Primary Care Provider Unavailabl e Encounters Date Type Department Care Team Description 10/06/2024 11:48 AM EDT - 10/06/2024 11:59 PM EDT Hospital Encounter Imaging [facility] [address] [place], [place] [address] Trey Winston MBBS Discharge Disposition: Home or Self Care from Last 3 Months Social History Tobacco Use Types Packs/Day Years [...] Mass Index 44.1 10/06/2024 12:45 PM EDT Plan of Treatment Health Maintenance Due Date Last Done Comments HEPATITIS C VIRUS SCREENING 1965 TETANUS 1965 HIV SCREENING DISCUSSION 1980 HEP B VACCINE (1 of 3 - 19+ 3-dose series) 1984 TDAP (ADULT) 1984 CERVICAL CANCER SCREENING DISCUSSION 1986 LIPID SCREENING 2005 COLORECTAL CANCER SCREENING DISCUSSION 2010 PNEUMOCOCCAL VACCINE SERIES (1 of 1 - PCV) 12/11/2015 ZOSTER (SHINGLES) VACCINE (1 of 2) 12/11/2015 COVID-19 VACCINE ( - 2023-2 5 season) 2023 INFLUENZA VACCINE (Season Ended) 2024 06/11/2023, 03/16/2019, 04/08/2017, Additional history exists MAMMOGRAM SCREENING DISCUSSION 06/09/2025 06/09/2024 Procedures Procedure Name Priority Date/Time Associated Diagnosis Comments MRI CARDIAC WITH CONTRAST FOR MORPH W/VELOCITY FLOW MAP Routine 10/06/2024 1:39 PM EDT HOCM (hypertrophic obstructive cardiomyopathy) HEMATOCRIT Routine 10/06/2024 12:55 PM EDT from Last 3 Months Results * MRI CARDIAC WITH CONTRAST W/VELOCITY FLOW MAP (10/06/2024 1:39 PM EDT) Anatomical Region Laterality Modality Chest, vascular Magnetic Resonan ce 10/06/2024 1:00 PM EDT Narrative 10/06/2024 4:47 PM EDT [facility] CMR Report Name: RAQUEL VILA : 1965 Scan Date: 2024-10-06 13:00:52 Electronically signed by Marianela Logan 16:54:30 VITALS ===== HEIGHT: 65 in [...] difference in comparison with the prior CMR [facility] 05/2018 report. SUMMARY ===== 58 yo F [...] 1.0 m/s. Trivial pulmonic regurgitation. OTHER FINDINGS: Lummi T1 values measured in the lateral wall given septal infarct scar. Normal jena T1 values with no evidence of diffuse [...] HCM (known/suspect) REFERRING PHYSICIAN: Latasha WINSTON ATTENDING PHYSICIAN: MARIANELA Guevara MD FELLOW: NERY HERNANDEZ TECHNOLOGIST: Sherita Kamara ===== Patient Account [id number] CPT Codes 17673, 27140 ICD10 Codes I42.1 Report generated by Pre[employer], a product of [employer] Procedure Note Marianela Logan MD - 10/06/2024 [facility] CMR Report Name: RAQUEL VILA : 1965 Scan Date: 2024-10-06 13:00:52 Electronically signed by Marianela Logan 16:54:30 VITALS ===== HEIGHT: 65 in [...] 1.0 m/s. Trivial pulmonic regurgitation. OTHER FINDINGS: Lummi T1 values measured in the lateral wall given septalinfarct scar. Normal jena T1 values with no evidence of diffuse [...] REASON(S) FOR SCAN: HCM (known/suspect) REFERRING PHYSICIAN: 1Kenney WINSTON ATTENDING PHYSICIAN:MARIANELA Guevara MD FELLOW: NERY HERNANDEZ TECHNOLOGIST: Sherita Kamara ===== Patient Account [id number] CPT Codes 40995, 70392 ICD10 Codes I42.1 Report generated by [employer], a product of [employer] Trey CERDA MR ORDERABLES Edited Result - Final * HEMATOCRIT (10/06/2024 12:55 PM EDT) Hematocrit 35.4 34.9 - 44.3 % 10/06/2024 2:53 PM EDT [facility] Blood Venipuncture / Unknown 10/06/2024 12:55 PM EDT 10/06/2024 2:51 PM EDT Trey CERDA HEMATOLOGY ORDERABLES Final Res ult [facility] [address] [phone] from Last 3 Months Insurance [facility]
[2024-10-15 16:09] LABS: Free Testosterone(Direct) 0.8 pg/mL (0.0-4.2); Testosterone <3 ng/dL (4-50)
== END 2024-10-13 14:18 | disposition home or self-care (01) ==
LOC: LAB 14:19
PROVIDERS: PCP Nurse Practitioner
DX: N95.1 Menopausal and female climacteric states (principal)
CPT/HCPCS: 36415; 84402; 84403